=== PATIENT | female | born 1955 | race Caucasian/White ===

== ENCOUNTER 2020-06-07 15:55 | Inpatient (IN) | payer MEDICARE ==
[~2020-06-07] VITALS: Ht 157.5 cm; Wt 74.1 kg
[2020-06-07] MEDS ORDERED: ACET500T68 PO (16:29)
[2020-06-07] MEDS ORDERED: ALBUTEROL SULFATE 2.5 MG/3 ML NEBU. IH PRN (16:30)
[2020-06-07] MEDS ORDERED: ACETAMINOPHEN 500 MG TABLET PO PRN (16:30)
[2020-06-07] MEDS ORDERED: ALBU2.5V8 IH (16:30)
[2020-06-07] MEDS ORDERED: MAG HYDROX/AL HYDROX/SIMETH 30 ML ORAL.SUSP PO PRN (16:30)
[2020-06-07] MEDS ORDERED: TRIAMCINOLONE ACETONIDE 0.1% TOPICAL OINTMENT 15GM TUBE. TP PRN (16:30)
[2020-06-07] MEDS ORDERED: KETOCONAZOLE 2% SHAMPOO 120ML BOTTLE. TP PRN (16:30)
[2020-06-07] MEDS ORDERED: MAGNESIUM HYDROXIDE 2,400 MG/30 ML ORAL.SUSP. PO PRN (16:30)
[2020-06-07] MEDS ORDERED: METHYL SALICYLATE/MENTHOL TOPICAL OINTMENT 57GM TUBE. TP PRN (16:30)
--- NOTE | 2020-06-07 16:46 | NUR ---
Admission Note with Justification for Admission to [facility] Patient admitted to [facility] for protective oversight for emergency stabilization of acute psychiatric crisis. Pt admitted from: [facility] after being at [facility] [place] Mode of arrival: Secure Transport Accompanied By: Secure Transport Precipitating behaviors that initiated intake and admission: paranoia, aud hallucinations, hitting herself in the head, and making statement "I want to end this" Description of failure of out patient attempts at stabilization in previous setting list behavior and medication trials: hospitalization at [facility], med adjustments, psych consult, one on one monitoring Behaviors and assessment findings upon admission: calm and cooperative during admission process Plan: Admit for protective oversight for adjustment and stabilization of medications, behaviors and mood. Intense treatment regimen including groups, medication adjustments, therapy, consistent regimen for ADL's, self care, and sleep hygiene. Daily monitoring by Inpatient staff, Psychiatry, and Medical Physician.
[2020-06-07] MEDS: DICLOFENAC SODIUM 1% TOPICAL GEL 100GM TUBE. TP SCH ×2 (17:00→20:20)
[2020-06-07] MEDS ORDERED: ISOS30TA68 PO (17:07)
[2020-06-07] MEDS ORDERED: ATOR20TA58 PO (17:07)
[2020-06-07] MEDS ORDERED: SENN8.6T11 PO (17:07)
[2020-06-07] MEDS ORDERED: CALC-56 PO (17:07)
[2020-06-07] MEDS ORDERED: PANT40TA6 PO (17:07)
[2020-06-07] MEDS ORDERED: QUET300T5 PO ×2 (17:07)
[2020-06-07] MEDS ORDERED: TRAM50TA PO (17:07)
[2020-06-07] MEDS ORDERED: SALS500T11 PO ×2 (17:07)
[2020-06-07] MEDS ORDERED: FURO20TA3 PO (17:07)
[2020-06-07] MEDS ORDERED: HYDR25TA PO (17:07)
[2020-06-07] MEDS ORDERED: ARIP15TA36 PO (17:07)
[2020-06-07] MEDS ORDERED: OLOD4MIS2 IH (17:07)
[2020-06-07] MEDS ORDERED: DICL100G18 TP (17:07)
[2020-06-07] MEDS ORDERED: ROPI0.25 PO (17:07)
[2020-06-07] MEDS ORDERED: MELA3TAB19 PO (17:07)
[2020-06-07] MEDS ORDERED: TRIA15OI TP (17:07)
[2020-06-07] MEDS ORDERED: CLON0.5T4 PO (17:07)
[2020-06-07] MEDS ORDERED: ASPI-889 PO (17:07)
[2020-06-07] MEDS ORDERED: EMOL85CR TP (17:07)
[2020-06-07] MEDS ORDERED: AMLO-186 PO (17:07)
[2020-06-07] MEDS ORDERED: METO25TA4 PO (17:07)
[2020-06-07] MEDS ORDERED: DOCU-109 PO (17:07)
[2020-06-07] MEDS ORDERED: KETO120S4 TP (17:07)
[2020-06-07] MEDS ORDERED: FLUO40CA9 PO (17:07)
[2020-06-07] MEDS ORDERED: LEVO50TA72 PO (17:07)
[2020-06-07] MEDS ORDERED: LIRA3PEN SQ (17:07)
[2020-06-07] MEDS ORDERED: POTA10TA5 PO (17:07)
[2020-06-07 17:18] VITALS: BP 122/85
[2020-06-07] MEDS ORDERED: VITS A & D/LANOLIN TOPICAL OINTMENT 42GM TUBE. TP PRN (17:45)
--- NOTE | 2020-06-07 18:10 | NUR ---
NSG NOTE; CALM WITH ON ARRIVAL AND WITH ASSESSMENT
--- NOTE | 2020-06-07 18:17 | EKG ---
[address] [address] Test Date: 2020-06-07 Test Time: 16:14:12 Pat Name: MANJINDER OMALLEY Department: Room: [address] [place] [address] Gender: F Restaurant Crew: : [id number] Requested By: FIDEL NICKERSON Order Number: [id number] Reading MD: Measurements Intervals [place] Rate: P: NE: QRS: QRSD: T: QT: QTc: Interpretive Statements
[2020-06-07] MEDS ORDERED: ALBUTEROL SULFATE 8GM INHALER. INH PRN (18:30)
[2020-06-07 18:57] LABS: BACTERIA,URINE 0 /HPF (0-FEW); BILIRUBIN,URINE NEG (NEG); CLARITY,URINE CLEAR; COLOR,URINE COLORLESS; GLUCOSE,URINE NEG (NEG); NITRITE,URINE NEG (NEG); RBC,URINE 0 /HPF (0-2); UROBILINOGEN,URINE 0.2 mg/dL (0.2 mg/dL); WBC,URINE 0 /HPF (0-4)
[2020-06-07 19:22] LABS: BASO # 0.1 x10^3/uL (0.0-0.2); BASO % 1 % (0-3); EOS # 0.2 x10^3/uL (0.0-0.7); EOS % 3 % (0-3); HEMATOCRIT 35.9 % (36.0-47.0); HEMOGLOBIN 11.6 g/dL (12.0-15.5); LYMPH # 1.4 x10^3/uL (1.0-4.8); LYMPH % 14 % (24-48); MEAN CORPUSCULAR HEMOGLOBIN 27 pg (25-35); MEAN CORPUSCULAR HGB CONC 32 g/dL (31-37); MEAN CORPUSCULAR VOLUME 83 fL (79-100); MONO # 0.9 x10^3/uL (0.0-1.1); MONO % 9 % (0-9); NEUT # 7.1 x10^3uL (1.8-7.7); NEUT % 74 % (31-73); PLATELET COUNT 340 x10^3/uL (140-400); RED BLOOD COUNT 4.35 x10^6/uL (3.50-5.40); RED CELL DISTRIBUTION WIDTH 16.5 % (11.5-14.5); WHITE BLOOD COUNT 9.6 x10^3/uL (4.0-11.0)
[2020-06-07 19:31] LABS: ALBUMIN 3.2 g/dL (3.4-5.0); ALBUMIN/GLOBULIN RATIO 0.8 (1.0-1.7); CALCIUM 9.3 mg/dL (8.5-10.1); CREATININE 1.3 mg/dL (0.6-1.0); MAGNESIUM 1.9 mg/dL (1.8-2.4); POTASSIUM 3.9 mmol/L (3.5-5.1); TOTAL BILIRUBIN 0.3 mg/dL (0.2-1.0); TOTAL PROTEIN 7.4 g/dL (6.4-8.2)
[2020-06-07] MEDS: MELATONIN 3 MG TABLET PO SCH (20:18)
[2020-06-07] MEDS: DOCUSATE SODIUM 100 MG CAPSULE PO SCH (20:18)
[2020-06-07] MEDS: SENNOSIDES 8.6 MG TABLET PO SCH (20:18)
[2020-06-07] MEDS: ATORVASTATIN CALCIUM 20 MG TABLET PO SCH (20:18)
[2020-06-07] MEDS: rOPINIRole 0.5 MG TABLET. PO SCH (20:18)
[2020-06-07] MEDS: POTASSIUM CHLORIDE 10 MEQ TABLET.ER. PO SCH (20:18)
[2020-06-07] MEDS: METOPROLOL TART IMMED RELEASE 25 MG TABLET. PO SCH (20:19)
[2020-06-07] MEDS: hydrOXYzine HCL 25 MG TABLET PO SCH (20:19)
[2020-06-07] MEDS: CALCIUM CARB/VIT D3 500/200 TABLET PO SCH (20:19)
[2020-06-07] MEDS: QUEtiapine 100 MG TABLET. PO SCH (20:20)
[2020-06-07] MEDS: MINERAL OIL/PETROLATUM TOPICAL CREAM 113GM JAR. TP SCH (20:20)
[2020-06-07] MEDS: traMADol 50 MG TABLET PO PRN (23:35)
[2020-06-07] MEDS: ACETAMINOPHEN 325 MG TABLET PO PRN (23:35)
--- NOTE | 2020-06-08 00:08 | NUR ---
Pt has been in her room tonight, meds were taken whole without difficulty. She said she is hearing voices telling her she is a bitch and worthless. She also said she sees masked faces outside the window. She said she felt paranoid about her bed and being in the hospital. She finally is settled in bed with cpap on. PRN pain meds given for pain of recent surgical sites Left chest. Incisions are open to air, clean and dry with sutures in place and no sign of infection.
--- NOTE | 2020-06-08 01:16 | NUR ---
Pt is sleeping now.
[2020-06-08] MEDS: LEVOTHYROXINE 50 MCG TABLET PO SCH (05:41)
[2020-06-08] MEDS: SENNOSIDES 8.6 MG TABLET PO SCH ×2 (05:43→14:36)
[2020-06-08 06:24] VITALS: BP 135/70
[2020-06-08] MEDS: CALCIUM CARB/VIT D3 500/200 TABLET PO SCH ×2 (07:33→19:31)
[2020-06-08] MEDS: hydrOXYzine HCL 25 MG TABLET PO SCH ×3 (07:34→19:32)
[2020-06-08] MEDS: DOCUSATE SODIUM 100 MG CAPSULE PO SCH ×2 (07:34→19:32)
[2020-06-08] MEDS: POTASSIUM CHLORIDE 10 MEQ TABLET.ER. PO SCH ×3 (07:34→19:32)
[2020-06-08] MEDS: METOPROLOL TART IMMED RELEASE 25 MG TABLET. PO SCH ×2 (07:35→19:32)
[2020-06-08] MEDS: ISOSORBIDE MONONITRATE ER 30 MG TAB.ER.24H PO SCH (07:37)
[2020-06-08] MEDS: QUEtiapine 100 MG TABLET. PO SCH ×2 (07:37→19:33)
[2020-06-08] MEDS: ARIPiprazole 15 MG TABLET PO SCH (07:37)
[2020-06-08] MEDS: FLUoxetine HCL 20 MG CAPSULE PO SCH (07:37)
[2020-06-08] MEDS: LIRAGLUTIDE 1.8 MG SQ SCH (07:38)
[2020-06-08] MEDS: PANTOPRAZOLE 40 MG TABLET. PO SCH (07:38)
[2020-06-08] MEDS: ASPIRIN ENTERIC COATED 81 MG TABLET.DR. PO SCH (07:38)
[2020-06-08] MEDS: NON FORMULARY ITEM (Olodaterol HCl (Striverdi Respimat) 4 GM) IH SCH (07:38)
[2020-06-08] MEDS: amLODIPine BESYLATE 5 MG TABLET PO SCH (07:38)
[2020-06-08] MEDS: DICLOFENAC SODIUM 1% TOPICAL GEL 100GM TUBE. TP SCH ×4 (07:40→19:39)
[2020-06-08] MEDS: MINERAL OIL/PETROLATUM TOPICAL CREAM 113GM JAR. TP SCH ×2 (07:41→19:39)
--- NOTE | 2020-06-08 09:42 | NUR ---
NSG NOTE; RELIGIOSITY PT IN HALLWAY TALKING TO HERSELF AND ASKING TO TALK TO GOD. WHEN I ENGAGED HER IN CONVERSATION IN HER ROOM, SHE WAS MORE WORRIED ABOUT HER CAT AND MISSING AN APPT WITH HER [facility]. PER HER REQUEST, I LEFT A MESSAGE WITH NELIA SWEENEY AT THE [facility], EXT [id number], TO LET HER KNOW THE PT IS HERE.
--- NOTE | 2020-06-08 10:17 | NUR ---
NSG NOTE; CAT IN BOARDING: PT'S CAT, TIMI, IS BEING BOARDED AT [facility], , AND HAS RESERVATIONS UNTIL June. IF PT STAYS LONGER AT [facility], THEY NEED TO BE CALLED TO EXTEND THEIR SERVICE.
[2020-06-08] MEDS: SALSALATE 500 MG PO SCH ×2 (10:46→19:36)
--- NOTE | 2020-06-08 14:15 | NUR ---
ACTIVITY THERAPY ASSESSMENT completed based on notes, observation and interview. Pt was sitting in her wheelchair and the day room. Pt was compliant and wiling to answer questions. When asked what she likes to pt said "treasure every minute." Pt said that she likes the terminator movie as she began to quote the movie. Pt said that she also likes all kinds of music. Pt was having hallucinations throughout assessment and she said they were calling her mean names. Pt reports she is not and has no children. Pt said that if she had children "it would come out with ten heads." AT asked pt about her hallucinations and she started to become over stimulated. There were some topics pt did not want to talk about. Pt became frustrated with her hallucinations and the conversations around her. Pt reported that she had part of her lung taken out. Pt is oriented to placement prior to admission, year, date and location. AT asked pt if she reported any stress at this time and she said "I think my head is going to explode." Pt spoke about her cat, Flurafaely, and said that someone is taking care of him. Pt said that she would like to make a phone call to have a friend check on her apartment. Pt was distracted throughout assessment but pleasant and redirectable. Initial goal aimed to increase stress management and relaxation skills. Pt will participate in at least three individual or group Activity Therapy sessions per week. Addendum: 06/14/20 at 1108 by CHIARA LUGO ACT Goal repeated 06/14
[2020-06-08] MEDS: FUROSEMIDE 20 MG TABLET PO SCH (14:36)
[2020-06-08 15:46] VITALS: BP 115/68
--- NOTE | 2020-06-08 16:26 | NUR ---
NSG NOTE; PT'S APARTMENT COMPLEX PHONE NUMBER: MANAGERS BIANCA OR FARAZ RODRIGUEZ APTS: [phone]
--- NOTE | 2020-06-08 16:28 | NUR ---
NSG NOTE; [place] PSYCH INSTRUCTIONAL COACH: NELIA HORN RN IS THE PT'S PSYCH INSTRUCTIONAL COACH AT THE [facility] IN [place]. [phone] EXT [id number] OR CELL [phone]
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
[2020-06-08 19:19] LABS: THYROID STIM HORMONE (TSH) 2.087 uIU/mL (0.358-3.740)
[2020-06-08] MEDS: traMADol 50 MG TABLET PO PRN (19:27)
[2020-06-08] MEDS: MELATONIN 3 MG TABLET PO SCH (19:32)
[2020-06-08] MEDS: ATORVASTATIN CALCIUM 20 MG TABLET PO SCH (19:33)
[2020-06-08] MEDS: rOPINIRole 0.5 MG TABLET. PO SCH (19:33)
[2020-06-08 22:07] LABS: THYROXINE 3.7 ug/dL (4.5-12.0)
[2020-06-09 00:07] LABS: HEMOGLOBIN A1C 5.5 % (4.8-5.6)
--- NOTE | 2020-06-09 03:04 | NUR ---
Pt was mainly in her room tonight and has been paranoid and having delusions. She said the music tablet was controlling her brain. When she hears talking on the unit she thinks people are talking about her. She took meds whole without difficulty was cooperative with HS care and has been sleeping well and is using her using her CPAP.
[2020-06-09] MEDS: LEVOTHYROXINE 50 MCG TABLET PO SCH (05:25)
[2020-06-09] MEDS: SENNOSIDES 8.6 MG TABLET PO SCH ×2 (05:25→16:50)
[2020-06-09 06:13] VITALS: BP 116/71
[2020-06-09] MEDS: ACETAMINOPHEN 325 MG TABLET PO PRN (06:32)
--- NOTE | 2020-06-09 06:39 | NUR ---
Pt temp 99 this and reports some non productive cough. IS provided and pt familiar with use, increased fluid intake explained and pt verbalized understanding. pt is recent post op for lobectomy, operative site without s/s of infection. PRN Tylenol given for incision soreness.
[2020-06-09] MEDS: NON FORMULARY ITEM (Olodaterol HCl (Striverdi Respimat) 4 GM) IH SCH (08:00)
[2020-06-09] MEDS: LIRAGLUTIDE 1.8 MG SQ SCH (08:00)
[2020-06-09] MEDS: FLUoxetine HCL 20 MG CAPSULE PO SCH (08:14)
[2020-06-09] MEDS: amLODIPine BESYLATE 5 MG TABLET PO SCH (08:15)
[2020-06-09] MEDS: ISOSORBIDE MONONITRATE ER 30 MG TAB.ER.24H PO SCH (08:15)
[2020-06-09] MEDS: DOCUSATE SODIUM 100 MG CAPSULE PO SCH ×2 (08:15→20:19)
[2020-06-09] MEDS: PANTOPRAZOLE 40 MG TABLET. PO SCH (08:15)
[2020-06-09] MEDS: ARIPiprazole 15 MG TABLET PO SCH (08:16)
[2020-06-09] MEDS: CALCIUM CARB/VIT D3 500/200 TABLET PO SCH ×2 (08:16→20:19)
[2020-06-09] MEDS: QUEtiapine 100 MG TABLET. PO SCH ×2 (08:16→20:18)
[2020-06-09] MEDS: hydrOXYzine HCL 25 MG TABLET PO SCH ×3 (08:16→20:19)
[2020-06-09] MEDS: POTASSIUM CHLORIDE 10 MEQ TABLET.ER. PO SCH ×3 (08:16→20:20)
[2020-06-09] MEDS: SALSALATE 500 MG PO SCH ×2 (08:17→20:23)
[2020-06-09] MEDS: ASPIRIN ENTERIC COATED 81 MG TABLET.DR. PO SCH (08:17)
[2020-06-09] MEDS: METOPROLOL TART IMMED RELEASE 25 MG TABLET. PO SCH ×2 (08:17→20:21)
[2020-06-09] MEDS: DICLOFENAC SODIUM 1% TOPICAL GEL 100GM TUBE. TP SCH ×4 (08:19→20:22)
[2020-06-09] MEDS: MINERAL OIL/PETROLATUM TOPICAL CREAM 113GM JAR. TP SCH ×2 (08:19→20:23)
--- NOTE | 2020-06-09 09:48 | NUR ---
Patient is calm and using her I.S. Patient calmly took her medication. Patient has no further needs at this time.
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
[2020-06-09 16:46] VITALS: BP 108/60
[2020-06-09] MEDS: FUROSEMIDE 20 MG TABLET PO SCH (16:50)
[2020-06-09] MEDS: traMADol 50 MG TABLET PO PRN (16:52)
[2020-06-09] MEDS: MELATONIN 3 MG TABLET PO SCH (20:18)
[2020-06-09] MEDS: ATORVASTATIN CALCIUM 20 MG TABLET PO SCH (20:19)
[2020-06-09] MEDS: rOPINIRole 0.5 MG TABLET. PO SCH (20:20)
[2020-06-09] MEDS: clonazePAM 0.5 MG TABLET PO PRN (21:27)
--- NOTE | 2020-06-09 23:41 | NUR ---
Pt located in her room this evening. Pt compliant with whole medications; however becomes very short and irritable with assessment questions. When asked if pt is having hallucinations, pt stated "If I don't talk about them, they go away." Later in the evening, pt up at the nurses station window seen hitting her head repeatedly with her fist. Pt anxious and stated that she is hearing voices. Pt stated "you don't want to know what they say about you." PRN Klonopin administered at that time.
--- NOTE | 2020-06-09 23:54 | PN ---
DATE: 06/09/2020 SUBJECTIVE: The patient was seen today, met with the staff, chart reviewed. Staff reports that she is still hallucinating, paranoid, religiously preoccupied, but overall cooperative. The patient also states "I am delusional." The patient is having difficulty starting out the reality ____ delusions and hallucinations. OBSERVATION: VITAL SIGNS: Temperature 99.7, blood pressure 116/71, pulse 73, respirations 16, O2 sat 95%. GENERAL: Slept about 6 hours last night. The patient's appetite is fair. LABORATORY DATA: The patient's lab reviewed. Hemoglobin 11.6. The patient's TSH was 2.087 and thyroxine that is T4 3.7, total T3 was 55. The patient's creatinine level was 1.3, glucose 145. MEDICATIONS: The patient's current medications include Abilify 15 mg daily, Seroquel 300 mg daily and 600 mg at night, melatonin 3 mg at night and Klonopin 0.5 mg b.i.d. p.r.n. The patient is not having any side effects. ASSESSMENT: Schizoaffective disorder, depressed and also psychotic symptoms. PLAN: To continue with the current treatment. LENGTH OF STAY: 7-10 days. FIDEL NICKERSON MD DR: MIKY/radha JOB#: [id number] / [id number]
[2020-06-10] MEDS: LEVOTHYROXINE 50 MCG TABLET PO SCH (05:36)
[2020-06-10 06:04] VITALS: BP 114/67
[2020-06-10] MEDS: NON FORMULARY ITEM (Olodaterol HCl (Striverdi Respimat) 4 GM) IH SCH (07:15)
[2020-06-10] MEDS: LIRAGLUTIDE 1.8 MG SQ SCH (07:22)
[2020-06-10] MEDS: hydrOXYzine HCL 25 MG TABLET PO SCH ×3 (07:59→19:58)
[2020-06-10] MEDS: ASPIRIN ENTERIC COATED 81 MG TABLET.DR. PO SCH (07:59)
[2020-06-10] MEDS: SENNOSIDES 8.6 MG TABLET PO SCH ×2 (07:59→19:58)
[2020-06-10] MEDS: SALSALATE 500 MG PO SCH ×2 (07:59→20:17)
[2020-06-10] MEDS: POTASSIUM CHLORIDE 10 MEQ TABLET.ER. PO SCH ×3 (08:00→19:59)
[2020-06-10] MEDS: DOCUSATE SODIUM 100 MG CAPSULE PO SCH ×2 (08:00→19:59)
[2020-06-10] MEDS: CALCIUM CARB/VIT D3 500/200 TABLET PO SCH ×2 (08:00→19:58)
[2020-06-10] MEDS: METOPROLOL TART IMMED RELEASE 25 MG TABLET. PO SCH ×2 (08:00→19:59)
[2020-06-10] MEDS: QUEtiapine 100 MG TABLET. PO SCH ×2 (08:00→20:00)
[2020-06-10] MEDS: PANTOPRAZOLE 40 MG TABLET. PO SCH (08:01)
[2020-06-10] MEDS: ARIPiprazole 15 MG TABLET PO SCH (08:01)
[2020-06-10] MEDS: ISOSORBIDE MONONITRATE ER 30 MG TAB.ER.24H PO SCH (08:01)
[2020-06-10] MEDS: FLUoxetine HCL 20 MG CAPSULE PO SCH (08:01)
[2020-06-10] MEDS: amLODIPine BESYLATE 5 MG TABLET PO SCH (08:01)
[2020-06-10] MEDS: DICLOFENAC SODIUM 1% TOPICAL GEL 100GM TUBE. TP SCH ×4 (08:02→20:10)
[2020-06-10] MEDS: MINERAL OIL/PETROLATUM TOPICAL CREAM 113GM JAR. TP SCH ×2 (08:02→20:11)
--- NOTE | 2020-06-10 09:04 | NUR ---
Patient looking forward to calling family. patient tearful this morning but compliant with medication and assessment. patient misses her parents.
[2020-06-10] MEDS: clonazePAM 0.5 MG TABLET PO PRN (10:48)
[2020-06-10 16:21] VITALS: BP 123/70
[2020-06-10] MEDS: FUROSEMIDE 20 MG TABLET PO SCH (17:14)
[2020-06-10] MEDS: rOPINIRole 0.5 MG TABLET. PO SCH (19:57)
[2020-06-10] MEDS: ATORVASTATIN CALCIUM 20 MG TABLET PO SCH (19:58)
[2020-06-10] MEDS: MELATONIN 3 MG TABLET PO SCH (20:00)
--- NOTE | 2020-06-10 22:00 | PN ---
DATE: 06/10/2020 SUBJECTIVE: The patient was seen today, met with the staff, chart reviewed, and covering for Dr. Escalante. Staff reports the patient is still hallucinating, paranoid, not happy with herself. The patient also appears to be depressed. OBSERVATION: VITAL SIGNS: Temperature 97.2, blood pressure 114/67, pulse 64, respirations 14, O2 sat 94%. GENERAL: Slept only about 2-1/2 hours last night. The patient's appetite is decreased. MEDICATIONS: The patient's current medications include Abilify 15 mg daily, amlodipine 5 mg daily, Seroquel 300 mg daily, Prozac 80 mg daily, Seroquel 600 mg at night, melatonin 3 mg at night. She is also on Protonix, levothyroxine, ropinirole, metoprolol, Lipitor, and tramadol. The patient is not having any side effects. LABORATORY DATA: The patient's lab reviewed. ASSESSMENT: Schizoaffective disorder, depressed and psychotic symptoms. PLAN: To continue with treatment. LENGTH OF STAY: 7-10 days. FIDEL NICKERSON MD DR: MIKY/radha JOB#: [id number] / [id number]
--- NOTE | 2020-06-10 22:32 | CONS ---
DATE OF CONSULTATION: 06/10/2020 ATTENDING PHYSICIAN: Leah Allen MD HISTORY OF PRESENT ILLNESS: We are asked to see the patient for medical consultation. The patient is a 64-year-old female, sent here for direct admit from [facility]. She has longstanding medical issues with underlying schizoaffective disorder and major depression. She is a smoker. She also recently had a surgical procedure. Evidently, it was a thoracoscopy of the left lung with eventual partial lobectomy and again details are sketchy. This was done 9 days ago. There is still a thoracoscopy scar with sutures. We are in the process of calling her surgeon, Dr. Mclean, to ascertain what the pathology report was, whether it was benign or malignant and how long that the sutures need to stay in before they can be removed. In the meantime, she is medically stable. She is alert. She denied any chest pain, shortness of breath, palpitation, fevers or chills. CURRENT MEDICATIONS: Lists include the following: She is on Tylenol, aluminum hydroxide, albuterol, amlodipine, Abilify, aspirin, Lipitor, calcium, Klonopin, Voltaren, Colace, Prozac, Lasix, Atarax, Imdur, ketaconazole, Synthroid, magnesium hydroxide, melatonin, metoprolol, Protonix, potassium, Seroquel, Requip, salsalate, senna, tramadol, triamcinolone, vitamin A. ALLERGIES: SHE HAS ALLERGIES TO CHLORPROMAZINE, DIPHENHYDRAMINE, LISINOPRIL AND ZOCOR. EXACT REACTIONS UNCLEAR. SOCIAL HISTORY: She is a smoker. No alcohol use. FAMILY HISTORY: Noncontributory. REVIEW OF SYSTEMS: Significant for the recent left thoracoscopy, she is unclear as to what the diagnosis is. We are in the process of trying to find out the pathology report. No COVID exposure. She is still a smoker. All other systems reviewed and turned to be negative. PHYSICAL EXAMINATION: GENERAL: When I saw her, this is a pleasant, middle-aged female. INITIAL VITAL SIGNS: Showed a blood pressure 114/67, pulse 64 and regular, temperature 97.2 degrees Fahrenheit. Room air saturation 94% on room air. HEENT: Head is without trauma. Pupils are reactive. Sclerae nonicteric. Oropharynx is clear. NECK: Supple, no bruits. LUNGS: Otherwise clear. CARDIOVASCULAR: Showed regular heart tones. No gallops. ABDOMEN: Soft, obese, protuberant. I looked at her thorax, there is a curvilinear small thoracoscopy scar. The skin is clean. There is no inflammation. EXTREMITIES: Showed trace edema. NEUROLOGIC: Focally intact. Speech is fluent. She had no focal deficits. SKIN: Warm and dry. PERTINENT LABORATORY STUDIES: Hemoglobin 11.6 g/dL with white count of 9600. Admission electrolytes within normal range. Creatinine is 1.3 mg/dL, nonfasting blood sugar 145. Iron level is 46. Transaminases are normal. Cholesterol is 172. Thyroid function studies were normal. Serology negative for treponema pallidum. ASSESSMENT: 1. This 64-year-old female has underlying schizoaffective disorder. She is here for further evaluation and treatment of her underlying condition. 2. Chronic obstructive pulmonary disease. 3. Recent thoracoscopy with resection, partial lobectomy of the left lung. The pathology is pending. She still has sutures in from the procedure. 4. Essential hypertension. 5. Hypothyroidism, on replacement. RECOMMENDATIONS: 1. The patient is stable from medical standpoint. Meds were reviewed and should be continued. 2. I have asked the nursing staff to call [facility] and the offices of Dr. Mclean, a thoracic surgeon who performed the procedure. We are in the process of trying to track down the pathology reports to report to the patient as well as instructions as when to remove the sutures. Thank you again for asking me to see this patient for medical consultation. We should gladly follow along during her inpatient care. NELLY BRADFORD MD DR: MALISSA/radha JOB#: [id number] / [id number]
--- NOTE | 2020-06-11 03:04 | NUR ---
Pt has been in her room tonight. Meds were taken whole. She has poor eye contact and was not as interactive with nurse tonight. Since going to bed she has been sleeping well.
[2020-06-11] MEDS: LEVOTHYROXINE 50 MCG TABLET PO SCH (05:38)
[2020-06-11] MEDS: traMADol 50 MG TABLET PO PRN (05:39)
--- NOTE | 2020-06-11 05:39 | NUR ---
PRN Tramadol given for L chest incisional pain.
[2020-06-11 06:14] VITALS: BP 132/87
[2020-06-11] MEDS: ARIPiprazole 15 MG TABLET PO SCH (07:33)
[2020-06-11] MEDS: QUEtiapine 100 MG TABLET. PO SCH ×2 (07:33→20:23)
[2020-06-11] MEDS: FLUoxetine HCL 20 MG CAPSULE PO SCH (07:33)
[2020-06-11] MEDS: PANTOPRAZOLE 40 MG TABLET. PO SCH (07:34)
[2020-06-11] MEDS: hydrOXYzine HCL 25 MG TABLET PO SCH ×3 (07:34→20:25)
[2020-06-11] MEDS: amLODIPine BESYLATE 5 MG TABLET PO SCH (07:34)
[2020-06-11] MEDS: ISOSORBIDE MONONITRATE ER 30 MG TAB.ER.24H PO SCH (07:34)
[2020-06-11] MEDS: POTASSIUM CHLORIDE 10 MEQ TABLET.ER. PO SCH ×3 (07:34→20:22)
[2020-06-11] MEDS: SENNOSIDES 8.6 MG TABLET PO SCH ×2 (07:34→20:24)
[2020-06-11] MEDS: CALCIUM CARB/VIT D3 500/200 TABLET PO SCH ×2 (07:34→20:23)
[2020-06-11] MEDS: METOPROLOL TART IMMED RELEASE 25 MG TABLET. PO SCH ×2 (07:35→20:24)
[2020-06-11] MEDS: DOCUSATE SODIUM 100 MG CAPSULE PO SCH ×2 (07:35→20:24)
[2020-06-11] MEDS: LIRAGLUTIDE 1.8 MG SQ SCH (07:36)
[2020-06-11] MEDS: NON FORMULARY ITEM (Olodaterol HCl (Striverdi Respimat) 4 GM) IH SCH (07:36)
[2020-06-11] MEDS: ASPIRIN ENTERIC COATED 81 MG TABLET.DR. PO SCH (07:36)
[2020-06-11] MEDS: SALSALATE 500 MG PO SCH ×2 (07:39→20:23)
[2020-06-11] MEDS: MINERAL OIL/PETROLATUM TOPICAL CREAM 113GM JAR. TP SCH ×2 (07:39→20:27)
[2020-06-11] MEDS: DICLOFENAC SODIUM 1% TOPICAL GEL 100GM TUBE. TP SCH ×4 (07:39→20:26)
[2020-06-11] MEDS ORDERED: POLYETHYLENE GLYCOL 3350 17 GM PACKET. PO PRN (11:00)
[2020-06-11] MEDS: FUROSEMIDE 20 MG TABLET PO SCH (14:03)
--- NOTE | 2020-06-11 14:46 | NUR ---
NSG NOTE; PATHOLOGY REPORT OF LUNG MASS PT HAD GAURI LOBECTOMY ON 05/31/20. 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
[2020-06-11 15:42] VITALS: BP 168/89
--- NOTE | 2020-06-11 15:51 | NUR ---
PAULINE NOTE; SUTCHES REMOVED DR MCALLISTER'S OFFICE CALLED AND ORDERS RECEIVED FROM JENNY NAILS TO REMOVE TO STITCHES STILL IN PLACE ON ONE TROCAR PUNCTURE SITE ON HER LEFT FLANK. SUT Addendum: 06/11/20 at 1556 by ERIC REYNOLDS RN SUTURES REMOVED WITHOUT DIFFICULTY. REDNESS NOTED AT SITE. WOUND CARE HERE TO ASSESS AND DRESS SITE
--- NOTE | 2020-06-11 16:12 | NUR ---
NSG NOTE; DOWN ON HERSELF MANJINDER CONTINUES TO BE DOWN ON HERSELF, SAYING SHE WANTS TO WEAR A MASK TO HIDE HER UGLY FACE. SHE ALSO CALLS HERSELF A CRAZY OLD LADY AND MAKES COMMENTS ABOUT HOW NO ONE WANTS TO BE AROUND HER. SHE DID SPEND A LOT OF TIME IN THE DAYROOM TODAY PARTICIPATING IN ACTIVITIES AND HAS BEEN CALM AND COMPLIANT.
--- NOTE | 2020-06-11 16:15 | NUR ---
Wound Care Wound Type/Assessment: patient seen per wound care consult. see wound assessment. SHANTA Harmon with patient and had just removed the suture to the left flank area, some redness noted, the area was cleaned, measured and redressed with a silver contact layer with a foam dressing. patient has IAD to the bilateral buttocks that appears to be healing, a very small open area to the right buttock, this area was cleaned, measured, pictured and redressed with Calazime cream. patient has some redness under the pannus, recommendations of nystatin powder. Treatment Recommendations/Plan: Recommendations to bilateral buttocks, cleanse the area and then apply A & D ointment or Calazime cream, as needed. Recommendations for the left flank wound, cleanse the area then apply a silver contact layer with a foam dressing, change every 3 days. Recommendations to the redness under the pannus, cleanse the area and apply nystatin powder. Discharge Recommendations for dressings: Notified SHANTA Harmon about the POC and wound care will continue to f/u.
[2020-06-11] MEDS: rOPINIRole 0.5 MG TABLET. PO SCH (20:17)
[2020-06-11] MEDS: MELATONIN 3 MG TABLET PO SCH (20:23)
[2020-06-11] MEDS: ATORVASTATIN CALCIUM 20 MG TABLET PO SCH (20:24)
--- NOTE | 2020-06-11 20:46 | PN ---
DATE: 06/11/2020 SUBJECTIVE: The patient was seen today, met with the staff, chart reviewed, and covering for Dr. Escalante. Staff reports continued to have paranoid thinking and also having auditory hallucinations. The patient continues to be depressed. OBSERVATION: VITAL SIGNS: Temperature 98.2, blood pressure 132/87, pulse 60, respirations 16, O2 sat 96%. GENERAL: Slept about 5 hours last night. The patient's appetite is fair. MEDICATIONS: The patient is currently on Abilify 15 mg daily, amlodipine 5 mg daily, Seroquel 300 mg daily, Prozac 80 mg daily, Seroquel 600 mg at night, melatonin 3 mg at night. She is also on Protonix, levothyroxine, ropinirole, metoprolol, Lipitor, and tramadol. The patient is not having any side effects from medications. LABORATORY DATA: The patient's lab reviewed. ASSESSMENT: Schizoaffective disorder, depressed, with psychotic symptoms. PLAN: To continue with the treatment. LENGTH OF STAY: 7-10 days. FIDEL NICKERSON MD DR: MIKY/radha JOB#: [id number] / [id number]
--- NOTE | 2020-06-12 01:10 | NUR ---
Last evening pt was in the hallway and said she is hallucinating a lot. She said the people in the "fishbowl", indicating the nurses station, all hate her. Then she said God hates her and is going to kill her. Then said when we ask her about her hallucinations it makes them get worse. She took her meds whole without issue and went to bed and has been sleeping.
[2020-06-12] MEDS: LEVOTHYROXINE 50 MCG TABLET PO SCH (02:43)
[2020-06-12] MEDS: ACETAMINOPHEN 325 MG TABLET PO PRN (02:43)
[2020-06-12] MEDS: clonazePAM 0.5 MG TABLET PO PRN ×2 (02:56→13:18)
--- NOTE | 2020-06-12 03:00 | NUR ---
PRN tylenol and clonazepam given. Pt reports pain of surgical site and said her mind is racing.
[2020-06-12 06:05] VITALS: BP 107/78
[2020-06-12] MEDS: NON FORMULARY ITEM (Olodaterol HCl (Striverdi Respimat) 4 GM) IH SCH (08:00)
[2020-06-12] MEDS: LIRAGLUTIDE 1.8 MG SQ SCH (08:00)
[2020-06-12] MEDS: ISOSORBIDE MONONITRATE ER 30 MG TAB.ER.24H PO SCH (08:00)
[2020-06-12] MEDS: CALCIUM CARB/VIT D3 500/200 TABLET PO SCH ×2 (08:22→19:45)
[2020-06-12] MEDS: SALSALATE 500 MG PO SCH ×2 (08:22→20:08)
[2020-06-12] MEDS: amLODIPine BESYLATE 5 MG TABLET PO SCH (08:22)
[2020-06-12] MEDS: ASPIRIN ENTERIC COATED 81 MG TABLET.DR. PO SCH (08:23)
[2020-06-12] MEDS: POTASSIUM CHLORIDE 10 MEQ TABLET.ER. PO SCH ×3 (08:23→19:45)
[2020-06-12] MEDS: hydrOXYzine HCL 25 MG TABLET PO SCH ×3 (08:23→19:46)
[2020-06-12] MEDS: ARIPiprazole 15 MG TABLET PO SCH (08:23)
[2020-06-12] MEDS: DOCUSATE SODIUM 100 MG CAPSULE PO SCH ×2 (08:24→19:46)
[2020-06-12] MEDS: SENNOSIDES 8.6 MG TABLET PO SCH ×2 (08:24→19:46)
[2020-06-12] MEDS: QUEtiapine 100 MG TABLET. PO SCH ×2 (08:24→19:46)
[2020-06-12] MEDS: FLUoxetine HCL 20 MG CAPSULE PO SCH (08:24)
[2020-06-12] MEDS: PANTOPRAZOLE 40 MG TABLET. PO SCH (08:24)
[2020-06-12] MEDS: METOPROLOL TART IMMED RELEASE 25 MG TABLET. PO SCH ×2 (09:00→19:47)
[2020-06-12] MEDS: DICLOFENAC SODIUM 1% TOPICAL GEL 100GM TUBE. TP SCH ×4 (09:00→20:09)
[2020-06-12] MEDS: MINERAL OIL/PETROLATUM TOPICAL CREAM 113GM JAR. TP SCH ×2 (09:00→20:11)
[2020-06-12] MEDS: FUROSEMIDE 20 MG TABLET PO SCH (13:18)
--- NOTE | 2020-06-12 13:32 | NUR ---
PATIENT LOCATED IN A HALLWAY THIS AM UPON ASSESSMENT, COMPLIANT WITH MEDICATIONS, SLIGHTLY IRRITABLE WITH ASSESSMENT, STATED SHE HEARS VOICES, ALSO SHE C/O TINNITUS , STATED THAT RINGING IN HER EARS GETTING TO LOUD AND DRIVES HER CRAZY. PATIENT TALKED TO GLADYS WOMACK LATER AND C/O SEEING THE MED ON FRONT OF HER EXPOSED HIMSELF NAKED BUT WAS NOT SURE IF THAT WAS REAL. PATIENT BECAME ANXIOUS AND DISORGANIZED THIS AFTERNOON, CLONAZEPAM PRN GIVEN TO DECREASE ANXIETY.
--- NOTE | 2020-06-12 14:53 | NUR ---
CONSULT FOR DR. ESPOSITO HAS BEEN PAGED.
--- NOTE | 2020-06-12 15:15 | NUR ---
AT walked past pt room and heard a noise. AT turned around to look into pt's room. Pt had broken pieces of her CPAP machine. Pt started to curse and say "what do you care, it's not yours it's mine." AT tried to redirect pt at this point and tell her that we would fix the CPAP machine. Nurse came in at this time. Pt began making SI statements such as "I'm already " "tell me how I should do it" she began to talk about going outside and jumping or using a ladder. AT and Nurse were trying to redirect at this point but she continued to make SI statements. Nurse requested pt to move to the day room where she could be closely monitored.
[2020-06-12 15:57] VITALS: BP 129/78
--- NOTE | 2020-06-12 17:32 | NUR ---
Nursing note: Pt was in her room when AT caught my attention and I went into pt's room to assist. Pt was holding parts of her CPAP machine stating "I'm only hurting myself, what does it matter to you?" Pt was visibly upset and having a difficult time with her feelings, believing that staff does not care about her. Redirection was attempted multiple times, but pt proceeded to talk about dying and killing herself asking "How should I do it? Jump through the window and break it? Go outside and use that ladder?" Attempts at redirection were continued and it was suggested to pt that she go outside on the patio to get some fresh air while she could also be more closely monitored by staff. Primary nurse notified of interaction.
[2020-06-12] MEDS: rOPINIRole 0.5 MG TABLET. PO SCH (19:46)
[2020-06-12] MEDS: ATORVASTATIN CALCIUM 20 MG TABLET PO SCH (19:46)
[2020-06-12] MEDS: MELATONIN 3 MG TABLET PO SCH (19:46)
--- NOTE | 2020-06-12 21:47 | NUR ---
Nursing Note Pt pleasant and cooperative, states that dayshift will not speak to her and she feels like she has been alienated here. She denies SI, states she said things she didn't mean and that she wanted them to talk to her. We talked about starting fresh, with a new shift, about letting go, and not holding grudges. She felt validated and ready for HS.
[2020-06-12] MEDS: traMADol 50 MG TABLET PO PRN (22:39)
[2020-06-13] MEDS: ACETAMINOPHEN 325 MG TABLET PO PRN ×2 (04:20→22:29)
--- NOTE | 2020-06-13 04:22 | NUR ---
PRN tylenol given per patient request for pain in her left side.
[2020-06-13] MEDS: LEVOTHYROXINE 50 MCG TABLET PO SCH (05:20)
[2020-06-13 06:01] VITALS: BP 165/76
[2020-06-13] MEDS: traMADol 50 MG TABLET PO PRN (06:30)
[2020-06-13] MEDS: ASPIRIN ENTERIC COATED 81 MG TABLET.DR. PO SCH (07:58)
[2020-06-13] MEDS: FLUoxetine HCL 20 MG CAPSULE PO SCH (07:58)
[2020-06-13] MEDS: amLODIPine BESYLATE 5 MG TABLET PO SCH (07:59)
[2020-06-13] MEDS: ISOSORBIDE MONONITRATE ER 30 MG TAB.ER.24H PO SCH (07:59)
[2020-06-13] MEDS: DOCUSATE SODIUM 100 MG CAPSULE PO SCH ×2 (07:59→20:32)
[2020-06-13] MEDS: POTASSIUM CHLORIDE 10 MEQ TABLET.ER. PO SCH ×3 (08:00→20:32)
[2020-06-13] MEDS: PANTOPRAZOLE 40 MG TABLET. PO SCH (08:00)
[2020-06-13] MEDS: SENNOSIDES 8.6 MG TABLET PO SCH ×2 (08:00→20:32)
[2020-06-13] MEDS: ARIPiprazole 15 MG TABLET PO SCH (08:00)
[2020-06-13] MEDS: QUEtiapine 100 MG TABLET. PO SCH ×2 (08:00→20:33)
[2020-06-13] MEDS: NON FORMULARY ITEM (Olodaterol HCl (Striverdi Respimat) 4 GM) IH SCH (08:00)
[2020-06-13] MEDS: METOPROLOL TART IMMED RELEASE 25 MG TABLET. PO SCH ×2 (08:00→20:33)
[2020-06-13] MEDS: LIRAGLUTIDE 1.8 MG SQ SCH (08:00)
[2020-06-13] MEDS: CALCIUM CARB/VIT D3 500/200 TABLET PO SCH ×2 (08:01→20:24)
[2020-06-13] MEDS: hydrOXYzine HCL 25 MG TABLET PO SCH ×3 (08:01→20:33)
--- NOTE | 2020-06-13 08:03 | RAD ---
PA and lateral chest. HISTORY: Short of air, wheezes, crackles PA and lateral views were taken of the chest. There are hazy infiltrates in the right upper lobe and right lower lobe. There is a possible left pleural effusion. There is focal consolidation or atelecta sis in the left lung base. Heart is within normal limits in size. There is no prior study for compari son. Right lung infiltrates could be related to atypical or Covid-19 pneumonia. A more typical pneumo isatu is possible in the left. CT could be of benefit. IMPRESSION: 1. Hazy right lung infiltrates. 2. Probable left pleural effusion. 3. Atelectasis or consolidative infiltrate right lung base. Electronically signed by: Dale Del Rosario MD (06/13/2020 8:01 AM) [id number]
[2020-06-13] MEDS: MINERAL OIL/PETROLATUM TOPICAL CREAM 113GM JAR. TP SCH ×2 (08:17→20:51)
[2020-06-13] MEDS: DICLOFENAC SODIUM 1% TOPICAL GEL 100GM TUBE. TP SCH ×4 (08:17→20:34)
[2020-06-13] MEDS: SALSALATE 500 MG PO SCH ×2 (08:17→20:24)
--- NOTE | 2020-06-13 09:00 | PN ---
DATE: 06/12/2020 SUBJECTIVE: Staff reports social withdrawal, depressed mood, continues to have auditory hallucinations and also complaining of loud noises in her left ear. The patient continues to have chronic pain. OBSERVATION: VITAL SIGNS: Temperature 97.9, blood pressure 107/77, pulse 56, respirations 20, O2 sat 94%. Slept about 6 hours last night. The patient's appetite poor. CURRENT MEDICATIONS: The patient's current medications include Abilify 15 mg daily, Seroquel ____ mg at night, Prozac 80 mg daily and Seroquel ____ mg at night, melatonin 3 mg at night. She is also on Protonix, levothyroxine, ropinirole, metoprolol, Lipitor, and tramadol. LABORATORY DATA: The patient's lab reviewed. ASSESSMENT: Schizoaffective disorder, depressed with psychotic features. PLAN: To continue with the treatment. LENGTH OF STAY: 7 days. FIDEL NICKERSON MD DR: MIKY/radha JOB#: [id number] / [id number]
--- NOTE | 2020-06-13 13:24 | NUR ---
NURSING NOTE PT WAS IN WC THIS AM IN DINING ROOM UPON ASSESSMENT AND MEDICATION ADMINISTRATION. PT IS A&O AND DENIES PHYSICAL PAIN BUT STATES SHE HAS EMOTIONAL PAIN. PT STATES SHE HEARS VOICES THAT SAY "WHO DO YOU THINK YOU ARE", "YOUR A PIECE OF SHIT". PT DENIES SI. PT WAS TEARFUL IN DAY ROOM THIS AFTERNOON WORRIED ABOUT HER MOTHER ND STATES HER MOTHER WAS MEAN TO HER AND TREATED HER BADLY. SHANTA VASQUEZ.
--- NOTE | 2020-06-13 13:55 | NUR ---
JOSE LUIS met with pt to make a phone call with her [place] case manager specialist, America Ramosnoemí. Pt upon arrival was mumbling and having conversation with herself. On the phone with America, pt informed all parties that she is having a really hard time. She's in her head, hearing demeaning voices. "when the music plays, it's not too bad but there's just so much and how do I make it stop. When is this going to stop". Pt then ran her hands through her fingers and lightly tapped her forehead. Pt asked America to call a couple people and make sure someone is checking her mail. Pt then reports that she does not remember anything about going into surgery. She knows that she had the surgery based off the scar on her chest and she remembers an apple pie being delivered to her room. Pt then told America that she thinks that while she was at [facility], she sold her car. "One of the staff there helped me do it on the phone. At least, I think I sold my car. Did he take advantage of me? Isn't that illegal". America explained to pt that her car is at her home and reminded pt that America drove her to her procedure. Pt states that she understood and then repeated 3x "Okay America Perez, thank you and bye America Perez". Pt was repetitive in speech and made random word associations into sentence; for example, pt looked at SW name jena and stated "[place], [facility], [employer] in the House", "House is where I want to be". Pt talked about her cat and wanted to remind SW that she needs to call the vet to increase the days she boards her cat. Pt informed SW that she had a nightmare and became very tearful stating she had a dream that she was in [place] and there was a woman who had been drinking and pt became irritated with her. She was trying to help her and in the process "killed her" by poisoning her last drink. Pt began bawling and said "that didn't happen did it. I didn't kill anyone". SW assured pt that she has not killed anyone since being here and pt understood. Pt reports breaking her CPAP machine that night (which SW will have to confirm). Pt continued to make weird word associations and thanked JOSE LUIS for helping her make the call to her [facility] case manager specialist. JOSE LUIS will plan to follow up with pt family after treatment team tomorrow.
[2020-06-13 16:09] VITALS: BP 153/65
[2020-06-13] MEDS: FUROSEMIDE 20 MG TABLET PO SCH (16:48)
[2020-06-13] MEDS: MELATONIN 3 MG TABLET PO SCH (20:32)
[2020-06-13] MEDS: ATORVASTATIN CALCIUM 20 MG TABLET PO SCH (20:33)
[2020-06-13] MEDS: rOPINIRole 0.5 MG TABLET. PO SCH (20:33)
[2020-06-13] MEDS: clonazePAM 0.5 MG TABLET PO PRN (22:28)
--- NOTE | 2020-06-13 22:42 | PN ---
DATE: 06/13/2020 SUBJECTIVE: Staff reports some behavior problems, continue to hear voices, which are derogatory in nature. The patient also complains of annoying sounds in her left ear and she was diagnosed with tinnitus and she is having the problems since 1976 after she had an ear infection. The patient is not complaining about pain today. OBJECTIVE: VITAL SIGNS: Temperature 97.9, blood pressure 165/76, pulse 60, respirations 20, O2 sat 96%. GENERAL: Slept about 6 hours last night. The patient's appetite is fair. The patient is still irritable and traylor at times. MEDICATIONS: The patient's current medications include Abilify 15 mg daily, Seroquel 300 mg daily, Prozac 80 mg daily, Seroquel 600 mg at night, melatonin 3 mg at night. The patient is also on Klonopin 0.5 mg b.i.d. p.r.n. The patient is not having any side effects. LABORATORY DATA: The patient's lab reviewed. ASSESSMENT: Schizoaffective disorder, depressed with psychotic features. PLAN: To continue with the treatment. LENGTH OF STAY: 7 days. FIDEL NICKERSON MD DR: MIKY/radha JOB#: [id number] / [id number]
--- NOTE | 2020-06-14 03:07 | NUR ---
Last evening pt was in the hallway talking to herself. She seemed suspicious of staff and said she didn't need or want any help. At one time she said " my brother wont even talk to me" when asked when that occurred she said she heard him on the phone faustino. There have radha no phone calls regarding Solange harmon. When going to bed she seemed to be getting more anxious PRN clonazepam and tylenol was given. Shortly after PRN were give she went to bed and has been sleeping.
[2020-06-14] MEDS: LEVOTHYROXINE 50 MCG TABLET PO SCH (04:33)
[2020-06-14 05:46] VITALS: BP 138/84
[2020-06-14] MEDS: SALSALATE 500 MG PO SCH ×2 (07:39→20:31)
[2020-06-14] MEDS: ASPIRIN ENTERIC COATED 81 MG TABLET.DR. PO SCH (07:39)
[2020-06-14] MEDS: QUEtiapine 100 MG TABLET. PO SCH ×2 (07:39→20:29)
[2020-06-14] MEDS: ARIPiprazole 15 MG TABLET PO SCH (07:39)
[2020-06-14] MEDS: CALCIUM CARB/VIT D3 500/200 TABLET PO SCH ×2 (07:40→20:29)
[2020-06-14] MEDS: hydrOXYzine HCL 25 MG TABLET PO SCH ×3 (07:40→20:30)
[2020-06-14] MEDS: DOCUSATE SODIUM 100 MG CAPSULE PO SCH ×2 (07:40→20:30)
[2020-06-14] MEDS: FLUoxetine HCL 20 MG CAPSULE PO SCH (07:40)
[2020-06-14] MEDS: SENNOSIDES 8.6 MG TABLET PO SCH ×2 (07:41→20:30)
[2020-06-14] MEDS: ISOSORBIDE MONONITRATE ER 30 MG TAB.ER.24H PO SCH (07:41)
[2020-06-14] MEDS: amLODIPine BESYLATE 5 MG TABLET PO SCH (07:41)
[2020-06-14] MEDS: POTASSIUM CHLORIDE 10 MEQ TABLET.ER. PO SCH ×3 (07:42→20:29)
[2020-06-14] MEDS: PANTOPRAZOLE 40 MG TABLET. PO SCH (07:42)
[2020-06-14] MEDS: METOPROLOL TART IMMED RELEASE 25 MG TABLET. PO SCH ×2 (07:43→20:30)
[2020-06-14] MEDS: NON FORMULARY ITEM (Olodaterol HCl (Striverdi Respimat) 4 GM) IH SCH (08:00)
[2020-06-14] MEDS: LIRAGLUTIDE 1.8 MG SQ SCH (08:00)
[2020-06-14] MEDS: MINERAL OIL/PETROLATUM TOPICAL CREAM 113GM JAR. TP SCH ×2 (09:00→21:00)
[2020-06-14] MEDS: DICLOFENAC SODIUM 1% TOPICAL GEL 100GM TUBE. TP SCH ×4 (09:00→22:11)
--- NOTE | 2020-06-14 10:56 | NUR ---
WEEKLY ACTIVITY THERAPY NOTE Date of Admission: 06/07/20 Date of AT Assessment: 06/08 Precipitating behaviors that initiated intake and admission: paranoia, aud hallucinations, hitting herself in the head, and making statement "I want to end this" Goal aimed: increase stress management and relaxation skills Initial Goal:Pt will participate in at least three individual or group Activity Therapy sessions per week. Weekly progress towards goal: exceeded, 08/09 Group participation level: 3 min, 1 mod, 2 full Weekly highlights: Easter baskets Thursday, Name 5 Thursday, egg toss Thursday Behaviors observed: 1:1: SI statements Thursday-not redirectable, belitting self during groups on multiple occasions Plan: repeat goal Beneficial adaptations:
--- NOTE | 2020-06-14 11:30 | NUR ---
Treatment team note: Pt is eating roughly 75-100% of meals. Pt has been noted to be somewhat attention seeking and makes a lot of low self-esteem statements such as being an "educated idiot" or "worthless". It appears that pt loves music and is noted to be continuously talking whether someone is next to her or not. Pt does attend most groups with moderate to full participation. At this moment pt placement is unknown; although pt would prefer to discharge back home if possible.
--- NOTE | 2020-06-14 13:01 | NUR ---
PATIENT LOCATED IN A HALLWAY UP IN A W/C UPON ASSESSMENT. CALM AT FIST AND COOPERATIVE, COMPLIANT WITH MEDS, BECAME MORE ANXIOUS LATER AFTER BREAKFAST, STATED " I AM INVISIBLE TO OTHERS" ASKING ABOUT OTHER PEOPLE PRESENT IN A DAY ROOM IF THEY ARE REAL, TALKING TO HERSELF, IRRITABLE WHEN APPROACHED TO ASSIST, AFTER APOLOGIZING FOR BEING RUDE.
[2020-06-14] MEDS: FUROSEMIDE 20 MG TABLET PO SCH (15:27)
--- NOTE | 2020-06-14 15:57 | TX PLAN ---
Interdisciplinary Tx Plan Admission Information Jun 07, 2020 at 15:55 Legal Status (on Admission): Voluntary DPOA/Guardian Name: Felix Moscoso Contact Other Contact Name: Emigdio Cantrell Other Contact Verified Code Status: Full Code Allergies: Coded Allergies: chlorpromazine (Verified Allergy, Unknown, 06/07/20) diphenhydramine (Verified Allergy, Unknown, 06/07/20) lisinopril (Verified Allergy, Unknown, 06/07/20) simvastatin (Verified Allergy, Unknown, 06/07/20) Diagnoses Primary Diagnosis: Schizoaffective D/O, Reasons for Admission: Anxiety/Panic, Hallucinations, Suicidal ideation Problem in Patient's Words: Did someone tell her about her cancer? She doesn't really know much about her cancer. It's her fear and we haven't told her much. Additional Admission Comments: According to the intake, pt was hitting herself in the head with her cane, paranoid, auditory hallucinations, anxious, made statements "i want to end this" Problems Active Problems: Auditory hallucinations anxious SI statement hyperverbal Inactive Problems: medication management Pt Strengths/Limitations Ability for [place]: Poor Cognitive Functioning/Ability: Fair Communication Skills/Ability: Fair Financial Resources: Fair Insight/Judgement: Poor Intellectual Ability: Fair Physical Health: Poor Social Skills: Fair Stability in Family: Fair Stability in School/Work: Poor Verbal Skills: Fair Discharge Criteria Discharge Criteria: Able meet basic life need, No need for close observ., Adequate arrangements @DC, Verbal commit aftercare, Adequate self-care, Improved behavior, Improved mood/thought Preliminary Discharge Plan Preliminary DC Plan: Other Special Precautions Fall Risk: Moderate Initial D/C Plan Unknown at this time Identified Discharge Needs: May need SNF at discharge or [facility] with rehab potential Currently Utilized Resources Currently Utilized Resources/P: [facility] services (PCP, Psychiatrist, Counselor, Welding Process Specialist) Identified Problems/Hx/Goals Objectives/Short-Term Goals Short Term Goals: Dec. Anxiety/Panic, Dec. Hallucination/Delus, Dec. Symp. Depression, Medication Stabilization, Promote Coping Skill Short Term Goals in Patient's: NA Interventions/Frequency Staff Interventions/Frequency&: Psychiatrist to assess pt at least 3x per week for medication management. Social Work to assess pt at least 2x per week to identify barriers to care and discharge planning goals. Nursing to asess medication effects, behavior modification and completion of 15 minute checks daily. Encourage participation in group activities (if applicable) or 1:1 engagement based off activity dept goals. History Vocational History: Pt has not been able to fully work due to her psychiatric hx and having "breakdowns". 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 Community Follow-up Con't [facility] services. Treatment Plan Explained Patient/Room Inspector had this treatment plan explained to him/her as indicated by the signature below and has been given the opportunity to ask questions and make suggestions: Date: Patient/Room Inspector Signature: Patient/Room Inspector Decline: No (Pt family somewhat involved; lives in [place]) FROY [facility] Jun 14, 2020 15:57
--- NOTE | 2020-06-14 16:01 | TX PLAN ---
Interdisciplinary Tx Plan Admission Information Jun 07, 2020 at 15:55 Legal Status (on Admission): Voluntary DPOA/Guardian Name: Felix Moscoso Contact Other Contact Name: Emigdio Cantrell Other Contact Verified Code Status: Full Code Allergies: Coded Allergies: chlorpromazine (Verified Allergy, Unknown, 06/07/20) diphenhydramine (Verified Allergy, Unknown, 06/07/20) lisinopril (Verified Allergy, Unknown, 06/07/20) simvastatin (Verified Allergy, Unknown, 06/07/20) Diagnoses Primary Diagnosis: Schizoaffective D/O, Reasons for Admission: Anxiety/Panic, Hallucinations, Suicidal ideation Problem in Patient's Words: Did someone tell her about her cancer? She doesn't really know much about her cancer. It's her fear and we haven't told her much. Additional Admission Comments: According to the intake, pt was hitting herself in the head with her cane, paranoid, auditory hallucinations, anxious, made statements "i want to end this" Problems Active Problems: Auditory hallucinations anxious SI statement hyperverbal Inactive Problems: medication management Pt Strengths/Limitations Ability for [place]: Poor Cognitive Functioning/Ability: Fair Communication Skills/Ability: Fair Financial Resources: Fair Insight/Judgement: Poor Intellectual Ability: Fair Physical Health: Poor Social Skills: Fair Stability in Family: Fair Stability in School/Work: Poor Verbal Skills: Fair Discharge Criteria Discharge Criteria: Able meet basic life need, No need for close observ., Adequate arrangements @DC, Verbal commit aftercare, Adequate self-care, Improved behavior, Improved mood/thought Preliminary Discharge Plan Preliminary DC Plan: Other Special Precautions Fall Risk: Moderate Initial D/C Plan Unknown at this time Identified Discharge Needs: May need SNF at discharge or [facility] with rehab potential Currently Utilized Resources Currently Utilized Resources/P: [facility] services (PCP, Psychiatrist, Counselor, [employer] Terminal Gauger) Identified Problems/Hx/Goals Objectives/Short-Term Goals Short Term Goals: Dec. Anxiety/Panic, Dec. Hallucination/Delus, Dec. Symp. Depression, Medication Stabilization, Promote Coping Skill Short Term Goals in Patient's: NA Interventions/Frequency Staff Interventions/Frequency&: Psychiatrist to assess pt at least 3x per week for medication management. Social Work to assess pt at least 2x per week to identify barriers to care and discharge planning goals. Nursing to asess medication effects, behavior modification and completion of 15 minute checks daily. Encourage participation in group activities (if applicable) or 1:1 engagement based off activity dept goals. History Vocational History: Pt has not been able to fully work due to her psychiatric hx and having "breakdowns". 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 Community Follow-up Con't [facility] services. 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 It appears that pt loves music and is noted to be continuously talking whether someone is next to her or not. At this moment pt placement is unknown; although pt would prefer to discharge back home if possible. FROY KAISER Jun 14, 2020 16:00
[2020-06-14 16:31] VITALS: BP 164/82
[2020-06-14] MEDS: MELATONIN 3 MG TABLET PO SCH (20:29)
[2020-06-14] MEDS: ATORVASTATIN CALCIUM 20 MG TABLET PO SCH (20:29)
[2020-06-14] MEDS: rOPINIRole 0.5 MG TABLET. PO SCH (20:29)
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
[2020-06-14] MEDS: clonazePAM 0.5 MG TABLET PO PRN (22:40)
--- NOTE | 2020-06-15 04:09 | NUR ---
Nursing Note The patient was anxious, restless and compliant this shift. The patient was very anxious about being a patient here at this facility. the patient made multiple statements stating that she is a burden to staff and other patients. The patient was compliant with her medications and took them whole. The patient requested PRN Klonopin for anxiety and was given PRN Klonopin per PRN order @. the patient was able to calm down and eventually was able to sleep after taking PRN medication. While awake the patient made numerous statements about thoughts to hit her head with her hands or against the windows "to get back at the aides." the patient did not act on these statements. Once the patients C-pap machine was set up she was able to sleep for the remainder of the shift.
[2020-06-15] MEDS: LEVOTHYROXINE 50 MCG TABLET PO SCH (06:01)
[2020-06-15 06:20] VITALS: BP 133/73
[2020-06-15] MEDS: FLUoxetine HCL 20 MG CAPSULE PO SCH (07:49)
[2020-06-15] MEDS: QUEtiapine 100 MG TABLET. PO SCH ×2 (07:50→20:34)
[2020-06-15] MEDS: DOCUSATE SODIUM 100 MG CAPSULE PO SCH ×2 (07:50→20:34)
[2020-06-15] MEDS: SALSALATE 500 MG PO SCH ×2 (07:50→21:00)
[2020-06-15] MEDS: hydrOXYzine HCL 25 MG TABLET PO SCH ×3 (07:51→20:34)
[2020-06-15] MEDS: ASPIRIN ENTERIC COATED 81 MG TABLET.DR. PO SCH (07:51)
[2020-06-15] MEDS: ISOSORBIDE MONONITRATE ER 30 MG TAB.ER.24H PO SCH (07:51)
[2020-06-15] MEDS: SENNOSIDES 8.6 MG TABLET PO SCH ×2 (07:51→20:35)
[2020-06-15] MEDS: POTASSIUM CHLORIDE 10 MEQ TABLET.ER. PO SCH ×3 (07:52→20:33)
[2020-06-15] MEDS: amLODIPine BESYLATE 5 MG TABLET PO SCH (07:52)
[2020-06-15] MEDS: CALCIUM CARB/VIT D3 500/200 TABLET PO SCH ×2 (07:52→20:34)
[2020-06-15] MEDS: ARIPiprazole 15 MG TABLET PO SCH (07:53)
[2020-06-15] MEDS: METOPROLOL TART IMMED RELEASE 25 MG TABLET. PO SCH ×2 (07:53→20:33)
[2020-06-15] MEDS: NON FORMULARY ITEM (Olodaterol HCl (Striverdi Respimat) 4 GM) IH SCH (08:00)
[2020-06-15] MEDS: LIRAGLUTIDE 1.8 MG SQ SCH (08:00)
[2020-06-15] MEDS: PANTOPRAZOLE 40 MG TABLET. PO SCH (08:00)
[2020-06-15] MEDS: MINERAL OIL/PETROLATUM TOPICAL CREAM 113GM JAR. TP SCH ×2 (09:00→21:00)
[2020-06-15] MEDS: DICLOFENAC SODIUM 1% TOPICAL GEL 100GM TUBE. TP SCH (09:00)
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
[2020-06-15] MEDS ORDERED: DICLOFENAC SODIUM 1% TOPICAL GEL 100GM TUBE. TP PRN (12:00)
[2020-06-15] MEDS: FUROSEMIDE 20 MG TABLET PO SCH (13:28)
[2020-06-15] MEDS: clonazePAM 0.5 MG TABLET PO PRN (13:28)
--- NOTE | 2020-06-15 14:53 | NUR ---
PATIENT LOCATED IN A DAY ROOM UP IN A W/C UPON ASSESSMENT, COMPLIANT WITH MEDICATIONS, INTERACTIVE. PATIENT WAS ENCOURAGED TO USE A WALKER BY PT. PATIENT AMBULATED HERSELF WITH A WALKER BEFORE LUNCH , BECAME SOA, THIS RN ALLOWED PATIENT TO USE A W/C TO PROPEL HERSELF TO THE DINING ROOM. PATIENT CURRENTLY LOCATED IN A DAY ROOM LISTENING TO THE MUSIC AND SINGING.
[2020-06-15 16:12] VITALS: BP 160/76
[2020-06-15] MEDS: ATORVASTATIN CALCIUM 20 MG TABLET PO SCH (20:33)
[2020-06-15] MEDS: rOPINIRole 0.5 MG TABLET. PO SCH (20:33)
[2020-06-15] MEDS: ACETAMINOPHEN 325 MG TABLET PO PRN (20:34)
[2020-06-15] MEDS: MELATONIN 3 MG TABLET PO SCH (20:34)
--- NOTE | 2020-06-15 22:29 | PN ---
DATE: 06/15/2020 SUBJECTIVE: The patient was seen today, met with the staff, chart reviewed. Staff reports some improvement, still labile, rude and irritable. The patient still has periods of depression. OBSERVATION: VITAL SIGNS: Temperature 98.6, blood pressure 133/73, pulse 63, respirations 18, O2 sat 94%. GENERAL: Slept about 4 hours last night. CURRENT MEDICATIONS: The patient's current medications include Abilify 15 mg daily, Seroquel 300 mg daily, Prozac 80 mg daily, Seroquel 600 mg at night and melatonin 3 mg at night. She is also on Klonopin 0.5 mg twice a day p.r.n. for anxiety and agitation. The patient denies of any side effects. LABORATORY DATA: Reviewed. ASSESSMENT: Schizoaffective disorder, depressed with psychotic features. PLAN: To continue with the treatment. LENGTH OF STAY: 5-7 days. FIDEL NICKERSON MD DR: MIKY/radha JOB#: [id number] / [id number]
[2020-06-16] MEDS: LEVOTHYROXINE 50 MCG TABLET PO SCH (05:17)
--- NOTE | 2020-06-16 05:18 | NUR ---
Pt preoccupied with calling family most of the evening; though no one answered her calls. Later the daughter called back, but the pt was asleep. Pt slept soundly for about three hours, then wandered around the floor, in her room and in the halls. Will continue to monitor.
[2020-06-16 06:38] VITALS: BP 116/74
[2020-06-16] MEDS: NON FORMULARY ITEM (Olodaterol HCl (Striverdi Respimat) 4 GM) IH SCH (08:00)
[2020-06-16] MEDS: LIRAGLUTIDE 1.8 MG SQ SCH (08:00)
[2020-06-16] MEDS: hydrOXYzine HCL 25 MG TABLET PO SCH ×3 (08:22→20:55)
[2020-06-16] MEDS: SENNOSIDES 8.6 MG TABLET PO SCH ×2 (08:22→20:55)
[2020-06-16] MEDS: ARIPiprazole 15 MG TABLET PO SCH (08:23)
[2020-06-16] MEDS: amLODIPine BESYLATE 5 MG TABLET PO SCH (08:23)
[2020-06-16] MEDS: METOPROLOL TART IMMED RELEASE 25 MG TABLET. PO SCH ×2 (08:24→20:55)
[2020-06-16] MEDS: QUEtiapine 100 MG TABLET. PO SCH ×2 (08:24→20:55)
[2020-06-16] MEDS: POTASSIUM CHLORIDE 10 MEQ TABLET.ER. PO SCH ×3 (08:24→20:55)
[2020-06-16] MEDS: CALCIUM CARB/VIT D3 500/200 TABLET PO SCH ×2 (08:25→20:55)
[2020-06-16] MEDS: FLUoxetine HCL 20 MG CAPSULE PO SCH (08:25)
[2020-06-16] MEDS: PANTOPRAZOLE 40 MG TABLET. PO SCH (08:25)
[2020-06-16] MEDS: ASPIRIN ENTERIC COATED 81 MG TABLET.DR. PO SCH (08:25)
[2020-06-16] MEDS: ISOSORBIDE MONONITRATE ER 30 MG TAB.ER.24H PO SCH (08:25)
[2020-06-16] MEDS: SALSALATE 500 MG PO SCH ×2 (08:26→20:57)
[2020-06-16] MEDS: MINERAL OIL/PETROLATUM TOPICAL CREAM 113GM JAR. TP SCH ×2 (08:27→21:00)
[2020-06-16] MEDS: DOCUSATE SODIUM 100 MG CAPSULE PO SCH ×2 (08:27→20:56)
[2020-06-16 11:16] LABS: BASO % 1 % (0-3); EOS # 0.3 x10^3/uL (0.0-0.7); EOS % 4 % (0-3); HEMATOCRIT 34.4 % (36.0-47.0); HEMOGLOBIN 11.2 g/dL (12.0-15.5); LYMPH # 0.9 x10^3/uL (1.0-4.8); LYMPH % 11 % (24-48); MEAN CORPUSCULAR HEMOGLOBIN 27 pg (25-35); MEAN CORPUSCULAR HGB CONC 33 g/dL (31-37); MEAN CORPUSCULAR VOLUME 83 fL (79-100); MONO # 0.5 x10^3/uL (0.0-1.1); MONO % 7 % (0-9); NEUT # 6.1 x10^3uL (1.8-7.7); NEUT % 78 % (31-73); PLATELET COUNT 345 x10^3/uL (140-400); RED BLOOD COUNT 4.14 x10^6/uL (3.50-5.40); RED CELL DISTRIBUTION WIDTH 16.3 % (11.5-14.5); WHITE BLOOD COUNT 7.9 x10^3/uL (4.0-11.0)
[2020-06-16 11:28] LABS: ALBUMIN 3.1 g/dL (3.4-5.0); ALBUMIN/GLOBULIN RATIO 0.8 (1.0-1.7); CALCIUM 9.6 mg/dL (8.5-10.1); CREATININE 0.8 mg/dL (0.6-1.0); GFR 71.8; POTASSIUM 4.5 mmol/L (3.5-5.1); TOTAL BILIRUBIN 0.3 mg/dL (0.2-1.0)
[2020-06-16] MEDS: clonazePAM 0.5 MG TABLET PO PRN ×2 (12:24→17:50)
[2020-06-16 15:37] VITALS: BP 149/73
--- NOTE | 2020-06-16 16:37 | NUR ---
Shift Summary Patient was medication compliant today. Pt was anxious/upset majority of day due to not being able to go home, and unable to recall all medications she was taking.
[2020-06-16] MEDS: FUROSEMIDE 20 MG TABLET PO SCH (16:56)
[2020-06-16] MEDS: rOPINIRole 0.5 MG TABLET. PO SCH (20:54)
[2020-06-16] MEDS: ATORVASTATIN CALCIUM 20 MG TABLET PO SCH (20:55)
[2020-06-16] MEDS: MELATONIN 3 MG TABLET PO SCH (20:55)
--- NOTE | 2020-06-16 23:42 | NUR ---
Nursing Note The patient was labile at times but was generally pleasant although disorganized in thoughts. The patient was heard cursing at this nurse while she was sitting outside of the nurses station. When questioned about this the patient apologized and stated that it was due to day shift staff not listening to her "they just tell me to deal with it and then they just ignore me." Once this nurse had allowed the patient time to discuss her concerns the patient was pleasant and cooperative. The patient took her medication whole. The patient was alert to self, date and location.
[2020-06-17] MEDS: LEVOTHYROXINE 50 MCG TABLET PO SCH (05:25)
[2020-06-17 06:32] VITALS: BP 138/74
[2020-06-17] MEDS: NON FORMULARY ITEM (Olodaterol HCl (Striverdi Respimat) 4 GM) IH SCH (07:30)
[2020-06-17] MEDS: LIRAGLUTIDE 1.8 MG SQ SCH (07:32)
[2020-06-17] MEDS: MINERAL OIL/PETROLATUM TOPICAL CREAM 113GM JAR. TP SCH ×2 (07:33→19:49)
[2020-06-17] MEDS: DOCUSATE SODIUM 100 MG CAPSULE PO SCH ×2 (08:13→19:25)
[2020-06-17] MEDS: FLUoxetine HCL 20 MG CAPSULE PO SCH (08:13)
[2020-06-17] MEDS: SENNOSIDES 8.6 MG TABLET PO SCH ×2 (08:14→19:26)
[2020-06-17] MEDS: POTASSIUM CHLORIDE 10 MEQ TABLET.ER. PO SCH ×3 (08:14→19:24)
[2020-06-17] MEDS: SALSALATE 500 MG PO SCH ×2 (08:15→19:49)
[2020-06-17] MEDS: CALCIUM CARB/VIT D3 500/200 TABLET PO SCH ×2 (08:15→19:24)
[2020-06-17] MEDS: METOPROLOL TART IMMED RELEASE 25 MG TABLET. PO SCH ×2 (08:15→19:24)
[2020-06-17] MEDS: ARIPiprazole 15 MG TABLET PO SCH (08:15)
[2020-06-17] MEDS: QUEtiapine 100 MG TABLET. PO SCH ×2 (08:15→19:23)
[2020-06-17] MEDS: PANTOPRAZOLE 40 MG TABLET. PO SCH (08:16)
[2020-06-17] MEDS: amLODIPine BESYLATE 5 MG TABLET PO SCH (08:16)
[2020-06-17] MEDS: ISOSORBIDE MONONITRATE ER 30 MG TAB.ER.24H PO SCH (08:16)
[2020-06-17] MEDS: ASPIRIN ENTERIC COATED 81 MG TABLET.DR. PO SCH (08:16)
[2020-06-17] MEDS: hydrOXYzine HCL 25 MG TABLET PO SCH ×3 (08:16→19:25)
--- NOTE | 2020-06-17 09:21 | NUR ---
Patient appears calmer and less anxious today. Patient is compliant with medication and assessment.
[2020-06-17 15:49] VITALS: BP 117/62
[2020-06-17] MEDS: FUROSEMIDE 20 MG TABLET PO SCH (17:20)
[2020-06-17] MEDS: ATORVASTATIN CALCIUM 20 MG TABLET PO SCH (19:23)
[2020-06-17] MEDS: rOPINIRole 0.5 MG TABLET. PO SCH (19:23)
[2020-06-17] MEDS: MELATONIN 3 MG TABLET PO SCH (19:26)
[2020-06-17] MEDS: DIVALPROEX ER 500 MG TAB.ER.24H PO SCH (19:48)
--- NOTE | 2020-06-17 22:11 | PDOC ---
Exam Note: [place] Note: Late entry for 06/16/2020. Please also refer to the separate dictated note~for this date of service dictated separately.~Patient seen individually. Discussed the patient with Nursing staff reviewed the chart.~Reviewed interim history and current functioning. Reviewed vital signs,~Labs/ Radiology~and current medic ations noted below. Continue current treatment with the changes noted in the dictated addendum note Assessment: Vital Signs/I&O: Vital Signs Date Time Temp Pulse Resp B/P (MAP) Pulse Ox O2 Delivery O2 Flow Rate FiO2 06/17/20 19:24 78 117/62 06/17/20 15:49 98.0 17 94 06/17/20 06:32 Room Air I & O 06/16/20 06/16/20 06/17/20 15:00 23:00 07:00 Intake Total 720 ml 480 ml Balance 720 ml 480 ml Current Medications: Meds: Current Medications Medications (Trade) Dose Ordered Sig/Indra Route PRN Reason Start Time Stop Time Status Last Admin Dose Admin Acetaminophen (Tylenol) 650 mg PRN Q6HRS PRN PO MILD PAIN / TEMP > 100.3'F 06/07/20 16:30 06/15/20 20:34 Multi-Ingredient Ointment (Analgesic [place]) 1 joesph PRN QID PRN TP MUSCLE PAIN 06/07/20 16:30 Al Hydroxide/Mg Hydroxide (Mylanta Plus Xs) 15 ml PRN AFTMEALHC PRN PO DYSPEPSIA 06/07/20 16:30 Magnesium Hydroxide (Milk Of Magnesia) 2,400 mg PRN QHS PRN PO CONSTIPATION 2nd choice 06/07/20 16:30 Acetaminophen (Tylenol) 500 mg PRN Q6HRS PRN PO pain or fever 06/07/20 16:30 06/07/20 17:22 DC Albuterol Sulfate (Ventolin) 205 mg PRN Q4HRS PRN IH FOR ASTHMA 06/07/20 16:30 06/07/20 18:21 DC Amlodipine Besylate (Norvasc) 5 mg DAILY PO 06/08/20 09:00 06/17/20 08:16 Aripiprazole (Abilify) 15 mg DAILY PO 06/08/20 09:00 06/17/20 08:15 Aspirin (Aspirin Enteric Coated) 81 mg DAILY PO 06/08/20 09:00 06/17/20 08:16 Atorvastatin Calcium (Lipitor) 20 mg QHS PO 06/07/20 21:00 06/17/20 19:23 Calcium/Vitamin D (Oscal D 500mg/ 200uts) 1 tab BID PO 06/07/20 21:00 06/17/20 19:24 Clonazepam (KlonoPIN) 0.5 mg PRN BID PRN PO ANXIETY / AGITATION 06/07/20 16:30 06/16/20 17:50 Diclofenac Sodium (Voltaren) 2 joesph QID TP 06/07/20 17:00 06/15/20 11:53 DC 06/14/20 22:11 Docusate Sodium (Colace) 100 mg BID PO 06/07/20 21:00 06/17/20 19:25 Furosemide (Lasix) 20 mg DAILY16 PO 06/08/20 16:00 06/17/20 17:20 Hydroxyzine HCl (Atarax) 25 mg TID PO 06/07/20 21:00 06/17/20 19:25 Isosorbide Mononitrate (Imdur) 30 mg DAILY08 PO 06/08/20 08:00 06/17/20 08:16 Ketoconazole (Nizoral 2% Shampoo) 1 joesph PRN DAILY PRN TP itching on scalp 06/07/20 16:30 Levothyroxine Sodium (Synthroid) 50 mcg DAILY06 PO 06/08/20 06:00 06/17/20 05:25 Metoprolol Tartrate (Lopressor) 12.5 mg BID PO 06/07/20 21:00 06/17/20 19:24 Pantoprazole Sodium (Protonix) 40 mg DAILY08 PO 06/08/20 08:00 06/17/20 08:16 Ropinirole HCl (Requip) 0.5 mg QHS PO 06/07/20 21:00 06/17/20 19:23 Salsalate (Salsalate) 1,500 mg 0800 PO 06/08/20 08:00 06/17/20 08:15 Salsalate (Salsalate) 1,000 mg 2100 PO 06/08/20 21:00 06/17/20 19:49 Sennosides (Senna) 8.6 mg BID76 PO 06/07/20 18:00 06/10/20 05:35 DC 06/09/20 16:50 Tramadol HCl (Ultram) 50 mg PRN Q6HRS PRN PO mod-sev pain 06/07/20 16:30 06/13/20 06:30 Triamcinolone Acetonide (Kenalog) 1 joesph PRN Q12HR PRN TP itching 06/07/20 16:30 Multi-Ingred Cream/Lotion/Oil/ Oint (Hydrocerin) 1 joesph BID TP 06/07/20 21:00 06/17/20 07:33 Fluoxetine HCl (PROzac) 80 mg DAILY08 PO 06/08/20 08:00 06/17/20 08:13 Non-Formulary Medication (Liraglutide (Saxenda)) 1.8 mg 0800 SQ 06/08/20 08:00 UNV Melatonin (Melatonin) 3 mg QHS PO 06/07/20 21:00 06/17/20 19:26 Non-Formulary Medication (Olodaterol HCl (Striverdi Respimat)) 4 gm DAILY08 IH 06/08/20 08:00 UNV Potassium Chloride (Klor-Con) 10 meq TID PO 06/07/20 21:00 06/17/20 19:24 Quetiapine Fumarate (SEROquel) 300 mg DAILY08 PO 06/08/20 08:00 06/17/20 08:15 Quetiapine Fumarate (SEROquel) 600 mg QHS PO 06/07/20 21:00 06/17/20 19:23 Vitamin A/Vitamin D (Vitamin A & D Ointment) 1 joesph PRN Q1HR PRN TP SKIN PROTECTION 06/07/20 17:45 Albuterol Sulfate (Ventolin Hfa Inhaler) 1 puff PRN Q4HRS PRN INH SHORTNESS OF BREATH 06/07/20 18:30 Sennosides (Senna) 8.6 mg BID PO 06/10/20 09:00 06/17/20 19:26 Polyethylene Glycol (miraLAX) 17 gm PRN DAILY PRN PO CONSTIPATION 1st choice 06/11/20 11:00 Diclofenac Sodium (Voltaren) 2 joesph PRN QID PRN TP PAIN 06/15/20 12:00 Divalproex Sodium (Depakote Er) 500 mg QHS PO 06/17/20 21:00 4/11/21 19:48 Current Medications Medications (Trade) Dose Ordered Sig/Indra Route PRN Reason Start Time Stop Time Status Last Admin Dose Admin Divalproex Sodium (Depakote Er) 500 mg QHS PO 06/17/20 21:00 06/17/20 19:48 I have reviewed the current psychotropics carefully including drug interactions. Risk benefit ratio favors no change other than as noted in my dictated progress note. Diagnosis: Problems: (1) Schizoaffective disorder (2) Depression MICHAEL CLARK MD Jun 17, 2020 22:11
--- NOTE | 2020-06-17 23:18 | NUR ---
Nursing Note Pt seems to have racing thoughts, is hyperverbal, anxious states she hears constant ringing in her ears and it is loud and will not stop. Pt med compliant. Right lung base has crackles, wheezes scattered throughout, chest xray called to Dr. Lowe he will assess her tomorrow. VSS sats ok, labs WNL but pt recently had partial lobectomy prior to admit. Pt states she is cancer free now and it is not in her brain per the MRI at the other hospital. Resting now seems to be comfortable.
[2020-06-18] MEDS: clonazePAM 0.5 MG TABLET PO PRN ×2 (00:12→14:29)
[2020-06-18] MEDS: traMADol 50 MG TABLET PO PRN ×3 (00:12→23:54)
--- NOTE | 2020-06-18 00:15 | NUR ---
Nursing Note Pt awakens short of breath and anxious, ultram and clonazepam given PRN. Pt states she is hallucinating seeing flashing lights outside her window but then states its probably her mind mixing things up.
[2020-06-18] MEDS: LEVOTHYROXINE 50 MCG TABLET PO SCH (04:19)
[2020-06-18 06:14] VITALS: BP 124/69
--- NOTE | 2020-06-18 07:22 | PDOC ---
Exam Note: [place] Note: This note is a late entry for 06/16/2020 covers elements not covered in my initial note. Subjective: Dr. Cox had covered for me from 02 June till June, and I assumed care of the patients from 16 June. I have reviewed information and interim progress notes at some length with Dr. Cox. The patient was seen individually in the evening of 06/16/2020 with Juan WOMACK, discussed and reviewed the chart. The patient just slept 4-1/4 hours previous night. Overall the patient has had a good day. At time she refuses some of her psychotropics. I reviewed history with her at length. She stated she lives in an apartment. She has no children. She is a non-smoker. No alcohol history. She used to be a past smoker and stopped in 2018. She does have a history of lung cancer. Review of Systems: Ambulation impaired in wheelchair. No CV, , pulmonary, eye system symptoms on review. Mental Status Exam: The patient is oriented to herself and situation. Speech coherent. Abstraction fair. Computation impaired. Language function intact. Attention span short. Mood and affect remains anxious, labile. Laboratory Data: Reviewed. Impression: Schizoaffective disorder, bipolar type, depressed with psychotic features. Anxiety disorder unspecified. Impulse control disorder unspecified. Plan: I have carefully reviewed the current psychotropics and drug interactions. Continue Abilify 15 mg a day, Klonopin p.r.n., Prozac 40 mg a day, Seroquel 300 mg a.m., 600 mg h.s., ReQuip 0.5 mg h.s. We will make further adjustments as clinically indicated and will consider adding Depakote as a mood stabilizer depending on her progress. Assessment: Vital Signs/I&O: Vital Signs Date Time Temp Pulse Resp B/P (MAP) Pulse Ox O2 Delivery O2 Flow Rate FiO2 06/18/20 06:14 97.8 62 20 124/69 (87) 94 06/17/20 06:32 Room Air I & O 06/17/20 06/17/20 06/18/20 15:00 23:00 07:00 Intake Total 540 ml 480 ml Balance 540 ml 480 ml Current Medications: Meds: Current Medications Medications (Trade) Dose Ordered Sig/Indra Route PRN Reason Start Time Stop Time Status Last Admin Dose Admin Acetaminophen (Tylenol) 650 mg PRN Q6HRS PRN PO MILD PAIN / TEMP > 100.3'F 06/07/20 16:30 06/15/20 20:34 Multi-Ingredient Ointment (Analgesic [place]) 1 joesph PRN QID PRN TP MUSCLE PAIN 06/07/20 16:30 Al Hydroxide/Mg Hydroxide (Mylanta Plus Xs) 15 ml PRN AFTMEALHC PRN PO DYSPEPSIA 06/07/20 16:30 Magnesium Hydroxide (Milk Of Magnesia) 2,400 mg PRN QHS PRN PO CONSTIPATION 2nd choice 06/07/20 16:30 Acetaminophen (Tylenol) 500 mg PRN Q6HRS PRN PO pain or fever 06/07/20 16:30 06/07/20 17:22 DC Albuterol Sulfate (Ventolin) 205 mg PRN Q4HRS PRN IH FOR ASTHMA 06/07/20 16:30 06/07/20 18:21 DC Amlodipine Besylate (Norvasc) 5 mg DAILY PO 06/08/20 09:00 06/17/20 08:16 Aripiprazole (Abilify) 15 mg DAILY PO 06/08/20 09:00 06/17/20 08:15 Aspirin (Aspirin Enteric Coated) 81 mg DAILY PO 06/08/20 09:00 06/17/20 08:16 Atorvastatin Calcium (Lipitor) 20 mg QHS PO 06/07/20 21:00 06/17/20 19:23 Calcium/Vitamin D (Oscal D 500mg/ 200uts) 1 tab BID PO 06/07/20 21:00 06/17/20 19:24 Clonazepam (KlonoPIN) 0.5 mg PRN BID PRN PO ANXIETY / AGITATION 06/07/20 16:30 06/18/20 00:12 Diclofenac Sodium (Voltaren) 2 joesph QID TP 06/07/20 17:00 06/15/20 11:53 DC 06/14/20 22:11 Docusate Sodium (Colace) 100 mg BID PO 06/07/20 21:00 06/17/20 19:25 Furosemide (Lasix) 20 mg DAILY16 PO 06/08/20 16:00 06/17/20 17:20 Hydroxyzine HCl (Atarax) 25 mg TID PO 06/07/20 21:00 06/17/20 19:25 Isosorbide Mononitrate (Imdur) 30 mg DAILY08 PO 06/08/20 08:00 06/17/20 08:16 Ketoconazole (Nizoral 2% Shampoo) 1 joesph PRN DAILY PRN TP itching on scalp 06/07/20 16:30 Levothyroxine Sodium (Synthroid) 50 mcg DAILY06 PO 06/08/20 06:00 06/18/20 04:19 Metoprolol Tartrate (Lopressor) 12.5 mg BID PO 06/07/20 21:00 06/17/20 19:24 Pantoprazole Sodium (Protonix) 40 mg DAILY08 PO 06/08/20 08:00 06/17/20 08:16 Ropinirole HCl (Requip) 0.5 mg QHS PO 06/07/20 21:00 06/17/20 19:23 Salsalate (Salsalate) 1,500 mg 0800 PO 06/08/20 08:00 06/17/20 08:15 Salsalate (Salsalate) 1,000 mg 2100 PO 06/08/20 21:00 06/17/20 19:49 Sennosides (Senna) 8.6 mg BID76 PO 06/07/20 18:00 06/10/20 05:35 DC 06/09/20 16:50 Tramadol HCl (Ultram) 50 mg PRN Q6HRS PRN PO mod-sev pain 06/07/20 16:30 06/18/20 00:12 Triamcinolone Acetonide (Kenalog) 1 joesph PRN Q12HR PRN TP itching 06/07/20 16:30 Multi-Ingred Cream/Lotion/Oil/ Oint (Hydrocerin) 1 joesph BID TP 06/07/20 21:00 06/17/20 07:33 Fluoxetine HCl (PROzac) 80 mg DAILY08 PO 06/08/20 08:00 06/17/20 08:13 Non-Formulary Medication (Liraglutide (Saxenda)) 1.8 mg 0800 SQ 06/08/20 08:00 UNV Melatonin (Melatonin) 3 mg QHS PO 06/07/20 21:00 06/17/20 19:26 Non-Formulary Medication (Olodaterol HCl (Striverdi Respimat)) 4 gm DAILY08 IH 06/08/20 08:00 UNV Potassium Chloride (Klor-Con) 10 meq TID PO 06/07/20 21:00 06/17/20 19:24 Quetiapine Fumarate (SEROquel) 300 mg DAILY08 PO 06/08/20 08:00 06/17/20 08:15 Quetiapine Fumarate (SEROquel) 600 mg QHS PO 06/07/20 21:00 06/17/20 19:23 Vitamin A/Vitamin D (Vitamin A & D Ointment) 1 joesph PRN Q1HR PRN TP SKIN PROTECTION 06/07/20 17:45 Albuterol Sulfate (Ventolin Hfa Inhaler) 1 puff PRN Q4HRS PRN INH SHORTNESS OF BREATH 06/07/20 18:30 Sennosides (Senna) 8.6 mg BID PO 06/10/20 09:00 06/17/20 19:26 Polyethylene Glycol (miraLAX) 17 gm PRN DAILY PRN PO CONSTIPATION 1st choice 06/11/20 11:00 Diclofenac Sodium (Voltaren) 2 joesph PRN QID PRN TP PAIN 06/15/20 12:00 Divalproex Sodium (Depakote Er) 500 mg QHS PO 06/17/20 21:00 06/17/20 19:48 Current Medications Medications (Trade) Dose Ordered Sig/Indra Route PRN Reason Start Time Stop Time Status Last Admin Dose Admin Divalproex Sodium (Depakote Er) 500 mg QHS PO 06/17/20 21:00 06/17/20 19:48 I have reviewed the current psychotropics carefully including drug interactions. Risk benefit ratio favors no change other than as noted in my dictated progress note. Diagnosis: Problems: (1) Schizoaffective disorder, bipolar type (2) Bipolar disorder, current episode depressed, severe, with psychotic features (3) Anxiety disorder, unspecified (4) Impulse control disorder, unspecified MICHAEL CLARK MD Jun 18, 2020 07:22
[2020-06-18] MEDS: LIRAGLUTIDE 1.8 MG SQ SCH (08:00)
[2020-06-18] MEDS: NON FORMULARY ITEM (Olodaterol HCl (Striverdi Respimat) 4 GM) IH SCH (08:00)
--- NOTE | 2020-06-18 08:04 | PDOC ---
Exam Note: [place] Note: This note is a late entry for 06/17/2020 covers elements not covered in my initial note. Subjective: The patient was seen individually in the evening of 06/17/2020 with Chacorta WOMACK, discussed and reviewed the chart. The patient just slept 7-1/4 hours previous night. She had a good day. She has a telephone conversation with her family and rambling in her speech, difficult to understand, talking to herself, at times psychotic. She has a bruise on the right knee. She has a history of hitting herself and bruising herself, part of which prompted this admission. We will monitor this closely. Review of Systems: Ambulation impaired in wheelchair. No CV, , pulmonary, eye system symptoms on review. Mental Status Exam: The patient is oriented to herself and situation. She remains psychotic, distractible. Speech coherent. Abstraction fair. Computation impaired. Language function intact. Attention span short. Mood and affect remains anxious, labile. No suicidal or homicidal ideation. Laboratory Data: Reviewed. Impression: Schizoaffective disorder, bipolar type, depressed with psychotic features. Anxiety disorder unspecified. Impulse control disorder unspecified. Plan: Start Depakote ER 500 mg p.o. h.s. Check CBC, CMP, valproic acid level in 3 days. Continue rest of the psychotropics including Seroquel, Abilify, Prozac and Klonopin as p.r.n. Assessment: Vital Signs/I&O: Vital Signs Date Time Temp Pulse Resp B/P (MAP) Pulse Ox O2 Delivery O2 Flow Rate FiO2 06/18/20 06:14 97.8 62 20 124/69 (87) 94 06/17/20 06:32 Room Air I & O 06/17/20 06/17/20 06/18/20 15:00 23:00 07:00 Intake Total 540 ml 480 ml Balance 540 ml 480 ml Current Medications: Meds: Current Medications Medications (Trade) Dose Ordered Sig/Indra Route PRN Reason Start Time Stop Time Status Last Admin Dose Admin Acetaminophen (Tylenol) 650 mg PRN Q6HRS PRN PO MILD PAIN / TEMP > 100.3'F 06/07/20 16:30 06/15/20 20:34 Multi-Ingredient Ointment (Analgesic [place]) 1 joesph PRN QID PRN TP MUSCLE PAIN 4/1/21 16:30 Al Hydroxide/Mg Hydroxide (Mylanta Plus Xs) 15 ml PRN AFTMEALHC PRN PO DYSPEPSIA 06/07/20 16:30 Magnesium Hydroxide (Milk Of Magnesia) 2,400 mg PRN QHS PRN PO CONSTIPATION 2nd choice 06/07/20 16:30 Acetaminophen (Tylenol) 500 mg PRN Q6HRS PRN PO pain or fever 06/07/20 16:30 06/07/20 17:22 DC Albuterol Sulfate (Ventolin) 205 mg PRN Q4HRS PRN IH FOR ASTHMA 06/07/20 16:30 06/07/20 18:21 DC Amlodipine Besylate (Norvasc) 5 mg DAILY PO 06/08/20 09:00 06/17/20 08:16 Aripiprazole (Abilify) 15 mg DAILY PO 06/08/20 09:00 06/17/20 08:15 Aspirin (Aspirin Enteric Coated) 81 mg DAILY PO 06/08/20 09:00 06/17/20 08:16 Atorvastatin Calcium (Lipitor) 20 mg QHS PO 06/07/20 21:00 06/17/20 19:23 Calcium/Vitamin D (Oscal D 500mg/ 200uts) 1 tab BID PO 06/07/20 21:00 06/17/20 19:24 Clonazepam (KlonoPIN) 0.5 mg PRN BID PRN PO ANXIETY / AGITATION 06/07/20 16:30 06/18/20 00:12 Diclofenac Sodium (Voltaren) 2 joesph QID TP 06/07/20 17:00 06/15/20 11:53 DC 06/14/20 22:11 Docusate Sodium (Colace) 100 mg BID PO 06/07/20 21:00 06/17/20 19:25 Furosemide (Lasix) 20 mg DAILY16 PO 06/08/20 16:00 06/17/20 17:20 Hydroxyzine HCl (Atarax) 25 mg TID PO 06/07/20 21:00 06/17/20 19:25 Isosorbide Mononitrate (Imdur) 30 mg DAILY08 PO 06/08/20 08:00 06/17/20 08:16 Ketoconazole (Nizoral 2% Shampoo) 1 joesph PRN DAILY PRN TP itching on scalp 06/07/20 16:30 Levothyroxine Sodium (Synthroid) 50 mcg DAILY06 PO 06/08/20 06:00 06/18/20 04:19 Metoprolol Tartrate (Lopressor) 12.5 mg BID PO 06/07/20 21:00 06/17/20 19:24 Pantoprazole Sodium (Protonix) 40 mg DAILY08 PO 06/08/20 08:00 06/17/20 08:16 Ropinirole HCl (Requip) 0.5 mg QHS PO 06/07/20 21:00 06/17/20 19:23 Salsalate (Salsalate) 1,500 mg 0800 PO 06/08/20 08:00 06/17/20 08:15 Salsalate (Salsalate) 1,000 mg 2100 PO 06/08/20 21:00 06/17/20 19:49 Sennosides (Senna) 8.6 mg BID76 PO 06/07/20 18:00 06/10/20 05:35 DC 06/09/20 16:50 Tramadol HCl (Ultram) 50 mg PRN Q6HRS PRN PO mod-sev pain 06/07/20 16:30 06/18/20 00:12 Triamcinolone Acetonide (Kenalog) 1 joesph PRN Q12HR PRN TP itching 06/07/20 16:30 Multi-Ingred Cream/Lotion/Oil/ Oint (Hydrocerin) 1 joesph BID TP 06/07/20 21:00 06/17/20 07:33 Fluoxetine HCl (PROzac) 80 mg DAILY08 PO 06/08/20 08:00 06/17/20 08:13 Non-Formulary Medication (Liraglutide (Saxenda)) 1.8 mg 0800 SQ 06/08/20 08:00 UNV Melatonin (Melatonin) 3 mg QHS PO 06/07/20 21:00 06/17/20 19:26 Non-Formulary Medication (Olodaterol HCl (Striverdi Respimat)) 4 gm DAILY08 IH 06/08/20 08:00 UNV Potassium Chloride (Klor-Con) 10 meq TID PO 06/07/20 21:00 06/17/20 19:24 Quetiapine Fumarate (SEROquel) 300 mg DAILY08 PO 06/08/20 08:00 06/17/20 08:15 Quetiapine Fumarate (SEROquel) 600 mg QHS PO 06/07/20 21:00 06/17/20 19:23 Vitamin A/Vitamin D (Vitamin A & D Ointment) 1 joesph PRN Q1HR PRN TP SKIN PROTECTION 06/07/20 17:45 Albuterol Sulfate (Ventolin Hfa Inhaler) 1 puff PRN Q4HRS PRN INH SHORTNESS OF BREATH 06/07/20 18:30 Sennosides (Senna) 8.6 mg BID PO 06/10/20 09:00 06/17/20 19:26 Polyethylene Glycol (miraLAX) 17 gm PRN DAILY PRN PO CONSTIPATION 1st choice 06/11/20 11:00 Diclofenac Sodium (Voltaren) 2 joesph PRN QID PRN TP PAIN 06/15/20 12:00 Divalproex Sodium (Depakote Er) 500 mg QHS PO 06/17/20 21:00 06/17/20 19:48 Current Medications Medications (Trade) Dose Ordered Sig/Indra Route PRN Reason Start Time Stop Time Status Last Admin Dose Admin Divalproex Sodium (Depakote Er) 500 mg QHS PO 06/17/20 21:00 06/17/20 19:48 I have reviewed the current psychotropics carefully including drug interactions. Risk benefit ratio favors no change other than as noted in my dictated progress note. Diagnosis: Problems: (1) Schizoaffective disorder, bipolar type (2) Anxiety disorder, unspecified (3) Bipolar disorder, current episode depressed, severe, with psychotic features (4) Impulse control disorder, unspecified MICHAEL CLARK MD Jun 18, 2020 08:04
[2020-06-18] MEDS: MINERAL OIL/PETROLATUM TOPICAL CREAM 113GM JAR. TP SCH ×2 (09:00→19:43)
[2020-06-18] MEDS: ASPIRIN ENTERIC COATED 81 MG TABLET.DR. PO SCH (09:06)
[2020-06-18] MEDS: ARIPiprazole 15 MG TABLET PO SCH (09:06)
[2020-06-18] MEDS: ISOSORBIDE MONONITRATE ER 30 MG TAB.ER.24H PO SCH (09:06)
[2020-06-18] MEDS: hydrOXYzine HCL 25 MG TABLET PO SCH ×3 (09:06→19:42)
[2020-06-18] MEDS: FLUoxetine HCL 20 MG CAPSULE PO SCH (09:06)
[2020-06-18] MEDS: PANTOPRAZOLE 40 MG TABLET. PO SCH (09:07)
[2020-06-18] MEDS: METOPROLOL TART IMMED RELEASE 25 MG TABLET. PO SCH ×2 (09:07→19:42)
[2020-06-18] MEDS: CALCIUM CARB/VIT D3 500/200 TABLET PO SCH ×2 (09:07→19:41)
[2020-06-18] MEDS: DOCUSATE SODIUM 100 MG CAPSULE PO SCH ×2 (09:08→19:42)
[2020-06-18] MEDS: amLODIPine BESYLATE 5 MG TABLET PO SCH (09:08)
[2020-06-18] MEDS: QUEtiapine 100 MG TABLET. PO SCH ×2 (09:08→19:41)
[2020-06-18] MEDS: SENNOSIDES 8.6 MG TABLET PO SCH ×2 (09:08→19:41)
[2020-06-18] MEDS: POTASSIUM CHLORIDE 10 MEQ TABLET.ER. PO SCH ×3 (09:09→19:42)
[2020-06-18] MEDS: SALSALATE 500 MG PO SCH ×2 (09:13→19:40)
--- NOTE | 2020-06-18 11:41 | RAD ---
XR KNEE 3 VIEWS History: Reason: severe pain in both knee / Spl. Instructions: Technique: 3 views bilateral knees. Comparison: None. Findings: Right knee: Postoperative changes right medial hemiarthroplasty. Advanced lateral patellofemoral comp artment DJD. Normal limit. No fracture. No significant knee joint effusion. Left knee: Postoperative changes medial hemiarthroplasty. Lucency adjacent to the tibial component wi th tibial plateau depression. Heterotopic ossification adjacent to the medial tibia. Advanced lateral and patellofemoral compartment DJD. Moderate knee joint effusion. Impression: 1. Left medial compartment hemiarthroplasty with lucency adjacent to the tibial component and tibial plateau depression, age indeterminant. CT or MRI can further evaluate as clinically warranted. 2. Moderate left knee joint effusion. 3. Advanced bilateral knee DJD. 4. Prior right medial compartment hemiarthroplasty. Electronically signed by: Frank Jackson DO (06/18/2020 11:38 AM) [id number]
[2020-06-18 16:07] VITALS: BP 128/71
[2020-06-18] MEDS ORDERED: IOHEXOL 350 MG/ML 100 ML VIAL. IV ONE (16:15)
[2020-06-18] MEDS ORDERED: CHOLECALCIFEROL (VITAMIN D3) 50,000 UNIT CAPSULE PO SCH (16:30)
--- NOTE | 2020-06-18 16:57 | RAD ---
Exam: CT of chest with contrast INDICATION: Worsening short of air TECHNIQUE: Sequential axial images through the chest obtained following the administration of 100 mL of Omni 350 IV contrast. Sagittal and coronal reformatted images were reconstructed from the axial da ta and reviewed. 3-D reformatted images were reconstructed from the axial data and reviewed. Comparisons: None FINDINGS: Visualized portions of the thyroid are unremarkable. No enlarged mediastinal lymph nodes are identifi ed. Heart size is normal. No pericardial effusion. Mild coronary artery calcium lesions. Thoracic aorta h as a normal course and caliber. Pulmonary artery is not enlarged. Airways are patent. No consolidation or pneumothorax. No suspicious lung nodules are identified. Ther e is interstitial opacities at the right lung base likely representing scarring. There is a moderate-sized left pleural effusion with adjacent atelectasis. Visualized upper abdomen is unremarkable. No suspicious osseous lesions or acute fractures. IMPRESSION: 1. Moderate-sized left pleural effusion with adjacent atelectasis. 2. No pulmonary embolus identified within the main, lobar or segmental pulmonary arteries. Exposure: One or more of the following in the visualized dose reduction techniques were utilized for this examination: 1. Automated exposure control 2. Adjustment of the MA and/or KV according to patient size 3. Use of iterative of reconstructive technique Electronically signed by: Kwasi Gross MD (06/18/2020 4:54 PM) [facility]
[2020-06-18] MEDS: FUROSEMIDE 20 MG TABLET PO SCH (16:58)
[2020-06-18] MEDS: MELATONIN 3 MG TABLET PO SCH (19:41)
[2020-06-18] MEDS: rOPINIRole 0.5 MG TABLET. PO SCH (19:41)
[2020-06-18] MEDS: DIVALPROEX ER 500 MG TAB.ER.24H PO SCH (19:42)
[2020-06-18] MEDS: ATORVASTATIN CALCIUM 20 MG TABLET PO SCH (19:42)
--- NOTE | 2020-06-18 22:14 | PDOC ---
Exam Note: [place] Note: Please also refer to the separate dictated note~for this date of service dictated separately.~Patient seen individually. Discussed the patient with Nursing staff reviewed the chart.~Reviewed interim history and current functioning. Reviewed vital signs,~Labs/ Radiology~and current medications noted below. Continue current treatment with the changes noted in the dictated addendum note Assessment: Vital Signs/I&O: Vital Signs Date Time Temp Pulse Resp B/P (MAP) Pulse Ox O2 Delivery O2 Flow Rate FiO2 06/18/20 19:42 75 128/71 06/18/20 16:07 97.9 18 95 06/18/20 15:30 Room Air I & O 06/17/20 06/17/20 06/18/20 15:00 23:00 07:00 Intake Total 540 ml 480 ml Balance 540 ml 480 ml Current Medications: Meds: Current Medications Medications (Trade) Dose Ordered Sig/Indra Route PRN Reason Start Time Stop Time Status Last Admin Dose Admin Acetaminophen (Tylenol) 650 mg PRN Q6HRS PRN PO MILD PAIN / TEMP > 100.3'F 06/07/20 16:30 06/15/20 20:34 Multi-Ingredient Ointment (Analgesic [place]) 1 joesph PRN QID PRN TP MUSCLE PAIN 06/07/20 16:30 Al Hydroxide/Mg Hydroxide (Mylanta Plus Xs) 15 ml PRN AFTMEALHC PRN PO DYSPEPSIA 06/07/20 16:30 Magnesium Hydroxide (Milk Of Magnesia) 2,400 mg PRN QHS PRN PO CONSTIPATION 2nd choice 06/07/20 16:30 Acetaminophen (Tylenol) 500 mg PRN Q6HRS PRN PO pain or fever 06/07/20 16:30 06/07/20 17:22 DC Albuterol Sulfate (Ventolin) 205 mg PRN Q4HRS PRN IH FOR ASTHMA 06/07/20 16:30 06/07/20 18:21 DC Amlodipine Besylate (Norvasc) 5 mg DAILY PO 06/08/20 09:00 06/18/20 09:08 Aripiprazole (Abilify) 15 mg DAILY PO 06/08/20 09:00 06/18/20 09:06 Aspirin (Aspirin Enteric Coated) 81 mg DAILY PO 06/08/20 09:00 06/18/20 09:06 Atorvastatin Calcium (Lipitor) 20 mg QHS PO 06/07/20 21:00 06/18/20 19:42 Calcium/Vitamin D (Oscal D 500mg/ 200uts) 1 tab BID PO 06/07/20 21:00 06/18/20 19:41 Clonazepam (KlonoPIN) 0.5 mg PRN BID PRN PO ANXIETY / AGITATION 06/07/20 16:30 06/18/20 14:29 Diclofenac Sodium (Voltaren) 2 joesph QID TP 06/07/20 17:00 06/15/20 11:53 DC 06/14/20 22:11 Docusate Sodium (Colace) 100 mg BID PO 06/07/20 21:00 06/18/20 19:42 Furosemide (Lasix) 20 mg DAILY16 PO 06/08/20 16:00 06/18/20 16:58 Hydroxyzine HCl (Atarax) 25 mg TID PO 06/07/20 21:00 06/18/20 19:42 Isosorbide Mononitrate (Imdur) 30 mg DAILY08 PO 06/08/20 08:00 06/18/20 09:06 Ketoconazole (Nizoral 2% Shampoo) 1 joesph PRN DAILY PRN TP itching on scalp 06/07/20 16:30 Levothyroxine Sodium (Synthroid) 50 mcg DAILY06 PO 06/08/20 06:00 06/18/20 15:58 DC 06/18/20 04:19 Metoprolol Tartrate (Lopressor) 12.5 mg BID PO 06/07/20 21:00 06/18/20 19:42 Pantoprazole Sodium (Protonix) 40 mg DAILY08 PO 06/08/20 08:00 06/18/20 09:07 Ropinirole HCl (Requip) 0.5 mg QHS PO 06/07/20 21:00 06/18/20 19:41 Salsalate (Salsalate) 1,500 mg 0800 PO 06/08/20 08:00 06/18/20 09:13 Salsalate (Salsalate) 1,000 mg 2100 PO 06/08/20 21:00 06/18/20 19:40 Sennosides (Senna) 8.6 mg BID76 PO 06/07/20 18:00 06/10/20 05:35 DC 06/09/20 16:50 Tramadol HCl (Ultram) 50 mg PRN Q6HRS PRN PO mod-sev pain 06/07/20 16:30 06/18/20 14:30 Triamcinolone Acetonide (Kenalog) 1 joesph PRN Q12HR PRN TP itching 06/07/20 16:30 Multi-Ingred Cream/Lotion/Oil/ Oint (Hydrocerin) 1 joesph BID TP 06/07/20 21:00 06/18/20 09:00 Fluoxetine HCl (PROzac) 80 mg DAILY08 PO 06/08/20 08:00 06/18/20 09:06 Non-Formulary Medication (Liraglutide (Saxenda)) 1.8 mg 0800 SQ 06/08/20 08:00 UNV Melatonin (Melatonin) 3 mg QHS PO 06/07/20 21:00 06/18/20 19:41 Non-Formulary Medication (Olodaterol HCl (Striverdi Respimat)) 4 gm DAILY08 IH 06/08/20 08:00 UNV Potassium Chloride (Klor-Con) 10 meq TID PO 06/07/20 21:00 06/18/20 19:42 Quetiapine Fumarate (SEROquel) 300 mg DAILY08 PO 06/08/20 08:00 06/18/20 09:08 Quetiapine Fumarate (SEROquel) 600 mg QHS PO 06/07/20 21:00 06/18/20 19:41 Vitamin A/Vitamin D (Vitamin A & D Ointment) 1 joesph PRN Q1HR PRN TP SKIN PROTECTION 06/07/20 17:45 Albuterol Sulfate (Ventolin Hfa Inhaler) 1 puff PRN Q4HRS PRN INH SHORTNESS OF BREATH 06/07/20 18:30 Sennosides (Senna) 8.6 mg BID PO 06/10/20 09:00 06/18/20 19:41 Polyethylene Glycol (miraLAX) 17 gm PRN DAILY PRN PO CONSTIPATION 1st choice 06/11/20 11:00 Diclofenac Sodium (Voltaren) 2 joesph PRN QID PRN TP PAIN 06/15/20 12:00 Divalproex Sodium (Depakote Er) 500 mg QHS PO 06/17/20 21:00 06/18/20 19:42 Levothyroxine Sodium (Synthroid) 75 mcg DAILY06 PO 06/19/20 06:00 Vitamin D (Vitamin D3) 50,000 unit WEEKLY PO 06/18/20 16:30 06/18/20 16:58 Cyanocobalamin (Vitamin B-12) 1,000 mcg Q4WK IM 06/19/20 09:00 Iohexol (Omnipaque 350 Mg/ml) 100 ml 1X ONCE IV 06/18/20 16:15 06/18/20 16:21 DC 06/18/20 16:29 Current Medications Medications (Trade) Dose Ordered Sig/Indra Route PRN Reason Start Time Stop Time Status Last Admin Dose Admin Vitamin D (Vitamin D3) 50,000 unit WEEKLY PO 06/18/20 16:30 06/18/20 16:58 Iohexol (Omnipaque 350 Mg/ml) 100 ml 1X ONCE IV 06/18/20 16:15 06/18/20 16:21 DC 06/18/20 16:29 I have reviewed the current psychotropics carefully including drug interactions. Risk benefit ratio favors no change other than as noted in my dictated progress note. Diagnosis: Problems: (1) Schizoaffective disorder, bipolar type (2) Anxiety disorder, unspecified (3) Bipolar disorder, current episode depressed, severe, with psychotic features (4) Impulse control disorder, unspecified MICHAEL CLARK MD Jun 18, 2020 22:14
--- NOTE | 2020-06-18 22:22 | NUR ---
Nursing Note Pt is upset this pm about being here, her lungs and mood are the topics of conversation. She is worried about never going home, is hyperverbal, I reassured her that her vitals are stable, labs are ok, that she needs to work on her mental health and decreasing her anxiety level. Pt took some deep breaths and was able to focus and rationally talk to me. Records requested from [facility] pathology department and given to Dr. Lowe verbally, he will review them tomorrow and correlate clinical findings. Discussed pt at length with her sister inlaw this PM, she had concerns that the pt had been really bad sounding over the phone yesterday and today, with rambling speech, mixing up details from her life and being manic in general. Pt is quite labile will cry at the end of sentences and is perseverating on her medical issues. I spent lots of time educating and discussing her medical and psych concerns. Pt has her CPAP on now and is resting.
--- NOTE | 2020-06-18 22:54 | PN ---
DATE: SUBJECTIVE: The patient is a 64-year-old female patient whom I have asked today to see us. She is complaining of shortness of breath, particularly on exertion and the nursing staff stated that she was wheezy this morning and we did actually chest x-ray, complain of pain in her knee joints and apparently, she has had bilateral knee hemiarthroplasty with lucency adjacent to the tibial component, the tibial plateau depression. Her chest x-ray showed that the patient has hazy right lung infiltrate, probable left pleural effusion and atelectasis or consolidative infiltrate at the right lung base. PHYSICAL EXAMINATION: GENERAL: When I examined her this afternoon, she looked well and was clearly in no apparent distress. She was pale, but no jaundice or cyanosis. No lymphadenopathy, no thyromegaly. No jugular venous distention or limb edema. VITAL SIGNS: Her heart rate was 62, blood pressure was 124/69, temperature was 97.8, respiratory rate was 17 and oxygen saturation was 94%. HEENT: Showed normocephalic, atraumatic. NECK: Supple. HEART: Showed normal first and second heart sounds. No gallop, rub or murmur. CHEST: Shows central trachea, equal bilateral chest expansion, air entry with crepitation mostly on the right side posteriorly. I could not really appreciate any rhonchi; however, she has breathing treatment earlier on. ABDOMEN: Markedly distended, soft, nontender. No guarding or rigidity. No organomegaly. All hernial orifices intact. Bowel sounds normal. NEUROLOGIC: She is awake, alert, and responding appropriately. All her cranial nerves intact. She is able to wheel herself around. LABORATORY DATA: She has had lab work done showed a white cell count 7900, hemoglobin 11, hematocrit 34, MCV 83, and platelet count of 345,000. Her chemistry showed a serum sodium 138, potassium 4.5, chloride 102, bicarbonate 26, anion gap of 10, BUN 25, creatinine 0.8, estimated GFR was 72 mL per minute. Her glucose was 21, calcium was 9.6. Total bilirubin, AST, ALT, alkaline phosphatase were normal. Total protein 7, albumin was 3.1. Her vitamin B12, 25-hydroxy vitamin D, total T4 and total T3 are all low. Apparently, the patient's oxygen saturation is normal at rest, but she desaturated on exertion according to nursing staff. Her x-ray of her knee joints showed that the patient has left medial compartment hemiarthroplasty and with lucency adjacent to the tibial component and tibial plateau, depression, age indeterminate. CT or MRI can further evaluate as clinically indicated as she has moderate left knee joint effusion and advanced bilateral knee degenerative joint disease. She has prior right medial compartment hemiarthroplasty. PLAN: My plan is to continue with all her current medication for the time being. I will arrange for her to have a CT angio of the chest and decide on further treatment accordingly. I will replenish her vitamin D and B12 and her T3, T4, total T4 and total T3 are low and I would probably increase her levothyroxine to probably 75 mcg for now. NICK ANDERSEN MD DR: VIK/radha JOB#: [id number] / [id number]
[2020-06-19] MEDS: ACETAMINOPHEN 325 MG TABLET PO PRN (05:00)
[2020-06-19] MEDS: LEVOTHYROXINE 75 MCG TABLET PO SCH (05:16)
[2020-06-19 06:15] VITALS: BP 129/72
[2020-06-19] MEDS: NON FORMULARY ITEM (Olodaterol HCl (Striverdi Respimat) 4 GM) IH SCH (07:43)
[2020-06-19] MEDS: ASPIRIN ENTERIC COATED 81 MG TABLET.DR. PO SCH (07:44)
[2020-06-19] MEDS: ISOSORBIDE MONONITRATE ER 30 MG TAB.ER.24H PO SCH (07:44)
[2020-06-19] MEDS: PANTOPRAZOLE 40 MG TABLET. PO SCH (07:45)
[2020-06-19] MEDS: SENNOSIDES 8.6 MG TABLET PO SCH ×2 (07:45→19:50)
[2020-06-19] MEDS: QUEtiapine 100 MG TABLET. PO SCH ×2 (07:45→19:50)
[2020-06-19] MEDS: METOPROLOL TART IMMED RELEASE 25 MG TABLET. PO SCH ×2 (07:45→19:52)
[2020-06-19] MEDS: CALCIUM CARB/VIT D3 500/200 TABLET PO SCH ×2 (07:45→19:51)
[2020-06-19] MEDS: ARIPiprazole 15 MG TABLET PO SCH (07:45)
[2020-06-19] MEDS: amLODIPine BESYLATE 5 MG TABLET PO SCH (07:47)
[2020-06-19] MEDS: DOCUSATE SODIUM 100 MG CAPSULE PO SCH ×2 (07:47→19:50)
[2020-06-19] MEDS: POTASSIUM CHLORIDE 10 MEQ TABLET.ER. PO SCH ×3 (07:47→19:51)
[2020-06-19] MEDS: hydrOXYzine HCL 25 MG TABLET PO SCH ×3 (07:47→19:52)
[2020-06-19] MEDS: FLUoxetine HCL 20 MG CAPSULE PO SCH (07:47)
[2020-06-19] MEDS: SALSALATE 500 MG PO SCH ×2 (07:48→20:12)
[2020-06-19] MEDS: LIRAGLUTIDE 1.8 MG SQ SCH (08:00)
--- NOTE | 2020-06-19 08:31 | PDOC ---
Exam Note: [place] Note: This note is a late entry for 06/18/2020 covers elements not covered in my initial note. Subjective: The patient was seen individually in the evening of 06/18/2020 with Jennifer WOMACK, discussed and reviewed the chart. The patient just slept 5-1/2 hours previous night. Overall the patient remains anxious, labile, paranoid at times. She has had some breathing difficulty. Dr. Lowe is following this. She has had CT chest due to crackles in the chest. Mood is somewhat depressed, anxious, and labile. Review of Systems: Ambulation impaired in wheelchair. Some difficulty with anxiety and breathing. No CV, , eye system symptoms on review. She is wanting a private room to reduce noise stimulation and I made nursing staff aware of this. Mental Status Exam: The patient is oriented to herself and situation. She con tinues to have mood lability, anxiety, distractibility. Speech coherent. Abstraction fair. Computation impaired. Language function intact. Attention span short. Mood and affect remains anxious, labile. No suicidal or homicidal ideation. Laboratory Data: Reviewed. Impression: Schizoaffective disorder, bipolar type, depressed with psychotic features. Anxiety disorder unspecified. Impulse control disorder unspecified. Plan: No change from initial note. We have initiated Depakote. We will follow labs level. Adjust further as clinically indicated. Assessment: Vital Signs/I&O: Vital Signs Date Time Temp Pulse Resp B/P (MAP) Pulse Ox O2 Delivery O2 Flow Rate FiO2 06/19/20 07:47 61 129/72 06/19/20 06:15 97.4 20 95 06/18/20 15:30 Room Air I & O 06/18/20 06/18/20 06/19/20 15:00 23:00 07:00 Intake Total 720 ml 600 ml Balance 720 ml 600 ml Current Medications: Meds: Current Medications Medications (Trade) Dose Ordered Sig/Indra Route PRN Reason Start Time Stop Time Status Last Admin Dose Admin Acetaminophen (Tylenol) 650 mg PRN Q6HRS PRN PO MILD PAIN / TEMP > 100.3'F 06/07/20 16:30 06/19/20 05:00 Multi-Ingredient Ointment (Analgesic [place]) 1 joesph PRN QID PRN TP MUSCLE PAIN 06/07/20 16:30 Al Hydroxide/Mg Hydroxide (Mylanta Plus Xs) 15 ml PRN AFTMEALHC PRN PO DYSPEPSIA 06/07/20 16:30 Magnesium Hydroxide (Milk Of Magnesia) 2,400 mg PRN QHS PRN PO CONSTIPATION 2nd choice 06/07/20 16:30 Acetaminophen (Tylenol) 500 mg PRN Q6HRS PRN PO pain or fever 06/07/20 16:30 06/07/20 17:22 DC Albuterol Sulfate (Ventolin) 205 mg PRN Q4HRS PRN IH FOR ASTHMA 06/07/20 16:30 06/07/20 18:21 DC Amlodipine Besylate (Norvasc) 5 mg DAILY PO 06/08/20 09:00 06/19/20 07:47 Aripiprazole (Abilify) 15 mg DAILY PO 06/08/20 09:00 06/19/20 07:45 Aspirin (Aspirin Enteric Coated) 81 mg DAILY PO 06/08/20 09:00 06/19/20 07:44 Atorvastatin Calcium (Lipitor) 20 mg QHS PO 06/07/20 21:00 06/18/20 19:42 Calcium/Vitamin D (Oscal D 500mg/ 200uts) 1 tab BID PO 06/07/20 21:00 06/19/20 07:45 Clonazepam (KlonoPIN) 0.5 mg PRN BID PRN PO ANXIETY / AGITATION 06/07/20 16:30 06/18/20 14:29 Diclofenac Sodium (Voltaren) 2 joesph QID TP 06/07/20 17:00 06/15/20 11:53 DC 06/14/20 22:11 Docusate Sodium (Colace) 100 mg BID PO 06/07/20 21:00 06/19/20 07:47 Furosemide (Lasix) 20 mg DAILY16 PO 06/08/20 16:00 06/18/20 16:58 Hydroxyzine HCl (Atarax) 25 mg TID PO 06/07/20 21:00 06/19/20 07:47 Isosorbide Mononitrate (Imdur) 30 mg DAILY08 PO 06/08/20 08:00 06/19/20 07:44 Ketoconazole (Nizoral 2% Shampoo) 1 joesph PRN DAILY PRN TP itching on scalp 06/07/20 16:30 Levothyroxine Sodium (Synthroid) 50 mcg DAILY06 PO 06/08/20 06:00 06/18/20 15:58 DC 06/18/20 04:19 Metoprolol Tartrate (Lopressor) 12.5 mg BID PO 06/07/20 21:00 06/19/20 07:45 Pantoprazole Sodium (Protonix) 40 mg DAILY08 PO 06/08/20 08:00 06/19/20 07:45 Ropinirole HCl (Requip) 0.5 mg QHS PO 06/07/20 21:00 06/18/20 19:41 Salsalate (Salsalate) 1,500 mg 0800 PO 06/08/20 08:00 06/19/20 07:48 Salsalate (Salsalate) 1,000 mg 2100 PO 06/08/20 21:00 06/18/20 19:40 Sennosides (Senna) 8.6 mg BID76 PO 06/07/20 18:00 06/10/20 05:35 DC 06/09/20 16:50 Tramadol HCl (Ultram) 50 mg PRN Q6HRS PRN PO mod-sev pain 06/07/20 16:30 06/18/20 23:54 Triamcinolone Acetonide (Kenalog) 1 joesph PRN Q12HR PRN TP itching 06/07/20 16:30 Multi-Ingred Cream/Lotion/Oil/ Oint (Hydrocerin) 1 joesph BID TP 06/07/20 21:00 06/18/20 09:00 Fluoxetine HCl (PROzac) 80 mg DAILY08 PO 06/08/20 08:00 06/19/20 07:47 Non-Formulary Medication (Liraglutide (Saxenda)) 1.8 mg 0800 SQ 06/08/20 08:00 UNV Melatonin (Melatonin) 3 mg QHS PO 06/07/20 21:00 06/18/20 19:41 Non-Formulary Medication (Olodaterol HCl (Striverdi Respimat)) 4 gm DAILY08 IH 06/08/20 08:00 UNV Potassium Chloride (Klor-Con) 10 meq TID PO 06/07/20 21:00 06/19/20 07:47 Quetiapine Fumarate (SEROquel) 300 mg DAILY08 PO 06/08/20 08:00 06/19/20 07:45 Quetiapine Fumarate (SEROquel) 600 mg QHS PO 06/07/20 21:00 06/18/20 19:41 Vitamin A/Vitamin D (Vitamin A & D Ointment) 1 joesph PRN Q1HR PRN TP SKIN PROTECTION 06/07/20 17:45 Albuterol Sulfate (Ventolin Hfa Inhaler) 1 puff PRN Q4HRS PRN INH SHORTNESS OF BREATH 06/07/20 18:30 Sennosides (Senna) 8.6 mg BID PO 06/10/20 09:00 06/19/20 07:45 Polyethylene Glycol (miraLAX) 17 gm PRN DAILY PRN PO CONSTIPATION 1st choice 06/11/20 11:00 Diclofenac Sodium (Voltaren) 2 joesph PRN QID PRN TP PAIN 06/15/20 12:00 Divalproex Sodium (Depakote Er) 500 mg QHS PO 06/17/20 21:00 06/18/20 19:42 Levothyroxine Sodium (Synthroid) 75 mcg DAILY06 PO 06/19/20 06:00 06/19/20 05:16 Vitamin D (Vitamin D3) 50,000 unit WEEKLY PO 06/18/20 16:30 06/18/20 16:58 Cyanocobalamin (Vitamin B-12) 1,000 mcg Q4WK IM 06/19/20 09:00 Iohexol (Omnipaque 350 Mg/ml) 100 ml 1X ONCE IV 06/18/20 16:15 06/18/20 16:21 DC 06/18/20 16:29 Current Medications Medications (Trade) Dose Ordered Sig/Indra Route PRN Reason Start Time Stop Time Status Last Admin Dose Admin Levothyroxine Sodium (Synthroid) 75 mcg DAILY06 PO 06/19/20 06:00 06/19/20 05:16 Vitamin D (Vitamin D3) 50,000 unit WEEKLY PO 06/18/20 16:30 06/18/20 16:58 Iohexol (Omnipaque 350 Mg/ml) 100 ml 1X ONCE IV 06/18/20 16:15 06/18/20 16:21 DC 06/18/20 16:29 I have reviewed the current psychotropics carefully including drug interactions. Risk benefit ratio favors no change other than as noted in my dictated progress note. Diagnosis: Problems: (1) Schizoaffective disorder, bipolar type (2) Anxiety disorder, unspecified (3) Bipolar disorder, current episode depressed, severe, with psychotic features (4) Impulse control disorder, unspecified MICHAEL CLARK MD Jun 19, 2020 08:31
[2020-06-19] MEDS ORDERED: CYANOCOBALAMIN (VITAMIN B-12) 1,000 MCG/ML VIAL. IM SCH (09:00)
[2020-06-19] MEDS: MINERAL OIL/PETROLATUM TOPICAL CREAM 113GM JAR. TP SCH ×2 (09:00→21:00)
--- NOTE | 2020-06-19 12:12 | NUR ---
The patient phone received a direct call from Emerald Lopez pt's outpatient counselor in [place]. She gave the passcode and requested to speak with pt. Pt was currently in a PT session and the request could not be accommodated. Emerald said she would try again later. This nurse found it peculiar that an outpatient counselor was calling directly to the patient phone (and had the passcode) and remembered that earlier in the CNAs remarking that pt was on the patient phone for a very long time. This nurse contacted Brother/DPOA to inquire if he gave the passcode to Emerald, to which he said "No. But Solange (pt) knows the passcode." There is a very strong/high possibility that pt has been using the phone to contact at least one individual and provided them with the passcode for future contact. JOSE LUIS and pt's assigned nurse notified immediately.
--- NOTE | 2020-06-19 13:10 | NUR ---
JOSE LUIS returned call to America at the ID, who reported that pt called her completely unsupervised. He reminded pt that she was only supposed to call with SW present but stated "I don't remember her saying that". It appears that pt called America and her [facility] counselor, Emerald Harvey, who ended up giving a passcode, which is unknown how she got the passcode. JOSE LUIS and America discussed the fact that pt is going downstairs tomorrow for a Thoracentesis and would be in ICU for 24 hours. JOSE LUIS and America also discussed finding placement for pt as it is not safe to be at home. America is the only person that pt allows to come in her apartment and pt needs more care and supports than she will allow. JOSE LUIS discussed calling pt brother to discuss this as pt continues to be hallucinating, labile moods and not in the best position cognitively to make this decision. Both parties agree that if pt brother does not agree to placement, SW will plan to call a safety hotline in to aid in either placement or guardianship. America reports every morning when they hold meetings guardianship is discussed, but "it takes an act of God to get the [facility] to do anything nowadays" JOSE LUIS will continue to keep America updated on pt progress and placement options.
--- NOTE | 2020-06-19 14:03 | NUR ---
JOSE LUIS returned call to pt brother, Felix, who wanted an update on pt care. Felix is questioning how pt was able to obtain her passcode and is debating changing it. JOSE LUIS encouraged a change in passcode as she has called multiple other people; in which SW will plan to only allow her to have phone calls with SW present. JOSE LUIS informed pt brother that pt would be having a procedure tomorrow to get the fluid off her lungs; however, was not able to inform him what time tomorrow that is happening. JOSE LUIS will plan to have someone call pt brother to let him know how the procedure goes. JOSE LUIS also mentioned to pt brother placement. Pt is not safe to go home at this time and does not feel it would be an appropriate decision. Pt continues to be hallucinating, is labile in nature and with her significant physical decline being observed by staff in a 24/7 setting would be most appropriate. Pt brother agrees and would like assistance in finding placement as he lives in [place] and is not near to do anything at the moment. JOSE LUIS encouraged pt brother to come up and see pt, as it appears that she has declined since his last visit prior to [facility]. JOSE LUIS will continue to keep pt brother updated on pt progress.
[2020-06-19] MEDS: clonazePAM 0.5 MG TABLET PO PRN (15:33)
[2020-06-19] MEDS: FUROSEMIDE 20 MG TABLET PO SCH (15:34)
--- NOTE | 2020-06-19 15:53 | NUR ---
NURSING NOTE PT WAS IN HER ROOM THIS AM UPON ASSESSMENT AND MEDICATION ADMINISTRATION. PT A&O. PT DENIES SI. PT STATES SHE IS ANXIOUS AND AFRAID. PT STATES "I FEEL LIKE I HAVE TO SAY ITS ALL GOOD IN THE NEIGHBOR [place]ER[place] TO GET OUT OF HERE". PT C/O LEFT FLANK PAIN AND LEFT KNEE PAIN. PT GETS WINDED WHEN SPEAKING WITH THIS NURSE TODAY. PT HAS CRACKLES IN RLL. PT C/O ACID REFLUX WELL. PLAN IS TO DC TOMORROW MORNING TO ICU TO GET THORACENTESIS PROCEDURE AND EVALUATION MONITORING POST PROCEDURE. PT HAS BEEN CALLING OTHER PEOPLE ON THE PATIENT PHONE AND GIVING OUT HER PASSCODE. PT REFERRED TO [employer] ATTENDANT FOR EDUCATION ON RULES OF TELEPHONE PRIVLIDGE. PRN GIOVANI GIVEN FOR ANXIOUSNESS. SHANTA VAQSUEZ.
[2020-06-19 16:20] VITALS: BP 173/79
[2020-06-19] MEDS: DIVALPROEX ER 500 MG TAB.ER.24H PO SCH (19:51)
[2020-06-19] MEDS: MELATONIN 3 MG TABLET PO SCH (19:51)
[2020-06-19] MEDS: rOPINIRole 0.5 MG TABLET. PO SCH (19:51)
[2020-06-19] MEDS: ATORVASTATIN CALCIUM 20 MG TABLET PO SCH (19:53)
--- NOTE | 2020-06-19 21:55 | PDOC ---
Exam Note: [place] Note: Please also refer to the separate dictated note~for this date of service dictated separately.~Patient seen individually. Discussed the patient with Nursing staff reviewed the chart.~Reviewed interim history and current functioning. Reviewed vital signs,~Labs/ Radiology~and current medications noted below. Continue current treatment with the changes noted in the dictated addendum note Assessment: Vital Signs/I&O: Vital Signs Date Time Temp Pulse Resp B/P (MAP) Pulse Ox O2 Delivery O2 Flow Rate FiO2 06/19/20 19:52 88 173/79 06/19/20 16:20 98.0 22 93 06/18/20 15:30 Room Air I & O 06/18/20 06/18/20 06/19/20 15:00 23:00 07:00 Intake Total 720 ml 600 ml Balance 720 ml 600 ml Labs: Laboratory Tests Test 06/19/20 13:50 Prothrombin Time 9.7 SEC (9.4-11.4) Prothrombin Time INR 0.9 (0.9-1.1) Activated Partial Thromboplast Time 26 SEC (23-33) Current Medications: Meds: Laboratory Tests Test 06/19/20 13:50 Prothrombin Time 9.7 SEC Prothromb Time International Ratio 0.9 Activated Partial Thromboplast Time 26 SEC Current Medications Medications (Trade) Dose Ordered Sig/Indra Route PRN Reason Start Time Stop Time Status Last Admin Dose Admin Acetaminophen (Tylenol) 650 mg PRN Q6HRS PRN PO MILD PAIN / TEMP > 100.3'F 06/07/20 16:30 06/19/20 05:00 Multi-Ingredient Ointment (Analgesic [place]) 1 joesph PRN QID PRN TP MUSCLE PAIN 06/07/20 16:30 Al Hydroxide/Mg Hydroxide (Mylanta Plus Xs) 15 ml PRN AFTMEALHC PRN PO DYSPEPSIA 06/07/20 16:30 Magnesium Hydroxide (Milk Of Magnesia) 2,400 mg PRN QHS PRN PO CONSTIPATION 2nd choice 06/07/20 16:30 Acetaminophen (Tylenol) 500 mg PRN Q6HRS PRN PO pain or fever 06/07/20 16:30 06/07/20 17:22 DC Albuterol Sulfate (Ventolin) 205 mg PRN Q4HRS PRN IH FOR ASTHMA 06/07/20 16:30 06/07/20 18:21 DC Amlodipine Besylate (Norvasc) 5 mg DAILY PO 06/08/20 09:00 06/19/20 07:47 Aripiprazole (Abilify) 15 mg DAILY PO 06/08/20 09:00 06/19/20 07:45 Aspirin (Aspirin Enteric Coated) 81 mg DAILY PO 06/08/20 09:00 06/19/20 07:44 Atorvastatin Calcium (Lipitor) 20 mg QHS PO 06/07/20 21:00 06/19/20 19:53 Calcium/Vitamin D (Oscal D 500mg/ 200uts) 1 tab BID PO 06/07/20 21:00 06/19/20 19:51 Clonazepam (KlonoPIN) 0.5 mg PRN BID PRN PO ANXIETY / AGITATION 06/07/20 16:30 06/19/20 15:33 Diclofenac Sodium (Voltaren) 2 joesph QID TP 06/07/20 17:00 06/15/20 11:53 DC 06/14/20 22:11 Docusate Sodium (Colace) 100 mg BID PO 06/07/20 21:00 06/19/20 19:50 Furosemide (Lasix) 20 mg DAILY16 PO 06/08/20 16:00 06/19/20 15:34 Hydroxyzine HCl (Atarax) 25 mg TID PO 06/07/20 21:00 06/19/20 19:52 Isosorbide Mononitrate (Imdur) 30 mg DAILY08 PO 06/08/20 08:00 06/19/20 07:44 Ketoconazole (Nizoral 2% Shampoo) 1 joesph PRN DAILY PRN TP itching on scalp 06/07/20 16:30 Levothyroxine Sodium (Synthroid) 50 mcg DAILY06 PO 06/08/20 06:00 06/18/20 15:58 DC 06/18/20 04:19 Metoprolol Tartrate (Lopressor) 12.5 mg BID PO 06/07/20 21:00 06/19/20 19:52 Pantoprazole Sodium (Protonix) 40 mg DAILY08 PO 06/08/20 08:00 06/19/20 07:45 Ropinirole HCl (Requip) 0.5 mg QHS PO 06/07/20 21:00 06/19/20 19:51 Salsalate (Salsalate) 1,500 mg 0800 PO 06/08/20 08:00 06/19/20 07:48 Salsalate (Salsalate) 1,000 mg 2100 PO 06/08/20 21:00 06/19/20 20:12 Sennosides (Senna) 8.6 mg BID76 PO 06/07/20 18:00 06/10/20 05:35 DC 06/09/20 16:50 Tramadol HCl (Ultram) 50 mg PRN Q6HRS PRN PO mod-sev pain 06/07/20 16:30 06/18/20 23:54 Triamcinolone Acetonide (Kenalog) 1 joesph PRN Q12HR PRN TP itching 06/07/20 16:30 Multi-Ingred Cream/Lotion/Oil/ Oint (Hydrocerin) 1 joesph BID TP 06/07/20 21:00 06/19/20 09:00 Fluoxetine HCl (PROzac) 80 mg DAILY08 PO 06/08/20 08:00 06/19/20 07:47 Non-Formulary Medication (Liraglutide (Saxenda)) 1.8 mg 0800 SQ 06/08/20 08:00 UNV Melatonin (Melatonin) 3 mg QHS PO 06/07/20 21:00 06/19/20 19:51 Non-Formulary Medication (Olodaterol HCl (Striverdi Respimat)) 4 gm DAILY08 IH 06/08/20 08:00 UNV Potassium Chloride (Klor-Con) 10 meq TID PO 06/07/20 21:00 06/19/20 19:51 Quetiapine Fumarate (SEROquel) 300 mg DAILY08 PO 06/08/20 08:00 06/19/20 07:45 Quetiapine Fumarate (SEROquel) 600 mg QHS PO 06/07/20 21:00 06/19/20 19:50 Vitamin A/Vitamin D (Vitamin A & D Ointment) 1 joesph PRN Q1HR PRN TP SKIN PROTECTION 06/07/20 17:45 Albuterol Sulfate (Ventolin Hfa Inhaler) 1 puff PRN Q4HRS PRN INH SHORTNESS OF BREATH 06/07/20 18:30 Sennosides (Senna) 8.6 mg BID PO 06/10/20 09:00 06/19/20 19:50 Polyethylene Glycol (miraLAX) 17 gm PRN DAILY PRN PO CONSTIPATION 1st choice 06/11/20 11:00 Diclofenac Sodium (Voltaren) 2 joesph PRN QID PRN TP PAIN 06/15/20 12:00 Divalproex Sodium (Depakote Er) 500 mg QHS PO 06/17/20 21:00 06/19/20 19:51 Levothyroxine Sodium (Synthroid) 75 mcg DAILY06 PO 06/19/20 06:00 06/19/20 05:16 Vitamin D (Vitamin D3) 50,000 unit WEEKLY PO 06/18/20 16:30 06/18/20 16:58 Cyanocobalamin (Vitamin B-12) 1,000 mcg Q4WK IM 06/19/20 09:00 06/19/20 09:17 Iohexol (Omnipaque 350 Mg/ml) 100 ml 1X ONCE IV 06/18/20 16:15 06/18/20 16:21 DC 06/18/20 16:29 Current Medications Medications (Trade) Dose Ordered Sig/Indra Route PRN Reason Start Time Stop Time Status Last Admin Dose Admin Levothyroxine Sodium (Synthroid) 75 mcg DAILY06 PO 06/19/20 06:00 06/19/20 05:16 Cyanocobalamin (Vitamin B-12) 1,000 mcg Q4WK IM 06/19/20 09:00 06/19/20 09:17 I have reviewed the current psychotropics carefully including drug interactions. Risk benefit ratio favors no change other than as noted in my dictated progress note. Diagnosis: Problems: (1) Schizoaffective disorder, bipolar type (2) Anxiety disorder, unspecified (3) Bipolar disorder, current episode depressed, severe, with psychotic features (4) Impulse control disorder, unspecified MICHAEL CLARK MD Jun 19, 2020 21:55
--- NOTE | 2020-06-19 23:30 | NUR ---
Nursing Note Pt is less paranoid and anxious this pm. Pt confided in me that she had spoken to her sister wanda in such away to elicit a response to meet her needs, that she wanted to get a rise out of her to see if she really even cared about her. We talked about attention seeking behavior vs validation and holding others hostage. She admitted that she shouldn't have been so dramatic and was remorseful about that. She knows about her going to the medical floor in the am for her procedure. Pt pleasant and med compliant will be NPO after midnight.
[2020-06-20] MEDS ORDERED: CHOL500021 PO (00:27)
[2020-06-20] MEDS ORDERED: VITS42.55 TP (00:28)
[2020-06-20] MEDS ORDERED: CYAN10002 IM (00:41)
[2020-06-20] MEDS: LEVOTHYROXINE 75 MCG TABLET PO SCH (01:58)
--- NOTE | 2020-06-20 04:32 | PN ---
DATE: 06/19/2020 SUBJECTIVE: The patient was seen today as she has been complaining of shortness of breath and we did chest x-ray, which showed that she has left sided pleural effusion; however, she continued to complain of shortness of breath and we did a CT scan of the chest with CT angio of the chest, which basically showed that the patient has moderate-sized left sided pleural effusion with adjacent atelectasis. There is no pulmonary embolus identified within the main lobar or segmental pulmonary arteries given that she has worsening shortness of breath, a decision was made to arrange for thoracentesis under ultrasound guidance. I have spoken with the x-ray department and we will arrange for her to have her PT/INR and aPTT done today and she will be transferred to [address] [place] [address] tomorrow for the procedure to be done and to be monitored after that for at least 24 hours to make sure she does not have developed post-procedure pneumothorax. OBJECTIVE: GENERAL: On examining her today, she looked well and was clearly in no apparent respiratory distress. She is pale, no jaundice, cyanosis or thyromegaly. No jugular venous distention. No limb edema. VITAL SIGNS: Her heart rate was 61, blood pressure was 129/72, temperature was 97.4, respiratory rate was 20, and oxygen saturation was 95% on room air. HEAD, EYES, EARS, NOSE AND THROAT: Showed normocephalic, atraumatic. NECK: Supple. HEART: Showed normal first and second heart sounds with no gallop, rub or murmur. CHEST: Shows central trachea, equal bilateral expansion, air entry, vesicular sounds with dull percussion noted and absent breath sounds on the left side posteriorly. ABDOMEN: Distended, soft, nontender. NEUROLOGIC: She is grossly intact; however, she has severe osteoarthritis of both knee joints, status post hemiarthroplasty. She is mostly wheelchair bound. LABORATORY DATA: Her most recent lab work showed a white cell count of 7900, hemoglobin 11, hematocrit 34, MCV 83, and platelet count 345,000. Her chemistry showed a serum sodium 138, potassium 4.5, chloride 102, bicarbonate 26, anion gap of 10, BUN 25, creatinine 0.8, estimated GFR was 72 mL per minute. Her glucose 121, calcium was 9.6. Total bilirubin, AST, ALT, alkaline phosphatase were normal. Total protein 7, albumin 3.1. Her chest x-ray showed the patient has hazy right lung infiltrate, probable left pleural effusion and atelectasis consolidated infiltrate, right lung base and therefore we did order a CT angio of the chest, which basically showed that the heart size is normal, no pericardial effusion, mild coronary artery ____, thoracic aorta has a normal course and caliber. Pulmonary artery is not enlarged. The airways are patent. No consolidation, no pneumothorax, no suspicious lung nodules identified. There are interstitial opacities in the right lung base, likely representing scarring. There is a moderate sized left sided pleural effusion with adjacent atelectasis. Visualized upper abdomen is unremarkable. 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 We ordered stat PT, INR and aPTT and when all stay normal, the radiologist will proceed with the thoracentesis. She will be transferred tomorrow to [address] [place] [address] for post-procedure monitoring. I did put orders for labs, particularly for the pleural fluid to be sent for cytology, cell count and differential. We are also sending it for total protein and albumin, glucose, LDH and pH also of the pleural fluid. NICK ANDERSEN MD DR: VIK/radha JOB#: [id number] / [id number]
[2020-06-20 06:32] VITALS: BP 153/77
[2020-06-20 07:16] LABS: BASO # 0.1 x10^3/uL (0.0-0.2); BASO % 1 % (0-3); EOS # 0.5 x10^3/uL (0.0-0.7); EOS % 7 % (0-3); HEMOGLOBIN 11.4 g/dL (12.0-15.5); LYMPH # 1.1 x10^3/uL (1.0-4.8); LYMPH % 15 % (24-48); MEAN CORPUSCULAR HEMOGLOBIN 27 pg (25-35); MEAN CORPUSCULAR HGB CONC 33 g/dL (31-37); MEAN CORPUSCULAR VOLUME 82 fL (79-100); MONO # 0.5 x10^3/uL (0.0-1.1); MONO % 7 % (0-9); NEUT # 5.1 x10^3uL (1.8-7.7); NEUT % 70 % (31-73); PLATELET COUNT 341 x10^3/uL (140-400); RED BLOOD COUNT 4.26 x10^6/uL (3.50-5.40); RED CELL DISTRIBUTION WIDTH 16.3 % (11.5-14.5); WHITE BLOOD COUNT 7.3 x10^3/uL (4.0-11.0)
[2020-06-20 07:18] VITALS: BP 153/77
[2020-06-20] MEDS: FLUoxetine HCL 20 MG CAPSULE PO SCH (07:18)
[2020-06-20] MEDS: PANTOPRAZOLE 40 MG TABLET. PO SCH (07:18)
[2020-06-20] MEDS: NON FORMULARY ITEM (Olodaterol HCl (Striverdi Respimat) 4 GM) IH SCH (07:18)
[2020-06-20] MEDS: ISOSORBIDE MONONITRATE ER 30 MG TAB.ER.24H PO SCH (07:18)
[2020-06-20] MEDS: QUEtiapine 100 MG TABLET. PO SCH (07:18)
[2020-06-20] MEDS: SALSALATE 500 MG PO SCH (07:18)
[2020-06-20] MEDS: amLODIPine BESYLATE 5 MG TABLET PO SCH (07:19)
[2020-06-20] MEDS: ASPIRIN ENTERIC COATED 81 MG TABLET.DR. PO SCH (07:19)
[2020-06-20] MEDS: ARIPiprazole 15 MG TABLET PO SCH (07:19)
[2020-06-20] MEDS: METOPROLOL TART IMMED RELEASE 25 MG TABLET. PO SCH (07:19)
[2020-06-20] MEDS: hydrOXYzine HCL 25 MG TABLET PO SCH (07:19)
[2020-06-20] MEDS: DOCUSATE SODIUM 100 MG CAPSULE PO SCH (07:19)
[2020-06-20] MEDS: POTASSIUM CHLORIDE 10 MEQ TABLET.ER. PO SCH (07:19)
[2020-06-20] MEDS: LIRAGLUTIDE 1.8 MG SQ SCH (07:19)
[2020-06-20] MEDS: SENNOSIDES 8.6 MG TABLET PO SCH (07:20)
[2020-06-20] MEDS: MINERAL OIL/PETROLATUM TOPICAL CREAM 113GM JAR. TP SCH (07:20)
[2020-06-20] MEDS: CALCIUM CARB/VIT D3 500/200 TABLET PO SCH (07:20)
--- NOTE | 2020-06-20 07:36 | PDOC ---
Exam Note: [place] Note: This note is a late entry for 06/19/2020 covers elements not covered in my initial note. Subjective: The patient was seen individually in the evening of 06/19/2020 with Fatoumata Lee RN, discussed and reviewed the chart. The patient just slept 5- 3/4 hours previous night. Per nursing report Dr[facility] due to her pleural effusion. She remains hyperverbal, somewhat hypomanic, distractible. Review of Systems: Ambulation impaired in walker. Positive for shortness of breath. No CV, , eye system symptoms on review. Mental Status Exam: The patient is oriented to herself and situation. She continues to have rapid speech, somewhat distractible, anxious. Abstraction fair. Computation impaired. Language function intact. Attention span short. Mood and affect remains anxious, labile. No suicidal or homicidal ideation. She remains somewhat paranoid. Laboratory Data: Reviewed. Impression: Schizoaffective disorder, bipolar type, depressed with psychotic features. Anxiety disorder unspecified. Impulse control disorder unspecified. Pleural effusion, defer to Dr. Lowe. Plan: No change from initial note. Once she is medically stable and if manic symptoms persist, we will consider further adjustments in her psychotropics once she returns to us. Assessment: Vital Signs/I&O: Vital Signs Date Time Temp Pulse Resp B/P (MAP) Pulse Ox O2 Delivery O2 Flow Rate FiO2 06/20/20 07:18 60 153/77 06/20/20 06:32 96.9 18 63 06/18/20 15:30 Room Air I & O 06/19/20 06/19/20 06/20/20 15:00 23:00 07:00 Intake Total 480 ml 360 ml Balance 480 ml 360 ml Labs: Laboratory Tests Test 06/19/20 13:50 Prothrombin Time 9.7 SEC (9.4-11.4) Prothrombin Time INR 0.9 (0.9-1.1) Activated Partial Thromboplast Time 26 SEC (23-33) Current Medications: Meds: Laboratory Tests Test 06/19/20 13:50 Prothrombin Time 9.7 SEC Prothromb Time International Ratio 0.9 Activated Partial Thromboplast Time 26 SEC Current Medications Medications (Trade) Dose Ordered Sig/Indra Route PRN Reason Start Time Stop Time Status Last Admin Dose Admin Acetaminophen (Tylenol) 650 mg PRN Q6HRS PRN PO MILD PAIN / TEMP > 100.3'F 06/07/20 16:30 06/19/20 05:00 Multi-Ingredient Ointment (Analgesic [place]) 1 joesph PRN QID PRN TP MUSCLE PAIN 06/07/20 16:30 Al Hydroxide/Mg Hydroxide (Mylanta Plus Xs) 15 ml PRN AFTMEALHC PRN PO DYSPEPSIA 06/07/20 16:30 Magnesium Hydroxide (Milk Of Magnesia) 2,400 mg PRN QHS PRN PO CONSTIPATION 2nd choice 06/07/20 16:30 Acetaminophen (Tylenol) 500 mg PRN Q6HRS PRN PO pain or fever 06/07/20 16:30 06/07/20 17:22 DC Albuterol Sulfate (Ventolin) 205 mg PRN Q4HRS PRN IH FOR ASTHMA 06/07/20 16:30 06/07/20 18:21 DC Amlodipine Besylate (Norvasc) 5 mg DAILY PO 06/08/20 09:00 06/19/20 07:47 Aripiprazole (Abilify) 15 mg DAILY PO 06/08/20 09:00 06/19/20 07:45 Aspirin (Aspirin Enteric Coated) 81 mg DAILY PO 06/08/20 09:00 06/19/20 07:44 Atorvastatin Calcium (Lipitor) 20 mg QHS PO 06/07/20 21:00 06/19/20 19:53 Calcium/Vitamin D (Oscal D 500mg/ 200uts) 1 tab BID PO 06/07/20 21:00 06/19/20 19:51 Clonazepam (KlonoPIN) 0.5 mg PRN BID PRN PO ANXIETY / AGITATION 06/07/20 16:30 06/19/20 15:33 Diclofenac Sodium (Voltaren) 2 joesph QID TP 06/07/20 17:00 06/15/20 11:53 DC 06/14/20 22:11 Docusate Sodium (Colace) 100 mg BID PO 06/07/20 21:00 06/19/20 19:50 Furosemide (Lasix) 20 mg DAILY16 PO 06/08/20 16:00 06/19/20 15:34 Hydroxyzine HCl (Atarax) 25 mg TID PO 06/07/20 21:00 06/19/20 19:52 Isosorbide Mononitrate (Imdur) 30 mg DAILY08 PO 06/08/20 08:00 06/19/20 07:44 Ketoconazole (Nizoral 2% Shampoo) 1 joesph PRN DAILY PRN TP itching on scalp 06/07/20 16:30 Levothyroxine Sodium (Synthroid) 50 mcg DAILY06 PO 06/08/20 06:00 06/18/20 15:58 DC 06/18/20 04:19 Metoprolol Tartrate (Lopressor) 12.5 mg BID PO 06/07/20 21:00 06/19/20 19:52 Pantoprazole Sodium (Protonix) 40 mg DAILY08 PO 06/08/20 08:00 06/19/20 07:45 Ropinirole HCl (Requip) 0.5 mg QHS PO 06/07/20 21:00 06/19/20 19:51 Salsalate (Salsalate) 1,500 mg 0800 PO 06/08/20 08:00 06/19/20 07:48 Salsalate (Salsalate) 1,000 mg 2100 PO 06/08/20 21:00 06/19/20 20:12 Sennosides (Senna) 8.6 mg BID76 PO 06/07/20 18:00 06/10/20 05:35 DC 06/09/20 16:50 Tramadol HCl (Ultram) 50 mg PRN Q6HRS PRN PO mod-sev pain 06/07/20 16:30 06/18/20 23:54 Triamcinolone Acetonide (Kenalog) 1 joesph PRN Q12HR PRN TP itching 06/07/20 16:30 Multi-Ingred Cream/Lotion/Oil/ Oint (Hydrocerin) 1 joesph BID TP 06/07/20 21:00 06/19/20 09:00 Fluoxetine HCl (PROzac) 80 mg DAILY08 PO 06/08/20 08:00 06/19/20 07:47 Non-Formulary Medication (Liraglutide (Saxenda)) 1.8 mg 0800 SQ 06/08/20 08:00 UNV Melatonin (Melatonin) 3 mg QHS PO 06/07/20 21:00 06/19/20 19:51 Non-Formulary Medication (Olodaterol HCl (Striverdi Respimat)) 4 gm DAILY08 IH 06/08/20 08:00 UNV Potassium Chloride (Klor-Con) 10 meq TID PO 06/07/20 21:00 06/19/20 19:51 Quetiapine Fumarate (SEROquel) 300 mg DAILY08 PO 06/08/20 08:00 06/19/20 07:45 Quetiapine Fumarate (SEROquel) 600 mg QHS PO 06/07/20 21:00 06/19/20 19:50 Vitamin A/Vitamin D (Vitamin A & D Ointment) 1 joesph PRN Q1HR PRN TP SKIN PROTECTION 06/07/20 17:45 Albuterol Sulfate (Ventolin Hfa Inhaler) 1 puff PRN Q4HRS PRN INH SHORTNESS OF BREATH 06/07/20 18:30 Sennosides (Senna) 8.6 mg BID PO 06/10/20 09:00 06/19/20 19:50 Polyethylene Glycol (miraLAX) 17 gm PRN DAILY PRN PO CONSTIPATION 1st choice 06/11/20 11:00 Diclofenac Sodium (Voltaren) 2 joesph PRN QID PRN TP PAIN 06/15/20 12:00 Divalproex Sodium (Depakote Er) 500 mg QHS PO 06/17/20 21:00 06/19/20 19:51 Levothyroxine Sodium (Synthroid) 75 mcg DAILY06 PO 06/19/20 06:00 06/19/20 05:16 Vitamin D (Vitamin D3) 50,000 unit WEEKLY PO 06/18/20 16:30 06/18/20 16:58 Cyanocobalamin (Vitamin B-12) 1,000 mcg Q4WK IM 06/19/20 09:00 06/19/20 09:17 Iohexol (Omnipaque 350 Mg/ml) 100 ml 1X ONCE IV 06/18/20 16:15 06/18/20 16:21 DC 06/18/20 16:29 Current Medications Medications (Trade) Dose Ordered Sig/Indra Route PRN Reason Start Time Stop Time Status Last Admin Dose Admin Cyanocobalamin (Vitamin B-12) 1,000 mcg Q4WK IM 06/19/20 09:00 06/19/20 09:17 I have reviewed the current psychotropics carefully including drug interactions. Risk benefit ratio favors no change other than as noted in my dictated progress note. Diagnosis: Problems: (1) Schizoaffective disorder, bipolar type (2) Anxiety disorder, unspecified (3) Bipolar disorder, current episode depressed, severe, with psychotic features (4) Impulse control disorder, unspecified MICHAEL CLARK MD Jun 20, 2020 07:36
[2020-06-20 07:39] LABS: ALBUMIN 3.4 g/dL (3.4-5.0); ALBUMIN/GLOBULIN RATIO 0.9 (1.0-1.7); ALK PHOS 103 U/L (46-116); ALT (SGPT) 25 U/L (14-59); ANION GAP 8 (6-14); AST (SGOT) 21 U/L (15-37); BLOOD UREA NITROGEN 16 mg/dL (7-20); BUN/CREATININE RATIO 18 (6-20); CALCIUM 9.4 mg/dL (8.5-10.1); CARBON DIOXIDE 27 mmol/L (21-32); CHLORIDE 100 mmol/L (98-107); CREATININE 0.9 mg/dL (0.6-1.0); GFR 62.6; GLUCOSE 86 mg/dL (70-99); POTASSIUM 4.3 mmol/L (3.5-5.1); SODIUM 135 mmol/L (136-145); TOTAL BILIRUBIN 0.3 mg/dL (0.2-1.0); TOTAL PROTEIN 7.4 g/dL (6.4-8.2)
[2020-06-20 08:11] LABS: VAL ACID 36 mcg/mL (50-100)
--- NOTE | 2020-06-20 10:04 | NUR ---
Transition Record was faxed to follow-up provider with the following elements: Reason for admission, procedures, tests, principal diagnosis, pending studies, patient instructions, 29/09 contact information for unit, phone number to obtain pending test results, plan for follow-up care, physician follow-up, advanced directive information, and medication list with dose, duration and instructions. This information was included in the following documents: History and physical, lab results, study results, progress notes, social work planning form, DC instruction form, patient visit summary, and medication reconciliation form. Date & time record faxed: 06/20 Record faxed to: 06/20 Record discussed with/ report given to: nolan castro icu
--- NOTE | 2020-06-20 11:26 | NUR ---
Wound Care Wound Type/Assessment: patient seen per wound care follow up. see wound assessment. patient has IAD to the bilateral buttocks that appears to be healing, a very small open area to the right buttock, this area was cleaned, measured, pictured and redressed with Calazime cream. Wound has greatly improved and is almost healed. The area to the left flank is now healed. Treatment Recommendations/Plan: Recommendations to continue with Calazime cream as needed. Patient has a wheelchair cushion. Discharge Recommendations for dressings: Continue current treatment until healed. Patient assisted back to chair and wound care will follow up in one week for reassessment.
--- NOTE | 2020-06-20 22:09 | PDOC ---
Exam Note: [place] Note: Please also refer to the separate dictated note~for this date of service dictated separately.~Patient seen individually. Discussed the patient with Nursing staff reviewed the chart.~Reviewed interim history and current functioning. Reviewed vital signs,~Labs/ Radiology~and current medications noted below. Continue current treatment with the changes noted in the dictated addendum note Assessment: Vital Signs/I&O: Vital Signs Date Time Temp Pulse Resp B/P (MAP) Pulse Ox O2 Delivery O2 Flow Rate FiO2 06/20/20 07:18 60 153/77 06/20/20 06:32 96.9 18 63 06/18/20 15:30 Room Air I & O 06/19/20 06/19/20 06/20/20 15:00 23:00 07:00 Intake Total 480 ml 360 ml Balance 480 ml 360 ml Labs: Laboratory Tests Test 06/20/20 07:00 White Blood Count 7.3 x10^3/uL (4.0-11.0) Red Blood Count 4.26 x10^6/uL (3.50-5.40) Hemoglobin 11.4 g/dL (12.0-15.5) L Hematocrit 35.0 % (36.0-47.0) L Mean Corpuscular Volume 82 fL (79-100) Mean Corpuscular Hemoglobin 27 pg (25-35) Mean Corpuscular Hemoglobin Concent 33 g/dL (31-37) Red Cell Distribution Width 16.3 % (11.5-14.5) H Platelet Count 341 x10^3/uL (140-400) Neutrophils (%) (Auto) 70 % (31-73) Lymphocytes (%) (Auto) 15 % (24-48) L Monocytes (%) (Auto) 7 % (0-9) Eosinophils (%) (Auto) 7 % (0-3) H Basophils (%) (Auto) 1 % (0-3) Neutrophils # (Auto) 5.1 x10^3uL (1.8-7.7) Lymphocytes # (Auto) 1.1 x10^3/uL (1.0-4.8) Monocytes # (Auto) 0.5 x10^3/uL (0.0-1.1) Eosinophils # (Auto) 0.5 x10^3/uL (0.0-0.7) Basophils # (Auto) 0.1 x10^3/uL (0.0-0.2) Prothrombin Time 10.1 SEC (9.4-11.4) Prothrombin Time INR 1.0 (0.9-1.1) Activated Partial Thromboplast Time 26 SEC (23-33) Sodium Level 135 mmol/L (136-145) L Potassium Level 4.3 mmol/L (3.5-5.1) Chloride Level 100 mmol/L (98-107) Carbon Dioxide Level 27 mmol/L (21-32) Anion Gap 8 (6-14) Blood Urea Nitrogen 16 mg/dL (7-20) Creatinine 0.9 mg/dL (0.6-1.0) Estimated GFR (Cockcroft-Gault) 62.6 BUN/Creatinine Ratio 18 (6-20) Glucose Level 86 mg/dL (70-99) Calcium Level 9.4 mg/dL (8.5-10.1) Total Bilirubin 0.3 mg/dL (0.2-1.0) Aspartate Amino Transferase (AST) 21 U/L (15-37) Alanine Aminotransferase (ALT) 25 U/L (14-59) Alkaline Phosphatase 103 U/L (46-116) Total Protein 7.4 g/dL (6.4-8.2) Albumin 3.4 g/dL (3.4-5.0) Albumin/Globulin Ratio 0.9 (1.0-1.7) L Valproic Acid Level 36 mcg/mL (50-100) L Valproic Acid Last Dose Date 06/19/20 Valproic Acid Last Dose Time 2100 Current Medications: Meds: Laboratory Tests Test 06/20/20 07:00 White Blood Count 7.3 x10^3/uL Red Blood Count 4.26 x10^6/uL Hemoglobin 11.4 g/dL Hematocrit 35.0 % Mean Corpuscular Volume 82 fL Mean Corpuscular Hemoglobin 27 pg Mean Corpuscular Hemoglobin Concent 33 g/dL Red Cell Distribution Width 16.3 % Platelet Count 341 x10^3/uL Neutrophils (%) (Auto) 70 % Lymphocytes (%) (Auto) 15 % Monocytes (%) (Auto) 7 % Eosinophils (%) (Auto) 7 % Basophils (%) (Auto) 1 % Neutrophils # (Auto) 5.1 x10^3uL Lymphocytes # (Auto) 1.1 x10^3/uL Monocytes # (Auto) 0.5 x10^3/uL Eosinophils # (Auto) 0.5 x10^3/uL Basophils # (Auto) 0.1 x10^3/uL Prothrombin Time 10.1 SEC Prothromb Time International Ratio 1.0 Activated Partial Thromboplast Time 26 SEC Sodium Level 135 mmol/L Potassium Level 4.3 mmol/L Chloride Level 100 mmol/L Carbon Dioxide Level 27 mmol/L Anion Gap 8 Blood Urea Nitrogen 16 mg/dL Creatinine 0.9 mg/dL Estimated GFR (Cockcroft-Gault) 62.6 BUN/Creatinine Ratio 18 Glucose Level 86 mg/dL Calcium Level 9.4 mg/dL Total Bilirubin 0.3 mg/dL Aspartate Amino Transf (AST/SGOT) 21 U/L Alanine Aminotransferase (ALT/SGPT) 25 U/L Alkaline Phosphatase 103 U/L Total Protein 7.4 g/dL Albumin 3.4 g/dL Albumin/Globulin Ratio 0.9 Valproic Acid (Depakene) Level 36 mcg/mL Valproic Acid Last Dose Date 06/19/20 Valproic Acid Last Dose Time 2100 Current Medications Medications (Trade) Dose Ordered Sig/Indra Route PRN Reason Start Time Stop Time Status Last Admin Dose Admin Acetaminophen (Tylenol) 650 mg PRN Q6HRS PRN PO MILD PAIN / TEMP > 100.3'F 06/07/20 16:30 06/20/20 10:06 DC 06/19/20 05:00 Multi-Ingredient Ointment (Analgesic [place]) 1 joesph PRN QID PRN TP MUSCLE PAIN 06/07/20 16:30 06/20/20 10:06 DC Al Hydroxide/Mg Hydroxide (Mylanta Plus Xs) 15 ml PRN AFTMEALHC PRN PO DYSPEPSIA 06/07/20 16:30 06/20/20 10:06 DC Magnesium Hydroxide (Milk Of Magnesia) 2,400 mg PRN QHS PRN PO CONSTIPATION 2nd choice 06/07/20 16:30 06/20/20 10:06 DC Acetaminophen (Tylenol) 500 mg PRN Q6HRS PRN PO pain or fever 06/07/20 16:30 06/07/20 17:22 DC Albuterol Sulfate (Ventolin) 205 mg PRN Q4HRS PRN IH FOR ASTHMA 06/07/20 16:30 06/07/20 18:21 DC Amlodipine Besylate (Norvasc) 5 mg DAILY PO 06/08/20 09:00 06/20/20 10:06 DC 06/19/20 07:47 Aripiprazole (Abilify) 15 mg DAILY PO 06/08/20 09:00 06/20/20 10:06 DC 06/19/20 07:45 Aspirin (Aspirin Enteric Coated) 81 mg DAILY PO 06/08/20 09:00 06/20/20 10:06 DC 06/19/20 07:44 Atorvastatin Calcium (Lipitor) 20 mg QHS PO 06/07/20 21:00 06/20/20 10:06 DC 06/19/20 19:53 Calcium/Vitamin D (Oscal D 500mg/ 200uts) 1 tab BID PO 06/07/20 21:00 06/20/20 10:06 DC 06/19/20 19:51 Clonazepam (KlonoPIN) 0.5 mg PRN BID PRN PO ANXIETY / AGITATION 06/07/20 16:30 06/20/20 10:06 DC 06/19/20 15:33 Diclofenac Sodium (Voltaren) 2 joesph QID TP 06/07/20 17:00 06/15/20 11:53 DC 06/14/20 22:11 Docusate Sodium (Colace) 100 mg BID PO 06/07/20 21:00 06/20/20 10:06 DC 06/19/20 19:50 Furosemide (Lasix) 20 mg DAILY16 PO 06/08/20 16:00 06/20/20 10:06 DC 06/19/20 15:34 Hydroxyzine HCl (Atarax) 25 mg TID PO 06/07/20 21:00 06/20/20 10:06 DC 06/19/20 19:52 Isosorbide Mononitrate (Imdur) 30 mg DAILY08 PO 06/08/20 08:00 06/20/20 10:06 DC 06/19/20 07:44 Ketoconazole (Nizoral 2% Shampoo) 1 joesph PRN DAILY PRN TP itching on scalp 06/07/20 16:30 06/20/20 10:06 DC Levothyroxine Sodium (Synthroid) 50 mcg DAILY06 PO 06/08/20 06:00 06/18/20 15:58 DC 06/18/20 04:19 Metoprolol Tartrate (Lopressor) 12.5 mg BID PO 06/07/20 21:00 06/20/20 10:06 DC 06/19/20 19:52 Pantoprazole Sodium (Protonix) 40 mg DAILY08 PO 06/08/20 08:00 06/20/20 10:06 DC 06/19/20 07:45 Ropinirole HCl (Requip) 0.5 mg QHS PO 06/07/20 21:00 06/20/20 10:06 DC 06/19/20 19:51 Salsalate (Salsalate) 1,500 mg 0800 PO 06/08/20 08:00 06/20/20 10:06 DC 06/19/20 07:48 Salsalate (Salsalate) 1,000 mg 2100 PO 06/08/20 21:00 06/20/20 10:06 DC 06/19/20 20:12 Sennosides (Senna) 8.6 mg BID76 PO 06/07/20 18:00 06/10/20 05:35 DC 06/09/20 16:50 Tramadol HCl (Ultram) 50 mg PRN Q6HRS PRN PO mod-sev pain 06/07/20 16:30 06/20/20 10:06 DC 06/18/20 23:54 Triamcinolone Acetonide (Kenalog) 1 joesph PRN Q12HR PRN TP itching 06/07/20 16:30 06/20/20 10:06 DC Multi-Ingred Cream/Lotion/Oil/ Oint (Hydrocerin) 1 joesph BID TP 06/07/20 21:00 06/20/20 10:06 DC 06/19/20 09:00 Fluoxetine HCl (PROzac) 80 mg DAILY08 PO 06/08/20 08:00 06/20/20 10:06 DC 06/19/20 07:47 Non-Formulary Medication (Liraglutide (Saxenda)) 1.8 mg 0800 SQ 06/08/20 08:00 06/20/20 10:06 DC Melatonin (Melatonin) 3 mg QHS PO 06/07/20 21:00 06/20/20 10:06 DC 06/19/20 19:51 Non-Formulary Medication (Olodaterol HCl (Striverdi Respimat)) 4 gm DAILY08 IH 06/08/20 08:00 06/20/20 10:06 DC Potassium Chloride (Klor-Con) 10 meq TID PO 06/07/20 21:00 06/20/20 10:06 DC 06/19/20 19:51 Quetiapine Fumarate (SEROquel) 300 mg DAILY08 PO 06/08/20 08:00 06/20/20 10:06 DC 06/19/20 07:45 Quetiapine Fumarate (SEROquel) 600 mg QHS PO 06/07/20 21:00 06/20/20 10:06 DC 06/19/20 19:50 Vitamin A/Vitamin D (Vitamin A & D Ointment) 1 joesph PRN Q1HR PRN TP SKIN PROTECTION 06/07/20 17:45 06/20/20 10:06 DC Albuterol Sulfate (Ventolin Hfa Inhaler) 1 puff PRN Q4HRS PRN INH SHORTNESS OF BREATH 06/07/20 18:30 06/20/20 10:06 DC Sennosides (Senna) 8.6 mg BID PO 06/10/20 09:00 06/20/20 10:06 DC 06/19/20 19:50 Polyethylene Glycol (miraLAX) 17 gm PRN DAILY PRN PO CONSTIPATION 1st choice 06/11/20 11:00 06/20/20 10:06 DC Diclofenac Sodium (Voltaren) 2 joesph PRN QID PRN TP PAIN 06/15/20 12:00 06/20/20 10:06 DC Divalproex Sodium (Depakote Er) 500 mg QHS PO 06/17/20 21:00 06/20/20 10:06 DC 06/19/20 19:51 Levothyroxine Sodium (Synthroid) 75 mcg DAILY06 PO 06/19/20 06:00 06/20/20 10:06 DC 06/19/20 05:16 Vitamin D (Vitamin D3) 50,000 unit WEEKLY PO 06/18/20 16:30 06/20/20 10:06 DC 06/18/20 16:58 Cyanocobalamin (Vitamin B-12) 1,000 mcg Q4WK IM 06/19/20 09:00 06/20/20 10:06 DC 06/19/20 09:17 Iohexol (Omnipaque 350 Mg/ml) 100 ml 1X ONCE IV 06/18/20 16:15 06/18/20 16:21 DC 06/18/20 16:29 I have reviewed the current psychotropics carefully including drug interactions. Risk benefit ratio favors no change other than as noted in my dictated progress note. Diagnosis: Problems: (1) Schizoaffective disorder, bipolar type (2) Anxiety disorder, unspecified (3) Bipolar disorder, current episode depressed, severe, with psychotic features (4) Impulse control disorder, unspecified MICHAEL CLARK MD Jun 20, 2020 22:09
--- NOTE | 2020-06-20 22:54 | DS ---
DATE OF DISCHARGE: 06/20/2020 DISCHARGE SUMMARY/PSYCHIATRIC PROGRESS NOTE This note covers elements not covered in my initial note 06/20/2020. REASON FOR ADMISSION: Please refer to the admission history for details. Briefly, the patient is a 64-year-old female referred to us from [facility] on account of an acute exacerbation of her schizoaffective disorder, bipolar type, depressed. The patient had been hitting herself in the head with her cane, was paranoid, having auditory hallucinations, anxious, made statements "I want to end this." She had failed outpatient psychiatric interventions resulting in this referral. SIGNIFICANT FINDINGS AND CLINICAL COURSE: Following admission, the patient was seen daily individually by myself from a psychiatric standpoint, medical followup with Dr. Lowe/Dr. Ryan. The patient was extremely agitated, paranoid, psychotic, with marked mood lability. Adjustments were made in her psychotropics and she seemed to be responding gradually to Abilify 15 mg a day, Klonopin 0.5 mg b.i.d. p.r.n., Prozac 40 mg a day, Seroquel 300 mg daily, 600 mg at bedtime, Requip was at 0.5 mg at bedtime. Depakote ER initiated 500 mg at bedtime. At this stage, she seemed to have worsening of her pleural effusion within the context of her history of lung cancer, status post lobectomy and she was transferred to [address] [place] [address] Medical/Surgical services for a thoracocentesis. REVIEW OF SYSTEMS: Prior to discharge, complained of impaired ambulation. Some difficulty with breathing. No CV, GI, , eye system symptoms on review. MENTAL STATUS EXAM: Oriented to herself and situation. Speech rapid at times, coherent, abstraction fair, computation impaired, language function intact, quite distractible. No suicidal or homicidal ideation. FINAL DIAGNOSES: Schizoaffective disorder, bipolar type, mixed with psychotic features; anxiety disorder, unspecified; impulse control disorder, unspecified. DISCHARGE MEDICATIONS: Please refer to the MRAD. We will consider readmitting patient on our unit if she still meets criteria once she is medically stabilized post thoracocentesis. Time for discharge day management greater than 30 minutes. MICHAEL CLARK MD DR: DEEPTHI/radha JOB#: [id number] / [id number]
[2020-06-21] MEDS ORDERED: DIVA500T2 PO (17:48)
== END 2020-06-20 10:06 | disposition short-term general hospital (02) | DRG 885 ==
LOC: GEROPSY 15:55
PROVIDERS: ADMIT Psychiatry & Neurology Psychiatry; ATTEND Psychiatry & Neurology Psychiatry
DX: F25.0 Schizoaffective disorder, bipolar type (principal); R45.851 Suicidal ideations; J98.11 Atelectasis; E78.5 Hyperlipidemia, unspecified; E03.9 Hypothyroidism, unspecified; J44.9 Chronic obstructive pulmonary disease, unspecified; I10 Essential (primary) hypertension; G89.29 Other chronic pain; F41.9 Anxiety disorder, unspecified; F63.9 Impulse disorder, unspecified; H66.90 Otitis media, unspecified, unspecified ear; K21.9 Gastro-esophageal reflux disease without esophagitis; M19.90 Unspecified osteoarthritis, unspecified site; R29.6 Repeated falls; S80.01XA Contusion of right knee, initial encounter; F10.20 Alcohol dependence, uncomplicated; F17.200 Nicotine dependence, unspecified, uncomplicated; Z96.659 Presence of unspecified artificial knee joint; Z55.9 Problems related to education and literacy, unspecified; Z59.9 Problem related to housing and economic circumstances, unspecified; Z79.899 Other long term (current) drug therapy; Z85.118 Personal history of other malignant neoplasm of bronchus and lung; Z88.8 Allergy status to other drugs, medicaments and biological substances; Z81.1 Family history of alcohol abuse and dependence; Y93.89 Activity, other specified; Y92.89 Other specified places as the place of occurrence of the external cause; Y99.8 Other external cause status
CPT/HCPCS: 36415; 71046; 71275; 73562; 80053; 80061; 80164; 81001; 82306; 82607; 83036; 83540; 83550; 83735; 84436; 84443; 84480; 85025; 85379; 85610; 85730; 86592; 87077; 87086; 87186; 93005; J3420; Q9967; 97110; 97116; 97530; 97535

== ENCOUNTER 2020-06-20 10:06 | Observation (INO) | payer MEDICARE ==
[~2020-06-20] VITALS: Ht 157.5 cm; Wt 93.4 kg
[2020-06-20] VITALS (8 sets, daily range): BP systolic 105–148; BP diastolic 55–66
[~2020-06-20 10:06] MED LIST: ACET500T68 PO; ALBU2.5V8 IH; AMLO-186 PO; ARIP15TA36 PO; ASPI-889 PO; ATOR20TA58 PO; CALC-56 PO; CHOL500021 PO; CLON0.5T4 PO; CYAN10002 IM; DICL100G18 TP; DOCU-109 PO; EMOL85CR TP; FLUO40CA9 PO; FURO20TA3 PO; HYDR25TA PO; ISOS30TA68 PO; KETO120S4 TP; LEVO50TA72 PO; LIRA3PEN SQ; MELA3TAB30 PO; METO25TA4 PO; OLOD4MIS2 IH; PANT40TA6 PO; POTA10TA5 PO; QUET300T5 PO; ROPI0.25 PO; SALS500T11 PO; SENN8.6T11 PO; TRAM50TA PO; TRIA15OI TP; VITS42.55 TP
[2020-06-20] MEDS ORDERED: HALOPERIDOL LACT 5 MG/ML VIAL. IVP ONE (10:45)
--- NOTE | 2020-06-20 11:00 | NUR ---
Pt admitted from [facility] for scheduled thoracentesis, pt is alert and calm. All belongings received, except for locked valuables and money, brother updated by doctor Connor, condition and reviewed plan of care.
--- NOTE | 2020-06-20 12:35 | RAD ---
US THORACENTESIS LOCAL LEFT History:Reason: left pleural effusion / Spl. Instructions: 500 ml removed, Comparison: None Technique: After discussing the risk and benefits of the procedure, the patient signed a written cons ent form for ultrasound guided thoracentesis of left pleural effusion. Appropriate relevant laborator y findings were reviewed prior to the exam. Initial ultrasound examination of the left hemithorax dem onstrated the presence of a left pleural effusion. External skin site was prepped and draped in the u sual sterile fashion at the planned site of access. ChloraPrep was utilized for cleansing solution. 1 % percent lidocaine was utilized for local anesthesia. Blunt needle set was utilized to access the pl eural effusion. Subsequently fluid was aspirated utilizing vacuum bottles. A total of approximately 5 00 mL of serosanguineous fluid removed. Catheter was removed. There were no immediate complications. Findings: There was 100 mL yellow serous pleural fluid. Impression: 1. Successful ultrasound-guided left thoracentesis without immediate complication. Electronically signed by: Frank Jackson DO (06/20/2020 12:33 PM) [id number]
--- NOTE | 2020-06-20 13:51 | RAD ---
EXAM: XR CHEST 1V 06/20/2020 1:25 PM CLINICAL INDICATION: Post left thoracentesis COMPARISON: Chest radiograph 06/13/[address] chest 06/18/2020 TECHNIQUE: AP upright view the chest FINDINGS: Left pleural effusion has mildly decreased in size. There is no pneumothorax. Bilateral op acities are unchanged. The cardiac silhouette is stable. No acute osseous abnormality. IMPRESSION: Decreased left pleural effusion. No pneumothorax. Electronically signed by: Mariaelena Bruce MD (06/20/2020 1:48 PM) [id number]
[2020-06-20] MEDS ORDERED: KETOCONAZOLE 2% SHAMPOO 120ML BOTTLE. TP PRN (14:15)
[2020-06-20] MEDS ORDERED: traMADol 50 MG TABLET PO PRN (14:15)
[2020-06-20] MEDS ORDERED: ALBUTEROL SULFATE 2.5 MG/3 ML NEBU. IH PRN (14:15)
[2020-06-20] MEDS ORDERED: VITS A & D/LANOLIN TOPICAL OINTMENT 42GM TUBE. TP PRN (14:15)
[2020-06-20] MEDS ORDERED: ACETAMINOPHEN 500 MG TABLET PO PRN (14:15)
[2020-06-20] MEDS ORDERED: TRIAMCINOLONE ACETONIDE 0.1% TOPICAL OINTMENT 15GM TUBE. TP PRN (14:15)
--- NOTE | 2020-06-20 14:45 | HP ---
ADMIT DATE: 06/20/2020 ATTENDING PHYSICIAN: Dr. Bradford. HISTORY OF PRESENT ILLNESS: We are asked to admit this patient from the [facility]. The patient is a 64-year-old female well known to me when I saw her in consultation upstairs in the [facility] unit. She is 64 years old and she has underlying schizoaffective disorder and major depression, necessitating admission there. The medical issue at hand is she had a thoracoscopy done at [facility] in [place] for left upper lobe lesion. We estimated that the procedure was done at the end of May. She was then hospitalized post-procedure 06/07, I saw her in consultation. Since that time, she has gotten progressively short of breath. Dr. Lowe has seen her in consultation in this last week and ordered repeat CT of the chest. There is a moderate size pleural effusion extending mcfp up to left hemithorax. She is scheduled today to have Interventional Radiology do a palliative and diagnostic thoracentesis under ultrasound guidance. Please note that the biopsy report of the thoracoscopy revealed squamous cell carcinoma, poorly differentiated. At that time, the staging was in the process of getting done, 5 separate lymph nodes were sent for pathology. No metastatic disease identified; however, with the anglican of pleural effusion, most likely this is malignant, that changes the staging process. She will have cytology done on today's specimen. PAST MEDICAL HISTORY: Also significant for COPD, heavy smoker along with her psychiatric issues. She also has hyperlipidemia and hypothyroidism, on replacement. CURRENT MEDICATIONS: Include Tylenol, aluminum hydroxide, albuterol, amlodipine, Abilify, aspirin, Lipitor, calcium, Klonopin, Voltaren, Colace, Prozac, Lasix, Atarax, Imdur, ketaconazole, Synthroid, magnesium, melatonin, metoprolol, Protonix, potassium, Seroquel, Requip, salsalate, senna, tramadol, triamcinolone, and vitamin A. ALLERGIES: SHE HAS ALLERGIES TO CHLORPROMAZINE, DIPHENHYDRAMINE, LISINOPRIL AND ZOCOR. Exact reaction is unclear. SOCIAL HISTORY: As noted no alcohol use. Smoker. REVIEW OF SYSTEMS: Significant for the recent left thoracoscopy done 3 weeks ago in [facility]. The pathology report of squamous cell carcinoma, poorly differentiated. No COVID exposure. She is still a smoker. All other systems reviewed, were determined to be negative. PHYSICAL EXAMINATION: GENERAL: When I saw her, this is a pleasant, middle-aged female. INITIAL VITAL SIGNS: Today, showed a blood pressure of 153/77, pulse is 60 and regular. She was afebrile, oxygen saturation adequate on room air. HEENT: Head is without trauma. Pupils are reactive. Sclerae nonicteric. Oropharynx clear. NECK: Supple, no bruits identified. LUNGS: Decreased breath sounds at bases. CARDIOVASCULAR: Showed regular heart tones. No gallops. ABDOMEN: Soft, no organomegaly. Bowel sounds are normoactive. EXTREMITIES: Show no cyanosis or edema. NEUROLOGIC: Focally intact. Affect normal. Speech is fluent. PERTINENT LABORATORY STUDIES: Most recent laboratory studies: Hemoglobin today is 11.4 g/dL, white count 7300. Electrolytes within normal range. Sodium 135, potassium 4.3 mEq, the creatinine is 0.9 mg percent. Transaminases were normal. IMAGING STUDIES: I reviewed the CT of the chest done on 06/18 and again there is moderate size left pleural effusion with adjacent atelectasis. No pulmonary embolus identified. ASSESSMENT: 1. A 64-year-old female with documented biopsy-proven squamous cell carcinoma of the left lung. 2. 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 3. Schizoaffective disorder. 4. Major depression. 5. Hypertension. 6. Hyperlipidemia. PLAN: 1. Admit to the medical floor. 2. Proceed with a diagnostic and palliative thoracentesis. 3. We shall await for cytology. 4. Continue psych meds. 5. Dr. Escalante will hopefully consult and manage her psychiatric meds. 6. I should try to contact her brother and power of employment attorney as to get guidance in terms of what to do next. She has not seen an oncologist for this. NELLY BRADFORD MD DR: MALISSA/radha JOB#: [id number] / [id number] MICHAEL Rivera MD
[2020-06-20 15:35] LABS: BF CLARITY CLOUDY; BF COLOR AMBER; BF RBC COUNT 9189; BF SOURCE THORACENTESIS; BF WBC COUNT 3334
[2020-06-20 15:36] LABS: BF MON % 90 %; BF PMN % 4 %
[2020-06-20 15:38] LABS: BF OTHER % 6 %
[2020-06-20] MEDS ORDERED: FUROSEMIDE 20 MG TABLET PO SCH (16:00)
[2020-06-20] MEDS: clonazePAM 0.5 MG TABLET PO PRN (16:13)
[2020-06-20] MEDS: DICLOFENAC SODIUM 1% TOPICAL GEL 100GM TUBE. TP SCH ×2 (17:00→21:10)
[2020-06-20] MEDS: hydrOXYzine HCL 25 MG TABLET PO SCH ×2 (17:07→21:10)
[2020-06-20] MEDS: QUEtiapine 100 MG TABLET. PO SCH (17:07)
[2020-06-20] MEDS: ARIPiprazole 15 MG TABLET PO SCH (17:08)
[2020-06-20] MEDS: FLUoxetine HCL 20 MG CAPSULE PO SCH (17:08)
[2020-06-20] MEDS ORDERED: QUEtiapine 100 MG TABLET. PO SCH (21:00)
[2020-06-20] MEDS ORDERED: SALSALATE 500 MG PO SCH (21:00)
[2020-06-20] MEDS ORDERED: ATORVASTATIN CALCIUM 20 MG TABLET PO SCH (21:00)
[2020-06-20] MEDS ORDERED: MELATONIN 3 MG TABLET PO SCH (21:00)
[2020-06-20] MEDS ORDERED: rOPINIRole 0.5 MG TABLET. PO SCH (21:00)
[2020-06-20] MEDS: MINERAL OIL/PETROLATUM TOPICAL CREAM 113GM JAR. TP SCH (21:10)
[2020-06-20] MEDS: POTASSIUM CHLORIDE 10 MEQ TABLET.ER. PO SCH (21:10)
[2020-06-20] MEDS: DOCUSATE SODIUM 100 MG CAPSULE PO SCH (21:10)
[2020-06-20] MEDS: CALCIUM CARB/VIT D3 500/200 TABLET PO SCH (21:10)
[2020-06-20] MEDS: SENNOSIDES 8.6 MG TABLET PO SCH (21:10)
[2020-06-20] MEDS: METOPROLOL TART IMMED RELEASE 25 MG TABLET. PO SCH (21:11)
[2020-06-21 02:35] VITALS: BP 128/74
[2020-06-21] MEDS: clonazePAM 0.5 MG TABLET PO PRN ×2 (03:04→12:04)
--- NOTE | 2020-06-21 05:00 | NUR ---
Pt awake in bed watching TV at change of shift. Pt is A&Ox3, occasional forgetfulness noted. Pt had left thoracentesis done earlier today, bandage C/D/I. Pt dose c/o soreness at site. Pt compliant with HS meds and very knowledgeable about her medications. Pt ate HS snack independently. Pt slept off and on during the night, with CPAP on for most of the night. Pt up to BSC with standby assist to void during shift about 4-5 times, did have BM. Pt without behaviors noted this shift, was calm and appropriate with staff. Pt stated that she "likes it down here better, I am not with all the crazy people now."
[2020-06-21 05:17] VITALS: BP 106/61
[2020-06-21] MEDS ORDERED: LEVOTHYROXINE 75 MCG TABLET PO SCH (06:00)
[2020-06-21] MEDS ORDERED: SALSALATE 500 MG PO SCH (08:00)
[2020-06-21] MEDS ORDERED: LIRAGLUTIDE 1.8 MG SQ SCH (08:00)
[2020-06-21] MEDS ORDERED: ISOSORBIDE MONONITRATE ER 30 MG TAB.ER.24H PO SCH (08:00)
[2020-06-21] MEDS ORDERED: NON FORMULARY ITEM (Olodaterol HCl (Striverdi Respimat) 4 GM) IH SCH (08:00)
[2020-06-21] MEDS ORDERED: PANTOPRAZOLE 40 MG TABLET. PO SCH (08:00)
[2020-06-21] MEDS: DOCUSATE SODIUM 100 MG CAPSULE PO SCH (08:52)
[2020-06-21] MEDS: QUEtiapine 100 MG TABLET. PO SCH (08:52)
[2020-06-21] MEDS: POTASSIUM CHLORIDE 10 MEQ TABLET.ER. PO SCH (08:52)
[2020-06-21] MEDS: SENNOSIDES 8.6 MG TABLET PO SCH (08:53)
[2020-06-21] MEDS: hydrOXYzine HCL 25 MG TABLET PO SCH (08:53)
[2020-06-21] MEDS: FLUoxetine HCL 20 MG CAPSULE PO SCH (08:54)
[2020-06-21] MEDS: ARIPiprazole 15 MG TABLET PO SCH (08:54)
[2020-06-21] MEDS: METOPROLOL TART IMMED RELEASE 25 MG TABLET. PO SCH (08:54)
[2020-06-21] MEDS: CALCIUM CARB/VIT D3 500/200 TABLET PO SCH (08:55)
[2020-06-21] MEDS: MINERAL OIL/PETROLATUM TOPICAL CREAM 113GM JAR. TP SCH (08:56)
[2020-06-21 09:00] VITALS: BP 106/61
[2020-06-21] MEDS ORDERED: ASPIRIN ENTERIC COATED 81 MG TABLET.DR. PO SCH (09:00)
[2020-06-21] MEDS: DICLOFENAC SODIUM 1% TOPICAL GEL 100GM TUBE. TP SCH (09:00)
[2020-06-21] MEDS ORDERED: amLODIPine BESYLATE 5 MG TABLET PO SCH (09:00)
--- NOTE | 2020-06-21 11:22 | DS ---
DATE OF DISCHARGE: 06/21/2020 FINAL DISCHARGE DIAGNOSES: 1. A 64-year-old female with biopsy-proven squamous cell carcinoma of the left lung. 2. Pleural effusion, most likely malignant. 3. Schizoaffective disorder. 4. Major depression. 5. Hypertension. 6. Hyperlipidemia. HISTORY AND PHYSICAL: The patient is a 64-year-old female who had been at the [facility] for underlying psychiatric issues. She has behavioral issues related to her depression and schizoaffective disorder. She had a biopsy done of her lung 3 weeks ago in [place]. We did get hold of the pathology report. Unfortunately, it is confirmed the squamous cell cancer of the lung. Lymph nodes which were resected showed no evidence of malignancy, but the recurrent pleural effusion is very suggestive of involvement of the pleura. Cytology has been sent. She was scheduled for palliative and diagnostic thoracentesis on the left with intentions of sending off for cytology to look for malignant cells. PHYSICAL EXAMINATION: Please see my dictated note. PERTINENT LABORATORY AND X-RAY STUDIES: Initial thoracentesis showed some preliminary report suggesting increased white cells and red blood cells. The LDH and protein are sent out and cytology is still pending at this time. Followup chest x-ray showed improvement and decrease in left-sided pleural effusion with reexpansion of the lung. No pneumothorax identified. COURSE IN THE HOSPITAL: The patient was admitted overnight. Diet was advanced. Psych meds and home meds were continued. She did well. By the second hospital day, her vital signs were quite stable. Her oxygen saturations were adequate on room air. Her lungs showed improved breath sounds with diminished breath sounds at bases. I tried to talk with her and she is still having difficulty processing the fact that she has documented lung cancer. I did get a hold of her brother in [place] to update him the results. At this time, she is discharged back up to the [facility]. I have placed a phone call to go to the ID system as for guidance as to what the next step is. The brother is wanting her to see an oncologist. I know there is Dr. Arianna Guadalupe, who is an oncologist at the [facility] in [place]. I am trying to call her personally as to guidance of whether she can see her here or whether she needs to go to [facility]. In any event, she is discharged back to the [facility] in stable condition with no changes on her meds. She will continue her scheduled albuterol, Lipitor dose, Imdur, metoprolol 12.5 mg b.i.d., amlodipine, aspirin 81 mg daily, Voltaren gel as needed, salsalate for pain, tramadol p.r.n., Tylenol p.r.n., clonazepam p.r.n., Prozac 80 mg daily, Abilify, Seroquel, hydroxyzine, Requip, calcium, potassium, Lasix, docusate, senna, Protonix, Saxenda, Synthroid, ketaconazole shampoo, triamcinolone, vitamin A and D, vitamin B, vitamin D3 and melatonin dose is unchanged. She is still a full code. She was discharged then in stable condition back to the [facility] with explicit instructions and followup care. NELLY BRADFORD MD DR: MALISSA/radha JOB#: [id number] / [id number]
--- NOTE | 2020-06-21 13:10 | NUR ---
pt discharged from ICU to [facility], report given to Masha Transferred via wheelchair to [facility]. Pt alert/oriented to time, name and place. Needs multiple reassurance on plan of care including oncology plan. All belongings and paperwork sent to unit.
[2020-06-21] MEDS ORDERED: DIVA500T2 PO (17:48)
[2020-06-25] MEDS ORDERED: CHOLECALCIFEROL (VITAMIN D3) 50,000 UNIT CAPSULE PO SCH (09:00)
--- NOTE | 2020-06-25 13:07 | PATHOLOGY ---
Note [facility] Accession Number: [id number] TESTS RESULT FLAG UNITS REF RANGE LAB Clinician Provided Cytology Information No. of containers..01 Other (Miscellaneous) Source: LEFT PLEURAL FLUID DIAGNOSIS: 02 LEFT PLEURAL FLUID NEGATIVE FOR MALIGNANT CELLS. REACTIVE MESOTHELIAL CELLS, CHRONIC INFLAMMATORY CELLS, AND RED BLOOD CELLS PRESENT. THIS INTERPRETATION INCLUDES EVALUATION OF A CELL BLOCK. Signed out by: 02 King Henry MD, Pathologist NPI- [id number] Performed by: Desirae Rodriguez, Small Engine Specialist ([facility]) Gross description: 01 50ML, RED/ORANGE, 1TP 1CB /LCS 06/22/2020 0538 Local FLAG LEGEND: L-Low Normal,H-High Normal,LL-Alert Low,HH-Alert High <-Panic Low,>-Panic High,A-Abnormal,AA-Critical Abnormal Performed at: 01 [facility] [address] [place] [address] Fer Holguin MD, 02 [facility] [address] [place] [address] King Henry MD, Specimen Comment: A courtesy copy of this report has been sent to [phone], [phone] Specimen Comment: [id number] Specimen Comment: Report sent to / DR ANDERSEN Specimen Comment: A duplicate report has been generated due to demographic updates. Performed at: 01 [facility] [address], [place], [place] [id number] MD Fer Holguin MD Phone: [phone]
[2020-07-19] MEDS ORDERED: CYANOCOBALAMIN (VITAMIN B-12) 1,000 MCG/ML VIAL. IM SCH (09:00)
== END 2020-06-21 13:10 ==
LOC: INTOOBSV 10:06 → ICU 10:06
PROVIDERS: ADMIT Internal Medicine; ATTEND Internal Medicine
DX: C34.92 Malignant neoplasm of unspecified part of left bronchus or lung (principal); I10 Essential (primary) hypertension; J91.0 Malignant pleural effusion; F25.9 Schizoaffective disorder, unspecified; E78.5 Hyperlipidemia, unspecified; F32.9 Major depressive disorder, single episode, unspecified; J44.9 Chronic obstructive pulmonary disease, unspecified; E03.9 Hypothyroidism, unspecified; Z79.899 Other long term (current) drug therapy; Z79.82 Long term (current) use of aspirin
CPT/HCPCS: 32555; 36415; 71045; 82042; 82945; 83615; 84157; 88112; 88305; 89050; G0378; G0379; 76942

== ENCOUNTER 2020-06-21 12:47 | Inpatient (IN) | payer MEDICARE ==
[~2020-06-21] VITALS: Ht 157.5 cm; Wt 90.3 kg
[2020-06-21 16:13] VITALS: BP 136/73
[2020-06-21] MEDS ORDERED: ACETAMINOPHEN 325 MG TABLET PO PRN (16:15)
[2020-06-21] MEDS ORDERED: MAG HYDROX/AL HYDROX/SIMETH 30 ML ORAL.SUSP PO PRN (16:15)
[2020-06-21] MEDS ORDERED: METHYL SALICYLATE/MENTHOL TOPICAL OINTMENT 57GM TUBE. TP PRN (16:15)
[2020-06-21] MEDS ORDERED: MAGNESIUM HYDROXIDE 2,400 MG/30 ML ORAL.SUSP. PO PRN (16:15)
[2020-06-21] MEDS ORDERED: TRIAMCINOLONE ACETONIDE 0.1% TOPICAL OINTMENT 15GM TUBE. TP PRN (16:30)
[2020-06-21] MEDS ORDERED: ALBUTEROL SULFATE 2.5 MG/3 ML NEBU. IH PRN (16:30)
[2020-06-21] MEDS ORDERED: ACETAMINOPHEN 500 MG TABLET PO PRN (16:30)
[2020-06-21] MEDS ORDERED: VITS A & D/LANOLIN TOPICAL OINTMENT 42GM TUBE. TP PRN (16:30)
[2020-06-21] MEDS ORDERED: KETOCONAZOLE 2% SHAMPOO 120ML BOTTLE. TP PRN (16:30)
[2020-06-21] MEDS: DICLOFENAC SODIUM 1% TOPICAL GEL 100GM TUBE. TP SCH ×2 (17:00→20:20)
[2020-06-21] MEDS ORDERED: ALBUTEROL SULFATE 8GM INHALER. INH PRN (17:15)
[2020-06-21] MEDS: SENNOSIDES 8.6 MG TABLET PO SCH (17:19)
[2020-06-21] MEDS ORDERED: DIVA500T2 PO (17:48)
[2020-06-21] MEDS: DIVALPROEX ER 500 MG TAB.ER.24H PO SCH (20:16)
[2020-06-21] MEDS: ATORVASTATIN CALCIUM 20 MG TABLET PO SCH (20:17)
[2020-06-21] MEDS: METOPROLOL TART IMMED RELEASE 25 MG TABLET. PO SCH (20:17)
[2020-06-21] MEDS: hydrOXYzine HCL 25 MG TABLET PO SCH (20:18)
[2020-06-21] MEDS: QUEtiapine 100 MG TABLET. PO SCH (20:18)
[2020-06-21] MEDS: DOCUSATE SODIUM 100 MG CAPSULE PO SCH (20:18)
[2020-06-21] MEDS: rOPINIRole 0.5 MG TABLET. PO SCH (20:19)
[2020-06-21] MEDS: POTASSIUM CHLORIDE 10 MEQ TABLET.ER. PO SCH (20:19)
[2020-06-21] MEDS: CALCIUM CARB/VIT D3 500/200 TABLET PO SCH (20:19)
[2020-06-21] MEDS: MELATONIN 3 MG TABLET PO SCH (20:20)
[2020-06-21] MEDS: MINERAL OIL/PETROLATUM TOPICAL CREAM 113GM JAR. TP SCH (20:20)
[2020-06-21] MEDS: SALSALATE 500 MG PO SCH (21:18)
--- NOTE | 2020-06-21 22:21 | PDOC ---
Exam Note: [place] Note: Please also refer to the separate dictated note~for this date of service dictated separately.~Patient seen individually. Discussed the patient with Nursing staff reviewed the chart.~Reviewed interim history and current functioning. Reviewed vital signs,~Labs/ Radiology~and current medications noted below. Continue current treatment with the changes noted in the dictated addendum note Assessment: Vital Signs/I&O: Vital Signs Date Time Temp Pulse Resp B/P (MAP) Pulse Ox O2 Delivery O2 Flow Rate FiO2 06/21/20 20:17 72 136/73 06/21/20 16:13 98.0 20 92 Current Medications: Meds: Current Medications Medications (Trade) Dose Ordered Sig/Indra Route PRN Reason Start Time Stop Time Status Last Admin Dose Admin Atorvastatin Calcium (Lipitor) 20 mg QHS PO 06/21/20 21:00 06/21/20 20:17 Calcium/Vitamin D (Oscal D 500mg/ 200uts) 1 tab BID PO 06/21/20 21:00 06/21/20 20:19 Docusate Sodium (Colace) 100 mg BID PO 06/21/20 21:00 06/21/20 20:18 Metoprolol Tartrate (Lopressor) 12.5 mg BID PO 06/21/20 21:00 06/21/20 20:17 Ropinirole HCl (Requip) 0.5 mg HS PO 06/21/20 21:00 06/21/20 20:19 Salsalate (Salsalate) 1,000 mg 2100 PO 06/21/20 21:00 06/21/20 21:18 Sennosides (Senna) 8.6 mg BID76 PO 06/21/20 18:00 06/21/20 17:19 Melatonin (Melatonin) 3 mg HS PO 06/21/20 21:00 06/21/20 20:20 Potassium Chloride (Klor-Con) 10 meq TID PO 06/21/20 21:00 06/21/20 20:19 Quetiapine Fumarate (SEROquel) 600 mg HS PO 06/21/20 21:00 06/21/20 20:18 Hydroxyzine HCl (Atarax) 25 mg TID PO 06/21/20 21:00 06/21/20 20:18 Divalproex Sodium (Depakote Er) 500 mg QHS PO 06/21/20 21:00 06/21/20 20:16 I have reviewed the current psychotropics carefully including drug interactions. Risk benefit ratio favors no change other than as noted in my dictated progress note. Diagnosis: Problems: (1) Schizoaffective disorder, bipolar type (2) Anxiety disorder, unspecified (3) Bipolar disorder, current episode depressed, severe, with psychotic features (4) Impulse control disorder, unspecified MICHAEL CLARK MD Jun 21, 2020 22:21
[2020-06-22] MEDS: LEVOTHYROXINE 75 MCG TABLET PO SCH (05:04)
[2020-06-22] MEDS: traMADol 50 MG TABLET PO PRN (05:04)
[2020-06-22] MEDS: clonazePAM 0.5 MG TABLET PO PRN ×2 (05:09→16:04)
[2020-06-22 05:54] VITALS: BP 129/66
[2020-06-22] MEDS: LIRAGLUTIDE 1.8 MG SQ SCH (08:00)
[2020-06-22] MEDS: NON FORMULARY ITEM (Olodaterol HCl (Striverdi Respimat) 4 GM) IH SCH (08:00)
[2020-06-22] MEDS: MINERAL OIL/PETROLATUM TOPICAL CREAM 113GM JAR. TP SCH ×2 (09:00→20:06)
[2020-06-22] MEDS: CALCIUM CARB/VIT D3 500/200 TABLET PO SCH ×2 (09:44→19:59)
[2020-06-22] MEDS: FLUoxetine HCL 20 MG CAPSULE PO SCH (09:44)
[2020-06-22] MEDS: hydrOXYzine HCL 25 MG TABLET PO SCH ×3 (09:44→19:59)
[2020-06-22] MEDS: PANTOPRAZOLE 40 MG TABLET. PO SCH (09:44)
[2020-06-22] MEDS: ISOSORBIDE MONONITRATE ER 30 MG TAB.ER.24H PO SCH (09:44)
[2020-06-22] MEDS: SENNOSIDES 8.6 MG TABLET PO SCH ×2 (09:45→16:04)
[2020-06-22] MEDS: ARIPiprazole 15 MG TABLET PO SCH (09:45)
[2020-06-22] MEDS: amLODIPine BESYLATE 5 MG TABLET PO SCH (09:45)
[2020-06-22] MEDS: POTASSIUM CHLORIDE 10 MEQ TABLET.ER. PO SCH ×3 (09:45→20:00)
[2020-06-22] MEDS: METOPROLOL TART IMMED RELEASE 25 MG TABLET. PO SCH ×2 (09:46→20:00)
[2020-06-22] MEDS: SALSALATE 500 MG PO SCH ×2 (09:48→19:59)
[2020-06-22] MEDS: ASPIRIN ENTERIC COATED 81 MG TABLET.DR. PO SCH (09:49)
[2020-06-22] MEDS: DICLOFENAC SODIUM 1% TOPICAL GEL 100GM TUBE. TP SCH ×4 (09:50→21:00)
[2020-06-22] MEDS: DOCUSATE SODIUM 100 MG CAPSULE PO SCH ×2 (09:50→20:01)
[2020-06-22] MEDS: QUEtiapine 100 MG TABLET. PO SCH ×2 (09:55→19:59)
[2020-06-22] MEDS: FUROSEMIDE 20 MG TABLET PO SCH (16:04)
[2020-06-22 16:20] VITALS: BP 122/72
--- NOTE | 2020-06-22 16:58 | TX PLAN ---
Interdisciplinary Tx Plan Admission Information Jun 21, 2020 at 13:15 Legal Status (on Admission): Voluntary DPOA/Guardian Name: Felix Moscoso Contact Other Contact Name: Emigdio Cantrell Other Contact Verified Code Status: Full Code Allergies: Coded Allergies: chlorpromazine (Verified Allergy, Unknown, 06/07/20) diphenhydramine (Verified Allergy, Unknown, 06/07/20) lisinopril (Verified Allergy, Unknown, 06/07/20) simvastatin (Verified Allergy, Unknown, 06/07/20) Diagnoses Primary Diagnosis: Schizoaffective D/O Reasons for Admission: Delusions, Other Problem in Patient's Words: NA Additional Admission Comments: Pt was re-admitted to [facility] on 06/21 after having a Thoracentesis and 24 hour observation on ICU. Pt is labile and mostly tearful. Previous admission stated pt is paranoid,having multiple times in her head causing an abrasion, anxious and making statements of "I just want to end this" Problems Active Problems: delusional labile mood anxious Inactive Problems: medication management Pt Strengths/Limitations Ability for [place]: Poor Cognitive Functioning/Ability: Fair Communication Skills/Ability: Fair Financial Resources: Fair [place]ight/Judgement: Poor Intellectual Ability: Fair Physical Health: Poor Social Skills: Fair Stability in Family: Fair Stability in School/Work: Poor Verbal Skills: Fair Discharge Criteria Discharge Criteria: No need for close observ., Adequate arrangements @DC, Improved behavior, Improved mood/thought Special Precautions Fall Risk: Moderate Initial D/C Plan Pt will need placement at discharge. Identified Discharge Needs: Referrals for higher level of care Currently Utilized Resources Currently Utilized Resources/P: [facility] services : PCP, Psychiatrist, Counseling, manager strategic Identified Problems/Hx/Goals Objectives/Short-Term Goals Short Term Goals: Dec. Anxiety/Panic, Dec. Hallucination/Delus, Dec. Outbursts, Dec. Symp. Depression, Medication Stabilization, Monitor Med Effects, Promote Coping Skill Short Term Goals in Patient's: I just need to get my Fluffy back Interventions/Frequency Staff Interventions/Frequency&: Psychiatrist to assess pt at least 3x per week for medication mgmt. Social Work to assess pt at least 2x per week to identify barriers to care and final discharge planning. Nursing to assess medication effects, behavior modification and completion of 15 minute checks daily. Encourage participation in group activities (if applicable) or 1:1 engagement based off activity dept goals. History Vocational History: Pt was not able to fully work as her psychiatric troubles prevented her from doing so. 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
[2020-06-22] MEDS: DIVALPROEX ER 500 MG TAB.ER.24H PO SCH (19:57)
[2020-06-22] MEDS: ATORVASTATIN CALCIUM 20 MG TABLET PO SCH (19:59)
[2020-06-22] MEDS: rOPINIRole 0.5 MG TABLET. PO SCH (20:00)
[2020-06-22] MEDS: MELATONIN 3 MG TABLET PO SCH (20:01)
[2020-06-22] MEDS ORDERED: DIVALPROEX ER 500 MG TAB.ER.24H PO SCH (21:00)
--- NOTE | 2020-06-22 21:20 | HP ---
ADMIT DATE: 06/21/2020 ADMISSION HISTORY AND EVALUATION This late entry date of service 06/21/2020 covers elements not covered in my initial note of 06/21/2020. IDENTIFYING DATA: The patient is a 64-year-old female who returns back to us from [facility]. She was transitioned from my Unit due to pleural effusion secondary to her lung cancer. She had a thoracentesis and once she was medically stable she remained psychotic and referred back to us for stabilization of her schizoaffective disorder, mixed type, with psychotic features. CHIEF COMPLAINT: "My mind is still going fast." HISTORY OF PRESENT ILLNESS: The patient has a long history of schizoaffective disorder, bipolar type. She is 100% service connected for this with the [facility]. She was living at home, getting increasingly psychotic, which is what initially prompted the referral. She had hit herself multiple times in the head causing abrasion, was anxious, made statements "I want to end this." On the unit she was being stabilized, Depakote added as a mood stabilizer, antipsychotics were being adjusted and then she developed a pleural effusion as a complication of her lung cancer and was transitioned to the ICU for thoracentesis and returns after that. No current suicidal or homicidal ideation. PAST PSYCHIATRIC HISTORY: As above. MEDICAL HISTORY: Positive for lung cancer, hypertension, hypothyroidism, lung fibrosis, status post left upper lobectomy, COPD, borderline personality disorder. ACCU-CHEKS: None. CODE STATUS: Full code. ALLERGIES: BENADRYL, LISINOPRIL, THORAZINE, ZOCOR. DIET: Regular. Takes medications whole, ambulates in wheelchair, mostly walker, self transfers and toilets. CURRENT PSYCHOTROPICS: Abilify 15 mg a day, Klonopin 0.5 mg b.i.d. p.r.n. anxiety, Prozac 80 mg a day, hydroxyzine 25 mg t.i.d., melatonin 3 mg at bedtime, Seroquel 300 mg daily, 600 mg at bedtime, Requip 0.5 mg at bedtime, Depakote ER 500 mg daily. FAMILY HISTORY: Noncontributory. SOCIAL HISTORY: No alcohol, drug abuse, physical, sexual or elder abuse. She is not known to be a perpetrator. REACTION TO HOSPITALIZATION: The patient accepting of it. ASSETS: Supportive environment with the [facility]. REVIEW OF SYSTEMS: Ambulation impaired, some difficulty with breathing. No CV, , GI, eye system symptoms on review. MENTAL STATUS EXAMINATION: Oriented to herself and situation. Speech rapid, coherent, abstraction fair, computation impaired, language function intact, attention span short. She is quite distractible, anxious, restless, paranoid. LABORATORY DATA: Reviewed. IMPRESSION: Schizoaffective disorder, bipolar type, mixed with psychotic features; anxiety disorder, unspecified; impulse control disorder, unspecified. Rest as above. PLAN: Admit to Geropsychiatry Unit at [facility]. I will see the patient daily individually from a psychiatric standpoint. Medical followup with Dr. Lowe/Dr. Ryan. Continue current psychotropics. Observe baseline, adjust Depakote to reach therapeutic level. May need to increase Abilify. Further followup post-discharge at the [facility]. ESTIMATED LENGTH OF STAY: 7-10 days. DISPOSITION PLANS: Back to a lower level of care. Perhaps nursing facility with outpatient followup at the [facility] both from medical and psychiatric standpoint. MAN Corinne CLARK MD DR: DEEPTHI/radha JOB#: [id number] / [id number]
--- NOTE | 2020-06-22 22:13 | PN ---
DATE: 06/22/2020 This note covers elements not covered in my initial note, 06/22/2020. SUBJECTIVE: The patient was seen on rounds evening of 06/22/2020. She slept 4-1/2 hours previous night. She was staffed at a treatment team meeting with the entire team with SHANTA Harmon and [facility] staff. She has been paranoid, delusional, anxious, restless, but is tolerating the Depakote. I met with her at length in her room. REVIEW OF SYSTEMS: Ambulation impaired, in wheelchair. No CV, , pulmonary, eye system symptoms on review. MENTAL STATUS EXAM: Oriented to herself and situation. Speech coherent, rapid at times. Abstraction fair, computation impaired, language function intact, attention span short. Mood and affect labile. LABORATORY DATA: Reviewed. IMPRESSION: Schizoaffective disorder, bipolar type, mixed with psychotic features. Rest unchanged. PLAN: Continue current psychotropics mentioned in my initial note. Check a valproic acid level, CBC, CMP on the . Adjust Depakote to reach therapeutic level. Continue rest of the psychotropics unchanged. MAN Corinne CLARK MD DR: DEEPTHI/radha JOB#: [id number] / [id number]
--- NOTE | 2020-06-22 22:18 | PDOC ---
Exam Note: [place] Note: Please also refer to the separate dictated note~for this date of service dictated separately.~Patient seen individually. Discussed the patient with Nursing staff reviewed the chart.~Reviewed interim history and current functioning. Reviewed vital signs,~Labs/ Radiology~and current medications noted below. Continue current treatment with the changes noted in the dictated addendum note Assessment: Vital Signs/I&O: Vital Signs Date Time Temp Pulse Resp B/P (MAP) Pulse Ox O2 Delivery O2 Flow Rate FiO2 06/22/20 20:00 74 122/72 06/22/20 16:20 98.0 20 96 Room Air I & O 06/21/20 06/21/20 06/22/20 15:00 23:00 07:00 Intake Total 360 ml Balance 360 ml Current Medications: Meds: Current Medications Medications (Trade) Dose Ordered Sig/Indra Route PRN Reason Start Time Stop Time Status Last Admin Dose Admin Amlodipine Besylate (Norvasc) 5 mg DAILY PO 06/22/20 09:00 06/22/20 09:45 Aripiprazole (Abilify) 15 mg DAILY PO 06/22/20 09:00 06/22/20 09:45 Aspirin (Aspirin Enteric Coated) 81 mg DAILY PO 06/22/20 09:00 06/22/20 09:49 Furosemide (Lasix) 20 mg DAILY16 PO 06/22/20 16:00 06/22/20 16:04 Isosorbide Mononitrate (Imdur) 30 mg DAILY08 PO 06/22/20 08:00 06/22/20 09:44 Levothyroxine Sodium (Synthroid) 75 mcg DAILY06 PO 06/22/20 06:00 06/22/20 05:04 Pantoprazole Sodium (Protonix) 40 mg DAILY08 PO 06/22/20 08:00 06/22/20 09:44 Salsalate (Salsalate) 1,500 mg 0800 PO 06/22/20 08:00 06/22/20 09:48 Fluoxetine HCl (PROzac) 80 mg DAILY08 PO 06/22/20 08:00 06/22/20 09:44 Quetiapine Fumarate (SEROquel) 300 mg DAILY08 PO 06/22/20 08:00 06/22/20 09:55 I have reviewed the current psychotropics carefully including drug interactions. Risk benefit ratio favors no change other than as noted in my dictated progress note. Diagnosis: Problems: (1) Schizoaffective disorder, bipolar type (2) Impulse control disorder, unspecified (3) Anxiety disorder, unspecified (4) Bipolar disorder, current episode depressed, severe, with psychotic features MICHAEL CLARK MD Jun 22, 2020 22:18
[2020-06-23] MEDS: traMADol 50 MG TABLET PO PRN ×2 (01:19→14:50)
[2020-06-23] MEDS: clonazePAM 0.5 MG TABLET PO PRN ×2 (03:02→16:45)
[2020-06-23] MEDS: LEVOTHYROXINE 75 MCG TABLET PO SCH (05:19)
[2020-06-23 06:49] VITALS: BP 148/75
--- NOTE | 2020-06-23 07:41 | PDOC ---
Exam Note: [place] Note: This note is a late entry and addendum for 06/22/2020 covers elements not covered in my initial note. The patient was seen at treatment team meeting morning of 06/22 and seen individually evening of 06/22/20 in her room. At treatment team we had a discussion about the patients diagnoses, factors for readmission and her history and discharge plans. Assessment: Vital Signs/I&O: Vital Signs Date Time Temp Pulse Resp B/P (MAP) Pulse Ox O2 Delivery O2 Flow Rate FiO2 06/23/20 06:49 97.2 54 20 148/75 (99) 92 Room Air I & O 06/22/20 06/22/20 06/23/20 15:00 23:00 07:00 Intake Total 840 ml 360 ml Balance 840 ml 360 ml Current Medications: Meds: Current Medications Medications (Trade) Dose Ordered Sig/Indra Route PRN Reason Start Time Stop Time Status Last Admin Dose Admin Acetaminophen (Tylenol) 650 mg PRN Q6HRS PRN PO MILD PAIN / TEMP > 100.3'F 06/21/20 16:15 Multi-Ingredient Ointment (Analgesic [place]) 1 joesph PRN QID PRN TP MUSCLE PAIN 06/21/20 16:15 Al Hydroxide/Mg Hydroxide (Mylanta Plus Xs) 15 ml PRN AFTMEALHC PRN PO DYSPEPSIA 06/21/20 16:15 Magnesium Hydroxide (Milk Of Magnesia) 2,400 mg PRN QHS PRN PO CONSTIPATION 06/21/20 16:15 Acetaminophen (Tylenol) 500 mg PRN Q6HRS PRN PO pain or fever 06/21/20 16:30 UNV Albuterol Sulfate (Ventolin) 2.5 mg PRN Q4HRS PRN IH FOR ASTHMA 06/21/20 16:30 UNV Amlodipine Besylate (Norvasc) 5 mg DAILY PO 06/22/20 09:00 06/22/20 09:45 Aripiprazole (Abilify) 15 mg DAILY PO 06/22/20 09:00 06/22/20 09:45 Aspirin (Aspirin Enteric Coated) 81 mg DAILY PO 06/22/20 09:00 06/22/20 09:49 Atorvastatin Calcium (Lipitor) 20 mg QHS PO 06/21/20 21:00 06/22/20 19:59 Calcium/Vitamin D (Oscal D 500mg/ 200uts) 1 tab BID PO 06/21/20 21:00 06/22/20 19:59 Vitamin D (Vitamin D3) 50,000 unit WEEKLY PO 06/25/20 09:00 Clonazepam (KlonoPIN) 0.5 mg PRN BID PRN PO ANXIETY / AGITATION 06/21/20 16:30 06/23/20 03:02 Cyanocobalamin (Vitamin B-12) 1,000 mcg QMONTH IM 07/17/20 09:00 Diclofenac Sodium (Voltaren) 2 joesph QID TP 06/21/20 17:00 06/22/20 21:00 Docusate Sodium (Colace) 100 mg BID PO 06/21/20 21:00 06/22/20 20:01 Furosemide (Lasix) 20 mg DAILY16 PO 06/22/20 16:00 06/22/20 16:04 Isosorbide Mononitrate (Imdur) 30 mg DAILY08 PO 06/22/20 08:00 06/22/20 09:44 Ketoconazole (Nizoral 2% Shampoo) 1 joesph PRN DAILY PRN TP DANDRUFF 06/21/20 16:30 Levothyroxine Sodium (Synthroid) 75 mcg DAILY06 PO 06/22/20 06:00 06/23/20 05:19 Metoprolol Tartrate (Lopressor) 12.5 mg BID PO 06/21/20 21:00 06/22/20 20:00 Pantoprazole Sodium (Protonix) 40 mg DAILY08 PO 06/22/20 08:00 06/22/20 09:44 Ropinirole HCl (Requip) 0.5 mg HS PO 06/21/20 21:00 06/22/20 20:00 Salsalate (Salsalate) 1,000 mg 2100 PO 06/21/20 21:00 06/22/20 19:59 Salsalate (Salsalate) 1,500 mg 0800 PO 06/22/20 08:00 06/22/20 09:48 Sennosides (Senna) 8.6 mg BID76 PO 06/21/20 18:00 06/23/20 05:00 DC 06/22/20 16:04 Tramadol HCl (Ultram) 50 mg PRN Q6HRS PRN PO PAIN 06/21/20 16:30 06/23/20 01:19 Triamcinolone Acetonide (Kenalog) 1 joesph PRN Q12HR PRN TP ITCHING 06/21/20 16:30 Vitamin A/Vitamin D (Vitamin A & D Ointment) 1 joesph PRN Q1HR PRN TP DRY SKIN / SCALING 06/21/20 16:30 Multi-Ingred Cream/Lotion/Oil/ Oint (Hydrocerin) 1 joesph BID TP 06/21/20 21:00 06/22/20 09:00 Fluoxetine HCl (PROzac) 80 mg DAILY08 PO 06/22/20 08:00 06/22/20 09:44 Non-Formulary Medication (Liraglutide (Saxenda)) 1.8 mg 0800 SQ 06/22/20 08:00 UNV Melatonin (Melatonin) 3 mg HS PO 06/21/20 21:00 06/22/20 20:01 Non-Formulary Medication (Olodaterol HCl (Striverdi Respimat)) 4 gm DAILY08 IH 06/22/20 08:00 UNV Potassium Chloride (Klor-Con) 10 meq TID PO 06/21/20 21:00 06/22/20 20:00 Quetiapine Fumarate (SEROquel) 300 mg DAILY08 PO 06/22/20 08:00 06/22/20 09:55 Quetiapine Fumarate (SEROquel) 600 mg HS PO 06/21/20 21:00 06/22/20 19:59 Hydroxyzine HCl (Atarax) 25 mg TID PO 06/21/20 21:00 06/22/20 19:59 Albuterol Sulfate (Ventolin Hfa Inhaler) 2 puff PRN Q4HRS PRN INH SHORTNESS OF BREATH 06/21/20 17:15 Divalproex Sodium (Depakote Er) 500 mg QHS PO 06/21/20 21:00 06/22/20 19:57 Divalproex Sodium (Depakote Er) 500 mg QHS PO 06/22/20 21:00 06/22/20 12:14 DC Sennosides (Senna) 8.6 mg BIDACBL PO 06/23/20 07:30 Current Medications Medications (Trade) Dose Ordered Sig/Indra Route PRN Reason Start Time Stop Time Status Last Admin Dose Admin Amlodipine Besylate (Norvasc) 5 mg DAILY PO 06/22/20 09:00 06/22/20 09:45 Aripiprazole (Abilify) 15 mg DAILY PO 06/22/20 09:00 06/22/20 09:45 Aspirin (Aspirin Enteric Coated) 81 mg DAILY PO 06/22/20 09:00 06/22/20 09:49 Furosemide (Lasix) 20 mg DAILY16 PO 06/22/20 16:00 06/22/20 16:04 Isosorbide Mononitrate (Imdur) 30 mg DAILY08 PO 06/22/20 08:00 06/22/20 09:44 Pantoprazole Sodium (Protonix) 40 mg DAILY08 PO 06/22/20 08:00 06/22/20 09:44 Salsalate (Salsalate) 1,500 mg 0800 PO 06/22/20 08:00 06/22/20 09:48 Fluoxetine HCl (PROzac) 80 mg DAILY08 PO 06/22/20 08:00 06/22/20 09:44 Quetiapine Fumarate (SEROquel) 300 mg DAILY08 PO 06/22/20 08:00 06/22/20 09:55 I have reviewed the current psychotropics carefully including drug interactions. Risk benefit ratio favors no change other than as noted in my dictated progress note. Diagnosis: Problems: (1) Schizoaffective disorder, bipolar type (2) Impulse control disorder, unspecified (3) Anxiety disorder, unspecified (4) Bipolar disorder, current episode depressed, severe, with psychotic features MICHAEL CLARK MD Jun 23, 2020 07:41
[2020-06-23] MEDS: NON FORMULARY ITEM (Olodaterol HCl (Striverdi Respimat) 4 GM) IH SCH (07:47)
[2020-06-23] MEDS: LIRAGLUTIDE 1.8 MG SQ SCH (07:48)
[2020-06-23] MEDS: ISOSORBIDE MONONITRATE ER 30 MG TAB.ER.24H PO SCH (08:36)
[2020-06-23] MEDS: ARIPiprazole 15 MG TABLET PO SCH (08:36)
[2020-06-23] MEDS: FLUoxetine HCL 20 MG CAPSULE PO SCH (08:36)
[2020-06-23] MEDS: SENNOSIDES 8.6 MG TABLET PO SCH ×2 (08:36→12:25)
[2020-06-23] MEDS: QUEtiapine 100 MG TABLET. PO SCH ×2 (08:37→19:41)
[2020-06-23] MEDS: SALSALATE 500 MG PO SCH ×2 (08:37→19:40)
[2020-06-23] MEDS: amLODIPine BESYLATE 5 MG TABLET PO SCH (08:37)
[2020-06-23] MEDS: PANTOPRAZOLE 40 MG TABLET. PO SCH (08:37)
[2020-06-23] MEDS: ASPIRIN ENTERIC COATED 81 MG TABLET.DR. PO SCH (08:37)
[2020-06-23] MEDS: DOCUSATE SODIUM 100 MG CAPSULE PO SCH ×2 (08:37→19:42)
[2020-06-23] MEDS: hydrOXYzine HCL 25 MG TABLET PO SCH ×3 (08:37→19:41)
[2020-06-23] MEDS: CALCIUM CARB/VIT D3 500/200 TABLET PO SCH ×2 (08:38→19:41)
[2020-06-23] MEDS: MINERAL OIL/PETROLATUM TOPICAL CREAM 113GM JAR. TP SCH ×2 (08:38→19:43)
[2020-06-23] MEDS: METOPROLOL TART IMMED RELEASE 25 MG TABLET. PO SCH ×2 (08:38→19:42)
[2020-06-23] MEDS: POTASSIUM CHLORIDE 10 MEQ TABLET.ER. PO SCH ×3 (08:39→19:42)
[2020-06-23] MEDS: DICLOFENAC SODIUM 1% TOPICAL GEL 100GM TUBE. TP SCH ×4 (08:39→19:44)
[2020-06-23 16:21] VITALS: BP 140/88
[2020-06-23] MEDS: FUROSEMIDE 20 MG TABLET PO SCH (16:42)
[2020-06-23] MEDS: MELATONIN 3 MG TABLET PO SCH (19:41)
[2020-06-23] MEDS: ATORVASTATIN CALCIUM 20 MG TABLET PO SCH (19:41)
[2020-06-23] MEDS: rOPINIRole 0.5 MG TABLET. PO SCH (19:42)
[2020-06-23] MEDS: DIVALPROEX ER 500 MG TAB.ER.24H PO SCH (19:43)
--- NOTE | 2020-06-23 22:05 | PDOC ---
Exam Note: [place] Note: Please also refer to the separate dictated note~for this date of service dictated separately.~Patient seen individually. Discussed the patient with Nursing staff reviewed the chart.~Reviewed interim history and current functioning. Reviewed vital signs,~Labs/ Radiology~and current medications noted below. Continue current treatment with the changes noted in the dictated addendum note Assessment: Vital Signs/I&O: Vital Signs Date Time Temp Pulse Resp B/P (MAP) Pulse Ox O2 Delivery O2 Flow Rate FiO2 06/23/20 19:42 62 140/88 06/23/20 16:21 97.3 16 95 Room Air I & O 06/22/20 06/22/20 06/23/20 14:59 22:59 06:59 Intake Total 840 ml 360 ml Balance 840 ml 360 ml Current Medications: Meds: Current Medications Medications (Trade) Dose Ordered Sig/Indra Route PRN Reason Start Time Stop Time Status Last Admin Dose Admin Acetaminophen (Tylenol) 650 mg PRN Q6HRS PRN PO MILD PAIN / TEMP > 100.3'F 06/21/20 16:15 Multi-Ingredient Ointment (Analgesic [place]) 1 joesph PRN QID PRN TP MUSCLE PAIN 06/21/20 16:15 Al Hydroxide/Mg Hydroxide (Mylanta Plus Xs) 15 ml PRN AFTMEALHC PRN PO DYSPEPSIA 06/21/20 16:15 Magnesium Hydroxide (Milk Of Magnesia) 2,400 mg PRN QHS PRN PO CONSTIPATION 06/21/20 16:15 Acetaminophen (Tylenol) 500 mg PRN Q6HRS PRN PO pain or fever 06/21/20 16:30 UNV Albuterol Sulfate (Ventolin) 2.5 mg PRN Q4HRS PRN IH FOR ASTHMA 06/21/20 16:30 UNV Amlodipine Besylate (Norvasc) 5 mg DAILY PO 06/22/20 09:00 06/23/20 08:37 Aripiprazole (Abilify) 15 mg DAILY PO 06/22/20 09:00 06/23/20 08:36 Aspirin (Aspirin Enteric Coated) 81 mg DAILY PO 06/22/20 09:00 06/23/20 08:37 Atorvastatin Calcium (Lipitor) 20 mg QHS PO 06/21/20 21:00 06/23/20 19:41 Calcium/Vitamin D (Oscal D 500mg/ 200uts) 1 tab BID PO 06/21/20 21:00 06/23/20 19:41 Vitamin D (Vitamin D3) 50,000 unit WEEKLY PO 06/25/20 09:00 Clonazepam (KlonoPIN) 0.5 mg PRN BID PRN PO ANXIETY / AGITATION 06/21/20 16:30 06/23/20 16:45 Cyanocobalamin (Vitamin B-12) 1,000 mcg QMONTH IM 07/17/20 09:00 Diclofenac Sodium (Voltaren) 2 joesph QID TP 06/21/20 17:00 06/23/20 19:44 Docusate Sodium (Colace) 100 mg BID PO 06/21/20 21:00 06/23/20 19:42 Furosemide (Lasix) 20 mg DAILY16 PO 06/22/20 16:00 06/23/20 16:42 Isosorbide Mononitrate (Imdur) 30 mg DAILY08 PO 06/22/20 08:00 06/23/20 08:36 Ketoconazole (Nizoral 2% Shampoo) 1 joesph PRN DAILY PRN TP DANDRUFF 06/21/20 16:30 Levothyroxine Sodium (Synthroid) 75 mcg DAILY06 PO 06/22/20 06:00 06/23/20 05:19 Metoprolol Tartrate (Lopressor) 12.5 mg BID PO 06/21/20 21:00 06/23/20 19:42 Pantoprazole Sodium (Protonix) 40 mg DAILY08 PO 06/22/20 08:00 06/23/20 08:37 Ropinirole HCl (Requip) 0.5 mg HS PO 06/21/20 21:00 06/23/20 19:42 Salsalate (Salsalate) 1,000 mg 2100 PO 06/21/20 21:00 06/23/20 19:40 Salsalate (Salsalate) 1,500 mg 0800 PO 06/22/20 08:00 06/23/20 08:37 Sennosides (Senna) 8.6 mg BID76 PO 06/21/20 18:00 06/23/20 05:00 DC 06/22/20 16:04 Tramadol HCl (Ultram) 50 mg PRN Q6HRS PRN PO PAIN 06/21/20 16:30 06/23/20 14:50 Triamcinolone Acetonide (Kenalog) 1 joesph PRN Q12HR PRN TP ITCHING 06/21/20 16:30 Vitamin A/Vitamin D (Vitamin A & D Ointment) 1 joesph PRN Q1HR PRN TP DRY SKIN / SCALING 06/21/20 16:30 Multi-Ingred Cream/Lotion/Oil/ Oint (Hydrocerin) 1 joesph BID TP 06/21/20 21:00 06/23/20 08:38 Fluoxetine HCl (PROzac) 80 mg DAILY08 PO 06/22/20 08:00 06/23/20 08:36 Non-Formulary Medication (Liraglutide (Saxenda)) 1.8 mg 0800 SQ 06/22/20 08:00 UNV Melatonin (Melatonin) 3 mg HS PO 06/21/20 21:00 06/23/20 19:41 Non-Formulary Medication (Olodaterol HCl (Striverdi Respimat)) 4 gm DAILY08 IH 06/22/20 08:00 UNV Potassium Chloride (Klor-Con) 10 meq TID PO 06/21/20 21:00 06/23/20 19:42 Quetiapine Fumarate (SEROquel) 300 mg DAILY08 PO 06/22/20 08:00 06/23/20 08:37 Quetiapine Fumarate (SEROquel) 600 mg HS PO 06/21/20 21:00 06/23/20 19:41 Hydroxyzine HCl (Atarax) 25 mg TID PO 06/21/20 21:00 06/23/20 19:41 Albuterol Sulfate (Ventolin Hfa Inhaler) 2 puff PRN Q4HRS PRN INH SHORTNESS OF BREATH 06/21/20 17:15 Divalproex Sodium (Depakote Er) 500 mg QHS PO 06/21/20 21:00 06/23/20 19:43 Divalproex Sodium (Depakote Er) 500 mg QHS PO 06/22/20 21:00 06/22/20 12:14 DC Sennosides (Senna) 8.6 mg BIDACBL PO 06/23/20 07:30 06/23/20 12:25 Current Medications Medications (Trade) Dose Ordered Sig/Indra Route PRN Reason Start Time Stop Time Status Last Admin Dose Admin Sennosides (Senna) 8.6 mg BIDACBL PO 06/23/20 07:30 06/23/20 12:25 I have reviewed the current psychotropics carefully including drug interactions. Risk benefit ratio favors no change other than as noted in my dictated progress note. Diagnosis: Problems: (1) Schizoaffective disorder, bipolar type (2) Impulse control disorder, unspecified (3) Anxiety disorder, unspecified (4) Bipolar disorder, current episode depressed, severe, with psychotic features MICHAEL CLARK MD Jun 23, 2020 22:05
[2020-06-24] MEDS: clonazePAM 0.5 MG TABLET PO PRN (01:30)
[2020-06-24] MEDS: LEVOTHYROXINE 75 MCG TABLET PO SCH (01:31)
[2020-06-24 06:44] LABS: BASO % 1 % (0-3); EOS # 0.4 x10^3/uL (0.0-0.7); EOS % 6 % (0-3); HEMATOCRIT 33.4 % (36.0-47.0); LYMPH # 1.1 x10^3/uL (1.0-4.8); LYMPH % 17 % (24-48); MEAN CORPUSCULAR HEMOGLOBIN 27 pg (25-35); MEAN CORPUSCULAR HGB CONC 33 g/dL (31-37); MEAN CORPUSCULAR VOLUME 83 fL (79-100); MONO # 0.6 x10^3/uL (0.0-1.1); MONO % 9 % (0-9); NEUT # 4.5 x10^3uL (1.8-7.7); NEUT % 67 % (31-73); PLATELET COUNT 299 x10^3/uL (140-400); RED BLOOD COUNT 4.04 x10^6/uL (3.50-5.40); RED CELL DISTRIBUTION WIDTH 16.3 % (11.5-14.5); WHITE BLOOD COUNT 6.7 x10^3/uL (4.0-11.0)
[2020-06-24 06:53] VITALS: BP 130/83
[2020-06-24 06:57] LABS: ALBUMIN 3.1 g/dL (3.4-5.0); ALBUMIN/GLOBULIN RATIO 0.9 (1.0-1.7); ALK PHOS 92 U/L (46-116); ALT (SGPT) 20 U/L (14-59); ANION GAP 6 (6-14); AST (SGOT) 18 U/L (15-37); BLOOD UREA NITROGEN 17 mg/dL (7-20); BUN/CREATININE RATIO 21 (6-20); CALCIUM 9.2 mg/dL (8.5-10.1); CARBON DIOXIDE 29 mmol/L (21-32); CHLORIDE 101 mmol/L (98-107); CREATININE 0.8 mg/dL (0.6-1.0); GFR 71.8; GLUCOSE 92 mg/dL (70-99); POTASSIUM 4.9 mmol/L (3.5-5.1); SODIUM 136 mmol/L (136-145); TOTAL BILIRUBIN 0.2 mg/dL (0.2-1.0); TOTAL PROTEIN 6.7 g/dL (6.4-8.2)
[2020-06-24] MEDS: NON FORMULARY ITEM (Olodaterol HCl (Striverdi Respimat) 4 GM) IH SCH (07:32)
[2020-06-24] MEDS: LIRAGLUTIDE 1.8 MG SQ SCH (07:33)
[2020-06-24 07:38] LABS: VAL ACID 41 mcg/mL (50-100)
--- NOTE | 2020-06-24 07:52 | PDOC ---
Exam Note: [place] Note: This note is a late entry for 06/23/2020 covers elements not covered in my initial note. Subjective: The patient was seen individually in the evening of 06/23/2020 with Chacorta WOMACK, discussed and reviewed the chart. The patient just slept 5-1/2 hours previous night. Overall the patient has done better today. She had a telephone conversation with her family, then was quite a bit after that. She does complain of some back pain. Received Ultram. Review of Systems: Ambulation impaired in wheelchair. No CV, , eye system symptoms on review. Mental Status Exam: The patient is reasonably oriented. Speech is coherent, at times somewhat pressured. Abstraction fair. Computation impaired. Language function intact. Mood and affect remains somewhat hypomanic but improved. No suicidal or homicidal ideation. Laboratory Data: Reviewed. Impression: Schizoaffective disorder, bipolar type, depressed with psychotic features. Anxiety disorder unspecified. Impulse control disorder unspecified. Plan: No change from initial note. She is tolerating Abilify 15 mg, Prozac 80 mg a day. We will check labs level for the Depakote. Adjust as clinically indicated and maintain Seroquel, melatonin and she remains on hydroxyzine 25 mg t.i.d. and ReQuip 0.5 mg h.s. Assessment: Vital Signs/I&O: Vital Signs Date Time Temp Pulse Resp B/P (MAP) Pulse Ox O2 Delivery O2 Flow Rate FiO2 06/24/20 06:53 97.6 56 20 130/83 (99) 94 06/23/20 16:21 Room Air I & O 06/23/20 06/23/20 06/24/20 15:00 23:00 07:00 Intake Total 720 ml 480 ml Balance 720 ml 480 ml Labs: Laboratory Tests Test 06/24/20 06:27 White Blood Count 6.7 x10^3/uL (4.0-11.0) Red Blood Count 4.04 x10^6/uL (3.50-5.40) Hemoglobin 11.0 g/dL (12.0-15.5) L Hematocrit 33.4 % (36.0-47.0) L Mean Corpuscular Volume 83 fL (79-100) Mean Corpuscular Hemoglobin 27 pg (25-35) Mean Corpuscular Hemoglobin Concent 33 g/dL (31-37) Red Cell Distribution Width 16.3 % (11.5-14.5) H Platelet Count 299 x10^3/uL (140-400) Neutrophils (%) (Auto) 67 % (31-73) Lymphocytes (%) (Auto) 17 % (24-48) L Monocytes (%) (Auto) 9 % (0-9) Eosinophils (%) (Auto) 6 % (0-3) H Basophils (%) (Auto) 1 % (0-3) Neutrophils # (Auto) 4.5 x10^3uL (1.8-7.7) Lymphocytes # (Auto) 1.1 x10^3/uL (1.0-4.8) Monocytes # (Auto) 0.6 x10^3/uL (0.0-1.1) Eosinophils # (Auto) 0.4 x10^3/uL (0.0-0.7) Basophils # (Auto) 0.0 x10^3/uL (0.0-0.2) Sodium Level 136 mmol/L (136-145) Potassium Level 4.9 mmol/L (3.5-5.1) Chloride Level 101 mmol/L (98-107) Carbon Dioxide Level 29 mmol/L (21-32) Anion Gap 6 (6-14) Blood Urea Nitrogen 17 mg/dL (7-20) Creatinine 0.8 mg/dL (0.6-1.0) Estimated GFR (Cockcroft-Gault) 71.8 BUN/Creatinine Ratio 21 (6-20) H Glucose Level 92 mg/dL (70-99) Calcium Level 9.2 mg/dL (8.5-10.1) Total Bilirubin 0.2 mg/dL (0.2-1.0) Aspartate Amino Transferase (AST) 18 U/L (15-37) Alanine Aminotransferase (ALT) 20 U/L (14-59) Alkaline Phosphatase 92 U/L (46-116) Total Protein 6.7 g/dL (6.4-8.2) Albumin 3.1 g/dL (3.4-5.0) L Albumin/Globulin Ratio 0.9 (1.0-1.7) L Valproic Acid Level 41 mcg/mL (50-100) L Valproic Acid Last Dose Date 06/23/20 Valproic Acid Last Dose Time 2100 Current Medications: Meds: Laboratory Tests Test 06/24/20 06:27 White Blood Count 6.7 x10^3/uL Red Blood Count 4.04 x10^6/uL Hemoglobin 11.0 g/dL Hematocrit 33.4 % Mean Corpuscular Volume 83 fL Mean Corpuscular Hemoglobin 27 pg Mean Corpuscular Hemoglobin Concent 33 g/dL Red Cell Distribution Width 16.3 % Platelet Count 299 x10^3/uL Neutrophils (%) (Auto) 67 % Lymphocytes (%) (Auto) 17 % Monocytes (%) (Auto) 9 % Eosinophils (%) (Auto) 6 % Basophils (%) (Auto) 1 % Neutrophils # (Auto) 4.5 x10^3uL Lymphocytes # (Auto) 1.1 x10^3/uL Monocytes # (Auto) 0.6 x10^3/uL Eosinophils # (Auto) 0.4 x10^3/uL Basophils # (Auto) 0.0 x10^3/uL Sodium Level 136 mmol/L Potassium Level 4.9 mmol/L Chloride Level 101 mmol/L Carbon Dioxide Level 29 mmol/L Anion Gap 6 Blood Urea Nitrogen 17 mg/dL Creatinine 0.8 mg/dL Estimated GFR (Cockcroft-Gault) 71.8 BUN/Creatinine Ratio 21 Glucose Level 92 mg/dL Calcium Level 9.2 mg/dL Total Bilirubin 0.2 mg/dL Aspartate Amino Transf (AST/SGOT) 18 U/L Alanine Aminotransferase (ALT/SGPT) 20 U/L Alkaline Phosphatase 92 U/L Total Protein 6.7 g/dL Albumin 3.1 g/dL Albumin/Globulin Ratio 0.9 Valproic Acid (Depakene) Level 41 mcg/mL Valproic Acid Last Dose Date 06/23/20 Valproic Acid Last Dose Time 2100 Current Medications Medications (Trade) Dose Ordered Sig/Indra Route PRN Reason Start Time Stop Time Status Last Admin Dose Admin Acetaminophen (Tylenol) 650 mg PRN Q6HRS PRN PO MILD PAIN / TEMP > 100.3'F 06/21/20 16:15 Multi-Ingredient Ointment (Analgesic [place]) 1 joesph PRN QID PRN TP MUSCLE PAIN 06/21/20 16:15 Al Hydroxide/Mg Hydroxide (Mylanta Plus Xs) 15 ml PRN AFTMEALHC PRN PO DYSPEPSIA 06/21/20 16:15 Magnesium Hydroxide (Milk Of Magnesia) 2,400 mg PRN QHS PRN PO CONSTIPATION 06/21/20 16:15 Acetaminophen (Tylenol) 500 mg PRN Q6HRS PRN PO pain or fever 06/21/20 16:30 UNV Albuterol Sulfate (Ventolin) 2.5 mg PRN Q4HRS PRN IH FOR ASTHMA 06/21/20 16:30 UNV Amlodipine Besylate (Norvasc) 5 mg DAILY PO 06/22/20 09:00 06/23/20 08:37 Aripiprazole (Abilify) 15 mg DAILY PO 06/22/20 09:00 06/23/20 08:36 Aspirin (Aspirin Enteric Coated) 81 mg DAILY PO 06/22/20 09:00 06/23/20 08:37 Atorvastatin Calcium (Lipitor) 20 mg QHS PO 06/21/20 21:00 06/23/20 19:41 Calcium/Vitamin D (Oscal D 500mg/ 200uts) 1 tab BID PO 06/21/20 21:00 06/23/20 19:41 Vitamin D (Vitamin D3) 50,000 unit WEEKLY PO 06/25/20 09:00 Clonazepam (KlonoPIN) 0.5 mg PRN BID PRN PO ANXIETY / AGITATION 06/21/20 16:30 06/24/20 01:30 Cyanocobalamin (Vitamin B-12) 1,000 mcg QMONTH IM 07/17/20 09:00 Diclofenac Sodium (Voltaren) 2 joesph QID TP 06/21/20 17:00 06/23/20 19:44 Docusate Sodium (Colace) 100 mg BID PO 06/21/20 21:00 06/23/20 19:42 Furosemide (Lasix) 20 mg DAILY16 PO 06/22/20 16:00 06/23/20 16:42 Isosorbide Mononitrate (Imdur) 30 mg DAILY08 PO 06/22/20 08:00 06/23/20 08:36 Ketoconazole (Nizoral 2% Shampoo) 1 joesph PRN DAILY PRN TP DANDRUFF 06/21/20 16:30 Levothyroxine Sodium (Synthroid) 75 mcg DAILY06 PO 06/22/20 06:00 06/24/20 01:31 Metoprolol Tartrate (Lopressor) 12.5 mg BID PO 06/21/20 21:00 06/23/20 19:42 Pantoprazole Sodium (Protonix) 40 mg DAILY08 PO 06/22/20 08:00 06/23/20 08:37 Ropinirole HCl (Requip) 0.5 mg HS PO 06/21/20 21:00 06/23/20 19:42 Salsalate (Salsalate) 1,000 mg 2100 PO 06/21/20 21:00 06/23/20 19:40 Salsalate (Salsalate) 1,500 mg 0800 PO 06/22/20 08:00 06/23/20 08:37 Sennosides (Senna) 8.6 mg BID76 PO 06/21/20 18:00 06/23/20 05:00 DC 06/22/20 16:04 Tramadol HCl (Ultram) 50 mg PRN Q6HRS PRN PO PAIN 06/21/20 16:30 06/23/20 14:50 Triamcinolone Acetonide (Kenalog) 1 joesph PRN Q12HR PRN TP ITCHING 06/21/20 16:30 Vitamin A/Vitamin D (Vitamin A & D Ointment) 1 joesph PRN Q1HR PRN TP DRY SKIN / SCALING 06/21/20 16:30 Multi-Ingred Cream/Lotion/Oil/ Oint (Hydrocerin) 1 joesph BID TP 06/21/20 21:00 06/23/20 08:38 Fluoxetine HCl (PROzac) 80 mg DAILY08 PO 06/22/20 08:00 06/23/20 08:36 Non-Formulary Medication (Liraglutide (Saxenda)) 1.8 mg 0800 SQ 06/22/20 08:00 UNV Melatonin (Melatonin) 3 mg HS PO 06/21/20 21:00 06/23/20 19:41 Non-Formulary Medication (Olodaterol HCl (Striverdi Respimat)) 4 gm DAILY08 IH 06/22/20 08:00 UNV Potassium Chloride (Klor-Con) 10 meq TID PO 06/21/20 21:00 06/23/20 19:42 Quetiapine Fumarate (SEROquel) 300 mg DAILY08 PO 06/22/20 08:00 06/23/20 08:37 Quetiapine Fumarate (SEROquel) 600 mg HS PO 06/21/20 21:00 06/23/20 19:41 Hydroxyzine HCl (Atarax) 25 mg TID PO 06/21/20 21:00 06/23/20 19:41 Albuterol Sulfate (Ventolin Hfa Inhaler) 2 puff PRN Q4HRS PRN INH SHORTNESS OF BREATH 06/21/20 17:15 Divalproex Sodium (Depakote Er) 500 mg QHS PO 06/21/20 21:00 06/23/20 19:43 Divalproex Sodium (Depakote Er) 500 mg QHS PO 06/22/20 21:00 06/22/20 12:14 DC Sennosides (Senna) 8.6 mg BIDACBL PO 06/23/20 07:30 06/23/20 12:25 I have reviewed the current psychotropics carefully including drug interactions. Risk benefit ratio favors no change other than as noted in my dictated progress note. Diagnosis: Problems: (1) Schizoaffective disorder, bipolar type (2) Impulse control disorder, unspecified (3) Anxiety disorder, unspecified (4) Bipolar disorder, current episode depressed, severe, with psychotic features MICHAEL CLARK MD Jun 24, 2020 07:52
[2020-06-24] MEDS: SALSALATE 500 MG PO SCH ×2 (08:03→21:06)
[2020-06-24] MEDS: METOPROLOL TART IMMED RELEASE 25 MG TABLET. PO SCH ×2 (08:04→21:07)
[2020-06-24] MEDS: CALCIUM CARB/VIT D3 500/200 TABLET PO SCH ×2 (08:04→21:07)
[2020-06-24] MEDS: DOCUSATE SODIUM 100 MG CAPSULE PO SCH ×2 (08:04→21:07)
[2020-06-24] MEDS: hydrOXYzine HCL 25 MG TABLET PO SCH ×3 (08:04→21:05)
[2020-06-24] MEDS: ISOSORBIDE MONONITRATE ER 30 MG TAB.ER.24H PO SCH (08:05)
[2020-06-24] MEDS: amLODIPine BESYLATE 5 MG TABLET PO SCH (08:05)
[2020-06-24] MEDS: QUEtiapine 100 MG TABLET. PO SCH ×2 (08:05→21:06)
[2020-06-24] MEDS: FLUoxetine HCL 20 MG CAPSULE PO SCH (08:05)
[2020-06-24] MEDS: ARIPiprazole 15 MG TABLET PO SCH (08:05)
[2020-06-24] MEDS: POTASSIUM CHLORIDE 10 MEQ TABLET.ER. PO SCH ×3 (08:06→21:07)
[2020-06-24] MEDS: traMADol 50 MG TABLET PO PRN (08:06)
[2020-06-24] MEDS: PANTOPRAZOLE 40 MG TABLET. PO SCH (08:06)
[2020-06-24] MEDS: ASPIRIN ENTERIC COATED 81 MG TABLET.DR. PO SCH (08:06)
[2020-06-24] MEDS: SENNOSIDES 8.6 MG TABLET PO SCH ×2 (08:07→17:08)
[2020-06-24] MEDS: DICLOFENAC SODIUM 1% TOPICAL GEL 100GM TUBE. TP SCH ×4 (08:07→21:09)
[2020-06-24] MEDS: MINERAL OIL/PETROLATUM TOPICAL CREAM 113GM JAR. TP SCH ×2 (08:07→21:00)
[2020-06-24 16:13] VITALS: BP 127/78
[2020-06-24] MEDS: FUROSEMIDE 20 MG TABLET PO SCH (17:08)
[2020-06-24] MEDS ORDERED: DIVALPROEX ER 500 MG TAB.ER.24H PO SCH (21:00)
[2020-06-24] MEDS: ATORVASTATIN CALCIUM 20 MG TABLET PO SCH (21:07)
[2020-06-24] MEDS: MELATONIN 3 MG TABLET PO SCH (21:08)
[2020-06-24] MEDS: rOPINIRole 0.5 MG TABLET. PO SCH (21:08)
--- NOTE | 2020-06-24 22:11 | PDOC ---
Exam Note: [place] Note: Please also refer to the separate dictated note~for this date of service dictated separately.~Patient seen individually. Discussed the patient with Nursing staff reviewed the chart.~Reviewed interim history and current functioning. Reviewed vital signs,~Labs/ Radiology~and current medications noted below. Continue current treatment with the changes noted in the dictated addendum note Assessment: Vital Signs/I&O: Vital Signs Date Time Temp Pulse Resp B/P (MAP) Pulse Ox O2 Delivery O2 Flow Rate FiO2 06/24/20 21:07 63 127/78 06/24/20 16:13 98.4 20 95 06/23/20 16:21 Room Air I & O 06/23/20 06/23/20 06/24/20 15:00 23:00 07:00 Intake Total 720 ml 480 ml Balance 720 ml 480 ml Labs: Laboratory Tests Test 06/24/20 06:27 White Blood Count 6.7 x10^3/uL (4.0-11.0) Red Blood Count 4.04 x10^6/uL (3.50-5.40) Hemoglobin 11.0 g/dL (12.0-15.5) L Hematocrit 33.4 % (36.0-47.0) L Mean Corpuscular Volume 83 fL (79-100) Mean Corpuscular Hemoglobin 27 pg (25-35) Mean Corpuscular Hemoglobin Concent 33 g/dL (31-37) Red Cell Distribution Width 16.3 % (11.5-14.5) H Platelet Count 299 x10^3/uL (140-400) Neutrophils (%) (Auto) 67 % (31-73) Lymphocytes (%) (Auto) 17 % (24-48) L Monocytes (%) (Auto) 9 % (0-9) Eosinophils (%) (Auto) 6 % (0-3) H Basophils (%) (Auto) 1 % (0-3) Neutrophils # (Auto) 4.5 x10^3uL (1.8-7.7) Lymphocytes # (Auto) 1.1 x10^3/uL (1.0-4.8) Monocytes # (Auto) 0.6 x10^3/uL (0.0-1.1) Eosinophils # (Auto) 0.4 x10^3/uL (0.0-0.7) Basophils # (Auto) 0.0 x10^3/uL (0.0-0.2) Sodium Level 136 mmol/L (136-145) Potassium Level 4.9 mmol/L (3.5-5.1) Chloride Level 101 mmol/L (98-107) Carbon Dioxide Level 29 mmol/L (21-32) Anion Gap 6 (6-14) Blood Urea Nitrogen 17 mg/dL (7-20) Creatinine 0.8 mg/dL (0.6-1.0) Estimated GFR (Cockcroft-Gault) 71.8 BUN/Creatinine Ratio 21 (6-20) H Glucose Level 92 mg/dL (70-99) Calcium Level 9.2 mg/dL (8.5-10.1) Total Bilirubin 0.2 mg/dL (0.2-1.0) Aspartate Amino Transferase (AST) 18 U/L (15-37) Alanine Aminotransferase (ALT) 20 U/L (14-59) Alkaline Phosphatase 92 U/L (46-116) Total Protein 6.7 g/dL (6.4-8.2) Albumin 3.1 g/dL (3.4-5.0) L Albumin/Globulin Ratio 0.9 (1.0-1.7) L Valproic Acid Level 41 mcg/mL (50-100) L Valproic Acid Last Dose Date 06/23/20 Valproic Acid Last Dose Time 2100 Current Medications: Meds: Laboratory Tests Test 06/24/20 06:27 White Blood Count 6.7 x10^3/uL Red Blood Count 4.04 x10^6/uL Hemoglobin 11.0 g/dL Hematocrit 33.4 % Mean Corpuscular Volume 83 fL Mean Corpuscular Hemoglobin 27 pg Mean Corpuscular Hemoglobin Concent 33 g/dL Red Cell Distribution Width 16.3 % Platelet Count 299 x10^3/uL Neutrophils (%) (Auto) 67 % Lymphocytes (%) (Auto) 17 % Monocytes (%) (Auto) 9 % Eosinophils (%) (Auto) 6 % Basophils (%) (Auto) 1 % Neutrophils # (Auto) 4.5 x10^3uL Lymphocytes # (Auto) 1.1 x10^3/uL Monocytes # (Auto) 0.6 x10^3/uL Eosinophils # (Auto) 0.4 x10^3/uL Basophils # (Auto) 0.0 x10^3/uL Sodium Level 136 mmol/L Potassium Level 4.9 mmol/L Chloride Level 101 mmol/L Carbon Dioxide Level 29 mmol/L Anion Gap 6 Blood Urea Nitrogen 17 mg/dL Creatinine 0.8 mg/dL Estimated GFR (Cockcroft-Gault) 71.8 BUN/Creatinine Ratio 21 Glucose Level 92 mg/dL Calcium Level 9.2 mg/dL Total Bilirubin 0.2 mg/dL Aspartate Amino Transf (AST/SGOT) 18 U/L Alanine Aminotransferase (ALT/SGPT) 20 U/L Alkaline Phosphatase 92 U/L Total Protein 6.7 g/dL Albumin 3.1 g/dL Albumin/Globulin Ratio 0.9 Valproic Acid (Depakene) Level 41 mcg/mL Valproic Acid Last Dose Date 06/23/20 Valproic Acid Last Dose Time 2100 Current Medications Medications (Trade) Dose Ordered Sig/Indra Route PRN Reason Start Time Stop Time Status Last Admin Dose Admin Acetaminophen (Tylenol) 650 mg PRN Q6HRS PRN PO MILD PAIN / TEMP > 100.3'F 06/21/20 16:15 Multi-Ingredient Ointment (Analgesic [place]) 1 joesph PRN QID PRN TP MUSCLE PAIN 06/21/20 16:15 Al Hydroxide/Mg Hydroxide (Mylanta Plus Xs) 15 ml PRN AFTMEALHC PRN PO DYSPEPSIA 06/21/20 16:15 Magnesium Hydroxide (Milk Of Magnesia) 2,400 mg PRN QHS PRN PO CONSTIPATION 06/21/20 16:15 Acetaminophen (Tylenol) 500 mg PRN Q6HRS PRN PO pain or fever 06/21/20 16:30 UNV Albuterol Sulfate (Ventolin) 2.5 mg PRN Q4HRS PRN IH FOR ASTHMA 06/21/20 16:30 UNV Amlodipine Besylate (Norvasc) 5 mg DAILY PO 06/22/20 09:00 06/24/20 08:05 Aripiprazole (Abilify) 15 mg DAILY PO 06/22/20 09:00 06/24/20 08:05 Aspirin (Aspirin Enteric Coated) 81 mg DAILY PO 06/22/20 09:00 06/24/20 08:06 Atorvastatin Calcium (Lipitor) 20 mg QHS PO 06/21/20 21:00 06/24/20 21:07 Calcium/Vitamin D (Oscal D 500mg/ 200uts) 1 tab BID PO 06/21/20 21:00 06/24/20 21:07 Vitamin D (Vitamin D3) 50,000 unit WEEKLY PO 06/25/20 09:00 Clonazepam (KlonoPIN) 0.5 mg PRN BID PRN PO ANXIETY / AGITATION 06/21/20 16:30 06/24/20 01:30 Cyanocobalamin (Vitamin B-12) 1,000 mcg QMONTH IM 07/17/20 09:00 Diclofenac Sodium (Voltaren) 2 joesph QID TP 06/21/20 17:00 06/24/20 21:09 Docusate Sodium (Colace) 100 mg BID PO 06/21/20 21:00 06/24/20 21:07 Furosemide (Lasix) 20 mg DAILY16 PO 06/22/20 16:00 06/24/20 17:08 Isosorbide Mononitrate (Imdur) 30 mg DAILY08 PO 06/22/20 08:00 06/24/20 08:05 Ketoconazole (Nizoral 2% Shampoo) 1 joesph PRN DAILY PRN TP DANDRUFF 06/21/20 16:30 Levothyroxine Sodium (Synthroid) 75 mcg DAILY06 PO 06/22/20 06:00 06/24/20 01:31 Metoprolol Tartrate (Lopressor) 12.5 mg BID PO 06/21/20 21:00 06/24/20 21:07 Pantoprazole Sodium (Protonix) 40 mg DAILY08 PO 06/22/20 08:00 06/24/20 08:06 Ropinirole HCl (Requip) 0.5 mg HS PO 06/21/20 21:00 06/24/20 21:08 Salsalate (Salsalate) 1,000 mg 2100 PO 06/21/20 21:00 06/24/20 21:06 Salsalate (Salsalate) 1,500 mg 0800 PO 06/22/20 08:00 06/24/20 08:03 Sennosides (Senna) 8.6 mg BID76 PO 06/21/20 18:00 06/23/20 05:00 DC 06/22/20 16:04 Tramadol HCl (Ultram) 50 mg PRN Q6HRS PRN PO PAIN 06/21/20 16:30 06/24/20 08:06 Triamcinolone Acetonide (Kenalog) 1 joesph PRN Q12HR PRN TP ITCHING 06/21/20 16:30 Vitamin A/Vitamin D (Vitamin A & D Ointment) 1 joesph PRN Q1HR PRN TP DRY SKIN / SCALING 06/21/20 16:30 Multi-Ingred Cream/Lotion/Oil/ Oint (Hydrocerin) 1 joesph BID TP 06/21/20 21:00 06/24/20 08:07 Fluoxetine HCl (PROzac) 80 mg DAILY08 PO 06/22/20 08:00 06/24/20 08:05 Non-Formulary Medication (Liraglutide (Saxenda)) 1.8 mg 0800 SQ 06/22/20 08:00 UNV Melatonin (Melatonin) 3 mg HS PO 06/21/20 21:00 06/24/20 21:08 Non-Formulary Medication (Olodaterol HCl (Striverdi Respimat)) 4 gm DAILY08 IH 06/22/20 08:00 UNV Potassium Chloride (Klor-Con) 10 meq TID PO 06/21/20 21:00 06/24/20 21:07 Quetiapine Fumarate (SEROquel) 300 mg DAILY08 PO 06/22/20 08:00 06/24/20 08:05 Quetiapine Fumarate (SEROquel) 600 mg HS PO 06/21/20 21:00 06/24/20 21:06 Hydroxyzine HCl (Atarax) 25 mg TID PO 06/21/20 21:00 06/24/20 21:05 Albuterol Sulfate (Ventolin Hfa Inhaler) 2 puff PRN Q4HRS PRN INH SHORTNESS OF BREATH 06/21/20 17:15 Divalproex Sodium (Depakote Er) 500 mg QHS PO 06/21/20 21:00 06/24/20 17:35 DC 06/23/20 19:43 Divalproex Sodium (Depakote Er) 500 mg QHS PO 06/22/20 21:00 06/22/20 12:14 DC Sennosides (Senna) 8.6 mg BIDACBL PO 06/23/20 07:30 06/24/20 17:08 Divalproex Sodium (Depakote Er) 750 mg QHS PO 06/24/20 21:00 06/24/20 21:05 Current Medications Medications (Trade) Dose Ordered Sig/Indra Route PRN Reason Start Time Stop Time Status Last Admin Dose Admin Divalproex Sodium (Depakote Er) 750 mg QHS PO 06/24/20 21:00 06/24/20 21:05 I have reviewed the current psychotropics carefully including drug interactions. Risk benefit ratio favors no change other than as noted in my dictated progress note. Diagnosis: Problems: (1) Schizoaffective disorder, bipolar type (2) Impulse control disorder, unspecified (3) Anxiety disorder, unspecified (4) Bipolar disorder, current episode depressed, severe, with psychotic features MICHAEL CLARK MD Jun 24, 2020 22:11
[2020-06-25] MEDS: LEVOTHYROXINE 75 MCG TABLET PO SCH (01:41)
[2020-06-25] MEDS: traMADol 50 MG TABLET PO PRN (01:42)
[2020-06-25] MEDS: clonazePAM 0.5 MG TABLET PO PRN ×2 (01:42→16:42)
[2020-06-25 06:41] VITALS: BP 159/84
--- NOTE | 2020-06-25 06:45 | PDOC ---
Exam Note: [place] Note: This note is a late entry for 06/24/2020 covers elements not covered in my initial note. Subjective: The patient was seen individually in the evening of 06/24/2020 with Eden WOMACK, discussed and reviewed the chart. The patient just slept 4 hours previous night. Overall the patient has been tearful today, anxious. Per nursing report somewhat attention seeking. Albumin is low and hemoglobin 11. She has been somewhat delusional at times. Valproic acid level today is 41. Review of Systems: Ambulation impaired in wheelchair. No CV, , pulmonary, eye system symptoms on review. Mental Status Exam: The patient is reasonably oriented. Speech is coherent, has some latency, less pressured. Abstraction fair. Computation impaired. Language function intact. Mood and affect remains somewhat dysphoric, depressed but better than before. Laboratory Data: Reviewed. Impression: Schizoaffective disorder, bipolar type, mixed with psychotic features in partial remission. Anxiety disorder unspecified. Impulse control disorder unspecified. Plan: No change from initial note. Valproic acid level is subtherapeutic at 41 on Depakote ER 500 mg daily. We will increase to 750 mg p.o. h.s. Check CBC, CMP, valproic acid level in 3 days. Continue rest of the psychotropics unchanged. Consider reducing Prozac from 80 mg a day to 60 mg a day as it could be worsening her hypomania. Maintain Abilify, hydroxyzine, Klonopin p.r.n., Seroquel scheduled. She is on two atypical antipsychotics and we will try and simplify this once the valproic acid level is therapeutic. Assessment: Vital Signs/I&O: Vital Signs Date Time Temp Pulse Resp B/P (MAP) Pulse Ox O2 Delivery O2 Flow Rate FiO2 06/25/20 06:41 97.9 57 17 159/84 (109) 94 06/25/20 01:42 Room Air I & O 06/24/20 06/24/20 06/25/20 15:00 23:00 07:00 Intake Total 480 ml 480 ml Balance 480 ml 480 ml Current Medications: Meds: Current Medications Medications (Trade) Dose Ordered Sig/Indra Route PRN Reason Start Time Stop Time Status Last Admin Dose Admin Acetaminophen (Tylenol) 650 mg PRN Q6HRS PRN PO MILD PAIN / TEMP > 100.3'F 06/21/20 16:15 Multi-Ingredient Ointment (Analgesic [place]) 1 joesph PRN QID PRN TP MUSCLE PAIN 06/21/20 16:15 Al Hydroxide/Mg Hydroxide (Mylanta Plus Xs) 15 ml PRN AFTMEALHC PRN PO DYSPEPSIA 06/21/20 16:15 Magnesium Hydroxide (Milk Of Magnesia) 2,400 mg PRN QHS PRN PO CONSTIPATION 06/21/20 16:15 Acetaminophen (Tylenol) 500 mg PRN Q6HRS PRN PO pain or fever 06/21/20 16:30 UNV Albuterol Sulfate (Ventolin) 2.5 mg PRN Q4HRS PRN IH FOR ASTHMA 06/21/20 16:30 UNV Amlodipine Besylate (Norvasc) 5 mg DAILY PO 06/22/20 09:00 06/24/20 08:05 Aripiprazole (Abilify) 15 mg DAILY PO 06/22/20 09:00 06/24/20 08:05 Aspirin (Aspirin Enteric Coated) 81 mg DAILY PO 06/22/20 09:00 06/24/20 08:06 Atorvastatin Calcium (Lipitor) 20 mg QHS PO 06/21/20 21:00 06/24/20 21:07 Calcium/Vitamin D (Oscal D 500mg/ 200uts) 1 tab BID PO 06/21/20 21:00 06/24/20 21:07 Vitamin D (Vitamin D3) 50,000 unit WEEKLY PO 06/25/20 09:00 Clonazepam (KlonoPIN) 0.5 mg PRN BID PRN PO ANXIETY / AGITATION 06/21/20 16:30 06/25/20 01:42 Cyanocobalamin (Vitamin B-12) 1,000 mcg QMONTH IM 07/17/20 09:00 Diclofenac Sodium (Voltaren) 2 joesph QID TP 06/21/20 17:00 06/24/20 21:09 Docusate Sodium (Colace) 100 mg BID PO 06/21/20 21:00 06/24/20 21:07 Furosemide (Lasix) 20 mg DAILY16 PO 06/22/20 16:00 06/24/20 17:08 Isosorbide Mononitrate (Imdur) 30 mg DAILY08 PO 06/22/20 08:00 06/24/20 08:05 Ketoconazole (Nizoral 2% Shampoo) 1 joesph PRN DAILY PRN TP DANDRUFF 06/21/20 16:30 Levothyroxine Sodium (Synthroid) 75 mcg DAILY06 PO 06/22/20 06:00 06/25/20 01:41 Metoprolol Tartrate (Lopressor) 12.5 mg BID PO 06/21/20 21:00 06/24/20 21:07 Pantoprazole Sodium (Protonix) 40 mg DAILY08 PO 06/22/20 08:00 06/24/20 08:06 Ropinirole HCl (Requip) 0.5 mg HS PO 06/21/20 21:00 06/24/20 21:08 Salsalate (Salsalate) 1,000 mg 2100 PO 06/21/20 21:00 06/24/20 21:06 Salsalate (Salsalate) 1,500 mg 0800 PO 06/22/20 08:00 06/24/20 08:03 Sennosides (Senna) 8.6 mg BID76 PO 06/21/20 18:00 06/23/20 05:00 DC 06/22/20 16:04 Tramadol HCl (Ultram) 50 mg PRN Q6HRS PRN PO PAIN 06/21/20 16:30 06/25/20 01:42 Triamcinolone Acetonide (Kenalog) 1 joesph PRN Q12HR PRN TP ITCHING 06/21/20 16:30 Vitamin A/Vitamin D (Vitamin A & D Ointment) 1 joesph PRN Q1HR PRN TP DRY SKIN / SCALING 06/21/20 16:30 Multi-Ingred Cream/Lotion/Oil/ Oint (Hydrocerin) 1 joesph BID TP 06/21/20 21:00 06/24/20 08:07 Fluoxetine HCl (PROzac) 80 mg DAILY08 PO 06/22/20 08:00 06/24/20 08:05 Non-Formulary Medication (Liraglutide (Saxenda)) 1.8 mg 0800 SQ 06/22/20 08:00 UNV Melatonin (Melatonin) 3 mg HS PO 06/21/20 21:00 06/24/20 21:08 Non-Formulary Medication (Olodaterol HCl (Striverdi Respimat)) 4 gm DAILY08 IH 06/22/20 08:00 UNV Potassium Chloride (Klor-Con) 10 meq TID PO 06/21/20 21:00 06/24/20 21:07 Quetiapine Fumarate (SEROquel) 300 mg DAILY08 PO 06/22/20 08:00 06/24/20 08:05 Quetiapine Fumarate (SEROquel) 600 mg HS PO 06/21/20 21:00 06/24/20 21:06 Hydroxyzine HCl (Atarax) 25 mg TID PO 06/21/20 21:00 06/24/20 21:05 Albuterol Sulfate (Ventolin Hfa Inhaler) 2 puff PRN Q4HRS PRN INH SHORTNESS OF BREATH 06/21/20 17:15 Divalproex Sodium (Depakote Er) 500 mg QHS PO 06/21/20 21:00 06/24/20 17:35 DC 06/23/20 19:43 Divalproex Sodium (Depakote Er) 500 mg QHS PO 06/22/20 21:00 06/22/20 12:14 DC Sennosides (Senna) 8.6 mg BIDACBL PO 06/23/20 07:30 06/24/20 17:08 Divalproex Sodium (Depakote Er) 750 mg QHS PO 06/24/20 21:00 06/24/20 21:05 Current Medications Medications (Trade) Dose Ordered Sig/Indra Route PRN Reason Start Time Stop Time Status Last Admin Dose Admin Divalproex Sodium (Depakote Er) 750 mg QHS PO 06/24/20 21:00 06/24/20 21:05 I have reviewed the current psychotropics carefully including drug interactions. Risk benefit ratio favors no change other than as noted in my dictated progress note. Diagnosis: Problems: (1) Schizoaffective disorder, bipolar type (2) Impulse control disorder, unspecified (3) Anxiety disorder, unspecified (4) Bipolar disorder, current episode depressed, severe, with psychotic features MICHAEL CLARK MD Jun 25, 2020 06:45
[2020-06-25] MEDS: NON FORMULARY ITEM (Olodaterol HCl (Striverdi Respimat) 4 GM) IH SCH (07:30)
[2020-06-25] MEDS: LIRAGLUTIDE 1.8 MG SQ SCH (07:31)
[2020-06-25] MEDS: ISOSORBIDE MONONITRATE ER 30 MG TAB.ER.24H PO SCH (07:50)
[2020-06-25] MEDS: SENNOSIDES 8.6 MG TABLET PO SCH ×2 (07:50→16:42)
[2020-06-25] MEDS: PANTOPRAZOLE 40 MG TABLET. PO SCH (07:50)
[2020-06-25] MEDS: DOCUSATE SODIUM 100 MG CAPSULE PO SCH ×2 (07:50→20:07)
[2020-06-25] MEDS: POTASSIUM CHLORIDE 10 MEQ TABLET.ER. PO SCH ×3 (07:51→20:09)
[2020-06-25] MEDS: FLUoxetine HCL 20 MG CAPSULE PO SCH (07:51)
[2020-06-25] MEDS: ARIPiprazole 15 MG TABLET PO SCH (07:52)
[2020-06-25] MEDS: METOPROLOL TART IMMED RELEASE 25 MG TABLET. PO SCH ×2 (07:52→20:10)
[2020-06-25] MEDS: CALCIUM CARB/VIT D3 500/200 TABLET PO SCH ×2 (07:52→20:07)
[2020-06-25] MEDS: hydrOXYzine HCL 25 MG TABLET PO SCH ×3 (07:53→20:08)
[2020-06-25] MEDS: SALSALATE 500 MG PO SCH ×2 (07:53→20:08)
[2020-06-25] MEDS: QUEtiapine 100 MG TABLET. PO SCH ×2 (07:53→20:08)
[2020-06-25] MEDS: MINERAL OIL/PETROLATUM TOPICAL CREAM 113GM JAR. TP SCH ×2 (07:54→21:00)
[2020-06-25] MEDS: DICLOFENAC SODIUM 1% TOPICAL GEL 100GM TUBE. TP SCH ×4 (07:54→21:00)
[2020-06-25] MEDS: amLODIPine BESYLATE 5 MG TABLET PO SCH (07:54)
[2020-06-25] MEDS: ASPIRIN ENTERIC COATED 81 MG TABLET.DR. PO SCH (07:58)
[2020-06-25 15:56] VITALS: BP 159/72
[2020-06-25] MEDS: FUROSEMIDE 20 MG TABLET PO SCH (16:42)
[2020-06-25] MEDS: CHOLECALCIFEROL (VITAMIN D3) 50,000 UNIT CAPSULE PO SCH (16:42)
[2020-06-25] MEDS: MELATONIN 3 MG TABLET PO SCH (20:07)
[2020-06-25] MEDS: rOPINIRole 0.5 MG TABLET. PO SCH (20:08)
[2020-06-25] MEDS: DIVALPROEX ER 500 MG TAB.ER.24H PO SCH (20:09)
[2020-06-25] MEDS: ATORVASTATIN CALCIUM 20 MG TABLET PO SCH (20:09)
[2020-06-25] MEDS: DIVALPROEX ER 250 MG TAB.ER.24H. PO SCH (20:09)
--- NOTE | 2020-06-25 22:09 | PDOC ---
Exam Note: [place] Note: Please also refer to the separate dictated note~for this date of service dictated separately.~Patient seen individually. Discussed the patient with Nursing staff reviewed the chart.~Reviewed interim history and current functioning. Reviewed vital signs,~Labs/ Radiology~and current medications noted below. Continue current treatment with the changes noted in the dictated addendum note Assessment: Vital Signs/I&O: Vital Signs Date Time Temp Pulse Resp B/P (MAP) Pulse Ox O2 Delivery O2 Flow Rate FiO2 06/25/20 20:10 65 159/72 06/25/20 15:56 98.0 19 96 06/25/20 01:42 Room Air I & O 06/24/20 06/24/20 06/25/20 15:00 23:00 07:00 Intake Total 480 ml 480 ml Balance 480 ml 480 ml Current Medications: Meds: Current Medications Medications (Trade) Dose Ordered Sig/Indra Route PRN Reason Start Time Stop Time Status Last Admin Dose Admin Acetaminophen (Tylenol) 650 mg PRN Q6HRS PRN PO MILD PAIN / TEMP > 100.3'F 06/21/20 16:15 Multi-Ingredient Ointment (Analgesic [place]) 1 joesph PRN QID PRN TP MUSCLE PAIN 06/21/20 16:15 Al Hydroxide/Mg Hydroxide (Mylanta Plus Xs) 15 ml PRN AFTMEALHC PRN PO DYSPEPSIA 06/21/20 16:15 Magnesium Hydroxide (Milk Of Magnesia) 2,400 mg PRN QHS PRN PO CONSTIPATION 06/21/20 16:15 Acetaminophen (Tylenol) 500 mg PRN Q6HRS PRN PO pain or fever 06/21/20 16:30 UNV Albuterol Sulfate (Ventolin) 2.5 mg PRN Q4HRS PRN IH FOR ASTHMA 06/21/20 16:30 UNV Amlodipine Besylate (Norvasc) 5 mg DAILY PO 06/22/20 09:00 06/25/20 07:54 Aripiprazole (Abilify) 15 mg DAILY PO 06/22/20 09:00 06/25/20 07:52 Aspirin (Aspirin Enteric Coated) 81 mg DAILY PO 06/22/20 09:00 06/25/20 07:58 Atorvastatin Calcium (Lipitor) 20 mg QHS PO 06/21/20 21:00 06/25/20 20:09 Calcium/Vitamin D (Oscal D 500mg/ 200uts) 1 tab BID PO 06/21/20 21:00 06/25/20 20:07 Vitamin D (Vitamin D3) 50,000 unit WEEKLY PO 06/25/20 09:00 06/25/20 16:42 Clonazepam (KlonoPIN) 0.5 mg PRN BID PRN PO ANXIETY / AGITATION 06/21/20 16:30 06/25/20 16:42 Cyanocobalamin (Vitamin B-12) 1,000 mcg QMONTH IM 07/17/20 09:00 Diclofenac Sodium (Voltaren) 2 joesph QID TP 06/21/20 17:00 06/25/20 07:54 Docusate Sodium (Colace) 100 mg BID PO 06/21/20 21:00 06/25/20 20:07 Furosemide (Lasix) 20 mg DAILY16 PO 06/22/20 16:00 06/25/20 16:42 Isosorbide Mononitrate (Imdur) 30 mg DAILY08 PO 06/22/20 08:00 06/25/20 07:50 Ketoconazole (Nizoral 2% Shampoo) 1 joesph PRN DAILY PRN TP DANDRUFF 06/21/20 16:30 Levothyroxine Sodium (Synthroid) 75 mcg DAILY06 PO 06/22/20 06:00 06/25/20 01:41 Metoprolol Tartrate (Lopressor) 12.5 mg BID PO 06/21/20 21:00 06/25/20 20:10 Pantoprazole Sodium (Protonix) 40 mg DAILY08 PO 06/22/20 08:00 06/25/20 07:50 Ropinirole HCl (Requip) 0.5 mg HS PO 06/21/20 21:00 06/25/20 20:08 Salsalate (Salsalate) 1,000 mg 2100 PO 06/21/20 21:00 06/25/20 20:08 Salsalate (Salsalate) 1,500 mg 0800 PO 06/22/20 08:00 06/25/20 07:53 Sennosides (Senna) 8.6 mg BID76 PO 06/21/20 18:00 06/23/20 05:00 DC 06/22/20 16:04 Tramadol HCl (Ultram) 50 mg PRN Q6HRS PRN PO PAIN 06/21/20 16:30 06/25/20 01:42 Triamcinolone Acetonide (Kenalog) 1 joesph PRN Q12HR PRN TP ITCHING 06/21/20 16:30 Vitamin A/Vitamin D (Vitamin A & D Ointment) 1 joesph PRN Q1HR PRN TP DRY SKIN / SCALING 06/21/20 16:30 Multi-Ingred Cream/Lotion/Oil/ Oint (Hydrocerin) 1 joesph BID TP 06/21/20 21:00 06/25/20 07:54 Fluoxetine HCl (PROzac) 80 mg DAILY08 PO 06/22/20 08:00 06/25/20 07:51 Non-Formulary Medication (Liraglutide (Saxenda)) 1.8 mg 0800 SQ 06/22/20 08:00 UNV Melatonin (Melatonin) 3 mg HS PO 06/21/20 21:00 06/25/20 20:07 Non-Formulary Medication (Olodaterol HCl (Striverdi Respimat)) 4 gm DAILY08 IH 06/22/20 08:00 UNV Potassium Chloride (Klor-Con) 10 meq TID PO 06/21/20 21:00 06/25/20 20:09 Quetiapine Fumarate (SEROquel) 300 mg DAILY08 PO 06/22/20 08:00 06/25/20 07:53 Quetiapine Fumarate (SEROquel) 600 mg HS PO 06/21/20 21:00 06/25/20 20:08 Hydroxyzine HCl (Atarax) 25 mg TID PO 06/21/20 21:00 06/25/20 20:08 Albuterol Sulfate (Ventolin Hfa Inhaler) 2 puff PRN Q4HRS PRN INH SHORTNESS OF BREATH 06/21/20 17:15 Divalproex Sodium (Depakote Er) 500 mg QHS PO 06/21/20 21:00 06/24/20 17:35 DC 06/23/20 19:43 Divalproex Sodium (Depakote Er) 500 mg QHS PO 06/22/20 21:00 06/22/20 12:14 DC Sennosides (Senna) 8.6 mg BIDACBL PO 06/23/20 07:30 06/25/20 16:42 Divalproex Sodium (Depakote Er) 750 mg QHS PO 06/24/20 21:00 06/25/20 19:31 DC 06/24/20 21:05 Divalproex Sodium (Depakote Er) 500 mg QHS PO 06/25/20 21:00 06/25/20 20:09 Divalproex Sodium (Depakote Er) 250 mg QHS PO 06/25/20 21:00 06/25/20 20:09 Current Medications Medications (Trade) Dose Ordered Sig/Indra Route PRN Reason Start Time Stop Time Status Last Admin Dose Admin Vitamin D (Vitamin D3) 50,000 unit WEEKLY PO 06/25/20 09:00 06/25/20 16:42 Divalproex Sodium (Depakote Er) 500 mg QHS PO 06/25/20 21:00 06/25/20 20:09 Divalproex Sodium (Depakote Er) 250 mg QHS PO 06/25/20 21:00 06/25/20 20:09 I have reviewed the current psychotropics carefully including drug interactions. Risk benefit ratio favors no change other than as noted in my dictated progress note. Diagnosis: Problems: (1) Schizoaffective disorder, bipolar type (2) Impulse control disorder, unspecified (3) Anxiety disorder, unspecified (4) Bipolar disorder, current episode depressed, severe, with psychotic features MICHAEL CLARK MD Jun 25, 2020 22:09
[2020-06-26] MEDS: LEVOTHYROXINE 75 MCG TABLET PO SCH (05:53)
[2020-06-26 06:15] VITALS: BP 131/81
--- NOTE | 2020-06-26 07:01 | PDOC ---
Exam Note: [place] Note: This note is a late entry for 06/25/2020 covers elements not covered in my initial note. Subjective: The patient was seen individually in the evening of 06/25/2020 with Eden WOMACK, discussed and reviewed the chart. The patient just slept 2 hours previous night. Yesterday the patient was quite weepy, tearful. Today she is calmer, pleasant. We will repeat valproic acid level on 06/27 since Depakote was increased yesterday. Review of Systems: Ambulation impaired in wheelchair. No CV, , pulmonary, eye system symptoms on review. Mental Status Exam: The patient is reasonably oriented. Speech has some latency, coherent. Abstraction fair. Computation impaired. Language function intact. Mood and affect withdrawn. Laboratory Data: Reviewed. Impression: Schizoaffective disorder, bipolar type, mixed with psychotic features in partial remission. Anxiety disorder unspecified. Impulse control disorder unspecified. Plan: No change from initial note. Assessment: Vital Signs/I&O: Vital Signs Date Time Temp Pulse Resp B/P (MAP) Pulse Ox O2 Delivery O2 Flow Rate FiO2 06/26/20 06:15 97.8 60 16 131/81 (98) 94 Room Air I & O 06/25/20 06/25/20 06/26/20 15:00 23:00 07:00 Intake Total 720 ml 480 ml 120 ml Balance 720 ml 480 ml 120 ml Current Medications: Meds: Current Medications Medications (Trade) Dose Ordered Sig/Indra Route PRN Reason Start Time Stop Time Status Last Admin Dose Admin Acetaminophen (Tylenol) 650 mg PRN Q6HRS PRN PO MILD PAIN / TEMP > 100.3'F 06/21/20 16:15 Multi-Ingredient Ointment (Analgesic [place]) 1 joesph PRN QID PRN TP MUSCLE PAIN 06/21/20 16:15 Al Hydroxide/Mg Hydroxide (Mylanta Plus Xs) 15 ml PRN AFTMEALHC PRN PO DYSPEPSIA 06/21/20 16:15 Magnesium Hydroxide (Milk Of Magnesia) 2,400 mg PRN QHS PRN PO CONSTIPATION 06/21/20 16:15 Acetaminophen (Tylenol) 500 mg PRN Q6HRS PRN PO pain or fever 06/21/20 16:30 UNV Albuterol Sulfate (Ventolin) 2.5 mg PRN Q4HRS PRN IH FOR ASTHMA 06/21/20 16:30 UNV Amlodipine Besylate (Norvasc) 5 mg DAILY PO 06/22/20 09:00 06/25/20 07:54 Aripiprazole (Abilify) 15 mg DAILY PO 06/22/20 09:00 06/25/20 07:52 Aspirin (Aspirin Enteric Coated) 81 mg DAILY PO 06/22/20 09:00 06/25/20 07:58 Atorvastatin Calcium (Lipitor) 20 mg QHS PO 06/21/20 21:00 06/25/20 20:09 Calcium/Vitamin D (Oscal D 500mg/ 200uts) 1 tab BID PO 06/21/20 21:00 06/25/20 20:07 Vitamin D (Vitamin D3) 50,000 unit WEEKLY PO 06/25/20 09:00 06/25/20 16:42 Clonazepam (KlonoPIN) 0.5 mg PRN BID PRN PO ANXIETY / AGITATION 06/21/20 16:30 06/25/20 16:42 Cyanocobalamin (Vitamin B-12) 1,000 mcg QMONTH IM 07/17/20 09:00 Diclofenac Sodium (Voltaren) 2 joesph QID TP 06/21/20 17:00 06/25/20 07:54 Docusate Sodium (Colace) 100 mg BID PO 06/21/20 21:00 06/25/20 20:07 Furosemide (Lasix) 20 mg DAILY16 PO 06/22/20 16:00 06/25/20 16:42 Isosorbide Mononitrate (Imdur) 30 mg DAILY08 PO 06/22/20 08:00 06/25/20 07:50 Ketoconazole (Nizoral 2% Shampoo) 1 joesph PRN DAILY PRN TP DANDRUFF 06/21/20 16:30 Levothyroxine Sodium (Synthroid) 75 mcg DAILY06 PO 06/22/20 06:00 06/26/20 05:53 Metoprolol Tartrate (Lopressor) 12.5 mg BID PO 06/21/20 21:00 06/25/20 20:10 Pantoprazole Sodium (Protonix) 40 mg DAILY08 PO 06/22/20 08:00 06/25/20 07:50 Ropinirole HCl (Requip) 0.5 mg HS PO 06/21/20 21:00 06/25/20 20:08 Salsalate (Salsalate) 1,000 mg 2100 PO 06/21/20 21:00 06/25/20 20:08 Salsalate (Salsalate) 1,500 mg 0800 PO 06/22/20 08:00 06/25/20 07:53 Sennosides (Senna) 8.6 mg BID76 PO 06/21/20 18:00 06/23/20 05:00 DC 06/22/20 16:04 Tramadol HCl (Ultram) 50 mg PRN Q6HRS PRN PO PAIN 06/21/20 16:30 06/25/20 01:42 Triamcinolone Acetonide (Kenalog) 1 joesph PRN Q12HR PRN TP ITCHING 06/21/20 16:30 Vitamin A/Vitamin D (Vitamin A & D Ointment) 1 joesph PRN Q1HR PRN TP DRY SKIN / SCALING 06/21/20 16:30 Multi-Ingred Cream/Lotion/Oil/ Oint (Hydrocerin) 1 joesph BID TP 06/21/20 21:00 06/25/20 07:54 Fluoxetine HCl (PROzac) 80 mg DAILY08 PO 06/22/20 08:00 06/25/20 07:51 Non-Formulary Medication (Liraglutide (Saxenda)) 1.8 mg 0800 SQ 06/22/20 08:00 UNV Melatonin (Melatonin) 3 mg HS PO 06/21/20 21:00 06/25/20 20:07 Non-Formulary Medication (Olodaterol HCl (Striverdi Respimat)) 4 gm DAILY08 IH 06/22/20 08:00 UNV Potassium Chloride (Klor-Con) 10 meq TID PO 06/21/20 21:00 06/25/20 20:09 Quetiapine Fumarate (SEROquel) 300 mg DAILY08 PO 06/22/20 08:00 06/25/20 07:53 Quetiapine Fumarate (SEROquel) 600 mg HS PO 06/21/20 21:00 06/25/20 20:08 Hydroxyzine HCl (Atarax) 25 mg TID PO 06/21/20 21:00 06/25/20 20:08 Albuterol Sulfate (Ventolin Hfa Inhaler) 2 puff PRN Q4HRS PRN INH SHORTNESS OF BREATH 06/21/20 17:15 Divalproex Sodium (Depakote Er) 500 mg QHS PO 06/21/20 21:00 06/24/20 17:35 DC 06/23/20 19:43 Divalproex Sodium (Depakote Er) 500 mg QHS PO 06/22/20 21:00 06/22/20 12:14 DC Sennosides (Senna) 8.6 mg BIDACBL PO 06/23/20 07:30 06/25/20 16:42 Divalproex Sodium (Depakote Er) 750 mg QHS PO 06/24/20 21:00 06/25/20 19:31 DC 06/24/20 21:05 Divalproex Sodium (Depakote Er) 500 mg QHS PO 06/25/20 21:00 06/25/20 20:09 Divalproex Sodium (Depakote Er) 250 mg QHS PO 06/25/20 21:00 06/25/20 20:09 Current Medications Medications (Trade) Dose Ordered Sig/Indra Route PRN Reason Start Time Stop Time Status Last Admin Dose Admin Vitamin D (Vitamin D3) 50,000 unit WEEKLY PO 06/25/20 09:00 06/25/20 16:42 Divalproex Sodium (Depakote Er) 500 mg QHS PO 06/25/20 21:00 06/25/20 20:09 Divalproex Sodium (Depakote Er) 250 mg QHS PO 06/25/20 21:00 06/25/20 20:09 I have reviewed the current psychotropics carefully including drug interactions. Risk benefit ratio favors no change other than as noted in my dictated progress note. Diagnosis: Problems: (1) Schizoaffective disorder, bipolar type (2) Impulse control disorder, unspecified (3) Anxiety disorder, unspecified (4) Bipolar disorder, current episode depressed, severe, with psychotic features MICHAEL CLARK MD Jun 26, 2020 07:01
[2020-06-26] MEDS: LIRAGLUTIDE 1.8 MG SQ SCH (08:00)
[2020-06-26] MEDS: NON FORMULARY ITEM (Olodaterol HCl (Striverdi Respimat) 4 GM) IH SCH (08:00)
[2020-06-26] MEDS: SENNOSIDES 8.6 MG TABLET PO SCH ×2 (08:33→12:48)
[2020-06-26] MEDS: ARIPiprazole 15 MG TABLET PO SCH (08:33)
[2020-06-26] MEDS: PANTOPRAZOLE 40 MG TABLET. PO SCH (08:34)
[2020-06-26] MEDS: DOCUSATE SODIUM 100 MG CAPSULE PO SCH ×2 (08:34→20:26)
[2020-06-26] MEDS: ASPIRIN ENTERIC COATED 81 MG TABLET.DR. PO SCH (08:34)
[2020-06-26] MEDS: QUEtiapine 100 MG TABLET. PO SCH ×2 (08:34→20:28)
[2020-06-26] MEDS: ISOSORBIDE MONONITRATE ER 30 MG TAB.ER.24H PO SCH (08:34)
[2020-06-26] MEDS: POTASSIUM CHLORIDE 10 MEQ TABLET.ER. PO SCH ×3 (08:35→20:26)
[2020-06-26] MEDS: amLODIPine BESYLATE 5 MG TABLET PO SCH (08:35)
[2020-06-26] MEDS: FLUoxetine HCL 20 MG CAPSULE PO SCH (08:36)
[2020-06-26] MEDS: SALSALATE 500 MG PO SCH ×2 (08:36→20:26)
[2020-06-26] MEDS: clonazePAM 0.5 MG TABLET PO PRN ×2 (08:37→15:51)
[2020-06-26] MEDS: METOPROLOL TART IMMED RELEASE 25 MG TABLET. PO SCH ×2 (08:37→20:28)
[2020-06-26] MEDS: hydrOXYzine HCL 25 MG TABLET PO SCH ×3 (08:37→20:27)
[2020-06-26] MEDS: CALCIUM CARB/VIT D3 500/200 TABLET PO SCH ×2 (08:37→20:26)
[2020-06-26] MEDS: DICLOFENAC SODIUM 1% TOPICAL GEL 100GM TUBE. TP SCH ×4 (08:40→20:28)
[2020-06-26] MEDS: MINERAL OIL/PETROLATUM TOPICAL CREAM 113GM JAR. TP SCH ×2 (08:40→20:29)
[2020-06-26] MEDS: FUROSEMIDE 20 MG TABLET PO SCH (15:52)
[2020-06-26 16:16] VITALS: BP 135/57
[2020-06-26] MEDS: MELATONIN 3 MG TABLET PO SCH (20:26)
[2020-06-26] MEDS: ATORVASTATIN CALCIUM 20 MG TABLET PO SCH (20:26)
[2020-06-26] MEDS: rOPINIRole 0.5 MG TABLET. PO SCH (20:27)
[2020-06-26] MEDS: DIVALPROEX ER 250 MG TAB.ER.24H. PO SCH (20:27)
[2020-06-26] MEDS: DIVALPROEX ER 500 MG TAB.ER.24H PO SCH (20:27)
[2020-06-26] MEDS ORDERED: FUROSEMIDE 20 MG TABLET PO ONE (21:15)
--- NOTE | 2020-06-26 22:15 | RAD ---
Exam: Chest one view INDICATION: Short of air TECHNIQUE: Frontal view of the chest Comparisons: 06/20/2020 FINDINGS: The cardiomediastinal silhouette and pulmonary vessels are within normal limits. Hazy opacities lungs bilaterally. Small to moderate-sized left pleural effusion. IMPRESSION: Findings likely related to pulmonary edema with small to moderate left pleural effusion. Superimposed infectious process is difficult to exclude. Electronically signed by: Kwasi Gross MD (06/26/2020 10:12 PM) [facility]
--- NOTE | 2020-06-26 23:17 | PDOC ---
Exam Note: [place] Note: Please also refer to the separate dictated note~for this date of service dictated separately.~Patient seen individually. Discussed the patient with Nursing staff reviewed the chart.~Reviewed interim history and current functioning. Reviewed vital signs,~Labs/ Radiology~and current medications noted below. Continue current treatment with the changes noted in the dictated addendum note Assessment: Vital Signs/I&O: Vital Signs Date Time Temp Pulse Resp B/P (MAP) Pulse Ox O2 Delivery O2 Flow Rate FiO2 06/26/20 20:28 70 135/57 06/26/20 16:16 97.8 16 91 06/26/20 06:15 Room Air I & O 06/25/20 06/25/20 06/26/20 15:00 23:00 07:00 Intake Total 720 ml 480 ml 120 ml Balance 720 ml 480 ml 120 ml Current Medications: Meds: Current Medications Medications (Trade) Dose Ordered Sig/Indra Route PRN Reason Start Time Stop Time Status Last Admin Dose Admin Acetaminophen (Tylenol) 650 mg PRN Q6HRS PRN PO MILD PAIN / TEMP > 100.3'F 06/21/20 16:15 Multi-Ingredient Ointment (Analgesic [place]) 1 joesph PRN QID PRN TP MUSCLE PAIN 06/21/20 16:15 Al Hydroxide/Mg Hydroxide (Mylanta Plus Xs) 15 ml PRN AFTMEALHC PRN PO DYSPEPSIA 06/21/20 16:15 Magnesium Hydroxide (Milk Of Magnesia) 2,400 mg PRN QHS PRN PO CONSTIPATION 06/21/20 16:15 Acetaminophen (Tylenol) 500 mg PRN Q6HRS PRN PO pain or fever 06/21/20 16:30 UNV Albuterol Sulfate (Ventolin) 2.5 mg PRN Q4HRS PRN IH FOR ASTHMA 06/21/20 16:30 UNV Amlodipine Besylate (Norvasc) 5 mg DAILY PO 06/22/20 09:00 06/26/20 08:35 Aripiprazole (Abilify) 15 mg DAILY PO 06/22/20 09:00 06/26/20 08:33 Aspirin (Aspirin Enteric Coated) 81 mg DAILY PO 06/22/20 09:00 06/26/20 08:34 Atorvastatin Calcium (Lipitor) 20 mg QHS PO 06/21/20 21:00 06/26/20 20:26 Calcium/Vitamin D (Oscal D 500mg/ 200uts) 1 tab BID PO 06/21/20 21:00 06/26/20 20:26 Vitamin D (Vitamin D3) 50,000 unit WEEKLY PO 06/25/20 09:00 06/25/20 16:42 Clonazepam (KlonoPIN) 0.5 mg PRN BID PRN PO ANXIETY / AGITATION 06/21/20 16:30 06/26/20 15:51 Cyanocobalamin (Vitamin B-12) 1,000 mcg QMONTH IM 07/17/20 09:00 Diclofenac Sodium (Voltaren) 2 joesph QID TP 06/21/20 17:00 06/26/20 20:28 Docusate Sodium (Colace) 100 mg BID PO 06/21/20 21:00 06/26/20 20:26 Furosemide (Lasix) 20 mg DAILY16 PO 06/22/20 16:00 06/26/20 15:52 Isosorbide Mononitrate (Imdur) 30 mg DAILY08 PO 06/22/20 08:00 06/26/20 08:34 Ketoconazole (Nizoral 2% Shampoo) 1 joesph PRN DAILY PRN TP DANDRUFF 06/21/20 16:30 Levothyroxine Sodium (Synthroid) 75 mcg DAILY06 PO 06/22/20 06:00 06/26/20 05:53 Metoprolol Tartrate (Lopressor) 12.5 mg BID PO 06/21/20 21:00 06/26/20 20:28 Pantoprazole Sodium (Protonix) 40 mg DAILY08 PO 06/22/20 08:00 06/26/20 08:34 Ropinirole HCl (Requip) 0.5 mg HS PO 06/21/20 21:00 06/26/20 20:27 Salsalate (Salsalate) 1,000 mg 2100 PO 06/21/20 21:00 06/26/20 20:26 Salsalate (Salsalate) 1,500 mg 0800 PO 06/22/20 08:00 06/26/20 08:36 Sennosides (Senna) 8.6 mg BID76 PO 06/21/20 18:00 06/23/20 05:00 DC 06/22/20 16:04 Tramadol HCl (Ultram) 50 mg PRN Q6HRS PRN PO PAIN 06/21/20 16:30 06/25/20 01:42 Triamcinolone Acetonide (Kenalog) 1 joesph PRN Q12HR PRN TP ITCHING 06/21/20 16:30 Vitamin A/Vitamin D (Vitamin A & D Ointment) 1 joesph PRN Q1HR PRN TP DRY SKIN / SCALING 06/21/20 16:30 Multi-Ingred Cream/Lotion/Oil/ Oint (Hydrocerin) 1 joesph BID TP 06/21/20 21:00 06/26/20 08:40 Fluoxetine HCl (PROzac) 80 mg DAILY08 PO 06/22/20 08:00 06/26/20 08:36 Non-Formulary Medication (Liraglutide (Saxenda)) 1.8 mg 0800 SQ 06/22/20 08:00 UNV Melatonin (Melatonin) 3 mg HS PO 06/21/20 21:00 06/26/20 20:26 Non-Formulary Medication (Olodaterol HCl (Striverdi Respimat)) 4 gm DAILY08 IH 06/22/20 08:00 UNV Potassium Chloride (Klor-Con) 10 meq TID PO 06/21/20 21:00 06/26/20 20:26 Quetiapine Fumarate (SEROquel) 300 mg DAILY08 PO 06/22/20 08:00 06/26/20 08:34 Quetiapine Fumarate (SEROquel) 600 mg HS PO 06/21/20 21:00 06/26/20 20:28 Hydroxyzine HCl (Atarax) 25 mg TID PO 06/21/20 21:00 06/26/20 20:27 Albuterol Sulfate (Ventolin Hfa Inhaler) 2 puff PRN Q4HRS PRN INH SHORTNESS OF BREATH 06/21/20 17:15 Divalproex Sodium (Depakote Er) 500 mg QHS PO 06/21/20 21:00 06/24/20 17:35 DC 06/23/20 19:43 Divalproex Sodium (Depakote Er) 500 mg QHS PO 06/22/20 21:00 06/22/20 12:14 DC Sennosides (Senna) 8.6 mg BIDACBL PO 06/23/20 07:30 06/26/20 12:48 Divalproex Sodium (Depakote Er) 750 mg QHS PO 06/24/20 21:00 06/25/20 19:31 DC 06/24/20 21:05 Divalproex Sodium (Depakote Er) 500 mg QHS PO 06/25/20 21:00 06/26/20 20:27 Divalproex Sodium (Depakote Er) 250 mg QHS PO 06/25/20 21:00 06/26/20 20:27 Furosemide (Lasix) 60 mg 1X ONCE PO 06/26/20 21:15 06/26/20 22:10 DC I have reviewed the current psychotropics carefully including drug interactions. Risk benefit ratio favors no change other than as noted in my dictated progress note. Diagnosis: Problems: (1) Schizoaffective disorder, bipolar type (2) Impulse control disorder, unspecified (3) Anxiety disorder, unspecified (4) Bipolar disorder, current episode depressed, severe, with psychotic features (5) Schizoaffective disorder MICHAEL CLARK MD Jun 26, 2020 23:17
[2020-06-27] MEDS: LEVOTHYROXINE 75 MCG TABLET PO SCH (05:51)
[2020-06-27 05:54] LABS: BASO % 0 % (0-3); EOS # 0.3 x10^3/uL (0.0-0.7); EOS % 6 % (0-3); HEMOGLOBIN 10.9 g/dL (12.0-15.5); LYMPH # 1.2 x10^3/uL (1.0-4.8); LYMPH % 22 % (24-48); MEAN CORPUSCULAR HEMOGLOBIN 27 pg (25-35); MEAN CORPUSCULAR HGB CONC 33 g/dL (31-37); MEAN CORPUSCULAR VOLUME 83 fL (79-100); MONO # 0.5 x10^3/uL (0.0-1.1); MONO % 10 % (0-9); NEUT # 3.3 x10^3uL (1.8-7.7); NEUT % 61 % (31-73); PLATELET COUNT 268 x10^3/uL (140-400); RED BLOOD COUNT 3.99 x10^6/uL (3.50-5.40); RED CELL DISTRIBUTION WIDTH 16.3 % (11.5-14.5); WHITE BLOOD COUNT 5.3 x10^3/uL (4.0-11.0)
[2020-06-27 06:07] VITALS: BP 135/85
[2020-06-27 06:10] LABS: ALBUMIN 2.9 g/dL (3.4-5.0); ALBUMIN/GLOBULIN RATIO 0.8 (1.0-1.7); ALK PHOS 90 U/L (46-116); ALT (SGPT) 18 U/L (14-59); ANION GAP 7 (6-14); AST (SGOT) 17 U/L (15-37); BLOOD UREA NITROGEN 17 mg/dL (7-20); BUN/CREATININE RATIO 21 (6-20); CALCIUM 9.1 mg/dL (8.5-10.1); CARBON DIOXIDE 29 mmol/L (21-32); CHLORIDE 102 mmol/L (98-107); CREATININE 0.8 mg/dL (0.6-1.0); GFR 71.8; GLUCOSE 93 mg/dL (70-99); POTASSIUM 4.4 mmol/L (3.5-5.1); SODIUM 138 mmol/L (136-145); TOTAL BILIRUBIN 0.2 mg/dL (0.2-1.0); TOTAL PROTEIN 6.5 g/dL (6.4-8.2)
[2020-06-27 06:11] LABS: VAL ACID 52 mcg/mL (50-100)
[2020-06-27] MEDS: NON FORMULARY ITEM (Olodaterol HCl (Striverdi Respimat) 4 GM) IH SCH (08:00)
[2020-06-27] MEDS: LIRAGLUTIDE 1.8 MG SQ SCH (08:00)
[2020-06-27] MEDS: ARIPiprazole 15 MG TABLET PO SCH (08:08)
[2020-06-27] MEDS: POTASSIUM CHLORIDE 10 MEQ TABLET.ER. PO SCH ×2 (08:08→13:12)
[2020-06-27] MEDS: CALCIUM CARB/VIT D3 500/200 TABLET PO SCH ×2 (08:09→21:00)
[2020-06-27] MEDS: ASPIRIN ENTERIC COATED 81 MG TABLET.DR. PO SCH (08:09)
[2020-06-27] MEDS: ISOSORBIDE MONONITRATE ER 30 MG TAB.ER.24H PO SCH (08:09)
[2020-06-27] MEDS: hydrOXYzine HCL 25 MG TABLET PO SCH ×3 (08:09→20:33)
[2020-06-27] MEDS: SENNOSIDES 8.6 MG TABLET PO SCH ×2 (08:10→13:11)
[2020-06-27] MEDS: DOCUSATE SODIUM 100 MG CAPSULE PO SCH ×2 (08:10→20:31)
[2020-06-27] MEDS: PANTOPRAZOLE 40 MG TABLET. PO SCH (08:12)
[2020-06-27] MEDS: METOPROLOL TART IMMED RELEASE 25 MG TABLET. PO SCH ×2 (08:12→20:31)
[2020-06-27] MEDS: QUEtiapine 100 MG TABLET. PO SCH ×2 (08:13→20:32)
[2020-06-27] MEDS: clonazePAM 0.5 MG TABLET PO PRN ×2 (08:14→18:16)
[2020-06-27] MEDS: FLUoxetine HCL 20 MG CAPSULE PO SCH (08:14)
[2020-06-27] MEDS: amLODIPine BESYLATE 5 MG TABLET PO SCH (08:14)
[2020-06-27] MEDS: SALSALATE 500 MG PO SCH ×2 (08:15→20:33)
[2020-06-27] MEDS: DICLOFENAC SODIUM 1% TOPICAL GEL 100GM TUBE. TP SCH ×4 (09:00→20:33)
[2020-06-27] MEDS: MINERAL OIL/PETROLATUM TOPICAL CREAM 113GM JAR. TP SCH ×2 (13:13→20:34)
[2020-06-27 15:46] VITALS: BP 141/65
[2020-06-27] MEDS: FUROSEMIDE 40 MG TABLET PO SCH (17:23)
[2020-06-27] MEDS: ATORVASTATIN CALCIUM 20 MG TABLET PO SCH (20:30)
[2020-06-27] MEDS: DIVALPROEX ER 250 MG TAB.ER.24H. PO SCH (20:31)
[2020-06-27] MEDS: DIVALPROEX ER 500 MG TAB.ER.24H PO SCH (20:31)
[2020-06-27] MEDS: rOPINIRole 0.5 MG TABLET. PO SCH (20:32)
[2020-06-27] MEDS: MELATONIN 3 MG TABLET PO SCH (20:32)
[2020-06-27] MEDS: POTASSIUM CHLORIDE 20 MEQ TABLET.ER. PO SCH (20:33)
--- NOTE | 2020-06-27 22:30 | PDOC ---
Exam Note: [place] Note: Please also refer to the separate dictated note~for this date of service dictated separately.~Patient seen individually. Discussed the patient with Nursing staff reviewed the chart.~Reviewed interim history and current functioning. Reviewed vital signs,~Labs/ Radiology~and current medications noted below. Continue current treatment with the changes noted in the dictated addendum note Assessment: Vital Signs/I&O: Vital Signs Date Time Temp Pulse Resp B/P (MAP) Pulse Ox O2 Delivery O2 Flow Rate FiO2 06/27/20 20:31 66 141/65 06/27/20 15:46 98.1 18 93 06/27/20 06:07 Nasal Cannula 2.0 I & O 0 06/26/20 06/26/20 06/27/20 15:00 23:00 07:00 Intake Total 840 ml 360 ml Balance 840 ml 360 ml Labs: Laboratory Tests Test 06/27/20 05:40 White Blood Count 5.3 x10^3/uL (4.0-11.0) Red Blood Count 3.99 x10^6/uL (3.50-5.40) Hemoglobin 10.9 g/dL (12.0-15.5) L Hematocrit 33.0 % (36.0-47.0) L Mean Corpuscular Volume 83 fL (79-100) Mean Corpuscular Hemoglobin 27 pg (25-35) Mean Corpuscular Hemoglobin Concent 33 g/dL (31-37) Red Cell Distribution Width 16.3 % (11.5-14.5) H Platelet Count 268 x10^3/uL (140-400) Neutrophils (%) (Auto) 61 % (31-73) Lymphocytes (%) (Auto) 22 % (24-48) L Monocytes (%) (Auto) 10 % (0-9) H Eosinophils (%) (Auto) 6 % (0-3) H Basophils (%) (Auto) 0 % (0-3) Neutrophils # (Auto) 3.3 x10^3uL (1.8-7.7) Lymphocytes # (Auto) 1.2 x10^3/uL (1.0-4.8) Monocytes # (Auto) 0.5 x10^3/uL (0.0-1.1) Eosinophils # (Auto) 0.3 x10^3/uL (0.0-0.7) Basophils # (Auto) 0.0 x10^3/uL (0.0-0.2) Sodium Level 138 mmol/L (136-145) Potassium Level 4.4 mmol/L (3.5-5.1) Chloride Level 102 mmol/L (98-107) Carbon Dioxide Level 29 mmol/L (21-32) Anion Gap 7 (6-14) Blood Urea Nitrogen 17 mg/dL (7-20) Creatinine 0.8 mg/dL (0.6-1.0) Estimated GFR (Cockcroft-Gault) 71.8 BUN/Creatinine Ratio 21 (6-20) H Glucose Level 93 mg/dL (70-99) Calcium Level 9.1 mg/dL (8.5-10.1) Total Bilirubin 0.2 mg/dL (0.2-1.0) Aspartate Amino Transferase (AST) 17 U/L (15-37) Alanine Aminotransferase (ALT) 18 U/L (14-59) Alkaline Phosphatase 90 U/L (46-116) Total Protein 6.5 g/dL (6.4-8.2) Albumin 2.9 g/dL (3.4-5.0) L Albumin/Globulin Ratio 0.8 (1.0-1.7) L Valproic Acid Level 52 mcg/mL (50-100) Valproic Acid Last Dose Date 06/26/2020 Valproic Acid Last Dose Time 2100 Current Medications: Meds: Laboratory Tests Test 06/27/20 05:40 White Blood Count 5.3 x10^3/uL Red Blood Count 3.99 x10^6/uL Hemoglobin 10.9 g/dL Hematocrit 33.0 % Mean Corpuscular Volume 83 fL Mean Corpuscular Hemoglobin 27 pg Mean Corpuscular Hemoglobin Concent 33 g/dL Red Cell Distribution Width 16.3 % Platelet Count 268 x10^3/uL Neutrophils (%) (Auto) 61 % Lymphocytes (%) (Auto) 22 % Monocytes (%) (Auto) 10 % Eosinophils (%) (Auto) 6 % Basophils (%) (Auto) 0 % Neutrophils # (Auto) 3.3 x10^3uL Lymphocytes # (Auto) 1.2 x10^3/uL Monocytes # (Auto) 0.5 x10^3/uL Eosinophils # (Auto) 0.3 x10^3/uL Basophils # (Auto) 0.0 x10^3/uL Sodium Level 138 mmol/L Potassium Level 4.4 mmol/L Chloride Level 102 mmol/L Carbon Dioxide Level 29 mmol/L Anion Gap 7 Blood Urea Nitrogen 17 mg/dL Creatinine 0.8 mg/dL Estimated GFR (Cockcroft-Gault) 71.8 BUN/Creatinine Ratio 21 Glucose Level 93 mg/dL Calcium Level 9.1 mg/dL Total Bilirubin 0.2 mg/dL Aspartate Amino Transf (AST/SGOT) 17 U/L Alanine Aminotransferase (ALT/SGPT) 18 U/L Alkaline Phosphatase 90 U/L Total Protein 6.5 g/dL Albumin 2.9 g/dL Albumin/Globulin Ratio 0.8 Valproic Acid (Depakene) Level 52 mcg/mL Valproic Acid Last Dose Date 06/26/2020 Valproic Acid Last Dose Time 2100 Current Medications Medications (Trade) Dose Ordered Sig/Indra Route PRN Reason Start Time Stop Time Status Last Admin Dose Admin Acetaminophen (Tylenol) 650 mg PRN Q6HRS PRN PO MILD PAIN / TEMP > 100.3'F 06/21/20 16:15 Multi-Ingredient Ointment (Analgesic [place]) 1 joesph PRN QID PRN TP MUSCLE PAIN 06/21/20 16:15 Al Hydroxide/Mg Hydroxide (Mylanta Plus Xs) 15 ml PRN AFTMEALHC PRN PO DYSPEPSIA 06/21/20 16:15 Magnesium Hydroxide (Milk Of Magnesia) 2,400 mg PRN QHS PRN PO CONSTIPATION 06/21/20 16:15 Acetaminophen (Tylenol) 500 mg PRN Q6HRS PRN PO pain or fever 06/21/20 16:30 UNV Albuterol Sulfate (Ventolin) 2.5 mg PRN Q4HRS PRN IH FOR ASTHMA 06/21/20 16:30 UNV Amlodipine Besylate (Norvasc) 5 mg DAILY PO 06/22/20 09:00 06/27/20 08:14 Aripiprazole (Abilify) 15 mg DAILY PO 06/22/20 09:00 06/27/20 08:08 Aspirin (Aspirin Enteric Coated) 81 mg DAILY PO 06/22/20 09:00 06/27/20 08:09 Atorvastatin Calcium (Lipitor) 20 mg QHS PO 06/21/20 21:00 06/27/20 20:30 Calcium/Vitamin D (Oscal D 500mg/ 200uts) 1 tab BID PO 06/21/20 21:00 06/27/20 08:09 Vitamin D (Vitamin D3) 50,000 unit WEEKLY PO 06/25/20 09:00 06/25/20 16:42 Clonazepam (KlonoPIN) 0.5 mg PRN BID PRN PO ANXIETY / AGITATION 06/21/20 16:30 06/27/20 18:16 Cyanocobalamin (Vitamin B-12) 1,000 mcg QMONTH IM 07/17/20 09:00 Diclofenac Sodium (Voltaren) 2 joesph QID TP 06/21/20 17:00 06/27/20 20:33 Docusate Sodium (Colace) 100 mg BID PO 06/21/20 21:00 06/27/20 20:31 Furosemide (Lasix) 20 mg DAILY16 PO 06/22/20 16:00 06/27/20 16:15 DC 06/26/20 15:52 Isosorbide Mononitrate (Imdur) 30 mg DAILY08 PO 06/22/20 08:00 06/27/20 08:09 Ketoconazole (Nizoral 2% Shampoo) 1 joesph PRN DAILY PRN TP DANDRUFF 06/21/20 16:30 Levothyroxine Sodium (Synthroid) 75 mcg DAILY06 PO 06/22/20 06:00 06/27/20 05:51 Metoprolol Tartrate (Lopressor) 12.5 mg BID PO 06/21/20 21:00 06/27/20 20:31 Pantoprazole Sodium (Protonix) 40 mg DAILY08 PO 06/22/20 08:00 06/27/20 08:12 Ropinirole HCl (Requip) 0.5 mg HS PO 06/21/20 21:00 06/27/20 20:32 Salsalate (Salsalate) 1,000 mg 2100 PO 06/21/20 21:00 06/27/20 20:33 Salsalate (Salsalate) 1,500 mg 0800 PO 06/22/20 08:00 06/27/20 08:15 Sennosides (Senna) 8.6 mg BID76 PO 06/21/20 18:00 06/23/20 05:00 DC 06/22/20 16:04 Tramadol HCl (Ultram) 50 mg PRN Q6HRS PRN PO PAIN 06/21/20 16:30 06/25/20 01:42 Triamcinolone Acetonide (Kenalog) 1 joesph PRN Q12HR PRN TP ITCHING 06/21/20 16:30 Vitamin A/Vitamin D (Vitamin A & D Ointment) 1 joesph PRN Q1HR PRN TP DRY SKIN / SCALING 06/21/20 16:30 Multi-Ingred Cream/Lotion/Oil/ Oint (Hydrocerin) 1 joesph BID TP 06/21/20 21:00 06/27/20 13:13 Fluoxetine HCl (PROzac) 80 mg DAILY08 PO 06/22/20 08:00 06/27/20 08:14 Non-Formulary Medication (Liraglutide (Saxenda)) 1.8 mg 0800 SQ 06/22/20 08:00 UNV Melatonin (Melatonin) 3 mg HS PO 06/21/20 21:00 06/27/20 20:32 Non-Formulary Medication (Olodaterol HCl (Striverdi Respimat)) 4 gm DAILY08 IH 06/22/20 08:00 UNV Potassium Chloride (Klor-Con) 10 meq TID PO 06/21/20 21:00 06/27/20 16:15 DC 06/27/20 13:12 Quetiapine Fumarate (SEROquel) 300 mg DAILY08 PO 06/22/20 08:00 06/27/20 08:13 Quetiapine Fumarate (SEROquel) 600 mg HS PO 06/21/20 21:00 06/27/20 20:32 Hydroxyzine HCl (Atarax) 25 mg TID PO 06/21/20 21:00 06/27/20 20:33 Albuterol Sulfate (Ventolin Hfa Inhaler) 2 puff PRN Q4HRS PRN INH SHORTNESS OF BREATH 06/21/20 17:15 Divalproex Sodium (Depakote Er) 500 mg QHS PO 06/21/20 21:00 06/24/20 17:35 DC 06/23/20 19:43 Divalproex Sodium (Depakote Er) 500 mg QHS PO 06/22/20 21:00 06/22/20 12:14 DC Sennosides (Senna) 8.6 mg BIDACBL PO 06/23/20 07:30 06/27/20 13:11 Divalproex Sodium (Depakote Er) 750 mg QHS PO 06/24/20 21:00 06/25/20 19:31 DC 06/24/20 21:05 Divalproex Sodium (Depakote Er) 500 mg QHS PO 06/25/20 21:00 06/27/20 20:31 Divalproex Sodium (Depakote Er) 250 mg QHS PO 06/25/20 21:00 06/27/20 20:31 Furosemide (Lasix) 60 mg 1X ONCE PO 06/26/20 21:15 06/26/20 22:10 DC 06/27/20 05:51 Furosemide (Lasix) 40 mg DAILY PO 06/27/20 16:15 06/27/20 17:23 Potassium Chloride (Klor-Con) 20 meq BID PO 06/27/20 21:00 06/27/20 20:33 Current Medications Medications (Trade) Dose Ordered Sig/Indra Route PRN Reason Start Time Stop Time Status Last Admin Dose Admin Furosemide (Lasix) 40 mg DAILY PO 06/27/20 16:15 06/27/20 17:23 Potassium Chloride (Klor-Con) 20 meq BID PO 06/27/20 21:00 06/27/20 20:33 I have reviewed the current psychotropics carefully including drug interactions. Risk benefit ratio favors no change other than as noted in my dictated progress note. Diagnosis: Problems: (1) Schizoaffective disorder, bipolar type (2) Impulse control disorder, unspecified (3) Anxiety disorder, unspecified (4) Bipolar disorder, current episode depressed, severe, with psychotic features MICHAEL CLARK MD Jun 27, 2020 22:30
[2020-06-28] MEDS: ARIPiprazole 15 MG TABLET PO SCH (04:39)
[2020-06-28] MEDS: amLODIPine BESYLATE 5 MG TABLET PO SCH (04:39)
[2020-06-28] MEDS: ISOSORBIDE MONONITRATE ER 30 MG TAB.ER.24H PO SCH (04:39)
[2020-06-28] MEDS: CALCIUM CARB/VIT D3 500/200 TABLET PO SCH ×2 (04:40→21:00)
[2020-06-28] MEDS: FLUoxetine HCL 20 MG CAPSULE PO SCH (04:40)
[2020-06-28] MEDS: DOCUSATE SODIUM 100 MG CAPSULE PO SCH ×2 (04:40→21:55)
[2020-06-28] MEDS: POTASSIUM CHLORIDE 20 MEQ TABLET.ER. PO SCH ×2 (04:40→21:00)
[2020-06-28] MEDS: SENNOSIDES 8.6 MG TABLET PO SCH ×2 (04:41→14:17)
[2020-06-28] MEDS: ASPIRIN ENTERIC COATED 81 MG TABLET.DR. PO SCH (04:41)
[2020-06-28] MEDS: hydrOXYzine HCL 25 MG TABLET PO SCH ×3 (04:41→21:53)
[2020-06-28] MEDS: QUEtiapine 100 MG TABLET. PO SCH ×2 (04:41→21:54)
[2020-06-28] MEDS: FUROSEMIDE 40 MG TABLET PO SCH (04:42)
[2020-06-28] MEDS: METOPROLOL TART IMMED RELEASE 25 MG TABLET. PO SCH ×2 (04:43→21:56)
[2020-06-28] MEDS: LEVOTHYROXINE 75 MCG TABLET PO SCH (04:48)
[2020-06-28] MEDS: PANTOPRAZOLE 40 MG TABLET. PO SCH (04:49)
[2020-06-28] MEDS: SALSALATE 500 MG PO SCH ×2 (04:49→21:57)
[2020-06-28] MEDS: DICLOFENAC SODIUM 1% TOPICAL GEL 100GM TUBE. TP SCH ×4 (04:50→21:00)
[2020-06-28] MEDS: MINERAL OIL/PETROLATUM TOPICAL CREAM 113GM JAR. TP SCH ×2 (05:01→21:00)
[2020-06-28 05:59] VITALS: BP 125/78
[2020-06-28] MEDS: NON FORMULARY ITEM (Olodaterol HCl (Striverdi Respimat) 4 GM) IH SCH (08:00)
[2020-06-28] MEDS: LIRAGLUTIDE 1.8 MG SQ SCH (08:00)
[2020-06-28] MEDS: clonazePAM 0.5 MG TABLET PO PRN (14:17)
[2020-06-28 16:20] VITALS: BP 140/80
--- NOTE | 2020-06-28 17:33 | TX PLAN ---
Interdisciplinary Tx Plan Admission Information Jun 21, 2020 at 13:15 Legal Status (on Admission): Voluntary DPOA/Guardian Name: Felix Moscoso Contact Other Contact Name: Emigdio Cantrell Other Contact Verified Code Status: Full Code Allergies: Coded Allergies: chlorpromazine (Verified Allergy, Unknown, 06/07/20) diphenhydramine (Verified Allergy, Unknown, 06/07/20) lisinopril (Verified Allergy, Unknown, 06/07/20) simvastatin (Verified Allergy, Unknown, 06/07/20) Diagnoses Primary Diagnosis: Schizoaffective D/O Reasons for Admission: Delusions, Other Problem in Patient's Words: NA Additional Admission Comments: Pt was re-admitted to [facility] on 06/21 after having a Thoracentesis and 24 hour observation on ICU. Pt is labile and mostly tearful. Previous admission stated pt is paranoid,having multiple times in her head causing an abrasion, anxious and making statements of "I just want to end this" Problems Active Problems: delusional labile mood anxious Inactive Problems: medication management Pt Strengths/Limitations Ability for [place]: Poor Cognitive Functioning/Ability: Fair Communication Skills/Ability: Fair Financial Resources: Fair Insight/Judgement: Poor Intellectual Ability: Fair Physical Health: Poor Social Skills: Fair Stability in Family: Fair Stability in School/Work: Poor Verbal Skills: Fair Discharge Criteria Discharge Criteria: No need for close observ., Adequate arrangements @DC, Improved behavior, Improved mood/thought Special Precautions Fall Risk: Moderate Initial D/C Plan Pt will need placement at discharge. Identified Discharge Needs: Referrals for higher level of care Currently Utilized Resources Currently Utilized Resources/P: [facility] services : PCP, Psychiatrist, Counseling, dealer account manager Identified Problems/Hx/Goals Objectives/Short-Term Goals Short Term Goals: Dec. Anxiety/Panic, Dec. Hallucination/Delus, Dec. Outbursts, Dec. Symp. Depression, Medication Stabilization, Monitor Med Effects, Promote Coping Skill Short Term Goals in Patient's: I just need to get my Fluffy back Interventions/Frequency Staff Interventions/Frequency&: Psychiatrist to assess pt at least 3x per week for medication mgmt. Social Work to assess pt at least 2x per week to identify barriers to care and final discharge planning. Nursing to assess medication effects, behavior modification and completion of 15 minute checks daily. Encourage participation in group activities (if applicable) or 1:1 engagement based off activity dept goals. History Vocational History: Pt was not able to fully work as her psychiatric troubles prevented her from doing so. 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 Pt is cooperative but does express a lot of negative self-thinking and is paranoid that staff thinks poorly of her. Pt is able to recognize that she has periods of not knowing what is real and that she has inappropriate thoughts at times. Pt is medication compliant and there are concerns that she may be retaining fluid again. JOSE LUIS is working with her [facility] team who is attempting to see if pt can transfer to the [facility] to their psych unit and receive see the Oncologist there about next steps. JOSE LUIS will continue to work wit pt brother and check in with the VA team. FROY KAISER Jun 28, 2020 17:33
[2020-06-28] MEDS: rOPINIRole 0.5 MG TABLET. PO SCH (21:52)
[2020-06-28] MEDS: DIVALPROEX ER 500 MG TAB.ER.24H PO SCH (21:53)
[2020-06-28] MEDS: MELATONIN 3 MG TABLET PO SCH (21:53)
[2020-06-28] MEDS: ATORVASTATIN CALCIUM 20 MG TABLET PO SCH (21:55)
[2020-06-28] MEDS: DIVALPROEX ER 250 MG TAB.ER.24H. PO SCH (21:56)
--- NOTE | 2020-06-28 22:00 | PDOC ---
Exam Note: [place] Note: Please also refer to the separate dictated note~for this date of service dictated separately.~Patient seen individually. Discussed the patient with Nursing staff reviewed the chart.~Reviewed interim history and current functioning. Reviewed vital signs,~Labs/ Radiology~and current medications noted below. Continue current treatment with the changes noted in the dictated addendum note Assessment: Vital Signs/I&O: Vital Signs Date Time Temp Pulse Resp B/P (MAP) Pulse Ox O2 Delivery O2 Flow Rate FiO2 06/28/20 21:56 74 140/80 06/28/20 16:20 97.8 20 94 06/27/20 06:07 Nasal Cannula 2.0 I & O 0 06/27/20 06/27/20 06/28/20 14:59 22:59 06:59 Intake Total 720 ml 480 ml Balance 720 ml 480 ml Current Medications: Meds: Current Medications Medications (Trade) Dose Ordered Sig/Indra Route PRN Reason Start Time Stop Time Status Last Admin Dose Admin Acetaminophen (Tylenol) 650 mg PRN Q6HRS PRN PO MILD PAIN / TEMP > 100.3'F 06/21/20 16:15 Multi-Ingredient Ointment (Analgesic [place]) 1 joesph PRN QID PRN TP MUSCLE PAIN 06/21/20 16:15 Al Hydroxide/Mg Hydroxide (Mylanta Plus Xs) 15 ml PRN AFTMEALHC PRN PO DYSPEPSIA 06/21/20 16:15 Magnesium Hydroxide (Milk Of Magnesia) 2,400 mg PRN QHS PRN PO CONSTIPATION 06/21/20 16:15 Acetaminophen (Tylenol) 500 mg PRN Q6HRS PRN PO pain or fever 06/21/20 16:30 UNV Albuterol Sulfate (Ventolin) 2.5 mg PRN Q4HRS PRN IH FOR ASTHMA 06/21/20 16:30 UNV Amlodipine Besylate (Norvasc) 5 mg DAILY PO 06/22/20 09:00 06/28/20 04:39 Aripiprazole (Abilify) 15 mg DAILY PO 06/22/20 09:00 06/28/20 04:39 Aspirin (Aspirin Enteric Coated) 81 mg DAILY PO 06/22/20 09:00 06/28/20 04:41 Atorvastatin Calcium (Lipitor) 20 mg QHS PO 06/21/20 21:00 06/28/20 21:55 Calcium/Vitamin D (Oscal D 500mg/ 200uts) 1 tab BID PO 06/21/20 21:00 06/28/20 21:00 Vitamin D (Vitamin D3) 50,000 unit WEEKLY PO 06/25/20 09:00 06/25/20 16:42 Clonazepam (KlonoPIN) 0.5 mg PRN BID PRN PO ANXIETY / AGITATION 06/21/20 16:30 06/28/20 14:17 Cyanocobalamin (Vitamin B-12) 1,000 mcg QMONTH IM 07/17/20 09:00 Diclofenac Sodium (Voltaren) 2 joesph QID TP 06/21/20 17:00 06/28/20 21:00 Docusate Sodium (Colace) 100 mg BID PO 06/21/20 21:00 06/28/20 21:55 Furosemide (Lasix) 20 mg DAILY16 PO 06/22/20 16:00 06/27/20 16:15 DC 06/26/20 15:52 Isosorbide Mononitrate (Imdur) 30 mg DAILY08 PO 06/22/20 08:00 06/28/20 04:39 Ketoconazole (Nizoral 2% Shampoo) 1 joesph PRN DAILY PRN TP DANDRUFF 06/21/20 16:30 Levothyroxine Sodium (Synthroid) 75 mcg DAILY06 PO 06/22/20 06:00 06/28/20 04:48 Metoprolol Tartrate (Lopressor) 12.5 mg BID PO 06/21/20 21:00 06/28/20 21:56 Pantoprazole Sodium (Protonix) 40 mg DAILY08 PO 06/22/20 08:00 06/28/20 04:49 Ropinirole HCl (Requip) 0.5 mg HS PO 06/21/20 21:00 06/28/20 21:52 Salsalate (Salsalate) 1,000 mg 2100 PO 06/21/20 21:00 06/28/20 21:57 Salsalate (Salsalate) 1,500 mg 0800 PO 06/22/20 08:00 06/28/20 04:49 Sennosides (Senna) 8.6 mg BID76 PO 06/21/20 18:00 06/23/20 05:00 DC 06/22/20 16:04 Tramadol HCl (Ultram) 50 mg PRN Q6HRS PRN PO PAIN 06/21/20 16:30 06/25/20 01:42 Triamcinolone Acetonide (Kenalog) 1 joesph PRN Q12HR PRN TP ITCHING 06/21/20 16:30 Vitamin A/Vitamin D (Vitamin A & D Ointment) 1 joesph PRN Q1HR PRN TP DRY SKIN / SCALING 06/21/20 16:30 Multi-Ingred Cream/Lotion/Oil/ Oint (Hydrocerin) 1 joesph BID TP 06/21/20 21:00 06/28/20 21:00 Fluoxetine HCl (PROzac) 80 mg DAILY08 PO 06/22/20 08:00 06/28/20 04:40 Non-Formulary Medication (Liraglutide (Saxenda)) 1.8 mg 0800 SQ 06/22/20 08:00 UNV Melatonin (Melatonin) 3 mg HS PO 06/21/20 21:00 06/28/20 21:53 Non-Formulary Medication (Olodaterol HCl (Striverdi Respimat)) 4 gm DAILY08 IH 06/22/20 08:00 UNV Potassium Chloride (Klor-Con) 10 meq TID PO 06/21/20 21:00 06/27/20 16:15 DC 06/27/20 13:12 Quetiapine Fumarate (SEROquel) 300 mg DAILY08 PO 06/22/20 08:00 06/28/20 04:41 Quetiapine Fumarate (SEROquel) 600 mg HS PO 06/21/20 21:00 06/28/20 21:54 Hydroxyzine HCl (Atarax) 25 mg TID PO 06/21/20 21:00 06/28/20 21:53 Albuterol Sulfate (Ventolin Hfa Inhaler) 2 puff PRN Q4HRS PRN INH SHORTNESS OF BREATH 06/21/20 17:15 Divalproex Sodium (Depakote Er) 500 mg QHS PO 06/21/20 21:00 06/24/20 17:35 DC 06/23/20 19:43 Divalproex Sodium (Depakote Er) 500 mg QHS PO 06/22/20 21:00 06/22/20 12:14 DC Sennosides (Senna) 8.6 mg BIDACBL PO 06/23/20 07:30 06/28/20 14:17 Divalproex Sodium (Depakote Er) 750 mg QHS PO 06/24/20 21:00 06/25/20 19:31 DC 06/24/20 21:05 Divalproex Sodium (Depakote Er) 500 mg QHS PO 06/25/20 21:00 06/28/20 21:53 Divalproex Sodium (Depakote Er) 250 mg QHS PO 06/25/20 21:00 06/28/20 21:56 Furosemide (Lasix) 60 mg 1X ONCE PO 06/26/20 21:15 06/26/20 22:10 DC 06/27/20 05:51 Furosemide (Lasix) 40 mg DAILY PO 06/27/20 16:15 06/28/20 04:42 Potassium Chloride (Klor-Con) 20 meq BID PO 06/27/20 21:00 06/28/20 21:00 I have reviewed the current psychotropics carefully including drug interactions. Risk benefit ratio favors no change other than as noted in my dictated progress note. Diagnosis: Problems: (1) Schizoaffective disorder, bipolar type (2) Impulse control disorder, unspecified (3) Anxiety disorder, unspecified (4) Bipolar disorder, current episode depressed, severe, with psychotic features MICHAEL CLARK MD Jun 28, 2020 22:00
[2020-06-29] MEDS: LEVOTHYROXINE 75 MCG TABLET PO SCH (05:29)
[2020-06-29 06:02] VITALS: BP 155/84
--- NOTE | 2020-06-29 07:05 | PDOC ---
Exam Note: [place] Note: This note is a late entry for 06/26/2020 covers elements not covered in my initial note. Subjective: The patient was seen individually in the evening of 06/26/2020 with Jennifer WOMACK, discussed and reviewed the chart. The patient slept 5-1/2 hours previous night. She is less anxious, some paranoia. I met with her in her room at length. She was using CPAP during the day because she felt it helps her nerves. She is again developing some shortness of breath. We will defer to Dr. Lowe/Dr. Ryan. Patient is less anxious but has some paranoia, on Klonopin x2. Review of Systems: Ambulation impaired in wheelchair. No CV, , pulmonary, eye system symptoms on review. Mental Status Exam: The patient is awake, alert and oriented. She removed her CPAP to interact with me, very appropriate, pleasant. She talked [facility]. Speech has some latency, coherent. Abstraction fair. Computation impaired. Language function intact. Mood and affect withdrawn. Laboratory Data: Reviewed. Impression: Schizoaffective disorder, bipolar type, mixed with psychotic features in partial remission. Anxiety disorder unspecified. Impulse control disorder unspecified. Plan: No change from initial note. Assessment: Vital Signs/I&O: Vital Signs Date Time Temp Pulse Resp B/P (MAP) Pulse Ox O2 Delivery O2 Flow Rate FiO2 06/29/20 06:02 97.6 63 20 155/84 (107) 96 06/27/20 06:07 Nasal Cannula 2.0 I & O 06/28/20 06/28/20 06/29/20 15:00 23:00 07:00 Intake Total 600 ml 360 ml Balance 600 ml 360 ml Current Medications: Meds: Current Medications Medications (Trade) Dose Ordered Sig/Indra Route PRN Reason Start Time Stop Time Status Last Admin Dose Admin Acetaminophen (Tylenol) 650 mg PRN Q6HRS PRN PO MILD PAIN / TEMP > 100.3'F 06/21/20 16:15 Multi-Ingredient Ointment (Analgesic [place]) 1 joesph PRN QID PRN TP MUSCLE PAIN 06/21/20 16:15 Al Hydroxide/Mg Hydroxide (Mylanta Plus Xs) 15 ml PRN AFTMEALHC PRN PO DYSPEPSIA 06/21/20 16:15 Magnesium Hydroxide (Milk Of Magnesia) 2,400 mg PRN QHS PRN PO CONSTIPATION 06/21/20 16:15 Acetaminophen (Tylenol) 500 mg PRN Q6HRS PRN PO pain or fever 06/21/20 16:30 UNV Albuterol Sulfate (Ventolin) 2.5 mg PRN Q4HRS PRN IH FOR ASTHMA 06/21/20 16:30 UNV Amlodipine Besylate (Norvasc) 5 mg DAILY PO 06/22/20 09:00 06/28/20 04:39 Aripiprazole (Abilify) 15 mg DAILY PO 06/22/20 09:00 06/28/20 04:39 Aspirin (Aspirin Enteric Coated) 81 mg DAILY PO 06/22/20 09:00 06/28/20 04:41 Atorvastatin Calcium (Lipitor) 20 mg QHS PO 06/21/20 21:00 06/28/20 21:55 Calcium/Vitamin D (Oscal D 500mg/ 200uts) 1 tab BID PO 06/21/20 21:00 06/28/20 21:00 Vitamin D (Vitamin D3) 50,000 unit WEEKLY PO 06/25/20 09:00 06/25/20 16:42 Clonazepam (KlonoPIN) 0.5 mg PRN BID PRN PO ANXIETY / AGITATION 06/21/20 16:30 06/28/20 14:17 Cyanocobalamin (Vitamin B-12) 1,000 mcg QMONTH IM 07/17/20 09:00 Diclofenac Sodium (Voltaren) 2 joesph QID TP 06/21/20 17:00 06/28/20 21:00 Docusate Sodium (Colace) 100 mg BID PO 06/21/20 21:00 06/28/20 21:55 Furosemide (Lasix) 20 mg DAILY16 PO 06/22/20 16:00 06/27/20 16:15 DC 06/26/20 15:52 Isosorbide Mononitrate (Imdur) 30 mg DAILY08 PO 06/22/20 08:00 06/28/20 04:39 Ketoconazole (Nizoral 2% Shampoo) 1 joesph PRN DAILY PRN TP DANDRUFF 06/21/20 16:30 Levothyroxine Sodium (Synthroid) 75 mcg DAILY06 PO 06/22/20 06:00 06/29/20 05:29 Metoprolol Tartrate (Lopressor) 12.5 mg BID PO 06/21/20 21:00 06/28/20 21:56 Pantoprazole Sodium (Protonix) 40 mg DAILY08 PO 06/22/20 08:00 06/28/20 04:49 Ropinirole HCl (Requip) 0.5 mg HS PO 06/21/20 21:00 06/28/20 21:52 Salsalate (Salsalate) 1,000 mg 2100 PO 06/21/20 21:00 06/28/20 21:57 Salsalate (Salsalate) 1,500 mg 0800 PO 06/22/20 08:00 06/28/20 04:49 Sennosides (Senna) 8.6 mg BID76 PO 06/21/20 18:00 06/23/20 05:00 DC 06/22/20 16:04 Tramadol HCl (Ultram) 50 mg PRN Q6HRS PRN PO PAIN 06/21/20 16:30 06/25/20 01:42 Triamcinolone Acetonide (Kenalog) 1 joesph PRN Q12HR PRN TP ITCHING 06/21/20 16:30 Vitamin A/Vitamin D (Vitamin A & D Ointment) 1 joesph PRN Q1HR PRN TP DRY SKIN / SCALING 06/21/20 16:30 Multi-Ingred Cream/Lotion/Oil/ Oint (Hydrocerin) 1 joesph BID TP 06/21/20 21:00 06/28/20 21:00 Fluoxetine HCl (PROzac) 80 mg DAILY08 PO 06/22/20 08:00 06/28/20 04:40 Non-Formulary Medication (Liraglutide (Saxenda)) 1.8 mg 0800 SQ 06/22/20 08:00 UNV Melatonin (Melatonin) 3 mg HS PO 06/21/20 21:00 06/28/20 21:53 Non-Formulary Medication (Olodaterol HCl (Striverdi Respimat)) 4 gm DAILY08 IH 06/22/20 08:00 UNV Potassium Chloride (Klor-Con) 10 meq TID PO 06/21/20 21:00 06/27/20 16:15 DC 06/27/20 13:12 Quetiapine Fumarate (SEROquel) 300 mg DAILY08 PO 06/22/20 08:00 06/28/20 04:41 Quetiapine Fumarate (SEROquel) 600 mg HS PO 06/21/20 21:00 06/28/20 21:54 Hydroxyzine HCl (Atarax) 25 mg TID PO 06/21/20 21:00 06/28/20 21:53 Albuterol Sulfate (Ventolin Hfa Inhaler) 2 puff PRN Q4HRS PRN INH SHORTNESS OF BREATH 06/21/20 17:15 Divalproex Sodium (Depakote Er) 500 mg QHS PO 06/21/20 21:00 06/24/20 17:35 DC 06/23/20 19:43 Divalproex Sodium (Depakote Er) 500 mg QHS PO 06/22/20 21:00 06/22/20 12:14 DC Sennosides (Senna) 8.6 mg BIDACBL PO 06/23/20 07:30 06/28/20 14:17 Divalproex Sodium (Depakote Er) 750 mg QHS PO 06/24/20 21:00 06/25/20 19:31 DC 06/24/20 21:05 Divalproex Sodium (Depakote Er) 500 mg QHS PO 06/25/20 21:00 06/28/20 21:53 Divalproex Sodium (Depakote Er) 250 mg QHS PO 06/25/20 21:00 06/28/20 21:56 Furosemide (Lasix) 60 mg 1X ONCE PO 06/26/20 21:15 06/26/20 22:10 DC 06/27/20 05:51 Furosemide (Lasix) 40 mg DAILY PO 06/27/20 16:15 06/28/20 04:42 Potassium Chloride (Klor-Con) 20 meq BID PO 06/27/20 21:00 06/28/20 21:00 I have reviewed the current psychotropics carefully including drug interactions. Risk benefit ratio favors no change other than as noted in my dictated progress note. Diagnosis: Problems: (1) Schizoaffective disorder, bipolar type (2) Impulse control disorder, unspecified (3) Anxiety disorder, unspecified (4) Bipolar disorder, current episode depressed, severe, with psychotic features (5) Pleural effusion EDUARDO,MAN M MD Jun 29, 2020 07:05
--- NOTE | 2020-06-29 07:26 | PDOC ---
Exam Note: [place] Note: This note is a late entry for 06/27/2020 covers elements not covered in my initial note. Subjective: The patient was seen individually in the evening of 06/27/2020 with Jayy WOMACK, discussed and reviewed the chart. The patient slept 6-1/2 hours previous night. She has been somewhat attention seeking, at times paranoid regarding actions of staff members. She has had some crackles and wheezing in her chest and seems to desat and defer to Dr. Lowe and she remains on oxygen. Valproic acid level is 52 therapeutic. Review of Systems: Shortness of breath. Ambulation impaired in wheelchair. No CV, , eye system symptoms on review. Mental Status Exam: The patient is awake, alert and oriented. She is pleasant, cooperative, verbal. We discussed [facility]. She is wanting to get into treatment for her [facility]. Speech has some latency, coherent. Abstraction fair. Computation impaired. L anguage function intact. Mood and affect withdrawn. Laboratory Data: Reviewed. Impression: Schizoaffective disorder, bipolar type, mixed with psychotic features in partial remission. Anxiety disorder unspecified. Impulse control disorder unspecified. Plan: No change from initial note. Assessment: Vital Signs/I&O: Vital Signs Date Time Temp Pulse Resp B/P (MAP) Pulse Ox O2 Delivery O2 Flow Rate FiO2 06/29/20 06:02 97.6 63 20 155/84 (107) 96 06/27/20 06:07 Nasal Cannula 2.0 I & O 06/28/20 06/28/20 06/29/20 15:00 23:00 07:00 Intake Total 600 ml 360 ml Balance 600 ml 360 ml Current Medications: Meds: Current Medications Medications (Trade) Dose Ordered Sig/Indra Route PRN Reason Start Time Stop Time Status Last Admin Dose Admin Acetaminophen (Tylenol) 650 mg PRN Q6HRS PRN PO MILD PAIN / TEMP > 100.3'F 06/21/20 16:15 Multi-Ingredient Ointment (Analgesic [place]) 1 joesph PRN QID PRN TP MUSCLE PAIN 06/21/20 16:15 Al Hydroxide/Mg Hydroxide (Mylanta Plus Xs) 15 ml PRN AFTMEALHC PRN PO DYSPEPSIA 06/21/20 16:15 Magnesium Hydroxide (Milk Of Magnesia) 2,400 mg PRN QHS PRN PO CONSTIPATION 06/21/20 16:15 Acetaminophen (Tylenol) 500 mg PRN Q6HRS PRN PO pain or fever 06/21/20 16:30 UNV Albuterol Sulfate (Ventolin) 2.5 mg PRN Q4HRS PRN IH FOR ASTHMA 06/21/20 16:30 UNV Amlodipine Besylate (Norvasc) 5 mg DAILY PO 06/22/20 09:00 06/28/20 04:39 Aripiprazole (Abilify) 15 mg DAILY PO 06/22/20 09:00 06/28/20 04:39 Aspirin (Aspirin Enteric Coated) 81 mg DAILY PO 06/22/20 09:00 06/28/20 04:41 Atorvastatin Calcium (Lipitor) 20 mg QHS PO 06/21/20 21:00 06/28/20 21:55 Calcium/Vitamin D (Oscal D 500mg/ 200uts) 1 tab BID PO 06/21/20 21:00 06/28/20 21:00 Vitamin D (Vitamin D3) 50,000 unit WEEKLY PO 06/25/20 09:00 06/25/20 16:42 Clonazepam (KlonoPIN) 0.5 mg PRN BID PRN PO ANXIETY / AGITATION 06/21/20 16:30 06/28/20 14:17 Cyanocobalamin (Vitamin B-12) 1,000 mcg QMONTH IM 07/17/20 09:00 Diclofenac Sodium (Voltaren) 2 joesph QID TP 06/21/20 17:00 06/28/20 21:00 Docusate Sodium (Colace) 100 mg BID PO 06/21/20 21:00 06/28/20 21:55 Furosemide (Lasix) 20 mg DAILY16 PO 06/22/20 16:00 06/27/20 16:15 DC 06/26/20 15:52 Isosorbide Mononitrate (Imdur) 30 mg DAILY08 PO 06/22/20 08:00 06/28/20 04:39 Ketoconazole (Nizoral 2% Shampoo) 1 joesph PRN DAILY PRN TP DANDRUFF 06/21/20 16:30 Levothyroxine Sodium (Synthroid) 75 mcg DAILY06 PO 06/22/20 06:00 06/29/20 05:29 Metoprolol Tartrate (Lopressor) 12.5 mg BID PO 06/21/20 21:00 06/28/20 21:56 Pantoprazole Sodium (Protonix) 40 mg DAILY08 PO 06/22/20 08:00 06/28/20 04:49 Ropinirole HCl (Requip) 0.5 mg HS PO 06/21/20 21:00 06/28/20 21:52 Salsalate (Salsalate) 1,000 mg 2100 PO 06/21/20 21:00 06/28/20 21:57 Salsalate (Salsalate) 1,500 mg 0800 PO 06/22/20 08:00 06/28/20 04:49 Sennosides (Senna) 8.6 mg BID76 PO 06/21/20 18:00 06/23/20 05:00 DC 06/22/20 16:04 Tramadol HCl (Ultram) 50 mg PRN Q6HRS PRN PO PAIN 06/21/20 16:30 06/25/20 01:42 Triamcinolone Acetonide (Kenalog) 1 joesph PRN Q12HR PRN TP ITCHING 06/21/20 16:30 Vitamin A/Vitamin D (Vitamin A & D Ointment) 1 joesph PRN Q1HR PRN TP DRY SKIN / SCALING 06/21/20 16:30 Multi-Ingred Cream/Lotion/Oil/ Oint (Hydrocerin) 1 joesph BID TP 06/21/20 21:00 06/28/20 21:00 Fluoxetine HCl (PROzac) 80 mg DAILY08 PO 06/22/20 08:00 06/28/20 04:40 Non-Formulary Medication (Liraglutide (Saxenda)) 1.8 mg 0800 SQ 06/22/20 08:00 UNV Melatonin (Melatonin) 3 mg HS PO 06/21/20 21:00 06/28/20 21:53 Non-Formulary Medication (Olodaterol HCl (Striverdi Respimat)) 4 gm DAILY08 IH 06/22/20 08:00 UNV Potassium Chloride (Klor-Con) 10 meq TID PO 06/21/20 21:00 06/27/20 16:15 DC 06/27/20 13:12 Quetiapine Fumarate (SEROquel) 300 mg DAILY08 PO 06/22/20 08:00 06/28/20 04:41 Quetiapine Fumarate (SEROquel) 600 mg HS PO 06/21/20 21:00 06/28/20 21:54 Hydroxyzine HCl (Atarax) 25 mg TID PO 06/21/20 21:00 06/28/20 21:53 Albuterol Sulfate (Ventolin Hfa Inhaler) 2 puff PRN Q4HRS PRN INH SHORTNESS OF BREATH 06/21/20 17:15 Divalproex Sodium (Depakote Er) 500 mg QHS PO 06/21/20 21:00 06/24/20 17:35 DC 06/23/20 19:43 Divalproex Sodium (Depakote Er) 500 mg QHS PO 06/22/20 21:00 06/22/20 12:14 DC Sennosides (Senna) 8.6 mg BIDACBL PO 06/23/20 07:30 06/28/20 14:17 Divalproex Sodium (Depakote Er) 750 mg QHS PO 06/24/20 21:00 06/25/20 19:31 DC 06/24/20 21:05 Divalproex Sodium (Depakote Er) 500 mg QHS PO 06/25/20 21:00 06/28/20 21:53 Divalproex Sodium (Depakote Er) 250 mg QHS PO 06/25/20 21:00 06/28/20 21:56 Furosemide (Lasix) 60 mg 1X ONCE PO 06/26/20 21:15 06/26/20 22:10 DC 06/27/20 05:51 Furosemide (Lasix) 40 mg DAILY PO 06/27/20 16:15 06/28/20 04:42 Potassium Chloride (Klor-Con) 20 meq BID PO 06/27/20 21:00 06/28/20 21:00 I have reviewed the current psychotropics carefully including drug interactions. Risk benefit ratio favors no change other than as noted in my dictated progress note. Diagnosis: Problems: (1) Schizoaffective disorder, bipolar type (2) Impulse control disorder, unspecified (3) Anxiety disorder, unspecified (4) Bipolar disorder, current episode depressed, severe, with psychotic features (5) Pleural effusion MICHAEL CLARK MD Jun 29, 2020 07:26
--- NOTE | 2020-06-29 07:45 | PDOC ---
Exam Note: [place] Note: This note is a late entry for 06/28/2020 covers elements not covered in my initial note. Subjective: The patient was reviewed in the morning of 06/28/2020 for a treatment team meeting with Ada Clifford, Barbra Lugo and Amanda (nephrology social worker), Caity, activity therapy and Jayy WOMACK, discussed and reviewed the chart. The patient slept 7-3/4 hours previous night. I met with the patient in her room. She placed the CPAP on herself with oxygen and seemed to feel better with this. I will defer to Dr. Lowe for medical management since there is recurrent pleural effusion and history of lung cancer. Barbra shared how the OR has had conference on her and may transfer her to the [facility] Psychiatry unit for continued psychiatric care and start Oncology consultation and further treatment while she is there. I discussed all this at some length for the patient and she was very appreciative. Review of Systems: Shortness of breath. Ambulation impaired in wheelchair. No CV, , eye system symptoms on review. Mental Status Exam: The patient is awake, alert and oriented. She is verbal, interactive. Speech coherent, smiling at times. Abstraction fair. Computation impaired. Language function intact. Mood and affect withdrawn, less paranoid and psychotic. Laboratory Data: Reviewed. Impression: Schizoaffective disorder, bipolar type, mixed with psychotic features in partial remission. Anxiety disorder unspecified. Impulse control disorder unspecified. Plan: No change from initial note. Assessment: Vital Signs/I&O: Vital Signs Date Time Temp Pulse Resp B/P (MAP) Pulse Ox O2 Delivery O2 Flow Rate FiO2 06/29/20 06:02 97.6 63 20 155/84 (107) 96 06/27/20 06:07 Nasal Cannula 2.0 I & O 06/28/20 06/28/20 06/29/20 15:00 23:00 07:00 Intake Total 600 ml 360 ml Balance 600 ml 360 ml Current Medications: Meds: Current Medications Medications (Trade) Dose Ordered Sig/Indra Route PRN Reason Start Time Stop Time Status Last Admin Dose Admin Acetaminophen (Tylenol) 650 mg PRN Q6HRS PRN PO MILD PAIN / TEMP > 100.3'F 06/21/20 16:15 Multi-Ingredient Ointment (Analgesic [place]) 1 joesph PRN QID PRN TP MUSCLE PAIN 06/21/20 16:15 Al Hydroxide/Mg Hydroxide (Mylanta Plus Xs) 15 ml PRN AFTMEALHC PRN PO DYSPEPSIA 06/21/20 16:15 Magnesium Hydroxide (Milk Of Magnesia) 2,400 mg PRN QHS PRN PO CONSTIPATION 06/21/20 16:15 Acetaminophen (Tylenol) 500 mg PRN Q6HRS PRN PO pain or fever 06/21/20 16:30 UNV Albuterol Sulfate (Ventolin) 2.5 mg PRN Q4HRS PRN IH FOR ASTHMA 06/21/20 16:30 UNV Amlodipine Besylate (Norvasc) 5 mg DAILY PO 06/22/20 09:00 06/28/20 04:39 Aripiprazole (Abilify) 15 mg DAILY PO 06/22/20 09:00 06/28/20 04:39 Aspirin (Aspirin Enteric Coated) 81 mg DAILY PO 06/22/20 09:00 06/28/20 04:41 Atorvastatin Calcium (Lipitor) 20 mg QHS PO 06/21/20 21:00 06/28/20 21:55 Calcium/Vitamin D (Oscal D 500mg/ 200uts) 1 tab BID PO 06/21/20 21:00 06/28/20 21:00 Vitamin D (Vitamin D3) 50,000 unit WEEKLY PO 06/25/20 09:00 06/25/20 16:42 Clonazepam (KlonoPIN) 0.5 mg PRN BID PRN PO ANXIETY / AGITATION 06/21/20 16:30 06/28/20 14:17 Cyanocobalamin (Vitamin B-12) 1,000 mcg QMONTH IM 07/17/20 09:00 Diclofenac Sodium (Voltaren) 2 joesph QID TP 06/21/20 17:00 06/28/20 21:00 Docusate Sodium (Colace) 100 mg BID PO 06/21/20 21:00 06/28/20 21:55 Furosemide (Lasix) 20 mg DAILY16 PO 06/22/20 16:00 06/27/20 16:15 DC 06/26/20 15:52 Isosorbide Mononitrate (Imdur) 30 mg DAILY08 PO 06/22/20 08:00 06/28/20 04:39 Ketoconazole (Nizoral 2% Shampoo) 1 joesph PRN DAILY PRN TP DANDRUFF 06/21/20 16:30 Levothyroxine Sodium (Synthroid) 75 mcg DAILY06 PO 06/22/20 06:00 06/29/20 05:29 Metoprolol Tartrate (Lopressor) 12.5 mg BID PO 06/21/20 21:00 06/28/20 21:56 Pantoprazole Sodium (Protonix) 40 mg DAILY08 PO 06/22/20 08:00 06/28/20 04:49 Ropinirole HCl (Requip) 0.5 mg HS PO 06/21/20 21:00 06/28/20 21:52 Salsalate (Salsalate) 1,000 mg 2100 PO 06/21/20 21:00 06/28/20 21:57 Salsalate (Salsalate) 1,500 mg 0800 PO 06/22/20 08:00 06/28/20 04:49 Sennosides (Senna) 8.6 mg BID76 PO 06/21/20 18:00 06/23/20 05:00 DC 06/22/20 16:04 Tramadol HCl (Ultram) 50 mg PRN Q6HRS PRN PO PAIN 06/21/20 16:30 06/25/20 01:42 Triamcinolone Acetonide (Kenalog) 1 joesph PRN Q12HR PRN TP ITCHING 06/21/20 16:30 Vitamin A/Vitamin D (Vitamin A & D Ointment) 1 joesph PRN Q1HR PRN TP DRY SKIN / SCALING 06/21/20 16:30 Multi-Ingred Cream/Lotion/Oil/ Oint (Hydrocerin) 1 joesph BID TP 06/21/20 21:00 06/28/20 21:00 Fluoxetine HCl (PROzac) 80 mg DAILY08 PO 06/22/20 08:00 06/28/20 04:40 Non-Formulary Medication (Liraglutide (Saxenda)) 1.8 mg 0800 SQ 06/22/20 08:00 UNV Melatonin (Melatonin) 3 mg HS PO 06/21/20 21:00 06/28/20 21:53 Non-Formulary Medication (Olodaterol HCl (Striverdi Respimat)) 4 gm DAILY08 IH 06/22/20 08:00 UNV Potassium Chloride (Klor-Con) 10 meq TID PO 06/21/20 21:00 06/27/20 16:15 DC 06/27/20 13:12 Quetiapine Fumarate (SEROquel) 300 mg DAILY08 PO 06/22/20 08:00 06/28/20 04:41 Quetiapine Fumarate (SEROquel) 600 mg HS PO 06/21/20 21:00 06/28/20 21:54 Hydroxyzine HCl (Atarax) 25 mg TID PO 06/21/20 21:00 06/28/20 21:53 Albuterol Sulfate (Ventolin Hfa Inhaler) 2 puff PRN Q4HRS PRN INH SHORTNESS OF BREATH 06/21/20 17:15 Divalproex Sodium (Depakote Er) 500 mg QHS PO 06/21/20 21:00 06/24/20 17:35 DC 06/23/20 19:43 Divalproex Sodium (Depakote Er) 500 mg QHS PO 06/22/20 21:00 06/22/20 12:14 DC Sennosides (Senna) 8.6 mg BIDACBL PO 06/23/20 07:30 06/28/20 14:17 Divalproex Sodium (Depakote Er) 750 mg QHS PO 06/24/20 21:00 06/25/20 19:31 DC 06/24/20 21:05 Divalproex Sodium (Depakote Er) 500 mg QHS PO 06/25/20 21:00 06/28/20 21:53 Divalproex Sodium (Depakote Er) 250 mg QHS PO 06/25/20 21:00 06/28/20 21:56 Furosemide (Lasix) 60 mg 1X ONCE PO 06/26/20 21:15 06/26/20 22:10 DC 06/27/20 05:51 Furosemide (Lasix) 40 mg DAILY PO 06/27/20 16:15 06/28/20 04:42 Potassium Chloride (Klor-Con) 20 meq BID PO 06/27/20 21:00 06/28/20 21:00 I have reviewed the current psychotropics carefully including drug interactions. Risk benefit ratio favors no change other than as noted in my dictated progress note. Diagnosis: Problems: (1) Schizoaffective disorder, bipolar type (2) Impulse control disorder, unspecified (3) Anxiety disorder, unspecified (4) Bipolar disorder, current episode depressed, severe, with psychotic features (5) Schizoaffective disorder MICHAEL CLARK MD Jun 29, 2020 07:45
[2020-06-29] MEDS: NON FORMULARY ITEM (Olodaterol HCl (Striverdi Respimat) 4 GM) IH SCH (08:00)
[2020-06-29] MEDS: LIRAGLUTIDE 1.8 MG SQ SCH (08:00)
[2020-06-29] MEDS: SENNOSIDES 8.6 MG TABLET PO SCH ×2 (08:51→14:16)
[2020-06-29] MEDS: ASPIRIN ENTERIC COATED 81 MG TABLET.DR. PO SCH (08:51)
[2020-06-29] MEDS: CALCIUM CARB/VIT D3 500/200 TABLET PO SCH ×2 (08:51→20:55)
[2020-06-29] MEDS: ISOSORBIDE MONONITRATE ER 30 MG TAB.ER.24H PO SCH (08:52)
[2020-06-29] MEDS: hydrOXYzine HCL 25 MG TABLET PO SCH ×3 (08:53→20:54)
[2020-06-29] MEDS: QUEtiapine 100 MG TABLET. PO SCH ×2 (08:53→20:53)
[2020-06-29] MEDS: METOPROLOL TART IMMED RELEASE 25 MG TABLET. PO SCH ×2 (08:53→20:56)
[2020-06-29] MEDS: PANTOPRAZOLE 40 MG TABLET. PO SCH (08:53)
[2020-06-29] MEDS: POTASSIUM CHLORIDE 20 MEQ TABLET.ER. PO SCH ×2 (08:53→20:55)
[2020-06-29] MEDS: ARIPiprazole 15 MG TABLET PO SCH (08:53)
[2020-06-29] MEDS: DOCUSATE SODIUM 100 MG CAPSULE PO SCH ×2 (08:53→20:58)
[2020-06-29] MEDS: FUROSEMIDE 40 MG TABLET PO SCH (08:54)
[2020-06-29] MEDS: amLODIPine BESYLATE 5 MG TABLET PO SCH (08:54)
[2020-06-29] MEDS: FLUoxetine HCL 20 MG CAPSULE PO SCH (08:54)
[2020-06-29] MEDS: SALSALATE 500 MG PO SCH ×2 (08:55→20:57)
[2020-06-29] MEDS: DICLOFENAC SODIUM 1% TOPICAL GEL 100GM TUBE. TP SCH ×4 (09:15→20:51)
[2020-06-29] MEDS: MINERAL OIL/PETROLATUM TOPICAL CREAM 113GM JAR. TP SCH ×2 (09:15→20:58)
[2020-06-29 15:35] VITALS: BP 129/79
[2020-06-29] MEDS: clonazePAM 0.5 MG TABLET PO PRN ×2 (16:57→20:57)
[2020-06-29] MEDS: rOPINIRole 0.5 MG TABLET. PO SCH (20:54)
[2020-06-29] MEDS: DIVALPROEX ER 250 MG TAB.ER.24H. PO SCH (20:55)
[2020-06-29] MEDS: ATORVASTATIN CALCIUM 20 MG TABLET PO SCH (20:55)
[2020-06-29] MEDS: DIVALPROEX ER 500 MG TAB.ER.24H PO SCH (20:56)
[2020-06-29] MEDS: MELATONIN 3 MG TABLET PO SCH (20:57)
--- NOTE | 2020-06-29 22:07 | PDOC ---
Exam Note: [place] Note: Please also refer to the separate dictated note~for this date of service dictated separately.~Patient seen individually. Discussed the patient with Nursing staff reviewed the chart.~Reviewed interim history and current functioning. Reviewed vital signs,~Labs/ Radiology~and current medications noted below. Continue current treatment with the changes noted in the dictated addendum note Assessment: Vital Signs/I&O: Vital Signs Date Time Temp Pulse Resp B/P (MAP) Pulse Ox O2 Delivery O2 Flow Rate FiO2 06/29/20 20:56 67 129/79 06/29/20 15:35 97.3 18 93 Room Air 06/27/20 06:07 2.0 I & O 06/28/20 06/28/20 06/29/20 15:00 23:00 07:00 Intake Total 600 ml 360 ml Balance 600 ml 360 ml Current Medications: Meds: Current Medications Medications (Trade) Dose Ordered Sig/Indra Route PRN Reason Start Time Stop Time Status Last Admin Dose Admin Acetaminophen (Tylenol) 650 mg PRN Q6HRS PRN PO MILD PAIN / TEMP > 100.3'F 06/21/20 16:15 Multi-Ingredient Ointment (Analgesic [place]) 1 joesph PRN QID PRN TP MUSCLE PAIN 06/21/20 16:15 Al Hydroxide/Mg Hydroxide (Mylanta Plus Xs) 15 ml PRN AFTMEALHC PRN PO DYSPEPSIA 06/21/20 16:15 Magnesium Hydroxide (Milk Of Magnesia) 2,400 mg PRN QHS PRN PO CONSTIPATION 06/21/20 16:15 Acetaminophen (Tylenol) 500 mg PRN Q6HRS PRN PO pain or fever 06/21/20 16:30 UNV Albuterol Sulfate (Ventolin) 2.5 mg PRN Q4HRS PRN IH FOR ASTHMA 06/21/20 16:30 UNV Amlodipine Besylate (Norvasc) 5 mg DAILY PO 06/22/20 09:00 06/29/20 08:54 Aripiprazole (Abilify) 15 mg DAILY PO 06/22/20 09:00 06/29/20 08:53 Aspirin (Aspirin Enteric Coated) 81 mg DAILY PO 06/22/20 09:00 06/29/20 08:51 Atorvastatin Calcium (Lipitor) 20 mg QHS PO 06/21/20 21:00 06/29/20 20:55 Calcium/Vitamin D (Oscal D 500mg/ 200uts) 1 tab BID PO 06/21/20 21:00 06/29/20 20:55 Vitamin D (Vitamin D3) 50,000 unit WEEKLY PO 06/25/20 09:00 06/25/20 16:42 Clonazepam (KlonoPIN) 0.5 mg PRN BID PRN PO ANXIETY / AGITATION 06/21/20 16:30 06/29/20 20:57 Cyanocobalamin (Vitamin B-12) 1,000 mcg QMONTH IM 07/17/20 09:00 Diclofenac Sodium (Voltaren) 2 joesph QID TP 06/21/20 17:00 06/29/20 20:51 Docusate Sodium (Colace) 100 mg BID PO 06/21/20 21:00 06/29/20 20:58 Furosemide (Lasix) 20 mg DAILY16 PO 06/22/20 16:00 06/27/20 16:15 DC 06/26/20 15:52 Isosorbide Mononitrate (Imdur) 30 mg DAILY08 PO 06/22/20 08:00 06/29/20 08:52 Ketoconazole (Nizoral 2% Shampoo) 1 joesph PRN DAILY PRN TP DANDRUFF 06/21/20 16:30 Levothyroxine Sodium (Synthroid) 75 mcg DAILY06 PO 06/22/20 06:00 06/29/20 05:29 Metoprolol Tartrate (Lopressor) 12.5 mg BID PO 06/21/20 21:00 06/29/20 20:56 Pantoprazole Sodium (Protonix) 40 mg DAILY08 PO 06/22/20 08:00 06/29/20 08:53 Ropinirole HCl (Requip) 0.5 mg HS PO 06/21/20 21:00 06/29/20 20:54 Salsalate (Salsalate) 1,000 mg 2100 PO 06/21/20 21:00 06/29/20 20:57 Salsalate (Salsalate) 1,500 mg 0800 PO 06/22/20 08:00 06/29/20 08:55 Sennosides (Senna) 8.6 mg BID76 PO 06/21/20 18:00 06/23/20 05:00 DC 06/22/20 16:04 Tramadol HCl (Ultram) 50 mg PRN Q6HRS PRN PO PAIN 06/21/20 16:30 06/25/20 01:42 Triamcinolone Acetonide (Kenalog) 1 joesph PRN Q12HR PRN TP ITCHING 06/21/20 16:30 Vitamin A/Vitamin D (Vitamin A & D Ointment) 1 joesph PRN Q1HR PRN TP DRY SKIN / SCALING 06/21/20 16:30 Multi-Ingred Cream/Lotion/Oil/ Oint (Hydrocerin) 1 joesph BID TP 06/21/20 21:00 06/29/20 20:58 Fluoxetine HCl (PROzac) 80 mg DAILY08 PO 06/22/20 08:00 06/29/20 08:54 Non-Formulary Medication (Liraglutide (Saxenda)) 1.8 mg 0800 SQ 06/22/20 08:00 UNV Melatonin (Melatonin) 3 mg HS PO 06/21/20 21:00 06/29/20 20:57 Non-Formulary Medication (Olodaterol HCl (Striverdi Respimat)) 4 gm DAILY08 IH 06/22/20 08:00 UNV Potassium Chloride (Klor-Con) 10 meq TID PO 06/21/20 21:00 06/27/20 16:15 DC 06/27/20 13:12 Quetiapine Fumarate (SEROquel) 300 mg DAILY08 PO 06/22/20 08:00 06/29/20 08:53 Quetiapine Fumarate (SEROquel) 600 mg HS PO 06/21/20 21:00 06/29/20 20:53 Hydroxyzine HCl (Atarax) 25 mg TID PO 06/21/20 21:00 06/29/20 20:54 Albuterol Sulfate (Ventolin Hfa Inhaler) 2 puff PRN Q4HRS PRN INH SHORTNESS OF BREATH 06/21/20 17:15 Divalproex Sodium (Depakote Er) 500 mg QHS PO 06/21/20 21:00 06/24/20 17:35 DC 06/23/20 19:43 Divalproex Sodium (Depakote Er) 500 mg QHS PO 06/22/20 21:00 4/16/21 12:14 DC Sennosides (Senna) 8.6 mg [id number] PO 06/23/20 07:30 06/29/20 14:16 Divalproex Sodium (Depakote Er) 750 mg QHS PO 06/24/20 21:00 06/25/20 19:31 DC 06/24/20 21:05 Divalproex Sodium (Depakote Er) 500 mg QHS PO 06/25/20 21:00 06/29/20 20:56 Divalproex Sodium (Depakote Er) 250 mg QHS PO 06/25/20 21:00 06/29/20 20:55 Furosemide (Lasix) 60 mg 1X ONCE PO 06/26/20 21:15 06/26/20 22:10 DC 06/27/20 05:51 Furosemide (Lasix) 40 mg DAILY PO 06/27/20 16:15 06/29/20 08:54 Potassium Chloride (Klor-Con) 20 meq BID PO 06/27/20 21:00 06/29/20 20:55 I have reviewed the current psychotropics carefully including drug interactions. Risk benefit ratio favors no change other than as noted in my dictated progress note. Diagnosis: Problems: (1) Schizoaffective disorder, bipolar type (2) Impulse control disorder, unspecified (3) Anxiety disorder, unspecified (4) Bipolar disorder, current episode depressed, severe, with psychotic features MICHAEL CLARK MD Jun 29, 2020 22:07
[2020-06-30] MEDS: clonazePAM 0.5 MG TABLET PO PRN ×2 (05:30→17:30)
[2020-06-30] MEDS: LEVOTHYROXINE 75 MCG TABLET PO SCH (05:31)
[2020-06-30 06:43] VITALS: BP 159/76
[2020-06-30] MEDS: NON FORMULARY ITEM (Olodaterol HCl (Striverdi Respimat) 4 GM) IH SCH (08:00)
[2020-06-30] MEDS: LIRAGLUTIDE 1.8 MG SQ SCH (08:00)
[2020-06-30] MEDS: ASPIRIN ENTERIC COATED 81 MG TABLET.DR. PO SCH (08:21)
[2020-06-30] MEDS: SENNOSIDES 8.6 MG TABLET PO SCH ×2 (08:21→11:30)
[2020-06-30] MEDS: amLODIPine BESYLATE 5 MG TABLET PO SCH (08:22)
[2020-06-30] MEDS: FUROSEMIDE 40 MG TABLET PO SCH (08:22)
[2020-06-30] MEDS: CALCIUM CARB/VIT D3 500/200 TABLET PO SCH ×2 (08:22→20:22)
[2020-06-30] MEDS: QUEtiapine 100 MG TABLET. PO SCH ×2 (08:22→20:19)
[2020-06-30] MEDS: ARIPiprazole 15 MG TABLET PO SCH (08:23)
[2020-06-30] MEDS: POTASSIUM CHLORIDE 20 MEQ TABLET.ER. PO SCH ×2 (08:23→20:22)
[2020-06-30] MEDS: DOCUSATE SODIUM 100 MG CAPSULE PO SCH ×2 (08:23→20:23)
[2020-06-30] MEDS: hydrOXYzine HCL 25 MG TABLET PO SCH ×3 (08:23→20:19)
[2020-06-30] MEDS: PANTOPRAZOLE 40 MG TABLET. PO SCH (08:23)
[2020-06-30] MEDS: FLUoxetine HCL 20 MG CAPSULE PO SCH (08:23)
[2020-06-30] MEDS: ISOSORBIDE MONONITRATE ER 30 MG TAB.ER.24H PO SCH (08:24)
[2020-06-30] MEDS: METOPROLOL TART IMMED RELEASE 25 MG TABLET. PO SCH ×2 (08:25→20:21)
[2020-06-30] MEDS: SALSALATE 500 MG PO SCH ×2 (08:26→20:24)
[2020-06-30] MEDS: MINERAL OIL/PETROLATUM TOPICAL CREAM 113GM JAR. TP SCH ×2 (08:27→20:26)
[2020-06-30] MEDS: DICLOFENAC SODIUM 1% TOPICAL GEL 100GM TUBE. TP SCH ×4 (08:27→20:26)
[2020-06-30 15:55] VITALS: BP 132/83
[2020-06-30] MEDS: ATORVASTATIN CALCIUM 20 MG TABLET PO SCH (20:22)
[2020-06-30] MEDS: DIVALPROEX ER 250 MG TAB.ER.24H. PO SCH (20:23)
[2020-06-30] MEDS: MELATONIN 3 MG TABLET PO SCH (20:23)
[2020-06-30] MEDS: rOPINIRole 0.5 MG TABLET. PO SCH (20:23)
[2020-06-30] MEDS: DIVALPROEX ER 500 MG TAB.ER.24H PO SCH (20:25)
--- NOTE | 2020-06-30 22:00 | PDOC ---
Exam Note: [place] Note: Please also refer to the separate dictated note~for this date of service dictated separately.~Patient seen individually. Discussed the patient with Nursing staff reviewed the chart.~Reviewed interim history and current functioning. Reviewed vital signs,~Labs/ Radiology~and current medications noted below. Continue current treatment with the changes noted in the dictated addendum note Assessment: Vital Signs/I&O: Vital Signs Date Time Temp Pulse Resp B/P (MAP) Pulse Ox O2 Delivery O2 Flow Rate FiO2 06/30/20 20:21 60 132/83 06/30/20 15:55 97.2 18 94 06/29/20 15:35 Room Air 06/27/20 06:07 2.0 I & O 06/29/20 06/29/20 06/30/20 15:00 23:00 07:00 Intake Total 720 ml 360 ml 120 ml Balance 720 ml 360 ml 120 ml Current Medications: Meds: Current Medications Medications (Trade) Dose Ordered Sig/Indra Route PRN Reason Start Time Stop Time Status Last Admin Dose Admin Acetaminophen (Tylenol) 650 mg PRN Q6HRS PRN PO MILD PAIN / TEMP > 100.3'F 06/21/20 16:15 Multi-Ingredient Ointment (Analgesic [place]) 1 joesph PRN QID PRN TP MUSCLE PAIN 06/21/20 16:15 Al Hydroxide/Mg Hydroxide (Mylanta Plus Xs) 15 ml PRN AFTMEALHC PRN PO DYSPEPSIA 06/21/20 16:15 Magnesium Hydroxide (Milk Of Magnesia) 2,400 mg PRN QHS PRN PO CONSTIPATION 06/21/20 16:15 Acetaminophen (Tylenol) 500 mg PRN Q6HRS PRN PO pain or fever 06/21/20 16:30 UNV Albuterol Sulfate (Ventolin) 2.5 mg PRN Q4HRS PRN IH FOR ASTHMA 06/21/20 16:30 UNV Amlodipine Besylate (Norvasc) 5 mg DAILY PO 06/22/20 09:00 06/30/20 08:22 Aripiprazole (Abilify) 15 mg DAILY PO 06/22/20 09:00 06/30/20 08:23 Aspirin (Aspirin Enteric Coated) 81 mg DAILY PO 06/22/20 09:00 06/30/20 08:21 Atorvastatin Calcium (Lipitor) 20 mg QHS PO 06/21/20 21:00 06/30/20 20:22 Calcium/Vitamin D (Oscal D 500mg/ 200uts) 1 tab BID PO 06/21/20 21:00 06/30/20 20:22 Vitamin D (Vitamin D3) 50,000 unit WEEKLY PO 06/25/20 09:00 06/25/20 16:42 Clonazepam (KlonoPIN) 0.5 mg PRN BID PRN PO ANXIETY / AGITATION 06/21/20 16:30 06/30/20 17:30 Cyanocobalamin (Vitamin B-12) 1,000 mcg QMONTH IM 07/17/20 09:00 Diclofenac Sodium (Voltaren) 2 joesph QID TP 06/21/20 17:00 06/30/20 20:26 Docusate Sodium (Colace) 100 mg BID PO 06/21/20 21:00 06/30/20 20:23 Furosemide (Lasix) 20 mg DAILY16 PO 06/22/20 16:00 06/27/20 16:15 DC 06/26/20 15:52 Isosorbide Mononitrate (Imdur) 30 mg DAILY08 PO 06/22/20 08:00 06/30/20 08:24 Ketoconazole (Nizoral 2% Shampoo) 1 joesph PRN DAILY PRN TP DANDRUFF 06/21/20 16:30 Levothyroxine Sodium (Synthroid) 75 mcg DAILY06 PO 06/22/20 06:00 06/30/20 05:31 Metoprolol Tartrate (Lopressor) 12.5 mg BID PO 06/21/20 21:00 06/30/20 20:21 Pantoprazole Sodium (Protonix) 40 mg DAILY08 PO 06/22/20 08:00 06/30/20 08:23 Ropinirole HCl (Requip) 0.5 mg HS PO 06/21/20 21:00 06/30/20 20:23 Salsalate (Salsalate) 1,000 mg 2100 PO 06/21/20 21:00 06/30/20 20:24 Salsalate (Salsalate) 1,500 mg 0800 PO 06/22/20 08:00 06/30/20 08:26 Sennosides (Senna) 8.6 mg BID76 PO 06/21/20 18:00 06/23/20 05:00 DC 06/22/20 16:04 Tramadol HCl (Ultram) 50 mg PRN Q6HRS PRN PO PAIN 06/21/20 16:30 06/25/20 01:42 Triamcinolone Acetonide (Kenalog) 1 joesph PRN Q12HR PRN TP ITCHING 06/21/20 16:30 Vitamin A/Vitamin D (Vitamin A & D Ointment) 1 joesph PRN Q1HR PRN TP DRY SKIN / SCALING 06/21/20 16:30 Multi-Ingred Cream/Lotion/Oil/ Oint (Hydrocerin) 1 joesph BID TP 06/21/20 21:00 06/30/20 20:26 Fluoxetine HCl (PROzac) 80 mg DAILY08 PO 06/22/20 08:00 06/30/20 08:23 Non-Formulary Medication (Liraglutide (Saxenda)) 1.8 mg 0800 SQ 06/22/20 08:00 UNV Melatonin (Melatonin) 3 mg HS PO 06/21/20 21:00 06/30/20 20:23 Non-Formulary Medication (Olodaterol HCl (Striverdi Respimat)) 4 gm DAILY08 IH 06/22/20 08:00 UNV Potassium Chloride (Klor-Con) 10 meq TID PO 06/21/20 21:00 06/27/20 16:15 DC 06/27/20 13:12 Quetiapine Fumarate (SEROquel) 300 mg DAILY08 PO 06/22/20 08:00 06/30/20 08:22 Quetiapine Fumarate (SEROquel) 600 mg HS PO 06/21/20 21:00 06/30/20 20:19 Hydroxyzine HCl (Atarax) 25 mg TID PO 06/21/20 21:00 06/30/20 20:19 Albuterol Sulfate (Ventolin Hfa Inhaler) 2 puff PRN Q4HRS PRN INH SHORTNESS OF BREATH 06/21/20 17:15 Divalproex Sodium (Depakote Er) 500 mg QHS PO 06/21/20 21:00 06/24/20 17:35 DC 06/23/20 19:43 Divalproex Sodium (Depakote Er) 500 mg QHS PO 06/22/20 21:00 06/22/20 12:14 DC Sennosides (Senna) 8.6 mg BIDACBL PO 06/23/20 07:30 06/30/20 11:30 Divalproex Sodium (Depakote Er) 750 mg QHS PO 06/24/20 21:00 06/25/20 19:31 DC 06/24/20 21:05 Divalproex Sodium (Depakote Er) 500 mg QHS PO 06/25/20 21:00 06/30/20 20:25 Divalproex Sodium (Depakote Er) 250 mg QHS PO 06/25/20 21:00 06/30/20 20:23 Furosemide (Lasix) 60 mg 1X ONCE PO 06/26/20 21:15 06/26/20 22:10 DC 06/27/20 05:51 Furosemide (Lasix) 40 mg DAILY PO 06/27/20 16:15 06/30/20 08:22 Potassium Chloride (Klor-Con) 20 meq BID PO 06/27/20 21:00 06/30/20 20:22 I have reviewed the current psychotropics carefully including drug interactions. Risk benefit ratio favors no change other than as noted in my dictated progress note. Diagnosis: Problems: (1) Schizoaffective disorder, bipolar type (2) Impulse control disorder, unspecified (3) Anxiety disorder, unspecified (4) Bipolar disorder, current episode depressed, severe, with psychotic features MICHAEL CLARK MD Jun 30, 2020 22:00
[2020-07-01] MEDS: LEVOTHYROXINE 75 MCG TABLET PO SCH (05:29)
[2020-07-01] MEDS: clonazePAM 0.5 MG TABLET PO PRN ×2 (05:32→19:58)
[2020-07-01 06:19] VITALS: BP 136/75
[2020-07-01] MEDS: NON FORMULARY ITEM (Olodaterol HCl (Striverdi Respimat) 4 GM) IH SCH (08:00)
[2020-07-01] MEDS: LIRAGLUTIDE 1.8 MG SQ SCH (08:00)
[2020-07-01] MEDS: QUEtiapine 100 MG TABLET. PO SCH ×2 (08:27→19:59)
[2020-07-01] MEDS: hydrOXYzine HCL 25 MG TABLET PO SCH ×3 (08:27→19:56)
[2020-07-01] MEDS: FLUoxetine HCL 20 MG CAPSULE PO SCH (08:27)
[2020-07-01] MEDS: ISOSORBIDE MONONITRATE ER 30 MG TAB.ER.24H PO SCH (08:27)
[2020-07-01] MEDS: ARIPiprazole 15 MG TABLET PO SCH (08:27)
[2020-07-01] MEDS: CALCIUM CARB/VIT D3 500/200 TABLET PO SCH ×2 (08:28→19:59)
[2020-07-01] MEDS: SENNOSIDES 8.6 MG TABLET PO SCH ×2 (08:29→11:30)
[2020-07-01] MEDS: METOPROLOL TART IMMED RELEASE 25 MG TABLET. PO SCH ×2 (08:29→19:55)
[2020-07-01] MEDS: POTASSIUM CHLORIDE 20 MEQ TABLET.ER. PO SCH ×2 (08:29→19:56)
[2020-07-01] MEDS: ASPIRIN ENTERIC COATED 81 MG TABLET.DR. PO SCH (08:29)
[2020-07-01] MEDS: DOCUSATE SODIUM 100 MG CAPSULE PO SCH ×2 (08:29→19:57)
[2020-07-01] MEDS: amLODIPine BESYLATE 5 MG TABLET PO SCH (08:29)
[2020-07-01] MEDS: PANTOPRAZOLE 40 MG TABLET. PO SCH (08:30)
[2020-07-01] MEDS: FUROSEMIDE 40 MG TABLET PO SCH (08:30)
[2020-07-01] MEDS: DICLOFENAC SODIUM 1% TOPICAL GEL 100GM TUBE. TP SCH ×4 (08:31→20:00)
[2020-07-01] MEDS: SALSALATE 500 MG PO SCH ×2 (08:31→19:55)
[2020-07-01] MEDS: MINERAL OIL/PETROLATUM TOPICAL CREAM 113GM JAR. TP SCH ×2 (08:34→20:01)
[2020-07-01 16:03] VITALS: BP 138/68
[2020-07-01] MEDS: DIVALPROEX ER 250 MG TAB.ER.24H. PO SCH (19:57)
[2020-07-01] MEDS: DIVALPROEX ER 500 MG TAB.ER.24H PO SCH (19:57)
[2020-07-01] MEDS: rOPINIRole 0.5 MG TABLET. PO SCH (19:58)
[2020-07-01] MEDS: MELATONIN 3 MG TABLET PO SCH (19:58)
[2020-07-01] MEDS: ATORVASTATIN CALCIUM 20 MG TABLET PO SCH (19:58)
--- NOTE | 2020-07-01 22:10 | PDOC ---
Exam Note: [place] Note: Please also refer to the separate dictated note~for this date of service dictated separately.~Patient seen individually. Discussed the patient with Nursing staff reviewed the chart.~Reviewed interim history and current functioning. Reviewed vital signs,~Labs/ Radiology~and current medications noted below. Continue current treatment with the changes noted in the dictated addendum note Assessment: Vital Signs/I&O: Vital Signs Date Time Temp Pulse Resp B/P (MAP) Pulse Ox O2 Delivery O2 Flow Rate FiO2 07/01/20 19:55 65 138/68 07/01/20 16:03 97.7 16 93 06/29/20 15:35 Room Air 06/27/20 06:07 2.0 I & O 06/30/20 06/30/20 07/01/20 15:00 23:00 07:00 Intake Total 600 ml 480 ml Balance 600 ml 480 ml Current Medications: Meds: Current Medications Medications (Trade) Dose Ordered Sig/Indra Route PRN Reason Start Time Stop Time Status Last Admin Dose Admin Acetaminophen (Tylenol) 650 mg PRN Q6HRS PRN PO MILD PAIN / TEMP > 100.3'F 06/21/20 16:15 Multi-Ingredient Ointment (Analgesic [place]) 1 joesph PRN QID PRN TP MUSCLE PAIN 06/21/20 16:15 Al Hydroxide/Mg Hydroxide (Mylanta Plus Xs) 15 ml PRN AFTMEALHC PRN PO DYSPEPSIA 06/21/20 16:15 Magnesium Hydroxide (Milk Of Magnesia) 2,400 mg PRN QHS PRN PO CONSTIPATION 06/21/20 16:15 Acetaminophen (Tylenol) 500 mg PRN Q6HRS PRN PO pain or fever 06/21/20 16:30 UNV Albuterol Sulfate (Ventolin) 2.5 mg PRN Q4HRS PRN IH FOR ASTHMA 06/21/20 16:30 UNV Amlodipine Besylate (Norvasc) 5 mg DAILY PO 06/22/20 09:00 07/01/20 08:29 Aripiprazole (Abilify) 15 mg DAILY PO 06/22/20 09:00 07/01/20 08:27 Aspirin (Aspirin Enteric Coated) 81 mg DAILY PO 06/22/20 09:00 07/01/20 08:29 Atorvastatin Calcium (Lipitor) 20 mg QHS PO 06/21/20 21:00 07/01/20 19:58 Calcium/Vitamin D (Oscal D 500mg/ 200uts) 1 tab BID PO 06/21/20 21:00 07/01/20 19:59 Vitamin D (Vitamin D3) 50,000 unit WEEKLY PO 06/25/20 09:00 06/25/20 16:42 Clonazepam (KlonoPIN) 0.5 mg PRN BID PRN PO ANXIETY / AGITATION 06/21/20 16:30 07/01/20 19:58 Cyanocobalamin (Vitamin B-12) 1,000 mcg QMONTH IM 07/17/20 09:00 Diclofenac Sodium (Voltaren) 2 joesph QID TP 06/21/20 17:00 07/01/20 20:00 Docusate Sodium (Colace) 100 mg BID PO 06/21/20 21:00 07/01/20 19:57 Furosemide (Lasix) 20 mg DAILY16 PO 06/22/20 16:00 06/27/20 16:15 DC 06/26/20 15:52 Isosorbide Mononitrate (Imdur) 30 mg DAILY08 PO 06/22/20 08:00 07/01/20 08:27 Ketoconazole (Nizoral 2% Shampoo) 1 joesph PRN DAILY PRN TP DANDRUFF 06/21/20 16:30 Levothyroxine Sodium (Synthroid) 75 mcg DAILY06 PO 06/22/20 06:00 07/01/20 05:29 Metoprolol Tartrate (Lopressor) 12.5 mg BID PO 06/21/20 21:00 07/01/20 19:55 Pantoprazole Sodium (Protonix) 40 mg DAILY08 PO 06/22/20 08:00 07/01/20 08:30 Ropinirole HCl (Requip) 0.5 mg HS PO 06/21/20 21:00 07/01/20 19:58 Salsalate (Salsalate) 1,000 mg 2100 PO 06/21/20 21:00 07/01/20 19:55 Salsalate (Salsalate) 1,500 mg 0800 PO 06/22/20 08:00 07/01/20 08:31 Sennosides (Senna) 8.6 mg BID76 PO 06/21/20 18:00 06/23/20 05:00 DC 06/22/20 16:04 Tramadol HCl (Ultram) 50 mg PRN Q6HRS PRN PO PAIN 06/21/20 16:30 06/25/20 01:42 Triamcinolone Acetonide (Kenalog) 1 joesph PRN Q12HR PRN TP ITCHING 06/21/20 16:30 Vitamin A/Vitamin D (Vitamin A & D Ointment) 1 joesph PRN Q1HR PRN TP DRY SKIN / SCALING 06/21/20 16:30 Multi-Ingred Cream/Lotion/Oil/ Oint (Hydrocerin) 1 joesph BID TP 06/21/20 21:00 07/01/20 20:01 Fluoxetine HCl (PROzac) 80 mg DAILY08 PO 06/22/20 08:00 07/01/20 08:27 Non-Formulary Medication (Liraglutide (Saxenda)) 1.8 mg 0800 SQ 06/22/20 08:00 UNV Melatonin (Melatonin) 3 mg HS PO 06/21/20 21:00 07/01/20 19:58 Non-Formulary Medication (Olodaterol HCl (Striverdi Respimat)) 4 gm DAILY08 IH 06/22/20 08:00 UNV Potassium Chloride (Klor-Con) 10 meq TID PO 06/21/20 21:00 06/27/20 16:15 DC 06/27/20 13:12 Quetiapine Fumarate (SEROquel) 300 mg DAILY08 PO 06/22/20 08:00 07/01/20 08:27 Quetiapine Fumarate (SEROquel) 600 mg HS PO 06/21/20 21:00 07/01/20 19:59 Hydroxyzine HCl (Atarax) 25 mg TID PO 06/21/20 21:00 07/01/20 19:56 Albuterol Sulfate (Ventolin Hfa Inhaler) 2 puff PRN Q4HRS PRN INH SHORTNESS OF BREATH 06/21/20 17:15 Divalproex Sodium (Depakote Er) 500 mg QHS PO 06/21/20 21:00 06/24/20 17:35 DC 06/23/20 19:43 Divalproex Sodium (Depakote Er) 500 mg QHS PO 06/22/20 21:00 06/22/20 12:14 DC Sennosides (Senna) 8.6 mg BIDACBL PO 06/23/20 07:30 07/01/20 11:30 Divalproex Sodium (Depakote Er) 750 mg QHS PO 06/24/20 21:00 06/25/20 19:31 DC 06/24/20 21:05 Divalproex Sodium (Depakote Er) 500 mg QHS PO 06/25/20 21:00 07/01/20 19:57 Divalproex Sodium (Depakote Er) 250 mg QHS PO 06/25/20 21:00 07/01/20 19:57 Furosemide (Lasix) 60 mg 1X ONCE PO 06/26/20 21:15 06/26/20 22:10 DC 06/27/20 05:51 Furosemide (Lasix) 40 mg DAILY PO 06/27/20 16:15 07/01/20 08:30 Potassium Chloride (Klor-Con) 20 meq BID PO 06/27/20 21:00 07/01/20 19:56 I have reviewed the current psychotropics carefully including drug interactions. Risk benefit ratio favors no change other than as noted in my dictated progress note. Diagnosis: Problems: (1) Schizoaffective disorder, bipolar type (2) Impulse control disorder, unspecified (3) Anxiety disorder, unspecified (4) Bipolar disorder, current episode depressed, severe, with psychotic features MICHAEL CLARK MD Jul 01, 2020 22:10
[2020-07-02] MEDS: LEVOTHYROXINE 75 MCG TABLET PO SCH (05:59)
[2020-07-02] MEDS: clonazePAM 0.5 MG TABLET PO PRN (06:01)
[2020-07-02 06:37] VITALS: BP 144/59
--- NOTE | 2020-07-02 06:44 | PDOC ---
Exam Note: [place] Note: This note is a late entry for 06/29/2020 covers elements not covered in my initial note. Subjective: The patient was seen individually in the evening of 06/29/2020 with Jayy WOMACK, discussed and reviewed the chart. The patient slept 5-3/4 hours previous night. Overall the patient is doing better, less anxious, restless, less hyperverbal and less manic, improved mood lability. Review of Systems: Ambulation impaired in wheelchair. No CV, , eye system symptoms on review. Mental Status Exam: The patient is awake, alert and oriented. Speech coherent. Abstraction fair. Computation impaired. Language function intact. Mood and affect improved, less manic. Laboratory Data: Reviewed. Impression: Schizoaffective disorder, bipolar type, mixed with psychotic features in partial remission. Anxiety disorder unspecified. Impulse control disorder unspecified. Plan: No change from initial note. Assessment: Vital Signs/I&O: Vital Signs Date Time Temp Pulse Resp B/P (MAP) Pulse Ox O2 Delivery O2 Flow Rate FiO2 07/02/20 06:37 97.1 64 16 144/59 (87) 91 06/29/20 15:35 Room Air 06/27/20 06:07 2.0 I & O 07/01/20 07/01/20 07/02/20 15:00 23:00 07:00 Intake Total 720 ml 480 ml 120 ml Balance 720 ml 480 ml 120 ml Current Medications: Meds: Current Medications Medications (Trade) Dose Ordered Sig/Indra Route PRN Reason Start Time Stop Time Status Last Admin Dose Admin Acetaminophen (Tylenol) 650 mg PRN Q6HRS PRN PO MILD PAIN / TEMP > 100.3'F 06/21/20 16:15 Multi-Ingredient Ointment (Analgesic [place]) 1 joesph PRN QID PRN TP MUSCLE PAIN 06/21/20 16:15 Al Hydroxide/Mg Hydroxide (Mylanta Plus Xs) 15 ml PRN AFTMEALHC PRN PO DYSPEPSIA 06/21/20 16:15 Magnesium Hydroxide (Milk Of Magnesia) 2,400 mg PRN QHS PRN PO CONSTIPATION 06/21/20 16:15 Acetaminophen (Tylenol) 500 mg PRN Q6HRS PRN PO pain or fever 06/21/20 16:30 UNV Albuterol Sulfate (Ventolin) 2.5 mg PRN Q4HRS PRN IH FOR ASTHMA 06/21/20 16:30 UNV Amlodipine Besylate (Norvasc) 5 mg DAILY PO 06/22/20 09:00 07/01/20 08:29 Aripiprazole (Abilify) 15 mg DAILY PO 06/22/20 09:00 07/01/20 08:27 Aspirin (Aspirin Enteric Coated) 81 mg DAILY PO 06/22/20 09:00 07/01/20 08:29 Atorvastatin Calcium (Lipitor) 20 mg QHS PO 06/21/20 21:00 07/01/20 19:58 Calcium/Vitamin D (Oscal D 500mg/ 200uts) 1 tab BID PO 06/21/20 21:00 07/01/20 19:59 Vitamin D (Vitamin D3) 50,000 unit WEEKLY PO 06/25/20 09:00 06/25/20 16:42 Clonazepam (KlonoPIN) 0.5 mg PRN BID PRN PO ANXIETY / AGITATION 06/21/20 16:30 07/02/20 06:01 Cyanocobalamin (Vitamin B-12) 1,000 mcg QMONTH IM 07/17/20 09:00 Diclofenac Sodium (Voltaren) 2 joesph QID TP 06/21/20 17:00 07/01/20 20:00 Docusate Sodium (Colace) 100 mg BID PO 06/21/20 21:00 07/01/20 19:57 Furosemide (Lasix) 20 mg DAILY16 PO 06/22/20 16:00 06/27/20 16:15 DC 06/26/20 15:52 Isosorbide Mononitrate (Imdur) 30 mg DAILY08 PO 06/22/20 08:00 07/01/20 08:27 Ketoconazole (Nizoral 2% Shampoo) 1 joesph PRN DAILY PRN TP DANDRUFF 06/21/20 16:30 Levothyroxine Sodium (Synthroid) 75 mcg DAILY06 PO 06/22/20 06:00 07/02/20 05:59 Metoprolol Tartrate (Lopressor) 12.5 mg BID PO 06/21/20 21:00 07/01/20 19:55 Pantoprazole Sodium (Protonix) 40 mg DAILY08 PO 06/22/20 08:00 07/01/20 08:30 Ropinirole HCl (Requip) 0.5 mg HS PO 06/21/20 21:00 07/01/20 19:58 Salsalate (Salsalate) 1,000 mg 2100 PO 06/21/20 21:00 07/01/20 19:55 Salsalate (Salsalate) 1,500 mg 0800 PO 06/22/20 08:00 07/01/20 08:31 Sennosides (Senna) 8.6 mg BID76 PO 06/21/20 18:00 06/23/20 05:00 DC 06/22/20 16:04 Tramadol HCl (Ultram) 50 mg PRN Q6HRS PRN PO PAIN 06/21/20 16:30 06/25/20 01:42 Triamcinolone Acetonide (Kenalog) 1 joesph PRN Q12HR PRN TP ITCHING 06/21/20 16:30 Vitamin A/Vitamin D (Vitamin A & D Ointment) 1 joesph PRN Q1HR PRN TP DRY SKIN / SCALING 06/21/20 16:30 Multi-Ingred Cream/Lotion/Oil/ Oint (Hydrocerin) 1 joesph BID TP 06/21/20 21:00 07/01/20 20:01 Fluoxetine HCl (PROzac) 80 mg DAILY08 PO 06/22/20 08:00 07/01/20 08:27 Non-Formulary Medication (Liraglutide (Saxenda)) 1.8 mg 0800 SQ 06/22/20 08:00 UNV Melatonin (Melatonin) 3 mg HS PO 06/21/20 21:00 07/01/20 19:58 Non-Formulary Medication (Olodaterol HCl (Striverdi Respimat)) 4 gm DAILY08 IH 06/22/20 08:00 UNV Potassium Chloride (Klor-Con) 10 meq TID PO 06/21/20 21:00 06/27/20 16:15 DC 06/27/20 13:12 Quetiapine Fumarate (SEROquel) 300 mg DAILY08 PO 06/22/20 08:00 07/01/20 08:27 Quetiapine Fumarate (SEROquel) 600 mg HS PO 06/21/20 21:00 07/01/20 19:59 Hydroxyzine HCl (Atarax) 25 mg TID PO 06/21/20 21:00 07/01/20 19:56 Albuterol Sulfate (Ventolin Hfa Inhaler) 2 puff PRN Q4HRS PRN INH SHORTNESS OF BREATH 06/21/20 17:15 Divalproex Sodium (Depakote Er) 500 mg QHS PO 06/21/20 21:00 06/24/20 17:35 DC 06/23/20 19:43 Divalproex Sodium (Depakote Er) 500 mg QHS PO 06/22/20 21:00 06/22/20 12:14 DC Sennosides (Senna) 8.6 mg BIDACBL PO 06/23/20 07:30 07/01/20 11:30 Divalproex Sodium (Depakote Er) 750 mg QHS PO 06/24/20 21:00 06/25/20 19:31 DC 06/24/20 21:05 Divalproex Sodium (Depakote Er) 500 mg QHS PO 06/25/20 21:00 07/01/20 19:57 Divalproex Sodium (Depakote Er) 250 mg QHS PO 06/25/20 21:00 07/01/20 19:57 Furosemide (Lasix) 60 mg 1X ONCE PO 06/26/20 21:15 06/26/20 22:10 DC 06/27/20 05:51 Furosemide (Lasix) 40 mg DAILY PO 06/27/20 16:15 07/01/20 08:30 Potassium Chloride (Klor-Con) 20 meq BID PO 06/27/20 21:00 07/01/20 19:56 I have reviewed the current psychotropics carefully including drug interactions. Risk benefit ratio favors no change other than as noted in my dictated progress note. Diagnosis: Problems: (1) Schizoaffective disorder, bipolar type (2) Impulse control disorder, unspecified (3) Anxiety disorder, unspecified (4) Bipolar disorder, current episode depressed, severe, with psychotic features MICHAEL CLARK MD Jul 02, 2020 06:44
--- NOTE | 2020-07-02 07:33 | PDOC ---
Exam Note: [place] Note: This note is a late entry for 06/30/2020 covers elements not covered in my initial note. Subjective: The patient was seen individually in the evening of 06/30/2020 with Emerald WOMACK, discussed and reviewed the chart. The patient slept 4-3/4 hours previous night. She has been pleasant. She had a telephone call to family and then was tearful. She is more anxious in the evening. She received Klonopin with supper and did better after that. Review of Systems: Ambulation impaired in wheelchair. No CV, , eye system symptoms on review. Mental Status Exam: The patient is oriented to herself. I met with her in her room. She is less anxious, restless. Speech coherent. Abstraction fair. Computation impaired. Language function intact. Mood and affect withdrawn. Laboratory Data: Reviewed. Impression: Schizoaffective disorder, bipolar type, mixed with psychotic features in partial remission. Anxiety disorder unspecified. Impulse control disorder unspecified. Plan: We discussed discharge plans to [facility] next week where she will also get her Oncology follow-up ad she was very pleased with this. She was appreciative of the care. Rest unchanged from initial note. Assessment: Vital Signs/I&O: Vital Signs Date Time Temp Pulse Resp B/P (MAP) Pulse Ox O2 Delivery O2 Flow Rate FiO2 07/02/20 06:37 97.1 64 16 144/59 (87) 91 06/29/20 15:35 Room Air 06/27/20 06:07 2.0 I & O 07/01/20 07/01/20 07/02/20 15:00 23:00 07:00 Intake Total 720 ml 480 ml 120 ml Balance 720 ml 480 ml 120 ml Current Medications: Meds: Current Medications Medications (Trade) Dose Ordered Sig/Indra Route PRN Reason Start Time Stop Time Status Last Admin Dose Admin Acetaminophen (Tylenol) 650 mg PRN Q6HRS PRN PO MILD PAIN / TEMP > 100.3'F 06/21/20 16:15 Multi-Ingredient Ointment (Analgesic [place]) 1 joesph PRN QID PRN TP MUSCLE PAIN 06/21/20 16:15 Al Hydroxide/Mg Hydroxide (Mylanta Plus Xs) 15 ml PRN AFTMEALHC PRN PO DYSPEPSIA 06/21/20 16:15 Magnesium Hydroxide (Milk Of Magnesia) 2,400 mg PRN QHS PRN PO CONSTIPATION 06/21/20 16:15 Acetaminophen (Tylenol) 500 mg PRN Q6HRS PRN PO pain or fever 06/21/20 16:30 UNV Albuterol Sulfate (Ventolin) 2.5 mg PRN Q4HRS PRN IH FOR ASTHMA 06/21/20 16:30 UNV Amlodipine Besylate (Norvasc) 5 mg DAILY PO 06/22/20 09:00 07/01/20 08:29 Aripiprazole (Abilify) 15 mg DAILY PO 06/22/20 09:00 07/01/20 08:27 Aspirin (Aspirin Enteric Coated) 81 mg DAILY PO 06/22/20 09:00 07/01/20 08:29 Atorvastatin Calcium (Lipitor) 20 mg QHS PO 06/21/20 21:00 07/01/20 19:58 Calcium/Vitamin D (Oscal D 500mg/ 200uts) 1 tab BID PO 06/21/20 21:00 07/01/20 19:59 Vitamin D (Vitamin D3) 50,000 unit WEEKLY PO 06/25/20 09:00 06/25/20 16:42 Clonazepam (KlonoPIN) 0.5 mg PRN BID PRN PO ANXIETY / AGITATION 06/21/20 16:30 07/02/20 06:01 Cyanocobalamin (Vitamin B-12) 1,000 mcg QMONTH IM 07/17/20 09:00 Diclofenac Sodium (Voltaren) 2 joesph QID TP 06/21/20 17:00 07/01/20 20:00 Docusate Sodium (Colace) 100 mg BID PO 06/21/20 21:00 07/01/20 19:57 Furosemide (Lasix) 20 mg DAILY16 PO 06/22/20 16:00 06/27/20 16:15 DC 06/26/20 15:52 Isosorbide Mononitrate (Imdur) 30 mg DAILY08 PO 06/22/20 08:00 07/01/20 08:27 Ketoconazole (Nizoral 2% Shampoo) 1 joesph PRN DAILY PRN TP DANDRUFF 06/21/20 16:30 Levothyroxine Sodium (Synthroid) 75 mcg DAILY06 PO 06/22/20 06:00 07/02/20 05:59 Metoprolol Tartrate (Lopressor) 12.5 mg BID PO 06/21/20 21:00 07/01/20 19:55 Pantoprazole Sodium (Protonix) 40 mg DAILY08 PO 06/22/20 08:00 07/01/20 08:30 Ropinirole HCl (Requip) 0.5 mg HS PO 06/21/20 21:00 07/01/20 19:58 Salsalate (Salsalate) 1,000 mg 2100 PO 06/21/20 21:00 07/01/20 19:55 Salsalate (Salsalate) 1,500 mg 0800 PO 06/22/20 08:00 07/01/20 08:31 Sennosides (Senna) 8.6 mg BID76 PO 06/21/20 18:00 06/23/20 05:00 DC 06/22/20 16:04 Tramadol HCl (Ultram) 50 mg PRN Q6HRS PRN PO PAIN 06/21/20 16:30 06/25/20 01:42 Triamcinolone Acetonide (Kenalog) 1 joesph PRN Q12HR PRN TP ITCHING 06/21/20 16:30 Vitamin A/Vitamin D (Vitamin A & D Ointment) 1 joesph PRN Q1HR PRN TP DRY SKIN / SCALING 06/21/20 16:30 Multi-Ingred Cream/Lotion/Oil/ Oint (Hydrocerin) 1 joesph BID TP 06/21/20 21:00 07/01/20 20:01 Fluoxetine HCl (PROzac) 80 mg DAILY08 PO 06/22/20 08:00 07/01/20 08:27 Non-Formulary Medication (Liraglutide (Saxenda)) 1.8 mg 0800 SQ 06/22/20 08:00 UNV Melatonin (Melatonin) 3 mg HS PO 06/21/20 21:00 07/01/20 19:58 Non-Formulary Medication (Olodaterol HCl (Striverdi Respimat)) 4 gm DAILY08 IH 06/22/20 08:00 UNV Potassium Chloride (Klor-Con) 10 meq TID PO 06/21/20 21:00 06/27/20 16:15 DC 06/27/20 13:12 Quetiapine Fumarate (SEROquel) 300 mg DAILY08 PO 06/22/20 08:00 07/01/20 08:27 Quetiapine Fumarate (SEROquel) 600 mg HS PO 06/21/20 21:00 07/01/20 19:59 Hydroxyzine HCl (Atarax) 25 mg TID PO 06/21/20 21:00 07/01/20 19:56 Albuterol Sulfate (Ventolin Hfa Inhaler) 2 puff PRN Q4HRS PRN INH SHORTNESS OF BREATH 06/21/20 17:15 Divalproex Sodium (Depakote Er) 500 mg QHS PO 06/21/20 21:00 06/24/20 17:35 DC 06/23/20 19:43 Divalproex Sodium (Depakote Er) 500 mg QHS PO 06/22/20 21:00 06/22/20 12:14 DC Sennosides (Senna) 8.6 mg BIDACBL PO 06/23/20 07:30 07/01/20 11:30 Divalproex Sodium (Depakote Er) 750 mg QHS PO 06/24/20 21:00 06/25/20 19:31 DC 06/24/20 21:05 Divalproex Sodium (Depakote Er) 500 mg QHS PO 06/25/20 21:00 07/01/20 19:57 Divalproex Sodium (Depakote Er) 250 mg QHS PO 06/25/20 21:00 07/01/20 19:57 Furosemide (Lasix) 60 mg 1X ONCE PO 06/26/20 21:15 06/26/20 22:10 DC 06/27/20 05:51 Furosemide (Lasix) 40 mg DAILY PO 06/27/20 16:15 07/01/20 08:30 Potassium Chloride (Klor-Con) 20 meq BID PO 06/27/20 21:00 07/01/20 19:56 I have reviewed the current psychotropics carefully including drug interactions. Risk benefit ratio favors no change other than as noted in my dictated progress note. Diagnosis: Problems: (1) Schizoaffective disorder, bipolar type (2) Impulse control disorder, unspecified (3) Anxiety disorder, unspecified (4) Bipolar disorder, current episode depressed, severe, with psychotic features MICHAEL CLARK MD Jul 02, 2020 07:33
[2020-07-02] MEDS: NON FORMULARY ITEM (Olodaterol HCl (Striverdi Respimat) 4 GM) IH SCH (08:00)
[2020-07-02] MEDS: LIRAGLUTIDE 1.8 MG SQ SCH (08:00)
--- NOTE | 2020-07-02 08:14 | PDOC ---
Exam Note: [place] Note: This note is a late entry for 07/01/2020 covers elements not covered in my initial note. Subjective: The patient was seen individually in the evening of 07/01/2020 with Emerald WOMACK, discussed and reviewed the chart. The patient slept 4-1/4 hours previous night. She did well in the morning, less tearful but this evening she is extremely anxious, apprehensive, tearful, crying as I met with her. She was seated in a wheelchair stated some of the other demented patients push her wheelchair and she resents this. She is wanting to be discharged to [facility] for further medical management as well. Review of Systems: Ambulation impaired in wheelchair. No CV, , eye system symptoms on review. Mental Status Exam: The patient is oriented to herself. She is anxious, restless. Speech coherent. Abstraction fair. Computation impaired. Language function intact. Mood and affect withdrawn. Laboratory Data: Reviewed. Impression: Schizoaffective disorder, bipolar type, mixed with psychotic features in partial remission. Anxiety disorder unspecified. Impulse control disorder unspecified. Plan: As mentioned above. Assessment: Vital Signs/I&O: Vital Signs Date Time Temp Pulse Resp B/P (MAP) Pulse Ox O2 Delivery O2 Flow Rate FiO2 07/02/20 06:37 97.1 64 16 144/59 (87) 91 06/29/20 15:35 Room Air 06/27/20 06:07 2.0 I & O 07/01/20 07/01/20 07/02/20 15:00 23:00 07:00 Intake Total 720 ml 480 ml 120 ml Balance 720 ml 480 ml 120 ml Current Medications: Meds: Current Medications Medications (Trade) Dose Ordered Sig/Indra Route PRN Reason Start Time Stop Time Status Last Admin Dose Admin Acetaminophen (Tylenol) 650 mg PRN Q6HRS PRN PO MILD PAIN / TEMP > 100.3'F 06/21/20 16:15 Multi-Ingredient Ointment (Analgesic [place]) 1 joesph PRN QID PRN TP MUSCLE PAIN 06/21/20 16:15 Al Hydroxide/Mg Hydroxide (Mylanta Plus Xs) 15 ml PRN AFTMEALHC PRN PO DYSPEPSIA 06/21/20 16:15 Magnesium Hydroxide (Milk Of Magnesia) 2,400 mg PRN QHS PRN PO CONSTIPATION 06/21/20 16:15 Acetaminophen (Tylenol) 500 mg PRN Q6HRS PRN PO pain or fever 06/21/20 16:30 UNV Albuterol Sulfate (Ventolin) 2.5 mg PRN Q4HRS PRN IH FOR ASTHMA 06/21/20 16:30 UNV Amlodipine Besylate (Norvasc) 5 mg DAILY PO 06/22/20 09:00 07/01/20 08:29 Aripiprazole (Abilify) 15 mg DAILY PO 06/22/20 09:00 07/01/20 08:27 Aspirin (Aspirin Enteric Coated) 81 mg DAILY PO 06/22/20 09:00 07/01/20 08:29 Atorvastatin Calcium (Lipitor) 20 mg QHS PO 06/21/20 21:00 07/01/20 19:58 Calcium/Vitamin D (Oscal D 500mg/ 200uts) 1 tab BID PO 06/21/20 21:00 07/01/20 19:59 Vitamin D (Vitamin D3) 50,000 unit WEEKLY PO 06/25/20 09:00 06/25/20 16:42 Clonazepam (KlonoPIN) 0.5 mg PRN BID PRN PO ANXIETY / AGITATION 06/21/20 16:30 07/02/20 06:01 Cyanocobalamin (Vitamin B-12) 1,000 mcg QMONTH IM 07/17/20 09:00 Diclofenac Sodium (Voltaren) 2 joesph QID TP 06/21/20 17:00 07/01/20 20:00 Docusate Sodium (Colace) 100 mg BID PO 06/21/20 21:00 07/01/20 19:57 Furosemide (Lasix) 20 mg DAILY16 PO 06/22/20 16:00 06/27/20 16:15 DC 06/26/20 15:52 Isosorbide Mononitrate (Imdur) 30 mg DAILY08 PO 06/22/20 08:00 07/01/20 08:27 Ketoconazole (Nizoral 2% Shampoo) 1 joesph PRN DAILY PRN TP DANDRUFF 06/21/20 16:30 Levothyroxine Sodium (Synthroid) 75 mcg DAILY06 PO 06/22/20 06:00 07/02/20 05:59 Metoprolol Tartrate (Lopressor) 12.5 mg BID PO 06/21/20 21:00 07/01/20 19:55 Pantoprazole Sodium (Protonix) 40 mg DAILY08 PO 06/22/20 08:00 07/01/20 08:30 Ropinirole HCl (Requip) 0.5 mg HS PO 06/21/20 21:00 07/01/20 19:58 Salsalate (Salsalate) 1,000 mg 2100 PO 06/21/20 21:00 07/01/20 19:55 Salsalate (Salsalate) 1,500 mg 0800 PO 06/22/20 08:00 07/01/20 08:31 Sennosides (Senna) 8.6 mg BID76 PO 06/21/20 18:00 06/23/20 05:00 DC 06/22/20 16:04 Tramadol HCl (Ultram) 50 mg PRN Q6HRS PRN PO PAIN 06/21/20 16:30 06/25/20 01:42 Triamcinolone Acetonide (Kenalog) 1 joesph PRN Q12HR PRN TP ITCHING 06/21/20 16:30 Vitamin A/Vitamin D (Vitamin A & D Ointment) 1 joesph PRN Q1HR PRN TP DRY SKIN / SCALING 06/21/20 16:30 Multi-Ingred Cream/Lotion/Oil/ Oint (Hydrocerin) 1 joesph BID TP 06/21/20 21:00 07/01/20 20:01 Fluoxetine HCl (PROzac) 80 mg DAILY08 PO 06/22/20 08:00 07/01/20 08:27 Non-Formulary Medication (Liraglutide (Saxenda)) 1.8 mg 0800 SQ 06/22/20 08:00 UNV Melatonin (Melatonin) 3 mg HS PO 06/21/20 21:00 07/01/20 19:58 Non-Formulary Medication (Olodaterol HCl (Striverdi Respimat)) 4 gm DAILY08 IH 06/22/20 08:00 UNV Potassium Chloride (Klor-Con) 10 meq TID PO 06/21/20 21:00 06/27/20 16:15 DC 06/27/20 13:12 Quetiapine Fumarate (SEROquel) 300 mg DAILY08 PO 06/22/20 08:00 07/01/20 08:27 Quetiapine Fumarate (SEROquel) 600 mg HS PO 06/21/20 21:00 07/01/20 19:59 Hydroxyzine HCl (Atarax) 25 mg TID PO 06/21/20 21:00 07/01/20 19:56 Albuterol Sulfate (Ventolin Hfa Inhaler) 2 puff PRN Q4HRS PRN INH SHORTNESS OF BREATH 06/21/20 17:15 Divalproex Sodium (Depakote Er) 500 mg QHS PO 06/21/20 21:00 06/24/20 17:35 DC 06/23/20 19:43 Divalproex Sodium (Depakote Er) 500 mg QHS PO 06/22/20 21:00 06/22/20 12:14 DC Sennosides (Senna) 8.6 mg BIDACBL PO 06/23/20 07:30 07/01/20 11:30 Divalproex Sodium (Depakote Er) 750 mg QHS PO 06/24/20 21:00 06/25/20 19:31 DC 06/24/20 21:05 Divalproex Sodium (Depakote Er) 500 mg QHS PO 06/25/20 21:00 07/01/20 19:57 Divalproex Sodium (Depakote Er) 250 mg QHS PO 06/25/20 21:00 07/01/20 19:57 Furosemide (Lasix) 60 mg 1X ONCE PO 06/26/20 21:15 06/26/20 22:10 DC 06/27/20 05:51 Furosemide (Lasix) 40 mg DAILY PO 06/27/20 16:15 07/01/20 08:30 Potassium Chloride (Klor-Con) 20 meq BID PO 06/27/20 21:00 07/01/20 19:56 I have reviewed the current psychotropics carefully including drug interactions. Risk benefit ratio favors no change other than as noted in my dictated progress note. Diagnosis: Problems: (1) Schizoaffective disorder, bipolar type (2) Impulse control disorder, unspecified (3) Anxiety disorder, unspecified (4) Bipolar disorder, current episode depressed, severe, with psychotic features MCIHAEL CLARK MD Jul 02, 2020 08:14
[2020-07-02] MEDS: SENNOSIDES 8.6 MG TABLET PO SCH ×2 (10:00→13:32)
[2020-07-02] MEDS: SALSALATE 500 MG PO SCH ×2 (10:00→20:52)
[2020-07-02] MEDS: FLUoxetine HCL 20 MG CAPSULE PO SCH (10:01)
[2020-07-02] MEDS: PANTOPRAZOLE 40 MG TABLET. PO SCH (10:01)
[2020-07-02] MEDS: ISOSORBIDE MONONITRATE ER 30 MG TAB.ER.24H PO SCH (10:01)
[2020-07-02] MEDS: QUEtiapine 100 MG TABLET. PO SCH ×2 (10:01→20:52)
[2020-07-02] MEDS: hydrOXYzine HCL 25 MG TABLET PO SCH ×3 (10:02→20:53)
[2020-07-02] MEDS: METOPROLOL TART IMMED RELEASE 25 MG TABLET. PO SCH ×2 (10:02→20:54)
[2020-07-02] MEDS: DOCUSATE SODIUM 100 MG CAPSULE PO SCH ×2 (10:02→20:54)
[2020-07-02] MEDS: CALCIUM CARB/VIT D3 500/200 TABLET PO SCH ×2 (10:02→20:54)
[2020-07-02] MEDS: POTASSIUM CHLORIDE 20 MEQ TABLET.ER. PO SCH ×2 (10:03→20:54)
[2020-07-02] MEDS: FUROSEMIDE 40 MG TABLET PO SCH (10:03)
[2020-07-02] MEDS: ASPIRIN ENTERIC COATED 81 MG TABLET.DR. PO SCH (10:03)
[2020-07-02] MEDS: ARIPiprazole 15 MG TABLET PO SCH (10:03)
[2020-07-02] MEDS: amLODIPine BESYLATE 5 MG TABLET PO SCH (10:03)
[2020-07-02] MEDS: DICLOFENAC SODIUM 1% TOPICAL GEL 100GM TUBE. TP SCH ×4 (10:04→20:55)
[2020-07-02] MEDS: MINERAL OIL/PETROLATUM TOPICAL CREAM 113GM JAR. TP SCH ×2 (10:04→21:00)
[2020-07-02 15:52] VITALS: BP 155/76
[2020-07-02] MEDS: CHOLECALCIFEROL (VITAMIN D3) 50,000 UNIT CAPSULE PO SCH (17:30)
[2020-07-02] MEDS: MELATONIN 3 MG TABLET PO SCH (20:51)
[2020-07-02] MEDS: DIVALPROEX ER 250 MG TAB.ER.24H. PO SCH (20:52)
[2020-07-02] MEDS: DIVALPROEX ER 500 MG TAB.ER.24H PO SCH (20:53)
[2020-07-02] MEDS: rOPINIRole 0.5 MG TABLET. PO SCH (20:54)
[2020-07-02] MEDS: ATORVASTATIN CALCIUM 20 MG TABLET PO SCH (20:54)
--- NOTE | 2020-07-02 22:00 | PDOC ---
Exam Note: [place] Note: Please also refer to the separate dictated note~for this date of service dictated separately.~Patient seen individually. Discussed the patient with Nursing staff reviewed the chart.~Reviewed interim history and current functioning. Reviewed vital signs,~Labs/ Radiology~and current medications noted below. Continue current treatment with the changes noted in the dictated addendum note Assessment: Vital Signs/I&O: Vital Signs Date Time Temp Pulse Resp B/P (MAP) Pulse Ox O2 Delivery O2 Flow Rate FiO2 07/02/20 20:54 66 155/76 07/02/20 15:52 97.7 16 92 Room Air 06/27/20 06:07 2.0 I & O 07/01/20 07/01/20 07/02/20 15:00 23:00 07:00 Intake Total 720 ml 480 ml 120 ml Balance 720 ml 480 ml 120 ml Current Medications: Meds: Current Medications Medications (Trade) Dose Ordered Sig/Indra Route PRN Reason Start Time Stop Time Status Last Admin Dose Admin Acetaminophen (Tylenol) 650 mg PRN Q6HRS PRN PO MILD PAIN / TEMP > 100.3'F 06/21/20 16:15 Multi-Ingredient Ointment (Analgesic [place]) 1 joesph PRN QID PRN TP MUSCLE PAIN 06/21/20 16:15 Al Hydroxide/Mg Hydroxide (Mylanta Plus Xs) 15 ml PRN AFTMEALHC PRN PO DYSPEPSIA 06/21/20 16:15 Magnesium Hydroxide (Milk Of Magnesia) 2,400 mg PRN QHS PRN PO CONSTIPATION 06/21/20 16:15 Acetaminophen (Tylenol) 500 mg PRN Q6HRS PRN PO pain or fever 06/21/20 16:30 UNV Albuterol Sulfate (Ventolin) 2.5 mg PRN Q4HRS PRN IH FOR ASTHMA 06/21/20 16:30 UNV Amlodipine Besylate (Norvasc) 5 mg DAILY PO 06/22/20 09:00 07/02/20 10:03 Aripiprazole (Abilify) 15 mg DAILY PO 06/22/20 09:00 07/02/20 10:03 Aspirin (Aspirin Enteric Coated) 81 mg DAILY PO 06/22/20 09:00 07/02/20 10:03 Atorvastatin Calcium (Lipitor) 20 mg QHS PO 06/21/20 21:00 07/02/20 20:54 Calcium/Vitamin D (Oscal D 500mg/ 200uts) 1 tab BID PO 06/21/20 21:00 07/02/20 20:54 Vitamin D (Vitamin D3) 50,000 unit WEEKLY PO 06/25/20 09:00 07/02/20 17:30 Clonazepam (KlonoPIN) 0.5 mg PRN BID PRN PO ANXIETY / AGITATION 06/21/20 16:30 07/02/20 06:01 Cyanocobalamin (Vitamin B-12) 1,000 mcg QMONTH IM 07/17/20 09:00 Diclofenac Sodium (Voltaren) 2 joesph QID TP 06/21/20 17:00 07/02/20 20:55 Docusate Sodium (Colace) 100 mg BID PO 06/21/20 21:00 07/02/20 20:54 Furosemide (Lasix) 20 mg DAILY16 PO 06/22/20 16:00 06/27/20 16:15 DC 06/26/20 15:52 Isosorbide Mononitrate (Imdur) 30 mg DAILY08 PO 06/22/20 08:00 07/02/20 10:01 Ketoconazole (Nizoral 2% Shampoo) 1 joesph PRN DAILY PRN TP DANDRUFF 06/21/20 16:30 Levothyroxine Sodium (Synthroid) 75 mcg DAILY06 PO 06/22/20 06:00 07/02/20 05:59 Metoprolol Tartrate (Lopressor) 12.5 mg BID PO 06/21/20 21:00 07/02/20 20:54 Pantoprazole Sodium (Protonix) 40 mg DAILY08 PO 06/22/20 08:00 07/02/20 10:01 Ropinirole HCl (Requip) 0.5 mg HS PO 06/21/20 21:00 07/02/20 20:54 Salsalate (Salsalate) 1,000 mg 2100 PO 06/21/20 21:00 07/02/20 20:52 Salsalate (Salsalate) 1,500 mg 0800 PO 06/22/20 08:00 07/02/20 10:00 Sennosides (Senna) 8.6 mg BID76 PO 06/21/20 18:00 06/23/20 05:00 DC 06/22/20 16:04 Tramadol HCl (Ultram) 50 mg PRN Q6HRS PRN PO PAIN 06/21/20 16:30 06/25/20 01:42 Triamcinolone Acetonide (Kenalog) 1 joesph PRN Q12HR PRN TP ITCHING 06/21/20 16:30 Vitamin A/Vitamin D (Vitamin A & D Ointment) 1 joesph PRN Q1HR PRN TP DRY SKIN / SCALING 06/21/20 16:30 Multi-Ingred Cream/Lotion/Oil/ Oint (Hydrocerin) 1 joesph BID TP 06/21/20 21:00 07/02/20 10:04 Fluoxetine HCl (PROzac) 80 mg DAILY08 PO 06/22/20 08:00 07/02/20 10:01 Non-Formulary Medication (Liraglutide (Saxenda)) 1.8 mg 0800 SQ 06/22/20 08:00 UNV Melatonin (Melatonin) 3 mg HS PO 06/21/20 21:00 07/02/20 20:51 Non-Formulary Medication (Olodaterol HCl (Striverdi Respimat)) 4 gm DAILY08 IH 06/22/20 08:00 UNV Potassium Chloride (Klor-Con) 10 meq TID PO 06/21/20 21:00 06/27/20 16:15 DC 06/27/20 13:12 Quetiapine Fumarate (SEROquel) 300 mg DAILY08 PO 06/22/20 08:00 07/02/20 10:01 Quetiapine Fumarate (SEROquel) 600 mg HS PO 06/21/20 21:00 07/02/20 20:52 Hydroxyzine HCl (Atarax) 25 mg TID PO 06/21/20 21:00 07/02/20 20:53 Albuterol Sulfate (Ventolin Hfa Inhaler) 2 puff PRN Q4HRS PRN INH SHORTNESS OF BREATH 06/21/20 17:15 Divalproex Sodium (Depakote Er) 500 mg QHS PO 06/21/20 21:00 06/24/20 17:35 DC 06/23/20 19:43 Divalproex Sodium (Depakote Er) 500 mg QHS PO 06/22/20 21:00 06/22/20 12:14 DC Sennosides (Senna) 8.6 mg BIDACBL PO 06/23/20 07:30 07/02/20 13:32 Divalproex Sodium (Depakote Er) 750 mg QHS PO 06/24/20 21:00 06/25/20 19:31 DC 06/24/20 21:05 Divalproex Sodium (Depakote Er) 500 mg QHS PO 06/25/20 21:00 07/02/20 20:53 Divalproex Sodium (Depakote Er) 250 mg QHS PO 06/25/20 21:00 07/02/20 20:52 Furosemide (Lasix) 60 mg 1X ONCE PO 06/26/20 21:15 06/26/20 22:10 DC 06/27/20 05:51 Furosemide (Lasix) 40 mg DAILY PO 06/27/20 16:15 07/02/20 10:03 Potassium Chloride (Klor-Con) 20 meq BID PO 06/27/20 21:00 07/02/20 20:54 I have reviewed the current psychotropics carefully including drug interactions. Risk benefit ratio favors no change other than as noted in my dictated progress note. Diagnosis: Problems: (1) Schizoaffective disorder, bipolar type (2) Impulse control disorder, unspecified (3) Anxiety disorder, unspecified (4) Bipolar disorder, current episode depressed, severe, with psychotic features MICHAEL CLARK MD Jul 02, 2020 22:00
[2020-07-03] MEDS: clonazePAM 0.5 MG TABLET PO PRN ×2 (05:17→17:48)
[2020-07-03] MEDS: LEVOTHYROXINE 75 MCG TABLET PO SCH (05:17)
[2020-07-03 06:33] VITALS: BP 139/63
[2020-07-03] MEDS: NON FORMULARY ITEM (Olodaterol HCl (Striverdi Respimat) 4 GM) IH SCH (08:00)
[2020-07-03] MEDS: LIRAGLUTIDE 1.8 MG SQ SCH (08:00)
[2020-07-03] MEDS: ARIPiprazole 15 MG TABLET PO SCH (08:05)
[2020-07-03] MEDS: QUEtiapine 100 MG TABLET. PO SCH ×2 (08:05→19:52)
[2020-07-03] MEDS: CALCIUM CARB/VIT D3 500/200 TABLET PO SCH ×2 (08:06→19:56)
[2020-07-03] MEDS: ISOSORBIDE MONONITRATE ER 30 MG TAB.ER.24H PO SCH (08:06)
[2020-07-03] MEDS: PANTOPRAZOLE 40 MG TABLET. PO SCH (08:06)
[2020-07-03] MEDS: FLUoxetine HCL 20 MG CAPSULE PO SCH (08:06)
[2020-07-03] MEDS: POTASSIUM CHLORIDE 20 MEQ TABLET.ER. PO SCH ×2 (08:06→19:55)
[2020-07-03] MEDS: hydrOXYzine HCL 25 MG TABLET PO SCH ×3 (08:06→19:52)
[2020-07-03] MEDS: ASPIRIN ENTERIC COATED 81 MG TABLET.DR. PO SCH (08:07)
[2020-07-03] MEDS: amLODIPine BESYLATE 5 MG TABLET PO SCH (08:07)
[2020-07-03] MEDS: SENNOSIDES 8.6 MG TABLET PO SCH ×2 (08:07→13:30)
[2020-07-03] MEDS: METOPROLOL TART IMMED RELEASE 25 MG TABLET. PO SCH ×2 (08:08→19:54)
[2020-07-03] MEDS: FUROSEMIDE 40 MG TABLET PO SCH (08:08)
[2020-07-03] MEDS: SALSALATE 500 MG PO SCH ×2 (08:09→19:53)
[2020-07-03] MEDS: DOCUSATE SODIUM 100 MG CAPSULE PO SCH ×2 (09:07→19:52)
[2020-07-03] MEDS: MINERAL OIL/PETROLATUM TOPICAL CREAM 113GM JAR. TP SCH ×2 (09:08→20:59)
[2020-07-03] MEDS: DICLOFENAC SODIUM 1% TOPICAL GEL 100GM TUBE. TP SCH ×4 (09:08→19:56)
[2020-07-03 15:21] VITALS: BP 170/71
[2020-07-03] MEDS: MELATONIN 3 MG TABLET PO SCH (19:52)
[2020-07-03] MEDS: DIVALPROEX ER 500 MG TAB.ER.24H PO SCH (19:55)
[2020-07-03] MEDS: DIVALPROEX ER 250 MG TAB.ER.24H. PO SCH (19:55)
[2020-07-03] MEDS: rOPINIRole 0.5 MG TABLET. PO SCH (19:55)
[2020-07-03] MEDS: ATORVASTATIN CALCIUM 20 MG TABLET PO SCH (19:55)
--- NOTE | 2020-07-03 21:56 | PDOC ---
Exam Note: [place] Note: Please also refer to the separate dictated note~for this date of service dictated separately.~Patient seen individually. Discussed the patient with Nursing staff reviewed the chart.~Reviewed interim history and current functioning. Reviewed vital signs,~Labs/ Radiology~and current medications noted below. Continue current treatment with the changes noted in the dictated addendum note Assessment: Vital Signs/I&O: Vital Signs Date Time Temp Pulse Resp B/P (MAP) Pulse Ox O2 Delivery O2 Flow Rate FiO2 07/03/20 19:54 64 170/71 07/03/20 15:21 98.6 20 91 07/03/20 06:33 Room Air I & O 07/02/20 07/02/20 07/03/20 15:00 23:00 07:00 Intake Total 680 ml 320 ml Balance 680 ml 320 ml Current Medications: Meds: Current Medications Medications (Trade) Dose Ordered Sig/Indra Route PRN Reason Start Time Stop Time Status Last Admin Dose Admin Acetaminophen (Tylenol) 650 mg PRN Q6HRS PRN PO MILD PAIN / TEMP > 100.3'F 06/21/20 16:15 Multi-Ingredient Ointment (Analgesic [place]) 1 joesph PRN QID PRN TP MUSCLE PAIN 06/21/20 16:15 Al Hydroxide/Mg Hydroxide (Mylanta Plus Xs) 15 ml PRN AFTMEALHC PRN PO DYSPEPSIA 06/21/20 16:15 Magnesium Hydroxide (Milk Of Magnesia) 2,400 mg PRN QHS PRN PO CONSTIPATION 06/21/20 16:15 Acetaminophen (Tylenol) 500 mg PRN Q6HRS PRN PO pain or fever 06/21/20 16:30 UNV Albuterol Sulfate (Ventolin) 2.5 mg PRN Q4HRS PRN IH FOR ASTHMA 06/21/20 16:30 UNV Amlodipine Besylate (Norvasc) 5 mg DAILY PO 06/22/20 09:00 07/03/20 08:07 Aripiprazole (Abilify) 15 mg DAILY PO 06/22/20 09:00 07/03/20 08:05 Aspirin (Aspirin Enteric Coated) 81 mg DAILY PO 06/22/20 09:00 07/03/20 08:07 Atorvastatin Calcium (Lipitor) 20 mg QHS PO 06/21/20 21:00 07/03/20 19:55 Calcium/Vitamin D (Oscal D 500mg/ 200uts) 1 tab BID PO 06/21/20 21:00 07/03/20 19:56 Vitamin D (Vitamin D3) 50,000 unit WEEKLY PO 06/25/20 09:00 07/02/20 17:30 Clonazepam (KlonoPIN) 0.5 mg PRN BID PRN PO ANXIETY / AGITATION 06/21/20 16:30 07/03/20 17:48 Cyanocobalamin (Vitamin B-12) 1,000 mcg QMONTH IM 07/17/20 09:00 Diclofenac Sodium (Voltaren) 2 joesph QID TP 06/21/20 17:00 07/03/20 19:56 Docusate Sodium (Colace) 100 mg BID PO 06/21/20 21:00 07/03/20 19:52 Furosemide (Lasix) 20 mg DAILY16 PO 06/22/20 16:00 06/27/20 16:15 DC 06/26/20 15:52 Isosorbide Mononitrate (Imdur) 30 mg DAILY08 PO 06/22/20 08:00 07/03/20 08:06 Ketoconazole (Nizoral 2% Shampoo) 1 joesph PRN DAILY PRN TP DANDRUFF 06/21/20 16:30 Levothyroxine Sodium (Synthroid) 75 mcg DAILY06 PO 06/22/20 06:00 07/03/20 05:17 Metoprolol Tartrate (Lopressor) 12.5 mg BID PO 06/21/20 21:00 07/03/20 19:54 Pantoprazole Sodium (Protonix) 40 mg DAILY08 PO 06/22/20 08:00 07/03/20 08:06 Ropinirole HCl (Requip) 0.5 mg HS PO 06/21/20 21:00 07/03/20 19:55 Salsalate (Salsalate) 1,000 mg 2100 PO 06/21/20 21:00 07/03/20 19:53 Salsalate (Salsalate) 1,500 mg 0800 PO 06/22/20 08:00 07/03/20 08:09 Sennosides (Senna) 8.6 mg BID76 PO 06/21/20 18:00 06/23/20 05:00 DC 06/22/20 16:04 Tramadol HCl (Ultram) 50 mg PRN Q6HRS PRN PO MOD-SEV PAIN 06/21/20 16:30 06/25/20 01:42 Triamcinolone Acetonide (Kenalog) 1 joesph PRN Q12HR PRN TP ITCHING 06/21/20 16:30 Vitamin A/Vitamin D (Vitamin A & D Ointment) 1 joesph PRN Q1HR PRN TP DRY SKIN / SCALING 06/21/20 16:30 Multi-Ingred Cream/Lotion/Oil/ Oint (Hydrocerin) 1 joesph BID TP 06/21/20 21:00 07/03/20 09:08 Fluoxetine HCl (PROzac) 80 mg DAILY08 PO 06/22/20 08:00 07/03/20 08:06 Non-Formulary Medication (Liraglutide (Saxenda)) 1.8 mg 0800 SQ 06/22/20 08:00 UNV Melatonin (Melatonin) 3 mg HS PO 06/21/20 21:00 07/03/20 19:52 Non-Formulary Medication (Olodaterol HCl (Striverdi Respimat)) 4 gm DAILY08 IH 06/22/20 08:00 UNV Potassium Chloride (Klor-Con) 10 meq TID PO 06/21/20 21:00 06/27/20 16:15 DC 06/27/20 13:12 Quetiapine Fumarate (SEROquel) 300 mg DAILY08 PO 06/22/20 08:00 07/03/20 08:05 Quetiapine Fumarate (SEROquel) 600 mg HS PO 06/21/20 21:00 07/03/20 19:52 Hydroxyzine HCl (Atarax) 25 mg TID PO 06/21/20 21:00 07/03/20 19:52 Albuterol Sulfate (Ventolin Hfa Inhaler) 2 puff PRN Q4HRS PRN INH SHORTNESS OF BREATH 06/21/20 17:15 Divalproex Sodium (Depakote Er) 500 mg QHS PO 06/21/20 21:00 06/24/20 17:35 DC 06/23/20 19:43 Divalproex Sodium (Depakote Er) 500 mg QHS PO 06/22/20 21:00 06/22/20 12:14 DC Sennosides (Senna) 8.6 mg BIDACBL PO 06/23/20 07:30 07/03/20 13:30 Divalproex Sodium (Depakote Er) 750 mg QHS PO 06/24/20 21:00 06/25/20 19:31 DC 06/24/20 21:05 Divalproex Sodium (Depakote Er) 500 mg QHS PO 06/25/20 21:00 07/03/20 19:55 Divalproex Sodium (Depakote Er) 250 mg QHS PO 06/25/20 21:00 07/03/20 19:55 Furosemide (Lasix) 60 mg 1X ONCE PO 06/26/20 21:15 06/26/20 22:10 DC 06/27/20 05:51 Furosemide (Lasix) 40 mg DAILY PO 06/27/20 16:15 07/03/20 08:08 Potassium Chloride (Klor-Con) 20 meq BID PO 06/27/20 21:00 07/03/20 19:55 I have reviewed the current psychotropics carefully including drug interactions. Risk benefit ratio favors no change other than as noted in my dictated progress note. Diagnosis: Problems: (1) Schizoaffective disorder, bipolar type (2) Impulse control disorder, unspecified (3) Anxiety disorder, unspecified (4) Bipolar disorder, current episode depressed, severe, with psychotic features MICHAEL CLARK MD Jul 03, 2020 21:56
[2020-07-04] MEDS: LEVOTHYROXINE 75 MCG TABLET PO SCH (05:21)
[2020-07-04] MEDS: clonazePAM 0.5 MG TABLET PO PRN ×2 (05:22→18:36)
[2020-07-04 05:55] VITALS: BP 150/80
--- NOTE | 2020-07-04 06:46 | PDOC ---
Exam Note: [place] Note: This note is a late entry for 07/02/2020 covers elements not covered in my initial note. Subjective: The patient was seen individually in the evening of 07/02/2020 with Freya WOMACK, discussed and reviewed the chart. The patient slept 7 hours previous night. I met with her at length in her room. Review of Systems: Ambulation impaired in wheelchair. No CV, , eye system symptoms on review. Mental Status Exam: The patient is oriented to herself. [facility] We will defer to social service staff. Speech coherent. Abstraction fair. Computation impaired. Language function intact. Mood and affect anxious. She obsesses about it and some of this is understandable. Laboratory Data: Reviewed. Impression: Schizoaffective disorder, bipolar type, mixed with psychotic feat ures in partial remission. Anxiety disorder unspecified. Impulse control disorder unspecified. Plan: As mentioned above. Assessment: Vital Signs/I&O: Vital Signs Date Time Temp Pulse Resp B/P (MAP) Pulse Ox O2 Delivery O2 Flow Rate FiO2 07/04/20 05:55 97.8 64 20 150/80 (103) 93 Room Air I & O 07/03/20 07/03/20 07/04/20 15:00 23:00 07:00 Intake Total 720 ml 120 ml Balance 720 ml 120 ml Current Medications: Meds: Current Medications Medications (Trade) Dose Ordered Sig/Indra Route PRN Reason Start Time Stop Time Status Last Admin Dose Admin Acetaminophen (Tylenol) 650 mg PRN Q6HRS PRN PO MILD PAIN / TEMP > 100.3'F 06/21/20 16:15 Multi-Ingredient Ointment (Analgesic [place]) 1 joesph PRN QID PRN TP MUSCLE PAIN 06/21/20 16:15 Al Hydroxide/Mg Hydroxide (Mylanta Plus Xs) 15 ml PRN AFTMEALHC PRN PO DYSPEPSIA 06/21/20 16:15 Magnesium Hydroxide (Milk Of Magnesia) 2,400 mg PRN QHS PRN PO CONSTIPATION 06/21/20 16:15 Acetaminophen (Tylenol) 500 mg PRN Q6HRS PRN PO pain or fever 06/21/20 16:30 UNV Albuterol Sulfate (Ventolin) 2.5 mg PRN Q4HRS PRN IH FOR ASTHMA 06/21/20 16:30 UNV Amlodipine Besylate (Norvasc) 5 mg DAILY PO 06/22/20 09:00 07/03/20 08:07 Aripiprazole (Abilify) 15 mg DAILY PO 06/22/20 09:00 07/03/20 08:05 Aspirin (Aspirin Enteric Coated) 81 mg DAILY PO 06/22/20 09:00 07/03/20 08:07 Atorvastatin Calcium (Lipitor) 20 mg QHS PO 06/21/20 21:00 07/03/20 19:55 Calcium/Vitamin D (Oscal D 500mg/ 200uts) 1 tab BID PO 06/21/20 21:00 07/03/20 19:56 Vitamin D (Vitamin D3) 50,000 unit WEEKLY PO 06/25/20 09:00 07/02/20 17:30 Clonazepam (KlonoPIN) 0.5 mg PRN BID PRN PO ANXIETY / AGITATION 06/21/20 16:30 07/04/20 05:22 Cyanocobalamin (Vitamin B-12) 1,000 mcg QMONTH IM 07/17/20 09:00 Diclofenac Sodium (Voltaren) 2 joesph QID TP 06/21/20 17:00 07/03/20 19:56 Docusate Sodium (Colace) 100 mg BID PO 06/21/20 21:00 07/03/20 19:52 Furosemide (Lasix) 20 mg DAILY16 PO 06/22/20 16:00 06/27/20 16:15 DC 06/26/20 15:52 Isosorbide Mononitrate (Imdur) 30 mg DAILY08 PO 06/22/20 08:00 07/03/20 08:06 Ketoconazole (Nizoral 2% Shampoo) 1 joesph PRN DAILY PRN TP DANDRUFF 06/21/20 16:30 Levothyroxine Sodium (Synthroid) 75 mcg DAILY06 PO 06/22/20 06:00 07/04/20 05:21 Metoprolol Tartrate (Lopressor) 12.5 mg BID PO 06/21/20 21:00 07/03/20 19:54 Pantoprazole Sodium (Protonix) 40 mg DAILY08 PO 06/22/20 08:00 07/03/20 08:06 Ropinirole HCl (Requip) 0.5 mg HS PO 06/21/20 21:00 07/03/20 19:55 Salsalate (Salsalate) 1,000 mg 2100 PO 06/21/20 21:00 07/03/20 19:53 Salsalate (Salsalate) 1,500 mg 0800 PO 06/22/20 08:00 07/03/20 08:09 Sennosides (Senna) 8.6 mg BID76 PO 06/21/20 18:00 06/23/20 05:00 DC 06/22/20 16:04 Tramadol HCl (Ultram) 50 mg PRN Q6HRS PRN PO MOD-SEV PAIN 06/21/20 16:30 06/25/20 01:42 Triamcinolone Acetonide (Kenalog) 1 joesph PRN Q12HR PRN TP ITCHING 06/21/20 16:30 Vitamin A/Vitamin D (Vitamin A & D Ointment) 1 joesph PRN Q1HR PRN TP DRY SKIN / SCALING 06/21/20 16:30 Multi-Ingred Cream/Lotion/Oil/ Oint (Hydrocerin) 1 joesph BID TP 06/21/20 21:00 07/03/20 09:08 Fluoxetine HCl (PROzac) 80 mg DAILY08 PO 06/22/20 08:00 07/03/20 08:06 Non-Formulary Medication (Liraglutide (Saxenda)) 1.8 mg 0800 SQ 06/22/20 08:00 UNV Melatonin (Melatonin) 3 mg HS PO 06/21/20 21:00 07/03/20 19:52 Non-Formulary Medication (Olodaterol HCl (Striverdi Respimat)) 4 gm DAILY08 IH 06/22/20 08:00 UNV Potassium Chloride (Klor-Con) 10 meq TID PO 06/21/20 21:00 06/27/20 16:15 DC 06/27/20 13:12 Quetiapine Fumarate (SEROquel) 300 mg DAILY08 PO 06/22/20 08:00 07/03/20 08:05 Quetiapine Fumarate (SEROquel) 600 mg HS PO 06/21/20 21:00 07/03/20 19:52 Hydroxyzine HCl (Atarax) 25 mg TID PO 06/21/20 21:00 07/03/20 19:52 Albuterol Sulfate (Ventolin Hfa Inhaler) 2 puff PRN Q4HRS PRN INH SHORTNESS OF BREATH 06/21/20 17:15 Divalproex Sodium (Depakote Er) 500 mg QHS PO 06/21/20 21:00 06/24/20 17:35 DC 06/23/20 19:43 Divalproex Sodium (Depakote Er) 500 mg QHS PO 06/22/20 21:00 06/22/20 12:14 DC Sennosides (Senna) 8.6 mg BIDACBL PO 06/23/20 07:30 07/03/20 13:30 Divalproex Sodium (Depakote Er) 750 mg QHS PO 06/24/20 21:00 06/25/20 19:31 DC 06/24/20 21:05 Divalproex Sodium (Depakote Er) 500 mg QHS PO 06/25/20 21:00 07/03/20 19:55 Divalproex Sodium (Depakote Er) 250 mg QHS PO 06/25/20 21:00 07/03/20 19:55 Furosemide (Lasix) 60 mg 1X ONCE PO 06/26/20 21:15 06/26/20 22:10 DC 06/27/20 05:51 Furosemide (Lasix) 40 mg DAILY PO 06/27/20 16:15 07/03/20 08:08 Potassium Chloride (Klor-Con) 20 meq BID PO 06/27/20 21:00 07/03/20 19:55 I have reviewed the current psychotropics carefully including drug interactions. Risk benefit ratio favors no change other than as noted in my dictated progress note. Diagnosis: Problems: (1) Schizoaffective disorder, bipolar type (2) Impulse control disorder, unspecified (3) Anxiety disorder, unspecified (4) Bipolar disorder, current episode depressed, severe, with psychotic features MICHAEL CLARK MD Jul 04, 2020 06:46
--- NOTE | 2020-07-04 07:28 | PDOC ---
Exam Note: [place] Note: This note is a late entry for 07/03/2020 covers elements not covered in my initial note. Subjective: The patient was seen individually in the evening of 07/03/2020 with Freya WOMACK, discussed and reviewed the chart. The patient slept 4-3/4 hours previous night. I met with her in her room. She is anxious, restless, tearful, [facility] and she will check with her social service staff in the morning. Review of Systems: Ambulation impaired in wheelchair. No CV, , eye system symptoms on review. Mental Status Exam: The patient is oriented to herself. Speech coherent. Abstraction fair. Computation impaired. Language function intact. Mood and affect anxious. Laboratory Data: Reviewed. Impression: Schizoaffective disorder, bipolar type, mixed with psychotic features in partial remission. Anxiety disorder unspecified. Impulse control disorder unspecified. Plan: No change from initial note. Assessment: Vital Signs/I&O: Vital Signs Date Time Temp Pulse Resp B/P (MAP) Pulse Ox O2 Delivery O2 Flow Rate FiO2 07/04/20 05:55 97.8 64 20 150/80 (103) 93 Room Air I & O 07/03/20 07/03/20 07/04/20 15:00 23:00 07:00 Intake Total 720 ml 120 ml Balance 720 ml 120 ml Current Medications: Meds: Current Medications Medications (Trade) Dose Ordered Sig/Indra Route PRN Reason Start Time Stop Time Status Last Admin Dose Admin Acetaminophen (Tylenol) 650 mg PRN Q6HRS PRN PO MILD PAIN / TEMP > 100.3'F 06/21/20 16:15 Multi-Ingredient Ointment (Analgesic [place]) 1 joesph PRN QID PRN TP MUSCLE PAIN 06/21/20 16:15 Al Hydroxide/Mg Hydroxide (Mylanta Plus Xs) 15 ml PRN AFTMEALHC PRN PO DYSPEPSIA 06/21/20 16:15 Magnesium Hydroxide (Milk Of Magnesia) 2,400 mg PRN QHS PRN PO CONSTIPATION 06/21/20 16:15 Acetaminophen (Tylenol) 500 mg PRN Q6HRS PRN PO pain or fever 06/21/20 16:30 UNV Albuterol Sulfate (Ventolin) 2.5 mg PRN Q4HRS PRN IH FOR ASTHMA 06/21/20 16:30 UNV Amlodipine Besylate (Norvasc) 5 mg DAILY PO 06/22/20 09:00 07/03/20 08:07 Aripiprazole (Abilify) 15 mg DAILY PO 06/22/20 09:00 07/03/20 08:05 Aspirin (Aspirin Enteric Coated) 81 mg DAILY PO 06/22/20 09:00 07/03/20 08:07 Atorvastatin Calcium (Lipitor) 20 mg QHS PO 06/21/20 21:00 07/03/20 19:55 Calcium/Vitamin D (Oscal D 500mg/ 200uts) 1 tab BID PO 06/21/20 21:00 07/03/20 19:56 Vitamin D (Vitamin D3) 50,000 unit WEEKLY PO 06/25/20 09:00 07/02/20 17:30 Clonazepam (KlonoPIN) 0.5 mg PRN BID PRN PO ANXIETY / AGITATION 06/21/20 16:30 07/04/20 05:22 Cyanocobalamin (Vitamin B-12) 1,000 mcg QMONTH IM 07/17/20 09:00 Diclofenac Sodium (Voltaren) 2 joesph QID TP 06/21/20 17:00 07/03/20 19:56 Docusate Sodium (Colace) 100 mg BID PO 06/21/20 21:00 07/03/20 19:52 Furosemide (Lasix) 20 mg DAILY16 PO 06/22/20 16:00 06/27/20 16:15 DC 06/26/20 15:52 Isosorbide Mononitrate (Imdur) 30 mg DAILY08 PO 06/22/20 08:00 07/03/20 08:06 Ketoconazole (Nizoral 2% Shampoo) 1 joesph PRN DAILY PRN TP DANDRUFF 06/21/20 16:30 Levothyroxine Sodium (Synthroid) 75 mcg DAILY06 PO 06/22/20 06:00 07/04/20 05:21 Metoprolol Tartrate (Lopressor) 12.5 mg BID PO 06/21/20 21:00 07/03/20 19:54 Pantoprazole Sodium (Protonix) 40 mg DAILY08 PO 06/22/20 08:00 07/03/20 08:06 Ropinirole HCl (Requip) 0.5 mg HS PO 06/21/20 21:00 07/03/20 19:55 Salsalate (Salsalate) 1,000 mg 2100 PO 06/21/20 21:00 07/03/20 19:53 Salsalate (Salsalate) 1,500 mg 0800 PO 06/22/20 08:00 07/03/20 08:09 Sennosides (Senna) 8.6 mg BID76 PO 06/21/20 18:00 06/23/20 05:00 DC 06/22/20 16:04 Tramadol HCl (Ultram) 50 mg PRN Q6HRS PRN PO MOD-SEV PAIN 06/21/20 16:30 06/25/20 01:42 Triamcinolone Acetonide (Kenalog) 1 joesph PRN Q12HR PRN TP ITCHING 06/21/20 16:30 Vitamin A/Vitamin D (Vitamin A & D Ointment) 1 joesph PRN Q1HR PRN TP DRY SKIN / SCALING 06/21/20 16:30 Multi-Ingred Cream/Lotion/Oil/ Oint (Hydrocerin) 1 joesph BID TP 06/21/20 21:00 07/03/20 09:08 Fluoxetine HCl (PROzac) 80 mg DAILY08 PO 06/22/20 08:00 07/03/20 08:06 Non-Formulary Medication (Liraglutide (Saxenda)) 1.8 mg 0800 SQ 06/22/20 08:00 UNV Melatonin (Melatonin) 3 mg HS PO 06/21/20 21:00 07/03/20 19:52 Non-Formulary Medication (Olodaterol HCl (Striverdi Respimat)) 4 gm DAILY08 IH 06/22/20 08:00 UNV Potassium Chloride (Klor-Con) 10 meq TID PO 06/21/20 21:00 06/27/20 16:15 DC 06/27/20 13:12 Quetiapine Fumarate (SEROquel) 300 mg DAILY08 PO 06/22/20 08:00 07/03/20 08:05 Quetiapine Fumarate (SEROquel) 600 mg HS PO 06/21/20 21:00 07/03/20 19:52 Hydroxyzine HCl (Atarax) 25 mg TID PO 06/21/20 21:00 07/03/20 19:52 Albuterol Sulfate (Ventolin Hfa Inhaler) 2 puff PRN Q4HRS PRN INH SHORTNESS OF BREATH 06/21/20 17:15 Divalproex Sodium (Depakote Er) 500 mg QHS PO 06/21/20 21:00 06/24/20 17:35 DC 06/23/20 19:43 Divalproex Sodium (Depakote Er) 500 mg QHS PO 06/22/20 21:00 06/22/20 12:14 DC Sennosides (Senna) 8.6 mg BIDACBL PO 06/23/20 07:30 07/03/20 13:30 Divalproex Sodium (Depakote Er) 750 mg QHS PO 06/24/20 21:00 06/25/20 19:31 DC 06/24/20 21:05 Divalproex Sodium (Depakote Er) 500 mg QHS PO 06/25/20 21:00 07/03/20 19:55 Divalproex Sodium (Depakote Er) 250 mg QHS PO 06/25/20 21:00 07/03/20 19:55 Furosemide (Lasix) 60 mg 1X ONCE PO 06/26/20 21:15 06/26/20 22:10 DC 06/27/20 05:51 Furosemide (Lasix) 40 mg DAILY PO 06/27/20 16:15 07/03/20 08:08 Potassium Chloride (Klor-Con) 20 meq BID PO 06/27/20 21:00 07/03/20 19:55 I have reviewed the current psychotropics carefully including drug interactions. Risk benefit ratio favors no change other than as noted in my dictated progress note. Diagnosis: Problems: (1) Schizoaffective disorder, bipolar type (2) Impulse control disorder, unspecified (3) Anxiety disorder, unspecified (4) Bipolar disorder, current episode depressed, severe, with psychotic features MICHAEL CLARK MD Jul 04, 2020 07:28
[2020-07-04] MEDS: NON FORMULARY ITEM (Olodaterol HCl (Striverdi Respimat) 4 GM) IH SCH (08:00)
[2020-07-04] MEDS: LIRAGLUTIDE 1.8 MG SQ SCH (08:00)
[2020-07-04] MEDS: ISOSORBIDE MONONITRATE ER 30 MG TAB.ER.24H PO SCH (08:54)
[2020-07-04] MEDS: PANTOPRAZOLE 40 MG TABLET. PO SCH (08:54)
[2020-07-04] MEDS: SENNOSIDES 8.6 MG TABLET PO SCH ×2 (08:55→13:53)
[2020-07-04] MEDS: SALSALATE 500 MG PO SCH ×2 (08:55→21:42)
[2020-07-04] MEDS: QUEtiapine 100 MG TABLET. PO SCH ×2 (08:56→21:42)
[2020-07-04] MEDS: ARIPiprazole 15 MG TABLET PO SCH (08:56)
[2020-07-04] MEDS: FLUoxetine HCL 20 MG CAPSULE PO SCH (08:56)
[2020-07-04] MEDS: hydrOXYzine HCL 25 MG TABLET PO SCH ×3 (08:57→21:44)
[2020-07-04] MEDS: POTASSIUM CHLORIDE 20 MEQ TABLET.ER. PO SCH ×2 (08:57→21:45)
[2020-07-04] MEDS: FUROSEMIDE 40 MG TABLET PO SCH (08:57)
[2020-07-04] MEDS: ASPIRIN ENTERIC COATED 81 MG TABLET.DR. PO SCH (08:57)
[2020-07-04] MEDS: METOPROLOL TART IMMED RELEASE 25 MG TABLET. PO SCH ×2 (08:57→21:44)
[2020-07-04] MEDS: CALCIUM CARB/VIT D3 500/200 TABLET PO SCH ×2 (08:57→21:43)
[2020-07-04] MEDS: DOCUSATE SODIUM 100 MG CAPSULE PO SCH ×2 (08:57→21:42)
[2020-07-04] MEDS: amLODIPine BESYLATE 5 MG TABLET PO SCH (08:57)
[2020-07-04] MEDS: DICLOFENAC SODIUM 1% TOPICAL GEL 100GM TUBE. TP SCH ×5 (08:58→21:00)
[2020-07-04] MEDS: MINERAL OIL/PETROLATUM TOPICAL CREAM 113GM JAR. TP SCH ×2 (08:58→21:00)
[2020-07-04 16:03] VITALS: BP 130/57
[2020-07-04] MEDS: ATORVASTATIN CALCIUM 20 MG TABLET PO SCH (21:43)
[2020-07-04] MEDS: DIVALPROEX ER 250 MG TAB.ER.24H. PO SCH (21:43)
[2020-07-04] MEDS: DIVALPROEX ER 500 MG TAB.ER.24H PO SCH (21:43)
[2020-07-04] MEDS: rOPINIRole 0.5 MG TABLET. PO SCH (21:43)
[2020-07-04] MEDS: MELATONIN 3 MG TABLET PO SCH (21:43)
--- NOTE | 2020-07-04 22:03 | PDOC ---
Exam Note: [place] Note: Please also refer to the separate dictated note~for this date of service dictated separately.~Patient seen individually. Discussed the patient with Nursing staff reviewed the chart.~Reviewed interim history and current functioning. Reviewed vital signs,~Labs/ Radiology~and current medications noted below. Continue current treatment with the changes noted in the dictated addendum note Assessment: Vital Signs/I&O: Vital Signs Date Time Temp Pulse Resp B/P (MAP) Pulse Ox O2 Delivery O2 Flow Rate FiO2 07/04/20 21:44 71 130/57 07/04/20 16:03 96.6 20 92 07/04/20 05:55 Room Air I & O 07/03/20 07/03/20 07/04/20 15:00 23:00 07:00 Intake Total 720 ml 120 ml Balance 720 ml 120 ml Current Medications: Meds: Current Medications Medications (Trade) Dose Ordered Sig/Indra Route PRN Reason Start Time Stop Time Status Last Admin Dose Admin Acetaminophen (Tylenol) 650 mg PRN Q6HRS PRN PO MILD PAIN / TEMP > 100.3'F 06/21/20 16:15 Multi-Ingredient Ointment (Analgesic [place]) 1 joesph PRN QID PRN TP MUSCLE PAIN 06/21/20 16:15 Al Hydroxide/Mg Hydroxide (Mylanta Plus Xs) 15 ml PRN AFTMEALHC PRN PO DYSPEPSIA 06/21/20 16:15 Magnesium Hydroxide (Milk Of Magnesia) 2,400 mg PRN QHS PRN PO CONSTIPATION 06/21/20 16:15 Acetaminophen (Tylenol) 500 mg PRN Q6HRS PRN PO pain or fever 06/21/20 16:30 UNV Albuterol Sulfate (Ventolin) 2.5 mg PRN Q4HRS PRN IH FOR ASTHMA 06/21/20 16:30 UNV Amlodipine Besylate (Norvasc) 5 mg DAILY PO 06/22/20 09:00 07/04/20 08:57 Aripiprazole (Abilify) 15 mg DAILY PO 06/22/20 09:00 07/04/20 08:56 Aspirin (Aspirin Enteric Coated) 81 mg DAILY PO 06/22/20 09:00 07/04/20 08:57 Atorvastatin Calcium (Lipitor) 20 mg QHS PO 06/21/20 21:00 07/04/20 21:43 Calcium/Vitamin D (Oscal D 500mg/ 200uts) 1 tab BID PO 06/21/20 21:00 07/04/20 21:43 Vitamin D (Vitamin D3) 50,000 unit WEEKLY PO 06/25/20 09:00 07/02/20 17:30 Clonazepam (KlonoPIN) 0.5 mg PRN BID PRN PO ANXIETY / AGITATION 06/21/20 16:30 07/04/20 18:36 Cyanocobalamin (Vitamin B-12) 1,000 mcg QMONTH IM 07/17/20 09:00 Diclofenac Sodium (Voltaren) 2 joesph QID TP 06/21/20 17:00 07/04/20 17:21 Docusate Sodium (Colace) 100 mg BID PO 06/21/20 21:00 07/04/20 21:42 Furosemide (Lasix) 20 mg DAILY16 PO 06/22/20 16:00 06/27/20 16:15 DC 06/26/20 15:52 Isosorbide Mononitrate (Imdur) 30 mg DAILY08 PO 06/22/20 08:00 07/04/20 08:54 Ketoconazole (Nizoral 2% Shampoo) 1 joesph PRN DAILY PRN TP DANDRUFF 06/21/20 16:30 Levothyroxine Sodium (Synthroid) 75 mcg DAILY06 PO 06/22/20 06:00 07/04/20 05:21 Metoprolol Tartrate (Lopressor) 12.5 mg BID PO 06/21/20 21:00 07/04/20 21:44 Pantoprazole Sodium (Protonix) 40 mg DAILY08 PO 06/22/20 08:00 07/04/20 08:54 Ropinirole HCl (Requip) 0.5 mg HS PO 06/21/20 21:00 07/04/20 21:43 Salsalate (Salsalate) 1,000 mg 2100 PO 06/21/20 21:00 07/04/20 21:42 Salsalate (Salsalate) 1,500 mg 0800 PO 06/22/20 08:00 07/04/20 08:55 Sennosides (Senna) 8.6 mg BID76 PO 06/21/20 18:00 06/23/20 05:00 DC 06/22/20 16:04 Tramadol HCl (Ultram) 50 mg PRN Q6HRS PRN PO MOD-SEV PAIN 06/21/20 16:30 06/25/20 01:42 Triamcinolone Acetonide (Kenalog) 1 joesph PRN Q12HR PRN TP ITCHING 06/21/20 16:30 Vitamin A/Vitamin D (Vitamin A & D Ointment) 1 joesph PRN Q1HR PRN TP DRY SKIN / SCALING 06/21/20 16:30 Multi-Ingred Cream/Lotion/Oil/ Oint (Hydrocerin) 1 joesph BID TP 06/21/20 21:00 07/04/20 08:58 Fluoxetine HCl (PROzac) 80 mg DAILY08 PO 06/22/20 08:00 07/04/20 08:56 Non-Formulary Medication (Liraglutide (Saxenda)) 1.8 mg 0800 SQ 06/22/20 08:00 UNV Melatonin (Melatonin) 3 mg HS PO 06/21/20 21:00 07/04/20 21:43 Non-Formulary Medication (Olodaterol HCl (Striverdi Respimat)) 4 gm DAILY08 IH 06/22/20 08:00 UNV Potassium Chloride (Klor-Con) 10 meq TID PO 06/21/20 21:00 06/27/20 16:15 DC 06/27/20 13:12 Quetiapine Fumarate (SEROquel) 300 mg DAILY08 PO 06/22/20 08:00 07/04/20 08:56 Quetiapine Fumarate (SEROquel) 600 mg HS PO 06/21/20 21:00 07/04/20 21:42 Hydroxyzine HCl (Atarax) 25 mg TID PO 06/21/20 21:00 07/04/20 21:44 Albuterol Sulfate (Ventolin Hfa Inhaler) 2 puff PRN Q4HRS PRN INH SHORTNESS OF BREATH 06/21/20 17:15 Divalproex Sodium (Depakote Er) 500 mg QHS PO 06/21/20 21:00 06/24/20 17:35 DC 06/23/20 19:43 Divalproex Sodium (Depakote Er) 500 mg QHS PO 06/22/20 21:00 06/22/20 12:14 DC Sennosides (Senna) 8.6 mg BIDACBL PO 06/23/20 07:30 07/04/20 13:53 Divalproex Sodium (Depakote Er) 750 mg QHS PO 06/24/20 21:00 06/25/20 19:31 DC 06/24/20 21:05 Divalproex Sodium (Depakote Er) 500 mg QHS PO 06/25/20 21:00 07/04/20 21:43 Divalproex Sodium (Depakote Er) 250 mg QHS PO 06/25/20 21:00 07/04/20 21:43 Furosemide (Lasix) 60 mg 1X ONCE PO 06/26/20 21:15 06/26/20 22:10 DC 06/27/20 05:51 Furosemide (Lasix) 40 mg DAILY PO 06/27/20 16:15 07/04/20 08:57 Potassium Chloride (Klor-Con) 20 meq BID PO 06/27/20 21:00 07/04/20 21:45 I have reviewed the current psychotropics carefully including drug interactions. Risk benefit ratio favors no change other than as noted in my dictated progress note. Diagnosis: Problems: (1) Schizoaffective disorder, bipolar type (2) Impulse control disorder, unspecified (3) Anxiety disorder, unspecified (4) Bipolar disorder, current episode depressed, severe, with psychotic features MICHAEL CLARK MD Jul 04, 2020 22:02
[2020-07-05] MEDS ORDERED: ACET325T21 PO (04:53)
[2020-07-05] MEDS ORDERED: MAG-115 PO (04:54)
[2020-07-05] MEDS ORDERED: DIVA250T14 PO (04:54)
[2020-07-05] MEDS ORDERED: FURO40TA4 PO (04:54)
[2020-07-05] MEDS ORDERED: MAGN24003 PO (04:55)
[2020-07-05] MEDS ORDERED: METH57CR17 TP (04:55)
[2020-07-05] MEDS ORDERED: POTA20TA4 PO (04:59)
[2020-07-05] MEDS: LEVOTHYROXINE 75 MCG TABLET PO SCH (05:14)
[2020-07-05] MEDS: clonazePAM 0.5 MG TABLET PO PRN ×2 (05:14→18:00)
--- NOTE | 2020-07-05 05:14 | PN ---
DATE: 07/04/2020 I am seeing this patient for followup regarding her lung cancer diagnosis and recurrent left-sided pleural effusion. SUBJECTIVE: She is comfortable. She denied any dyspnea at rest. She may get a little short winded with exertion. She has been sitting in the wheelchair. She is ambulating without any problems and her room air saturations appears adequate. She is perfusing well. She has a mild nonproductive cough. OBJECTIVE: VITAL SIGNS: Blood pressure this morning is 150/80 mmHg, pulse is 64 and regular, temperature 98.6 degrees Fahrenheit, oxygen saturation 93% on room air. HEENT: Head is without trauma. Pupils are reactive, sclerae are nonicteric. The oropharynx is clear. NECK: Supple. LUNGS: There are diminished breath sounds at both bases, but she is moving air well on the left side. I do not appreciate any rales or rhonchi. HEART: She has distant heart tones. No gallops. ABDOMEN: Soft. EXTREMITIES: Without edema. NEUROLOGIC: Finding focally intact. Speech is fluent. She is calm. I am still trying to track down the cytology of the thoracentesis done about 3 weeks ago. ASSESSMENT: A 64-year-old female with: 1. Schizoaffective disorder. 2. 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 3. Pleural effusion with previous thoracentesis for palliation and diagnostic evaluation. 4. Generalized debilitation. 5. Chronic obstructive pulmonary disease. RECOMMENDATIONS: 1. I am still trying to track down the cytology report. 2. [facility]. She will need placement at this time. 3. Whether or not she will get further treatment or go to hospice depends on what the [facility] system will allow us to do. MALISSA BEAVERS: MALISSA/radha TID: [id number]
--- NOTE | 2020-07-05 05:42 | PN ---
DATE: 07/04/2020 ADDENDUM I did get the report of the cytology from the pleural fluid done by thoracentesis. The cytology was negative for malignant cells. She is doing well at this time and certainly, it could have been a reactive pleural effusion from her thoracoscopy. In any event, we will follow up closely with subsequent x-rays and CT scan. For now, I do not believe the fluid has reaccumulated that much. BOBBY DR: Dana TID: [id number]
[2020-07-05 06:10] VITALS: BP 130/67
[2020-07-05 07:17] LABS: BASO % 1 % (0-3); EOS # 0.3 x10^3/uL (0.0-0.7); EOS % 6 % (0-3); HEMOGLOBIN 11.1 g/dL (12.0-15.5); LYMPH # 0.9 x10^3/uL (1.0-4.8); LYMPH % 19 % (24-48); MEAN CORPUSCULAR HEMOGLOBIN 27 pg (25-35); MEAN CORPUSCULAR HGB CONC 33 g/dL (31-37); MEAN CORPUSCULAR VOLUME 83 fL (79-100); MONO # 0.7 x10^3/uL (0.0-1.1); MONO % 13 % (0-9); NEUT # 3.1 x10^3uL (1.8-7.7); NEUT % 62 % (31-73); PLATELET COUNT 212 x10^3/uL (140-400); RED BLOOD COUNT 4.08 x10^6/uL (3.50-5.40); RED CELL DISTRIBUTION WIDTH 16.2 % (11.5-14.5)
[2020-07-05 07:28] LABS: ALBUMIN/GLOBULIN RATIO 0.9 (1.0-1.7); CALCIUM 9.1 mg/dL (8.5-10.1); CREATININE 0.8 mg/dL (0.6-1.0); GFR 71.8; POTASSIUM 4.4 mmol/L (3.5-5.1); TOTAL BILIRUBIN 0.2 mg/dL (0.2-1.0); TOTAL PROTEIN 6.5 g/dL (6.4-8.2)
[2020-07-05] MEDS: NON FORMULARY ITEM (Olodaterol HCl (Striverdi Respimat) 4 GM) IH SCH (08:00)
[2020-07-05] MEDS: LIRAGLUTIDE 1.8 MG SQ SCH (08:00)
[2020-07-05] MEDS: DOCUSATE SODIUM 100 MG CAPSULE PO SCH ×2 (09:22→20:32)
[2020-07-05] MEDS: PANTOPRAZOLE 40 MG TABLET. PO SCH (09:22)
[2020-07-05] MEDS: ASPIRIN ENTERIC COATED 81 MG TABLET.DR. PO SCH (09:23)
[2020-07-05] MEDS: FUROSEMIDE 40 MG TABLET PO SCH (09:23)
[2020-07-05] MEDS: SALSALATE 500 MG PO SCH ×2 (09:23→20:30)
[2020-07-05] MEDS: ARIPiprazole 15 MG TABLET PO SCH (09:23)
[2020-07-05] MEDS: FLUoxetine HCL 20 MG CAPSULE PO SCH (09:24)
[2020-07-05] MEDS: hydrOXYzine HCL 25 MG TABLET PO SCH ×3 (09:24→20:32)
[2020-07-05] MEDS: amLODIPine BESYLATE 5 MG TABLET PO SCH (09:24)
[2020-07-05] MEDS: QUEtiapine 100 MG TABLET. PO SCH ×2 (09:25→20:32)
[2020-07-05] MEDS: ISOSORBIDE MONONITRATE ER 30 MG TAB.ER.24H PO SCH (09:25)
[2020-07-05] MEDS: SENNOSIDES 8.6 MG TABLET PO SCH ×2 (09:25→13:25)
[2020-07-05] MEDS: CALCIUM CARB/VIT D3 500/200 TABLET PO SCH ×2 (09:25→20:30)
[2020-07-05] MEDS: MINERAL OIL/PETROLATUM TOPICAL CREAM 113GM JAR. TP SCH ×2 (09:26→20:32)
[2020-07-05] MEDS: METOPROLOL TART IMMED RELEASE 25 MG TABLET. PO SCH ×2 (09:26→20:32)
[2020-07-05] MEDS: POTASSIUM CHLORIDE 20 MEQ TABLET.ER. PO SCH ×2 (09:26→20:31)
[2020-07-05] MEDS: DICLOFENAC SODIUM 1% TOPICAL GEL 100GM TUBE. TP SCH ×4 (09:27→20:33)
--- NOTE | 2020-07-05 16:26 | TX PLAN ---
Interdisciplinary Tx Plan Admission Information Jun 21, 2020 at 13:15 Legal Status (on Admission): Voluntary DPOA/Guardian Name: Felix Moscoso Contact Other Contact Name: Emigdio Cantrell Other Contact Verified Code Status: Full Code Allergies: Coded Allergies: chlorpromazine (Verified Allergy, Unknown, 06/07/20) diphenhydramine (Verified Allergy, Unknown, 06/07/20) lisinopril (Verified Allergy, Unknown, 06/07/20) simvastatin (Verified Allergy, Unknown, 06/07/20) Diagnoses Primary Diagnosis: Schizoaffective D/O Reasons for Admission: Delusions, Other Problem in Patient's Words: NA Additional Admission Comments: Pt was re-admitted to [facility] on 06/21 after having a Thoracentesis and 24 hour observation on ICU. Pt is labile and mostly tearful. Previous admission stated pt is paranoid,having multiple times in her head causing an abrasion, anxious and making statements of "I just want to end this" Problems Active Problems: delusional labile mood anxious Inactive Problems: medication management Pt Strengths/Limitations Ability for [place]: Poor Cognitive Functioning/Ability: Fair Communication Skills/Ability: Fair Financial Resources: Fair Insight/Judgement: Poor Intellectual Ability: Fair Physical Health: Poor Social Skills: Fair Stability in Family: Fair Stability in School/Work: Poor Verbal Skills: Fair Discharge Criteria Discharge Criteria: No need for close observ., Adequate arrangements @DC, Improved behavior, Improved mood/thought Special Precautions Fall Risk: Moderate Initial D/C Plan Pt will need placement at discharge. Identified Discharge Needs: Referrals for higher level of care Currently Utilized Resources Currently Utilized Resources/P: [facility] : PCP, Psychiatrist, Counseling, project manager/design manager Identified Problems/Hx/Goals Objectives/Short-Term Goals Short Term Goals: Dec. Anxiety/Panic, Dec. Hallucination/Delus, Dec. Outbursts, Dec. Symp. Depression, Medication Stabilization, Monitor Med Effects, Promote Coping Skill Short Term Goals in Patient's: I just need to get my Fluffy back Interventions/Frequency Staff Interventions/Frequency&: Psychiatrist to assess pt at least 3x per week for medication mgmt. Social Work to assess pt at least 2x per week to identify barriers to care and final discharge planning. Nursing to assess medication effects, behavior modification and completion of 15 minute checks daily. Encourage participation in group activities (if applicable) or 1:1 engagement based off activity dept goals. History Vocational History: Pt was not able to fully work as her psychiatric troubles prevented her from doing so. 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 Pt is paranoid that staff are talking about her, suspicious and tearful. Pt is withdrawn mostly to her room but did attend 5 groups this last week with minimal to moderate participation. Pt is requesting her anxiety medications at 0500 and anxious about leaving. SW has attempted to get pt into the [facility] and was told they did not have any beds. [facility] LUIS would have to call daily to see if they have an opening as one could not be promised. JO[facility] LU[facility] will continue to work on getting pt transferred per her request and the family's request. FROY K[facility]IS[facility] Jul 05, 2020 16:26
[2020-07-05 20:16] VITALS: BP 143/76
[2020-07-05] MEDS: MELATONIN 3 MG TABLET PO SCH (20:31)
[2020-07-05] MEDS: DIVALPROEX ER 250 MG TAB.ER.24H. PO SCH (20:31)
[2020-07-05] MEDS: DIVALPROEX ER 500 MG TAB.ER.24H PO SCH (20:31)
[2020-07-05] MEDS: rOPINIRole 0.5 MG TABLET. PO SCH (20:32)
[2020-07-05] MEDS: ATORVASTATIN CALCIUM 20 MG TABLET PO SCH (20:32)
--- NOTE | 2020-07-05 22:04 | PDOC ---
Exam Note: [place] Note: Please also refer to the separate dictated note~for this date of service dictated separately.~Patient seen individually. Discussed the patient with Nursing staff reviewed the chart.~Reviewed interim history and current functioning. Reviewed vital signs,~Labs/ Radiology~and current medications noted below. Continue current treatment with the changes noted in the dictated addendum note Assessment: Vital Signs/I&O: Vital Signs Date Time Temp Pulse Resp B/P (MAP) Pulse Ox O2 Delivery O2 Flow Rate FiO2 07/05/20 20:32 63 143/76 07/05/20 20:16 97.4 20 95 Room Air I & O 07/04/20 07/04/20 07/05/20 15:00 23:00 07:00 Intake Total 840 ml 220 ml 120 ml Balance 840 ml 220 ml 120 ml Labs: Laboratory Tests Test 07/05/20 07:05 White Blood Count 5.0 x10^3/uL (4.0-11.0) Red Blood Count 4.08 x10^6/uL (3.50-5.40) Hemoglobin 11.1 g/dL (12.0-15.5) L Hematocrit 34.0 % (36.0-47.0) L Mean Corpuscular Volume 83 fL (79-100) Mean Corpuscular Hemoglobin 27 pg (25-35) Mean Corpuscular Hemoglobin Concent 33 g/dL (31-37) Red Cell Distribution Width 16.2 % (11.5-14.5) H Platelet Count 212 x10^3/uL (140-400) Neutrophils (%) (Auto) 62 % (31-73) Lymphocytes (%) (Auto) 19 % (24-48) L Monocytes (%) (Auto) 13 % (0-9) H Eosinophils (%) (Auto) 6 % (0-3) H Basophils (%) (Auto) 1 % (0-3) Neutrophils # (Auto) 3.1 x10^3uL (1.8-7.7) Lymphocytes # (Auto) 0.9 x10^3/uL (1.0-4.8) L Monocytes # (Auto) 0.7 x10^3/uL (0.0-1.1) Eosinophils # (Auto) 0.3 x10^3/uL (0.0-0.7) Basophils # (Auto) 0.0 x10^3/uL (0.0-0.2) Sodium Level 138 mmol/L (136-145) Potassium Level 4.4 mmol/L (3.5-5.1) Chloride Level 102 mmol/L (98-107) Carbon Dioxide Level 29 mmol/L (21-32) Anion Gap 7 (6-14) Blood Urea Nitrogen 17 mg/dL (7-20) Creatinine 0.8 mg/dL (0.6-1.0) Estimated GFR (Cockcroft-Gault) 71.8 BUN/Creatinine Ratio 21 (6-20) H Glucose Level 89 mg/dL (70-99) Calcium Level 9.1 mg/dL (8.5-10.1) Total Bilirubin 0.2 mg/dL (0.2-1.0) Aspartate Amino Transferase (AST) 18 U/L (15-37) Alanine Aminotransferase (ALT) 17 U/L (14-59) Alkaline Phosphatase 81 U/L (46-116) Total Protein 6.5 g/dL (6.4-8.2) Albumin 3.0 g/dL (3.4-5.0) L Albumin/Globulin Ratio 0.9 (1.0-1.7) L Current Medications: Meds: Laboratory Tests Test 07/05/20 07:05 White Blood Count 5.0 x10^3/uL Red Blood Count 4.08 x10^6/uL Hemoglobin 11.1 g/dL Hematocrit 34.0 % Mean Corpuscular Volume 83 fL Mean Corpuscular Hemoglobin 27 pg Mean Corpuscular Hemoglobin Concent 33 g/dL Red Cell Distribution Width 16.2 % Platelet Count 212 x10^3/uL Neutrophils (%) (Auto) 62 % Lymphocytes (%) (Auto) 19 % Monocytes (%) (Auto) 13 % Eosinophils (%) (Auto) 6 % Basophils (%) (Auto) 1 % Neutrophils # (Auto) 3.1 x10^3uL Lymphocytes # (Auto) 0.9 x10^3/uL Monocytes # (Auto) 0.7 x10^3/uL Eosinophils # (Auto) 0.3 x10^3/uL Basophils # (Auto) 0.0 x10^3/uL Sodium Level 138 mmol/L Potassium Level 4.4 mmol/L Chloride Level 102 mmol/L Carbon Dioxide Level 29 mmol/L Anion Gap 7 Blood Urea Nitrogen 17 mg/dL Creatinine 0.8 mg/dL Estimated GFR (Cockcroft-Gault) 71.8 BUN/Creatinine Ratio 21 Glucose Level 89 mg/dL Calcium Level 9.1 mg/dL Total Bilirubin 0.2 mg/dL Aspartate Amino Transf (AST/SGOT) 18 U/L Alanine Aminotransferase (ALT/SGPT) 17 U/L Alkaline Phosphatase 81 U/L Total Protein 6.5 g/dL Albumin 3.0 g/dL Albumin/Globulin Ratio 0.9 Current Medications Medications (Trade) Dose Ordered Sig/Indra Route PRN Reason Start Time Stop Time Status Last Admin Dose Admin Acetaminophen (Tylenol) 650 mg PRN Q6HRS PRN PO MILD PAIN / TEMP > 100.3'F 06/21/20 16:15 Multi-Ingredient Ointment (Analgesic [place]) 1 joesph PRN QID PRN TP MUSCLE PAIN 06/21/20 16:15 Al Hydroxide/Mg Hydroxide (Mylanta Plus Xs) 15 ml PRN AFTMEALHC PRN PO DYSPEPSIA 06/21/20 16:15 Magnesium Hydroxide (Milk Of Magnesia) 2,400 mg PRN QHS PRN PO CONSTIPATION 06/21/20 16:15 Acetaminophen (Tylenol) 500 mg PRN Q6HRS PRN PO pain or fever 06/21/20 16:30 UNV Albuterol Sulfate (Ventolin) 2.5 mg PRN Q4HRS PRN IH FOR ASTHMA 06/21/20 16:30 UNV Amlodipine Besylate (Norvasc) 5 mg DAILY PO 06/22/20 09:00 07/05/20 09:24 Aripiprazole (Abilify) 15 mg DAILY PO 06/22/20 09:00 07/05/20 09:23 Aspirin (Aspirin Enteric Coated) 81 mg DAILY PO 06/22/20 09:00 07/05/20 09:23 Atorvastatin Calcium (Lipitor) 20 mg QHS PO 06/21/20 21:00 07/05/20 20:32 Calcium/Vitamin D (Oscal D 500mg/ 200uts) 1 tab BID PO 06/21/20 21:00 07/05/20 20:30 Vitamin D (Vitamin D3) 50,000 unit WEEKLY PO 06/25/20 09:00 07/02/20 17:30 Clonazepam (KlonoPIN) 0.5 mg PRN BID PRN PO ANXIETY / AGITATION 06/21/20 16:30 07/05/20 18:00 Cyanocobalamin (Vitamin B-12) 1,000 mcg QMONTH IM 07/17/20 09:00 Diclofenac Sodium (Voltaren) 2 joesph QID TP 06/21/20 17:00 07/05/20 13:27 Docusate Sodium (Colace) 100 mg BID PO 06/21/20 21:00 07/05/20 20:32 Furosemide (Lasix) 20 mg DAILY16 PO 06/22/20 16:00 06/27/20 16:15 DC 06/26/20 15:52 Isosorbide Mononitrate (Imdur) 30 mg DAILY08 PO 06/22/20 08:00 07/05/20 09:25 Ketoconazole (Nizoral 2% Shampoo) 1 joesph PRN DAILY PRN TP DANDRUFF 06/21/20 16:30 Levothyroxine Sodium (Synthroid) 75 mcg DAILY06 PO 06/22/20 06:00 07/05/20 05:14 Metoprolol Tartrate (Lopressor) 12.5 mg BID PO 06/21/20 21:00 07/05/20 20:32 Pantoprazole Sodium (Protonix) 40 mg DAILY08 PO 06/22/20 08:00 07/05/20 09:22 Ropinirole HCl (Requip) 0.5 mg HS PO 06/21/20 21:00 07/05/20 20:32 Salsalate (Salsalate) 1,000 mg 2100 PO 06/21/20 21:00 07/05/20 20:30 Salsalate (Salsalate) 1,500 mg 0800 PO 06/22/20 08:00 07/05/20 09:23 Sennosides (Senna) 8.6 mg BID76 PO 06/21/20 18:00 06/23/20 05:00 DC 06/22/20 16:04 Tramadol HCl (Ultram) 50 mg PRN Q6HRS PRN PO MOD-SEV PAIN 06/21/20 16:30 06/25/20 01:42 Triamcinolone Acetonide (Kenalog) 1 joesph PRN Q12HR PRN TP ITCHING 06/21/20 16:30 Vitamin A/Vitamin D (Vitamin A & D Ointment) 1 joesph PRN Q1HR PRN TP DRY SKIN / SCALING 06/21/20 16:30 Multi-Ingred Cream/Lotion/Oil/ Oint (Hydrocerin) 1 joesph BID TP 06/21/20 21:00 07/05/20 09:26 Fluoxetine HCl (PROzac) 80 mg DAILY08 PO 06/22/20 08:00 07/05/20 09:24 Non-Formulary Medication (Liraglutide (Saxenda)) 1.8 mg 0800 SQ 06/22/20 08:00 UNV Melatonin (Melatonin) 3 mg HS PO 06/21/20 21:00 07/05/20 20:31 Non-Formulary Medication (Olodaterol HCl (Striverdi Respimat)) 4 gm DAILY08 IH 06/22/20 08:00 UNV Potassium Chloride (Klor-Con) 10 meq TID PO 06/21/20 21:00 06/27/20 16:15 DC 06/27/20 13:12 Quetiapine Fumarate (SEROquel) 300 mg DAILY08 PO 06/22/20 08:00 07/05/20 09:25 Quetiapine Fumarate (SEROquel) 600 mg HS PO 06/21/20 21:00 07/05/20 20:32 Hydroxyzine HCl (Atarax) 25 mg TID PO 06/21/20 21:00 07/05/20 20:32 Albuterol Sulfate (Ventolin Hfa Inhaler) 2 puff PRN Q4HRS PRN INH SHORTNESS OF BREATH 06/21/20 17:15 Divalproex Sodium (Depakote Er) 500 mg QHS PO 06/21/20 21:00 06/24/20 17:35 DC 06/23/20 19:43 Divalproex Sodium (Depakote Er) 500 mg QHS PO 06/22/20 21:00 06/22/20 12:14 DC Sennosides (Senna) 8.6 mg BIDACBL PO 06/23/20 07:30 07/05/20 13:25 Divalproex Sodium (Depakote Er) 750 mg QHS PO 06/24/20 21:00 06/25/20 19:31 DC 06/24/20 21:05 Divalproex Sodium (Depakote Er) 500 mg QHS PO 06/25/20 21:00 07/05/20 20:31 Divalproex Sodium (Depakote Er) 250 mg QHS PO 06/25/20 21:00 07/05/20 20:31 Furosemide (Lasix) 60 mg 1X ONCE PO 06/26/20 21:15 06/26/20 22:10 DC 06/27/20 05:51 Furosemide (Lasix) 40 mg DAILY PO 06/27/20 16:15 07/05/20 09:23 Potassium Chloride (Klor-Con) 20 meq BID PO 06/27/20 21:00 07/05/20 20:31 I have reviewed the current psychotropics carefully including drug interactions. Risk benefit ratio favors no change other than as noted in my dictated progress note. Diagnosis: Problems: (1) Schizoaffective disorder, bipolar type (2) Impulse control disorder, unspecified (3) Anxiety disorder, unspecified (4) Bipolar disorder, current episode depressed, severe, with psychotic features MICHAEL CLARK MD Jul 05, 2020 22:04
[2020-07-06] MEDS: LEVOTHYROXINE 75 MCG TABLET PO SCH (03:50)
[2020-07-06] MEDS: clonazePAM 0.5 MG TABLET PO PRN ×2 (03:50→16:15)
[2020-07-06 06:01] VITALS: BP 127/77
[2020-07-06] MEDS: LIRAGLUTIDE 1.8 MG SQ SCH (08:00)
[2020-07-06] MEDS: NON FORMULARY ITEM (Olodaterol HCl (Striverdi Respimat) 4 GM) IH SCH (08:00)
[2020-07-06] MEDS: FLUoxetine HCL 20 MG CAPSULE PO SCH (08:59)
[2020-07-06] MEDS: SENNOSIDES 8.6 MG TABLET PO SCH ×2 (08:59→13:32)
[2020-07-06] MEDS: QUEtiapine 100 MG TABLET. PO SCH ×2 (08:59→20:14)
[2020-07-06] MEDS: CALCIUM CARB/VIT D3 500/200 TABLET PO SCH ×2 (08:59→20:15)
[2020-07-06] MEDS: ASPIRIN ENTERIC COATED 81 MG TABLET.DR. PO SCH (08:59)
[2020-07-06] MEDS: SALSALATE 500 MG PO SCH ×2 (08:59→20:13)
[2020-07-06] MEDS: DOCUSATE SODIUM 100 MG CAPSULE PO SCH ×2 (08:59→20:12)
[2020-07-06] MEDS: DICLOFENAC SODIUM 1% TOPICAL GEL 100GM TUBE. TP SCH ×4 (09:00→20:17)
[2020-07-06] MEDS: amLODIPine BESYLATE 5 MG TABLET PO SCH (09:00)
[2020-07-06] MEDS: ARIPiprazole 15 MG TABLET PO SCH (09:00)
[2020-07-06] MEDS: PANTOPRAZOLE 40 MG TABLET. PO SCH (09:00)
[2020-07-06] MEDS: ISOSORBIDE MONONITRATE ER 30 MG TAB.ER.24H PO SCH (09:00)
[2020-07-06] MEDS: FUROSEMIDE 40 MG TABLET PO SCH (09:00)
[2020-07-06] MEDS: hydrOXYzine HCL 25 MG TABLET PO SCH ×3 (09:01→20:17)
[2020-07-06] MEDS: POTASSIUM CHLORIDE 20 MEQ TABLET.ER. PO SCH ×2 (09:02→20:16)
[2020-07-06] MEDS: METOPROLOL TART IMMED RELEASE 25 MG TABLET. PO SCH ×2 (09:03→20:15)
[2020-07-06] MEDS: MINERAL OIL/PETROLATUM TOPICAL CREAM 113GM JAR. TP SCH ×2 (09:04→20:17)
[2020-07-06 15:59] VITALS: BP 152/74
[2020-07-06] MEDS: MELATONIN 3 MG TABLET PO SCH (20:15)
[2020-07-06] MEDS: rOPINIRole 0.5 MG TABLET. PO SCH (20:16)
[2020-07-06] MEDS: DIVALPROEX ER 500 MG TAB.ER.24H PO SCH (20:16)
[2020-07-06] MEDS: DIVALPROEX ER 250 MG TAB.ER.24H. PO SCH (20:17)
[2020-07-06] MEDS: ATORVASTATIN CALCIUM 20 MG TABLET PO SCH (20:17)
--- NOTE | 2020-07-06 22:20 | PDOC ---
Exam Note: [place] Note: Please also refer to the separate dictated note~for this date of service dictated separately.~Patient seen individually. Discussed the patient with Nursing staff reviewed the chart.~Reviewed interim history and current functioning. Reviewed vital signs,~Labs/ Radiology~and current medications noted below. Continue current treatment with the changes noted in the dictated addendum note Assessment: Vital Signs/I&O: Vital Signs Date Time Temp Pulse Resp B/P (MAP) Pulse Ox O2 Delivery O2 Flow Rate FiO2 07/06/20 20:15 71 152/74 07/06/20 15:59 98.2 16 93 Room Air I & O 07/05/20 07/05/20 07/06/20 15:00 23:00 07:00 Intake Total 360 ml 480 ml Balance 360 ml 480 ml Current Medications: Meds: Current Medications Medications (Trade) Dose Ordered Sig/Indra Route PRN Reason Start Time Stop Time Status Last Admin Dose Admin Acetaminophen (Tylenol) 650 mg PRN Q6HRS PRN PO MILD PAIN / TEMP > 100.3'F 06/21/20 16:15 Multi-Ingredient Ointment (Analgesic [place]) 1 joesph PRN QID PRN TP MUSCLE PAIN 06/21/20 16:15 Al Hydroxide/Mg Hydroxide (Mylanta Plus Xs) 15 ml PRN AFTMEALHC PRN PO DYSPEPSIA 06/21/20 16:15 Magnesium Hydroxide (Milk Of Magnesia) 2,400 mg PRN QHS PRN PO CONSTIPATION 06/21/20 16:15 Acetaminophen (Tylenol) 500 mg PRN Q6HRS PRN PO pain or fever 06/21/20 16:30 UNV Albuterol Sulfate (Ventolin) 2.5 mg PRN Q4HRS PRN IH FOR ASTHMA 06/21/20 16:30 UNV Amlodipine Besylate (Norvasc) 5 mg DAILY PO 06/22/20 09:00 07/06/20 09:00 Aripiprazole (Abilify) 15 mg DAILY PO 06/22/20 09:00 07/06/20 09:00 Aspirin (Aspirin Enteric Coated) 81 mg DAILY PO 06/22/20 09:00 07/06/20 08:59 Atorvastatin Calcium (Lipitor) 20 mg QHS PO 06/21/20 21:00 07/06/20 20:17 Calcium/Vitamin D (Oscal D 500mg/ 200uts) 1 tab BID PO 06/21/20 21:00 07/06/20 20:15 Vitamin D (Vitamin D3) 50,000 unit WEEKLY PO 06/25/20 09:00 07/02/20 17:30 Clonazepam (KlonoPIN) 0.5 mg PRN BID PRN PO ANXIETY / AGITATION 06/21/20 16:30 07/06/20 16:15 Cyanocobalamin (Vitamin B-12) 1,000 mcg QMONTH IM 07/17/20 09:00 Diclofenac Sodium (Voltaren) 2 joesph QID TP 06/21/20 17:00 07/06/20 20:17 Docusate Sodium (Colace) 100 mg BID PO 06/21/20 21:00 07/06/20 20:12 Furosemide (Lasix) 20 mg DAILY16 PO 06/22/20 16:00 06/27/20 16:15 DC 06/26/20 15:52 Isosorbide Mononitrate (Imdur) 30 mg DAILY08 PO 06/22/20 08:00 07/06/20 09:00 Ketoconazole (Nizoral 2% Shampoo) 1 joesph PRN DAILY PRN TP DANDRUFF 06/21/20 16:30 Levothyroxine Sodium (Synthroid) 75 mcg DAILY06 PO 06/22/20 06:00 07/06/20 03:50 Metoprolol Tartrate (Lopressor) 12.5 mg BID PO 06/21/20 21:00 07/06/20 20:15 Pantoprazole Sodium (Protonix) 40 mg DAILY08 PO 06/22/20 08:00 07/06/20 09:00 Ropinirole HCl (Requip) 0.5 mg HS PO 06/21/20 21:00 07/06/20 20:16 Salsalate (Salsalate) 1,000 mg 2100 PO 06/21/20 21:00 07/06/20 20:13 Salsalate (Salsalate) 1,500 mg 0800 PO 06/22/20 08:00 07/06/20 08:59 Sennosides (Senna) 8.6 mg BID76 PO 06/21/20 18:00 06/23/20 05:00 DC 06/22/20 16:04 Tramadol HCl (Ultram) 50 mg PRN Q6HRS PRN PO MOD-SEV PAIN 06/21/20 16:30 06/25/20 01:42 Triamcinolone Acetonide (Kenalog) 1 joesph PRN Q12HR PRN TP ITCHING 06/21/20 16:30 Vitamin A/Vitamin D (Vitamin A & D Ointment) 1 joesph PRN Q1HR PRN TP DRY SKIN / SCALING 06/21/20 16:30 Multi-Ingred Cream/Lotion/Oil/ Oint (Hydrocerin) 1 joesph BID TP 06/21/20 21:00 07/06/20 20:17 Fluoxetine HCl (PROzac) 80 mg DAILY08 PO 06/22/20 08:00 07/06/20 08:59 Non-Formulary Medication (Liraglutide (Saxenda)) 1.8 mg 0800 SQ 06/22/20 08:00 UNV Melatonin (Melatonin) 3 mg HS PO 06/21/20 21:00 07/06/20 20:15 Non-Formulary Medication (Olodaterol HCl (Striverdi Respimat)) 4 gm DAILY08 IH 06/22/20 08:00 UNV Potassium Chloride (Klor-Con) 10 meq TID PO 06/21/20 21:00 06/27/20 16:15 DC 06/27/20 13:12 Quetiapine Fumarate (SEROquel) 300 mg DAILY08 PO 06/22/20 08:00 07/06/20 08:59 Quetiapine Fumarate (SEROquel) 600 mg HS PO 06/21/20 21:00 07/06/20 20:14 Hydroxyzine HCl (Atarax) 25 mg TID PO 06/21/20 21:00 07/06/20 20:17 Albuterol Sulfate (Ventolin Hfa Inhaler) 2 puff PRN Q4HRS PRN INH SHORTNESS OF BREATH 06/21/20 17:15 Divalproex Sodium (Depakote Er) 500 mg QHS PO 06/21/20 21:00 06/24/20 17:35 DC 06/23/20 19:43 Divalproex Sodium (Depakote Er) 500 mg QHS PO 06/22/20 21:00 06/22/20 12:14 DC Sennosides (Senna) 8.6 mg BIDACBL PO 06/23/20 07:30 07/06/20 13:32 Divalproex Sodium (Depakote Er) 750 mg QHS PO 06/24/20 21:00 06/25/20 19:31 DC 06/24/20 21:05 Divalproex Sodium (Depakote Er) 500 mg QHS PO 06/25/20 21:00 07/06/20 20:16 Divalproex Sodium (Depakote Er) 250 mg QHS PO 06/25/20 21:00 07/06/20 20:17 Furosemide (Lasix) 60 mg 1X ONCE PO 06/26/20 21:15 06/26/20 22:10 DC 06/27/20 05:51 Furosemide (Lasix) 40 mg DAILY PO 06/27/20 16:15 07/06/20 09:00 Potassium Chloride (Klor-Con) 20 meq BID PO 06/27/20 21:00 07/06/20 20:16 I have reviewed the current psychotropics carefully including drug interactions. Risk benefit ratio favors no change other than as noted in my dictated progress note. Diagnosis: Problems: (1) Schizoaffective disorder, bipolar type (2) Impulse control disorder, unspecified (3) Anxiety disorder, unspecified (4) Bipolar disorder, current episode depressed, severe, with psychotic features MICHAEL CLARK MD Jul 06, 2020 22:20
[2020-07-07] MEDS: clonazePAM 0.5 MG TABLET PO PRN ×2 (04:02→18:12)
[2020-07-07] MEDS: LEVOTHYROXINE 75 MCG TABLET PO SCH (05:35)
[2020-07-07 06:39] VITALS: BP 105/67
--- NOTE | 2020-07-07 07:44 | PDOC ---
Exam Note: [place] Note: This note is a late entry for 07/04/2020 covers elements not covered in my initial note. Subjective: The patient was seen individually in the evening of 07/04/2020 with Jayy WOMACK, discussed and reviewed the chart. The patient slept 5 hours previous night. She has been somewhat paranoid and suspicious, tearful at times. We are still awaiting transfer to [facility]. I had a lengthy discussion with her in her room about this and that she is frustrated that it has taken so long. Reportedly social service staff is contacting [facility] daily but they have no beds and alternate placements will be sought for the patient both for her psychiatric and Oncology follow up. Review of Systems: Ambulation impaired in wheelchair. She has difficulty with breathing at times. No CV, , eye, ENT system symptoms on review. Mental Status Exam: The patient is oriented to herself. Speech coherent. Abstraction fair. Computation impaired. Language function intact. Mood and affect paranoid. Laboratory Data: Reviewed. Impression: Schizoaffective disorder, bipolar type, mixed with psychotic features in partial remission. Anxiety disorder unspecified. Impulse control disorder unspecified. Plan: No change from initial note. Assessment: Vital Signs/I&O: Vital Signs Date Time Temp Pulse Resp B/P (MAP) Pulse Ox O2 Delivery O2 Flow Rate FiO2 07/07/20 06:39 97.1 54 16 105/67 (80) 91 07/06/20 15:59 Room Air I & O 07/06/20 07/06/20 07/07/20 14:59 22:59 06:59 Intake Total 480 ml 480 ml Balance 480 ml 480 ml Current Medications: Meds: Current Medications Medications (Trade) Dose Ordered Sig/Indra Route PRN Reason Start Time Stop Time Status Last Admin Dose Admin Acetaminophen (Tylenol) 650 mg PRN Q6HRS PRN PO MILD PAIN / TEMP > 100.3'F 06/21/20 16:15 Multi-Ingredient Ointment (Analgesic [place]) 1 joesph PRN QID PRN TP MUSCLE PAIN 06/21/20 16:15 Al Hydroxide/Mg Hydroxide (Mylanta Plus Xs) 15 ml PRN AFTMEALHC PRN PO DYSPEPSIA 06/21/20 16:15 Magnesium Hydroxide (Milk Of Magnesia) 2,400 mg PRN QHS PRN PO CONSTIPATION 06/21/20 16:15 Acetaminophen (Tylenol) 500 mg PRN Q6HRS PRN PO pain or fever 06/21/20 16:30 UNV Albuterol Sulfate (Ventolin) 2.5 mg PRN Q4HRS PRN IH FOR ASTHMA 06/21/20 16:30 UNV Amlodipine Besylate (Norvasc) 5 mg DAILY PO 06/22/20 09:00 07/06/20 09:00 Aripiprazole (Abilify) 15 mg DAILY PO 06/22/20 09:00 07/06/20 09:00 Aspirin (Aspirin Enteric Coated) 81 mg DAILY PO 06/22/20 09:00 07/06/20 08:59 Atorvastatin Calcium (Lipitor) 20 mg QHS PO 06/21/20 21:00 07/06/20 20:17 Calcium/Vitamin D (Oscal D 500mg/ 200uts) 1 tab BID PO 06/21/20 21:00 07/06/20 20:15 Vitamin D (Vitamin D3) 50,000 unit WEEKLY PO 06/25/20 09:00 07/02/20 17:30 Clonazepam (KlonoPIN) 0.5 mg PRN BID PRN PO ANXIETY / AGITATION 06/21/20 16:30 07/07/20 04:02 Cyanocobalamin (Vitamin B-12) 1,000 mcg QMONTH IM 07/17/20 09:00 Diclofenac Sodium (Voltaren) 2 joesph QID TP 06/21/20 17:00 07/06/20 20:17 Docusate Sodium (Colace) 100 mg BID PO 06/21/20 21:00 07/06/20 20:12 Furosemide (Lasix) 20 mg DAILY16 PO 06/22/20 16:00 06/27/20 16:15 DC 06/26/20 15:52 Isosorbide Mononitrate (Imdur) 30 mg DAILY08 PO 06/22/20 08:00 07/06/20 09:00 Ketoconazole (Nizoral 2% Shampoo) 1 joesph PRN DAILY PRN TP DANDRUFF 06/21/20 16:30 Levothyroxine Sodium (Synthroid) 75 mcg DAILY06 PO 06/22/20 06:00 07/07/20 05:35 Metoprolol Tartrate (Lopressor) 12.5 mg BID PO 06/21/20 21:00 07/06/20 20:15 Pantoprazole Sodium (Protonix) 40 mg DAILY08 PO 06/22/20 08:00 07/06/20 09:00 Ropinirole HCl (Requip) 0.5 mg HS PO 06/21/20 21:00 07/06/20 20:16 Salsalate (Salsalate) 1,000 mg 2100 PO 06/21/20 21:00 07/06/20 20:13 Salsalate (Salsalate) 1,500 mg 0800 PO 06/22/20 08:00 07/06/20 08:59 Sennosides (Senna) 8.6 mg BID76 PO 06/21/20 18:00 06/23/20 05:00 DC 06/22/20 16:04 Tramadol HCl (Ultram) 50 mg PRN Q6HRS PRN PO MOD-SEV PAIN 06/21/20 16:30 06/25/20 01:42 Triamcinolone Acetonide (Kenalog) 1 joesph PRN Q12HR PRN TP ITCHING 06/21/20 16:30 Vitamin A/Vitamin D (Vitamin A & D Ointment) 1 joesph PRN Q1HR PRN TP DRY SKIN / SCALING 06/21/20 16:30 Multi-Ingred Cream/Lotion/Oil/ Oint (Hydrocerin) 1 joesph BID TP 06/21/20 21:00 07/06/20 20:17 Fluoxetine HCl (PROzac) 80 mg DAILY08 PO 06/22/20 08:00 07/06/20 08:59 Non-Formulary Medication (Liraglutide (Saxenda)) 1.8 mg 0800 SQ 06/22/20 08:00 UNV Melatonin (Melatonin) 3 mg HS PO 06/21/20 21:00 07/06/20 20:15 Non-Formulary Medication (Olodaterol HCl (Striverdi Respimat)) 4 gm DAILY08 IH 06/22/20 08:00 UNV Potassium Chloride (Klor-Con) 10 meq TID PO 06/21/20 21:00 06/27/20 16:15 DC 06/27/20 13:12 Quetiapine Fumarate (SEROquel) 300 mg DAILY08 PO 06/22/20 08:00 07/06/20 08:59 Quetiapine Fumarate (SEROquel) 600 mg HS PO 06/21/20 21:00 07/06/20 20:14 Hydroxyzine HCl (Atarax) 25 mg TID PO 06/21/20 21:00 07/06/20 20:17 Albuterol Sulfate (Ventolin Hfa Inhaler) 2 puff PRN Q4HRS PRN INH SHORTNESS OF BREATH 06/21/20 17:15 Divalproex Sodium (Depakote Er) 500 mg QHS PO 06/21/20 21:00 06/24/20 17:35 DC 06/23/20 19:43 Divalproex Sodium (Depakote Er) 500 mg QHS PO 06/22/20 21:00 06/22/20 12:14 DC Sennosides (Senna) 8.6 mg BIDACBL PO 06/23/20 07:30 07/06/20 13:32 Divalproex Sodium (Depakote Er) 750 mg QHS PO 06/24/20 21:00 06/25/20 19:31 DC 06/24/20 21:05 Divalproex Sodium (Depakote Er) 500 mg QHS PO 06/25/20 21:00 07/06/20 20:16 Divalproex Sodium (Depakote Er) 250 mg QHS PO 06/25/20 21:00 07/06/20 20:17 Furosemide (Lasix) 60 mg 1X ONCE PO 06/26/20 21:15 06/26/20 22:10 DC 06/27/20 05:51 Furosemide (Lasix) 40 mg DAILY PO 06/27/20 16:15 07/06/20 09:00 Potassium Chloride (Klor-Con) 20 meq BID PO 06/27/20 21:00 07/06/20 20:16 I have reviewed the current psychotropics carefully including drug interactions. Risk benefit ratio favors no change other than as noted in my dictated progress note. Diagnosis: Problems: (1) Schizoaffective disorder, bipolar type (2) Impulse control disorder, unspecified (3) Anxiety disorder, unspecified (4) Bipolar disorder, current episode depressed, severe, with psychotic features MICHAEL CLARK MD July 07, 2020 07:44
[2020-07-07] MEDS: LIRAGLUTIDE 1.8 MG SQ SCH (08:00)
[2020-07-07] MEDS: NON FORMULARY ITEM (Olodaterol HCl (Striverdi Respimat) 4 GM) IH SCH (08:00)
--- NOTE | 2020-07-07 08:25 | PDOC ---
Exam Note: [place] Note: This note is a late entry for 07/05/2020 covers elements not covered in my initial note. Subjective: The patient was reviewed in the morning of 07/05/2020 for a treatment team meeting with Ada Clifford, Barbra Lugo and Amanda (medical social worker), Caity, activity therapy and Jayy WOMACK, discussed and reviewed the chart. The patient slept 2-1/2 hours previous night. Average 5 hours. Her appetite remains fair. I met with her at length in her room. She slept poorly last night and was up at 5 a.m. She received Klonopin at 5 p.m. for her anxiety and mood lability. At times she is paranoid, suspicious previous night, withdrawn, attended 5 groups. She remains quite obsessive about discharge to [facility], some of this is totally understandable and I addressed with her in her room. Discussed with Wendy WOMACK in the evening. She has been tearful at times, depressed with passive suicidal ideation, paranoid. Review of Systems: Ambulation impaired in wheelchair. She has difficulty with breathing at times. No CV, , eye, ENT system symptoms on review. Mental Status Exam: The patient is oriented to herself. Speech coherent. Abstraction fair. Computation impaired. Language function intact. Mood and affect paranoid. Laboratory Data: Reviewed. Impression: Schizoaffective disorder, bipolar type, mixed with psychotic features in partial remission. Anxiety disorder unspecified. Impulse control disorder unspecified. Plan: No change from initial note. Assessment: Vital Signs/I&O: Vital Signs Date Time Temp Pulse Resp B/P (MAP) Pulse Ox O2 Delivery O2 Flow Rate FiO2 07/07/20 06:39 97.1 54 16 105/67 (80) 91 07/06/20 15:59 Room Air I & O 07/06/20 07/06/20 07/07/20 15:00 23:00 07:00 Intake Total 480 ml 480 ml Balance 480 ml 480 ml Current Medications: Meds: Current Medications Medications (Trade) Dose Ordered Sig/Indra Route PRN Reason Start Time Stop Time Status Last Admin Dose Admin Acetaminophen (Tylenol) 650 mg PRN Q6HRS PRN PO MILD PAIN / TEMP > 100.3'F 06/21/20 16:15 Multi-Ingredient Ointment (Analgesic [place]) 1 joesph PRN QID PRN TP MUSCLE PAIN 06/21/20 16:15 Al Hydroxide/Mg Hydroxide (Mylanta Plus Xs) 15 ml PRN AFTMEALHC PRN PO DYSPEPSIA 06/21/20 16:15 Magnesium Hydroxide (Milk Of Magnesia) 2,400 mg PRN QHS PRN PO CONSTIPATION 06/21/20 16:15 Acetaminophen (Tylenol) 500 mg PRN Q6HRS PRN PO pain or fever 06/21/20 16:30 UNV Albuterol Sulfate (Ventolin) 2.5 mg PRN Q4HRS PRN IH FOR ASTHMA 06/21/20 16:30 UNV Amlodipine Besylate (Norvasc) 5 mg DAILY PO 06/22/20 09:00 07/06/20 09:00 Aripiprazole (Abilify) 15 mg DAILY PO 06/22/20 09:00 07/06/20 09:00 Aspirin (Aspirin Enteric Coated) 81 mg DAILY PO 06/22/20 09:00 07/06/20 08:59 Atorvastatin Calcium (Lipitor) 20 mg QHS PO 06/21/20 21:00 07/06/20 20:17 Calcium/Vitamin D (Oscal D 500mg/ 200uts) 1 tab BID PO 06/21/20 21:00 07/06/20 20:15 Vitamin D (Vitamin D3) 50,000 unit WEEKLY PO 06/25/20 09:00 07/02/20 17:30 Clonazepam (KlonoPIN) 0.5 mg PRN BID PRN PO ANXIETY / AGITATION 06/21/20 16:30 07/07/20 04:02 Cyanocobalamin (Vitamin B-12) 1,000 mcg QMONTH IM 07/17/20 09:00 Diclofenac Sodium (Voltaren) 2 joesph QID TP 06/21/20 17:00 07/06/20 20:17 Docusate Sodium (Colace) 100 mg BID PO 06/21/20 21:00 07/06/20 20:12 Furosemide (Lasix) 20 mg DAILY16 PO 06/22/20 16:00 06/27/20 16:15 DC 06/26/20 15:52 Isosorbide Mononitrate (Imdur) 30 mg DAILY08 PO 06/22/20 08:00 07/06/20 09:00 Ketoconazole (Nizoral 2% Shampoo) 1 joesph PRN DAILY PRN TP DANDRUFF 06/21/20 16:30 Levothyroxine Sodium (Synthroid) 75 mcg DAILY06 PO 06/22/20 06:00 07/07/20 05:35 Metoprolol Tartrate (Lopressor) 12.5 mg BID PO 06/21/20 21:00 07/06/20 20:15 Pantoprazole Sodium (Protonix) 40 mg DAILY08 PO 06/22/20 08:00 07/06/20 09:00 Ropinirole HCl (Requip) 0.5 mg HS PO 06/21/20 21:00 07/06/20 20:16 Salsalate (Salsalate) 1,000 mg 2100 PO 06/21/20 21:00 07/06/20 20:13 Salsalate (Salsalate) 1,500 mg 0800 PO 06/22/20 08:00 07/06/20 08:59 Sennosides (Senna) 8.6 mg BID76 PO 06/21/20 18:00 06/23/20 05:00 DC 06/22/20 16:04 Tramadol HCl (Ultram) 50 mg PRN Q6HRS PRN PO MOD-SEV PAIN 06/21/20 16:30 06/25/20 01:42 Triamcinolone Acetonide (Kenalog) 1 joesph PRN Q12HR PRN TP ITCHING 06/21/20 16:30 Vitamin A/Vitamin D (Vitamin A & D Ointment) 1 joesph PRN Q1HR PRN TP DRY SKIN / SCALING 06/21/20 16:30 Multi-Ingred Cream/Lotion/Oil/ Oint (Hydrocerin) 1 joesph BID TP 06/21/20 21:00 07/06/20 20:17 Fluoxetine HCl (PROzac) 80 mg DAILY08 PO 06/22/20 08:00 07/06/20 08:59 Non-Formulary Medication (Liraglutide (Saxenda)) 1.8 mg 0800 SQ 06/22/20 08:00 UNV Melatonin (Melatonin) 3 mg HS PO 06/21/20 21:00 07/06/20 20:15 Non-Formulary Medication (Olodaterol HCl (Striverdi Respimat)) 4 gm DAILY08 IH 06/22/20 08:00 UNV Potassium Chloride (Klor-Con) 10 meq TID PO 06/21/20 21:00 06/27/20 16:15 DC 06/27/20 13:12 Quetiapine Fumarate (SEROquel) 300 mg DAILY08 PO 06/22/20 08:00 07/06/20 08:59 Quetiapine Fumarate (SEROquel) 600 mg HS PO 06/21/20 21:00 07/06/20 20:14 Hydroxyzine HCl (Atarax) 25 mg TID PO 06/21/20 21:00 07/06/20 20:17 Albuterol Sulfate (Ventolin Hfa Inhaler) 2 puff PRN Q4HRS PRN INH SHORTNESS OF BREATH 06/21/20 17:15 Divalproex Sodium (Depakote Er) 500 mg QHS PO 06/21/20 21:00 06/24/20 17:35 DC 06/23/20 19:43 Divalproex Sodium (Depakote Er) 500 mg QHS PO 06/22/20 21:00 06/22/20 12:14 DC Sennosides (Senna) 8.6 mg BIDACBL PO 06/23/20 07:30 07/06/20 13:32 Divalproex Sodium (Depakote Er) 750 mg QHS PO 06/24/20 21:00 06/25/20 19:31 DC 06/24/20 21:05 Divalproex Sodium (Depakote Er) 500 mg QHS PO 06/25/20 21:00 07/06/20 20:16 Divalproex Sodium (Depakote Er) 250 mg QHS PO 06/25/20 21:00 07/06/20 20:17 Furosemide (Lasix) 60 mg 1X ONCE PO 06/26/20 21:15 06/26/20 22:10 DC 06/27/20 05:51 Furosemide (Lasix) 40 mg DAILY PO 06/27/20 16:15 07/06/20 09:00 Potassium Chloride (Klor-Con) 20 meq BID PO 06/27/20 21:00 07/06/20 20:16 I have reviewed the current psychotropics carefully including drug interactions. Risk benefit ratio favors no change other than as noted in my dictated progress note. Diagnosis: Problems: (1) Schizoaffective disorder, bipolar type (2) Impulse control disorder, unspecified (3) Anxiety disorder, unspecified (4) Bipolar disorder, current episode depressed, severe, with psychotic features MICHAEL CLARK MD July 07, 2020 08:25
[2020-07-07] MEDS: PANTOPRAZOLE 40 MG TABLET. PO SCH (08:42)
[2020-07-07] MEDS: SENNOSIDES 8.6 MG TABLET PO SCH ×2 (08:42→12:52)
[2020-07-07] MEDS: DOCUSATE SODIUM 100 MG CAPSULE PO SCH ×2 (08:42→21:06)
[2020-07-07] MEDS: QUEtiapine 100 MG TABLET. PO SCH ×2 (08:43→21:07)
[2020-07-07] MEDS: ASPIRIN ENTERIC COATED 81 MG TABLET.DR. PO SCH (08:43)
[2020-07-07] MEDS: ARIPiprazole 15 MG TABLET PO SCH (08:43)
[2020-07-07] MEDS: CALCIUM CARB/VIT D3 500/200 TABLET PO SCH ×2 (08:43→21:04)
[2020-07-07] MEDS: hydrOXYzine HCL 25 MG TABLET PO SCH ×3 (08:43→21:02)
[2020-07-07] MEDS: FLUoxetine HCL 20 MG CAPSULE PO SCH (08:43)
[2020-07-07] MEDS: SALSALATE 500 MG PO SCH ×2 (08:44→21:03)
[2020-07-07] MEDS: FUROSEMIDE 40 MG TABLET PO SCH (08:44)
[2020-07-07] MEDS: POTASSIUM CHLORIDE 20 MEQ TABLET.ER. PO SCH ×2 (08:44→21:07)
[2020-07-07] MEDS: amLODIPine BESYLATE 5 MG TABLET PO SCH (08:45)
[2020-07-07] MEDS: ISOSORBIDE MONONITRATE ER 30 MG TAB.ER.24H PO SCH (08:45)
[2020-07-07] MEDS: METOPROLOL TART IMMED RELEASE 25 MG TABLET. PO SCH ×2 (08:46→21:06)
[2020-07-07] MEDS: DICLOFENAC SODIUM 1% TOPICAL GEL 100GM TUBE. TP SCH ×4 (09:00→21:08)
[2020-07-07] MEDS: MINERAL OIL/PETROLATUM TOPICAL CREAM 113GM JAR. TP SCH ×2 (09:00→21:00)
[2020-07-07 15:52] VITALS: BP 118/73
[2020-07-07] MEDS: ATORVASTATIN CALCIUM 20 MG TABLET PO SCH (21:03)
[2020-07-07] MEDS: DIVALPROEX ER 250 MG TAB.ER.24H. PO SCH (21:04)
[2020-07-07] MEDS: MELATONIN 3 MG TABLET PO SCH (21:05)
[2020-07-07] MEDS: DIVALPROEX ER 500 MG TAB.ER.24H PO SCH (21:05)
[2020-07-07] MEDS: rOPINIRole 0.5 MG TABLET. PO SCH (21:07)
--- NOTE | 2020-07-07 21:57 | PDOC ---
Exam Note: [place] Note: Please also refer to the separate dictated note~for this date of service dictated separately.~Patient seen individually. Discussed the patient with Nursing staff reviewed the chart.~Reviewed interim history and current functioning. Reviewed vital signs,~Labs/ Radiology~and current medications noted below. Continue current treatment with the changes noted in the dictated addendum note Assessment: Vital Signs/I&O: Vital Signs Date Time Temp Pulse Resp B/P (MAP) Pulse Ox O2 Delivery O2 Flow Rate FiO2 07/07/20 21:06 61 118/73 07/07/20 15:52 96.8 16 93 Room Air I & O 07/06/20 07/06/20 07/07/20 15:00 23:00 07:00 Intake Total 480 ml 480 ml Balance 480 ml 480 ml Current Medications: Meds: Current Medications Medications (Trade) Dose Ordered Sig/Indra Route PRN Reason Start Time Stop Time Status Last Admin Dose Admin Acetaminophen (Tylenol) 650 mg PRN Q6HRS PRN PO MILD PAIN / TEMP > 100.3'F 06/21/20 16:15 Multi-Ingredient Ointment (Analgesic [place]) 1 joesph PRN QID PRN TP MUSCLE PAIN 06/21/20 16:15 Al Hydroxide/Mg Hydroxide (Mylanta Plus Xs) 15 ml PRN AFTMEALHC PRN PO DYSPEPSIA 06/21/20 16:15 Magnesium Hydroxide (Milk Of Magnesia) 2,400 mg PRN QHS PRN PO CONSTIPATION 06/21/20 16:15 Acetaminophen (Tylenol) 500 mg PRN Q6HRS PRN PO pain or fever 06/21/20 16:30 UNV Albuterol Sulfate (Ventolin) 2.5 mg PRN Q4HRS PRN IH FOR ASTHMA 06/21/20 16:30 UNV Amlodipine Besylate (Norvasc) 5 mg DAILY PO 06/22/20 09:00 07/07/20 08:45 Aripiprazole (Abilify) 15 mg DAILY PO 06/22/20 09:00 07/07/20 08:43 Aspirin (Aspirin Enteric Coated) 81 mg DAILY PO 06/22/20 09:00 07/07/20 08:43 Atorvastatin Calcium (Lipitor) 20 mg QHS PO 06/21/20 21:00 07/07/20 21:03 Calcium/Vitamin D (Oscal D 500mg/ 200uts) 1 tab BID PO 06/21/20 21:00 07/07/20 21:04 Vitamin D (Vitamin D3) 50,000 unit WEEKLY PO 06/25/20 09:00 07/02/20 17:30 Clonazepam (KlonoPIN) 0.5 mg PRN BID PRN PO ANXIETY / AGITATION 06/21/20 16:30 07/07/20 18:12 Cyanocobalamin (Vitamin B-12) 1,000 mcg QMONTH IM 07/17/20 09:00 Diclofenac Sodium (Voltaren) 2 joesph QID TP 06/21/20 17:00 07/07/20 21:08 Docusate Sodium (Colace) 100 mg BID PO 06/21/20 21:00 07/07/20 21:06 Furosemide (Lasix) 20 mg DAILY16 PO 06/22/20 16:00 06/27/20 16:15 DC 06/26/20 15:52 Isosorbide Mononitrate (Imdur) 30 mg DAILY08 PO 06/22/20 08:00 07/07/20 08:45 Ketoconazole (Nizoral 2% Shampoo) 1 joesph PRN DAILY PRN TP DANDRUFF 06/21/20 16:30 Levothyroxine Sodium (Synthroid) 75 mcg DAILY06 PO 06/22/20 06:00 07/07/20 05:35 Metoprolol Tartrate (Lopressor) 12.5 mg BID PO 06/21/20 21:00 07/07/20 21:06 Pantoprazole Sodium (Protonix) 40 mg DAILY08 PO 06/22/20 08:00 07/07/20 08:42 Ropinirole HCl (Requip) 0.5 mg HS PO 06/21/20 21:00 07/07/20 21:07 Salsalate (Salsalate) 1,000 mg 2100 PO 06/21/20 21:00 07/07/20 21:03 Salsalate (Salsalate) 1,500 mg 0800 PO 06/22/20 08:00 07/07/20 08:44 Sennosides (Senna) 8.6 mg BID76 PO 06/21/20 18:00 06/23/20 05:00 DC 06/22/20 16:04 Tramadol HCl (Ultram) 50 mg PRN Q6HRS PRN PO MOD-SEV PAIN 06/21/20 16:30 06/25/20 01:42 Triamcinolone Acetonide (Kenalog) 1 joesph PRN Q12HR PRN TP ITCHING 06/21/20 16:30 Vitamin A/Vitamin D (Vitamin A & D Ointment) 1 joesph PRN Q1HR PRN TP DRY SKIN / SCALING 06/21/20 16:30 Multi-Ingred Cream/Lotion/Oil/ Oint (Hydrocerin) 1 joesph BID TP 06/21/20 21:00 07/07/20 21:00 Fluoxetine HCl (PROzac) 80 mg DAILY08 PO 06/22/20 08:00 07/07/20 08:43 Non-Formulary Medication (Liraglutide (Saxenda)) 1.8 mg 0800 SQ 06/22/20 08:00 UNV Melatonin (Melatonin) 3 mg HS PO 06/21/20 21:00 07/07/20 21:05 Non-Formulary Medication (Olodaterol HCl (Striverdi Respimat)) 4 gm DAILY08 IH 06/22/20 08:00 UNV Potassium Chloride (Klor-Con) 10 meq TID PO 06/21/20 21:00 06/27/20 16:15 DC 06/27/20 13:12 Quetiapine Fumarate (SEROquel) 300 mg DAILY08 PO 06/22/20 08:00 07/07/20 08:43 Quetiapine Fumarate (SEROquel) 600 mg HS PO 06/21/20 21:00 07/07/20 21:07 Hydroxyzine HCl (Atarax) 25 mg TID PO 06/21/20 21:00 07/07/20 21:02 Albuterol Sulfate (Ventolin Hfa Inhaler) 2 puff PRN Q4HRS PRN INH SHORTNESS OF BREATH 06/21/20 17:15 Divalproex Sodium (Depakote Er) 500 mg QHS PO 06/21/20 21:00 06/24/20 17:35 DC 06/23/20 19:43 Divalproex Sodium (Depakote Er) 500 mg QHS PO 06/22/20 21:00 06/22/20 12:14 DC Sennosides (Senna) 8.6 mg BIDACBL PO 06/23/20 07:30 07/07/20 12:52 Divalproex Sodium (Depakote Er) 750 mg QHS PO 06/24/20 21:00 06/25/20 19:31 DC 06/24/20 21:05 Divalproex Sodium (Depakote Er) 500 mg QHS PO 06/25/20 21:00 07/07/20 21:05 Divalproex Sodium (Depakote Er) 250 mg QHS PO 06/25/20 21:00 07/07/20 21:04 Furosemide (Lasix) 60 mg 1X ONCE PO 06/26/20 21:15 06/26/20 22:10 DC 06/27/20 05:51 Furosemide (Lasix) 40 mg DAILY PO 06/27/20 16:15 07/07/20 08:44 Potassium Chloride (Klor-Con) 20 meq BID PO 06/27/20 21:00 07/07/20 21:07 I have reviewed the current psychotropics carefully including drug interactions. Risk benefit ratio favors no change other than as noted in my dictated progress note. Diagnosis: Problems: (1) Schizoaffective disorder, bipolar type (2) Impulse control disorder, unspecified (3) Anxiety disorder, unspecified (4) Bipolar disorder, current episode depressed, severe, with psychotic features MICHAEL CLARK MD July 07, 2020 21:57
[2020-07-08] MEDS: ASPIRIN ENTERIC COATED 81 MG TABLET.DR. PO SCH (04:23)
[2020-07-08] MEDS: POTASSIUM CHLORIDE 20 MEQ TABLET.ER. PO SCH ×2 (04:23→20:47)
[2020-07-08] MEDS: PANTOPRAZOLE 40 MG TABLET. PO SCH (04:24)
[2020-07-08] MEDS: ARIPiprazole 15 MG TABLET PO SCH (04:24)
[2020-07-08] MEDS: hydrOXYzine HCL 25 MG TABLET PO SCH ×3 (04:24→20:46)
[2020-07-08] MEDS: SENNOSIDES 8.6 MG TABLET PO SCH ×2 (04:24→12:20)
[2020-07-08] MEDS: DOCUSATE SODIUM 100 MG CAPSULE PO SCH ×2 (04:25→20:46)
[2020-07-08] MEDS: LEVOTHYROXINE 75 MCG TABLET PO SCH (04:25)
[2020-07-08] MEDS: clonazePAM 0.5 MG TABLET PO PRN ×2 (04:25→16:24)
[2020-07-08] MEDS: FLUoxetine HCL 20 MG CAPSULE PO SCH (04:26)
[2020-07-08] MEDS: QUEtiapine 100 MG TABLET. PO SCH ×2 (04:27→20:45)
[2020-07-08 06:27] VITALS: BP 101/63
[2020-07-08] MEDS: LIRAGLUTIDE 1.8 MG SQ SCH (08:00)
[2020-07-08] MEDS: NON FORMULARY ITEM (Olodaterol HCl (Striverdi Respimat) 4 GM) IH SCH (08:00)
[2020-07-08] MEDS: FUROSEMIDE 40 MG TABLET PO SCH (08:29)
[2020-07-08] MEDS: ISOSORBIDE MONONITRATE ER 30 MG TAB.ER.24H PO SCH (08:30)
[2020-07-08] MEDS: amLODIPine BESYLATE 5 MG TABLET PO SCH (08:31)
[2020-07-08] MEDS: CALCIUM CARB/VIT D3 500/200 TABLET PO SCH ×2 (08:31→20:45)
[2020-07-08] MEDS: traMADol 50 MG TABLET PO PRN (08:31)
[2020-07-08] MEDS: METOPROLOL TART IMMED RELEASE 25 MG TABLET. PO SCH ×2 (08:31→20:46)
[2020-07-08] MEDS: DICLOFENAC SODIUM 1% TOPICAL GEL 100GM TUBE. TP SCH ×4 (08:32→20:48)
[2020-07-08] MEDS: SALSALATE 500 MG PO SCH ×2 (08:32→20:47)
[2020-07-08] MEDS: MINERAL OIL/PETROLATUM TOPICAL CREAM 113GM JAR. TP SCH ×2 (08:32→20:47)
[2020-07-08 16:19] VITALS: BP 132/73
[2020-07-08] MEDS: DIVALPROEX ER 250 MG TAB.ER.24H. PO SCH (20:46)
[2020-07-08] MEDS: MELATONIN 3 MG TABLET PO SCH (20:46)
[2020-07-08] MEDS: rOPINIRole 0.5 MG TABLET. PO SCH (20:46)
[2020-07-08] MEDS: DIVALPROEX ER 500 MG TAB.ER.24H PO SCH (20:46)
[2020-07-08] MEDS: ATORVASTATIN CALCIUM 20 MG TABLET PO SCH (20:46)
--- NOTE | 2020-07-08 22:04 | PDOC ---
Exam Note: [place] Note: Please also refer to the separate dictated note~for this date of service dictated separately.~Patient seen individually. Discussed the patient with Nursing staff reviewed the chart.~Reviewed interim history and current functioning. Reviewed vital signs,~Labs/ Radiology~and current medications noted below. Continue current treatment with the changes noted in the dictated addendum note Assessment: Vital Signs/I&O: Vital Signs Date Time Temp Pulse Resp B/P (MAP) Pulse Ox O2 Delivery O2 Flow Rate FiO2 07/08/20 20:46 61 132/73 07/08/20 16:19 98.7 20 96 07/08/20 06:27 Room Air I & O 07/07/20 07/07/20 07/08/20 15:00 23:00 07:00 Intake Total 720 ml 600 ml Balance 720 ml 600 ml Current Medications: Meds: Current Medications Medications (Trade) Dose Ordered Sig/Indra Route PRN Reason Start Time Stop Time Status Last Admin Dose Admin Acetaminophen (Tylenol) 650 mg PRN Q6HRS PRN PO MILD PAIN / TEMP > 100.3'F 06/21/20 16:15 Multi-Ingredient Ointment (Analgesic [place]) 1 joesph PRN QID PRN TP MUSCLE PAIN 06/21/20 16:15 Al Hydroxide/Mg Hydroxide (Mylanta Plus Xs) 15 ml PRN AFTMEALHC PRN PO DYSPEPSIA 06/21/20 16:15 Magnesium Hydroxide (Milk Of Magnesia) 2,400 mg PRN QHS PRN PO CONSTIPATION 06/21/20 16:15 Acetaminophen (Tylenol) 500 mg PRN Q6HRS PRN PO pain or fever 06/21/20 16:30 UNV Albuterol Sulfate (Ventolin) 2.5 mg PRN Q4HRS PRN IH FOR ASTHMA 06/21/20 16:30 UNV Amlodipine Besylate (Norvasc) 5 mg DAILY PO 06/22/20 09:00 07/08/20 08:31 Aripiprazole (Abilify) 15 mg DAILY PO 06/22/20 09:00 07/08/20 04:24 Aspirin (Aspirin Enteric Coated) 81 mg DAILY PO 06/22/20 09:00 07/08/20 04:23 Atorvastatin Calcium (Lipitor) 20 mg QHS PO 06/21/20 21:00 07/08/20 20:46 Calcium/Vitamin D (Oscal D 500mg/ 200uts) 1 tab BID PO 06/21/20 21:00 07/08/20 20:45 Vitamin D (Vitamin D3) 50,000 unit WEEKLY PO 06/25/20 09:00 07/02/20 17:30 Clonazepam (KlonoPIN) 0.5 mg PRN BID PRN PO ANXIETY / AGITATION 06/21/20 16:30 07/08/20 16:24 Cyanocobalamin (Vitamin B-12) 1,000 mcg QMONTH IM 07/17/20 09:00 Diclofenac Sodium (Voltaren) 2 joesph QID TP 06/21/20 17:00 07/08/20 08:32 Docusate Sodium (Colace) 100 mg BID PO 06/21/20 21:00 07/08/20 20:46 Furosemide (Lasix) 20 mg DAILY16 PO 06/22/20 16:00 06/27/20 16:15 DC 06/26/20 15:52 Isosorbide Mononitrate (Imdur) 30 mg DAILY08 PO 06/22/20 08:00 07/08/20 08:30 Ketoconazole (Nizoral 2% Shampoo) 1 joesph PRN DAILY PRN TP DANDRUFF 06/21/20 16:30 Levothyroxine Sodium (Synthroid) 75 mcg DAILY06 PO 06/22/20 06:00 07/08/20 04:25 Metoprolol Tartrate (Lopressor) 12.5 mg BID PO 06/21/20 21:00 07/08/20 20:46 Pantoprazole Sodium (Protonix) 40 mg DAILY08 PO 06/22/20 08:00 07/08/20 04:24 Ropinirole HCl (Requip) 0.5 mg HS PO 06/21/20 21:00 07/08/20 20:46 Salsalate (Salsalate) 1,000 mg 2100 PO 06/21/20 21:00 07/08/20 20:47 Salsalate (Salsalate) 1,500 mg 0800 PO 06/22/20 08:00 07/08/20 08:32 Sennosides (Senna) 8.6 mg BID76 PO 06/21/20 18:00 06/23/20 05:00 DC 06/22/20 16:04 Tramadol HCl (Ultram) 50 mg PRN Q6HRS PRN PO MOD-SEV PAIN 06/21/20 16:30 07/08/20 08:31 Triamcinolone Acetonide (Kenalog) 1 joesph PRN Q12HR PRN TP ITCHING 06/21/20 16:30 Vitamin A/Vitamin D (Vitamin A & D Ointment) 1 joesph PRN Q1HR PRN TP DRY SKIN / SCALING 06/21/20 16:30 Multi-Ingred Cream/Lotion/Oil/ Oint (Hydrocerin) 1 joesph BID TP 06/21/20 21:00 07/08/20 20:47 Fluoxetine HCl (PROzac) 80 mg DAILY08 PO 06/22/20 08:00 07/08/20 18:05 DC 07/08/20 04:26 Non-Formulary Medication (Liraglutide (Saxenda)) 1.8 mg 0800 SQ 06/22/20 08:00 UNV Melatonin (Melatonin) 3 mg HS PO 06/21/20 21:00 07/08/20 20:46 Non-Formulary Medication (Olodaterol HCl (Striverdi Respimat)) 4 gm DAILY08 IH 06/22/20 08:00 UNV Potassium Chloride (Klor-Con) 10 meq TID PO 06/21/20 21:00 06/27/20 16:15 DC 06/27/20 13:12 Quetiapine Fumarate (SEROquel) 300 mg DAILY08 PO 06/22/20 08:00 07/08/20 04:27 Quetiapine Fumarate (SEROquel) 600 mg HS PO 06/21/20 21:00 07/08/20 20:45 Hydroxyzine HCl (Atarax) 25 mg TID PO 06/21/20 21:00 07/08/20 20:46 Albuterol Sulfate (Ventolin Hfa Inhaler) 2 puff PRN Q4HRS PRN INH SHORTNESS OF BREATH 06/21/20 17:15 Divalproex Sodium (Depakote Er) 500 mg QHS PO 06/21/20 21:00 06/24/20 17:35 DC 06/23/20 19:43 Divalproex Sodium (Depakote Er) 500 mg QHS PO 06/22/20 21:00 06/22/20 12:14 DC Sennosides (Senna) 8.6 mg BIDACBL PO 06/23/20 07:30 07/08/20 12:20 Divalproex Sodium (Depakote Er) 750 mg QHS PO 06/24/20 21:00 06/25/20 19:31 DC 06/24/20 21:05 Divalproex Sodium (Depakote Er) 500 mg QHS PO 06/25/20 21:00 07/08/20 20:46 Divalproex Sodium (Depakote Er) 250 mg QHS PO 06/25/20 21:00 07/08/20 20:46 Furosemide (Lasix) 60 mg 1X ONCE PO 06/26/20 21:15 06/26/20 22:10 DC 06/27/20 05:51 Furosemide (Lasix) 40 mg DAILY PO 06/27/20 16:15 07/08/20 08:29 Potassium Chloride (Klor-Con) 20 meq BID PO 06/27/20 21:00 07/08/20 20:47 Fluoxetine HCl (PROzac) 60 mg DAILY08 PO 07/09/20 08:00 Bupropion HCl (Wellbutrin Xl) 150 mg DAILY PO 07/09/20 09:00 I have reviewed the current psychotropics carefully including drug interactions. Risk benefit ratio favors no change other than as noted in my dictated progress note. Diagnosis: Problems: (1) Schizoaffective disorder, bipolar type (2) Impulse control disorder, unspecified (3) Anxiety disorder, unspecified (4) Bipolar disorder, current episode depressed, severe, with psychotic features MICHAEL CLARK MD July 08, 2020 22:04
[2020-07-09] MEDS: clonazePAM 0.5 MG TABLET PO PRN ×2 (03:23→19:44)
[2020-07-09] MEDS: LEVOTHYROXINE 75 MCG TABLET PO SCH (03:24)
[2020-07-09 06:10] VITALS: BP 141/84
--- NOTE | 2020-07-09 07:02 | PDOC ---
Exam Note: [place] Note: This note is a late entry for 07/06/2020 covers elements not covered in my initial note. Subjective: The patient was seen individually in the evening of 07/06/2020 with Eden WOMACK, discussed and reviewed the chart. The patient slept 8-1/2 hours previous night. She has been anxious, restless, frequently tearful, unsure if she would be going to get her [place] lung treatment at the [facility]. She is paranoid, talking about being here. Review of Systems: Ambulation impaired in wheelchair. No CV, , eye, ENT system symptoms on review. Mental Status Exam: The patient is oriented to herself. She has been paranoid, suspicious, tearful, labile as I met with her. Speech coherent. Abstraction fair. Computation impaired. Language function intact. Mood and affect paranoid. Laboratory Data: Reviewed. Impression: Schizoaffective disorder, bipolar type, mixed with psychotic features in partial remission. Anxiety disorder unspecified. Impulse control disorder unspecified. Plan: Continue psychotropics from initial note. We processed discharge plans a t length. Assessment: Vital Signs/I&O: Vital Signs Date Time Temp Pulse Resp B/P (MAP) Pulse Ox O2 Delivery O2 Flow Rate FiO2 07/09/20 06:10 97.2 55 17 141/84 (103) 91 07/08/20 06:27 Room Air I & O 07/08/20 07/08/20 07/09/20 15:00 23:00 07:00 Intake Total 360 ml 360 ml Balance 360 ml 360 ml Current Medications: Meds: Current Medications Medications (Trade) Dose Ordered Sig/Indra Route PRN Reason Start Time Stop Time Status Last Admin Dose Admin Acetaminophen (Tylenol) 650 mg PRN Q6HRS PRN PO MILD PAIN / TEMP > 100.3'F 06/21/20 16:15 Multi-Ingredient Ointment (Analgesic [place]) 1 joesph PRN QID PRN TP MUSCLE PAIN 06/21/20 16:15 Al Hydroxide/Mg Hydroxide (Mylanta Plus Xs) 15 ml PRN AFTMEALHC PRN PO DYSPEPSIA 06/21/20 16:15 Magnesium Hydroxide (Milk Of Magnesia) 2,400 mg PRN QHS PRN PO CONSTIPATION 06/21/20 16:15 Acetaminophen (Tylenol) 500 mg PRN Q6HRS PRN PO pain or fever 06/21/20 16:30 UNV Albuterol Sulfate (Ventolin) 2.5 mg PRN Q4HRS PRN IH FOR ASTHMA 06/21/20 16:30 UNV Amlodipine Besylate (Norvasc) 5 mg DAILY PO 06/22/20 09:00 07/08/20 08:31 Aripiprazole (Abilify) 15 mg DAILY PO 06/22/20 09:00 07/08/20 04:24 Aspirin (Aspirin Enteric Coated) 81 mg DAILY PO 06/22/20 09:00 07/08/20 04:23 Atorvastatin Calcium (Lipitor) 20 mg QHS PO 06/21/20 21:00 07/08/20 20:46 Calcium/Vitamin D (Oscal D 500mg/ 200uts) 1 tab BID PO 06/21/20 21:00 07/08/20 20:45 Vitamin D (Vitamin D3) 50,000 unit WEEKLY PO 06/25/20 09:00 07/02/20 17:30 Clonazepam (KlonoPIN) 0.5 mg PRN BID PRN PO ANXIETY / AGITATION 06/21/20 16:30 07/09/20 03:23 Cyanocobalamin (Vitamin B-12) 1,000 mcg QMONTH IM 07/17/20 09:00 Diclofenac Sodium (Voltaren) 2 joesph QID TP 06/21/20 17:00 07/08/20 08:32 Docusate Sodium (Colace) 100 mg BID PO 06/21/20 21:00 07/08/20 20:46 Furosemide (Lasix) 20 mg DAILY16 PO 06/22/20 16:00 06/27/20 16:15 DC 06/26/20 15:52 Isosorbide Mononitrate (Imdur) 30 mg DAILY08 PO 06/22/20 08:00 07/08/20 08:30 Ketoconazole (Nizoral 2% Shampoo) 1 joesph PRN DAILY PRN TP DANDRUFF 06/21/20 16:30 Levothyroxine Sodium (Synthroid) 75 mcg DAILY06 PO 06/22/20 06:00 07/09/20 03:24 Metoprolol Tartrate (Lopressor) 12.5 mg BID PO 06/21/20 21:00 07/08/20 20:46 Pantoprazole Sodium (Protonix) 40 mg DAILY08 PO 06/22/20 08:00 07/08/20 04:24 Ropinirole HCl (Requip) 0.5 mg HS PO 06/21/20 21:00 07/08/20 20:46 Salsalate (Salsalate) 1,000 mg 2100 PO 06/21/20 21:00 07/08/20 20:47 Salsalate (Salsalate) 1,500 mg 0800 PO 06/22/20 08:00 07/08/20 08:32 Sennosides (Senna) 8.6 mg BID76 PO 06/21/20 18:00 06/23/20 05:00 DC 06/22/20 16:04 Tramadol HCl (Ultram) 50 mg PRN Q6HRS PRN PO MOD-SEV PAIN 06/21/20 16:30 07/08/20 08:31 Triamcinolone Acetonide (Kenalog) 1 joesph PRN Q12HR PRN TP ITCHING 06/21/20 16:30 Vitamin A/Vitamin D (Vitamin A & D Ointment) 1 joesph PRN Q1HR PRN TP DRY SKIN / SCALING 06/21/20 16:30 Multi-Ingred Cream/Lotion/Oil/ Oint (Hydrocerin) 1 joesph BID TP 06/21/20 21:00 07/08/20 20:47 Fluoxetine HCl (PROzac) 80 mg DAILY08 PO 06/22/20 08:00 07/08/20 18:05 DC 07/08/20 04:26 Non-Formulary Medication (Liraglutide (Saxenda)) 1.8 mg 0800 SQ 06/22/20 08:00 UNV Melatonin (Melatonin) 3 mg HS PO 06/21/20 21:00 07/08/20 20:46 Non-Formulary Medication (Olodaterol HCl (Striverdi Respimat)) 4 gm DAILY08 IH 06/22/20 08:00 UNV Potassium Chloride (Klor-Con) 10 meq TID PO 06/21/20 21:00 06/27/20 16:15 DC 06/27/20 13:12 Quetiapine Fumarate (SEROquel) 300 mg DAILY08 PO 06/22/20 08:00 07/08/20 04:27 Quetiapine Fumarate (SEROquel) 600 mg HS PO 06/21/20 21:00 07/08/20 20:45 Hydroxyzine HCl (Atarax) 25 mg TID PO 06/21/20 21:00 07/08/20 20:46 Albuterol Sulfate (Ventolin Hfa Inhaler) 2 puff PRN Q4HRS PRN INH SHORTNESS OF BREATH 06/21/20 17:15 Divalproex Sodium (Depakote Er) 500 mg QHS PO 06/21/20 21:00 06/24/20 17:35 DC 06/23/20 19:43 Divalproex Sodium (Depakote Er) 500 mg QHS PO 06/22/20 21:00 06/22/20 12:14 DC Sennosides (Senna) 8.6 mg BIDACBL PO 06/23/20 07:30 07/08/20 12:20 Divalproex Sodium (Depakote Er) 750 mg QHS PO 06/24/20 21:00 06/25/20 19:31 DC 06/24/20 21:05 Divalproex Sodium (Depakote Er) 500 mg QHS PO 06/25/20 21:00 07/08/20 20:46 Divalproex Sodium (Depakote Er) 250 mg QHS PO 06/25/20 21:00 07/08/20 20:46 Furosemide (Lasix) 60 mg 1X ONCE PO 06/26/20 21:15 06/26/20 22:10 DC 06/27/20 05:51 Furosemide (Lasix) 40 mg DAILY PO 06/27/20 16:15 07/08/20 08:29 Potassium Chloride (Klor-Con) 20 meq BID PO 06/27/20 21:00 07/08/20 20:47 Fluoxetine HCl (PROzac) 60 mg DAILY08 PO 07/09/20 08:00 Bupropion HCl (Wellbutrin Xl) 150 mg DAILY PO 07/09/20 09:00 I have reviewed the current psychotropics carefully including drug interactions. Risk benefit ratio favors no change other than as noted in my dictated progress note. Diagnosis: Problems: (1) Schizoaffective disorder, bipolar type (2) Impulse control disorder, unspecified (3) Anxiety disorder, unspecified (4) Bipolar disorder, current episode depressed, severe, with psychotic features MICHAEL CLARK MD July 09, 2020 07:02
--- NOTE | 2020-07-09 07:32 | PDOC ---
Exam Note: [place] Note: This note is a late entry for 07/07/2020 covers elements not covered in my initial note. Subjective: The patient was seen individually in the evening of 07/07/2020 with Manny WOMACK, discussed and reviewed the chart. The patient slept 5 hours previous night. She has been isolative, gets a little anxious, tearful about discharge plans which we addressed. Review of Systems: Ambulation impaired in wheelchair. She has difficulty with breathing at times. No CV, , eye, ENT system symptoms on review. Mental Status Exam: The patient is oriented to herself. Speech coherent. Abstraction fair. Computation impaired. Language function intact. Mood and affect paranoid, anxious. Laboratory Data: Reviewed. Impression: Schizoaffective disorder, bipolar type, mixed with psychotic features in partial remission. Anxiety disorder unspecified. Impulse control disorder unspecified. Plan: No change from initial note. Assessment: Vital Signs/I&O: Vital Signs Date Time Temp Pulse Resp B/P (MAP) Pulse Ox O2 Delivery O2 Flow Rate FiO2 07/09/20 06:10 97.2 55 17 141/84 (103) 91 07/08/20 06:27 Room Air I & O0 07/08/20 07/08/20 07/09/20 15:00 23:00 07:00 Intake Total 360 ml 360 ml Balance 360 ml 360 ml Current Medications: Meds: Current Medications Medications (Trade) Dose Ordered Sig/Indra Route PRN Reason Start Time Stop Time Status Last Admin Dose Admin Acetaminophen (Tylenol) 650 mg PRN Q6HRS PRN PO MILD PAIN / TEMP > 100.3'F 06/21/20 16:15 Multi-Ingredient Ointment (Analgesic [place]) 1 joesph PRN QID PRN TP MUSCLE PAIN 06/21/20 16:15 Al Hydroxide/Mg Hydroxide (Mylanta Plus Xs) 15 ml PRN AFTMEALHC PRN PO DYSPEPSIA 06/21/20 16:15 Magnesium Hydroxide (Milk Of Magnesia) 2,400 mg PRN QHS PRN PO CONSTIPATION 06/21/20 16:15 Acetaminophen (Tylenol) 500 mg PRN Q6HRS PRN PO pain or fever 06/21/20 16:30 UNV Albuterol Sulfate (Ventolin) 2.5 mg PRN Q4HRS PRN IH FOR ASTHMA 06/21/20 16:30 UNV Amlodipine Besylate (Norvasc) 5 mg DAILY PO 06/22/20 09:00 07/08/20 08:31 Aripiprazole (Abilify) 15 mg DAILY PO 06/22/20 09:00 07/08/20 04:24 Aspirin (Aspirin Enteric Coated) 81 mg DAILY PO 06/22/20 09:00 07/08/20 04:23 Atorvastatin Calcium (Lipitor) 20 mg QHS PO 06/21/20 21:00 07/08/20 20:46 Calcium/Vitamin D (Oscal D 500mg/ 200uts) 1 tab BID PO 06/21/20 21:00 07/08/20 20:45 Vitamin D (Vitamin D3) 50,000 unit WEEKLY PO 06/25/20 09:00 07/02/20 17:30 Clonazepam (KlonoPIN) 0.5 mg PRN BID PRN PO ANXIETY / AGITATION 06/21/20 16:30 07/09/20 03:23 Cyanocobalamin (Vitamin B-12) 1,000 mcg QMONTH IM 07/17/20 09:00 Diclofenac Sodium (Voltaren) 2 joesph QID TP 06/21/20 17:00 07/08/20 08:32 Docusate Sodium (Colace) 100 mg BID PO 06/21/20 21:00 07/08/20 20:46 Furosemide (Lasix) 20 mg DAILY16 PO 06/22/20 16:00 06/27/20 16:15 DC 06/26/20 15:52 Isosorbide Mononitrate (Imdur) 30 mg DAILY08 PO 06/22/20 08:00 07/08/20 08:30 Ketoconazole (Nizoral 2% Shampoo) 1 joesph PRN DAILY PRN TP DANDRUFF 06/21/20 16:30 Levothyroxine Sodium (Synthroid) 75 mcg DAILY06 PO 06/22/20 06:00 07/09/20 03:24 Metoprolol Tartrate (Lopressor) 12.5 mg BID PO 06/21/20 21:00 07/08/20 20:46 Pantoprazole Sodium (Protonix) 40 mg DAILY08 PO 06/22/20 08:00 07/08/20 04:24 Ropinirole HCl (Requip) 0.5 mg HS PO 06/21/20 21:00 07/08/20 20:46 Salsalate (Salsalate) 1,000 mg 2100 PO 06/21/20 21:00 07/08/20 20:47 Salsalate (Salsalate) 1,500 mg 0800 PO 06/22/20 08:00 07/08/20 08:32 Sennosides (Senna) 8.6 mg BID76 PO 06/21/20 18:00 06/23/20 05:00 DC 06/22/20 16:04 Tramadol HCl (Ultram) 50 mg PRN Q6HRS PRN PO MOD-SEV PAIN 06/21/20 16:30 07/08/20 08:31 Triamcinolone Acetonide (Kenalog) 1 joesph PRN Q12HR PRN TP ITCHING 06/21/20 16:30 Vitamin A/Vitamin D (Vitamin A & D Ointment) 1 joesph PRN Q1HR PRN TP DRY SKIN / SCALING 06/21/20 16:30 Multi-Ingred Cream/Lotion/Oil/ Oint (Hydrocerin) 1 joesph BID TP 06/21/20 21:00 07/08/20 20:47 Fluoxetine HCl (PROzac) 80 mg DAILY08 PO 06/22/20 08:00 07/08/20 18:05 DC 07/08/20 04:26 Non-Formulary Medication (Liraglutide (Saxenda)) 1.8 mg 0800 SQ 06/22/20 08:00 UNV Melatonin (Melatonin) 3 mg HS PO 06/21/20 21:00 07/08/20 20:46 Non-Formulary Medication (Olodaterol HCl (Striverdi Respimat)) 4 gm DAILY08 IH 06/22/20 08:00 UNV Potassium Chloride (Klor-Con) 10 meq TID PO 06/21/20 21:00 06/27/20 16:15 DC 06/27/20 13:12 Quetiapine Fumarate (SEROquel) 300 mg DAILY08 PO 06/22/20 08:00 07/08/20 04:27 Quetiapine Fumarate (SEROquel) 600 mg HS PO 06/21/20 21:00 07/08/20 20:45 Hydroxyzine HCl (Atarax) 25 mg TID PO 06/21/20 21:00 07/08/20 20:46 Albuterol Sulfate (Ventolin Hfa Inhaler) 2 puff PRN Q4HRS PRN INH SHORTNESS OF BREATH 06/21/20 17:15 Divalproex Sodium (Depakote Er) 500 mg QHS PO 06/21/20 21:00 06/24/20 17:35 DC 06/23/20 19:43 Divalproex Sodium (Depakote Er) 500 mg QHS PO 06/22/20 21:00 06/22/20 12:14 DC Sennosides (Senna) 8.6 mg BIDACBL PO 06/23/20 07:30 07/08/20 12:20 Divalproex Sodium (Depakote Er) 750 mg QHS PO 06/24/20 21:00 06/25/20 19:31 DC 06/24/20 21:05 Divalproex Sodium (Depakote Er) 500 mg QHS PO 06/25/20 21:00 07/08/20 20:46 Divalproex Sodium (Depakote Er) 250 mg QHS PO 06/25/20 21:00 07/08/20 20:46 Furosemide (Lasix) 60 mg 1X ONCE PO 06/26/20 21:15 06/26/20 22:10 DC 06/27/20 05:51 Furosemide (Lasix) 40 mg DAILY PO 06/27/20 16:15 07/08/20 08:29 Potassium Chloride (Klor-Con) 20 meq BID PO 06/27/20 21:00 07/08/20 20:47 Fluoxetine HCl (PROzac) 60 mg DAILY08 PO 07/09/20 08:00 Bupropion HCl (Wellbutrin Xl) 150 mg DAILY PO 07/09/20 09:00 I have reviewed the current psychotropics carefully including drug interactions. Risk benefit ratio favors no change other than as noted in my dictated progress note. Diagnosis: Problems: (1) Schizoaffective disorder, bipolar type (2) Impulse control disorder, unspecified (3) Anxiety disorder, unspecified (4) Bipolar disorder, current episode depressed, severe, with psychotic features MICHAEL CLARK MD July 09, 2020 07:32
--- NOTE | 2020-07-09 07:56 | PDOC ---
Exam Note: [place] Note: This note is a late entry for 07/08/2020 covers elements not covered in my initial note. Subjective: The patient was seen individually in the evening of 07/08/2020 with Niesha WOMACK, discussed and reviewed the chart. The patient slept 6-3/4 hours previous night. She has been somewhat depressed. She made statements to nursing staff that it is not worthwhile that she goes to the [facility] for Psychiatry and Oncology treatment. She rather leave here and go back to her facility. Review of Systems: Ambulation impaired in wheelchair. No CV, , eye, ENT system symptoms on review. Mental Status Exam: The patient is reasonably oriented. Speech coherent. Abstraction fair. Computation impaired. Language function intact. Mood and affect somewhat withdrawn. Laboratory Data: Reviewed. Impression: Schizoaffective disorder, bipolar type, mixed with psychotic features in partial remission. Anxiety disorder unspecified. Impulse control disorder unspecified. Plan: No change from initial note. Reduce Prozac from 80 mg a day to 60 mg a day. Start Wellbutrin XL 150 mg in the morning to augment the Prozac. Maintain Abilify, Seroquel, Klonopin, hydroxyzine, melatonin, and Depakote ER. Valproic acid level is therapeutic at 52. Assessment: Vital Signs/I&O: Vital Signs Date Time Temp Pulse Resp B/P (MAP) Pulse Ox O2 Delivery O2 Flow Rate FiO2 07/09/20 06:10 97.2 55 17 141/84 (103) 91 07/08/20 06:27 Room Air I & O 07/08/20 07/08/20 07/09/20 15:00 23:00 07:00 Intake Total 360 ml 360 ml Balance 360 ml 360 ml Current Medications: Meds: Current Medications Medications (Trade) Dose Ordered Sig/Indra Route PRN Reason Start Time Stop Time Status Last Admin Dose Admin Acetaminophen (Tylenol) 650 mg PRN Q6HRS PRN PO MILD PAIN / TEMP > 100.3'F 06/21/20 16:15 Multi-Ingredient Ointment (Analgesic [place]) 1 joesph PRN QID PRN TP MUSCLE PAIN 06/21/20 16:15 Al Hydroxide/Mg Hydroxide (Mylanta Plus Xs) 15 ml PRN AFTMEALHC PRN PO DYSPEPSIA 06/21/20 16:15 Magnesium Hydroxide (Milk Of Magnesia) 2,400 mg PRN QHS PRN PO CONSTIPATION 06/21/20 16:15 Acetaminophen (Tylenol) 500 mg PRN Q6HRS PRN PO pain or fever 06/21/20 16:30 UNV Albuterol Sulfate (Ventolin) 2.5 mg PRN Q4HRS PRN IH FOR ASTHMA 06/21/20 16:30 UNV Amlodipine Besylate (Norvasc) 5 mg DAILY PO 06/22/20 09:00 07/08/20 08:31 Aripiprazole (Abilify) 15 mg DAILY PO 06/22/20 09:00 07/08/20 04:24 Aspirin (Aspirin Enteric Coated) 81 mg DAILY PO 06/22/20 09:00 07/08/20 04:23 Atorvastatin Calcium (Lipitor) 20 mg QHS PO 06/21/20 21:00 07/08/20 20:46 Calcium/Vitamin D (Oscal D 500mg/ 200uts) 1 tab BID PO 06/21/20 21:00 07/08/20 20:45 Vitamin D (Vitamin D3) 50,000 unit WEEKLY PO 06/25/20 09:00 07/02/20 17:30 Clonazepam (KlonoPIN) 0.5 mg PRN BID PRN PO ANXIETY / AGITATION 06/21/20 16:30 07/09/20 03:23 Cyanocobalamin (Vitamin B-12) 1,000 mcg QMONTH IM 07/17/20 09:00 Diclofenac Sodium (Voltaren) 2 joesph QID TP 06/21/20 17:00 07/08/20 08:32 Docusate Sodium (Colace) 100 mg BID PO 06/21/20 21:00 07/08/20 20:46 Furosemide (Lasix) 20 mg DAILY16 PO 06/22/20 16:00 06/27/20 16:15 DC 06/26/20 15:52 Isosorbide Mononitrate (Imdur) 30 mg DAILY08 PO 06/22/20 08:00 07/08/20 08:30 Ketoconazole (Nizoral 2% Shampoo) 1 joesph PRN DAILY PRN TP DANDRUFF 06/21/20 16:30 Levothyroxine Sodium (Synthroid) 75 mcg DAILY06 PO 06/22/20 06:00 07/09/20 03:24 Metoprolol Tartrate (Lopressor) 12.5 mg BID PO 06/21/20 21:00 07/08/20 20:46 Pantoprazole Sodium (Protonix) 40 mg DAILY08 PO 06/22/20 08:00 07/08/20 04:24 Ropinirole HCl (Requip) 0.5 mg HS PO 06/21/20 21:00 07/08/20 20:46 Salsalate (Salsalate) 1,000 mg 2100 PO 06/21/20 21:00 07/08/20 20:47 Salsalate (Salsalate) 1,500 mg 0800 PO 06/22/20 08:00 07/08/20 08:32 Sennosides (Senna) 8.6 mg BID76 PO 06/21/20 18:00 06/23/20 05:00 DC 06/22/20 16:04 Tramadol HCl (Ultram) 50 mg PRN Q6HRS PRN PO MOD-SEV PAIN 06/21/20 16:30 07/08/20 08:31 Triamcinolone Acetonide (Kenalog) 1 joesph PRN Q12HR PRN TP ITCHING 06/21/20 16:30 Vitamin A/Vitamin D (Vitamin A & D Ointment) 1 joesph PRN Q1HR PRN TP DRY SKIN / SCALING 06/21/20 16:30 Multi-Ingred Cream/Lotion/Oil/ Oint (Hydrocerin) 1 joesph BID TP 06/21/20 21:00 07/08/20 20:47 Fluoxetine HCl (PROzac) 80 mg DAILY08 PO 06/22/20 08:00 07/08/20 18:05 DC 07/08/20 04:26 Non-Formulary Medication (Liraglutide (Saxenda)) 1.8 mg 0800 SQ 06/22/20 08:00 UNV Melatonin (Melatonin) 3 mg HS PO 06/21/20 21:00 07/08/20 20:46 Non-Formulary Medication (Olodaterol HCl (Striverdi Respimat)) 4 gm DAILY08 IH 06/22/20 08:00 UNV Potassium Chloride (Klor-Con) 10 meq TID PO 06/21/20 21:00 06/27/20 16:15 DC 06/27/20 13:12 Quetiapine Fumarate (SEROquel) 300 mg DAILY08 PO 06/22/20 08:00 07/08/20 04:27 Quetiapine Fumarate (SEROquel) 600 mg HS PO 06/21/20 21:00 07/08/20 20:45 Hydroxyzine HCl (Atarax) 25 mg TID PO 06/21/20 21:00 07/08/20 20:46 Albuterol Sulfate (Ventolin Hfa Inhaler) 2 puff PRN Q4HRS PRN INH SHORTNESS OF BREATH 06/21/20 17:15 Divalproex Sodium (Depakote Er) 500 mg QHS PO 06/21/20 21:00 06/24/20 17:35 DC 06/23/20 19:43 Divalproex Sodium (Depakote Er) 500 mg QHS PO 06/22/20 21:00 06/22/20 12:14 DC Sennosides (Senna) 8.6 mg BIDACBL PO 06/23/20 07:30 07/08/20 12:20 Divalproex Sodium (Depakote Er) 750 mg QHS PO 06/24/20 21:00 06/25/20 19:31 DC 06/24/20 21:05 Divalproex Sodium (Depakote Er) 500 mg QHS PO 06/25/20 21:00 07/08/20 20:46 Divalproex Sodium (Depakote Er) 250 mg QHS PO 06/25/20 21:00 07/08/20 20:46 Furosemide (Lasix) 60 mg 1X ONCE PO 06/26/20 21:15 06/26/20 22:10 DC 06/27/20 05:51 Furosemide (Lasix) 40 mg DAILY PO 06/27/20 16:15 07/08/20 08:29 Potassium Chloride (Klor-Con) 20 meq BID PO 06/27/20 21:00 07/08/20 20:47 Fluoxetine HCl (PROzac) 60 mg DAILY08 PO 07/09/20 08:00 Bupropion HCl (Wellbutrin Xl) 150 mg DAILY PO 07/09/20 09:00 I have reviewed the current psychotropics carefully including drug interactions. Risk benefit ratio favors no change other than as noted in my dictated progress note. Diagnosis: Problems: (1) Schizoaffective disorder, bipolar type (2) Impulse control disorder, unspecified (3) Anxiety disorder, unspecified (4) Bipolar disorder, current episode depressed, severe, with psychotic features MICHAEL CLARK MD July 09, 2020 07:56
[2020-07-09] MEDS: LIRAGLUTIDE 1.8 MG SQ SCH (08:00)
[2020-07-09] MEDS: NON FORMULARY ITEM (Olodaterol HCl (Striverdi Respimat) 4 GM) IH SCH (08:00)
[2020-07-09] MEDS: DICLOFENAC SODIUM 1% TOPICAL GEL 100GM TUBE. TP SCH ×4 (09:00→19:46)
[2020-07-09] MEDS: MINERAL OIL/PETROLATUM TOPICAL CREAM 113GM JAR. TP SCH ×2 (09:00→19:45)
[2020-07-09] MEDS: FUROSEMIDE 40 MG TABLET PO SCH (09:45)
[2020-07-09] MEDS: CALCIUM CARB/VIT D3 500/200 TABLET PO SCH ×2 (09:45→19:43)
[2020-07-09] MEDS: CHOLECALCIFEROL (VITAMIN D3) 50,000 UNIT CAPSULE PO SCH (09:45)
[2020-07-09] MEDS: METOPROLOL TART IMMED RELEASE 25 MG TABLET. PO SCH ×2 (09:45→19:45)
[2020-07-09] MEDS: amLODIPine BESYLATE 5 MG TABLET PO SCH (09:45)
[2020-07-09] MEDS: DOCUSATE SODIUM 100 MG CAPSULE PO SCH ×2 (09:46→19:45)
[2020-07-09] MEDS: POTASSIUM CHLORIDE 20 MEQ TABLET.ER. PO SCH ×2 (09:46→19:45)
[2020-07-09] MEDS: SALSALATE 500 MG PO SCH ×2 (09:46→19:44)
[2020-07-09] MEDS: ARIPiprazole 15 MG TABLET PO SCH (09:47)
[2020-07-09] MEDS: ASPIRIN ENTERIC COATED 81 MG TABLET.DR. PO SCH (09:47)
[2020-07-09] MEDS: SENNOSIDES 8.6 MG TABLET PO SCH ×2 (09:47→12:28)
[2020-07-09] MEDS: QUEtiapine 100 MG TABLET. PO SCH ×2 (09:47→19:44)
[2020-07-09] MEDS: hydrOXYzine HCL 25 MG TABLET PO SCH ×3 (09:47→19:44)
[2020-07-09] MEDS: FLUoxetine HCL 20 MG CAPSULE PO SCH (09:47)
[2020-07-09] MEDS: buPROPion XL 150 MG TAB.ER.24H PO SCH (09:47)
[2020-07-09] MEDS: PANTOPRAZOLE 40 MG TABLET. PO SCH (09:48)
[2020-07-09] MEDS: ISOSORBIDE MONONITRATE ER 30 MG TAB.ER.24H PO SCH (09:48)
[2020-07-09] MEDS: traMADol 50 MG TABLET PO PRN (10:00)
[2020-07-09 15:50] VITALS: BP 118/73
[2020-07-09] MEDS: DIVALPROEX ER 250 MG TAB.ER.24H. PO SCH (19:44)
[2020-07-09] MEDS: DIVALPROEX ER 500 MG TAB.ER.24H PO SCH (19:44)
[2020-07-09] MEDS: rOPINIRole 0.5 MG TABLET. PO SCH (19:44)
[2020-07-09] MEDS: ATORVASTATIN CALCIUM 20 MG TABLET PO SCH (19:45)
[2020-07-09] MEDS: MELATONIN 3 MG TABLET PO SCH (19:45)
--- NOTE | 2020-07-09 21:59 | PDOC ---
Exam Note: [place] Note: Please also refer to the separate dictated note~for this date of service dictated separately.~Patient seen individually. Discussed the patient with Nursing staff reviewed the chart.~Reviewed interim history and current functioning. Reviewed vital signs,~Labs/ Radiology~and current medications noted below. Continue current treatment with the changes noted in the dictated addendum note Assessment: Vital Signs/I&O: Vital Signs Date Time Temp Pulse Resp B/P (MAP) Pulse Ox O2 Delivery O2 Flow Rate FiO2 07/09/20 19:45 57 118/73 07/09/20 15:50 97.9 19 94 07/08/20 06:27 Room Air I & O 07/08/20 07/08/20 07/09/20 15:00 23:00 07:00 Intake Total 360 ml 360 ml Balance 360 ml 360 ml Current Medications: Meds: Current Medications Medications (Trade) Dose Ordered Sig/Indra Route PRN Reason Start Time Stop Time Status Last Admin Dose Admin Acetaminophen (Tylenol) 650 mg PRN Q6HRS PRN PO MILD PAIN / TEMP > 100.3'F 06/21/20 16:15 Multi-Ingredient Ointment (Analgesic [place]) 1 joesph PRN QID PRN TP MUSCLE PAIN 06/21/20 16:15 Al Hydroxide/Mg Hydroxide (Mylanta Plus Xs) 15 ml PRN AFTMEALHC PRN PO DYSPEPSIA 06/21/20 16:15 Magnesium Hydroxide (Milk Of Magnesia) 2,400 mg PRN QHS PRN PO CONSTIPATION 06/21/20 16:15 Acetaminophen (Tylenol) 500 mg PRN Q6HRS PRN PO pain or fever 06/21/20 16:30 UNV Albuterol Sulfate (Ventolin) 2.5 mg PRN Q4HRS PRN IH FOR ASTHMA 06/21/20 16:30 UNV Amlodipine Besylate (Norvasc) 5 mg DAILY PO 06/22/20 09:00 07/09/20 09:45 Aripiprazole (Abilify) 15 mg DAILY PO 06/22/20 09:00 07/09/20 09:47 Aspirin (Aspirin Enteric Coated) 81 mg DAILY PO 06/22/20 09:00 07/09/20 09:47 Atorvastatin Calcium (Lipitor) 20 mg QHS PO 06/21/20 21:00 07/09/20 19:45 Calcium/Vitamin D (Oscal D 500mg/ 200uts) 1 tab BID PO 06/21/20 21:00 07/09/20 19:43 Vitamin D (Vitamin D3) 50,000 unit WEEKLY PO 06/25/20 09:00 07/09/20 09:45 Clonazepam (KlonoPIN) 0.5 mg PRN BID PRN PO ANXIETY / AGITATION 06/21/20 16:30 07/09/20 19:44 Cyanocobalamin (Vitamin B-12) 1,000 mcg QMONTH IM 07/17/20 09:00 Diclofenac Sodium (Voltaren) 2 joesph QID TP 06/21/20 17:00 07/09/20 12:28 Docusate Sodium (Colace) 100 mg BID PO 06/21/20 21:00 07/09/20 19:45 Furosemide (Lasix) 20 mg DAILY16 PO 06/22/20 16:00 06/27/20 16:15 DC 06/26/20 15:52 Isosorbide Mononitrate (Imdur) 30 mg DAILY08 PO 06/22/20 08:00 07/09/20 09:48 Ketoconazole (Nizoral 2% Shampoo) 1 joesph PRN DAILY PRN TP DANDRUFF 06/21/20 16:30 Levothyroxine Sodium (Synthroid) 75 mcg DAILY06 PO 06/22/20 06:00 07/09/20 03:24 Metoprolol Tartrate (Lopressor) 12.5 mg BID PO 06/21/20 21:00 07/09/20 19:45 Pantoprazole Sodium (Protonix) 40 mg DAILY08 PO 06/22/20 08:00 07/09/20 09:48 Ropinirole HCl (Requip) 0.5 mg HS PO 06/21/20 21:00 07/09/20 19:44 Salsalate (Salsalate) 1,000 mg 2100 PO 06/21/20 21:00 07/09/20 19:44 Salsalate (Salsalate) 1,500 mg 0800 PO 06/22/20 08:00 07/09/20 09:46 Sennosides (Senna) 8.6 mg BID76 PO 06/21/20 18:00 06/23/20 05:00 DC 06/22/20 16:04 Tramadol HCl (Ultram) 50 mg PRN Q6HRS PRN PO MOD-SEV PAIN 06/21/20 16:30 07/09/20 10:00 Triamcinolone Acetonide (Kenalog) 1 joesph PRN Q12HR PRN TP ITCHING 06/21/20 16:30 Vitamin A/Vitamin D (Vitamin A & D Ointment) 1 joesph PRN Q1HR PRN TP DRY SKIN / SCALING 06/21/20 16:30 Multi-Ingred Cream/Lotion/Oil/ Oint (Hydrocerin) 1 joesph BID TP 06/21/20 21:00 07/08/20 20:47 Fluoxetine HCl (PROzac) 80 mg DAILY08 PO 06/22/20 08:00 07/08/20 18:05 DC 07/08/20 04:26 Non-Formulary Medication (Liraglutide (Saxenda)) 1.8 mg 0800 SQ 06/22/20 08:00 UNV Melatonin (Melatonin) 3 mg HS PO 06/21/20 21:00 07/09/20 19:45 Non-Formulary Medication (Olodaterol HCl (Striverdi Respimat)) 4 gm DAILY08 IH 06/22/20 08:00 UNV Potassium Chloride (Klor-Con) 10 meq TID PO 06/21/20 21:00 06/27/20 16:15 DC 06/27/20 13:12 Quetiapine Fumarate (SEROquel) 300 mg DAILY08 PO 06/22/20 08:00 07/09/20 09:47 Quetiapine Fumarate (SEROquel) 600 mg HS PO 06/21/20 21:00 07/09/20 19:44 Hydroxyzine HCl (Atarax) 25 mg TID PO 06/21/20 21:00 07/09/20 19:44 Albuterol Sulfate (Ventolin Hfa Inhaler) 2 puff PRN Q4HRS PRN INH SHORTNESS OF BREATH 06/21/20 17:15 Divalproex Sodium (Depakote Er) 500 mg QHS PO 06/21/20 21:00 06/24/20 17:35 DC 06/23/20 19:43 Divalproex Sodium (Depakote Er) 500 mg QHS PO 06/22/20 21:00 06/22/20 12:14 DC Sennosides (Senna) 8.6 mg BIDACBL PO 06/23/20 07:30 07/09/20 12:28 Divalproex Sodium (Depakote Er) 750 mg QHS PO 06/24/20 21:00 06/25/20 19:31 DC 06/24/20 21:05 Divalproex Sodium (Depakote Er) 500 mg QHS PO 06/25/20 21:00 07/09/20 19:44 Divalproex Sodium (Depakote Er) 250 mg QHS PO 06/25/20 21:00 07/09/20 19:44 Furosemide (Lasix) 60 mg 1X ONCE PO 06/26/20 21:15 06/26/20 22:10 DC 06/27/20 05:51 Furosemide (Lasix) 40 mg DAILY PO 06/27/20 16:15 07/09/20 09:45 Potassium Chloride (Klor-Con) 20 meq BID PO 06/27/20 21:00 07/09/20 19:45 Fluoxetine HCl (PROzac) 60 mg DAILY08 PO 07/09/20 08:00 07/09/20 09:47 Bupropion HCl (Wellbutrin Xl) 150 mg DAILY PO 07/09/20 09:00 07/09/20 09:47 Current Medications Medications (Trade) Dose Ordered Sig/Indra Route PRN Reason Start Time Stop Time Status Last Admin Dose Admin Fluoxetine HCl (PROzac) 60 mg DAILY08 PO 07/09/20 08:00 07/09/20 09:47 Bupropion HCl (Wellbutrin Xl) 150 mg DAILY PO 07/09/20 09:00 07/09/20 09:47 I have reviewed the current psychotropics carefully including drug interactions. Risk benefit ratio favors no change other than as noted in my dictated progress note. Diagnosis: Problems: (1) Schizoaffective disorder, bipolar type (2) Impulse control disorder, unspecified (3) Anxiety disorder, unspecified (4) Bipolar disorder, current episode depressed, severe, with psychotic features MICHAEL CLARK MD July 09, 2020 21:59
[2020-07-10] MEDS: clonazePAM 0.5 MG TABLET PO PRN ×2 (03:57→17:37)
[2020-07-10] MEDS: LEVOTHYROXINE 75 MCG TABLET PO SCH (04:01)
[2020-07-10 04:06] VITALS: BP 118/57
[2020-07-10] MEDS: traMADol 50 MG TABLET PO PRN ×2 (05:32→19:52)
[2020-07-10] MEDS: NON FORMULARY ITEM (Olodaterol HCl (Striverdi Respimat) 4 GM) IH SCH (08:00)
[2020-07-10] MEDS: LIRAGLUTIDE 1.8 MG SQ SCH (08:00)
[2020-07-10] MEDS: DICLOFENAC SODIUM 1% TOPICAL GEL 100GM TUBE. TP SCH ×4 (09:00→19:54)
[2020-07-10] MEDS: MINERAL OIL/PETROLATUM TOPICAL CREAM 113GM JAR. TP SCH ×2 (09:00→19:54)
[2020-07-10] MEDS: ARIPiprazole 15 MG TABLET PO SCH (09:09)
[2020-07-10] MEDS: FLUoxetine HCL 20 MG CAPSULE PO SCH (09:09)
[2020-07-10] MEDS: CALCIUM CARB/VIT D3 500/200 TABLET PO SCH ×2 (09:09→19:50)
[2020-07-10] MEDS: DOCUSATE SODIUM 100 MG CAPSULE PO SCH ×2 (09:10→19:51)
[2020-07-10] MEDS: buPROPion XL 150 MG TAB.ER.24H PO SCH (09:10)
[2020-07-10] MEDS: QUEtiapine 100 MG TABLET. PO SCH ×2 (09:10→19:50)
[2020-07-10] MEDS: ASPIRIN ENTERIC COATED 81 MG TABLET.DR. PO SCH (09:10)
[2020-07-10] MEDS: FUROSEMIDE 40 MG TABLET PO SCH (09:11)
[2020-07-10] MEDS: PANTOPRAZOLE 40 MG TABLET. PO SCH (09:11)
[2020-07-10] MEDS: POTASSIUM CHLORIDE 20 MEQ TABLET.ER. PO SCH ×2 (09:11→19:51)
[2020-07-10] MEDS: hydrOXYzine HCL 25 MG TABLET PO SCH ×3 (09:11→19:51)
[2020-07-10] MEDS: SENNOSIDES 8.6 MG TABLET PO SCH ×2 (09:11→12:24)
[2020-07-10] MEDS: SALSALATE 500 MG PO SCH ×2 (09:12→19:51)
[2020-07-10] MEDS: ISOSORBIDE MONONITRATE ER 30 MG TAB.ER.24H PO SCH (09:48)
[2020-07-10] MEDS: amLODIPine BESYLATE 5 MG TABLET PO SCH (09:49)
[2020-07-10] MEDS: METOPROLOL TART IMMED RELEASE 25 MG TABLET. PO SCH ×2 (09:49→19:52)
[2020-07-10 15:31] VITALS: BP 124/77
[2020-07-10] MEDS: DIVALPROEX ER 250 MG TAB.ER.24H. PO SCH (19:50)
[2020-07-10] MEDS: MELATONIN 3 MG TABLET PO SCH (19:50)
[2020-07-10] MEDS: DIVALPROEX ER 500 MG TAB.ER.24H PO SCH (19:51)
[2020-07-10] MEDS: ATORVASTATIN CALCIUM 20 MG TABLET PO SCH (19:51)
[2020-07-10] MEDS: rOPINIRole 0.5 MG TABLET. PO SCH (19:51)
--- NOTE | 2020-07-10 22:48 | PDOC ---
Exam Note: [place] Note: Please also refer to the separate dictated note~for this date of service dictated separately.~Patient seen individually. Discussed the patient with Nursing staff reviewed the chart.~Reviewed interim history and current functioning. Reviewed vital signs,~Labs/ Radiology~and current medications noted below. Continue current treatment with the changes noted in the dictated addendum note Assessment: Vital Signs/I&O: Vital Signs Date Time Temp Pulse Resp B/P (MAP) Pulse Ox O2 Delivery O2 Flow Rate FiO2 07/10/20 20:22 92 07/10/20 19:52 63 124/77 07/10/20 15:31 97.6 18 07/08/20 06:27 Room Air I & O 07/09/20 07/09/20 07/10/20 15:00 23:00 07:00 Intake Total 240 ml 120 ml Balance 240 ml 120 ml Current Medications: Meds: Current Medications Medications (Trade) Dose Ordered Sig/Indra Route PRN Reason Start Time Stop Time Status Last Admin Dose Admin Acetaminophen (Tylenol) 650 mg PRN Q6HRS PRN PO MILD PAIN / TEMP > 100.3'F 06/21/20 16:15 Multi-Ingredient Ointment (Analgesic [place]) 1 joesph PRN QID PRN TP MUSCLE PAIN 06/21/20 16:15 Al Hydroxide/Mg Hydroxide (Mylanta Plus Xs) 15 ml PRN AFTMEALHC PRN PO DYSPEPSIA 06/21/20 16:15 Magnesium Hydroxide (Milk Of Magnesia) 2,400 mg PRN QHS PRN PO CONSTIPATION 06/21/20 16:15 Acetaminophen (Tylenol) 500 mg PRN Q6HRS PRN PO pain or fever 06/21/20 16:30 UNV Albuterol Sulfate (Ventolin) 2.5 mg PRN Q4HRS PRN IH FOR ASTHMA 06/21/20 16:30 UNV Amlodipine Besylate (Norvasc) 5 mg DAILY PO 06/22/20 09:00 07/10/20 09:49 Aripiprazole (Abilify) 15 mg DAILY PO 06/22/20 09:00 07/10/20 09:09 Aspirin (Aspirin Enteric Coated) 81 mg DAILY PO 06/22/20 09:00 07/10/20 09:10 Atorvastatin Calcium (Lipitor) 20 mg QHS PO 06/21/20 21:00 07/10/20 19:51 Calcium/Vitamin D (Oscal D 500mg/ 200uts) 1 tab BID PO 06/21/20 21:00 07/10/20 19:50 Vitamin D (Vitamin D3) 50,000 unit WEEKLY PO 06/25/20 09:00 07/09/20 09:45 Clonazepam (KlonoPIN) 0.5 mg PRN BID PRN PO ANXIETY / AGITATION 06/21/20 16:30 07/10/20 17:37 Cyanocobalamin (Vitamin B-12) 1,000 mcg QMONTH IM 07/17/20 09:00 Diclofenac Sodium (Voltaren) 2 joesph QID TP 06/21/20 17:00 07/10/20 17:00 Docusate Sodium (Colace) 100 mg BID PO 06/21/20 21:00 07/10/20 19:51 Furosemide (Lasix) 20 mg DAILY16 PO 06/22/20 16:00 06/27/20 16:15 DC 06/26/20 15:52 Isosorbide Mononitrate (Imdur) 30 mg DAILY08 PO 06/22/20 08:00 07/10/20 09:48 Ketoconazole (Nizoral 2% Shampoo) 1 joesph PRN DAILY PRN TP DANDRUFF 06/21/20 16:30 Levothyroxine Sodium (Synthroid) 75 mcg DAILY06 PO 06/22/20 06:00 07/10/20 04:01 Metoprolol Tartrate (Lopressor) 12.5 mg BID PO 06/21/20 21:00 07/10/20 19:52 Pantoprazole Sodium (Protonix) 40 mg DAILY08 PO 06/22/20 08:00 07/10/20 09:11 Ropinirole HCl (Requip) 0.5 mg HS PO 06/21/20 21:00 07/10/20 19:51 Salsalate (Salsalate) 1,000 mg 2100 PO 06/21/20 21:00 07/10/20 19:51 Salsalate (Salsalate) 1,500 mg 0800 PO 06/22/20 08:00 07/10/20 09:12 Sennosides (Senna) 8.6 mg BID76 PO 06/21/20 18:00 06/23/20 05:00 DC 06/22/20 16:04 Tramadol HCl (Ultram) 50 mg PRN Q6HRS PRN PO MOD-SEV PAIN 06/21/20 16:30 07/10/20 19:52 Triamcinolone Acetonide (Kenalog) 1 joesph PRN Q12HR PRN TP ITCHING 06/21/20 16:30 Vitamin A/Vitamin D (Vitamin A & D Ointment) 1 joesph PRN Q1HR PRN TP DRY SKIN / SCALING 06/21/20 16:30 Multi-Ingred Cream/Lotion/Oil/ Oint (Hydrocerin) 1 joesph BID TP 06/21/20 21:00 07/10/20 09:00 Fluoxetine HCl (PROzac) 80 mg DAILY08 PO 06/22/20 08:00 07/08/20 18:05 DC 07/08/20 04:26 Non-Formulary Medication (Liraglutide (Saxenda)) 1.8 mg 0800 SQ 06/22/20 08:00 UNV Melatonin (Melatonin) 3 mg HS PO 06/21/20 21:00 07/10/20 19:50 Non-Formulary Medication (Olodaterol HCl (Striverdi Respimat)) 4 gm DAILY08 IH 06/22/20 08:00 UNV Potassium Chloride (Klor-Con) 10 meq TID PO 06/21/20 21:00 06/27/20 16:15 DC 06/27/20 13:12 Quetiapine Fumarate (SEROquel) 300 mg DAILY08 PO 06/22/20 08:00 07/10/20 09:10 Quetiapine Fumarate (SEROquel) 600 mg HS PO 06/21/20 21:00 07/10/20 19:50 Hydroxyzine HCl (Atarax) 25 mg TID PO 06/21/20 21:00 07/10/20 19:51 Albuterol Sulfate (Ventolin Hfa Inhaler) 2 puff PRN Q4HRS PRN INH SHORTNESS OF BREATH 06/21/20 17:15 Divalproex Sodium (Depakote Er) 500 mg QHS PO 06/21/20 21:00 06/24/20 17:35 DC 06/23/20 19:43 Divalproex Sodium (Depakote Er) 500 mg QHS PO 06/22/20 21:00 06/22/20 12:14 DC Sennosides (Senna) 8.6 mg [id number] PO 06/23/20 07:30 07/10/20 12:24 Divalproex Sodium (Depakote Er) 750 mg QHS PO 06/24/20 21:00 06/25/20 19:31 DC 06/24/20 21:05 Divalproex Sodium (Depakote Er) 500 mg QHS PO 06/25/20 21:00 07/10/20 19:51 Divalproex Sodium (Depakote Er) 250 mg QHS PO 06/25/20 21:00 07/10/20 19:50 Furosemide (Lasix) 60 mg 1X ONCE PO 06/26/20 21:15 06/26/20 22:10 DC 06/27/20 05:51 Furosemide (Lasix) 40 mg DAILY PO 06/27/20 16:15 07/10/20 09:11 Potassium Chloride (Klor-Con) 20 meq BID PO 06/27/20 21:00 07/10/20 19:51 Fluoxetine HCl (PROzac) 60 mg DAILY08 PO 07/09/20 08:00 07/10/20 20:09 DC 07/10/20 09:09 Bupropion HCl (Wellbutrin Xl) 150 mg DAILY PO 07/09/20 09:00 07/10/20 20:09 DC 07/10/20 09:10 Olanzapine (ZyPREXA ZYDIS) 2.5 mg PRN Q2HR PRN PO PSYCHOSIS 07/10/20 20:00 07/10/20 20:05 Fluoxetine HCl (PROzac) 80 mg DAILY PO 07/11/20 08:00 Current Medications Medications (Trade) Dose Ordered Sig/Indra Route PRN Reason Start Time Stop Time Status Last Admin Dose Admin Olanzapine (ZyPREXA ZYDIS) 2.5 mg PRN Q2HR PRN PO PSYCHOSIS 07/10/20 20:00 07/10/20 20:05 I have reviewed the current psychotropics carefully including drug interactions. Risk benefit ratio favors no change other than as noted in my dictated progress note. Diagnosis: Problems: (1) Schizoaffective disorder, bipolar type (2) Impulse control disorder, unspecified (3) Anxiety disorder, unspecified (4) Bipolar disorder, current episode depressed, severe, with psychotic features MICHAEL CLARK MD July 10, 2020 22:48
[2020-07-11] MEDS: LEVOTHYROXINE 75 MCG TABLET PO SCH (05:21)
[2020-07-11] MEDS: clonazePAM 0.5 MG TABLET PO PRN (05:21)
[2020-07-11 06:27] VITALS: BP 112/55
--- NOTE | 2020-07-11 07:58 | PDOC ---
Exam Note: [place] Note: This note is a late entry for 07/09/2020 covers elements not covered in my initial note. Subjective: The patient was seen individually in the evening of 07/09/2020 with Niesha WOMACK, discussed and reviewed the chart. The patient slept 3-1/4 hours previous night. She had a very difficult morning. She was banging on the glass, screams at the nursing counter, angry at power of garnishment specialist for not having her in a placement. She was hitting herself on the face, extremely agitated, talking about sticking her head in fire. She received Klonopin at 3.30 a.m., and tramadol with a.m. medications. We have reduced the Prozac and added Wellbutrin and we will monitor to make sure this is not worsening her agitation. Review of Systems: Ambulation impaired in wheelchair. No CV, , eye, ENT system symptoms on review. Mental Status Exam: The patient is oriented to herself and situation. Speech coherent, has some latency. Abstraction fair. Computation impaired. Language function intact. Mood and affect depressed, labile. Laboratory Data: Reviewed. Impression: Schizoaffective disorder, bipolar type, mixed with psychotic features in partial remission. Anxiety disorder unspecified. Impulse control disorder unspecified. Plan: No change from initial note. Valproic acid level is therapeutic. Assessment: Vital Signs/I&O: Vital Signs Date Time Temp Pulse Resp B/P (MAP) Pulse Ox O2 Delivery O2 Flow Rate FiO2 07/11/20 06:27 97.2 67 16 112/55 (74) 91 07/08/20 06:27 Room Air I & O 07/10/20 07/10/20 07/11/20 15:00 23:00 07:00 Intake Total 720 ml 360 ml 120 ml Balance 720 ml 360 ml 120 ml Current Medications: Meds: Current Medications Medications (Trade) Dose Ordered Sig/Indra Route PRN Reason Start Time Stop Time Status Last Admin Dose Admin Acetaminophen (Tylenol) 650 mg PRN Q6HRS PRN PO MILD PAIN / TEMP > 100.3'F 06/21/20 16:15 Multi-Ingredient Ointment (Analgesic [place]) 1 joesph PRN QID PRN TP MUSCLE PAIN 06/21/20 16:15 Al Hydroxide/Mg Hydroxide (Mylanta Plus Xs) 15 ml PRN AFTMEALHC PRN PO DYSPEPSIA 06/21/20 16:15 Magnesium Hydroxide (Milk Of Magnesia) 2,400 mg PRN QHS PRN PO CONSTIPATION 06/21/20 16:15 Acetaminophen (Tylenol) 500 mg PRN Q6HRS PRN PO pain or fever 06/21/20 16:30 UNV Albuterol Sulfate (Ventolin) 2.5 mg PRN Q4HRS PRN IH FOR ASTHMA 06/21/20 16:30 UNV Amlodipine Besylate (Norvasc) 5 mg DAILY PO 06/22/20 09:00 07/10/20 09:49 Aripiprazole (Abilify) 15 mg DAILY PO 06/22/20 09:00 07/10/20 09:09 Aspirin (Aspirin Enteric Coated) 81 mg DAILY PO 06/22/20 09:00 07/10/20 09:10 Atorvastatin Calcium (Lipitor) 20 mg QHS PO 06/21/20 21:00 07/10/20 19:51 Calcium/Vitamin D (Oscal D 500mg/ 200uts) 1 tab BID PO 06/21/20 21:00 07/10/20 19:50 Vitamin D (Vitamin D3) 50,000 unit WEEKLY PO 06/25/20 09:00 07/09/20 09:45 Clonazepam (KlonoPIN) 0.5 mg PRN BID PRN PO ANXIETY / AGITATION 06/21/20 16:30 07/11/20 05:21 Cyanocobalamin (Vitamin B-12) 1,000 mcg QMONTH IM 07/17/20 09:00 Diclofenac Sodium (Voltaren) 2 joesph QID TP 06/21/20 17:00 07/10/20 17:00 Docusate Sodium (Colace) 100 mg BID PO 06/21/20 21:00 07/10/20 19:51 Furosemide (Lasix) 20 mg DAILY16 PO 06/22/20 16:00 06/27/20 16:15 DC 06/26/20 15:52 Isosorbide Mononitrate (Imdur) 30 mg DAILY08 PO 06/22/20 08:00 07/10/20 09:48 Ketoconazole (Nizoral 2% Shampoo) 1 joesph PRN DAILY PRN TP DANDRUFF 06/21/20 16:30 Levothyroxine Sodium (Synthroid) 75 mcg DAILY06 PO 06/22/20 06:00 07/11/20 05:21 Metoprolol Tartrate (Lopressor) 12.5 mg BID PO 06/21/20 21:00 07/10/20 19:52 Pantoprazole Sodium (Protonix) 40 mg DAILY08 PO 06/22/20 08:00 07/10/20 09:11 Ropinirole HCl (Requip) 0.5 mg HS PO 06/21/20 21:00 07/10/20 19:51 Salsalate (Salsalate) 1,000 mg 2100 PO 06/21/20 21:00 07/10/20 19:51 Salsalate (Salsalate) 1,500 mg 0800 PO 06/22/20 08:00 07/10/20 09:12 Sennosides (Senna) 8.6 mg BID76 PO 06/21/20 18:00 06/23/20 05:00 DC 06/22/20 16:04 Tramadol HCl (Ultram) 50 mg PRN Q6HRS PRN PO MOD-SEV PAIN 06/21/20 16:30 07/10/20 19:52 Triamcinolone Acetonide (Kenalog) 1 joesph PRN Q12HR PRN TP ITCHING 06/21/20 16:30 Vitamin A/Vitamin D (Vitamin A & D Ointment) 1 joesph PRN Q1HR PRN TP DRY SKIN / SCALING 06/21/20 16:30 Multi-Ingred Cream/Lotion/Oil/ Oint (Hydrocerin) 1 joesph BID TP 06/21/20 21:00 07/10/20 09:00 Fluoxetine HCl (PROzac) 80 mg DAILY08 PO 06/22/20 08:00 07/08/20 18:05 DC 07/08/20 04:26 Non-Formulary Medication (Liraglutide (Saxenda)) 1.8 mg 0800 SQ 06/22/20 08:00 UNV Melatonin (Melatonin) 3 mg HS PO 06/21/20 21:00 07/10/20 19:50 Non-Formulary Medication (Olodaterol HCl (Striverdi Respimat)) 4 gm DAILY08 IH 06/22/20 08:00 UNV Potassium Chloride (Klor-Con) 10 meq TID PO 06/21/20 21:00 06/27/20 16:15 DC 06/27/20 13:12 Quetiapine Fumarate (SEROquel) 300 mg DAILY08 PO 06/22/20 08:00 07/10/20 09:10 Quetiapine Fumarate (SEROquel) 600 mg HS PO 06/21/20 21:00 07/10/20 19:50 Hydroxyzine HCl (Atarax) 25 mg TID PO 06/21/20 21:00 07/10/20 19:51 Albuterol Sulfate (Ventolin Hfa Inhaler) 2 puff PRN Q4HRS PRN INH SHORTNESS OF BREATH 06/21/20 17:15 Divalproex Sodium (Depakote Er) 500 mg QHS PO 06/21/20 21:00 06/24/20 17:35 DC 06/23/20 19:43 Divalproex Sodium (Depakote Er) 500 mg QHS PO 06/22/20 21:00 06/22/20 12:14 DC Sennosides (Senna) 8.6 mg BIDACBL PO 06/23/20 07:30 07/10/20 12:24 Divalproex Sodium (Depakote Er) 750 mg QHS PO 06/24/20 21:00 06/25/20 19:31 DC 06/24/20 21:05 Divalproex Sodium (Depakote Er) 500 mg QHS PO 06/25/20 21:00 07/10/20 19:51 Divalproex Sodium (Depakote Er) 250 mg QHS PO 06/25/20 21:00 07/10/20 19:50 Furosemide (Lasix) 60 mg 1X ONCE PO 06/26/20 21:15 06/26/20 22:10 DC 06/27/20 05:51 Furosemide (Lasix) 40 mg DAILY PO 06/27/20 16:15 07/10/20 09:11 Potassium Chloride (Klor-Con) 20 meq BID PO 06/27/20 21:00 07/10/20 19:51 Fluoxetine HCl (PROzac) 60 mg DAILY08 PO 07/09/20 08:00 07/10/20 20:09 DC 07/10/20 09:09 Bupropion HCl (Wellbutrin Xl) 150 mg DAILY PO 07/09/20 09:00 07/10/20 20:09 DC 07/10/20 09:10 Olanzapine (ZyPREXA ZYDIS) 2.5 mg PRN Q2HR PRN PO PSYCHOSIS 07/10/20 20:00 07/10/20 20:05 Fluoxetine HCl (PROzac) 80 mg DAILY PO 07/11/20 08:00 Current Medications Medications (Trade) Dose Ordered Sig/Indra Route PRN Reason Start Time Stop Time Status Last Admin Dose Admin Olanzapine (ZyPREXA ZYDIS) 2.5 mg PRN Q2HR PRN PO PSYCHOSIS 07/10/20 20:00 07/10/20 20:05 I have reviewed the current psychotropics carefully including drug interactions. Risk benefit ratio favors no change other than as noted in my dictated progress note. Diagnosis: Problems: (1) Schizoaffective disorder, bipolar type (2) Impulse control disorder, unspecified (3) Anxiety disorder, unspecified (4) Bipolar disorder, current episode depressed, severe, with psychotic features MICHAEL CLARK MD July 11, 2020 07:58
[2020-07-11] MEDS: LIRAGLUTIDE 1.8 MG SQ SCH (08:00)
[2020-07-11] MEDS: NON FORMULARY ITEM (Olodaterol HCl (Striverdi Respimat) 4 GM) IH SCH (08:00)
[2020-07-11] MEDS: hydrOXYzine HCL 25 MG TABLET PO SCH ×3 (08:47→21:09)
[2020-07-11] MEDS: SENNOSIDES 8.6 MG TABLET PO SCH ×2 (08:47→13:18)
[2020-07-11] MEDS: FUROSEMIDE 40 MG TABLET PO SCH (08:47)
[2020-07-11] MEDS: ISOSORBIDE MONONITRATE ER 30 MG TAB.ER.24H PO SCH (08:47)
[2020-07-11] MEDS: PANTOPRAZOLE 40 MG TABLET. PO SCH (08:48)
[2020-07-11] MEDS: POTASSIUM CHLORIDE 20 MEQ TABLET.ER. PO SCH ×2 (08:48→21:08)
[2020-07-11] MEDS: ARIPiprazole 15 MG TABLET PO SCH (08:48)
[2020-07-11] MEDS: amLODIPine BESYLATE 5 MG TABLET PO SCH (08:48)
[2020-07-11] MEDS: ASPIRIN ENTERIC COATED 81 MG TABLET.DR. PO SCH (08:48)
[2020-07-11] MEDS: DOCUSATE SODIUM 100 MG CAPSULE PO SCH ×2 (08:48→21:08)
[2020-07-11] MEDS: CALCIUM CARB/VIT D3 500/200 TABLET PO SCH ×2 (08:48→21:07)
[2020-07-11] MEDS: SALSALATE 500 MG PO SCH ×2 (08:49→21:07)
[2020-07-11] MEDS: FLUoxetine HCL 20 MG CAPSULE PO SCH ×2 (08:49→09:00)
[2020-07-11] MEDS: QUEtiapine 100 MG TABLET. PO SCH ×2 (08:49→21:06)
[2020-07-11] MEDS: METOPROLOL TART IMMED RELEASE 25 MG TABLET. PO SCH ×2 (08:50→21:07)
[2020-07-11] MEDS: DICLOFENAC SODIUM 1% TOPICAL GEL 100GM TUBE. TP SCH ×4 (09:00→21:00)
[2020-07-11] MEDS: MINERAL OIL/PETROLATUM TOPICAL CREAM 113GM JAR. TP SCH ×2 (09:00→21:00)
[2020-07-11 16:14] VITALS: BP 121/80
[2020-07-11] MEDS: MELATONIN 3 MG TABLET PO SCH (21:06)
[2020-07-11] MEDS: rOPINIRole 0.5 MG TABLET. PO SCH (21:06)
[2020-07-11] MEDS: DIVALPROEX ER 500 MG TAB.ER.24H PO SCH (21:07)
[2020-07-11] MEDS: DIVALPROEX ER 250 MG TAB.ER.24H. PO SCH (21:07)
[2020-07-11] MEDS: ATORVASTATIN CALCIUM 20 MG TABLET PO SCH (21:10)
--- NOTE | 2020-07-11 22:00 | PDOC ---
Exam Note: [place] Note: Please also refer to the separate dictated note~for this date of service dictated separately.~Patient seen individually. Discussed the patient with Nursing staff reviewed the chart.~Reviewed interim history and current functioning. Reviewed vital signs,~Labs/ Radiology~and current medications noted below. Continue current treatment with the changes noted in the dictated addendum note Assessment: Vital Signs/I&O: Vital Signs Date Time Temp Pulse Resp B/P (MAP) Pulse Ox O2 Delivery O2 Flow Rate FiO2 07/11/20 21:07 72 121/80 07/11/20 16:14 98.2 19 95 Room Air I & O 07/10/20 07/10/20 07/11/20 15:00 23:00 07:00 Intake Total 720 ml 360 ml 120 ml Balance 720 ml 360 ml 120 ml Current Medications: Meds: Current Medications Medications (Trade) Dose Ordered Sig/Indra Route PRN Reason Start Time Stop Time Status Last Admin Dose Admin Acetaminophen (Tylenol) 650 mg PRN Q6HRS PRN PO MILD PAIN / TEMP > 100.3'F 06/21/20 16:15 Multi-Ingredient Ointment (Analgesic [place]) 1 joesph PRN QID PRN TP MUSCLE PAIN 06/21/20 16:15 Al Hydroxide/Mg Hydroxide (Mylanta Plus Xs) 15 ml PRN AFTMEALHC PRN PO DYSPEPSIA 06/21/20 16:15 Magnesium Hydroxide (Milk Of Magnesia) 2,400 mg PRN QHS PRN PO CONSTIPATION 06/21/20 16:15 Acetaminophen (Tylenol) 500 mg PRN Q6HRS PRN PO pain or fever 06/21/20 16:30 UNV Albuterol Sulfate (Ventolin) 2.5 mg PRN Q4HRS PRN IH FOR ASTHMA 06/21/20 16:30 UNV Amlodipine Besylate (Norvasc) 5 mg DAILY PO 06/22/20 09:00 07/11/20 08:48 Aripiprazole (Abilify) 15 mg DAILY PO 06/22/20 09:00 07/11/20 08:48 Aspirin (Aspirin Enteric Coated) 81 mg DAILY PO 06/22/20 09:00 07/11/20 08:48 Atorvastatin Calcium (Lipitor) 20 mg QHS PO 06/21/20 21:00 07/11/20 21:10 Calcium/Vitamin D (Oscal D 500mg/ 200uts) 1 tab BID PO 06/21/20 21:00 07/11/20 21:07 Vitamin D (Vitamin D3) 50,000 unit WEEKLY PO 06/25/20 09:00 07/09/20 09:45 Clonazepam (KlonoPIN) 0.5 mg PRN BID PRN PO ANXIETY / AGITATION 06/21/20 16:30 07/11/20 05:21 Cyanocobalamin (Vitamin B-12) 1,000 mcg QMONTH IM 07/17/20 09:00 Diclofenac Sodium (Voltaren) 2 joesph QID TP 06/21/20 17:00 07/11/20 21:00 Docusate Sodium (Colace) 100 mg BID PO 06/21/20 21:00 07/11/20 21:08 Furosemide (Lasix) 20 mg DAILY16 PO 06/22/20 16:00 06/27/20 16:15 DC 06/26/20 15:52 Isosorbide Mononitrate (Imdur) 30 mg DAILY08 PO 06/22/20 08:00 07/11/20 08:47 Ketoconazole (Nizoral 2% Shampoo) 1 joesph PRN DAILY PRN TP DANDRUFF 06/21/20 16:30 Levothyroxine Sodium (Synthroid) 75 mcg DAILY06 PO 06/22/20 06:00 07/11/20 05:21 Metoprolol Tartrate (Lopressor) 12.5 mg BID PO 06/21/20 21:00 07/11/20 21:07 Pantoprazole Sodium (Protonix) 40 mg DAILY08 PO 06/22/20 08:00 07/11/20 08:48 Ropinirole HCl (Requip) 0.5 mg HS PO 06/21/20 21:00 07/11/20 21:06 Salsalate (Salsalate) 1,000 mg 2100 PO 06/21/20 21:00 07/11/20 21:07 Salsalate (Salsalate) 1,500 mg 0800 PO 06/22/20 08:00 07/11/20 08:49 Sennosides (Senna) 8.6 mg BID76 PO 06/21/20 18:00 06/23/20 05:00 DC 06/22/20 16:04 Tramadol HCl (Ultram) 50 mg PRN Q6HRS PRN PO MOD-SEV PAIN 06/21/20 16:30 07/10/20 19:52 Triamcinolone Acetonide (Kenalog) 1 joesph PRN Q12HR PRN TP ITCHING 06/21/20 16:30 Vitamin A/Vitamin D (Vitamin A & D Ointment) 1 joesph PRN Q1HR PRN TP DRY SKIN / SCALING 06/21/20 16:30 Multi-Ingred Cream/Lotion/Oil/ Oint (Hydrocerin) 1 joesph BID TP 06/21/20 21:00 07/11/20 21:00 Fluoxetine HCl (PROzac) 80 mg DAILY08 PO 06/22/20 08:00 07/08/20 18:05 DC 07/08/20 04:26 Non-Formulary Medication (Liraglutide (Saxenda)) 1.8 mg 0800 SQ 06/22/20 08:00 UNV Melatonin (Melatonin) 3 mg HS PO 06/21/20 21:00 07/11/20 21:06 Non-Formulary Medication (Olodaterol HCl (Striverdi Respimat)) 4 gm DAILY08 IH 06/22/20 08:00 UNV Potassium Chloride (Klor-Con) 10 meq TID PO 06/21/20 21:00 06/27/20 16:15 DC 06/27/20 13:12 Quetiapine Fumarate (SEROquel) 300 mg DAILY08 PO 06/22/20 08:00 07/11/20 08:49 Quetiapine Fumarate (SEROquel) 600 mg HS PO 06/21/20 21:00 07/11/20 21:06 Hydroxyzine HCl (Atarax) 25 mg TID PO 06/21/20 21:00 07/11/20 21:09 Albuterol Sulfate (Ventolin Hfa Inhaler) 2 puff PRN Q4HRS PRN INH SHORTNESS OF BREATH 06/21/20 17:15 Divalproex Sodium (Depakote Er) 500 mg QHS PO 06/21/20 21:00 06/24/20 17:35 DC 06/23/20 19:43 Divalproex Sodium (Depakote Er) 500 mg QHS PO 06/22/20 21:00 06/22/20 12:14 DC Sennosides (Senna) 8.6 mg BIDACBL PO 06/23/20 07:30 07/11/20 13:18 Divalproex Sodium (Depakote Er) 750 mg QHS PO 06/24/20 21:00 06/25/20 19:31 DC 06/24/20 21:05 Divalproex Sodium (Depakote Er) 500 mg QHS PO 06/25/20 21:00 07/11/20 21:07 Divalproex Sodium (Depakote Er) 250 mg QHS PO 06/25/20 21:00 07/11/20 21:07 Furosemide (Lasix) 60 mg 1X ONCE PO 06/26/20 21:15 06/26/20 22:10 DC 06/27/20 05:51 Furosemide (Lasix) 40 mg DAILY PO 06/27/20 16:15 07/11/20 08:47 Potassium Chloride (Klor-Con) 20 meq BID PO 06/27/20 21:00 07/11/20 21:08 Fluoxetine HCl (PROzac) 60 mg DAILY08 PO 07/09/20 08:00 07/10/20 20:09 DC 07/10/20 09:09 Bupropion HCl (Wellbutrin Xl) 150 mg DAILY PO 07/09/20 09:00 07/10/20 20:09 DC 07/10/20 09:10 Olanzapine (ZyPREXA ZYDIS) 2.5 mg PRN Q2HR PRN PO PSYCHOSIS 07/10/20 20:00 07/10/20 20:05 Fluoxetine HCl (PROzac) 80 mg DAILY PO 07/11/20 08:00 07/11/20 08:49 Current Medications Medications (Trade) Dose Ordered Sig/Indra Route PRN Reason Start Time Stop Time Status Last Admin Dose Admin Fluoxetine HCl (PROzac) 80 mg DAILY PO 07/11/20 08:00 07/11/20 08:49 I have reviewed the current psychotropics carefully including drug interactions. Risk benefit ratio favors no change other than as noted in my dictated progress note. Diagnosis: Problems: (1) Schizoaffective disorder, bipolar type (2) Impulse control disorder, unspecified (3) Anxiety disorder, unspecified (4) Bipolar disorder, current episode depressed, severe, with psychotic features MICHAEL CLARK MD July 11, 2020 22:00
[2020-07-12] MEDS: clonazePAM 0.5 MG TABLET PO PRN (02:55)
[2020-07-12] MEDS: LEVOTHYROXINE 75 MCG TABLET PO SCH (02:55)
[2020-07-12 06:50] VITALS: BP 105/53
--- NOTE | 2020-07-12 07:18 | PDOC ---
Exam Note: [place] Note: This note is a late entry for 07/10/2020 covers elements not covered in my initial note. Subjective: The patient was seen individually in the evening of 07/10/2020 with Manny WOMACK, discussed and reviewed the chart. The patient slept 6 hours previous night. She remains anxious, restless, spends much time in her room. She is wanting to be discharged and she is addressing this with social service staff. She received p.r.n. Klonopin x1 for this. Review of Systems: Ambulation impaired in wheelchair. No CV, , eye, ENT system symptoms on review. Mental Status Exam: The patient is oriented to herself and situation. Speech coherent, has some latency. Abstraction fair. Computation impaired. Language function intact. Mood and affect depressed, labile. Laboratory Data: Reviewed. Impression: Schizoaffective disorder, bipolar type, mixed with psychotic features in partial remission. Anxiety disorder unspecified. Impulse control disorder unspecified. Plan: No change from initial note. After I had completed my rounds, Wendy WOMACK discussed the patient with me. The patient had some increased irritability since we reduced the Prozac from 80 mg a day to 60 mg a day and added Wellbutrin XL 150 mg a day. We have given it about 48 hours with this combination hoping the antidepressant effect would help her irritability. Nevertheless her irritability is worse with worsening mood lability and we will go ahead and reverse the changes. Stop the Wellbutrin. Increase the Prozac back to 80 mg a day. Continue rest unchanged. Assessment: Vital Signs/I&O: Vital Signs Date Time Temp Pulse Resp B/P (MAP) Pulse Ox O2 Delivery O2 Flow Rate FiO2 07/12/20 06:50 97.9 70 19 105/53 (70) 93 Room Air I & O 07/11/20 07/11/20 07/12/20 15:00 23:00 07:00 Intake Total 200 ml 200 ml Balance 200 ml 200 ml Current Medications: Meds: Current Medications Medications (Trade) Dose Ordered Sig/Indra Route PRN Reason Start Time Stop Time Status Last Admin Dose Admin Acetaminophen (Tylenol) 650 mg PRN Q6HRS PRN PO MILD PAIN / TEMP > 100.3'F 06/21/20 16:15 Multi-Ingredient Ointment (Analgesic [place]) 1 joesph PRN QID PRN TP MUSCLE PAIN 4/15/21 16:15 Al Hydroxide/Mg Hydroxide (Mylanta Plus Xs) 15 ml PRN AFTMEALHC PRN PO DYSPEPSIA 06/21/20 16:15 Magnesium Hydroxide (Milk Of Magnesia) 2,400 mg PRN QHS PRN PO CONSTIPATION 06/21/20 16:15 Acetaminophen (Tylenol) 500 mg PRN Q6HRS PRN PO pain or fever 06/21/20 16:30 UNV Albuterol Sulfate (Ventolin) 2.5 mg PRN Q4HRS PRN IH FOR ASTHMA 06/21/20 16:30 UNV Amlodipine Besylate (Norvasc) 5 mg DAILY PO 06/22/20 09:00 07/11/20 08:48 Aripiprazole (Abilify) 15 mg DAILY PO 06/22/20 09:00 07/11/20 08:48 Aspirin (Aspirin Enteric Coated) 81 mg DAILY PO 06/22/20 09:00 07/11/20 08:48 Atorvastatin Calcium (Lipitor) 20 mg QHS PO 06/21/20 21:00 07/11/20 21:10 Calcium/Vitamin D (Oscal D 500mg/ 200uts) 1 tab BID PO 06/21/20 21:00 07/11/20 21:07 Vitamin D (Vitamin D3) 50,000 unit WEEKLY PO 06/25/20 09:00 07/09/20 09:45 Clonazepam (KlonoPIN) 0.5 mg PRN BID PRN PO ANXIETY / AGITATION 06/21/20 16:30 07/12/20 02:55 Cyanocobalamin (Vitamin B-12) 1,000 mcg QMONTH IM 07/17/20 09:00 Diclofenac Sodium (Voltaren) 2 joesph QID TP 06/21/20 17:00 07/11/20 21:00 Docusate Sodium (Colace) 100 mg BID PO 06/21/20 21:00 07/11/20 21:08 Furosemide (Lasix) 20 mg DAILY16 PO 06/22/20 16:00 06/27/20 16:15 DC 06/26/20 15:52 Isosorbide Mononitrate (Imdur) 30 mg DAILY08 PO 06/22/20 08:00 07/11/20 08:47 Ketoconazole (Nizoral 2% Shampoo) 1 joesph PRN DAILY PRN TP DANDRUFF 06/21/20 16:30 Levothyroxine Sodium (Synthroid) 75 mcg DAILY06 PO 06/22/20 06:00 07/12/20 02:55 Metoprolol Tartrate (Lopressor) 12.5 mg BID PO 06/21/20 21:00 07/11/20 21:07 Pantoprazole Sodium (Protonix) 40 mg DAILY08 PO 06/22/20 08:00 07/11/20 08:48 Ropinirole HCl (Requip) 0.5 mg HS PO 06/21/20 21:00 07/11/20 21:06 Salsalate (Salsalate) 1,000 mg 2100 PO 06/21/20 21:00 07/11/20 21:07 Salsalate (Salsalate) 1,500 mg 0800 PO 06/22/20 08:00 07/11/20 08:49 Sennosides (Senna) 8.6 mg BID76 PO 06/21/20 18:00 06/23/20 05:00 DC 06/22/20 16:04 Tramadol HCl (Ultram) 50 mg PRN Q6HRS PRN PO MOD-SEV PAIN 06/21/20 16:30 07/10/20 19:52 Triamcinolone Acetonide (Kenalog) 1 joesph PRN Q12HR PRN TP ITCHING 06/21/20 16:30 Vitamin A/Vitamin D (Vitamin A & D Ointment) 1 joesph PRN Q1HR PRN TP DRY SKIN / SCALING 06/21/20 16:30 Multi-Ingred Cream/Lotion/Oil/ Oint (Hydrocerin) 1 joesph BID TP 06/21/20 21:00 07/11/20 21:00 Fluoxetine HCl (PROzac) 80 mg DAILY08 PO 06/22/20 08:00 07/08/20 18:05 DC 07/08/20 04:26 Non-Formulary Medication (Liraglutide (Saxenda)) 1.8 mg 0800 SQ 06/22/20 08:00 UNV Melatonin (Melatonin) 3 mg HS PO 06/21/20 21:00 07/11/20 21:06 Non-Formulary Medication (Olodaterol HCl (Striverdi Respimat)) 4 gm DAILY08 IH 06/22/20 08:00 UNV Potassium Chloride (Klor-Con) 10 meq TID PO 06/21/20 21:00 06/27/20 16:15 DC 06/27/20 13:12 Quetiapine Fumarate (SEROquel) 300 mg DAILY08 PO 06/22/20 08:00 07/11/20 08:49 Quetiapine Fumarate (SEROquel) 600 mg HS PO 06/21/20 21:00 07/11/20 21:06 Hydroxyzine HCl (Atarax) 25 mg TID PO 06/21/20 21:00 07/11/20 21:09 Albuterol Sulfate (Ventolin Hfa Inhaler) 2 puff PRN Q4HRS PRN INH SHORTNESS OF BREATH 06/21/20 17:15 Divalproex Sodium (Depakote Er) 500 mg QHS PO 06/21/20 21:00 06/24/20 17:35 DC 06/23/20 19:43 Divalproex Sodium (Depakote Er) 500 mg QHS PO 06/22/20 21:00 06/22/20 12:14 DC Sennosides (Senna) 8.6 mg BIDACBL PO 06/23/20 07:30 07/11/20 13:18 Divalproex Sodium (Depakote Er) 750 mg QHS PO 06/24/20 21:00 06/25/20 19:31 DC 06/24/20 21:05 Divalproex Sodium (Depakote Er) 500 mg QHS PO 06/25/20 21:00 07/11/20 21:07 Divalproex Sodium (Depakote Er) 250 mg QHS PO 06/25/20 21:00 07/11/20 21:07 Furosemide (Lasix) 60 mg 1X ONCE PO 06/26/20 21:15 06/26/20 22:10 DC 06/27/20 05:51 Furosemide (Lasix) 40 mg DAILY PO 06/27/20 16:15 07/11/20 08:47 Potassium Chloride (Klor-Con) 20 meq BID PO 06/27/20 21:00 07/11/20 21:08 Fluoxetine HCl (PROzac) 60 mg DAILY08 PO 07/09/20 08:00 07/10/20 20:09 DC 07/10/20 09:09 Bupropion HCl (Wellbutrin Xl) 150 mg DAILY PO 07/09/20 09:00 07/10/20 20:09 DC 07/10/20 09:10 Olanzapine (ZyPREXA ZYDIS) 2.5 mg PRN Q2HR PRN PO PSYCHOSIS 07/10/20 20:00 07/10/20 20:05 Fluoxetine HCl (PROzac) 80 mg DAILY PO 07/11/20 08:00 07/11/20 08:49 Current Medications Medications (Trade) Dose Ordered Sig/Indra Route PRN Reason Start Time Stop Time Status Last Admin Dose Admin Fluoxetine HCl (PROzac) 80 mg DAILY PO 07/11/20 08:00 07/11/20 08:49 I have reviewed the current psychotropics carefully including drug interactions. Risk benefit ratio favors no change other than as noted in my dictated progress note. Diagnosis: Problems: (1) Schizoaffective disorder, bipolar type (2) Impulse control disorder, unspecified (3) Anxiety disorder, unspecified (4) Bipolar disorder, current episode depressed, severe, with psychotic features MICHAEL CLARK MD July 12, 2020 07:18
[2020-07-12 07:32] LABS: ALBUMIN/GLOBULIN RATIO 0.8 (1.0-1.7); CREATININE 0.9 mg/dL (0.6-1.0); GFR 62.5; POTASSIUM 4.6 mmol/L (3.5-5.1); TOTAL BILIRUBIN 0.2 mg/dL (0.2-1.0); TOTAL PROTEIN 6.7 g/dL (6.4-8.2)
[2020-07-12 07:45] LABS: BASO % 1 % (0-3); EOS # 0.3 x10^3/uL (0.0-0.7); EOS % 5 % (0-3); HEMATOCRIT 33.4 % (36.0-47.0); LYMPH # 1.1 x10^3/uL (1.0-4.8); LYMPH % 19 % (24-48); MEAN CORPUSCULAR HEMOGLOBIN 27 pg (25-35); MEAN CORPUSCULAR HGB CONC 33 g/dL (31-37); MEAN CORPUSCULAR VOLUME 83 fL (79-100); MONO # 0.9 x10^3/uL (0.0-1.1); MONO % 14 % (0-9); NEUT # 3.7 x10^3uL (1.8-7.7); NEUT % 62 % (31-73); PLATELET COUNT 228 x10^3/uL (140-400); RED BLOOD COUNT 4.03 x10^6/uL (3.50-5.40); RED CELL DISTRIBUTION WIDTH 16.5 % (11.5-14.5); WHITE BLOOD COUNT 5.9 x10^3/uL (4.0-11.0)
[2020-07-12] MEDS: PANTOPRAZOLE 40 MG TABLET. PO SCH (08:00)
[2020-07-12] MEDS: LIRAGLUTIDE 1.8 MG SQ SCH (08:00)
[2020-07-12] MEDS: NON FORMULARY ITEM (Olodaterol HCl (Striverdi Respimat) 4 GM) IH SCH (08:00)
--- NOTE | 2020-07-12 08:04 | PDOC ---
Exam Note: [place] Note: This note is a late entry for 07/11/2020 covers elements not covered in my initial note. Subjective: The patient was seen individually in the evening of 07/11/2020 with Manny WOMACK, discussed and reviewed the chart. The patient slept 5-1/2 hours previous night. She has been somewhat tearful at times. I met with her in her room. She is fixated on discharge plans but less obsessive today. Review of Systems: Ambulation impaired in wheelchair. No CV, , eye, ENT system symptoms on review. Mental Status Exam: The patient is oriented to herself and situation. Speech coherent, has some latency. Abstraction fair. Computation impaired. Language function intact. Mood and affect depressed, labile. Laboratory Data: Reviewed. Impression: Schizoaffective disorder, bipolar type, mixed with psychotic features in partial remission. Anxiety disorder unspecified. Impulse control disorder unspecified. Plan: No change from initial note. Assessment: Vital Signs/I&O: Vital Signs Date Time Temp Pulse Resp B/P (MAP) Pulse Ox O2 Delivery O2 Flow Rate FiO2 07/12/20 06:50 97.9 70 19 105/53 (70) 93 Room Air I & O0 07/11/20 07/11/20 07/12/20 15:00 23:00 07:00 Intake Total 200 ml 200 ml Balance 200 ml 200 ml Labs: Laboratory Tests Test 07/12/20 06:55 Sodium Level 140 mmol/L (136-145) Potassium Level 4.6 mmol/L (3.5-5.1) Chloride Level 101 mmol/L (98-107) Carbon Dioxide Level 31 mmol/L (21-32) Anion Gap 8 (6-14) Blood Urea Nitrogen 20 mg/dL (7-20) Creatinine 0.9 mg/dL (0.6-1.0) Estimated GFR (Cockcroft-Gault) 62.5 BUN/Creatinine Ratio 22 (6-20) H Glucose Level 87 mg/dL (70-99) Calcium Level 9.0 mg/dL (8.5-10.1) Total Bilirubin 0.2 mg/dL (0.2-1.0) Aspartate Amino Transferase (AST) 18 U/L (15-37) Alanine Aminotransferase (ALT) 17 U/L (14-59) Alkaline Phosphatase 81 U/L (46-116) Total Protein 6.7 g/dL (6.4-8.2) Albumin 3.0 g/dL (3.4-5.0) L Albumin/Globulin Ratio 0.8 (1.0-1.7) L Current Medications: Meds: Laboratory Tests Test 07/12/20 06:55 Sodium Level 140 mmol/L Potassium Level 4.6 mmol/L Chloride Level 101 mmol/L Carbon Dioxide Level 31 mmol/L Anion Gap 8 Blood Urea Nitrogen 20 mg/dL Creatinine 0.9 mg/dL Estimated GFR (Cockcroft-Gault) 62.5 BUN/Creatinine Ratio 22 Glucose Level 87 mg/dL Calcium Level 9.0 mg/dL Total Bilirubin 0.2 mg/dL Aspartate Amino Transf (AST/SGOT) 18 U/L Alanine Aminotransferase (ALT/SGPT) 17 U/L Alkaline Phosphatase 81 U/L Total Protein 6.7 g/dL Albumin 3.0 g/dL Albumin/Globulin Ratio 0.8 Current Medications Medications (Trade) Dose Ordered Sig/Indra Route PRN Reason Start Time Stop Time Status Last Admin Dose Admin Acetaminophen (Tylenol) 650 mg PRN Q6HRS PRN PO MILD PAIN / TEMP > 100.3'F 06/21/20 16:15 Multi-Ingredient Ointment (Analgesic [place]) 1 joesph PRN QID PRN TP MUSCLE PAIN 06/21/20 16:15 Al Hydroxide/Mg Hydroxide (Mylanta Plus Xs) 15 ml PRN AFTMEALHC PRN PO DYSPEPSIA 06/21/20 16:15 Magnesium Hydroxide (Milk Of Magnesia) 2,400 mg PRN QHS PRN PO CONSTIPATION 06/21/20 16:15 Acetaminophen (Tylenol) 500 mg PRN Q6HRS PRN PO pain or fever 06/21/20 16:30 UNV Albuterol Sulfate (Ventolin) 2.5 mg PRN Q4HRS PRN IH FOR ASTHMA 06/21/20 16:30 UNV Amlodipine Besylate (Norvasc) 5 mg DAILY PO 06/22/20 09:00 07/11/20 08:48 Aripiprazole (Abilify) 15 mg DAILY PO 06/22/20 09:00 07/11/20 08:48 Aspirin (Aspirin Enteric Coated) 81 mg DAILY PO 06/22/20 09:00 07/11/20 08:48 Atorvastatin Calcium (Lipitor) 20 mg QHS PO 06/21/20 21:00 07/11/20 21:10 Calcium/Vitamin D (Oscal D 500mg/ 200uts) 1 tab BID PO 06/21/20 21:00 07/11/20 21:07 Vitamin D (Vitamin D3) 50,000 unit WEEKLY PO 06/25/20 09:00 07/09/20 09:45 Clonazepam (KlonoPIN) 0.5 mg PRN BID PRN PO ANXIETY / AGITATION 06/21/20 16:30 07/12/20 02:55 Cyanocobalamin (Vitamin B-12) 1,000 mcg QMONTH IM 07/17/20 09:00 Diclofenac Sodium (Voltaren) 2 joesph QID TP 06/21/20 17:00 07/11/20 21:00 Docusate Sodium (Colace) 100 mg BID PO 06/21/20 21:00 07/11/20 21:08 Furosemide (Lasix) 20 mg DAILY16 PO 06/22/20 16:00 06/27/20 16:15 DC 06/26/20 15:52 Isosorbide Mononitrate (Imdur) 30 mg DAILY08 PO 06/22/20 08:00 07/11/20 08:47 Ketoconazole (Nizoral 2% Shampoo) 1 joesph PRN DAILY PRN TP DANDRUFF 06/21/20 16:30 Levothyroxine Sodium (Synthroid) 75 mcg DAILY06 PO 06/22/20 06:00 07/12/20 02:55 Metoprolol Tartrate (Lopressor) 12.5 mg BID PO 06/21/20 21:00 07/11/20 21:07 Pantoprazole Sodium (Protonix) 40 mg DAILY08 PO 06/22/20 08:00 07/11/20 08:48 Ropinirole HCl (Requip) 0.5 mg HS PO 06/21/20 21:00 07/11/20 21:06 Salsalate (Salsalate) 1,000 mg 2100 PO 06/21/20 21:00 07/11/20 21:07 Salsalate (Salsalate) 1,500 mg 0800 PO 06/22/20 08:00 07/11/20 08:49 Sennosides (Senna) 8.6 mg BID76 PO 06/21/20 18:00 06/23/20 05:00 DC 06/22/20 16:04 Tramadol HCl (Ultram) 50 mg PRN Q6HRS PRN PO MOD-SEV PAIN 06/21/20 16:30 07/10/20 19:52 Triamcinolone Acetonide (Kenalog) 1 joesph PRN Q12HR PRN TP ITCHING 06/21/20 16:30 Vitamin A/Vitamin D (Vitamin A & D Ointment) 1 joesph PRN Q1HR PRN TP DRY SKIN / SCALING 06/21/20 16:30 Multi-Ingred Cream/Lotion/Oil/ Oint (Hydrocerin) 1 joesph BID TP 06/21/20 21:00 07/11/20 21:00 Fluoxetine HCl (PROzac) 80 mg DAILY08 PO 06/22/20 08:00 07/08/20 18:05 DC 07/08/20 04:26 Non-Formulary Medication (Liraglutide (Saxenda)) 1.8 mg 0800 SQ 06/22/20 08:00 UNV Melatonin (Melatonin) 3 mg HS PO 06/21/20 21:00 07/11/20 21:06 Non-Formulary Medication (Olodaterol HCl (Striverdi Respimat)) 4 gm DAILY08 IH 06/22/20 08:00 UNV Potassium Chloride (Klor-Con) 10 meq TID PO 06/21/20 21:00 06/27/20 16:15 DC 06/27/20 13:12 Quetiapine Fumarate (SEROquel) 300 mg DAILY08 PO 06/22/20 08:00 07/11/20 08:49 Quetiapine Fumarate (SEROquel) 600 mg HS PO 06/21/20 21:00 07/11/20 21:06 Hydroxyzine HCl (Atarax) 25 mg TID PO 06/21/20 21:00 07/11/20 21:09 Albuterol Sulfate (Ventolin Hfa Inhaler) 2 puff PRN Q4HRS PRN INH SHORTNESS OF BREATH 06/21/20 17:15 Divalproex Sodium (Depakote Er) 500 mg QHS PO 06/21/20 21:00 06/24/20 17:35 DC 06/23/20 19:43 Divalproex Sodium (Depakote Er) 500 mg QHS PO 06/22/20 21:00 06/22/20 12:14 DC Sennosides (Senna) 8.6 mg BIDACBL PO 06/23/20 07:30 07/11/20 13:18 Divalproex Sodium (Depakote Er) 750 mg QHS PO 06/24/20 21:00 06/25/20 19:31 DC 06/24/20 21:05 Divalproex Sodium (Depakote Er) 500 mg QHS PO 06/25/20 21:00 07/11/20 21:07 Divalproex Sodium (Depakote Er) 250 mg QHS PO 06/25/20 21:00 07/11/20 21:07 Furosemide (Lasix) 60 mg 1X ONCE PO 06/26/20 21:15 06/26/20 22:10 DC 06/27/20 05:51 Furosemide (Lasix) 40 mg DAILY PO 06/27/20 16:15 07/11/20 08:47 Potassium Chloride (Klor-Con) 20 meq BID PO 06/27/20 21:00 07/11/20 21:08 Fluoxetine HCl (PROzac) 60 mg DAILY08 PO 07/09/20 08:00 07/10/20 20:09 DC 07/10/20 09:09 Bupropion HCl (Wellbutrin Xl) 150 mg DAILY PO 07/09/20 09:00 07/10/20 20:09 DC 07/10/20 09:10 Olanzapine (ZyPREXA ZYDIS) 2.5 mg PRN Q2HR PRN PO PSYCHOSIS 07/10/20 20:00 07/10/20 20:05 Fluoxetine HCl (PROzac) 80 mg DAILY PO 07/11/20 08:00 07/11/20 08:49 I have reviewed the current psychotropics carefully including drug interactions. Risk benefit ratio favors no change other than as noted in my dictated progress note. Diagnosis: Problems: (1) Schizoaffective disorder, bipolar type (2) Impulse control disorder, unspecified (3) Anxiety disorder, unspecified (4) Bipolar disorder, current episode depressed, severe, with psychotic features MICHAEL CLARK MD July 12, 2020 08:04
[2020-07-12] MEDS: ASPIRIN ENTERIC COATED 81 MG TABLET.DR. PO SCH (08:21)
[2020-07-12] MEDS: hydrOXYzine HCL 25 MG TABLET PO SCH ×3 (08:22→20:44)
[2020-07-12] MEDS: FLUoxetine HCL 20 MG CAPSULE PO SCH (08:22)
[2020-07-12] MEDS: DOCUSATE SODIUM 100 MG CAPSULE PO SCH ×2 (08:22→20:44)
[2020-07-12] MEDS: ARIPiprazole 15 MG TABLET PO SCH (08:22)
[2020-07-12] MEDS: POTASSIUM CHLORIDE 20 MEQ TABLET.ER. PO SCH ×2 (08:22→20:43)
[2020-07-12] MEDS: QUEtiapine 100 MG TABLET. PO SCH ×2 (08:22→20:46)
[2020-07-12] MEDS: SALSALATE 500 MG PO SCH ×2 (08:23→20:45)
[2020-07-12] MEDS: SENNOSIDES 8.6 MG TABLET PO SCH ×2 (08:23→12:48)
[2020-07-12] MEDS: CALCIUM CARB/VIT D3 500/200 TABLET PO SCH ×2 (08:23→20:44)
[2020-07-12] MEDS: FUROSEMIDE 40 MG TABLET PO SCH (08:23)
[2020-07-12] MEDS: amLODIPine BESYLATE 5 MG TABLET PO SCH (08:24)
[2020-07-12] MEDS: ISOSORBIDE MONONITRATE ER 30 MG TAB.ER.24H PO SCH (08:24)
[2020-07-12] MEDS: METOPROLOL TART IMMED RELEASE 25 MG TABLET. PO SCH ×2 (08:25→20:44)
[2020-07-12] MEDS: DICLOFENAC SODIUM 1% TOPICAL GEL 100GM TUBE. TP SCH ×4 (08:29→20:46)
[2020-07-12] MEDS: MINERAL OIL/PETROLATUM TOPICAL CREAM 113GM JAR. TP SCH ×2 (08:29→20:46)
[2020-07-12 15:56] VITALS: BP 122/76
--- NOTE | 2020-07-12 18:19 | TX PLAN ---
Interdisciplinary Tx Plan Admission Information Jun 21, 2020 at 13:15 Legal Status (on Admission): Voluntary DPOA/Guardian Name: Felix Moscoso Contact Other Contact Name: Emigdio Cantrell Other Contact Verified Code Status: Full Code Allergies: Coded Allergies: chlorpromazine (Verified Allergy, Unknown, 06/07/20) diphenhydramine (Verified Allergy, Unknown, 06/07/20) lisinopril (Verified Allergy, Unknown, 06/07/20) simvastatin (Verified Allergy, Unknown, 06/07/20) Diagnoses Primary Diagnosis: Schizoaffective D/O Reasons for Admission: Delusions, Other Problem in Patient's Words: NA Additional Admission Comments: Pt was re-admitted to [facility] on 06/21 after having a Thoracentesis and 24 hour observation on ICU. Pt is labile and mostly tearful. Previous admission stated pt is paranoid,having multiple times in her head causing an abrasion, anxious and making statements of "I just want to end this" Problems Active Problems: delusional labile mood anxious Inactive Problems: medication management Pt Strengths/Limitations Ability for [place]: Poor Cognitive Functioning/Ability: Fair Communication Skills/Ability: Fair Financial Resources: Fair Insight/Judgement: Poor Intellectual Ability: Fair Physical Health: Poor Social Skills: Fair Stability in Family: Fair Stability in School/Work: Poor Verbal Skills: Fair Discharge Criteria Discharge Criteria: No need for close observ., Adequate arrangements @DC, Improved behavior, Improved mood/thought Special Precautions Fall Risk: Moderate Initial D/C Plan Pt will need placement at discharge. Identified Discharge Needs: Referrals for higher level of care Currently Utilized Resources Currently Utilized Resources/P: [facility] : [facility]CP, Psychiatrist, Counseling, associate store manager Identified Problems/Hx/Goals Objectives/Short-Term Goals Short Term Goals: Dec. Anxiety/Panic, Dec. Hallucination/Delus, Dec. Outbursts, Dec. Symp. Depression, Medication Stabilization, Monitor Med Effects, Promote Coping Skill Short Term Goals in Patient's: I just need to get my Fluffy back Interventions/Frequency Staff Interventions/Frequency&: Psychiatrist to assess pt at least 3x per week for medication mgmt. Social Work to assess pt at least 2x per week to identify barriers to care and final discharge planning. Nursing to assess medication effects, behavior modification and completion of 15 minute checks daily. Encourage participation in group activities (if applicable) or 1:1 engagement based off activity dept goals. History Vocational History: Pt was not able to fully work as her psychiatric troubles prevented her from doing so. 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 [facility] Treatment Plan Explained Patient/Spanish Speaking Nanny had this treatment plan explained to him/her as indicated by the signature below and has been given the opportunity to ask questions and make suggestions: Date: Patient/Spanish Speaking Nanny Signature: Status Update Update Pt is eating roughly 75-100% of meals and sleeping on average 5.5 hours per n ight. Pt continues to be labile (e.g., crying, angry) and manipulating staff surrounding her phone calls. Pt continues to call other people and must not be allowed to use the phone without supervision. Pt has further discussed her emotions and concerns in group activities/therapy; furthermore, it appears that pt does want to seek options for treatment and knows that the [facility] has the [facility] for her to do so. Pt will need an oncology consult and JOSE LUIS will work on making this appt for pt. Pt Prozac was attempted to be discontinued and started on Wellbutrin; however, pt appeared more anxious about this change and wanted to remain on the Prozac. [facility] LU[facility] will continue to follow up with the [facility] and also send referrals on pt to facilities in the event the [facility] continues to not be able to take her. FROY KAISER July 12, 2020 18:19
[2020-07-12] MEDS: DIVALPROEX ER 500 MG TAB.ER.24H PO SCH (20:43)
[2020-07-12] MEDS: DIVALPROEX ER 250 MG TAB.ER.24H. PO SCH (20:44)
[2020-07-12] MEDS: ATORVASTATIN CALCIUM 20 MG TABLET PO SCH (20:44)
[2020-07-12] MEDS: rOPINIRole 0.5 MG TABLET. PO SCH (20:44)
[2020-07-12] MEDS: MELATONIN 3 MG TABLET PO SCH (20:44)
[2020-07-13] MEDS: clonazePAM 0.5 MG TABLET PO PRN ×2 (04:30→14:29)
[2020-07-13 06:07] VITALS: BP 128/77
[2020-07-13] MEDS: LEVOTHYROXINE 75 MCG TABLET PO SCH (06:10)
[2020-07-13] MEDS: NON FORMULARY ITEM (Olodaterol HCl (Striverdi Respimat) 4 GM) IH SCH (08:00)
[2020-07-13] MEDS: LIRAGLUTIDE 1.8 MG SQ SCH (08:00)
--- NOTE | 2020-07-13 08:10 | PDOC ---
Exam Note: [place] Note: This note is a late entry for 07/12/2020 covers elements not covered in my initial note. Subjective: The patient was reviewed in the morning of 07/12/2020 for a treatment team meeting with Ada Clifford, Barbra Lugo and Amanda (social work associate), Caity, activity therapy and Manny WOMACK, discussed and reviewed the chart. The patient slept 7-1/4 hours previous night. Discussed the patients history, diagnoses, discharge plans at length including possibility of getting to the [facility]. If this is not possible, social work associate will arrange an outpatient Oncology follow up at the [facility]. She is compliant with medications, less labile, tearful today, trying to make multiple telephone calls. Also discussed with Vernon WOMACK in the evening. She has had some mood lability but less yelling. Suppository enforcement seems to have helped her good behaviors. Review of Systems: Ambulation impaired in wheelchair. No CV, , eye, ENT system symptoms on review. Mental Status Exam: The patient is oriented to herself and situation. Speech coherent, has some latency. Abstraction fair. Computation impaired. Language function intact. Mood and affect depressed, labile. Laboratory Data: Reviewed. Impression: Schizoaffective disorder, bipolar type, mixed with psychotic features in partial remission. Anxiety disorder unspecified. Impulse control disorder unspecified. Plan: No change from initial note. Assessment: Vital Signs/I&O: Vital Signs Date Time Temp Pulse Resp B/P (MAP) Pulse Ox O2 Delivery O2 Flow Rate FiO2 07/13/20 06:07 97.6 94 20 128/77 (94) 93 07/12/20 15:56 Room Air I & O 07/12/20 07/12/20 07/13/20 15:00 23:00 07:00 Intake Total 560 ml 480 ml Balance 560 ml 480 ml Current Medications: Meds: Current Medications Medications (Trade) Dose Ordered Sig/Indra Route PRN Reason Start Time Stop Time Status Last Admin Dose Admin Acetaminophen (Tylenol) 650 mg PRN Q6HRS PRN PO MILD PAIN / TEMP > 100.3'F 06/21/20 16:15 Multi-Ingredient Ointment (Analgesic [place]) 1 joesph PRN QID PRN TP MUSCLE PAIN 06/21/20 16:15 Al Hydroxide/Mg Hydroxide (Mylanta Plus Xs) 15 ml PRN AFTMEALHC PRN PO DYSPEPSIA 06/21/20 16:15 Magnesium Hydroxide (Milk Of Magnesia) 2,400 mg PRN QHS PRN PO CONSTIPATION 06/21/20 16:15 Acetaminophen (Tylenol) 500 mg PRN Q6HRS PRN PO pain or fever 06/21/20 16:30 UNV Albuterol Sulfate (Ventolin) 2.5 mg PRN Q4HRS PRN IH FOR ASTHMA 06/21/20 16:30 UNV Amlodipine Besylate (Norvasc) 5 mg DAILY PO 06/22/20 09:00 07/12/20 08:24 Aripiprazole (Abilify) 15 mg DAILY PO 06/22/20 09:00 07/12/20 08:22 Aspirin (Aspirin Enteric Coated) 81 mg DAILY PO 06/22/20 09:00 07/12/20 08:21 Atorvastatin Calcium (Lipitor) 20 mg QHS PO 06/21/20 21:00 07/12/20 20:44 Calcium/Vitamin D (Oscal D 500mg/ 200uts) 1 tab BID PO 06/21/20 21:00 07/12/20 20:44 Vitamin D (Vitamin D3) 50,000 unit WEEKLY PO 06/25/20 09:00 07/09/20 09:45 Clonazepam (KlonoPIN) 0.5 mg PRN BID PRN PO ANXIETY / AGITATION 06/21/20 16:30 07/13/20 04:30 Cyanocobalamin (Vitamin B-12) 1,000 mcg QMONTH IM 07/17/20 09:00 Diclofenac Sodium (Voltaren) 2 joesph QID TP 06/21/20 17:00 07/12/20 20:46 Docusate Sodium (Colace) 100 mg BID PO 06/21/20 21:00 07/12/20 20:44 Furosemide (Lasix) 20 mg DAILY16 PO 06/22/20 16:00 06/27/20 16:15 DC 06/26/20 15:52 Isosorbide Mononitrate (Imdur) 30 mg DAILY08 PO 06/22/20 08:00 07/12/20 08:24 Ketoconazole (Nizoral 2% Shampoo) 1 joesph PRN DAILY PRN TP DANDRUFF 06/21/20 16:30 Levothyroxine Sodium (Synthroid) 75 mcg DAILY06 PO 06/22/20 06:00 07/13/20 06:10 Metoprolol Tartrate (Lopressor) 12.5 mg BID PO 06/21/20 21:00 07/12/20 20:44 Pantoprazole Sodium (Protonix) 40 mg DAILY08 PO 06/22/20 08:00 07/12/20 08:00 Ropinirole HCl (Requip) 0.5 mg HS PO 06/21/20 21:00 07/12/20 20:44 Salsalate (Salsalate) 1,000 mg 2100 PO 06/21/20 21:00 07/12/20 20:45 Salsalate (Salsalate) 1,500 mg 0800 PO 06/22/20 08:00 07/12/20 08:23 Sennosides (Senna) 8.6 mg BID76 PO 06/21/20 18:00 06/23/20 05:00 DC 06/22/20 16:04 Tramadol HCl (Ultram) 50 mg PRN Q6HRS PRN PO MOD-SEV PAIN 06/21/20 16:30 07/10/20 19:52 Triamcinolone Acetonide (Kenalog) 1 joesph PRN Q12HR PRN TP ITCHING 06/21/20 16:30 Vitamin A/Vitamin D (Vitamin A & D Ointment) 1 joesph PRN Q1HR PRN TP DRY SKIN / SCALING 06/21/20 16:30 Multi-Ingred Cream/Lotion/Oil/ Oint (Hydrocerin) 1 joesph BID TP 06/21/20 21:00 07/12/20 20:46 Fluoxetine HCl (PROzac) 80 mg DAILY08 PO 06/22/20 08:00 07/08/20 18:05 DC 07/08/20 04:26 Non-Formulary Medication (Liraglutide (Saxenda)) 1.8 mg 0800 SQ 06/22/20 08:00 UNV Melatonin (Melatonin) 3 mg HS PO 06/21/20 21:00 07/12/20 20:44 Non-Formulary Medication (Olodaterol HCl (Striverdi Respimat)) 4 gm DAILY08 IH 06/22/20 08:00 UNV Potassium Chloride (Klor-Con) 10 meq TID PO 06/21/20 21:00 06/27/20 16:15 DC 06/27/20 13:12 Quetiapine Fumarate (SEROquel) 300 mg DAILY08 PO 06/22/20 08:00 07/12/20 08:22 Quetiapine Fumarate (SEROquel) 600 mg HS PO 06/21/20 21:00 07/12/20 20:46 Hydroxyzine HCl (Atarax) 25 mg TID PO 06/21/20 21:00 07/12/20 20:44 Albuterol Sulfate (Ventolin Hfa Inhaler) 2 puff PRN Q4HRS PRN INH SHORTNESS OF BREATH 06/21/20 17:15 Divalproex Sodium (Depakote Er) 500 mg QHS PO 06/21/20 21:00 06/24/20 17:35 DC 06/23/20 19:43 Divalproex Sodium (Depakote Er) 500 mg QHS PO 06/22/20 21:00 06/22/20 12:14 DC Sennosides (Senna) 8.6 mg BIDACBL PO 06/23/20 07:30 07/12/20 12:48 Divalproex Sodium (Depakote Er) 750 mg QHS PO 06/24/20 21:00 06/25/20 19:31 DC 06/24/20 21:05 Divalproex Sodium (Depakote Er) 500 mg QHS PO 06/25/20 21:00 07/12/20 20:43 Divalproex Sodium (Depakote Er) 250 mg QHS PO 06/25/20 21:00 07/12/20 20:44 Furosemide (Lasix) 60 mg 1X ONCE PO 06/26/20 21:15 06/26/20 22:10 DC 06/27/20 05:51 Furosemide (Lasix) 40 mg DAILY PO 06/27/20 16:15 07/12/20 08:23 Potassium Chloride (Klor-Con) 20 meq BID PO 06/27/20 21:00 07/12/20 20:43 Fluoxetine HCl (PROzac) 60 mg DAILY08 PO 07/09/20 08:00 07/10/20 20:09 DC 07/10/20 09:09 Bupropion HCl (Wellbutrin Xl) 150 mg DAILY PO 07/09/20 09:00 07/10/20 20:09 DC 07/10/20 09:10 Olanzapine (ZyPREXA ZYDIS) 2.5 mg PRN Q2HR PRN PO PSYCHOSIS 07/10/20 20:00 07/10/20 20:05 Fluoxetine HCl (PROzac) 80 mg DAILY PO 07/11/20 08:00 07/12/20 08:22 I have reviewed the current psychotropics carefully including drug interactions. Risk benefit ratio favors no change other than as noted in my dictated progress note. Diagnosis: Problems: (1) Schizoaffective disorder, bipolar type (2) Impulse control disorder, unspecified (3) Anxiety disorder, unspecified (4) Bipolar disorder, current episode depressed, severe, with psychotic features MICHAEL CLARK MD July 13, 2020 08:10
[2020-07-13] MEDS: MINERAL OIL/PETROLATUM TOPICAL CREAM 113GM JAR. TP SCH ×2 (09:00→21:00)
[2020-07-13] MEDS: DICLOFENAC SODIUM 1% TOPICAL GEL 100GM TUBE. TP SCH ×4 (09:00→22:11)
[2020-07-13] MEDS: DOCUSATE SODIUM 100 MG CAPSULE PO SCH ×2 (09:08→22:08)
[2020-07-13] MEDS: SENNOSIDES 8.6 MG TABLET PO SCH ×2 (09:09→14:07)
[2020-07-13] MEDS: ARIPiprazole 15 MG TABLET PO SCH (09:09)
[2020-07-13] MEDS: hydrOXYzine HCL 25 MG TABLET PO SCH ×3 (09:09→22:08)
[2020-07-13] MEDS: ASPIRIN ENTERIC COATED 81 MG TABLET.DR. PO SCH (09:09)
[2020-07-13] MEDS: CALCIUM CARB/VIT D3 500/200 TABLET PO SCH ×2 (09:09→22:10)
[2020-07-13] MEDS: QUEtiapine 100 MG TABLET. PO SCH ×2 (09:09→22:10)
[2020-07-13] MEDS: PANTOPRAZOLE 40 MG TABLET. PO SCH (09:10)
[2020-07-13] MEDS: ISOSORBIDE MONONITRATE ER 30 MG TAB.ER.24H PO SCH (09:10)
[2020-07-13] MEDS: FUROSEMIDE 40 MG TABLET PO SCH (09:10)
[2020-07-13] MEDS: FLUoxetine HCL 20 MG CAPSULE PO SCH (09:10)
[2020-07-13] MEDS: SALSALATE 500 MG PO SCH ×2 (09:11→22:09)
[2020-07-13] MEDS: METOPROLOL TART IMMED RELEASE 25 MG TABLET. PO SCH ×2 (09:11→22:08)
[2020-07-13] MEDS: POTASSIUM CHLORIDE 20 MEQ TABLET.ER. PO SCH ×2 (09:11→22:09)
[2020-07-13] MEDS: amLODIPine BESYLATE 5 MG TABLET PO SCH (09:12)
[2020-07-13] MEDS: traMADol 50 MG TABLET PO PRN (09:44)
[2020-07-13 16:00] VITALS: BP 113/56
--- NOTE | 2020-07-13 21:58 | PDOC ---
Exam Note: [place] Note: Please also refer to the separate dictated note~for this date of service dictated separately.~Patient seen individually. Discussed the patient with Nursing staff reviewed the chart.~Reviewed interim history and current functioning. Reviewed vital signs,~Labs/ Radiology~and current medications noted below. Continue current treatment with the changes noted in the dictated addendum note Assessment: Vital Signs/I&O: Vital Signs Date Time Temp Pulse Resp B/P (MAP) Pulse Ox O2 Delivery O2 Flow Rate FiO2 07/13/20 16:00 97.8 67 16 113/56 (75) 94 07/12/20 15:56 Room Air I & O 07/12/20 07/12/20 07/13/20 15:00 23:00 07:00 Intake Total 560 ml 480 ml Balance 560 ml 480 ml Current Medications: Meds: Current Medications Medications (Trade) Dose Ordered Sig/Indra Route PRN Reason Start Time Stop Time Status Last Admin Dose Admin Acetaminophen (Tylenol) 650 mg PRN Q6HRS PRN PO MILD PAIN / TEMP > 100.3'F 06/21/20 16:15 Multi-Ingredient Ointment (Analgesic [place]) 1 joesph PRN QID PRN TP MUSCLE PAIN 06/21/20 16:15 Al Hydroxide/Mg Hydroxide (Mylanta Plus Xs) 15 ml PRN AFTMEALHC PRN PO DYSPEPSIA 06/21/20 16:15 Magnesium Hydroxide (Milk Of Magnesia) 2,400 mg PRN QHS PRN PO CONSTIPATION 06/21/20 16:15 Acetaminophen (Tylenol) 500 mg PRN Q6HRS PRN PO pain or fever 06/21/20 16:30 UNV Albuterol Sulfate (Ventolin) 2.5 mg PRN Q4HRS PRN IH FOR ASTHMA 06/21/20 16:30 UNV Amlodipine Besylate (Norvasc) 5 mg DAILY PO 06/22/20 09:00 07/13/20 09:12 Aripiprazole (Abilify) 15 mg DAILY PO 06/22/20 09:00 07/13/20 09:09 Aspirin (Aspirin Enteric Coated) 81 mg DAILY PO 06/22/20 09:00 07/13/20 09:09 Atorvastatin Calcium (Lipitor) 20 mg QHS PO 06/21/20 21:00 07/12/20 20:44 Calcium/Vitamin D (Oscal D 500mg/ 200uts) 1 tab BID PO 06/21/20 21:00 07/13/20 09:09 Vitamin D (Vitamin D3) 50,000 unit WEEKLY PO 06/25/20 09:00 07/09/20 09:45 Clonazepam (KlonoPIN) 0.5 mg PRN BID PRN PO ANXIETY / AGITATION 06/21/20 16:30 07/13/20 14:29 Cyanocobalamin (Vitamin B-12) 1,000 mcg QMONTH IM 07/17/20 09:00 Diclofenac Sodium (Voltaren) 2 joesph QID TP 06/21/20 17:00 07/13/20 17:00 Docusate Sodium (Colace) 100 mg BID PO 06/21/20 21:00 07/13/20 09:08 Furosemide (Lasix) 20 mg DAILY16 PO 06/22/20 16:00 06/27/20 16:15 DC 06/26/20 15:52 Isosorbide Mononitrate (Imdur) 30 mg DAILY08 PO 06/22/20 08:00 07/13/20 09:10 Ketoconazole (Nizoral 2% Shampoo) 1 joesph PRN DAILY PRN TP DANDRUFF 06/21/20 16:30 Levothyroxine Sodium (Synthroid) 75 mcg DAILY06 PO 06/22/20 06:00 07/13/20 06:10 Metoprolol Tartrate (Lopressor) 12.5 mg BID PO 06/21/20 21:00 07/13/20 09:11 Pantoprazole Sodium (Protonix) 40 mg DAILY08 PO 06/22/20 08:00 07/13/20 09:10 Ropinirole HCl (Requip) 0.5 mg HS PO 06/21/20 21:00 07/12/20 20:44 Salsalate (Salsalate) 1,000 mg 2100 PO 06/21/20 21:00 07/12/20 20:45 Salsalate (Salsalate) 1,500 mg 0800 PO 06/22/20 08:00 07/13/20 09:11 Sennosides (Senna) 8.6 mg BID76 PO 06/21/20 18:00 06/23/20 05:00 DC 06/22/20 16:04 Tramadol HCl (Ultram) 50 mg PRN Q6HRS PRN PO MOD-SEV PAIN 06/21/20 16:30 07/13/20 09:44 Triamcinolone Acetonide (Kenalog) 1 joesph PRN Q12HR PRN TP ITCHING 06/21/20 16:30 Vitamin A/Vitamin D (Vitamin A & D Ointment) 1 joesph PRN Q1HR PRN TP DRY SKIN / SCALING 06/21/20 16:30 Multi-Ingred Cream/Lotion/Oil/ Oint (Hydrocerin) 1 joesph BID TP 06/21/20 21:00 07/13/20 09:00 Fluoxetine HCl (PROzac) 80 mg DAILY08 PO 06/22/20 08:00 07/08/20 18:05 DC 07/08/20 04:26 Non-Formulary Medication (Liraglutide (Saxenda)) 1.8 mg 0800 SQ 06/22/20 08:00 UNV Melatonin (Melatonin) 3 mg HS PO 06/21/20 21:00 07/12/20 20:44 Non-Formulary Medication (Olodaterol HCl (Striverdi Respimat)) 4 gm DAILY08 IH 06/22/20 08:00 UNV Potassium Chloride (Klor-Con) 10 meq TID PO 06/21/20 21:00 06/27/20 16:15 DC 06/27/20 13:12 Quetiapine Fumarate (SEROquel) 300 mg DAILY08 PO 06/22/20 08:00 07/13/20 09:09 Quetiapine Fumarate (SEROquel) 600 mg HS PO 06/21/20 21:00 07/12/20 20:46 Hydroxyzine HCl (Atarax) 25 mg TID PO 06/21/20 21:00 07/13/20 14:07 Albuterol Sulfate (Ventolin Hfa Inhaler) 2 puff PRN Q4HRS PRN INH SHORTNESS OF BREATH 06/21/20 17:15 Divalproex Sodium (Depakote Er) 500 mg QHS PO 06/21/20 21:00 06/24/20 17:35 DC 06/23/20 19:43 Divalproex Sodium (Depakote Er) 500 mg QHS PO 06/22/20 21:00 06/22/20 12:14 DC Sennosides (Senna) 8.6 mg BIDACBL PO 06/23/20 07:30 07/13/20 14:07 Divalproex Sodium (Depakote Er) 750 mg QHS PO 06/24/20 21:00 06/25/20 19:31 DC 06/24/20 21:05 Divalproex Sodium (Depakote Er) 500 mg QHS PO 06/25/20 21:00 07/12/20 20:43 Divalproex Sodium (Depakote Er) 250 mg QHS PO 06/25/20 21:00 07/12/20 20:44 Furosemide (Lasix) 60 mg 1X ONCE PO 06/26/20 21:15 06/26/20 22:10 DC 06/27/20 05:51 Furosemide (Lasix) 40 mg DAILY PO 06/27/20 16:15 07/13/20 09:10 Potassium Chloride (Klor-Con) 20 meq BID PO 06/27/20 21:00 07/13/20 09:11 Fluoxetine HCl (PROzac) 60 mg DAILY08 PO 07/09/20 08:00 07/10/20 20:09 DC 07/10/20 09:09 Bupropion HCl (Wellbutrin Xl) 150 mg DAILY PO 07/09/20 09:00 07/10/20 20:09 DC 07/10/20 09:10 Olanzapine (ZyPREXA ZYDIS) 2.5 mg PRN Q2HR PRN PO PSYCHOSIS 07/10/20 20:00 07/10/20 20:05 Fluoxetine HCl (PROzac) 80 mg DAILY PO 07/11/20 08:00 07/13/20 09:10 I have reviewed the current psychotropics carefully including drug interactions. Risk benefit ratio favors no change other than as noted in my dictated progress note. Diagnosis: Problems: (1) Impulse control disorder, unspecified (2) Anxiety disorder, unspecified (3) Bipolar disorder, current episode depressed, severe, with psychotic features MICHAEL CLARK MD July 13, 2020 21:58
[2020-07-13] MEDS: rOPINIRole 0.5 MG TABLET. PO SCH (22:08)
[2020-07-13] MEDS: ATORVASTATIN CALCIUM 20 MG TABLET PO SCH (22:09)
[2020-07-13] MEDS: DIVALPROEX ER 500 MG TAB.ER.24H PO SCH (22:10)
[2020-07-13] MEDS: DIVALPROEX ER 250 MG TAB.ER.24H. PO SCH (22:10)
[2020-07-13] MEDS: MELATONIN 3 MG TABLET PO SCH (22:11)
[2020-07-14] MEDS: clonazePAM 0.5 MG TABLET PO PRN ×2 (03:51→14:36)
[2020-07-14] MEDS: LEVOTHYROXINE 75 MCG TABLET PO SCH ×2 (03:51→08:43)
[2020-07-14 06:10] VITALS: BP 113/70
[2020-07-14] MEDS: LIRAGLUTIDE 1.8 MG SQ SCH (08:00)
[2020-07-14] MEDS: NON FORMULARY ITEM (Olodaterol HCl (Striverdi Respimat) 4 GM) IH SCH (08:00)
[2020-07-14] MEDS: FUROSEMIDE 40 MG TABLET PO SCH (08:42)
[2020-07-14] MEDS: ARIPiprazole 15 MG TABLET PO SCH (08:42)
[2020-07-14] MEDS: DOCUSATE SODIUM 100 MG CAPSULE PO SCH ×2 (08:42→21:31)
[2020-07-14] MEDS: CALCIUM CARB/VIT D3 500/200 TABLET PO SCH ×2 (08:43→21:30)
[2020-07-14] MEDS: hydrOXYzine HCL 25 MG TABLET PO SCH ×3 (08:43→21:31)
[2020-07-14] MEDS: ASPIRIN ENTERIC COATED 81 MG TABLET.DR. PO SCH (08:43)
[2020-07-14] MEDS: amLODIPine BESYLATE 5 MG TABLET PO SCH (08:43)
[2020-07-14] MEDS: ISOSORBIDE MONONITRATE ER 30 MG TAB.ER.24H PO SCH (08:44)
[2020-07-14] MEDS: METOPROLOL TART IMMED RELEASE 25 MG TABLET. PO SCH ×2 (08:44→21:31)
[2020-07-14] MEDS: SENNOSIDES 8.6 MG TABLET PO SCH ×2 (08:45→11:30)
[2020-07-14] MEDS: POTASSIUM CHLORIDE 20 MEQ TABLET.ER. PO SCH ×2 (08:45→21:30)
[2020-07-14] MEDS: FLUoxetine HCL 20 MG CAPSULE PO SCH (08:45)
[2020-07-14] MEDS: QUEtiapine 100 MG TABLET. PO SCH ×2 (08:45→21:30)
[2020-07-14] MEDS: PANTOPRAZOLE 40 MG TABLET. PO SCH (08:45)
[2020-07-14] MEDS: SALSALATE 500 MG PO SCH ×2 (08:54→21:29)
[2020-07-14] MEDS: DICLOFENAC SODIUM 1% TOPICAL GEL 100GM TUBE. TP SCH ×4 (09:00→21:32)
[2020-07-14] MEDS: MINERAL OIL/PETROLATUM TOPICAL CREAM 113GM JAR. TP SCH ×2 (09:00→21:00)
[2020-07-14 16:09] VITALS: BP 117/67
[2020-07-14] MEDS: rOPINIRole 0.5 MG TABLET. PO SCH (21:29)
[2020-07-14] MEDS: MELATONIN 3 MG TABLET PO SCH (21:30)
[2020-07-14] MEDS: ATORVASTATIN CALCIUM 20 MG TABLET PO SCH (21:31)
[2020-07-14] MEDS: DIVALPROEX ER 500 MG TAB.ER.24H PO SCH (21:31)
[2020-07-14] MEDS: DIVALPROEX ER 250 MG TAB.ER.24H. PO SCH (21:31)
--- NOTE | 2020-07-15 00:49 | PN ---
DATE: 07/14/2020 SUBJECTIVE: The patient was seen today, met with the staff and chart reviewed. She continues to be on wheelchair. The patient wants to walk with a walker. Apparently, she did that when she was at home. The patient still with posttraumatic issues from the past and also going through a major surgery including having a partial pneumonectomy secondary to lung cancer. The patient apparently has done well since admission. OBSERVATION: VITAL SIGNS: Temperature 96.5, blood pressure 113/70, pulse 62, respirations 16, O2 sat 92%. Slept about 5 hours last night. The patient's appetite improved. CURRENT MEDICATIONS: Include Prozac 80 mg daily, Depakote 250 mg daily plus 500 mg at night, Abilify 15 mg daily, Seroquel 300 mg at night, also Seroquel 600 mg daily, melatonin 3 mg at night. LABORATORY DATA: The patient's lab reviewed. The patient's Depakote level was 52. ASSESSMENT: 1. Schizoaffective disorder, bipolar type, mixed with psychotic features. 2. Anxiety disorder. PLAN: Continue with the current treatment plan. LENGTH OF STAY: 7 days. Awaiting for placement. TANK DR: MIKY/radha TID: [id number] [facility]
[2020-07-15] MEDS: clonazePAM 0.5 MG TABLET PO PRN ×2 (01:12→13:26)
[2020-07-15 06:20] VITALS: BP 137/76
[2020-07-15] MEDS: LIRAGLUTIDE 1.8 MG SQ SCH (08:00)
[2020-07-15] MEDS: NON FORMULARY ITEM (Olodaterol HCl (Striverdi Respimat) 4 GM) IH SCH (08:00)
[2020-07-15] MEDS: FUROSEMIDE 40 MG TABLET PO SCH (08:31)
[2020-07-15] MEDS: PANTOPRAZOLE 40 MG TABLET. PO SCH (08:31)
[2020-07-15] MEDS: hydrOXYzine HCL 25 MG TABLET PO SCH ×3 (08:31→20:57)
[2020-07-15] MEDS: DOCUSATE SODIUM 100 MG CAPSULE PO SCH ×2 (08:31→20:59)
[2020-07-15] MEDS: POTASSIUM CHLORIDE 20 MEQ TABLET.ER. PO SCH ×2 (08:31→20:58)
[2020-07-15] MEDS: QUEtiapine 100 MG TABLET. PO SCH ×2 (08:32→20:59)
[2020-07-15] MEDS: FLUoxetine HCL 20 MG CAPSULE PO SCH (08:32)
[2020-07-15] MEDS: SALSALATE 500 MG PO SCH ×2 (08:32→20:59)
[2020-07-15] MEDS: ARIPiprazole 15 MG TABLET PO SCH (08:33)
[2020-07-15] MEDS: ISOSORBIDE MONONITRATE ER 30 MG TAB.ER.24H PO SCH (08:33)
[2020-07-15] MEDS: SENNOSIDES 8.6 MG TABLET PO SCH ×2 (08:33→13:25)
[2020-07-15] MEDS: CALCIUM CARB/VIT D3 500/200 TABLET PO SCH ×2 (08:33→20:57)
[2020-07-15] MEDS: ASPIRIN ENTERIC COATED 81 MG TABLET.DR. PO SCH (08:33)
[2020-07-15] MEDS: amLODIPine BESYLATE 5 MG TABLET PO SCH (08:34)
[2020-07-15] MEDS: METOPROLOL TART IMMED RELEASE 25 MG TABLET. PO SCH ×2 (08:34→20:58)
[2020-07-15] MEDS: MINERAL OIL/PETROLATUM TOPICAL CREAM 113GM JAR. TP SCH ×2 (09:00→20:59)
[2020-07-15] MEDS: DICLOFENAC SODIUM 1% TOPICAL GEL 100GM TUBE. TP SCH ×4 (09:00→20:56)
[2020-07-15 16:20] VITALS: BP 139/76
[2020-07-15] MEDS: DIVALPROEX ER 250 MG TAB.ER.24H. PO SCH (20:57)
[2020-07-15] MEDS: DIVALPROEX ER 500 MG TAB.ER.24H PO SCH (20:57)
[2020-07-15] MEDS: rOPINIRole 0.5 MG TABLET. PO SCH (20:57)
[2020-07-15] MEDS: ATORVASTATIN CALCIUM 20 MG TABLET PO SCH (20:57)
[2020-07-15] MEDS: MELATONIN 3 MG TABLET PO SCH (20:59)
[2020-07-16] MEDS: clonazePAM 0.5 MG TABLET PO PRN ×2 (02:58→14:39)
[2020-07-16] MEDS: LEVOTHYROXINE 75 MCG TABLET PO SCH (02:58)
--- NOTE | 2020-07-16 03:00 | PN ---
DATE: 07/15/2020 SUBJECTIVE: The patient was seen today, met with the staff, chart reviewed. The patient's behavior has improved slightly, but she tends to isolate herself most of the time. She is less depressed, interacting with the staff. Currently, not exhibiting any psychotic symptoms. OBSERVATION: VITAL SIGNS: Temperature 97.5, blood pressure 137/76, pulse 58, respirations 16, O2 sat 87%. GENERAL: Slept about 4 hours last night. The patient continues to have problems with breathing at times. The patient is still having difficulty going through the surgery. Apparently, she had partial lobectomy for lung cancer. CURRENT MEDICATIONS: Include Prozac 80 mg daily, Depakote 250 mg daily and 500 mg at night, Abilify 15 mg daily, Seroquel 300 mg at night and Seroquel 600 mg daily. She is also on melatonin 3 mg at night. ASSESSMENT: 1. Schizoaffective disorder, bipolar type, mixed with psychotic features. 2. Anxiety disorder, unspecified. PLAN: Continue with the current treatment plan. LENGTH OF STAY: Seven days. She is awaiting for placement. BRENDON DR: Azul TID: [id number] [facility]
[2020-07-16 06:38] VITALS: BP 122/75
[2020-07-16] MEDS: LIRAGLUTIDE 1.8 MG SQ SCH (07:32)
[2020-07-16] MEDS: NON FORMULARY ITEM (Olodaterol HCl (Striverdi Respimat) 4 GM) IH SCH (07:32)
[2020-07-16] MEDS: DICLOFENAC SODIUM 1% TOPICAL GEL 100GM TUBE. TP SCH ×4 (09:00→20:59)
[2020-07-16] MEDS: MINERAL OIL/PETROLATUM TOPICAL CREAM 113GM JAR. TP SCH ×2 (09:00→20:59)
[2020-07-16] MEDS: hydrOXYzine HCL 25 MG TABLET PO SCH ×3 (09:06→21:02)
[2020-07-16] MEDS: DOCUSATE SODIUM 100 MG CAPSULE PO SCH ×2 (09:06→21:00)
[2020-07-16] MEDS: ARIPiprazole 15 MG TABLET PO SCH (09:06)
[2020-07-16] MEDS: QUEtiapine 100 MG TABLET. PO SCH ×2 (09:07→21:01)
[2020-07-16] MEDS: FLUoxetine HCL 20 MG CAPSULE PO SCH (09:07)
[2020-07-16] MEDS: ASPIRIN ENTERIC COATED 81 MG TABLET.DR. PO SCH (09:07)
[2020-07-16] MEDS: METOPROLOL TART IMMED RELEASE 25 MG TABLET. PO SCH ×2 (09:07→21:00)
[2020-07-16] MEDS: PANTOPRAZOLE 40 MG TABLET. PO SCH (09:07)
[2020-07-16] MEDS: SALSALATE 500 MG PO SCH ×2 (09:08→20:59)
[2020-07-16] MEDS: POTASSIUM CHLORIDE 20 MEQ TABLET.ER. PO SCH ×2 (09:08→21:01)
[2020-07-16] MEDS: FUROSEMIDE 40 MG TABLET PO SCH (09:08)
[2020-07-16] MEDS: CALCIUM CARB/VIT D3 500/200 TABLET PO SCH ×2 (09:08→20:59)
[2020-07-16] MEDS: SENNOSIDES 8.6 MG TABLET PO SCH ×2 (09:08→12:02)
[2020-07-16] MEDS: ISOSORBIDE MONONITRATE ER 30 MG TAB.ER.24H PO SCH (09:08)
[2020-07-16] MEDS: amLODIPine BESYLATE 5 MG TABLET PO SCH (09:09)
[2020-07-16] MEDS: CHOLECALCIFEROL (VITAMIN D3) 50,000 UNIT CAPSULE PO SCH (09:10)
[2020-07-16 16:14] VITALS: BP 145/74
[2020-07-16] MEDS: ATORVASTATIN CALCIUM 20 MG TABLET PO SCH (21:00)
[2020-07-16] MEDS: DIVALPROEX ER 500 MG TAB.ER.24H PO SCH (21:01)
[2020-07-16] MEDS: DIVALPROEX ER 250 MG TAB.ER.24H. PO SCH (21:01)
[2020-07-16] MEDS: rOPINIRole 0.5 MG TABLET. PO SCH (21:02)
[2020-07-16] MEDS: MELATONIN 3 MG TABLET PO SCH (21:02)
[2020-07-17] MEDS: LEVOTHYROXINE 75 MCG TABLET PO SCH (03:42)
[2020-07-17] MEDS: clonazePAM 0.5 MG TABLET PO PRN ×2 (03:42→15:43)
[2020-07-17 06:18] VITALS: BP 133/68
[2020-07-17] MEDS: NON FORMULARY ITEM (Olodaterol HCl (Striverdi Respimat) 4 GM) IH SCH (08:00)
[2020-07-17] MEDS: LIRAGLUTIDE 1.8 MG SQ SCH (08:00)
[2020-07-17] MEDS: ASPIRIN ENTERIC COATED 81 MG TABLET.DR. PO SCH (08:33)
[2020-07-17] MEDS: FLUoxetine HCL 20 MG CAPSULE PO SCH (08:33)
[2020-07-17] MEDS: ARIPiprazole 15 MG TABLET PO SCH (08:34)
[2020-07-17] MEDS: CALCIUM CARB/VIT D3 500/200 TABLET PO SCH ×2 (08:34→20:33)
[2020-07-17] MEDS: SALSALATE 500 MG PO SCH ×2 (08:34→20:36)
[2020-07-17] MEDS: DOCUSATE SODIUM 100 MG CAPSULE PO SCH ×2 (08:34→20:34)
[2020-07-17] MEDS: SENNOSIDES 8.6 MG TABLET PO SCH ×2 (08:35→13:28)
[2020-07-17] MEDS: ISOSORBIDE MONONITRATE ER 30 MG TAB.ER.24H PO SCH (08:35)
[2020-07-17] MEDS: QUEtiapine 100 MG TABLET. PO SCH ×2 (08:35→20:36)
[2020-07-17] MEDS: PANTOPRAZOLE 40 MG TABLET. PO SCH (08:35)
[2020-07-17] MEDS: hydrOXYzine HCL 25 MG TABLET PO SCH ×3 (08:36→20:34)
[2020-07-17] MEDS: POTASSIUM CHLORIDE 20 MEQ TABLET.ER. PO SCH ×2 (08:36→20:33)
[2020-07-17] MEDS: amLODIPine BESYLATE 5 MG TABLET PO SCH (08:36)
[2020-07-17] MEDS: FUROSEMIDE 40 MG TABLET PO SCH (08:38)
[2020-07-17] MEDS: DICLOFENAC SODIUM 1% TOPICAL GEL 100GM TUBE. TP SCH ×4 (08:38→20:37)
[2020-07-17] MEDS: MINERAL OIL/PETROLATUM TOPICAL CREAM 113GM JAR. TP SCH ×2 (08:38→20:37)
[2020-07-17] MEDS: METOPROLOL TART IMMED RELEASE 25 MG TABLET. PO SCH ×2 (08:39→20:35)
[2020-07-17] MEDS ORDERED: CYANOCOBALAMIN (VITAMIN B-12) 1,000 MCG/ML VIAL. IM SCH (09:00)
--- NOTE | 2020-07-17 09:47 | PN ---
DATE: 07/16/2020 SUBJECTIVE: The patient was seen today, met with the staff. Chart reviewed and also covering for Dr. Escalante. The patient continues to be withdrawn and isolates herself. Still depressed. Focused on all negatives. The patient is still having difficulty accepting her surgery for her lung cancer. PHYSICAL EXAMINATION: VITAL SIGNS: Temperature 97.6, blood pressure 122/75, pulse 57, respirations 18, O2 sat 97%. GENERAL: The patient's appetite improved. ASSESSMENT: 1. Schizoaffective disorder, bipolar type, mixed with psychotic features. 2. Anxiety disorder, unspecified. PLAN: To continue with the treatment. LENGTH OF STAY: Seven days, awaiting for placement. HIEU/YESSICA DR: Azul TID: [id number] MTDLianne
[2020-07-17 16:29] VITALS: BP 112/69
[2020-07-17] MEDS: DIVALPROEX ER 250 MG TAB.ER.24H. PO SCH (20:33)
[2020-07-17] MEDS: DIVALPROEX ER 500 MG TAB.ER.24H PO SCH (20:34)
[2020-07-17] MEDS: MELATONIN 3 MG TABLET PO SCH (20:34)
[2020-07-17] MEDS: rOPINIRole 0.5 MG TABLET. PO SCH (20:34)
[2020-07-17] MEDS: ATORVASTATIN CALCIUM 20 MG TABLET PO SCH (20:34)
--- NOTE | 2020-07-18 03:58 | PN ---
DATE: 07/17/2020 SUBJECTIVE: The patient was seen today, met with the staff. Chart was reviewed and also covering for Dr. Escalante. The patient's behavior has improved. Still withdrawn, isolative, tends to be irritable, negative thinking and also admits to problems with impulse control and low frustration tolerance. OBSERVATION: VITAL SIGNS: Temperature 98.0, blood pressure 112/69, pulse 62, respirations 18, O2 sat 98%. GENERAL: The patient is sleeping fair. Her appetite improved. MEDICATIONS: The patient's current medications include Prozac 80 mg daily, Depakote 250 mg plus 500 mg at night, Abilify 15 mg daily, Seroquel 300 mg daily. She is also on olanzapine 2.5 mg every 2 hours p.r.n. The patient is not having any side effects to medications. ASSESSMENT: 1. Schizoaffective disorder, bipolar type, mixed with psychotic features. 2. Anxiety disorder, unspecified. PLAN: To continue with the treatment. Length of stay is 7 days. The patient is awaiting for placement. Her preference is going to the [facility]. RACHAEL/AYANNA DR: Azul TID: [id number]
[2020-07-18 06:07] VITALS: BP 153/82
[2020-07-18] MEDS: LEVOTHYROXINE 75 MCG TABLET PO SCH (06:19)
[2020-07-18] MEDS: LIRAGLUTIDE 1.8 MG SQ SCH (08:00)
[2020-07-18] MEDS: NON FORMULARY ITEM (Olodaterol HCl (Striverdi Respimat) 4 GM) IH SCH (08:00)
[2020-07-18] MEDS: MINERAL OIL/PETROLATUM TOPICAL CREAM 113GM JAR. TP SCH ×2 (09:00→21:00)
[2020-07-18] MEDS: DICLOFENAC SODIUM 1% TOPICAL GEL 100GM TUBE. TP SCH ×4 (09:00→21:19)
[2020-07-18] MEDS: traMADol 50 MG TABLET PO PRN (09:21)
[2020-07-18] MEDS: FLUoxetine HCL 20 MG CAPSULE PO SCH (09:23)
[2020-07-18] MEDS: SENNOSIDES 8.6 MG TABLET PO SCH ×2 (09:23→12:20)
[2020-07-18] MEDS: QUEtiapine 100 MG TABLET. PO SCH ×2 (09:24→21:20)
[2020-07-18] MEDS: PANTOPRAZOLE 40 MG TABLET. PO SCH (09:24)
[2020-07-18] MEDS: amLODIPine BESYLATE 5 MG TABLET PO SCH (09:24)
[2020-07-18] MEDS: ISOSORBIDE MONONITRATE ER 30 MG TAB.ER.24H PO SCH (09:24)
[2020-07-18] MEDS: DOCUSATE SODIUM 100 MG CAPSULE PO SCH ×2 (09:25→21:21)
[2020-07-18] MEDS: CALCIUM CARB/VIT D3 500/200 TABLET PO SCH ×2 (09:25→21:21)
[2020-07-18] MEDS: POTASSIUM CHLORIDE 20 MEQ TABLET.ER. PO SCH ×2 (09:25→21:21)
[2020-07-18] MEDS: FUROSEMIDE 40 MG TABLET PO SCH (09:25)
[2020-07-18] MEDS: hydrOXYzine HCL 25 MG TABLET PO SCH ×3 (09:25→21:21)
[2020-07-18] MEDS: METOPROLOL TART IMMED RELEASE 25 MG TABLET. PO SCH ×2 (09:26→21:21)
[2020-07-18] MEDS: SALSALATE 500 MG PO SCH ×2 (09:26→21:19)
[2020-07-18] MEDS: ARIPiprazole 15 MG TABLET PO SCH (09:26)
[2020-07-18] MEDS: ASPIRIN ENTERIC COATED 81 MG TABLET.DR. PO SCH (09:26)
[2020-07-18] MEDS: clonazePAM 0.5 MG TABLET PO PRN ×2 (09:37→18:35)
[2020-07-18 16:32] VITALS: BP 132/77
[2020-07-18] MEDS: rOPINIRole 0.5 MG TABLET. PO SCH (21:20)
[2020-07-18] MEDS: MELATONIN 3 MG TABLET PO SCH (21:20)
[2020-07-18] MEDS: DIVALPROEX ER 250 MG TAB.ER.24H. PO SCH (21:21)
[2020-07-18] MEDS: ATORVASTATIN CALCIUM 20 MG TABLET PO SCH (21:21)
[2020-07-18] MEDS: DIVALPROEX ER 500 MG TAB.ER.24H PO SCH (21:21)
--- NOTE | 2020-07-19 02:03 | PN ---
DATE: 07/18/2020 SUBJECTIVE: The patient was seen today, met with the staff. Chart was reviewed and also covering for Dr. Escalante. The patient's behavior has improved, still withdrawn, isolative, tends to be irritable, negative thinking. Staff reports increased agitation. The patient prefers to be by herself, does not like being around people because of the noise and being sensitive to noise. The patient has not expressed any negative thoughts. No mention of any thoughts of suicide. OBSERVATION: VITAL SIGNS: Temperature 97.6, blood pressure 153/82, pulse 60, respirations 18, O2 sat 93%. GENERAL: Slept about 6 hours last night. The patient's appetite is fair. MEDICATIONS: The patient's current medications include Prozac 80 mg daily, Depakote 250 mg at night and 500 mg at night, Abilify 15 mg daily, and Seroquel 300 mg at night. The patient is also on olanzapine 2.5 mg q.2 hours p.r.n. for agitation and psychosis. The patient is not having any side effects to medications. ASSESSMENT: 1. Schizoaffective disorder, bipolar type, mixed with psychotic features. 2. Anxiety disorder, unspecified. PLAN: To continue with treatment. LENGTH OF STAY: Seven days. CARLOS DR: Azul TID: [id number]
[2020-07-19 05:34] VITALS: BP 121/69
[2020-07-19] MEDS: LEVOTHYROXINE 75 MCG TABLET PO SCH (06:18)
[2020-07-19] MEDS: NON FORMULARY ITEM (Olodaterol HCl (Striverdi Respimat) 4 GM) IH SCH (08:00)
[2020-07-19] MEDS: LIRAGLUTIDE 1.8 MG SQ SCH (08:00)
[2020-07-19] MEDS: ARIPiprazole 15 MG TABLET PO SCH (08:58)
[2020-07-19] MEDS: hydrOXYzine HCL 25 MG TABLET PO SCH ×3 (08:59→21:27)
[2020-07-19] MEDS: SALSALATE 500 MG PO SCH ×2 (08:59→21:27)
[2020-07-19] MEDS: PANTOPRAZOLE 40 MG TABLET. PO SCH (08:59)
[2020-07-19] MEDS: FLUoxetine HCL 20 MG CAPSULE PO SCH (08:59)
[2020-07-19] MEDS: SENNOSIDES 8.6 MG TABLET PO SCH ×2 (09:00→11:30)
[2020-07-19] MEDS: FUROSEMIDE 40 MG TABLET PO SCH (09:00)
[2020-07-19] MEDS: MINERAL OIL/PETROLATUM TOPICAL CREAM 113GM JAR. TP SCH ×2 (09:00→21:00)
[2020-07-19] MEDS: ASPIRIN ENTERIC COATED 81 MG TABLET.DR. PO SCH (09:00)
[2020-07-19] MEDS: amLODIPine BESYLATE 5 MG TABLET PO SCH (09:00)
[2020-07-19] MEDS: DICLOFENAC SODIUM 1% TOPICAL GEL 100GM TUBE. TP SCH ×4 (09:00→21:28)
[2020-07-19] MEDS: POTASSIUM CHLORIDE 20 MEQ TABLET.ER. PO SCH ×2 (09:00→21:26)
[2020-07-19] MEDS: METOPROLOL TART IMMED RELEASE 25 MG TABLET. PO SCH ×2 (09:01→21:26)
[2020-07-19] MEDS: QUEtiapine 100 MG TABLET. PO SCH ×2 (09:01→21:28)
[2020-07-19] MEDS: DOCUSATE SODIUM 100 MG CAPSULE PO SCH ×2 (09:02→21:27)
[2020-07-19] MEDS: CALCIUM CARB/VIT D3 500/200 TABLET PO SCH ×2 (09:02→21:27)
[2020-07-19] MEDS: ISOSORBIDE MONONITRATE ER 30 MG TAB.ER.24H PO SCH (09:02)
[2020-07-19 16:22] VITALS: BP 123/61
--- NOTE | 2020-07-19 17:48 | TX PLAN ---
Interdisciplinary Tx Plan Admission Information Jun 21, 2020 at 13:15 Legal Status (on Admission): Voluntary DPOA/Guardian Name: Felix Moscoso Contact Other Contact Name: Emigdio Cantrell Other Contact Verified Code Status: Full Code Allergies: Coded Allergies: chlorpromazine (Verified Allergy, Unknown, 06/07/20) diphenhydramine (Verified Allergy, Unknown, 06/07/20) lisinopril (Verified Allergy, Unknown, 06/07/20) simvastatin (Verified Allergy, Unknown, 06/07/20) Diagnoses Primary Diagnosis: Schizoaffective D/O Reasons for Admission: Delusions, Other Problem in Patient's Words: NA Additional Admission Comments: Pt was re-admitted to [facility] on 06/21 after having a Thoracentesis and 24 hour observation on ICU. Pt is labile and mostly tearful. Previous admission stated pt is paranoid,having multiple times in her head causing an abrasion, anxious and making statements of "I just want to end this" Problems Active Problems: delusional labile mood anxious Inactive Problems: medication management Pt Strengths/Limitations Ability for [place]: Poor Cognitive Functioning/Ability: Fair Communication Skills/Ability: Fair Financial Resources: Fair Insight/Judgement: Poor Intellectual Ability: Fair Physical Health: Poor Social Skills: Fair Stability in Family: Fair Stability in School/Work: Poor Verbal Skills: Fair Discharge Criteria Discharge Criteria: No need for close observ., Adequate arrangements @DC, Improved behavior, Improved mood/thought Special Precautions Fall Risk: Moderate Initial D/C Plan Pt will need placement at discharge. Identified Discharge Needs: Referrals for higher level of care Currently Utilized Resources Currently Utilized Resources/P: [facility] services : PCP, Psychiatrist, Counseling, supply chain project manager Identified Problems/Hx/Goals Objectives/Short-Term Goals Short Term Goals: Dec. Anxiety/Panic, Dec. Hallucination/Delus, Dec. Outbursts, Dec. Symp. Depression, Medication Stabilization, Monitor Med Effects, Promote Coping Skill Short Term Goals in Patient's: I just need to get my Fluffy back Interventions/Frequency Staff Interventions/Frequency&: Psychiatrist to assess pt at least 3x per week for medication mgmt. Social Work to assess pt at least 2x per week to identify barriers to care and final discharge planning. Nursing to assess medication effects, behavior modification and completion of 15 minute checks daily. Encourage participation in group activities (if applicable) or 1:1 engagement based off activity dept goals. History Vocational History: Pt was not able to fully work as her psychiatric troubles prevented her from doing so. 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 Community Follow-up Services at the [facility] Treatment Plan Explained Patient/Tank Bottom Assembler had this treatment plan explained to him/her as indicated by the signature below and has been given the opportunity to ask questions and make suggestions: Date: Patient/Tank Bottom Assembler Signature: Status Update Update Pt is eating 75-100% of meals and sleeping on average 5.5 hours. Pt is somewhat labile in that her behaviors fluctuate from calm, compliant and cooperative to angry, crying and delusional. Pt was noted to be SI this morning and stated that she can use the oxygen to blow herself up and the nurse. Pt was delusional during that time and also "I can see right through you and you're fake. You and staff want me to ". Pt at this time will be in the day room to be monitored and not left in her room. Pt does have oxygen tubing in her room due to her need for intermittent oxygen while working with physical therapy due to desating in the 80's with physical exertion. Since the [facility] has not been able to get pt in to their services, SW will work towards finding placement at a [facility] service connected facility. SW to keep pt and pt family updated on outcomes for placement. FROY KAISER July 19, 2020 17:48
[2020-07-19] MEDS: MELATONIN 3 MG TABLET PO SCH (21:26)
[2020-07-19] MEDS: ATORVASTATIN CALCIUM 20 MG TABLET PO SCH (21:26)
[2020-07-19] MEDS: DIVALPROEX ER 500 MG TAB.ER.24H PO SCH (21:26)
[2020-07-19] MEDS: DIVALPROEX ER 250 MG TAB.ER.24H. PO SCH (21:26)
[2020-07-19] MEDS: rOPINIRole 0.5 MG TABLET. PO SCH (21:27)
[2020-07-20] MEDS: clonazePAM 0.5 MG TABLET PO PRN ×2 (03:02→15:34)
[2020-07-20 05:46] VITALS: BP 133/83
[2020-07-20] MEDS: LEVOTHYROXINE 75 MCG TABLET PO SCH (06:19)
[2020-07-20] MEDS: LIRAGLUTIDE 1.8 MG SQ SCH (07:24)
[2020-07-20] MEDS: NON FORMULARY ITEM (Olodaterol HCl (Striverdi Respimat) 4 GM) IH SCH (07:24)
[2020-07-20] MEDS: SALSALATE 500 MG PO SCH ×2 (08:00→20:51)
[2020-07-20] MEDS: ARIPiprazole 15 MG TABLET PO SCH (08:04)
[2020-07-20] MEDS: CALCIUM CARB/VIT D3 500/200 TABLET PO SCH ×2 (08:05→20:50)
[2020-07-20] MEDS: FUROSEMIDE 40 MG TABLET PO SCH (08:05)
[2020-07-20] MEDS: SENNOSIDES 8.6 MG TABLET PO SCH ×2 (08:05→14:24)
[2020-07-20] MEDS: QUEtiapine 100 MG TABLET. PO SCH ×2 (08:05→20:51)
[2020-07-20] MEDS: FLUoxetine HCL 20 MG CAPSULE PO SCH (08:05)
[2020-07-20] MEDS: POTASSIUM CHLORIDE 20 MEQ TABLET.ER. PO SCH ×2 (08:05→20:50)
[2020-07-20] MEDS: hydrOXYzine HCL 25 MG TABLET PO SCH ×3 (08:05→20:50)
[2020-07-20] MEDS: amLODIPine BESYLATE 5 MG TABLET PO SCH (08:05)
[2020-07-20] MEDS: DOCUSATE SODIUM 100 MG CAPSULE PO SCH ×2 (08:05→20:50)
[2020-07-20] MEDS: PANTOPRAZOLE 40 MG TABLET. PO SCH (08:06)
[2020-07-20] MEDS: METOPROLOL TART IMMED RELEASE 25 MG TABLET. PO SCH ×2 (08:06→20:51)
[2020-07-20] MEDS: ISOSORBIDE MONONITRATE ER 30 MG TAB.ER.24H PO SCH (08:06)
[2020-07-20] MEDS: MINERAL OIL/PETROLATUM TOPICAL CREAM 113GM JAR. TP SCH ×2 (09:00→21:00)
[2020-07-20] MEDS: ASPIRIN ENTERIC COATED 81 MG TABLET.DR. PO SCH (09:00)
[2020-07-20] MEDS: DICLOFENAC SODIUM 1% TOPICAL GEL 100GM TUBE. TP SCH ×4 (09:00→20:52)
--- NOTE | 2020-07-20 15:07 | PN ---
SUBJECTIVE: The patient was seen today, met with the staff, chart reviewed and also participated in the treatment review meeting. Staff reports increased behavior problems, attention seeking, paranoid about the medications, making negative statements, also angry because nobody helping her with the discharge plan. The patient also told the staff she wanted to break the oxygen tank. OBSERVATION: VITAL SIGNS: Temperature 97.4, blood pressure 121/68, pulse 57, respirations 20, O2 sat 91. GENERAL: Slept about hours last night. The patient's appetite is fair. CURRENT MEDICATIONS: The patient's current medications include Prozac 80 mg daily, Depakote 250 mg at night and 500 mg at night, Abilify 15 mg daily, Seroquel 300 mg at night. The patient is also on olanzapine 2.5 mg q. 2 hours p.r.n. for agitation and psychosis. The patient denies of any side effects to medications. ASSESSMENT: 1. Schizoaffective disorder, bipolar type, mixed with psychotic features. 2. Anxiety disorder, unspecified. PLAN: To continue with treatment. LENGTH OF STAY: Seven days. MIKY/KRISTY/PAULINO DR: Azul TID: [id number]
[2020-07-20 15:59] VITALS: BP 153/67
[2020-07-20] MEDS: ATORVASTATIN CALCIUM 20 MG TABLET PO SCH (20:50)
[2020-07-20] MEDS: MELATONIN 3 MG TABLET PO SCH (20:50)
[2020-07-20] MEDS: rOPINIRole 0.5 MG TABLET. PO SCH (20:50)
[2020-07-20] MEDS: DIVALPROEX ER 250 MG TAB.ER.24H. PO SCH (20:51)
[2020-07-20] MEDS: DIVALPROEX ER 500 MG TAB.ER.24H PO SCH (20:51)
--- NOTE | 2020-07-21 01:42 | PN ---
DATE: 07/20/2020 SUBJECTIVE: The patient was seen today, met with the staff. Chart reviewed and also covering for Dr. Escalante. The patient has been medication compliant, mostly appropriate, but still angry, upset, frequent suicidal statements ____ she is not able to get a placement through the [facility]. OBSERVATION: VITAL SIGNS: Temperature 97.8, blood pressure 133/83, pulse 69, respirations 20, O2 sat 96%. Slept about 5 hours last night. The patient's medication remains the same. She is not having any side effects to medications. LABORATORY DATA: The patient's lab reviewed. ASSESSMENT: 1. Schizoaffective disorder, bipolar type, mixed with psychotic features. 2. Anxiety disorder, unspecified. PLAN: To continue with the treatment. LENGTH OF STAY: Seven days. GIORGI DR: Azul TID: [id number]
[2020-07-21] MEDS: LEVOTHYROXINE 75 MCG TABLET PO SCH (04:46)
[2020-07-21] MEDS: clonazePAM 0.5 MG TABLET PO PRN ×2 (04:46→19:44)
[2020-07-21 05:50] VITALS: BP 136/79
[2020-07-21] MEDS: LIRAGLUTIDE 1.8 MG SQ SCH (07:42)
[2020-07-21] MEDS: NON FORMULARY ITEM (Olodaterol HCl (Striverdi Respimat) 4 GM) IH SCH (07:42)
[2020-07-21 07:47] LABS: BASO % 1 % (0-3); EOS # 0.3 x10^3/uL (0.0-0.7); EOS % 5 % (0-3); HEMATOCRIT 35.9 % (36.0-47.0); HEMOGLOBIN 11.6 g/dL (12.0-15.5); LYMPH % 16 % (24-48); MEAN CORPUSCULAR HEMOGLOBIN 27 pg (25-35); MEAN CORPUSCULAR HGB CONC 32 g/dL (31-37); MEAN CORPUSCULAR VOLUME 84 fL (79-100); MONO % 16 % (0-9); NEUT # 3.7 x10^3uL (1.8-7.7); NEUT % 62 % (31-73); PLATELET COUNT 228 x10^3/uL (140-400); RED CELL DISTRIBUTION WIDTH 16.4 % (11.5-14.5)
[2020-07-21 07:55] LABS: ALBUMIN 3.2 g/dL (3.4-5.0); ALBUMIN/GLOBULIN RATIO 0.8 (1.0-1.7); CALCIUM 9.8 mg/dL (8.5-10.1); CREATININE 0.9 mg/dL (0.6-1.0); GFR 62.5; POTASSIUM 4.6 mmol/L (3.5-5.1); TOTAL BILIRUBIN 0.3 mg/dL (0.2-1.0); TOTAL PROTEIN 7.2 g/dL (6.4-8.2)
[2020-07-21] MEDS: ISOSORBIDE MONONITRATE ER 30 MG TAB.ER.24H PO SCH (08:00)
[2020-07-21] MEDS: FLUoxetine HCL 20 MG CAPSULE PO SCH (08:00)
[2020-07-21] MEDS: ASPIRIN ENTERIC COATED 81 MG TABLET.DR. PO SCH (08:00)
[2020-07-21] MEDS: POTASSIUM CHLORIDE 20 MEQ TABLET.ER. PO SCH ×2 (08:00→19:42)
[2020-07-21] MEDS: ARIPiprazole 15 MG TABLET PO SCH (08:00)
[2020-07-21] MEDS: FUROSEMIDE 40 MG TABLET PO SCH (08:00)
[2020-07-21] MEDS: hydrOXYzine HCL 25 MG TABLET PO SCH ×3 (08:01→19:42)
[2020-07-21] MEDS: METOPROLOL TART IMMED RELEASE 25 MG TABLET. PO SCH ×2 (08:01→19:41)
[2020-07-21] MEDS: DOCUSATE SODIUM 100 MG CAPSULE PO SCH ×2 (08:01→19:43)
[2020-07-21] MEDS: PANTOPRAZOLE 40 MG TABLET. PO SCH (08:02)
[2020-07-21] MEDS: SENNOSIDES 8.6 MG TABLET PO SCH ×2 (08:02→12:14)
[2020-07-21] MEDS: CALCIUM CARB/VIT D3 500/200 TABLET PO SCH ×2 (08:02→19:43)
[2020-07-21] MEDS: QUEtiapine 100 MG TABLET. PO SCH ×2 (08:02→19:41)
[2020-07-21] MEDS: amLODIPine BESYLATE 5 MG TABLET PO SCH (08:02)
[2020-07-21] MEDS: SALSALATE 500 MG PO SCH ×2 (08:03→19:42)
[2020-07-21] MEDS: DICLOFENAC SODIUM 1% TOPICAL GEL 100GM TUBE. TP SCH ×4 (09:00→19:43)
[2020-07-21] MEDS: MINERAL OIL/PETROLATUM TOPICAL CREAM 113GM JAR. TP SCH ×2 (09:00→19:43)
[2020-07-21 15:52] VITALS: BP 148/71
[2020-07-21] MEDS: ATORVASTATIN CALCIUM 20 MG TABLET PO SCH (19:42)
[2020-07-21] MEDS: DIVALPROEX ER 250 MG TAB.ER.24H. PO SCH (19:42)
[2020-07-21] MEDS: MELATONIN 3 MG TABLET PO SCH (19:42)
[2020-07-21] MEDS: DIVALPROEX ER 500 MG TAB.ER.24H PO SCH (19:43)
[2020-07-21] MEDS: rOPINIRole 0.5 MG TABLET. PO SCH (19:43)
--- NOTE | 2020-07-22 02:03 | PN ---
DATE: 07/21/2020 SUBJECTIVE: The patient was seen today, met with the staff, chart reviewed. The patient continues to isolate herself in her room. Continues to have the mood swings, irritability. Today, she is much more pleasant. Staff reports that she has been medication compliant and more social ____ engaging with the staff, still depressed and blunting of affect. OBSERVATION: VITAL SIGNS: Temperature 97.8, blood pressure 136/79, pulse 63, respirations 18, O2 sat 94%. Slept about 6 hours last night. The patient's appetite is fair. MEDICATIONS: Reviewed. LABORATORY DATA: Reviewed. ASSESSMENT: 1. Schizoaffective disorder, bipolar type, mixed with psychotic features. 2. Anxiety disorder, unspecified. PLAN: To continue with the treatment. LENGTH OF STAY: 7 days. MIKY/MALATHI/JB DR: Azul TID: [id number]
[2020-07-22] MEDS: LEVOTHYROXINE 75 MCG TABLET PO SCH (05:56)
[2020-07-22 06:08] VITALS: BP 143/72
[2020-07-22] MEDS: LIRAGLUTIDE 1.8 MG SQ SCH (08:00)
[2020-07-22] MEDS: NON FORMULARY ITEM (Olodaterol HCl (Striverdi Respimat) 4 GM) IH SCH (08:00)
[2020-07-22] MEDS: DICLOFENAC SODIUM 1% TOPICAL GEL 100GM TUBE. TP SCH ×4 (09:00→21:07)
[2020-07-22] MEDS: MINERAL OIL/PETROLATUM TOPICAL CREAM 113GM JAR. TP SCH ×2 (09:00→21:07)
[2020-07-22] MEDS: clonazePAM 0.5 MG TABLET PO PRN ×2 (09:02→21:05)
[2020-07-22] MEDS: FLUoxetine HCL 20 MG CAPSULE PO SCH (09:02)
[2020-07-22] MEDS: CALCIUM CARB/VIT D3 500/200 TABLET PO SCH ×2 (09:02→21:05)
[2020-07-22] MEDS: PANTOPRAZOLE 40 MG TABLET. PO SCH (09:02)
[2020-07-22] MEDS: ISOSORBIDE MONONITRATE ER 30 MG TAB.ER.24H PO SCH (09:02)
[2020-07-22] MEDS: ARIPiprazole 15 MG TABLET PO SCH (09:03)
[2020-07-22] MEDS: ASPIRIN ENTERIC COATED 81 MG TABLET.DR. PO SCH (09:03)
[2020-07-22] MEDS: POTASSIUM CHLORIDE 20 MEQ TABLET.ER. PO SCH ×2 (09:03→21:05)
[2020-07-22] MEDS: hydrOXYzine HCL 25 MG TABLET PO SCH ×3 (09:03→21:05)
[2020-07-22] MEDS: DOCUSATE SODIUM 100 MG CAPSULE PO SCH ×2 (09:03→21:05)
[2020-07-22] MEDS: QUEtiapine 100 MG TABLET. PO SCH ×2 (09:03→21:06)
[2020-07-22] MEDS: traMADol 50 MG TABLET PO PRN (09:03)
[2020-07-22] MEDS: SENNOSIDES 8.6 MG TABLET PO SCH ×2 (09:03→12:10)
[2020-07-22] MEDS: METOPROLOL TART IMMED RELEASE 25 MG TABLET. PO SCH ×2 (09:04→21:07)
[2020-07-22] MEDS: amLODIPine BESYLATE 5 MG TABLET PO SCH (09:04)
[2020-07-22] MEDS: FUROSEMIDE 40 MG TABLET PO SCH (09:04)
[2020-07-22] MEDS: SALSALATE 500 MG PO SCH ×2 (09:05→21:05)
[2020-07-22 16:03] VITALS: BP 135/76
[2020-07-22] MEDS: rOPINIRole 0.5 MG TABLET. PO SCH (21:05)
[2020-07-22] MEDS: ATORVASTATIN CALCIUM 20 MG TABLET PO SCH (21:05)
[2020-07-22] MEDS: MELATONIN 3 MG TABLET PO SCH (21:06)
[2020-07-22] MEDS: DIVALPROEX ER 250 MG TAB.ER.24H. PO SCH (21:06)
[2020-07-22] MEDS: DIVALPROEX ER 500 MG TAB.ER.24H PO SCH (21:06)
--- NOTE | 2020-07-22 23:22 | PN ---
DATE: 07/22/2020 SUBJECTIVE: The patient was seen today, met with the staff, chart reviewed, and also covering for Dr. Escalante. The patient's behavior has improved, pleasant today. Able to hold a conversation. She is still upset with the delay in discharge. She knows that she is on the [facility]. Staff reports she is med compliant, also depressed with blunting of affect. The patient's medications and lab reviewed, not having any side effects. ASSESSMENT: 1. Schizoaffective disorder, bipolar type, mixed with psychotic features. 2. Anxiety disorder, unspecified. PLAN: To continue with the treatment. LENGTH OF STAY: Seven days. MARLENY DR: Azul TID: [id number]
[2020-07-23 06:01] VITALS: BP 123/60
[2020-07-23] MEDS: LEVOTHYROXINE 75 MCG TABLET PO SCH (06:11)
[2020-07-23] MEDS: NON FORMULARY ITEM (Olodaterol HCl (Striverdi Respimat) 4 GM) IH SCH (08:00)
[2020-07-23] MEDS: LIRAGLUTIDE 1.8 MG SQ SCH (08:00)
[2020-07-23] MEDS: SENNOSIDES 8.6 MG TABLET PO SCH ×2 (08:18→12:19)
[2020-07-23] MEDS: amLODIPine BESYLATE 5 MG TABLET PO SCH (08:18)
[2020-07-23] MEDS: ISOSORBIDE MONONITRATE ER 30 MG TAB.ER.24H PO SCH (08:19)
[2020-07-23] MEDS: DOCUSATE SODIUM 100 MG CAPSULE PO SCH ×2 (08:19→20:48)
[2020-07-23] MEDS: POTASSIUM CHLORIDE 20 MEQ TABLET.ER. PO SCH ×2 (08:19→20:48)
[2020-07-23] MEDS: PANTOPRAZOLE 40 MG TABLET. PO SCH (08:19)
[2020-07-23] MEDS: QUEtiapine 100 MG TABLET. PO SCH ×2 (08:19→20:50)
[2020-07-23] MEDS: CALCIUM CARB/VIT D3 500/200 TABLET PO SCH ×2 (08:19→20:48)
[2020-07-23] MEDS: ASPIRIN ENTERIC COATED 81 MG TABLET.DR. PO SCH (08:20)
[2020-07-23] MEDS: ARIPiprazole 15 MG TABLET PO SCH (08:20)
[2020-07-23] MEDS: hydrOXYzine HCL 25 MG TABLET PO SCH ×3 (08:20→20:48)
[2020-07-23] MEDS: METOPROLOL TART IMMED RELEASE 25 MG TABLET. PO SCH ×2 (08:20→20:49)
[2020-07-23] MEDS: FUROSEMIDE 40 MG TABLET PO SCH (08:20)
[2020-07-23] MEDS: FLUoxetine HCL 20 MG CAPSULE PO SCH (08:20)
[2020-07-23] MEDS: SALSALATE 500 MG PO SCH ×2 (08:21→20:49)
[2020-07-23] MEDS: CHOLECALCIFEROL (VITAMIN D3) 50,000 UNIT CAPSULE PO SCH (08:22)
[2020-07-23] MEDS: MINERAL OIL/PETROLATUM TOPICAL CREAM 113GM JAR. TP SCH ×2 (08:26→20:52)
[2020-07-23] MEDS: DICLOFENAC SODIUM 1% TOPICAL GEL 100GM TUBE. TP SCH ×4 (08:27→20:52)
[2020-07-23] MEDS: clonazePAM 0.5 MG TABLET PO PRN (12:53)
[2020-07-23 15:56] VITALS: BP 109/65
[2020-07-23] MEDS: ATORVASTATIN CALCIUM 20 MG TABLET PO SCH (20:48)
[2020-07-23] MEDS: MELATONIN 3 MG TABLET PO SCH (20:48)
[2020-07-23] MEDS: rOPINIRole 0.5 MG TABLET. PO SCH (20:48)
[2020-07-23] MEDS: DIVALPROEX ER 250 MG TAB.ER.24H. PO SCH (20:49)
[2020-07-23] MEDS: DIVALPROEX ER 500 MG TAB.ER.24H PO SCH (20:49)
--- NOTE | 2020-07-24 03:17 | PN ---
DATE: 07/23/2020 SUBJECTIVE: The patient was seen today met with the staff, chart reviewed and also covering for Dr. Escalante. Staff reports that her behavior has improved. She is less irritable and angry. Able to interact with the staff. Still has some depression, but no suicidal thoughts. OBSERVATION: Vital Signs: Temperature 96.0, blood pressure 123/60, pulse 88, respirations 20, O2 sat 95%. Slept about 5 hours last night. The patient's appetite improved. The patient's medications reviewed and she is not having any side effects. LABORATORY DATA: The patient's lab reviewed. ASSESSMENT: 1. Schizoaffective disorder, bipolar type, mixed with psychotic features. 2. Anxiety disorder, unspecified. PLAN: To continue with the treatment. LENGTH OF STAY: [address]: Azul TID: [id number]
[2020-07-24] MEDS: LEVOTHYROXINE 75 MCG TABLET PO SCH (05:48)
[2020-07-24 06:11] VITALS: BP 146/79
[2020-07-24] MEDS: LIRAGLUTIDE 1.8 MG SQ SCH (08:00)
[2020-07-24] MEDS: NON FORMULARY ITEM (Olodaterol HCl (Striverdi Respimat) 4 GM) IH SCH (08:00)
[2020-07-24] MEDS: QUEtiapine 100 MG TABLET. PO SCH ×2 (08:33→21:14)
[2020-07-24] MEDS: DOCUSATE SODIUM 100 MG CAPSULE PO SCH ×2 (08:33→21:16)
[2020-07-24] MEDS: SENNOSIDES 8.6 MG TABLET PO SCH ×2 (08:34→12:24)
[2020-07-24] MEDS: POTASSIUM CHLORIDE 20 MEQ TABLET.ER. PO SCH ×2 (08:34→21:16)
[2020-07-24] MEDS: CALCIUM CARB/VIT D3 500/200 TABLET PO SCH ×2 (08:34→21:15)
[2020-07-24] MEDS: SALSALATE 500 MG PO SCH ×3 (08:34→22:51)
[2020-07-24] MEDS: ISOSORBIDE MONONITRATE ER 30 MG TAB.ER.24H PO SCH (08:34)
[2020-07-24] MEDS: METOPROLOL TART IMMED RELEASE 25 MG TABLET. PO SCH ×2 (08:35→21:16)
[2020-07-24] MEDS: FUROSEMIDE 40 MG TABLET PO SCH (08:35)
[2020-07-24] MEDS: ARIPiprazole 15 MG TABLET PO SCH (08:35)
[2020-07-24] MEDS: amLODIPine BESYLATE 5 MG TABLET PO SCH (08:35)
[2020-07-24] MEDS: FLUoxetine HCL 20 MG CAPSULE PO SCH (08:35)
[2020-07-24] MEDS: hydrOXYzine HCL 25 MG TABLET PO SCH ×3 (08:35→21:15)
[2020-07-24] MEDS: ASPIRIN ENTERIC COATED 81 MG TABLET.DR. PO SCH (08:36)
[2020-07-24] MEDS: PANTOPRAZOLE 40 MG TABLET. PO SCH (08:36)
[2020-07-24] MEDS: DICLOFENAC SODIUM 1% TOPICAL GEL 100GM TUBE. TP SCH ×4 (08:39→21:17)
[2020-07-24] MEDS: MINERAL OIL/PETROLATUM TOPICAL CREAM 113GM JAR. TP SCH ×2 (08:39→20:17)
[2020-07-24] MEDS: clonazePAM 0.5 MG TABLET PO PRN (09:37)
[2020-07-24] MEDS: MELATONIN 3 MG TABLET PO SCH (21:15)
[2020-07-24] MEDS: DIVALPROEX ER 250 MG TAB.ER.24H. PO SCH (21:16)
[2020-07-24] MEDS: ATORVASTATIN CALCIUM 20 MG TABLET PO SCH (21:16)
[2020-07-24] MEDS: rOPINIRole 0.5 MG TABLET. PO SCH (21:16)
[2020-07-24] MEDS: DIVALPROEX ER 500 MG TAB.ER.24H PO SCH (21:16)
[2020-07-24 22:58] VITALS: BP 112/70
[2020-07-25] MEDS: LEVOTHYROXINE 75 MCG TABLET PO SCH (05:52)
[2020-07-25 05:57] VITALS: BP 117/77
[2020-07-25] MEDS: NON FORMULARY ITEM (Olodaterol HCl (Striverdi Respimat) 4 GM) IH SCH (08:00)
[2020-07-25] MEDS: LIRAGLUTIDE 1.8 MG SQ SCH (08:00)
[2020-07-25] MEDS: ASPIRIN ENTERIC COATED 81 MG TABLET.DR. PO SCH (08:09)
[2020-07-25] MEDS: DOCUSATE SODIUM 100 MG CAPSULE PO SCH ×2 (08:09→21:12)
[2020-07-25] MEDS: SALSALATE 500 MG PO SCH (08:10)
[2020-07-25] MEDS: FLUoxetine HCL 20 MG CAPSULE PO SCH (08:10)
[2020-07-25] MEDS: PANTOPRAZOLE 40 MG TABLET. PO SCH (08:10)
[2020-07-25] MEDS: SENNOSIDES 8.6 MG TABLET PO SCH ×2 (08:10→11:41)
[2020-07-25] MEDS: amLODIPine BESYLATE 5 MG TABLET PO SCH (08:10)
[2020-07-25] MEDS: METOPROLOL TART IMMED RELEASE 25 MG TABLET. PO SCH ×2 (08:11→21:12)
[2020-07-25] MEDS: POTASSIUM CHLORIDE 20 MEQ TABLET.ER. PO SCH ×2 (08:11→21:12)
[2020-07-25] MEDS: CALCIUM CARB/VIT D3 500/200 TABLET PO SCH ×2 (08:11→21:11)
[2020-07-25] MEDS: ISOSORBIDE MONONITRATE ER 30 MG TAB.ER.24H PO SCH (08:11)
[2020-07-25] MEDS: hydrOXYzine HCL 25 MG TABLET PO SCH ×3 (08:11→21:13)
[2020-07-25] MEDS: FUROSEMIDE 40 MG TABLET PO SCH (08:12)
[2020-07-25] MEDS: ARIPiprazole 15 MG TABLET PO SCH (08:12)
[2020-07-25] MEDS: QUEtiapine 100 MG TABLET. PO SCH ×2 (08:12→21:13)
[2020-07-25] MEDS: DICLOFENAC SODIUM 1% TOPICAL GEL 100GM TUBE. TP SCH ×4 (08:13→21:14)
[2020-07-25] MEDS: MINERAL OIL/PETROLATUM TOPICAL CREAM 113GM JAR. TP SCH ×2 (08:13→21:00)
[2020-07-25] MEDS: clonazePAM 0.5 MG TABLET PO PRN (11:41)
[2020-07-25 16:16] VITALS: BP 154/85
[2020-07-25] MEDS: MELATONIN 3 MG TABLET PO SCH (21:11)
[2020-07-25] MEDS: ATORVASTATIN CALCIUM 20 MG TABLET PO SCH (21:12)
[2020-07-25] MEDS: DIVALPROEX ER 500 MG TAB.ER.24H PO SCH (21:12)
[2020-07-25] MEDS: DIVALPROEX ER 250 MG TAB.ER.24H. PO SCH (21:12)
[2020-07-25] MEDS: rOPINIRole 0.5 MG TABLET. PO SCH (21:13)
--- NOTE | 2020-07-26 00:35 | PN ---
DATE: 07/25/2020 SUBJECTIVE: The patient was seen today, met with the staff, chart reviewed. The patient met with the social media marketing analyst and she is working towards discharge and also concerns about her aftercare treatment for lung cancer, which was surgically removed. The patient at times feeling helpless and hopeless and periods for depression, but not having any suicidal thoughts or plans. OBSERVATION: VITAL SIGNS: Temperature 98.1, blood pressure 117/77, pulse 56, respirations 16, O2 sat 97%. Slept about 7 hours last night. MEDICATIONS: The patient's medications reviewed and she is not having any side effects. LABORATORY DATA: The patient's lab reviewed. ASSESSMENT: 1. Schizoaffective disorder, bipolar type, mixed with psychotic features. 2. Anxiety disorder, unspecified. PLAN: To continue with the treatment. LENGTH OF STAY: Seven days. CAITLIN DR: Azul TID: [id number]
--- NOTE | 2020-07-26 00:39 | PN ---
DATE: 07/24/2020 This is the late entry for the service date 07/24/2020 SUBJECTIVE: The patient was seen today, met Telehealth, discussed with the staff and chart reviewed. The patient continues to show improvement. The patient has not presented with any major behavior problems. The patient is still having difficulty with breathing, shortness of breath. The patient apparently was using inhalers at home. He would like to have something to help with the breathing. The patient's medications reviewed, not having any side effects. LABORATORY DATA: The patient's lab reviewed. ASSESSMENT: 1. Schizoaffective disorder, bipolar type, mixed with psychotic features. 2. Anxiety disorder, unspecified. PLAN: To continue with the treatment. LENGTH OF STAY: Five to seven days. JONATHON DR: Azul TID: [id number]
--- NOTE | 2020-07-26 00:49 | PN ---
DATE: 07/25/2020 SUBJECTIVE: The patient was seen today at the request of the nursing staff as they stated that she has been complaining of shortness of breath and has some crackles and wheezes, more on the right lung. She is known to have lung cancer and has had left side pleural effusion for which she underwent thoracentesis more than a month ago. At one point in time, there was a plan for her to be seen at the [facility] to continue the chemotherapy for somehow that arrangement has not happened. When I am questioning her today, she did complain of shortness of breath, but denied any orthopnea or paroxysmal nocturnal dyspnea. She does have cough that seems to be with no chest pain. OBJECTIVE: GENERAL: When I examined her, she was somewhat pale. No jaundice or cyanosis, no lymphadenopathy, no thyromegaly, no jugular venous distention, no limb edema. VITAL SIGNS: Heart rate was 67, blood pressure was 154/85, temperature was 97.3, respiratory rate was 18 and oxygen saturation was 94%. HEAD, EYES, EARS, NOSE AND THROAT: Normocephalic, atraumatic. NECK: Supple. HEART: Normal first and second heart sounds. No gallop, rub or murmur. CHEST: Central trachea, equal bilateral chest expansion, air entry, vesicular breath sounds. No crepitation or rhonchi anteriorly. She has dull percussion noted and absent breath sounds posteriorly on the left side. She does have few crackles on the right side posteriorly. I could not appreciate any rhonchi. ABDOMEN: Distended, soft, nontender. NEUROLOGIC: She is awake, alert, responding appropriately. All cranial nerves intact. She moves extremities without difficulty, although she is mostly wheelchair bound. ASSESSMENT: Worsening shortness of breath and probably increase in size and the left side pleural effusion in a patient with underlying lung cancer. PLAN: My plan is to repeat her chest x-ray arranged for her to have a PA and lateral view. We will repeat all her lab work including a CBC, a CMP and BMP and I will evaluate her again tomorrow. NIMA BEAVERS: Lore TID: [id number]
[2020-07-26 05:46] VITALS: BP 161/67
[2020-07-26] MEDS: LEVOTHYROXINE 75 MCG TABLET PO SCH (05:59)
[2020-07-26] MEDS: LIRAGLUTIDE 1.8 MG SQ SCH (08:00)
[2020-07-26] MEDS: NON FORMULARY ITEM (Olodaterol HCl (Striverdi Respimat) 4 GM) IH SCH (08:00)
--- NOTE | 2020-07-26 08:10 | RAD ---
EXAM: Chest, 2 views. HISTORY: Worsening shortness of breath. COMPARISON: 06/26/2020 FINDINGS: 2 views of the chest are obtained. There is stable right upper lobe predominant increased i nterstitial opacity. There is a stable small to moderate left pleural effusion and elevation of the l eft hemidiaphragm. There is a stable prominent cardiac silhouette. There is stable right hemithorax v olume loss with rightward shift of the trachea. IMPRESSION: 1. Stable suspected interstitial infiltrate with suspected superimposed right upper lobe fibrosis. 2. Stable small to moderate left pleural effusion and elevation of the left hemidiaphragm. Electronically signed by: Kourtney Osman MD (07/26/2020 8:07 AM) [id number]
[2020-07-26] MEDS: SALSALATE 500 MG PO SCH ×2 (08:27→21:00)
[2020-07-26] MEDS: ASPIRIN ENTERIC COATED 81 MG TABLET.DR. PO SCH (08:27)
[2020-07-26] MEDS: ARIPiprazole 15 MG TABLET PO SCH (08:28)
[2020-07-26] MEDS: PANTOPRAZOLE 40 MG TABLET. PO SCH (08:28)
[2020-07-26] MEDS: DOCUSATE SODIUM 100 MG CAPSULE PO SCH ×2 (08:28→20:58)
[2020-07-26] MEDS: FUROSEMIDE 40 MG TABLET PO SCH (08:28)
[2020-07-26] MEDS: hydrOXYzine HCL 25 MG TABLET PO SCH ×3 (08:28→21:01)
[2020-07-26] MEDS: POTASSIUM CHLORIDE 20 MEQ TABLET.ER. PO SCH ×2 (08:29→20:59)
[2020-07-26] MEDS: CALCIUM CARB/VIT D3 500/200 TABLET PO SCH ×2 (08:29→20:59)
[2020-07-26] MEDS: ISOSORBIDE MONONITRATE ER 30 MG TAB.ER.24H PO SCH (08:29)
[2020-07-26] MEDS: SENNOSIDES 8.6 MG TABLET PO SCH ×2 (08:29→13:27)
[2020-07-26] MEDS: QUEtiapine 100 MG TABLET. PO SCH ×2 (08:29→21:01)
[2020-07-26] MEDS: amLODIPine BESYLATE 5 MG TABLET PO SCH (08:30)
[2020-07-26] MEDS: METOPROLOL TART IMMED RELEASE 25 MG TABLET. PO SCH ×2 (08:30→21:00)
[2020-07-26] MEDS: FLUoxetine HCL 20 MG CAPSULE PO SCH (08:30)
[2020-07-26] MEDS: MINERAL OIL/PETROLATUM TOPICAL CREAM 113GM JAR. TP SCH ×2 (08:48→21:00)
[2020-07-26] MEDS: DICLOFENAC SODIUM 1% TOPICAL GEL 100GM TUBE. TP SCH ×4 (08:48→21:06)
[2020-07-26 09:52] LABS: HEMATOCRIT 34.5 % (36.0-47.0); HEMOGLOBIN 11.2 g/dL (12.0-15.5); RED BLOOD COUNT 4.14 x10^6/uL (3.50-5.40); RED CELL DISTRIBUTION WIDTH 16.5 % (11.5-14.5); WHITE BLOOD COUNT 6.4 x10^3/uL (4.0-11.0)
[2020-07-26 10:10] LABS: ALBUMIN 3.1 g/dL (3.4-5.0); ALBUMIN/GLOBULIN RATIO 0.8 (1.0-1.7); CALCIUM 9.1 mg/dL (8.5-10.1); CREATININE 0.8 mg/dL (0.6-1.0); GFR 71.5; POTASSIUM 4.6 mmol/L (3.5-5.1); TOTAL BILIRUBIN 0.3 mg/dL (0.2-1.0); TOTAL PROTEIN 6.9 g/dL (6.4-8.2)
--- NOTE | 2020-07-26 15:01 | TX PLAN ---
Interdisciplinary Tx Plan Admission Information Jun 21, 2020 at 13:15 Legal Status (on Admission): Voluntary DPOA/Guardian Name: Felix Moscoso Contact Other Contact Name: Emigdio Cantrell Other Contact Verified Code Status: Full Code Allergies: Coded Allergies: chlorpromazine (Verified Allergy, Unknown, 06/07/20) diphenhydramine (Verified Allergy, Unknown, 06/07/20) lisinopril (Verified Allergy, Unknown, 06/07/20) simvastatin (Verified Allergy, Unknown, 06/07/20) Diagnoses Primary Diagnosis: Schizoaffective D/O Reasons for Admission: Delusions, Other Problem in Patient's Words: NA Additional Admission Comments: Pt was re-admitted to [facility] on 06/21 after having a Thoracentesis and 24 hour observation on ICU. Pt is labile and mostly tearful. Previous admission stated pt is paranoid,having multiple times in her head causing an abrasion, anxious and making statements of "I just want to end this" Problems Active Problems: delusional labile mood anxious Inactive Problems: medication management Pt Strengths/Limitations Ability for [place]: Poor Cognitive Functioning/Ability: Fair Communication Skills/Ability: Fair Financial Resources: Fair Insight/Judgement: Poor Intellectual Ability: Fair Physical Health: Poor Social Skills: Fair Stability in Family: Fair Stability in School/Work: Poor Verbal Skills: Fair Discharge Criteria Discharge Criteria: No need for close observ., Adequate arrangements @DC, Improved behavior, Improved mood/thought Special Precautions Fall Risk: Moderate Initial D/C Plan Pt will need placement at discharge. Identified Discharge Needs: Referrals for higher level of care Currently Utilized Resources Currently Utilized Resources/P: [facility] services : PCP, Psychiatrist, Counseling, land surveying manager Identified Problems/Hx/Goals Objectives/Short-Term Goals Short Term Goals: Dec. Anxiety/Panic, Dec. Hallucination/Delus, Dec. Outbursts, Dec. Symp. Depression, Medication Stabilization, Monitor Med Effects, Promote Coping Skill Short Term Goals in Patient's: I just need to get my Fluffy back Interventions/Frequency Staff Interventions/Frequency&: Psychiatrist to assess pt at least 3x per week for medication mgmt. Social Work to assess pt at least 2x per week to identify barriers to care and final discharge planning. Nursing to assess medication effects, behavior modification and completion of 15 minute checks daily. Encourage participation in group activities (if applicable) or 1:1 engagement based off activity dept goals. History Vocational History: Pt was not able to fully work as her psychiatric troubles prevented her from doing so. 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 Community Follow-up Services at the [facility] Treatment Plan Explained Patient/Shop Service Technician had this treatment plan explained to him/her as indicated by the signature below and has been given the opportunity to ask questions and make suggestions: Date: Patient/Shop Service Technician Signature: Status Update Update Pt is eating between 75-100% of meals and sleeping on average 5.5 hours per n ight. Pt is medication compliant but flat affect. Pt is very paranoid and suspicious stating "just watch what happens". Pt was evaluated yesterday for PASSR screening for placement. will send out referrals for placement near the [facility] that is 100% [place] service connected. FROY KAISER July 26, 2020 15:01
[2020-07-26 16:13] VITALS: BP 115/76
[2020-07-26] MEDS: MELATONIN 3 MG TABLET PO SCH (20:58)
[2020-07-26] MEDS: DIVALPROEX ER 250 MG TAB.ER.24H. PO SCH (20:59)
[2020-07-26] MEDS: DIVALPROEX ER 500 MG TAB.ER.24H PO SCH (20:59)
[2020-07-26] MEDS: ATORVASTATIN CALCIUM 20 MG TABLET PO SCH (21:00)
[2020-07-26] MEDS: rOPINIRole 0.5 MG TABLET. PO SCH (21:00)
--- NOTE | 2020-07-26 22:23 | PN ---
DATE: 07/26/2020 SUBJECTIVE: The patient was seen today, met with the staff, chart reviewed, and also participated in the treatment review meeting. The patient apparently has shown some improvement, still having mood swings and withdrawn, still has periods of depression. Apparently, the [facility] is refusing to take her for residential care and perinatal social worker is exploring other options. OBSERVATION: VITAL SIGNS: Temperature 97.1, blood pressure 115/76, pulse 63, respirations 18, O2 sat 96%. GENERAL: The patient is still having problems with her sleep, but the appetite has improved. MEDICATIONS: Reviewed and she is not having any side effects. LABORATORY DATA: The patient's lab reviewed. ASSESSMENT: 1. Schizoaffective disorder, bipolar type, mixed with psychotic features. 2. Anxiety disorder, unspecified. PLAN: Continue with the treatment. LENGTH OF STAY: Five to seven days. END DR: Azul TID: [id number]
[2020-07-27] MEDS: LEVOTHYROXINE 75 MCG TABLET PO SCH (06:00)
[2020-07-27 06:14] VITALS: BP 119/71
[2020-07-27] MEDS: LIRAGLUTIDE 1.8 MG SQ SCH (08:00)
[2020-07-27] MEDS: NON FORMULARY ITEM (Olodaterol HCl (Striverdi Respimat) 4 GM) IH SCH (08:00)
[2020-07-27] MEDS ORDERED: IOHEXOL 350 MG/ML 100 ML VIAL. IV ONE (08:30)
[2020-07-27] MEDS: SENNOSIDES 8.6 MG TABLET PO SCH ×2 (08:54→12:15)
[2020-07-27] MEDS: hydrOXYzine HCL 25 MG TABLET PO SCH ×3 (08:54→20:42)
[2020-07-27] MEDS: DOCUSATE SODIUM 100 MG CAPSULE PO SCH ×2 (08:54→20:41)
[2020-07-27] MEDS: CALCIUM CARB/VIT D3 500/200 TABLET PO SCH ×2 (08:54→20:41)
[2020-07-27] MEDS: QUEtiapine 100 MG TABLET. PO SCH ×2 (08:54→20:42)
[2020-07-27] MEDS: PANTOPRAZOLE 40 MG TABLET. PO SCH (08:54)
[2020-07-27] MEDS: FLUoxetine HCL 20 MG CAPSULE PO SCH (08:55)
[2020-07-27] MEDS: METOPROLOL TART IMMED RELEASE 25 MG TABLET. PO SCH ×2 (08:55→20:41)
[2020-07-27] MEDS: ARIPiprazole 15 MG TABLET PO SCH (08:55)
[2020-07-27] MEDS: ASPIRIN ENTERIC COATED 81 MG TABLET.DR. PO SCH (08:56)
[2020-07-27] MEDS: ISOSORBIDE MONONITRATE ER 30 MG TAB.ER.24H PO SCH (08:56)
[2020-07-27] MEDS: amLODIPine BESYLATE 5 MG TABLET PO SCH (08:56)
[2020-07-27] MEDS: FUROSEMIDE 40 MG TABLET PO SCH (08:57)
[2020-07-27] MEDS: SALSALATE 500 MG PO SCH ×2 (08:57→20:42)
[2020-07-27] MEDS: POTASSIUM CHLORIDE 20 MEQ TABLET.ER. PO SCH ×2 (08:57→20:42)
[2020-07-27] MEDS: DICLOFENAC SODIUM 1% TOPICAL GEL 100GM TUBE. TP SCH ×4 (09:00→20:43)
[2020-07-27] MEDS: MINERAL OIL/PETROLATUM TOPICAL CREAM 113GM JAR. TP SCH ×2 (09:00→20:43)
--- NOTE | 2020-07-27 11:43 | RAD ---
EXAM: CT angiography of the chest with intravenous contrast. HISTORY: Shortness of breath. TECHNIQUE: Computed tomographic images of the chest were obtained following the administration of int ravenous contrast according to angiography protocol. Multiplanar reformatting was performed and three dimensional maximum intensity projection images were obtained. *One or more of the following individualized dose reduction techniques were utilized for this examina tion: 1. Automated exposure control. 2. Adjustment of the mA and/or kV according to patient size. 3. Use of iterative reconstruction technique. COMPARISON: None. FINDINGS: There is no evidence of pulmonary embolism. Evaluation of the distal pulmonary arteries is limited due to slight respiratory motion. There is a moderate partially loculated left pleural effusi on. There is right upper and lower lobe interstitial infiltrate likely superimposed on chronic inters titial lung disease. There is mild emphysema. There is bilateral posterior dependent atelectasis. The re is severe right glenohumeral osteoarthritis and a right shoulder joint effusion, partially include d on the [id number]. The heart is upper normal in size. There is calcified atherosclerotic plaque involving the arch great vessels and coronary arteries. There are several a prominent central pulmonary arteries suggesting a component of pulmonary artery hypertension. There are prominent mediastinal and right hilar lymph no obinna. These may be reactive in etiology. There is a 1.7 cm cyst within the upper pole of the right kid erlinda. Follow-up is not routinely performed for simple cysts. There is a 7 mm ill-defined hypodense les ion within the left hepatic lobe, too small to characterize. There is no acute finding involving the upper abdomen. There is no acute osseous finding. IMPRESSION: 1. No convincing pulmonary embolism. 2. No significant change in a moderate partially loculated left pleural effusion and suspected right upper lower lobe infiltrate superimposed on chronic interstitial lung disease. 3. Stable enlarged mediastinal and right hilar lymph nodes. These may be reactive or neoplastic in et iology. 4. Stable small ill-defined hypodense lesion within the left hepatic lobe. This is too small to abhinav cterize. This may be visible sonographically. 5. Incidental right glenohumeral osteoarthritis with shoulder joint effusion. Electronically signed by: Kourtney Osman MD (07/27/2020 11:41 AM) [id number]
[2020-07-27 15:45] VITALS: BP 111/72
[2020-07-27] MEDS: DIVALPROEX ER 250 MG TAB.ER.24H. PO SCH (20:40)
[2020-07-27] MEDS: DIVALPROEX ER 500 MG TAB.ER.24H PO SCH (20:40)
[2020-07-27] MEDS: MELATONIN 3 MG TABLET PO SCH (20:40)
[2020-07-27] MEDS: ATORVASTATIN CALCIUM 20 MG TABLET PO SCH (20:40)
[2020-07-27] MEDS: LACTOBACILLUS RHAMNOSUS GG 1 CAPSULE. PO SCH (20:41)
[2020-07-27] MEDS: rOPINIRole 0.5 MG TABLET. PO SCH (20:42)
[2020-07-27] MEDS: AMOXICILLIN/K CLAV 875/125MG TABLET. PO SCH (20:42)
--- NOTE | 2020-07-27 23:28 | PN ---
DATE: 07/27/2020 SUBJECTIVE: The patient was evaluated for shortness of breath and according to nursing staff, she has had crackles and wheezing, mostly on the right side. The patient is known to have lung cancer and has had left-sided pleural effusion, for which she underwent thoracentesis more than a month ago. We did order lab work including a CBC and a comprehensive metabolic profile. Her white cell count continued to be normal at 6400. Her chemistry was mostly unremarkable. We did actually a chest x-ray which showed the patient has stable suspected interstitial infiltrate with suspected superimposed right upper lobe fibrosis. She has stable small to moderate left-sided pleural effusion and elevation of the left hemidiaphragm. I did order x-rays, CT angio of the chest, which showed that the patient has no convincing pulmonary embolism. No significant change in moderate partially loculated left pleural effusion and suspected right upper lobe infiltrate superimposed on chronic interstitial lung disease. Does have stable enlarged mediastinal and right hilar lymph node. This may be reactive and neoplastic in etiology. She has also stable small ill-defined hypodense lesion within the left hepatic lobe. This is too small to characterize. She had incidental finding of a right glenohumeral osteoarthritis, which showed joint effusion. The patient is already on Lasix 40 mg once a day. OBJECTIVE: GENERAL: On examining her, she looked well and was clearly in no apparent respiratory distress. No pallor, jaundice, cyanosis, or thyromegaly. No jugular venous distention, no lower limb edema. VITAL SIGNS: Her heart rate was 57, blood pressure is 119/71, temperature 97.9, respiratory rate was 18 and oxygen saturation was 98% on 2 liters of oxygen. HEAD, EYES, EARS, NOSE AND THROAT: Normocephalic, atraumatic. NECK: Supple. HEART: Normal first and second heart sounds. No gallop or murmur. CHEST: Clear to auscultation. No crepitation or rhonchi. ABDOMEN: Distended, soft. NEUROLOGIC: She is grossly intact, although she is mostly wheelchair bound. LABORATORY DATA: As of yesterday showed a serum sodium of 140, potassium 4.6, chloride 102, bicarbonate 28, anion gap of 10, BUN 19, creatinine 0.8. Estimated GFR was 71 mL per minute. Her glucose 106, calcium 9.1, total bilirubin, AST, ALT, alkaline phosphatase were normal. Total protein 6.9, albumin 3.1. Her white cell count was 6400, hemoglobin 11, hematocrit 34, MCV 84, platelet count 200,000. ASSESSMENT: Right upper lobe pneumonia with superimposed on the right upper lobe fibrosis, aspiration pneumonia is also a possibility. PLAN: My plan is to start her on Augmentin 875 mg twice a day for 10 days with food. Continue with all other medication. We will monitor her closely and see how she responds to treatment. MILLY DR: Lore TID: [id number]
--- NOTE | 2020-07-27 23:56 | PN ---
DATE: 07/27/2020 SUBJECTIVE: The patient was seen today, met with the staff, chart reviewed. The patient's behavior remains the same. Some improvement . Still depression and also feeling helpless and also angry at times as she is awaiting for placement. OBSERVATION: VITAL SIGNS: Temperature 97.9, blood pressure 119/71, pulse 57, respirations 18, O2 sat 98%. GENERAL: Slept about 6 hours last night. The patient's appetite is fair. CURRENT MEDICATIONS: The patient's medications reviewed, not having any side effects. ASSESSMENT: 1. Schizoaffective disorder, bipolar type, mixed with psychotic features. 2. Anxiety disorder, unspecified. PLAN: To continue with treatment. LENGTH OF STAY: 4 days. The patient is planned for discharge on 08/01/2020. CARMEN DR: Azul TID: [id number]
[2020-07-28] MEDS: LEVOTHYROXINE 75 MCG TABLET PO SCH (05:54)
[2020-07-28] MEDS: clonazePAM 0.5 MG TABLET PO PRN (05:54)
[2020-07-28 06:19] VITALS: BP 113/62
[2020-07-28] MEDS: NON FORMULARY ITEM (Olodaterol HCl (Striverdi Respimat) 4 GM) IH SCH (08:00)
[2020-07-28] MEDS: LIRAGLUTIDE 1.8 MG SQ SCH (08:00)
[2020-07-28] MEDS: MINERAL OIL/PETROLATUM TOPICAL CREAM 113GM JAR. TP SCH ×2 (08:10→20:57)
[2020-07-28] MEDS: DOCUSATE SODIUM 100 MG CAPSULE PO SCH ×2 (09:24→20:55)
[2020-07-28] MEDS: ARIPiprazole 15 MG TABLET PO SCH (09:24)
[2020-07-28] MEDS: SENNOSIDES 8.6 MG TABLET PO SCH ×2 (09:24→12:59)
[2020-07-28] MEDS: amLODIPine BESYLATE 5 MG TABLET PO SCH (09:24)
[2020-07-28] MEDS: ISOSORBIDE MONONITRATE ER 30 MG TAB.ER.24H PO SCH (09:24)
[2020-07-28] MEDS: QUEtiapine 100 MG TABLET. PO SCH ×2 (09:24→20:57)
[2020-07-28] MEDS: AMOXICILLIN/K CLAV 875/125MG TABLET. PO SCH ×2 (09:25→20:56)
[2020-07-28] MEDS: PANTOPRAZOLE 40 MG TABLET. PO SCH (09:25)
[2020-07-28] MEDS: LACTOBACILLUS RHAMNOSUS GG 1 CAPSULE. PO SCH ×2 (09:25→20:56)
[2020-07-28] MEDS: SALSALATE 500 MG PO SCH ×2 (09:25→20:55)
[2020-07-28] MEDS: POTASSIUM CHLORIDE 20 MEQ TABLET.ER. PO SCH ×2 (09:25→20:56)
[2020-07-28] MEDS: CALCIUM CARB/VIT D3 500/200 TABLET PO SCH ×2 (09:26→20:56)
[2020-07-28] MEDS: FLUoxetine HCL 20 MG CAPSULE PO SCH (09:26)
[2020-07-28] MEDS: FUROSEMIDE 40 MG TABLET PO SCH (09:26)
[2020-07-28] MEDS: ASPIRIN ENTERIC COATED 81 MG TABLET.DR. PO SCH (09:26)
[2020-07-28] MEDS: hydrOXYzine HCL 25 MG TABLET PO SCH ×3 (09:26→20:56)
[2020-07-28] MEDS: DICLOFENAC SODIUM 1% TOPICAL GEL 100GM TUBE. TP SCH ×4 (09:26→20:57)
[2020-07-28] MEDS: METOPROLOL TART IMMED RELEASE 25 MG TABLET. PO SCH ×2 (09:26→20:57)
[2020-07-28 16:22] VITALS: BP 143/74
[2020-07-28] MEDS: DIVALPROEX ER 500 MG TAB.ER.24H PO SCH (20:55)
[2020-07-28] MEDS: DIVALPROEX ER 250 MG TAB.ER.24H. PO SCH (20:55)
[2020-07-28] MEDS: ATORVASTATIN CALCIUM 20 MG TABLET PO SCH (20:56)
[2020-07-28] MEDS: rOPINIRole 0.5 MG TABLET. PO SCH (20:56)
[2020-07-28] MEDS: MELATONIN 3 MG TABLET PO SCH (20:56)
--- NOTE | 2020-07-29 02:15 | PN ---
DATE: 07/28/2020 SUBJECTIVE: The patient was seen today, met with the staff, chart reviewed, and also covering for Dr. Escalante. Staff reports no behavior problems. She tends to isolate herself in her room most of the time. Still has periods of depression. She is medication compliant. Sometimes, she becomes very tearful and also increased anxiety. OBSERVATION: VITAL SIGNS: Temperature 98.0, blood pressure 113/62, pulse 60, respirations 18, and O2 sat 98%. Slept about 7 hours last night. The patient's appetite improved. CURRENT MEDICATIONS: The patient's medications reviewed, not having any side effects. LABORATORY DATA: The patient's lab reviewed. ASSESSMENT: 1. Schizoaffective disorder, bipolar type, mixed with psychotic features. 2. Anxiety disorder, unspecified. PLAN: To continue with treatment. LENGTH OF STAY: Three to four days. MIKY/CHEPE/ISHAN DR: Azul TID: [id number]
[2020-07-29] MEDS: LEVOTHYROXINE 75 MCG TABLET PO SCH (05:37)
[2020-07-29 06:02] VITALS: BP 111/73
[2020-07-29] MEDS: NON FORMULARY ITEM (Olodaterol HCl (Striverdi Respimat) 4 GM) IH SCH (07:51)
[2020-07-29] MEDS: LIRAGLUTIDE 1.8 MG SQ SCH (07:52)
[2020-07-29] MEDS: ISOSORBIDE MONONITRATE ER 30 MG TAB.ER.24H PO SCH (08:00)
[2020-07-29] MEDS: ASPIRIN ENTERIC COATED 81 MG TABLET.DR. PO SCH (08:30)
[2020-07-29] MEDS: ARIPiprazole 15 MG TABLET PO SCH (08:30)
[2020-07-29] MEDS: QUEtiapine 100 MG TABLET. PO SCH ×2 (08:30→21:00)
[2020-07-29] MEDS: SALSALATE 500 MG PO SCH ×2 (08:30→21:00)
[2020-07-29] MEDS: hydrOXYzine HCL 25 MG TABLET PO SCH ×3 (08:30→20:58)
[2020-07-29] MEDS: CALCIUM CARB/VIT D3 500/200 TABLET PO SCH ×2 (08:30→20:59)
[2020-07-29] MEDS: METOPROLOL TART IMMED RELEASE 25 MG TABLET. PO SCH ×2 (08:31→21:00)
[2020-07-29] MEDS: SENNOSIDES 8.6 MG TABLET PO SCH ×2 (08:31→12:18)
[2020-07-29] MEDS: FLUoxetine HCL 20 MG CAPSULE PO SCH (08:32)
[2020-07-29] MEDS: LACTOBACILLUS RHAMNOSUS GG 1 CAPSULE. PO SCH ×2 (08:32→20:59)
[2020-07-29] MEDS: DOCUSATE SODIUM 100 MG CAPSULE PO SCH ×2 (08:32→20:58)
[2020-07-29] MEDS: FUROSEMIDE 40 MG TABLET PO SCH (08:32)
[2020-07-29] MEDS: AMOXICILLIN/K CLAV 875/125MG TABLET. PO SCH ×2 (08:32→20:58)
[2020-07-29] MEDS: POTASSIUM CHLORIDE 20 MEQ TABLET.ER. PO SCH ×2 (08:32→20:58)
[2020-07-29] MEDS: amLODIPine BESYLATE 5 MG TABLET PO SCH (08:32)
[2020-07-29] MEDS: DICLOFENAC SODIUM 1% TOPICAL GEL 100GM TUBE. TP SCH ×4 (08:33→21:02)
[2020-07-29] MEDS: PANTOPRAZOLE 40 MG TABLET. PO SCH (08:33)
[2020-07-29] MEDS: MINERAL OIL/PETROLATUM TOPICAL CREAM 113GM JAR. TP SCH ×2 (08:33→21:00)
[2020-07-29 15:29] VITALS: BP 112/57
[2020-07-29] MEDS: rOPINIRole 0.5 MG TABLET. PO SCH (20:58)
[2020-07-29] MEDS: DIVALPROEX ER 500 MG TAB.ER.24H PO SCH (20:58)
[2020-07-29] MEDS: DIVALPROEX ER 250 MG TAB.ER.24H. PO SCH (20:58)
[2020-07-29] MEDS: MELATONIN 3 MG TABLET PO SCH (20:59)
[2020-07-29] MEDS: ATORVASTATIN CALCIUM 20 MG TABLET PO SCH (20:59)
[2020-07-29] MEDS: clonazePAM 0.5 MG TABLET PO PRN (23:45)
--- NOTE | 2020-07-30 01:09 | PN ---
DATE: 07/29/2020 SUBJECTIVE: The patient was seen today, met with the staff, chart reviewed. Staff reports she has been cooperative, med compliant, tends to be anxious, and has periods of depression. OBSERVATION: VITAL SIGNS: Temperature 97.6, blood pressure 111/73, pulse 57, respirations 22, O2 sat 94%. GENERAL: Slept about 6 hours last night. The patient's appetite improved. MEDICATIONS: Reviewed, not having any side effects. LABORATORY DATA: The patient's lab reviewed. ASSESSMENT: 1. Schizoaffective disorder, bipolar type, mixed with psychotic features. 2. Anxiety disorder, unspecified. PLAN: To continue with treatment. LENGTH OF STAY: Three to four days. MARLENY DR: Azul TID: [id number]
[2020-07-30 05:40] VITALS: BP 121/70
[2020-07-30] MEDS: LEVOTHYROXINE 75 MCG TABLET PO SCH (05:52)
[2020-07-30] MEDS: NON FORMULARY ITEM (Olodaterol HCl (Striverdi Respimat) 4 GM) IH SCH (08:00)
[2020-07-30] MEDS: LIRAGLUTIDE 1.8 MG SQ SCH (08:00)
[2020-07-30] MEDS: CHOLECALCIFEROL (VITAMIN D3) 50,000 UNIT CAPSULE PO SCH (08:23)
[2020-07-30] MEDS: DOCUSATE SODIUM 100 MG CAPSULE PO SCH ×2 (08:23→20:43)
[2020-07-30] MEDS: SENNOSIDES 8.6 MG TABLET PO SCH ×2 (08:23→13:20)
[2020-07-30] MEDS: hydrOXYzine HCL 25 MG TABLET PO SCH ×3 (08:24→20:43)
[2020-07-30] MEDS: ARIPiprazole 15 MG TABLET PO SCH (08:24)
[2020-07-30] MEDS: SALSALATE 500 MG PO SCH ×2 (08:24→20:43)
[2020-07-30] MEDS: ISOSORBIDE MONONITRATE ER 30 MG TAB.ER.24H PO SCH (08:24)
[2020-07-30] MEDS: PANTOPRAZOLE 40 MG TABLET. PO SCH (08:24)
[2020-07-30] MEDS: FLUoxetine HCL 20 MG CAPSULE PO SCH (08:24)
[2020-07-30] MEDS: ASPIRIN ENTERIC COATED 81 MG TABLET.DR. PO SCH (08:24)
[2020-07-30] MEDS: CALCIUM CARB/VIT D3 500/200 TABLET PO SCH ×2 (08:25→20:42)
[2020-07-30] MEDS: POTASSIUM CHLORIDE 20 MEQ TABLET.ER. PO SCH ×2 (08:25→20:42)
[2020-07-30] MEDS: METOPROLOL TART IMMED RELEASE 25 MG TABLET. PO SCH ×2 (08:25→20:43)
[2020-07-30] MEDS: amLODIPine BESYLATE 5 MG TABLET PO SCH (08:26)
[2020-07-30] MEDS: QUEtiapine 100 MG TABLET. PO SCH ×2 (08:26→20:41)
[2020-07-30] MEDS: AMOXICILLIN/K CLAV 875/125MG TABLET. PO SCH ×2 (08:26→20:42)
[2020-07-30] MEDS: LACTOBACILLUS RHAMNOSUS GG 1 CAPSULE. PO SCH ×2 (08:26→20:42)
[2020-07-30] MEDS: FUROSEMIDE 40 MG TABLET PO SCH (08:27)
[2020-07-30] MEDS: DICLOFENAC SODIUM 1% TOPICAL GEL 100GM TUBE. TP SCH ×4 (08:33→20:43)
[2020-07-30] MEDS: MINERAL OIL/PETROLATUM TOPICAL CREAM 113GM JAR. TP SCH ×2 (09:00→20:43)
[2020-07-30 15:44] VITALS: BP 107/69
[2020-07-30] MEDS: MELATONIN 3 MG TABLET PO SCH (20:41)
[2020-07-30] MEDS: DIVALPROEX ER 250 MG TAB.ER.24H. PO SCH (20:42)
[2020-07-30] MEDS: ATORVASTATIN CALCIUM 20 MG TABLET PO SCH (20:42)
[2020-07-30] MEDS: DIVALPROEX ER 500 MG TAB.ER.24H PO SCH (20:42)
[2020-07-30] MEDS: rOPINIRole 0.5 MG TABLET. PO SCH (20:42)
--- NOTE | 2020-07-30 22:02 | PDOC ---
Exam Note: [place] Note: Please also refer to the separate dictated note~for this date of service dictated separately.~Patient seen individually. Discussed the patient with Nursing staff reviewed the chart.~Reviewed interim history and current functioning. Reviewed vital signs,~Labs/ Radiology~and current medications noted below. Continue current treatment with the changes noted in the dictated addendum note Assessment: Vital Signs/I&O: Vital Signs Date Time Temp Pulse Resp B/P (MAP) Pulse Ox O2 Delivery O2 Flow Rate FiO2 07/30/20 20:43 79 107/69 07/30/20 15:44 98.2 18 92 07/29/20 06:02 Nasal Cannula 2.0 I & O 0 07/29/20 07/29/20 07/30/20 15:00 23:00 07:00 Intake Total 740 ml 120 ml Balance 740 ml 120 ml Current Medications: Meds: Current Medications Medications (Trade) Dose Ordered Sig/Indra Route PRN Reason Start Time Stop Time Status Last Admin Dose Admin Acetaminophen (Tylenol) 650 mg PRN Q6HRS PRN PO MILD PAIN / TEMP > 100.3'F 06/21/20 16:15 Multi-Ingredient Ointment (Analgesic [place]) 1 joesph PRN QID PRN TP MUSCLE PAIN 06/21/20 16:15 Al Hydroxide/Mg Hydroxide (Mylanta Plus Xs) 15 ml PRN AFTMEALHC PRN PO DYSPEPSIA 06/21/20 16:15 Magnesium Hydroxide (Milk Of Magnesia) 2,400 mg PRN QHS PRN PO CONSTIPATION 06/21/20 16:15 Acetaminophen (Tylenol) 500 mg PRN Q6HRS PRN PO pain or fever 06/21/20 16:30 UNV Albuterol Sulfate (Ventolin) 2.5 mg PRN Q4HRS PRN IH FOR ASTHMA 06/21/20 16:30 UNV Amlodipine Besylate (Norvasc) 5 mg DAILY PO 06/22/20 09:00 07/30/20 08:26 Aripiprazole (Abilify) 15 mg DAILY PO 06/22/20 09:00 07/30/20 08:24 Aspirin (Aspirin Enteric Coated) 81 mg DAILY PO 06/22/20 09:00 07/30/20 08:24 Atorvastatin Calcium (Lipitor) 20 mg QHS PO 06/21/20 21:00 07/30/20 20:42 Calcium/Vitamin D (Oscal D 500mg/ 200uts) 1 tab BID PO 06/21/20 21:00 07/30/20 20:42 Vitamin D (Vitamin D3) 50,000 unit WEEKLY PO 06/25/20 09:00 07/30/20 08:23 Clonazepam (KlonoPIN) 0.5 mg PRN BID PRN PO ANXIETY / AGITATION 06/21/20 16:30 07/29/20 23:45 Cyanocobalamin (Vitamin B-12) 1,000 mcg QMONTH IM 07/17/20 09:00 07/17/20 08:38 Diclofenac Sodium (Voltaren) 2 joesph QID TP 06/21/20 17:00 07/30/20 20:43 Docusate Sodium (Colace) 100 mg BID PO 06/21/20 21:00 07/30/20 20:43 Furosemide (Lasix) 20 mg DAILY16 PO 06/22/20 16:00 06/27/20 16:15 DC 06/26/20 15:52 Isosorbide Mononitrate (Imdur) 30 mg DAILY08 PO 06/22/20 08:00 07/30/20 08:24 Ketoconazole (Nizoral 2% Shampoo) 1 joesph PRN DAILY PRN TP DANDRUFF 06/21/20 16:30 Levothyroxine Sodium (Synthroid) 75 mcg DAILY06 PO 06/22/20 06:00 07/30/20 05:52 Metoprolol Tartrate (Lopressor) 12.5 mg BID PO 06/21/20 21:00 07/30/20 20:43 Pantoprazole Sodium (Protonix) 40 mg DAILY08 PO 06/22/20 08:00 07/30/20 08:24 Ropinirole HCl (Requip) 0.5 mg HS PO 06/21/20 21:00 07/30/20 20:42 Salsalate (Salsalate) 1,000 mg 2100 PO 06/21/20 21:00 07/30/20 20:43 Salsalate (Salsalate) 1,500 mg 0800 PO 06/22/20 08:00 07/30/20 08:24 Sennosides (Senna) 8.6 mg BID76 PO 06/21/20 18:00 06/23/20 05:00 DC 06/22/20 16:04 Tramadol HCl (Ultram) 50 mg PRN Q6HRS PRN PO MOD-SEV PAIN 06/21/20 16:30 07/22/20 09:03 Triamcinolone Acetonide (Kenalog) 1 joesph PRN Q12HR PRN TP ITCHING 06/21/20 16:30 Vitamin A/Vitamin D (Vitamin A & D Ointment) 1 joesph PRN Q1HR PRN TP DRY SKIN / SCALING 06/21/20 16:30 Multi-Ingred Cream/Lotion/Oil/ Oint (Hydrocerin) 1 joesph BID TP 06/21/20 21:00 07/30/20 20:43 Fluoxetine HCl (PROzac) 80 mg DAILY08 PO 06/22/20 08:00 07/08/20 18:05 DC 07/08/20 04:26 Non-Formulary Medication (Liraglutide (Saxenda)) 1.8 mg 0800 SQ 06/22/20 08:00 UNV Melatonin (Melatonin) 3 mg HS PO 06/21/20 21:00 07/30/20 20:41 Non-Formulary Medication (Olodaterol HCl (Striverdi Respimat)) 4 gm DAILY08 IH 06/22/20 08:00 UNV Potassium Chloride (Klor-Con) 10 meq TID PO 06/21/20 21:00 06/27/20 16:15 DC 06/27/20 13:12 Quetiapine Fumarate (SEROquel) 300 mg DAILY08 PO 06/22/20 08:00 07/30/20 08:26 Quetiapine Fumarate (SEROquel) 600 mg HS PO 06/21/20 21:00 07/30/20 20:41 Hydroxyzine HCl (Atarax) 25 mg TID PO 06/21/20 21:00 07/30/20 20:43 Albuterol Sulfate (Ventolin Hfa Inhaler) 2 puff PRN Q4HRS PRN INH SHORTNESS OF BREATH 06/21/20 17:15 Divalproex Sodium (Depakote Er) 500 mg QHS PO 06/21/20 21:00 06/24/20 17:35 DC 06/23/20 19:43 Divalproex Sodium (Depakote Er) 500 mg QHS PO 06/22/20 21:00 06/22/20 12:14 DC Sennosides (Senna) 8.6 mg BIDACBL PO 06/23/20 07:30 07/30/20 13:20 Divalproex Sodium (Depakote Er) 750 mg QHS PO 06/24/20 21:00 06/25/20 19:31 DC 06/24/20 21:05 Divalproex Sodium (Depakote Er) 500 mg QHS PO 06/25/20 21:00 07/30/20 20:42 Divalproex Sodium (Depakote Er) 250 mg QHS PO 06/25/20 21:00 07/30/20 20:42 Furosemide (Lasix) 60 mg 1X ONCE PO 06/26/20 21:15 06/26/20 22:10 DC 06/27/20 05:51 Furosemide (Lasix) 40 mg DAILY PO 06/27/20 16:15 07/30/20 08:27 Potassium Chloride (Klor-Con) 20 meq BID PO 06/27/20 21:00 07/30/20 20:42 Fluoxetine HCl (PROzac) 60 mg DAILY08 PO 07/09/20 08:00 07/10/20 20:09 DC 07/10/20 09:09 Bupropion HCl (Wellbutrin Xl) 150 mg DAILY PO 07/09/20 09:00 07/10/20 20:09 DC 07/10/20 09:10 Olanzapine (ZyPREXA ZYDIS) 2.5 mg PRN Q2HR PRN PO PSYCHOSIS 07/10/20 20:00 07/14/20 22:10 Fluoxetine HCl (PROzac) 80 mg DAILY PO 07/11/20 08:00 07/30/20 08:24 Iohexol (Omnipaque 350 Mg/ml) 100 ml 1X ONCE IV 07/27/20 08:30 07/27/20 08:31 DC 07/27/20 08:43 Amoxicillin/ Clavulanate Potassium (Augmentin 875/ 125mg) 1 tab BID PO 07/27/20 21:00 08/05/20 22:00 07/30/20 20:42 Lactobacillus Rhamnosus (Culturelle) 1 cap BID PO 07/27/20 21:00 07/30/20 20:42 I have reviewed the current psychotropics carefully including drug interactions. Risk benefit ratio favors no change other than as noted in my dictated progress note. Diagnosis: Problems: (1) Schizoaffective disorder, bipolar type (2) Impulse control disorder, unspecified (3) Anxiety disorder, unspecified (4) Bipolar disorder, current episode depressed, severe, with psychotic features MICHAEL CLARK MD July 30, 2020 22:02
[2020-07-31] MEDS: clonazePAM 0.5 MG TABLET PO PRN ×2 (05:25→20:45)
[2020-07-31] MEDS: LEVOTHYROXINE 75 MCG TABLET PO SCH (05:25)
[2020-07-31 05:45] VITALS: BP 105/74
[2020-07-31] MEDS: NON FORMULARY ITEM (Olodaterol HCl (Striverdi Respimat) 4 GM) IH SCH (08:00)
[2020-07-31] MEDS: ISOSORBIDE MONONITRATE ER 30 MG TAB.ER.24H PO SCH (08:00)
[2020-07-31] MEDS: LIRAGLUTIDE 1.8 MG SQ SCH (08:00)
[2020-07-31] MEDS: FUROSEMIDE 40 MG TABLET PO SCH (08:41)
[2020-07-31] MEDS: SALSALATE 500 MG PO SCH ×2 (08:42→20:38)
[2020-07-31] MEDS: FLUoxetine HCL 20 MG CAPSULE PO SCH (08:43)
[2020-07-31] MEDS: DOCUSATE SODIUM 100 MG CAPSULE PO SCH ×2 (08:43→20:36)
[2020-07-31] MEDS: ASPIRIN ENTERIC COATED 81 MG TABLET.DR. PO SCH (08:43)
[2020-07-31] MEDS: AMOXICILLIN/K CLAV 875/125MG TABLET. PO SCH ×2 (08:43→20:36)
[2020-07-31] MEDS: POTASSIUM CHLORIDE 20 MEQ TABLET.ER. PO SCH ×2 (08:43→20:37)
[2020-07-31] MEDS: QUEtiapine 100 MG TABLET. PO SCH ×2 (08:43→20:38)
[2020-07-31] MEDS: hydrOXYzine HCL 25 MG TABLET PO SCH ×3 (08:44→20:37)
[2020-07-31] MEDS: LACTOBACILLUS RHAMNOSUS GG 1 CAPSULE. PO SCH ×2 (08:44→20:36)
[2020-07-31] MEDS: CALCIUM CARB/VIT D3 500/200 TABLET PO SCH ×2 (08:44→20:37)
[2020-07-31] MEDS: SENNOSIDES 8.6 MG TABLET PO SCH ×2 (08:44→12:17)
[2020-07-31] MEDS: ARIPiprazole 15 MG TABLET PO SCH (08:44)
[2020-07-31] MEDS: PANTOPRAZOLE 40 MG TABLET. PO SCH (08:44)
[2020-07-31] MEDS: METOPROLOL TART IMMED RELEASE 25 MG TABLET. PO SCH ×2 (08:56→20:38)
[2020-07-31] MEDS: amLODIPine BESYLATE 5 MG TABLET PO SCH (08:56)
[2020-07-31] MEDS: MINERAL OIL/PETROLATUM TOPICAL CREAM 113GM JAR. TP SCH ×2 (08:57→20:39)
[2020-07-31] MEDS: DICLOFENAC SODIUM 1% TOPICAL GEL 100GM TUBE. TP SCH ×4 (08:57→20:39)
[2020-07-31 15:44] VITALS: BP 127/75
[2020-07-31] MEDS: rOPINIRole 0.5 MG TABLET. PO SCH (20:36)
[2020-07-31] MEDS: DIVALPROEX ER 250 MG TAB.ER.24H. PO SCH (20:37)
[2020-07-31] MEDS: MELATONIN 3 MG TABLET PO SCH (20:37)
[2020-07-31] MEDS: DIVALPROEX ER 500 MG TAB.ER.24H PO SCH (20:37)
[2020-07-31] MEDS: ATORVASTATIN CALCIUM 20 MG TABLET PO SCH (20:38)
--- NOTE | 2020-07-31 21:46 | PDOC ---
Exam Note: [place] Note: Please also refer to the separate dictated note~for this date of service dictated separately.~Patient seen individually. Discussed the patient with Nursing staff reviewed the chart.~Reviewed interim history and current functioning. Reviewed vital signs,~Labs/ Radiology~and current medications noted below. Continue current treatment with the changes noted in the dictated addendum note Assessment: Vital Signs/I&O: Vital Signs Date Time Temp Pulse Resp B/P (MAP) Pulse Ox O2 Delivery O2 Flow Rate FiO2 07/31/20 20:38 60 127/75 07/31/20 15:44 97.5 18 94 07/31/20 05:45 2.0 07/29/20 06:02 Nasal Cannula I & O 07/30/20 07/30/20 07/31/20 15:00 23:00 07:00 Intake Total 600 ml 360 ml Balance 600 ml 360 ml Current Medications: Meds: Current Medications Medications (Trade) Dose Ordered Sig/Indra Route PRN Reason Start Time Stop Time Status Last Admin Dose Admin Acetaminophen (Tylenol) 650 mg PRN Q6HRS PRN PO MILD PAIN / TEMP > 100.3'F 06/21/20 16:15 Multi-Ingredient Ointment (Analgesic [place]) 1 joesph PRN QID PRN TP MUSCLE PAIN 06/21/20 16:15 Al Hydroxide/Mg Hydroxide (Mylanta Plus Xs) 15 ml PRN AFTMEALHC PRN PO DYSPEPSIA 06/21/20 16:15 Magnesium Hydroxide (Milk Of Magnesia) 2,400 mg PRN QHS PRN PO CONSTIPATION 06/21/20 16:15 Acetaminophen (Tylenol) 500 mg PRN Q6HRS PRN PO pain or fever 06/21/20 16:30 UNV Albuterol Sulfate (Ventolin) 2.5 mg PRN Q4HRS PRN IH FOR ASTHMA 06/21/20 16:30 UNV Amlodipine Besylate (Norvasc) 5 mg DAILY PO 06/22/20 09:00 07/30/20 08:26 Aripiprazole (Abilify) 15 mg DAILY PO 06/22/20 09:00 07/31/20 08:44 Aspirin (Aspirin Enteric Coated) 81 mg DAILY PO 06/22/20 09:00 07/31/20 08:43 Atorvastatin Calcium (Lipitor) 20 mg QHS PO 06/21/20 21:00 07/31/20 20:38 Calcium/Vitamin D (Oscal D 500mg/ 200uts) 1 tab BID PO 06/21/20 21:00 07/31/20 20:37 Vitamin D (Vitamin D3) 50,000 unit WEEKLY PO 06/25/20 09:00 07/30/20 08:23 Clonazepam (KlonoPIN) 0.5 mg PRN BID PRN PO ANXIETY / AGITATION 06/21/20 16:30 07/31/20 20:45 Cyanocobalamin (Vitamin B-12) 1,000 mcg QMONTH IM 07/17/20 09:00 07/17/20 08:38 Diclofenac Sodium (Voltaren) 2 joesph QID TP 06/21/20 17:00 07/31/20 20:39 Docusate Sodium (Colace) 100 mg BID PO 06/21/20 21:00 07/31/20 20:36 Furosemide (Lasix) 20 mg DAILY16 PO 06/22/20 16:00 06/27/20 16:15 DC 06/26/20 15:52 Isosorbide Mononitrate (Imdur) 30 mg DAILY08 PO 06/22/20 08:00 07/30/20 08:24 Ketoconazole (Nizoral 2% Shampoo) 1 joesph PRN DAILY PRN TP DANDRUFF 06/21/20 16:30 Levothyroxine Sodium (Synthroid) 75 mcg DAILY06 PO 06/22/20 06:00 07/31/20 05:25 Metoprolol Tartrate (Lopressor) 12.5 mg BID PO 06/21/20 21:00 07/31/20 20:38 Pantoprazole Sodium (Protonix) 40 mg DAILY08 PO 06/22/20 08:00 07/31/20 08:44 Ropinirole HCl (Requip) 0.5 mg HS PO 06/21/20 21:00 07/31/20 20:36 Salsalate (Salsalate) 1,000 mg 2100 PO 06/21/20 21:00 07/31/20 20:38 Salsalate (Salsalate) 1,500 mg 0800 PO 06/22/20 08:00 07/31/20 08:42 Sennosides (Senna) 8.6 mg BID76 PO 06/21/20 18:00 06/23/20 05:00 DC 06/22/20 16:04 Tramadol HCl (Ultram) 50 mg PRN Q6HRS PRN PO MOD-SEV PAIN 06/21/20 16:30 07/22/20 09:03 Triamcinolone Acetonide (Kenalog) 1 joesph PRN Q12HR PRN TP ITCHING 06/21/20 16:30 Vitamin A/Vitamin D (Vitamin A & D Ointment) 1 joesph PRN Q1HR PRN TP DRY SKIN / SCALING 06/21/20 16:30 Multi-Ingred Cream/Lotion/Oil/ Oint (Hydrocerin) 1 joesph BID TP 06/21/20 21:00 07/30/20 20:43 Fluoxetine HCl (PROzac) 80 mg DAILY08 PO 06/22/20 08:00 07/08/20 18:05 DC 07/08/20 04:26 Non-Formulary Medication (Liraglutide (Saxenda)) 1.8 mg 0800 SQ 06/22/20 08:00 UNV Melatonin (Melatonin) 3 mg HS PO 06/21/20 21:00 07/31/20 20:37 Non-Formulary Medication (Olodaterol HCl (Striverdi Respimat)) 4 gm DAILY08 IH 06/22/20 08:00 UNV Potassium Chloride (Klor-Con) 10 meq TID PO 06/21/20 21:00 06/27/20 16:15 DC 06/27/20 13:12 Quetiapine Fumarate (SEROquel) 300 mg DAILY08 PO 06/22/20 08:00 07/31/20 08:43 Quetiapine Fumarate (SEROquel) 600 mg HS PO 06/21/20 21:00 07/31/20 20:38 Hydroxyzine HCl (Atarax) 25 mg TID PO 06/21/20 21:00 07/31/20 20:37 Albuterol Sulfate (Ventolin Hfa Inhaler) 2 puff PRN Q4HRS PRN INH SHORTNESS OF BREATH 06/21/20 17:15 Divalproex Sodium (Depakote Er) 500 mg QHS PO 06/21/20 21:00 06/24/20 17:35 DC 06/23/20 19:43 Divalproex Sodium (Depakote Er) 500 mg QHS PO 06/22/20 21:00 06/22/20 12:14 DC Sennosides (Senna) 8.6 mg BIDACBL PO 06/23/20 07:30 07/31/20 12:17 Divalproex Sodium (Depakote Er) 750 mg QHS PO 06/24/20 21:00 06/25/20 19:31 DC 06/24/20 21:05 Divalproex Sodium (Depakote Er) 500 mg QHS PO 06/25/20 21:00 07/31/20 20:37 Divalproex Sodium (Depakote Er) 250 mg QHS PO 06/25/20 21:00 07/31/20 20:37 Furosemide (Lasix) 60 mg 1X ONCE PO 06/26/20 21:15 06/26/20 22:10 DC 06/27/20 05:51 Furosemide (Lasix) 40 mg DAILY PO 06/27/20 16:15 07/31/20 08:41 Potassium Chloride (Klor-Con) 20 meq BID PO 06/27/20 21:00 07/31/20 20:37 Fluoxetine HCl (PROzac) 60 mg DAILY08 PO 07/09/20 08:00 07/10/20 20:09 DC 07/10/20 09:09 Bupropion HCl (Wellbutrin Xl) 150 mg DAILY PO 07/09/20 09:00 07/10/20 20:09 DC 07/10/20 09:10 Olanzapine (ZyPREXA ZYDIS) 2.5 mg PRN Q2HR PRN PO PSYCHOSIS 07/10/20 20:00 07/14/20 22:10 Fluoxetine HCl (PROzac) 80 mg DAILY PO 07/11/20 08:00 07/31/20 08:43 Iohexol (Omnipaque 350 Mg/ml) 100 ml 1X ONCE IV 07/27/20 08:30 07/27/20 08:31 DC 07/27/20 08:43 Amoxicillin/ Clavulanate Potassium (Augmentin 875/ 125mg) 1 tab BID PO 07/27/20 21:00 08/05/20 22:00 07/31/20 20:36 Lactobacillus Rhamnosus (Culturelle) 1 cap BID PO 07/27/20 21:00 07/31/20 20:36 I have reviewed the current psychotropics carefully including drug interactions. Risk benefit ratio favors no change other than as noted in my dictated progress note. Diagnosis: Problems: (1) Schizoaffective disorder, bipolar type (2) Impulse control disorder, unspecified (3) Anxiety disorder, unspecified (4) Bipolar disorder, current episode depressed, severe, with psychotic features MICHAEL CLARK MD July 31, 2020 21:46
[2020-08-01 05:32] VITALS: BP 107/74
[2020-08-01] MEDS: LEVOTHYROXINE 75 MCG TABLET PO SCH (05:38)
[2020-08-01 06:59] LABS: BASO % 1 % (0-3); EOS # 0.3 x10^3/uL (0.0-0.7); EOS % 6 % (0-3); HEMATOCRIT 33.2 % (36.0-47.0); HEMOGLOBIN 10.7 g/dL (12.0-15.5); LYMPH # 0.8 x10^3/uL (1.0-4.8); LYMPH % 18 % (24-48); MEAN CORPUSCULAR HEMOGLOBIN 27 pg (25-35); MEAN CORPUSCULAR HGB CONC 32 g/dL (31-37); MEAN CORPUSCULAR VOLUME 83 fL (79-100); MONO # 0.8 x10^3/uL (0.0-1.1); MONO % 18 % (0-9); NEUT # 2.7 x10^3uL (1.8-7.7); NEUT % 58 % (31-73); PLATELET COUNT 178 x10^3/uL (140-400); RED CELL DISTRIBUTION WIDTH 17.1 % (11.5-14.5); WHITE BLOOD COUNT 4.7 x10^3/uL (4.0-11.0)
[2020-08-01 07:26] LABS: ALBUMIN 2.8 g/dL (3.4-5.0); ALBUMIN/GLOBULIN RATIO 0.7 (1.0-1.7); CALCIUM 8.7 mg/dL (8.5-10.1); GFR 55.3; POTASSIUM 4.8 mmol/L (3.5-5.1); TOTAL BILIRUBIN 0.2 mg/dL (0.2-1.0); TOTAL PROTEIN 6.6 g/dL (6.4-8.2)
--- NOTE | 2020-08-01 07:48 | PDOC ---
Exam Note: [place] Note: This note is a late entry for 07/13/2020 covers elements not covered in my initial note. Subjective: This note was initially completed on 07/13/2020 but cannot be retrieved in the electronic medical system and is being re-dictated today 07/31/2020. The patient was seen individually in the evening of 07/13/2020 with Vernon WOMACK, discussed and reviewed the chart. The patient has been tearful, anxious but more redirectable. She is more willing to discuss placement options. Review of Systems: Ambulation impaired in wheelchair. No CV, , eye, ENT system symptoms on review. Mental Status Exam: The patient is oriented to herself and situation. Speech coherent, has some latency. Abstraction fair. Computation impaired. Language function intact. Mood and affect depressed, labile. Laboratory Data: Reviewed. Impression: Schizoaffective disorder, bipolar type, mixed with psychotic features in partial remission. Anxiety disorder unspecified. Impulse control disorder unspecified. Plan: No change from initial note. Dr. Cox will cover for me starting from 07/14/2020 at 8 a.m. till 07/29/2020 at 8 p.m. Assessment: Vital Signs/I&O: Vital Signs Date Time Temp Pulse Resp B/P (MAP) Pulse Ox O2 Delivery O2 Flow Rate FiO2 08/01/20 05:32 97.7 85 20 107/74 (85) 91 Room Air 07/31/20 05:45 2.0 I & O 07/31/20 07/31/20 08/01/20 15:00 23:00 07:00 Intake Total 660 ml 480 ml Balance 660 ml 480 ml Labs: Laboratory Tests Test 08/01/20 06:44 White Blood Count 4.7 x10^3/uL (4.0-11.0) Red Blood Count 4.00 x10^6/uL (3.50-5.40) Hemoglobin 10.7 g/dL (12.0-15.5) L Hematocrit 33.2 % (36.0-47.0) L Mean Corpuscular Volume 83 fL (79-100) Mean Corpuscular Hemoglobin 27 pg (25-35) Mean Corpuscular Hemoglobin Concent 32 g/dL (31-37) Red Cell Distribution Width 17.1 % (11.5-14.5) H Platelet Count 178 x10^3/uL (140-400) Neutrophils (%) (Auto) 58 % (31-73) Lymphocytes (%) (Auto) 18 % (24-48) L Monocytes (%) (Auto) 18 % (0-9) H Eosinophils (%) (Auto) 6 % (0-3) H Basophils (%) (Auto) 1 % (0-3) Neutrophils # (Auto) 2.7 x10^3uL (1.8-7.7) Lymphocytes # (Auto) 0.8 x10^3/uL (1.0-4.8) L Monocytes # (Auto) 0.8 x10^3/uL (0.0-1.1) Eosinophils # (Auto) 0.3 x10^3/uL (0.0-0.7) Basophils # (Auto) 0.0 x10^3/uL (0.0-0.2) Current Medications: Meds: Laboratory Tests Test 08/01/20 06:44 White Blood Count 4.7 x10^3/uL Red Blood Count 4.00 x10^6/uL Hemoglobin 10.7 g/dL Hematocrit 33.2 % Mean Corpuscular Volume 83 fL Mean Corpuscular Hemoglobin 27 pg Mean Corpuscular Hemoglobin Concent 32 g/dL Red Cell Distribution Width 17.1 % Platelet Count 178 x10^3/uL Neutrophils (%) (Auto) 58 % Lymphocytes (%) (Auto) 18 % Monocytes (%) (Auto) 18 % Eosinophils (%) (Auto) 6 % Basophils (%) (Auto) 1 % Neutrophils # (Auto) 2.7 x10^3uL Lymphocytes # (Auto) 0.8 x10^3/uL Monocytes # (Auto) 0.8 x10^3/uL Eosinophils # (Auto) 0.3 x10^3/uL Basophils # (Auto) 0.0 x10^3/uL Current Medications Medications (Trade) Dose Ordered Sig/Indra Route PRN Reason Start Time Stop Time Status Last Admin Dose Admin Acetaminophen (Tylenol) 650 mg PRN Q6HRS PRN PO MILD PAIN / TEMP > 100.3'F 06/21/20 16:15 Multi-Ingredient Ointment (Analgesic [place]) 1 joesph PRN QID PRN TP MUSCLE PAIN 06/21/20 16:15 Al Hydroxide/Mg Hydroxide (Mylanta Plus Xs) 15 ml PRN AFTMEALHC PRN PO DYSPEPSIA 06/21/20 16:15 Magnesium Hydroxide (Milk Of Magnesia) 2,400 mg PRN QHS PRN PO CONSTIPATION 06/21/20 16:15 Acetaminophen (Tylenol) 500 mg PRN Q6HRS PRN PO pain or fever 06/21/20 16:30 UNV Albuterol Sulfate (Ventolin) 2.5 mg PRN Q4HRS PRN IH FOR ASTHMA 06/21/20 16:30 UNV Amlodipine Besylate (Norvasc) 5 mg DAILY PO 06/22/20 09:00 07/30/20 08:26 Aripiprazole (Abilify) 15 mg DAILY PO 06/22/20 09:00 07/31/20 08:44 Aspirin (Aspirin Enteric Coated) 81 mg DAILY PO 06/22/20 09:00 07/31/20 08:43 Atorvastatin Calcium (Lipitor) 20 mg QHS PO 06/21/20 21:00 07/31/20 20:38 Calcium/Vitamin D (Oscal D 500mg/ 200uts) 1 tab BID PO 06/21/20 21:00 07/31/20 20:37 Vitamin D (Vitamin D3) 50,000 unit WEEKLY PO 06/25/20 09:00 07/30/20 08:23 Clonazepam (KlonoPIN) 0.5 mg PRN BID PRN PO ANXIETY / AGITATION 06/21/20 16:30 07/31/20 20:45 Cyanocobalamin (Vitamin B-12) 1,000 mcg QMONTH IM 07/17/20 09:00 07/17/20 08:38 Diclofenac Sodium (Voltaren) 2 joesph QID TP 06/21/20 17:00 07/31/20 20:39 Docusate Sodium (Colace) 100 mg BID PO 06/21/20 21:00 07/31/20 20:36 Furosemide (Lasix) 20 mg DAILY16 PO 06/22/20 16:00 06/27/20 16:15 DC 06/26/20 15:52 Isosorbide Mononitrate (Imdur) 30 mg DAILY08 PO 06/22/20 08:00 07/30/20 08:24 Ketoconazole (Nizoral 2% Shampoo) 1 joesph PRN DAILY PRN TP DANDRUFF 06/21/20 16:30 Levothyroxine Sodium (Synthroid) 75 mcg DAILY06 PO 06/22/20 06:00 08/01/20 05:38 Metoprolol Tartrate (Lopressor) 12.5 mg BID PO 06/21/20 21:00 07/31/20 20:38 Pantoprazole Sodium (Protonix) 40 mg DAILY08 PO 06/22/20 08:00 07/31/20 08:44 Ropinirole HCl (Requip) 0.5 mg HS PO 06/21/20 21:00 07/31/20 20:36 Salsalate (Salsalate) 1,000 mg 2100 PO 06/21/20 21:00 07/31/20 20:38 Salsalate (Salsalate) 1,500 mg 0800 PO 06/22/20 08:00 07/31/20 08:42 Sennosides (Senna) 8.6 mg BID76 PO 06/21/20 18:00 06/23/20 05:00 DC 06/22/20 16:04 Tramadol HCl (Ultram) 50 mg PRN Q6HRS PRN PO MOD-SEV PAIN 06/21/20 16:30 07/22/20 09:03 Triamcinolone Acetonide (Kenalog) 1 joesph PRN Q12HR PRN TP ITCHING 06/21/20 16:30 Vitamin A/Vitamin D (Vitamin A & D Ointment) 1 joesph PRN Q1HR PRN TP DRY SKIN / SCALING 06/21/20 16:30 Multi-Ingred Cream/Lotion/Oil/ Oint (Hydrocerin) 1 joesph BID TP 06/21/20 21:00 07/30/20 20:43 Fluoxetine HCl (PROzac) 80 mg DAILY08 PO 06/22/20 08:00 07/08/20 18:05 DC 07/08/20 04:26 Non-Formulary Medication (Liraglutide (Saxenda)) 1.8 mg 0800 SQ 06/22/20 08:00 UNV Melatonin (Melatonin) 3 mg HS PO 06/21/20 21:00 07/31/20 20:37 Non-Formulary Medication (Olodaterol HCl (Striverdi Respimat)) 4 gm DAILY08 IH 06/22/20 08:00 UNV Potassium Chloride (Klor-Con) 10 meq TID PO 06/21/20 21:00 06/27/20 16:15 DC 06/27/20 13:12 Quetiapine Fumarate (SEROquel) 300 mg DAILY08 PO 06/22/20 08:00 07/31/20 08:43 Quetiapine Fumarate (SEROquel) 600 mg HS PO 06/21/20 21:00 07/31/20 20:38 Hydroxyzine HCl (Atarax) 25 mg TID PO 06/21/20 21:00 07/31/20 20:37 Albuterol Sulfate (Ventolin Hfa Inhaler) 2 puff PRN Q4HRS PRN INH SHORTNESS OF BREATH 06/21/20 17:15 Divalproex Sodium (Depakote Er) 500 mg QHS PO 06/21/20 21:00 06/24/20 17:35 DC 06/23/20 19:43 Divalproex Sodium (Depakote Er) 500 mg QHS PO 06/22/20 21:00 06/22/20 12:14 DC Sennosides (Senna) 8.6 mg BIDACBL PO 06/23/20 07:30 07/31/20 12:17 Divalproex Sodium (Depakote Er) 750 mg QHS PO 06/24/20 21:00 06/25/20 19:31 DC 06/24/20 21:05 Divalproex Sodium (Depakote Er) 500 mg QHS PO 06/25/20 21:00 07/31/20 20:37 Divalproex Sodium (Depakote Er) 250 mg QHS PO 06/25/20 21:00 07/31/20 20:37 Furosemide (Lasix) 60 mg 1X ONCE PO 06/26/20 21:15 06/26/20 22:10 DC 06/27/20 05:51 Furosemide (Lasix) 40 mg DAILY PO 06/27/20 16:15 07/31/20 08:41 Potassium Chloride (Klor-Con) 20 meq BID PO 06/27/20 21:00 07/31/20 20:37 Fluoxetine HCl (PROzac) 60 mg DAILY08 PO 07/09/20 08:00 07/10/20 20:09 DC 07/10/20 09:09 Bupropion HCl (Wellbutrin Xl) 150 mg DAILY PO 07/09/20 09:00 07/10/20 20:09 DC 07/10/20 09:10 Olanzapine (ZyPREXA ZYDIS) 2.5 mg PRN Q2HR PRN PO PSYCHOSIS 07/10/20 20:00 07/14/20 22:10 Fluoxetine HCl (PROzac) 80 mg DAILY PO 07/11/20 08:00 07/31/20 08:43 Iohexol (Omnipaque 350 Mg/ml) 100 ml 1X ONCE IV 07/27/20 08:30 07/27/20 08:31 DC 07/27/20 08:43 Amoxicillin/ Clavulanate Potassium (Augmentin 875/ 125mg) 1 tab BID PO 07/27/20 21:00 08/05/20 22:00 07/31/20 20:36 Lactobacillus Rhamnosus (Culturelle) 1 cap BID PO 07/27/20 21:00 07/31/20 20:36 I have reviewed the current psychotropics carefully including drug interactions. Risk benefit ratio favors no change other than as noted in my dictated progress note. Diagnosis: Problems: (1) Schizoaffective disorder, bipolar type (2) Impulse control disorder, unspecified (3) Anxiety disorder, unspecified (4) Bipolar disorder, current episode depressed, severe, with psychotic features MICHAEL CLARK MD August 01, 2020 07:48
[2020-08-01] MEDS: LIRAGLUTIDE 1.8 MG SQ SCH (08:00)
[2020-08-01] MEDS: NON FORMULARY ITEM (Olodaterol HCl (Striverdi Respimat) 4 GM) IH SCH (08:00)
[2020-08-01] MEDS: CALCIUM CARB/VIT D3 500/200 TABLET PO SCH ×2 (08:17→20:21)
[2020-08-01] MEDS: SENNOSIDES 8.6 MG TABLET PO SCH ×2 (08:17→12:14)
[2020-08-01] MEDS: POTASSIUM CHLORIDE 20 MEQ TABLET.ER. PO SCH ×2 (08:17→20:21)
[2020-08-01] MEDS: ARIPiprazole 15 MG TABLET PO SCH (08:17)
[2020-08-01] MEDS: DICLOFENAC SODIUM 1% TOPICAL GEL 100GM TUBE. TP SCH ×4 (08:17→20:26)
[2020-08-01] MEDS: ASPIRIN ENTERIC COATED 81 MG TABLET.DR. PO SCH (08:17)
[2020-08-01] MEDS: hydrOXYzine HCL 25 MG TABLET PO SCH ×3 (08:17→20:20)
[2020-08-01] MEDS: QUEtiapine 100 MG TABLET. PO SCH ×2 (08:18→20:20)
[2020-08-01] MEDS: AMOXICILLIN/K CLAV 875/125MG TABLET. PO SCH ×2 (08:18→20:19)
[2020-08-01] MEDS: METOPROLOL TART IMMED RELEASE 25 MG TABLET. PO SCH ×2 (08:18→20:20)
[2020-08-01] MEDS: FLUoxetine HCL 20 MG CAPSULE PO SCH (08:18)
[2020-08-01] MEDS: ISOSORBIDE MONONITRATE ER 30 MG TAB.ER.24H PO SCH (08:19)
[2020-08-01] MEDS: FUROSEMIDE 40 MG TABLET PO SCH (08:19)
[2020-08-01] MEDS: DOCUSATE SODIUM 100 MG CAPSULE PO SCH ×2 (08:19→20:22)
[2020-08-01] MEDS: amLODIPine BESYLATE 5 MG TABLET PO SCH (08:19)
[2020-08-01] MEDS: LACTOBACILLUS RHAMNOSUS GG 1 CAPSULE. PO SCH ×2 (08:19→20:21)
[2020-08-01] MEDS: PANTOPRAZOLE 40 MG TABLET. PO SCH (08:20)
[2020-08-01] MEDS: SALSALATE 500 MG PO SCH ×2 (08:20→20:27)
[2020-08-01] MEDS: MINERAL OIL/PETROLATUM TOPICAL CREAM 113GM JAR. TP SCH ×2 (08:21→20:26)
--- NOTE | 2020-08-01 08:29 | PDOC ---
Exam Note: [place] Note: This note is a late entry for 07/30/2020 covers elements not covered in my initial note. Subjective: The patient was seen individually in the evening of 07/30/2020 with Faiza WOMACK, discussed and reviewed the chart. The patient slept 4-3/4 hours previous night. She is compliant with medications, fairly calm. She gets a little anxious, discussing placement options. Review of Systems: Ambulation impaired in wheelchair. No CV, , pulmonary, eye, ENT system symptoms on review. Mental Status Exam: The patient is oriented to herself and situation. Speech has some latency, coherent. Abstraction fair. Computation impaired. Language function intact. Attention span is short. Mood and affect less labile. Laboratory Data: Reviewed. Impression: Schizoaffective disorder, bipolar type, mixed with psychotic featu res in partial remission. Anxiety disorder unspecified. Impulse control disorder unspecified. Plan: I have carefully reviewed the patients current psychotropics and reviewed information with Dr. Cox who had covered for me for the past 2 weeks. Continue psychotropics from initial note. We will make adjustments further as clinically indicated. Valproic acid level therapeutic at 52 and Depakote unchanged. Assessment: Vital Signs/I&O: Vital Signs Date Time Temp Pulse Resp B/P (MAP) Pulse Ox O2 Delivery O2 Flow Rate FiO2 08/01/20 08:19 85 107/74 08/01/20 05:32 97.7 20 91 Room Air 07/31/20 05:45 2.0 I & O 07/31/20 07/31/20 08/01/20 14:59 22:59 06:59 Intake Total 660 ml 480 ml Balance 660 ml 480 ml Labs: Laboratory Tests Test 08/01/20 06:44 White Blood Count 4.7 x10^3/uL (4.0-11.0) Red Blood Count 4.00 x10^6/uL (3.50-5.40) Hemoglobin 10.7 g/dL (12.0-15.5) L Hematocrit 33.2 % (36.0-47.0) L Mean Corpuscular Volume 83 fL (79-100) Mean Corpuscular Hemoglobin 27 pg (25-35) Mean Corpuscular Hemoglobin Concent 32 g/dL (31-37) Red Cell Distribution Width 17.1 % (11.5-14.5) H Platelet Count 178 x10^3/uL (140-400) Neutrophils (%) (Auto) 58 % (31-73) Lymphocytes (%) (Auto) 18 % (24-48) L Monocytes (%) (Auto) 18 % (0-9) H Eosinophils (%) (Auto) 6 % (0-3) H Basophils (%) (Auto) 1 % (0-3) Neutrophils # (Auto) 2.7 x10^3uL (1.8-7.7) Lymphocytes # (Auto) 0.8 x10^3/uL (1.0-4.8) L Monocytes # (Auto) 0.8 x10^3/uL (0.0-1.1) Eosinophils # (Auto) 0.3 x10^3/uL (0.0-0.7) Basophils # (Auto) 0.0 x10^3/uL (0.0-0.2) Sodium Level 139 mmol/L (136-145) Potassium Level 4.8 mmol/L (3.5-5.1) Chloride Level 102 mmol/L (98-107) Carbon Dioxide Level 29 mmol/L (21-32) Anion Gap 8 (6-14) Blood Urea Nitrogen 16 mg/dL (7-20) Creatinine 1.0 mg/dL (0.6-1.0) Estimated GFR (Cockcroft-Gault) 55.3 BUN/Creatinine Ratio 16 (6-20) Glucose Level 84 mg/dL (70-99) Calcium Level 8.7 mg/dL (8.5-10.1) Total Bilirubin 0.2 mg/dL (0.2-1.0) Aspartate Amino Transferase (AST) 21 U/L (15-37) Alanine Aminotransferase (ALT) 20 U/L (14-59) Alkaline Phosphatase 74 U/L (46-116) Total Protein 6.6 g/dL (6.4-8.2) Albumin 2.8 g/dL (3.4-5.0) L Albumin/Globulin Ratio 0.7 (1.0-1.7) L Current Medications: Meds: Laboratory Tests Test 08/01/20 06:44 White Blood Count 4.7 x10^3/uL Red Blood Count 4.00 x10^6/uL Hemoglobin 10.7 g/dL Hematocrit 33.2 % Mean Corpuscular Volume 83 fL Mean Corpuscular Hemoglobin 27 pg Mean Corpuscular Hemoglobin Concent 32 g/dL Red Cell Distribution Width 17.1 % Platelet Count 178 x10^3/uL Neutrophils (%) (Auto) 58 % Lymphocytes (%) (Auto) 18 % Monocytes (%) (Auto) 18 % Eosinophils (%) (Auto) 6 % Basophils (%) (Auto) 1 % Neutrophils # (Auto) 2.7 x10^3uL Lymphocytes # (Auto) 0.8 x10^3/uL Monocytes # (Auto) 0.8 x10^3/uL Eosinophils # (Auto) 0.3 x10^3/uL Basophils # (Auto) 0.0 x10^3/uL Sodium Level 139 mmol/L Potassium Level 4.8 mmol/L Chloride Level 102 mmol/L Carbon Dioxide Level 29 mmol/L Anion Gap 8 Blood Urea Nitrogen 16 mg/dL Creatinine 1.0 mg/dL Estimated GFR (Cockcroft-Gault) 55.3 BUN/Creatinine Ratio 16 Glucose Level 84 mg/dL Calcium Level 8.7 mg/dL Total Bilirubin 0.2 mg/dL Aspartate Amino Transf (AST/SGOT) 21 U/L Alanine Aminotransferase (ALT/SGPT) 20 U/L Alkaline Phosphatase 74 U/L Total Protein 6.6 g/dL Albumin 2.8 g/dL Albumin/Globulin Ratio 0.7 Current Medications Medications (Trade) Dose Ordered Sig/Indra Route PRN Reason Start Time Stop Time Status Last Admin Dose Admin Acetaminophen (Tylenol) 650 mg PRN Q6HRS PRN PO MILD PAIN / TEMP > 100.3'F 06/21/20 16:15 Multi-Ingredient Ointment (Analgesic [place]) 1 joesph PRN QID PRN TP MUSCLE PAIN 06/21/20 16:15 Al Hydroxide/Mg Hydroxide (Mylanta Plus Xs) 15 ml PRN AFTMEALHC PRN PO DYSPEPSIA 06/21/20 16:15 Magnesium Hydroxide (Milk Of Magnesia) 2,400 mg PRN QHS PRN PO CONSTIPATION 06/21/20 16:15 Acetaminophen (Tylenol) 500 mg PRN Q6HRS PRN PO pain or fever 06/21/20 16:30 UNV Albuterol Sulfate (Ventolin) 2.5 mg PRN Q4HRS PRN IH FOR ASTHMA 06/21/20 16:30 UNV Amlodipine Besylate (Norvasc) 5 mg DAILY PO 06/22/20 09:00 08/01/20 08:19 Aripiprazole (Abilify) 15 mg DAILY PO 06/22/20 09:00 08/01/20 08:17 Aspirin (Aspirin Enteric Coated) 81 mg DAILY PO 06/22/20 09:00 08/01/20 08:17 Atorvastatin Calcium (Lipitor) 20 mg QHS PO 06/21/20 21:00 07/31/20 20:38 Calcium/Vitamin D (Oscal D 500mg/ 200uts) 1 tab BID PO 06/21/20 21:00 08/01/20 08:17 Vitamin D (Vitamin D3) 50,000 unit WEEKLY PO 06/25/20 09:00 07/30/20 08:23 Clonazepam (KlonoPIN) 0.5 mg PRN BID PRN PO ANXIETY / AGITATION 06/21/20 16:30 07/31/20 20:45 Cyanocobalamin (Vitamin B-12) 1,000 mcg QMONTH IM 07/17/20 09:00 07/17/20 08:38 Diclofenac Sodium (Voltaren) 2 joesph QID TP 06/21/20 17:00 08/01/20 08:17 Docusate Sodium (Colace) 100 mg BID PO 06/21/20 21:00 08/01/20 08:19 Furosemide (Lasix) 20 mg DAILY16 PO 06/22/20 16:00 06/27/20 16:15 DC 06/26/20 15:52 Isosorbide Mononitrate (Imdur) 30 mg DAILY08 PO 06/22/20 08:00 08/01/20 08:19 Ketoconazole (Nizoral 2% Shampoo) 1 joesph PRN DAILY PRN TP DANDRUFF 06/21/20 16:30 Levothyroxine Sodium (Synthroid) 75 mcg DAILY06 PO 06/22/20 06:00 08/01/20 05:38 Metoprolol Tartrate (Lopressor) 12.5 mg BID PO 06/21/20 21:00 08/01/20 08:18 Pantoprazole Sodium (Protonix) 40 mg DAILY08 PO 06/22/20 08:00 08/01/20 08:20 Ropinirole HCl (Requip) 0.5 mg HS PO 06/21/20 21:00 07/31/20 20:36 Salsalate (Salsalate) 1,000 mg 2100 PO 06/21/20 21:00 07/31/20 20:38 Salsalate (Salsalate) 1,500 mg 0800 PO 06/22/20 08:00 08/01/20 08:20 Sennosides (Senna) 8.6 mg BID76 PO 06/21/20 18:00 06/23/20 05:00 DC 06/22/20 16:04 Tramadol HCl (Ultram) 50 mg PRN Q6HRS PRN PO MOD-SEV PAIN 06/21/20 16:30 07/22/20 09:03 Triamcinolone Acetonide (Kenalog) 1 joesph PRN Q12HR PRN TP ITCHING 06/21/20 16:30 Vitamin A/Vitamin D (Vitamin A & D Ointment) 1 joesph PRN Q1HR PRN TP DRY SKIN / SCALING 06/21/20 16:30 Multi-Ingred Cream/Lotion/Oil/ Oint (Hydrocerin) 1 joesph BID TP 06/21/20 21:00 07/30/20 20:43 Fluoxetine HCl (PROzac) 80 mg DAILY08 PO 06/22/20 08:00 07/08/20 18:05 DC 07/08/20 04:26 Non-Formulary Medication (Liraglutide (Saxenda)) 1.8 mg 0800 SQ 06/22/20 08:00 UNV Melatonin (Melatonin) 3 mg HS PO 06/21/20 21:00 07/31/20 20:37 Non-Formulary Medication (Olodaterol HCl (Striverdi Respimat)) 4 gm DAILY08 IH 06/22/20 08:00 UNV Potassium Chloride (Klor-Con) 10 meq TID PO 06/21/20 21:00 06/27/20 16:15 DC 06/27/20 13:12 Quetiapine Fumarate (SEROquel) 300 mg DAILY08 PO 06/22/20 08:00 08/01/20 08:18 Quetiapine Fumarate (SEROquel) 600 mg HS PO 06/21/20 21:00 07/31/20 20:38 Hydroxyzine HCl (Atarax) 25 mg TID PO 06/21/20 21:00 08/01/20 08:17 Albuterol Sulfate (Ventolin Hfa Inhaler) 2 puff PRN Q4HRS PRN INH SHORTNESS OF BREATH 06/21/20 17:15 Divalproex Sodium (Depakote Er) 500 mg QHS PO 06/21/20 21:00 06/24/20 17:35 DC 06/23/20 19:43 Divalproex Sodium (Depakote Er) 500 mg QHS PO 06/22/20 21:00 06/22/20 12:14 DC Sennosides (Senna) 8.6 mg BIDACBL PO 06/23/20 07:30 08/01/20 08:17 Divalproex Sodium (Depakote Er) 750 mg QHS PO 06/24/20 21:00 06/25/20 19:31 DC 06/24/20 21:05 Divalproex Sodium (Depakote Er) 500 mg QHS PO 06/25/20 21:00 07/31/20 20:37 Divalproex Sodium (Depakote Er) 250 mg QHS PO 06/25/20 21:00 07/31/20 20:37 Furosemide (Lasix) 60 mg 1X ONCE PO 06/26/20 21:15 06/26/20 22:10 DC 06/27/20 05:51 Furosemide (Lasix) 40 mg DAILY PO 06/27/20 16:15 08/01/20 08:19 Potassium Chloride (Klor-Con) 20 meq BID PO 06/27/20 21:00 08/01/20 08:17 Fluoxetine HCl (PROzac) 60 mg DAILY08 PO 07/09/20 08:00 07/10/20 20:09 DC 07/10/20 09:09 Bupropion HCl (Wellbutrin Xl) 150 mg DAILY PO 07/09/20 09:00 07/10/20 20:09 DC 07/10/20 09:10 Olanzapine (ZyPREXA ZYDIS) 2.5 mg PRN Q2HR PRN PO PSYCHOSIS 07/10/20 20:00 07/14/20 22:10 Fluoxetine HCl (PROzac) 80 mg DAILY PO 07/11/20 08:00 08/01/20 08:18 Iohexol (Omnipaque 350 Mg/ml) 100 ml 1X ONCE IV 07/27/20 08:30 07/27/20 08:31 DC 07/27/20 08:43 Amoxicillin/ Clavulanate Potassium (Augmentin 875/ 125mg) 1 tab BID PO 07/27/20 21:00 08/05/20 22:00 08/01/20 08:18 Lactobacillus Rhamnosus (Culturelle) 1 cap BID PO 07/27/20 21:00 08/01/20 08:19 I have reviewed the current psychotropics carefully including drug interactions. Risk benefit ratio favors no change other than as noted in my dictated progress note. Diagnosis: Problems: (1) Anxiety disorder, unspecified (2) Impulse control disorder, unspecified (3) Bipolar 1 disorder, mixed, partial remission MICHAEL CLARK MD August 01, 2020 08:29
--- NOTE | 2020-08-01 08:54 | PDOC ---
Exam Note: [place] Note: This note is a late entry for 07/31/2020 covers elements not covered in my initial note. Subjective: The patient was seen individually in the evening of 07/31/2020 with Eden WOMACK, discussed and reviewed the chart. The patient slept 6-1/4 hours previous night. She has been irritable at times, anxious, repeatedly picking on her skin. She has taken her medications, at times withdrawn into her room. She refused to attend the holiness service this morning at 11 a.m. Review of Systems: Ambulation impaired in wheelchair. No CV, , eye, ENT system symptoms on review. Mental Status Exam: The patient is oriented to herself and situation. The patient had many questions about discharge plans and I addressed this with her. Speech coherent, has some latency. Abstraction fair. Computation impaired. Language function intact. Mood and affect depressed, labile. Laboratory Data: Reviewed. Impression: Schizoaffective disorder, bipolar type, mixed with psychotic features in partial remission. Anxiety disorder unspecified. Impulse control disorder unspecified. Plan: No change from initial note. Assessment: Vital Signs/I&O: Vital Signs Date Time Temp Pulse Resp B/P (MAP) Pulse Ox O2 Delivery O2 Flow Rate FiO2 08/01/20 08:19 85 107/74 08/01/20 05:32 97.7 20 91 Room Air 07/31/20 05:45 2.0 I & O 07/31/20 07/31/20 08/01/20 15:00 23:00 07:00 Intake Total 660 ml 480 ml Balance 660 ml 480 ml Labs: Laboratory Tests Test 08/01/20 06:44 White Blood Count 4.7 x10^3/uL (4.0-11.0) Red Blood Count 4.00 x10^6/uL (3.50-5.40) Hemoglobin 10.7 g/dL (12.0-15.5) L Hematocrit 33.2 % (36.0-47.0) L Mean Corpuscular Volume 83 fL (79-100) Mean Corpuscular Hemoglobin 27 pg (25-35) Mean Corpuscular Hemoglobin Concent 32 g/dL (31-37) Red Cell Distribution Width 17.1 % (11.5-14.5) H Platelet Count 178 x10^3/uL (140-400) Neutrophils (%) (Auto) 58 % (31-73) Lymphocytes (%) (Auto) 18 % (24-48) L Monocytes (%) (Auto) 18 % (0-9) H Eosinophils (%) (Auto) 6 % (0-3) H Basophils (%) (Auto) 1 % (0-3) Neutrophils # (Auto) 2.7 x10^3uL (1.8-7.7) Lymphocytes # (Auto) 0.8 x10^3/uL (1.0-4.8) L Monocytes # (Auto) 0.8 x10^3/uL (0.0-1.1) Eosinophils # (Auto) 0.3 x10^3/uL (0.0-0.7) Basophils # (Auto) 0.0 x10^3/uL (0.0-0.2) Sodium Level 139 mmol/L (136-145) Potassium Level 4.8 mmol/L (3.5-5.1) Chloride Level 102 mmol/L (98-107) Carbon Dioxide Level 29 mmol/L (21-32) Anion Gap 8 (6-14) Blood Urea Nitrogen 16 mg/dL (7-20) Creatinine 1.0 mg/dL (0.6-1.0) Estimated GFR (Cockcroft-Gault) 55.3 BUN/Creatinine Ratio 16 (6-20) Glucose Level 84 mg/dL (70-99) Calcium Level 8.7 mg/dL (8.5-10.1) Total Bilirubin 0.2 mg/dL (0.2-1.0) Aspartate Amino Transferase (AST) 21 U/L (15-37) Alanine Aminotransferase (ALT) 20 U/L (14-59) Alkaline Phosphatase 74 U/L (46-116) Total Protein 6.6 g/dL (6.4-8.2) Albumin 2.8 g/dL (3.4-5.0) L Albumin/Globulin Ratio 0.7 (1.0-1.7) L Current Medications: Meds: Laboratory Tests Test 08/01/20 06:44 White Blood Count 4.7 x10^3/uL Red Blood Count 4.00 x10^6/uL Hemoglobin 10.7 g/dL Hematocrit 33.2 % Mean Corpuscular Volume 83 fL Mean Corpuscular Hemoglobin 27 pg Mean Corpuscular Hemoglobin Concent 32 g/dL Red Cell Distribution Width 17.1 % Platelet Count 178 x10^3/uL Neutrophils (%) (Auto) 58 % Lymphocytes (%) (Auto) 18 % Monocytes (%) (Auto) 18 % Eosinophils (%) (Auto) 6 % Basophils (%) (Auto) 1 % Neutrophils # (Auto) 2.7 x10^3uL Lymphocytes # (Auto) 0.8 x10^3/uL Monocytes # (Auto) 0.8 x10^3/uL Eosinophils # (Auto) 0.3 x10^3/uL Basophils # (Auto) 0.0 x10^3/uL Sodium Level 139 mmol/L Potassium Level 4.8 mmol/L Chloride Level 102 mmol/L Carbon Dioxide Level 29 mmol/L Anion Gap 8 Blood Urea Nitrogen 16 mg/dL Creatinine 1.0 mg/dL Estimated GFR (Cockcroft-Gault) 55.3 BUN/Creatinine Ratio 16 Glucose Level 84 mg/dL Calcium Level 8.7 mg/dL Total Bilirubin 0.2 mg/dL Aspartate Amino Transf (AST/SGOT) 21 U/L Alanine Aminotransferase (ALT/SGPT) 20 U/L Alkaline Phosphatase 74 U/L Total Protein 6.6 g/dL Albumin 2.8 g/dL Albumin/Globulin Ratio 0.7 Current Medications Medications (Trade) Dose Ordered Sig/Indra Route PRN Reason Start Time Stop Time Status Last Admin Dose Admin Acetaminophen (Tylenol) 650 mg PRN Q6HRS PRN PO MILD PAIN / TEMP > 100.3'F 06/21/20 16:15 Multi-Ingredient Ointment (Analgesic [place]) 1 joesph PRN QID PRN TP MUSCLE PAIN 06/21/20 16:15 Al Hydroxide/Mg Hydroxide (Mylanta Plus Xs) 15 ml PRN AFTMEALHC PRN PO DYSPEPSIA 06/21/20 16:15 Magnesium Hydroxide (Milk Of Magnesia) 2,400 mg PRN QHS PRN PO CONSTIPATION 06/21/20 16:15 Acetaminophen (Tylenol) 500 mg PRN Q6HRS PRN PO pain or fever 06/21/20 16:30 UNV Albuterol Sulfate (Ventolin) 2.5 mg PRN Q4HRS PRN IH FOR ASTHMA 06/21/20 16:30 UNV Amlodipine Besylate (Norvasc) 5 mg DAILY PO 06/22/20 09:00 08/01/20 08:19 Aripiprazole (Abilify) 15 mg DAILY PO 06/22/20 09:00 08/01/20 08:17 Aspirin (Aspirin Enteric Coated) 81 mg DAILY PO 06/22/20 09:00 08/01/20 08:17 Atorvastatin Calcium (Lipitor) 20 mg QHS PO 06/21/20 21:00 07/31/20 20:38 Calcium/Vitamin D (Oscal D 500mg/ 200uts) 1 tab BID PO 06/21/20 21:00 08/01/20 08:17 Vitamin D (Vitamin D3) 50,000 unit WEEKLY PO 06/25/20 09:00 07/30/20 08:23 Clonazepam (KlonoPIN) 0.5 mg PRN BID PRN PO ANXIETY / AGITATION 06/21/20 16:30 07/31/20 20:45 Cyanocobalamin (Vitamin B-12) 1,000 mcg QMONTH IM 07/17/20 09:00 07/17/20 08:38 Diclofenac Sodium (Voltaren) 2 joesph QID TP 06/21/20 17:00 08/01/20 08:17 Docusate Sodium (Colace) 100 mg BID PO 06/21/20 21:00 08/01/20 08:19 Furosemide (Lasix) 20 mg DAILY16 PO 06/22/20 16:00 06/27/20 16:15 DC 06/26/20 15:52 Isosorbide Mononitrate (Imdur) 30 mg DAILY08 PO 06/22/20 08:00 08/01/20 08:19 Ketoconazole (Nizoral 2% Shampoo) 1 joesph PRN DAILY PRN TP DANDRUFF 06/21/20 16:30 Levothyroxine Sodium (Synthroid) 75 mcg DAILY06 PO 06/22/20 06:00 08/01/20 05:38 Metoprolol Tartrate (Lopressor) 12.5 mg BID PO 06/21/20 21:00 08/01/20 08:18 Pantoprazole Sodium (Protonix) 40 mg DAILY08 PO 06/22/20 08:00 08/01/20 08:20 Ropinirole HCl (Requip) 0.5 mg HS PO 06/21/20 21:00 07/31/20 20:36 Salsalate (Salsalate) 1,000 mg 2100 PO 06/21/20 21:00 07/31/20 20:38 Salsalate (Salsalate) 1,500 mg 0800 PO 06/22/20 08:00 08/01/20 08:20 Sennosides (Senna) 8.6 mg BID76 PO 06/21/20 18:00 06/23/20 05:00 DC 06/22/20 16:04 Tramadol HCl (Ultram) 50 mg PRN Q6HRS PRN PO MOD-SEV PAIN 06/21/20 16:30 07/22/20 09:03 Triamcinolone Acetonide (Kenalog) 1 joesph PRN Q12HR PRN TP ITCHING 06/21/20 16:30 Vitamin A/Vitamin D (Vitamin A & D Ointment) 1 joepsh PRN Q1HR PRN TP DRY SKIN / SCALING 06/21/20 16:30 Multi-Ingred Cream/Lotion/Oil/ Oint (Hydrocerin) 1 joesph BID TP 06/21/20 21:00 07/30/20 20:43 Fluoxetine HCl (PROzac) 80 mg DAILY08 PO 06/22/20 08:00 07/08/20 18:05 DC 07/08/20 04:26 Non-Formulary Medication (Liraglutide (Saxenda)) 1.8 mg 0800 SQ 06/22/20 08:00 UNV Melatonin (Melatonin) 3 mg HS PO 06/21/20 21:00 07/31/20 20:37 Non-Formulary Medication (Olodaterol HCl (Striverdi Respimat)) 4 gm DAILY08 IH 06/22/20 08:00 UNV Potassium Chloride (Klor-Con) 10 meq TID PO 06/21/20 21:00 06/27/20 16:15 DC 06/27/20 13:12 Quetiapine Fumarate (SEROquel) 300 mg DAILY08 PO 06/22/20 08:00 08/01/20 08:18 Quetiapine Fumarate (SEROquel) 600 mg HS PO 06/21/20 21:00 07/31/20 20:38 Hydroxyzine HCl (Atarax) 25 mg TID PO 06/21/20 21:00 08/01/20 08:17 Albuterol Sulfate (Ventolin Hfa Inhaler) 2 puff PRN Q4HRS PRN INH SHORTNESS OF BREATH 06/21/20 17:15 Divalproex Sodium (Depakote Er) 500 mg QHS PO 06/21/20 21:00 06/24/20 17:35 DC 06/23/20 19:43 Divalproex Sodium (Depakote Er) 500 mg QHS PO 06/22/20 21:00 06/22/20 12:14 DC Sennosides (Senna) 8.6 mg BIDACBL PO 06/23/20 07:30 08/01/20 08:17 Divalproex Sodium (Depakote Er) 750 mg QHS PO 06/24/20 21:00 06/25/20 19:31 DC 06/24/20 21:05 Divalproex Sodium (Depakote Er) 500 mg QHS PO 06/25/20 21:00 07/31/20 20:37 Divalproex Sodium (Depakote Er) 250 mg QHS PO 06/25/20 21:00 07/31/20 20:37 Furosemide (Lasix) 60 mg 1X ONCE PO 06/26/20 21:15 06/26/20 22:10 DC 06/27/20 05:51 Furosemide (Lasix) 40 mg DAILY PO 06/27/20 16:15 08/01/20 08:19 Potassium Chloride (Klor-Con) 20 meq BID PO 06/27/20 21:00 08/01/20 08:17 Fluoxetine HCl (PROzac) 60 mg DAILY08 PO 07/09/20 08:00 07/10/20 20:09 DC 07/10/20 09:09 Bupropion HCl (Wellbutrin Xl) 150 mg DAILY PO 07/09/20 09:00 07/10/20 20:09 DC 07/10/20 09:10 Olanzapine (ZyPREXA ZYDIS) 2.5 mg PRN Q2HR PRN PO PSYCHOSIS 07/10/20 20:00 07/14/20 22:10 Fluoxetine HCl (PROzac) 80 mg DAILY PO 07/11/20 08:00 08/01/20 08:18 Iohexol (Omnipaque 350 Mg/ml) 100 ml 1X ONCE IV 07/27/20 08:30 07/27/20 08:31 DC 07/27/20 08:43 Amoxicillin/ Clavulanate Potassium (Augmentin 875/ 125mg) 1 tab BID PO 07/27/20 21:00 08/05/20 22:00 08/01/20 08:18 Lactobacillus Rhamnosus (Culturelle) 1 cap BID PO 07/27/20 21:00 08/01/20 08:19 I have reviewed the current psychotropics carefully including drug interactions. Risk benefit ratio favors no change other than as noted in my dictated progress note. Diagnosis: Problems: (1) Bipolar 1 disorder, mixed, partial remission (2) Schizoaffective disorder, bipolar type (3) Impulse control disorder, unspecified (4) Anxiety disorder, unspecified MICHAEL CLARK MD August 01, 2020 08:54
[2020-08-01 16:01] VITALS: BP 101/59
[2020-08-01] MEDS: DIVALPROEX ER 250 MG TAB.ER.24H. PO SCH (20:21)
[2020-08-01] MEDS: rOPINIRole 0.5 MG TABLET. PO SCH (20:21)
[2020-08-01] MEDS: ATORVASTATIN CALCIUM 20 MG TABLET PO SCH (20:22)
[2020-08-01] MEDS: MELATONIN 3 MG TABLET PO SCH (20:22)
[2020-08-01] MEDS: DIVALPROEX ER 500 MG TAB.ER.24H PO SCH (20:22)
[2020-08-01] MEDS: clonazePAM 0.5 MG TABLET PO PRN (20:30)
--- NOTE | 2020-08-01 22:11 | PDOC ---
Exam Note: [place] Note: Please also refer to the separate dictated note~for this date of service dictated separately.~Patient seen individually. Discussed the patient with Nursing staff reviewed the chart.~Reviewed interim history and current functioning. Reviewed vital signs,~Labs/ Radiology~and current medications noted below. Continue current treatment with the changes noted in the dictated addendum note Assessment: Vital Signs/I&O: Vital Signs Date Time Temp Pulse Resp B/P (MAP) Pulse Ox O2 Delivery O2 Flow Rate FiO2 08/01/20 20:20 67 101/59 08/01/20 16:01 98.5 20 94 08/01/20 05:32 Room Air 07/31/20 05:45 2.0 I & O 07/31/20 07/31/20 08/01/20 15:00 23:00 07:00 Intake Total 660 ml 480 ml Balance 660 ml 480 ml Labs: Laboratory Tests Test 08/01/20 06:44 White Blood Count 4.7 x10^3/uL (4.0-11.0) Red Blood Count 4.00 x10^6/uL (3.50-5.40) Hemoglobin 10.7 g/dL (12.0-15.5) L Hematocrit 33.2 % (36.0-47.0) L Mean Corpuscular Volume 83 fL (79-100) Mean Corpuscular Hemoglobin 27 pg (25-35) Mean Corpuscular Hemoglobin Concent 32 g/dL (31-37) Red Cell Distribution Width 17.1 % (11.5-14.5) H Platelet Count 178 x10^3/uL (140-400) Neutrophils (%) (Auto) 58 % (31-73) Lymphocytes (%) (Auto) 18 % (24-48) L Monocytes (%) (Auto) 18 % (0-9) H Eosinophils (%) (Auto) 6 % (0-3) H Basophils (%) (Auto) 1 % (0-3) Neutrophils # (Auto) 2.7 x10^3uL (1.8-7.7) Lymphocytes # (Auto) 0.8 x10^3/uL (1.0-4.8) L Monocytes # (Auto) 0.8 x10^3/uL (0.0-1.1) Eosinophils # (Auto) 0.3 x10^3/uL (0.0-0.7) Basophils # (Auto) 0.0 x10^3/uL (0.0-0.2) Sodium Level 139 mmol/L (136-145) Potassium Level 4.8 mmol/L (3.5-5.1) Chloride Level 102 mmol/L (98-107) Carbon Dioxide Level 29 mmol/L (21-32) Anion Gap 8 (6-14) Blood Urea Nitrogen 16 mg/dL (7-20) Creatinine 1.0 mg/dL (0.6-1.0) Estimated GFR (Cockcroft-Gault) 55.3 BUN/Creatinine Ratio 16 (6-20) Glucose Level 84 mg/dL (70-99) Calcium Level 8.7 mg/dL (8.5-10.1) Total Bilirubin 0.2 mg/dL (0.2-1.0) Aspartate Amino Transferase (AST) 21 U/L (15-37) Alanine Aminotransferase (ALT) 20 U/L (14-59) Alkaline Phosphatase 74 U/L (46-116) Total Protein 6.6 g/dL (6.4-8.2) Albumin 2.8 g/dL (3.4-5.0) L Albumin/Globulin Ratio 0.7 (1.0-1.7) L Current Medications: Meds: Laboratory Tests Test 08/01/20 06:44 White Blood Count 4.7 x10^3/uL Red Blood Count 4.00 x10^6/uL Hemoglobin 10.7 g/dL Hematocrit 33.2 % Mean Corpuscular Volume 83 fL Mean Corpuscular Hemoglobin 27 pg Mean Corpuscular Hemoglobin Concent 32 g/dL Red Cell Distribution Width 17.1 % Platelet Count 178 x10^3/uL Neutrophils (%) (Auto) 58 % Lymphocytes (%) (Auto) 18 % Monocytes (%) (Auto) 18 % Eosinophils (%) (Auto) 6 % Basophils (%) (Auto) 1 % Neutrophils # (Auto) 2.7 x10^3uL Lymphocytes # (Auto) 0.8 x10^3/uL Monocytes # (Auto) 0.8 x10^3/uL Eosinophils # (Auto) 0.3 x10^3/uL Basophils # (Auto) 0.0 x10^3/uL Sodium Level 139 mmol/L Potassium Level 4.8 mmol/L Chloride Level 102 mmol/L Carbon Dioxide Level 29 mmol/L Anion Gap 8 Blood Urea Nitrogen 16 mg/dL Creatinine 1.0 mg/dL Estimated GFR (Cockcroft-Gault) 55.3 BUN/Creatinine Ratio 16 Glucose Level 84 mg/dL Calcium Level 8.7 mg/dL Total Bilirubin 0.2 mg/dL Aspartate Amino Transf (AST/SGOT) 21 U/L Alanine Aminotransferase (ALT/SGPT) 20 U/L Alkaline Phosphatase 74 U/L Total Protein 6.6 g/dL Albumin 2.8 g/dL Albumin/Globulin Ratio 0.7 Current Medications Medications (Trade) Dose Ordered Sig/Indra Route PRN Reason Start Time Stop Time Status Last Admin Dose Admin Acetaminophen (Tylenol) 650 mg PRN Q6HRS PRN PO MILD PAIN / TEMP > 100.3'F 06/21/20 16:15 Multi-Ingredient Ointment (Analgesic [place]) 1 joesph PRN QID PRN TP MUSCLE PAIN 06/21/20 16:15 Al Hydroxide/Mg Hydroxide (Mylanta Plus Xs) 15 ml PRN AFTMEALHC PRN PO DYSPEPSIA 06/21/20 16:15 Magnesium Hydroxide (Milk Of Magnesia) 2,400 mg PRN QHS PRN PO CONSTIPATION 06/21/20 16:15 Acetaminophen (Tylenol) 500 mg PRN Q6HRS PRN PO pain or fever 06/21/20 16:30 UNV Albuterol Sulfate (Ventolin) 2.5 mg PRN Q4HRS PRN IH FOR ASTHMA 06/21/20 16:30 UNV Amlodipine Besylate (Norvasc) 5 mg DAILY PO 06/22/20 09:00 08/01/20 08:19 Aripiprazole (Abilify) 15 mg DAILY PO 06/22/20 09:00 08/01/20 08:17 Aspirin (Aspirin Enteric Coated) 81 mg DAILY PO 06/22/20 09:00 08/01/20 08:17 Atorvastatin Calcium (Lipitor) 20 mg QHS PO 06/21/20 21:00 08/01/20 20:22 Calcium/Vitamin D (Oscal D 500mg/ 200uts) 1 tab BID PO 06/21/20 21:00 08/01/20 20:21 Vitamin D (Vitamin D3) 50,000 unit WEEKLY PO 06/25/20 09:00 07/30/20 08:23 Clonazepam (KlonoPIN) 0.5 mg PRN BID PRN PO ANXIETY / AGITATION 06/21/20 16:30 08/01/20 20:30 Cyanocobalamin (Vitamin B-12) 1,000 mcg QMONTH IM 07/17/20 09:00 07/17/20 08:38 Diclofenac Sodium (Voltaren) 2 joesph QID TP 06/21/20 17:00 08/01/20 20:26 Docusate Sodium (Colace) 100 mg BID PO 06/21/20 21:00 08/01/20 20:22 Furosemide (Lasix) 20 mg DAILY16 PO 06/22/20 16:00 06/27/20 16:15 DC 06/26/20 15:52 Isosorbide Mononitrate (Imdur) 30 mg DAILY08 PO 06/22/20 08:00 08/01/20 08:19 Ketoconazole (Nizoral 2% Shampoo) 1 joesph PRN DAILY PRN TP DANDRUFF 06/21/20 16:30 Levothyroxine Sodium (Synthroid) 75 mcg DAILY06 PO 06/22/20 06:00 08/01/20 05:38 Metoprolol Tartrate (Lopressor) 12.5 mg BID PO 06/21/20 21:00 08/01/20 20:20 Pantoprazole Sodium (Protonix) 40 mg DAILY08 PO 06/22/20 08:00 08/01/20 08:20 Ropinirole HCl (Requip) 0.5 mg HS PO 06/21/20 21:00 08/01/20 20:21 Salsalate (Salsalate) 1,000 mg 2100 PO 06/21/20 21:00 08/01/20 20:27 Salsalate (Salsalate) 1,500 mg 0800 PO 06/22/20 08:00 08/01/20 08:20 Sennosides (Senna) 8.6 mg BID76 PO 06/21/20 18:00 06/23/20 05:00 DC 06/22/20 16:04 Tramadol HCl (Ultram) 50 mg PRN Q6HRS PRN PO MOD-SEV PAIN 06/21/20 16:30 07/22/20 09:03 Triamcinolone Acetonide (Kenalog) 1 joesph PRN Q12HR PRN TP ITCHING 06/21/20 16:30 Vitamin A/Vitamin D (Vitamin A & D Ointment) 1 joesph PRN Q1HR PRN TP DRY SKIN / SCALING 06/21/20 16:30 Multi-Ingred Cream/Lotion/Oil/ Oint (Hydrocerin) 1 joesph BID TP 06/21/20 21:00 08/01/20 20:26 Fluoxetine HCl (PROzac) 80 mg DAILY08 PO 06/22/20 08:00 07/08/20 18:05 DC 07/08/20 04:26 Non-Formulary Medication (Liraglutide (Saxenda)) 1.8 mg 0800 SQ 06/22/20 08:00 UNV Melatonin (Melatonin) 3 mg HS PO 06/21/20 21:00 08/01/20 20:22 Non-Formulary Medication (Olodaterol HCl (Striverdi Respimat)) 4 gm DAILY08 IH 06/22/20 08:00 UNV Potassium Chloride (Klor-Con) 10 meq TID PO 06/21/20 21:00 06/27/20 16:15 DC 06/27/20 13:12 Quetiapine Fumarate (SEROquel) 300 mg DAILY08 PO 06/22/20 08:00 08/01/20 08:18 Quetiapine Fumarate (SEROquel) 600 mg HS PO 06/21/20 21:00 08/01/20 20:20 Hydroxyzine HCl (Atarax) 25 mg TID PO 06/21/20 21:00 08/01/20 20:20 Albuterol Sulfate (Ventolin Hfa Inhaler) 2 puff PRN Q4HRS PRN INH SHORTNESS OF BREATH 06/21/20 17:15 Divalproex Sodium (Depakote Er) 500 mg QHS PO 06/21/20 21:00 06/24/20 17:35 DC 06/23/20 19:43 Divalproex Sodium (Depakote Er) 500 mg QHS PO 06/22/20 21:00 06/22/20 12:14 DC Sennosides (Senna) 8.6 mg BIDACBL PO 06/23/20 07:30 08/01/20 12:14 Divalproex Sodium (Depakote Er) 750 mg QHS PO 06/24/20 21:00 06/25/20 19:31 DC 06/24/20 21:05 Divalproex Sodium (Depakote Er) 500 mg QHS PO 06/25/20 21:00 08/01/20 20:22 Divalproex Sodium (Depakote Er) 250 mg QHS PO 06/25/20 21:00 08/01/20 20:21 Furosemide (Lasix) 60 mg 1X ONCE PO 06/26/20 21:15 06/26/20 22:10 DC 06/27/20 05:51 Furosemide (Lasix) 40 mg DAILY PO 06/27/20 16:15 08/01/20 08:19 Potassium Chloride (Klor-Con) 20 meq BID PO 06/27/20 21:00 08/01/20 20:21 Fluoxetine HCl (PROzac) 60 mg DAILY08 PO 07/09/20 08:00 07/10/20 20:09 DC 07/10/20 09:09 Bupropion HCl (Wellbutrin Xl) 150 mg DAILY PO 07/09/20 09:00 07/10/20 20:09 DC 07/10/20 09:10 Olanzapine (ZyPREXA ZYDIS) 2.5 mg PRN Q2HR PRN PO PSYCHOSIS 07/10/20 20:00 07/14/20 22:10 Fluoxetine HCl (PROzac) 80 mg DAILY PO 07/11/20 08:00 08/01/20 08:18 Iohexol (Omnipaque 350 Mg/ml) 100 ml 1X ONCE IV 07/27/20 08:30 07/27/20 08:31 DC 07/27/20 08:43 Amoxicillin/ Clavulanate Potassium (Augmentin 875/ 125mg) 1 tab BID PO 07/27/20 21:00 08/05/20 22:00 08/01/20 20:19 Lactobacillus Rhamnosus (Culturelle) 1 cap BID PO 07/27/20 21:00 08/01/20 20:21 I have reviewed the current psychotropics carefully including drug interactions. Risk benefit ratio favors no change other than as noted in my dictated progress note. Diagnosis: Problems: (1) Schizoaffective disorder, bipolar type (2) Impulse control disorder, unspecified (3) Anxiety disorder, unspecified (4) Bipolar 1 disorder, mixed, partial remission MICHAEL CLARK MD August 01, 2020 22:11
[2020-08-02] MEDS: LEVOTHYROXINE 75 MCG TABLET PO SCH (05:15)
[2020-08-02 06:22] VITALS: BP 146/90
--- NOTE | 2020-08-02 06:53 | PDOC ---
Exam Note: [place] Note: This note is a late entry for 08/01/2020 covers elements not covered in my initial note. Subjective: The patient was seen individually in the evening of 08/01/2020 with Niesha WOMACK, discussed and reviewed the chart. The patient slept 7 hours previous night. She has been anxious, somewhat depressed. She has been scratching back of her neck previous evening but not today. She remains anxious, wanting to be discharged. I addressed this with her individually. Review of Systems: Ambulation impaired in wheelchair. No CV, , pulmonary, eye system symptoms on review. Mental Status Exam: The patient is oriented to herself and situation. Speech coherent, has some latency. Abstraction fair. Computation impaired. Language function intact. Mood and affect depressed, anxious. Laboratory Data: Reviewed. Impression: Schizoaffective disorder, bipolar type, mixed with psychotic features in partial remission. Anxiety disorder unspecified. Impulse control disorder unspecified. Plan: No change from initial note. Assessment: Vital Signs/I&O: Vital Signs Date Time Temp Pulse Resp B/P (MAP) Pulse Ox O2 Delivery O2 Flow Rate FiO2 08/02/20 06:22 97.6 49 20 146/90 (108) 98 Nasal Cannula 2.0 I & O 08/01/20 08/01/20 08/02/20 15:00 23:00 07:00 Intake Total 480 ml 720 ml 120 ml Balance 480 ml 720 ml 120 ml Current Medications: Meds: Current Medications Medications (Trade) Dose Ordered Sig/Indra Route PRN Reason Start Time Stop Time Status Last Admin Dose Admin Acetaminophen (Tylenol) 650 mg PRN Q6HRS PRN PO MILD PAIN / TEMP > 100.3'F 06/21/20 16:15 Multi-Ingredient Ointment (Analgesic [place]) 1 joesph PRN QID PRN TP MUSCLE PAIN 06/21/20 16:15 Al Hydroxide/Mg Hydroxide (Mylanta Plus Xs) 15 ml PRN AFTMEALHC PRN PO DYSPEPSIA 06/21/20 16:15 Magnesium Hydroxide (Milk Of Magnesia) 2,400 mg PRN QHS PRN PO CONSTIPATION 06/21/20 16:15 Acetaminophen (Tylenol) 500 mg PRN Q6HRS PRN PO pain or fever 06/21/20 16:30 UNV Albuterol Sulfate (Ventolin) 2.5 mg PRN Q4HRS PRN IH FOR ASTHMA 06/21/20 16:30 UNV Amlodipine Besylate (Norvasc) 5 mg DAILY PO 06/22/20 09:00 08/01/20 08:19 Aripiprazole (Abilify) 15 mg DAILY PO 06/22/20 09:00 08/01/20 08:17 Aspirin (Aspirin Enteric Coated) 81 mg DAILY PO 06/22/20 09:00 08/01/20 08:17 Atorvastatin Calcium (Lipitor) 20 mg QHS PO 06/21/20 21:00 08/01/20 20:22 Calcium/Vitamin D (Oscal D 500mg/ 200uts) 1 tab BID PO 06/21/20 21:00 08/01/20 20:21 Vitamin D (Vitamin D3) 50,000 unit WEEKLY PO 06/25/20 09:00 07/30/20 08:23 Clonazepam (KlonoPIN) 0.5 mg PRN BID PRN PO ANXIETY / AGITATION 06/21/20 16:30 08/01/20 20:30 Cyanocobalamin (Vitamin B-12) 1,000 mcg QMONTH IM 07/17/20 09:00 07/17/20 08:38 Diclofenac Sodium (Voltaren) 2 joesph QID TP 06/21/20 17:00 08/01/20 20:26 Docusate Sodium (Colace) 100 mg BID PO 06/21/20 21:00 08/01/20 20:22 Furosemide (Lasix) 20 mg DAILY16 PO 06/22/20 16:00 06/27/20 16:15 DC 06/26/20 15:52 Isosorbide Mononitrate (Imdur) 30 mg DAILY08 PO 06/22/20 08:00 08/01/20 08:19 Ketoconazole (Nizoral 2% Shampoo) 1 joesph PRN DAILY PRN TP DANDRUFF 06/21/20 16:30 Levothyroxine Sodium (Synthroid) 75 mcg DAILY06 PO 06/22/20 06:00 08/02/20 05:15 Metoprolol Tartrate (Lopressor) 12.5 mg BID PO 06/21/20 21:00 08/01/20 20:20 Pantoprazole Sodium (Protonix) 40 mg DAILY08 PO 06/22/20 08:00 08/01/20 08:20 Ropinirole HCl (Requip) 0.5 mg HS PO 06/21/20 21:00 08/01/20 20:21 Salsalate (Salsalate) 1,000 mg 2100 PO 06/21/20 21:00 08/01/20 20:27 Salsalate (Salsalate) 1,500 mg 0800 PO 06/22/20 08:00 08/01/20 08:20 Sennosides (Senna) 8.6 mg BID76 PO 06/21/20 18:00 06/23/20 05:00 DC 06/22/20 16:04 Tramadol HCl (Ultram) 50 mg PRN Q6HRS PRN PO MOD-SEV PAIN 06/21/20 16:30 07/22/20 09:03 Triamcinolone Acetonide (Kenalog) 1 joesph PRN Q12HR PRN TP ITCHING 06/21/20 16:30 Vitamin A/Vitamin D (Vitamin A & D Ointment) 1 joesph PRN Q1HR PRN TP DRY SKIN / SCALING 06/21/20 16:30 Multi-Ingred Cream/Lotion/Oil/ Oint (Hydrocerin) 1 joesph BID TP 06/21/20 21:00 08/01/20 20:26 Fluoxetine HCl (PROzac) 80 mg DAILY08 PO 06/22/20 08:00 07/08/20 18:05 DC 07/08/20 04:26 Non-Formulary Medication (Liraglutide (Saxenda)) 1.8 mg 0800 SQ 06/22/20 08:00 UNV Melatonin (Melatonin) 3 mg HS PO 06/21/20 21:00 08/01/20 20:22 Non-Formulary Medication (Olodaterol HCl (Striverdi Respimat)) 4 gm DAILY08 IH 06/22/20 08:00 UNV Potassium Chloride (Klor-Con) 10 meq TID PO 06/21/20 21:00 06/27/20 16:15 DC 06/27/20 13:12 Quetiapine Fumarate (SEROquel) 300 mg DAILY08 PO 06/22/20 08:00 08/01/20 08:18 Quetiapine Fumarate (SEROquel) 600 mg HS PO 06/21/20 21:00 08/01/20 20:20 Hydroxyzine HCl (Atarax) 25 mg TID PO 06/21/20 21:00 08/01/20 20:20 Albuterol Sulfate (Ventolin Hfa Inhaler) 2 puff PRN Q4HRS PRN INH SHORTNESS OF BREATH 06/21/20 17:15 Divalproex Sodium (Depakote Er) 500 mg QHS PO 06/21/20 21:00 06/24/20 17:35 DC 06/23/20 19:43 Divalproex Sodium (Depakote Er) 500 mg QHS PO 06/22/20 21:00 06/22/20 12:14 DC Sennosides (Senna) 8.6 mg BIDACBL PO 06/23/20 07:30 08/01/20 12:14 Divalproex Sodium (Depakote Er) 750 mg QHS PO 06/24/20 21:00 06/25/20 19:31 DC 06/24/20 21:05 Divalproex Sodium (Depakote Er) 500 mg QHS PO 06/25/20 21:00 08/01/20 20:22 Divalproex Sodium (Depakote Er) 250 mg QHS PO 06/25/20 21:00 08/01/20 20:21 Furosemide (Lasix) 60 mg 1X ONCE PO 06/26/20 21:15 06/26/20 22:10 DC 06/27/20 05:51 Furosemide (Lasix) 40 mg DAILY PO 06/27/20 16:15 08/01/20 08:19 Potassium Chloride (Klor-Con) 20 meq BID PO 06/27/20 21:00 08/01/20 20:21 Fluoxetine HCl (PROzac) 60 mg DAILY08 PO 07/09/20 08:00 07/10/20 20:09 DC 07/10/20 09:09 Bupropion HCl (Wellbutrin Xl) 150 mg DAILY PO 07/09/20 09:00 07/10/20 20:09 DC 07/10/20 09:10 Olanzapine (ZyPREXA ZYDIS) 2.5 mg PRN Q2HR PRN PO PSYCHOSIS 07/10/20 20:00 07/14/20 22:10 Fluoxetine HCl (PROzac) 80 mg DAILY PO 07/11/20 08:00 08/01/20 08:18 Iohexol (Omnipaque 350 Mg/ml) 100 ml 1X ONCE IV 07/27/20 08:30 07/27/20 08:31 DC 07/27/20 08:43 Amoxicillin/ Clavulanate Potassium (Augmentin 875/ 125mg) 1 tab BID PO 07/27/20 21:00 08/05/20 22:00 08/01/20 20:19 Lactobacillus Rhamnosus (Culturelle) 1 cap BID PO 07/27/20 21:00 08/01/20 20:21 I have reviewed the current psychotropics carefully including drug interactions. Risk benefit ratio favors no change other than as noted in my dictated progress note. Diagnosis: Problems: (1) Schizoaffective disorder, bipolar type (2) Impulse control disorder, unspecified (3) Anxiety disorder, unspecified (4) Bipolar 1 disorder, mixed, partial remission MICHAEL CLARK MD August 02, 2020 06:53
[2020-08-02] MEDS: NON FORMULARY ITEM (Olodaterol HCl (Striverdi Respimat) 4 GM) IH SCH (08:00)
[2020-08-02] MEDS: LIRAGLUTIDE 1.8 MG SQ SCH (08:00)
[2020-08-02] MEDS: SALSALATE 500 MG PO SCH ×2 (08:12→21:21)
[2020-08-02] MEDS: LACTOBACILLUS RHAMNOSUS GG 1 CAPSULE. PO SCH ×2 (08:13→21:20)
[2020-08-02] MEDS: SENNOSIDES 8.6 MG TABLET PO SCH ×2 (08:13→11:30)
[2020-08-02] MEDS: DICLOFENAC SODIUM 1% TOPICAL GEL 100GM TUBE. TP SCH ×4 (08:13→21:25)
[2020-08-02] MEDS: ARIPiprazole 15 MG TABLET PO SCH (08:13)
[2020-08-02] MEDS: METOPROLOL TART IMMED RELEASE 25 MG TABLET. PO SCH ×2 (08:15→21:18)
[2020-08-02] MEDS: QUEtiapine 100 MG TABLET. PO SCH ×2 (08:16→21:22)
[2020-08-02] MEDS: ISOSORBIDE MONONITRATE ER 30 MG TAB.ER.24H PO SCH (08:16)
[2020-08-02] MEDS: AMOXICILLIN/K CLAV 875/125MG TABLET. PO SCH ×2 (08:17→21:20)
[2020-08-02] MEDS: FLUoxetine HCL 20 MG CAPSULE PO SCH (08:17)
[2020-08-02] MEDS: DOCUSATE SODIUM 100 MG CAPSULE PO SCH ×2 (08:17→21:20)
[2020-08-02] MEDS: ASPIRIN ENTERIC COATED 81 MG TABLET.DR. PO SCH (08:17)
[2020-08-02] MEDS: CALCIUM CARB/VIT D3 500/200 TABLET PO SCH ×2 (08:17→21:19)
[2020-08-02] MEDS: PANTOPRAZOLE 40 MG TABLET. PO SCH (08:17)
[2020-08-02] MEDS: FUROSEMIDE 40 MG TABLET PO SCH (08:17)
[2020-08-02] MEDS: hydrOXYzine HCL 25 MG TABLET PO SCH ×3 (08:17→21:21)
[2020-08-02] MEDS: amLODIPine BESYLATE 5 MG TABLET PO SCH (08:18)
[2020-08-02] MEDS: POTASSIUM CHLORIDE 20 MEQ TABLET.ER. PO SCH ×2 (08:18→21:20)
[2020-08-02] MEDS: MINERAL OIL/PETROLATUM TOPICAL CREAM 113GM JAR. TP SCH ×2 (08:42→21:22)
[2020-08-02 15:53] VITALS: BP 152/68
--- NOTE | 2020-08-02 16:20 | TX PLAN ---
Interdisciplinary Tx Plan Admission Information Jun 21, 2020 at 13:15 Legal Status (on Admission): Voluntary DPOA/Guardian Name: Felix Moscoso Contact Other Contact Name: Emigdio Cantrell Other Contact Verified Code Status: Full Code Allergies: Coded Allergies: chlorpromazine (Verified Allergy, Unknown, 06/07/20) diphenhydramine (Verified Allergy, Unknown, 06/07/20) lisinopril (Verified Allergy, Unknown, 06/07/20) simvastatin (Verified Allergy, Unknown, 06/07/20) Diagnoses Primary Diagnosis: Schizoaffective D/O Reasons for Admission: Delusions, Other Problem in Patient's Words: NA Additional Admission Comments: Pt was re-admitted to [facility] on 06/21 after having a Thoracentesis and 24 hour observation on ICU. Pt is labile and mostly tearful. Previous admission stated pt is paranoid,having multiple times in her head causing an abrasion, anxious and making statements of "I just want to end this" Problems Active Problems: delusional labile mood anxious Inactive Problems: medication management Pt Strengths/Limitations Ability for [place]: Poor Cognitive Functioning/Ability: Fair Communication Skills/Ability: Fair Financial Resources: Fair Insight/Judgement: Poor Intellectual Ability: Fair Physical Health: Poor Social Skills: Fair Stability in Family: Fair Stability in School/Work: Poor Verbal Skills: Fair Discharge Criteria Discharge Criteria: No need for close observ., Adequate arrangements @DC, Improved behavior, Improved mood/thought Special Precautions Fall Risk: Moderate Initial D/C Plan Pt will need placement at discharge. Identified Discharge Needs: Referrals for higher level of care Currently Utilized Resources Currently Utilized Resources/P: [facility] : PCP, Psychiatrist, Counseling, placement manager Identified Problems/Hx/Goals Objectives/Short-Term Goals Short Term Goals: Dec. Anxiety/Panic, Dec. Hallucination/Delus, Dec. Outbursts, Dec. Symp. Depression, Medication Stabilization, Monitor Med Effects, Promote Coping Skill Short Term Goals in Patient's: I just need to get my Fluffy back Interventions/Frequency Staff Interventions/Frequency&: Psychiatrist to assess pt at least 3x per week for medication mgmt. Social Work to assess pt at least 2x per week to identify barriers to care and final discharge planning. Nursing to assess medication effects, behavior modification and completion of 15 minute checks daily. Encourage participation in group activities (if applicable) or 1:1 engagement based off activity dept goals. History Vocational History: Pt was not able to fully work as her psychiatric troubles prevented her from doing so. 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 [facility] Follow[facility] at the [facility] Treatment Plan Explained Patient/Roving Changer had this treatment plan explained to him/her as indicated by the signature below and has been given the opportunity to ask questions and make suggestions: Date: Patient/Roving Changer Signature: Status Update Update Pt is eating roughly 100% of meals and sleeping on average 5.5 hours per night. Pt reported to nursing last night she had a rough day; however, no reports from day shift were noted that pt had difficulty. Pt is medication compliant and withdrawn at times to her room. Pt has attended a few groups this week, one of them dealt with gardening and pt was very happy to help as she gardens some at home. Pt has been approved to placement at [facility] in [place], [place]; however, [facility] is waiting approval through the [facility] for pt to be transferred. [facility] will be able to follow up with pt appointments through the [facility] will continue to work on this with pt family and the [facility] to finalize discharge plans hopefully within the next week. FROY KAISER August 02, 2020 16:20
[2020-08-02] MEDS: DIVALPROEX ER 500 MG TAB.ER.24H PO SCH (21:19)
[2020-08-02] MEDS: DIVALPROEX ER 250 MG TAB.ER.24H. PO SCH (21:19)
[2020-08-02] MEDS: rOPINIRole 0.5 MG TABLET. PO SCH (21:19)
[2020-08-02] MEDS: MELATONIN 3 MG TABLET PO SCH (21:20)
[2020-08-02] MEDS: ATORVASTATIN CALCIUM 20 MG TABLET PO SCH (21:21)
[2020-08-02] MEDS: clonazePAM 0.5 MG TABLET PO PRN (21:28)
--- NOTE | 2020-08-02 22:05 | PDOC ---
Exam Note: [place] Note: Please also refer to the separate dictated note~for this date of service dictated separately.~Patient seen individually. Discussed the patient with Nursing staff reviewed the chart.~Reviewed interim history and current functioning. Reviewed vital signs,~Labs/ Radiology~and current medications noted below. Continue current treatment with the changes noted in the dictated addendum note Assessment: Vital Signs/I&O: Vital Signs Date Time Temp Pulse Resp B/P (MAP) Pulse Ox O2 Delivery O2 Flow Rate FiO2 08/02/20 21:18 58 152/68 08/02/20 15:53 97.8 22 93 08/02/20 06:22 Nasal Cannula 2.0 I & O 0 08/01/20 08/01/20 08/02/20 15:00 23:00 07:00 Intake Total 480 ml 720 ml 120 ml Balance 480 ml 720 ml 120 ml Current Medications: Meds: Current Medications Medications (Trade) Dose Ordered Sig/Indra Route PRN Reason Start Time Stop Time Status Last Admin Dose Admin Acetaminophen (Tylenol) 650 mg PRN Q6HRS PRN PO MILD PAIN / TEMP > 100.3'F 06/21/20 16:15 Multi-Ingredient Ointment (Analgesic [place]) 1 joesph PRN QID PRN TP MUSCLE PAIN 06/21/20 16:15 Al Hydroxide/Mg Hydroxide (Mylanta Plus Xs) 15 ml PRN AFTMEALHC PRN PO DYSPEPSIA 06/21/20 16:15 Magnesium Hydroxide (Milk Of Magnesia) 2,400 mg PRN QHS PRN PO CONSTIPATION 06/21/20 16:15 Acetaminophen (Tylenol) 500 mg PRN Q6HRS PRN PO pain or fever 06/21/20 16:30 UNV Albuterol Sulfate (Ventolin) 2.5 mg PRN Q4HRS PRN IH FOR ASTHMA 06/21/20 16:30 UNV Amlodipine Besylate (Norvasc) 5 mg DAILY PO 06/22/20 09:00 08/02/20 08:18 Aripiprazole (Abilify) 15 mg DAILY PO 06/22/20 09:00 08/02/20 08:13 Aspirin (Aspirin Enteric Coated) 81 mg DAILY PO 06/22/20 09:00 08/02/20 08:17 Atorvastatin Calcium (Lipitor) 20 mg QHS PO 06/21/20 21:00 08/02/20 21:21 Calcium/Vitamin D (Oscal D 500mg/ 200uts) 1 tab BID PO 06/21/20 21:00 08/02/20 21:19 Vitamin D (Vitamin D3) 50,000 unit WEEKLY PO 06/25/20 09:00 07/30/20 08:23 Clonazepam (KlonoPIN) 0.5 mg PRN BID PRN PO ANXIETY / AGITATION 06/21/20 16:30 08/02/20 21:28 Cyanocobalamin (Vitamin B-12) 1,000 mcg QMONTH IM 07/17/20 09:00 07/17/20 08:38 Diclofenac Sodium (Voltaren) 2 joesph QID TP 06/21/20 17:00 08/02/20 08:13 Docusate Sodium (Colace) 100 mg BID PO 06/21/20 21:00 08/02/20 21:20 Furosemide (Lasix) 20 mg DAILY16 PO 06/22/20 16:00 06/27/20 16:15 DC 06/26/20 15:52 Isosorbide Mononitrate (Imdur) 30 mg DAILY08 PO 06/22/20 08:00 08/02/20 08:16 Ketoconazole (Nizoral 2% Shampoo) 1 joesph PRN DAILY PRN TP DANDRUFF 06/21/20 16:30 Levothyroxine Sodium (Synthroid) 75 mcg DAILY06 PO 06/22/20 06:00 08/02/20 05:15 Metoprolol Tartrate (Lopressor) 12.5 mg BID PO 06/21/20 21:00 08/02/20 21:18 Pantoprazole Sodium (Protonix) 40 mg DAILY08 PO 06/22/20 08:00 08/02/20 08:17 Ropinirole HCl (Requip) 0.5 mg HS PO 06/21/20 21:00 08/02/20 21:19 Salsalate (Salsalate) 1,000 mg 2100 PO 06/21/20 21:00 08/02/20 21:21 Salsalate (Salsalate) 1,500 mg 0800 PO 06/22/20 08:00 08/02/20 08:12 Sennosides (Senna) 8.6 mg BID76 PO 06/21/20 18:00 06/23/20 05:00 DC 06/22/20 16:04 Tramadol HCl (Ultram) 50 mg PRN Q6HRS PRN PO MOD-SEV PAIN 06/21/20 16:30 07/22/20 09:03 Triamcinolone Acetonide (Kenalog) 1 joesph PRN Q12HR PRN TP ITCHING 06/21/20 16:30 Vitamin A/Vitamin D (Vitamin A & D Ointment) 1 joesph PRN Q1HR PRN TP DRY SKIN / SCALING 06/21/20 16:30 Multi-Ingred Cream/Lotion/Oil/ Oint (Hydrocerin) 1 joesph BID TP 06/21/20 21:00 08/02/20 21:22 Fluoxetine HCl (PROzac) 80 mg DAILY08 PO 06/22/20 08:00 07/08/20 18:05 DC 07/08/20 04:26 Non-Formulary Medication (Liraglutide (Saxenda)) 1.8 mg 0800 SQ 06/22/20 08:00 UNV Melatonin (Melatonin) 3 mg HS PO 06/21/20 21:00 08/02/20 21:20 Non-Formulary Medication (Olodaterol HCl (Striverdi Respimat)) 4 gm DAILY08 IH 06/22/20 08:00 UNV Potassium Chloride (Klor-Con) 10 meq TID PO 06/21/20 21:00 06/27/20 16:15 DC 06/27/20 13:12 Quetiapine Fumarate (SEROquel) 300 mg DAILY08 PO 06/22/20 08:00 08/02/20 08:16 Quetiapine Fumarate (SEROquel) 600 mg HS PO 06/21/20 21:00 08/02/20 21:22 Hydroxyzine HCl (Atarax) 25 mg TID PO 06/21/20 21:00 08/02/20 21:21 Albuterol Sulfate (Ventolin Hfa Inhaler) 2 puff PRN Q4HRS PRN INH SHORTNESS OF BREATH 06/21/20 17:15 Divalproex Sodium (Depakote Er) 500 mg QHS PO 06/21/20 21:00 06/24/20 17:35 DC 06/23/20 19:43 Divalproex Sodium (Depakote Er) 500 mg QHS PO 06/22/20 21:00 06/22/20 12:14 DC Sennosides (Senna) 8.6 mg BIDACBL PO 06/23/20 07:30 08/02/20 08:13 Divalproex Sodium (Depakote Er) 750 mg QHS PO 06/24/20 21:00 06/25/20 19:31 DC 06/24/20 21:05 Divalproex Sodium (Depakote Er) 500 mg QHS PO 06/25/20 21:00 08/02/20 21:19 Divalproex Sodium (Depakote Er) 250 mg QHS PO 06/25/20 21:00 08/02/20 21:19 Furosemide (Lasix) 60 mg 1X ONCE PO 06/26/20 21:15 06/26/20 22:10 DC 06/27/20 05:51 Furosemide (Lasix) 40 mg DAILY PO 06/27/20 16:15 08/02/20 08:17 Potassium Chloride (Klor-Con) 20 meq BID PO 06/27/20 21:00 08/02/20 21:20 Fluoxetine HCl (PROzac) 60 mg DAILY08 PO 07/09/20 08:00 07/10/20 20:09 DC 07/10/20 09:09 Bupropion HCl (Wellbutrin Xl) 150 mg DAILY PO 07/09/20 09:00 07/10/20 20:09 DC 07/10/20 09:10 Olanzapine (ZyPREXA ZYDIS) 2.5 mg PRN Q2HR PRN PO PSYCHOSIS 07/10/20 20:00 07/14/20 22:10 Fluoxetine HCl (PROzac) 80 mg DAILY PO 07/11/20 08:00 08/02/20 08:17 Iohexol (Omnipaque 350 Mg/ml) 100 ml 1X ONCE IV 07/27/20 08:30 07/27/20 08:31 DC 07/27/20 08:43 Amoxicillin/ Clavulanate Potassium (Augmentin 875/ 125mg) 1 tab BID PO 07/27/20 21:00 08/05/20 22:00 08/02/20 21:20 Lactobacillus Rhamnosus (Culturelle) 1 cap BID PO 07/27/20 21:00 08/02/20 21:20 I have reviewed the current psychotropics carefully including drug interactions. Risk benefit ratio favors no change other than as noted in my dictated progress note. Diagnosis: Problems: (1) Schizoaffective disorder, bipolar type (2) Impulse control disorder, unspecified (3) Anxiety disorder, unspecified (4) Bipolar 1 disorder, mixed, partial remission MICHAEL CLARK MD August 02, 2020 22:05
[2020-08-03] MEDS: LEVOTHYROXINE 75 MCG TABLET PO SCH (05:54)
[2020-08-03 06:15] VITALS: BP 130/82
[2020-08-03] MEDS: LIRAGLUTIDE 1.8 MG SQ SCH (08:00)
[2020-08-03] MEDS: NON FORMULARY ITEM (Olodaterol HCl (Striverdi Respimat) 4 GM) IH SCH (08:00)
[2020-08-03] MEDS: MINERAL OIL/PETROLATUM TOPICAL CREAM 113GM JAR. TP SCH ×2 (09:00→21:00)
[2020-08-03] MEDS: CALCIUM CARB/VIT D3 500/200 TABLET PO SCH ×2 (09:17→21:34)
[2020-08-03] MEDS: ASPIRIN ENTERIC COATED 81 MG TABLET.DR. PO SCH (09:17)
[2020-08-03] MEDS: FLUoxetine HCL 20 MG CAPSULE PO SCH (09:17)
[2020-08-03] MEDS: SENNOSIDES 8.6 MG TABLET PO SCH ×2 (09:17→12:56)
[2020-08-03] MEDS: ISOSORBIDE MONONITRATE ER 30 MG TAB.ER.24H PO SCH (09:17)
[2020-08-03] MEDS: hydrOXYzine HCL 25 MG TABLET PO SCH ×3 (09:18→21:37)
[2020-08-03] MEDS: PANTOPRAZOLE 40 MG TABLET. PO SCH (09:18)
[2020-08-03] MEDS: LACTOBACILLUS RHAMNOSUS GG 1 CAPSULE. PO SCH ×2 (09:18→21:33)
[2020-08-03] MEDS: POTASSIUM CHLORIDE 20 MEQ TABLET.ER. PO SCH ×2 (09:18→21:36)
[2020-08-03] MEDS: METOPROLOL TART IMMED RELEASE 25 MG TABLET. PO SCH ×2 (09:18→21:00)
[2020-08-03] MEDS: amLODIPine BESYLATE 5 MG TABLET PO SCH (09:19)
[2020-08-03] MEDS: QUEtiapine 100 MG TABLET. PO SCH ×2 (09:19→21:38)
[2020-08-03] MEDS: AMOXICILLIN/K CLAV 875/125MG TABLET. PO SCH ×2 (09:19→21:35)
[2020-08-03] MEDS: DOCUSATE SODIUM 100 MG CAPSULE PO SCH ×2 (09:19→21:35)
[2020-08-03] MEDS: FUROSEMIDE 40 MG TABLET PO SCH (09:19)
[2020-08-03] MEDS: ARIPiprazole 15 MG TABLET PO SCH (09:19)
[2020-08-03] MEDS: SALSALATE 500 MG PO SCH ×2 (09:20→21:00)
[2020-08-03] MEDS: DICLOFENAC SODIUM 1% TOPICAL GEL 100GM TUBE. TP SCH ×4 (09:21→21:00)
--- NOTE | 2020-08-03 10:27 | PDOC ---
Exam Note: [place] Note: This note is a late entry for 08/02/2020 covers elements not covered in my initial note. Subjective: The patient was reviewed in the morning of 08/02/2020 for a treatment team meeting with Ada Clifford, Barbra Lugo and Amanda (criminal justice social worker), Caity, activity therapy and Niehsa WOMACK, discussed and reviewed the chart. The patient slept 7-3/4 hours previous night. Appetite is 100%. Average 5-1/4 hours. Tentative discharge plan is for Thursday. She has been more interactive, cooperative, was gardening yesterday. Review of Systems: Ambulation impaired in wheelchair. No CV, , pulmonary, eye system symptoms on review. Mental Status Exam: The patient is reasonably oriented. Speech coherent has some latency. Abstraction fair. Computation impaired. Language function intact. Mood and affect somewhat withdrawn. Laboratory Data: Reviewed. Impression: Schizoaffective disorder, bipolar type, mixed with psychotic features in partial remission. Anxiety disorder unspecified. Impulse control disorder unspecified. Plan: Continue psychotropics from initial note. Defer placement options to social service staff. Assessment: Vital Signs/I&O: Vital Signs Date Time Temp Pulse Resp B/P (MAP) Pulse Ox O2 Delivery O2 Flow Rate FiO2 08/03/20 09:19 62 130/82 08/03/20 06:15 96.2 24 100 08/02/20 06:22 Nasal Cannula 2.0 I & O 08/02/20 08/02/20 08/03/20 15:00 23:00 07:00 Intake Total 360 ml 240 ml 120 ml Balance 360 ml 240 ml 120 ml Current Medications: Meds: Current Medications Medications (Trade) Dose Ordered Sig/Indra Route PRN Reason Start Time Stop Time Status Last Admin Dose Admin Acetaminophen (Tylenol) 650 mg PRN Q6HRS PRN PO MILD PAIN / TEMP > 100.3'F 06/21/20 16:15 Multi-Ingredient Ointment (Analgesic [place]) 1 joesph PRN QID PRN TP MUSCLE PAIN 06/21/20 16:15 Al Hydroxide/Mg Hydroxide (Mylanta Plus Xs) 15 ml PRN AFTMEALHC PRN PO DYSPEPSIA 06/21/20 16:15 Magnesium Hydroxide (Milk Of Magnesia) 2,400 mg PRN QHS PRN PO CONSTIPATION 06/21/20 16:15 Acetaminophen (Tylenol) 500 mg PRN Q6HRS PRN PO pain or fever 06/21/20 16:30 UNV Albuterol Sulfate (Ventolin) 2.5 mg PRN Q4HRS PRN IH FOR ASTHMA 06/21/20 16:30 UNV Amlodipine Besylate (Norvasc) 5 mg DAILY PO 06/22/20 09:00 08/03/20 09:19 Aripiprazole (Abilify) 15 mg DAILY PO 06/22/20 09:00 08/03/20 09:19 Aspirin (Aspirin Enteric Coated) 81 mg DAILY PO 06/22/20 09:00 08/03/20 09:17 Atorvastatin Calcium (Lipitor) 20 mg QHS PO 06/21/20 21:00 08/02/20 21:21 Calcium/Vitamin D (Oscal D 500mg/ 200uts) 1 tab BID PO 06/21/20 21:00 08/03/20 09:17 Vitamin D (Vitamin D3) 50,000 unit WEEKLY PO 06/25/20 09:00 07/30/20 08:23 Clonazepam (KlonoPIN) 0.5 mg PRN BID PRN PO ANXIETY / AGITATION 06/21/20 16:30 08/02/20 21:28 Cyanocobalamin (Vitamin B-12) 1,000 mcg QMONTH IM 07/17/20 09:00 07/17/20 08:38 Diclofenac Sodium (Voltaren) 2 joesph QID TP 06/21/20 17:00 08/03/20 09:21 Docusate Sodium (Colace) 100 mg BID PO 06/21/20 21:00 08/03/20 09:19 Furosemide (Lasix) 20 mg DAILY16 PO 06/22/20 16:00 06/27/20 16:15 DC 06/26/20 15:52 Isosorbide Mononitrate (Imdur) 30 mg DAILY08 PO 06/22/20 08:00 08/03/20 09:17 Ketoconazole (Nizoral 2% Shampoo) 1 joesph PRN DAILY PRN TP DANDRUFF 06/21/20 16:30 Levothyroxine Sodium (Synthroid) 75 mcg DAILY06 PO 06/22/20 06:00 08/03/20 05:54 Metoprolol Tartrate (Lopressor) 12.5 mg BID PO 06/21/20 21:00 08/03/20 09:18 Pantoprazole Sodium (Protonix) 40 mg DAILY08 PO 06/22/20 08:00 08/03/20 09:18 Ropinirole HCl (Requip) 0.5 mg HS PO 06/21/20 21:00 08/02/20 21:19 Salsalate (Salsalate) 1,000 mg 2100 PO 06/21/20 21:00 08/02/20 21:21 Salsalate (Salsalate) 1,500 mg 0800 PO 06/22/20 08:00 08/03/20 09:20 Sennosides (Senna) 8.6 mg BID76 PO 06/21/20 18:00 06/23/20 05:00 DC 06/22/20 16:04 Tramadol HCl (Ultram) 50 mg PRN Q6HRS PRN PO MOD-SEV PAIN 06/21/20 16:30 07/22/20 09:03 Triamcinolone Acetonide (Kenalog) 1 joesph PRN Q12HR PRN TP ITCHING 06/21/20 16:30 Vitamin A/Vitamin D (Vitamin A & D Ointment) 1 joesph PRN Q1HR PRN TP DRY SKIN / SCALING 06/21/20 16:30 Multi-Ingred Cream/Lotion/Oil/ Oint (Hydrocerin) 1 joesph BID TP 06/21/20 21:00 08/03/20 09:00 Fluoxetine HCl (PROzac) 80 mg DAILY08 PO 06/22/20 08:00 07/08/20 18:05 DC 07/08/20 04:26 Non-Formulary Medication (Liraglutide (Saxenda)) 1.8 mg 0800 SQ 06/22/20 08:00 UNV Melatonin (Melatonin) 3 mg HS PO 06/21/20 21:00 08/02/20 21:20 Non-Formulary Medication (Olodaterol HCl (Striverdi Respimat)) 4 gm DAILY08 IH 06/22/20 08:00 UNV Potassium Chloride (Klor-Con) 10 meq TID PO 06/21/20 21:00 06/27/20 16:15 DC 06/27/20 13:12 Quetiapine Fumarate (SEROquel) 300 mg DAILY08 PO 06/22/20 08:00 08/03/20 09:19 Quetiapine Fumarate (SEROquel) 600 mg HS PO 06/21/20 21:00 08/02/20 21:22 Hydroxyzine HCl (Atarax) 25 mg TID PO 06/21/20 21:00 08/03/20 09:18 Albuterol Sulfate (Ventolin Hfa Inhaler) 2 puff PRN Q4HRS PRN INH SHORTNESS OF BREATH 06/21/20 17:15 Divalproex Sodium (Depakote Er) 500 mg QHS PO 06/21/20 21:00 06/24/20 17:35 DC 06/23/20 19:43 Divalproex Sodium (Depakote Er) 500 mg QHS PO 06/22/20 21:00 06/22/20 12:14 DC Sennosides (Senna) 8.6 mg BIDACBL PO 06/23/20 07:30 08/03/20 09:17 Divalproex Sodium (Depakote Er) 750 mg QHS PO 06/24/20 21:00 06/25/20 19:31 DC 06/24/20 21:05 Divalproex Sodium (Depakote Er) 500 mg QHS PO 06/25/20 21:00 08/02/20 21:19 Divalproex Sodium (Depakote Er) 250 mg QHS PO 06/25/20 21:00 08/02/20 21:19 Furosemide (Lasix) 60 mg 1X ONCE PO 06/26/20 21:15 06/26/20 22:10 DC 06/27/20 05:51 Furosemide (Lasix) 40 mg DAILY PO 06/27/20 16:15 08/03/20 09:19 Potassium Chloride (Klor-Con) 20 meq BID PO 06/27/20 21:00 08/03/20 09:18 Fluoxetine HCl (PROzac) 60 mg DAILY08 PO 07/09/20 08:00 07/10/20 20:09 DC 07/10/20 09:09 Bupropion HCl (Wellbutrin Xl) 150 mg DAILY PO 07/09/20 09:00 07/10/20 20:09 DC 07/10/20 09:10 Olanzapine (ZyPREXA ZYDIS) 2.5 mg PRN Q2HR PRN PO PSYCHOSIS 07/10/20 20:00 07/14/20 22:10 Fluoxetine HCl (PROzac) 80 mg DAILY PO 07/11/20 08:00 08/03/20 09:17 Iohexol (Omnipaque 350 Mg/ml) 100 ml 1X ONCE IV 07/27/20 08:30 07/27/20 08:31 DC 07/27/20 08:43 Amoxicillin/ Clavulanate Potassium (Augmentin 875/ 125mg) 1 tab BID PO 07/27/20 21:00 08/05/20 22:00 08/03/20 09:19 Lactobacillus Rhamnosus (Culturelle) 1 cap BID PO 07/27/20 21:00 08/03/20 09:18 I have reviewed the current psychotropics carefully including drug interactions. Risk benefit ratio favors no change other than as noted in my dictated progress note. Diagnosis: Problems: (1) Schizoaffective disorder, bipolar type (2) Impulse control disorder, unspecified (3) Anxiety disorder, unspecified (4) Bipolar 1 disorder, mixed, partial remission MICHAEL CLARK MD August 03, 2020 10:27
[2020-08-03 13:16] VITALS: BP 132/76
[2020-08-03 16:07] VITALS: BP 105/67
[2020-08-03] MEDS: DIVALPROEX ER 250 MG TAB.ER.24H. PO SCH (21:33)
[2020-08-03] MEDS: ATORVASTATIN CALCIUM 20 MG TABLET PO SCH (21:33)
[2020-08-03] MEDS: rOPINIRole 0.5 MG TABLET. PO SCH (21:34)
[2020-08-03] MEDS: MELATONIN 3 MG TABLET PO SCH (21:35)
[2020-08-03] MEDS: DIVALPROEX ER 500 MG TAB.ER.24H PO SCH (21:35)
[2020-08-03] MEDS: clonazePAM 0.5 MG TABLET PO PRN (21:36)
--- NOTE | 2020-08-03 21:53 | PDOC ---
Exam Note: [place] Note: Please also refer to the separate dictated note~for this date of service dictated separately.~Patient seen individually. Discussed the patient with Nursing staff reviewed the chart.~Reviewed interim history and current functioning. Reviewed vital signs,~Labs/ Radiology~and current medications noted below. Continue current treatment with the changes noted in the dictated addendum note Assessment: Vital Signs/I&O: Vital Signs Date Time Temp Pulse Resp B/P (MAP) Pulse Ox O2 Delivery O2 Flow Rate FiO2 08/03/20 21:00 58 105/67 08/03/20 16:07 98.2 18 92 Room Air 08/03/20 13:16 2.0 I & O 08/02/20 08/02/20 08/03/20 15:00 23:00 07:00 Intake Total 360 ml 240 ml 120 ml Balance 360 ml 240 ml 120 ml Current Medications: Meds: Current Medications Medications (Trade) Dose Ordered Sig/Indra Route PRN Reason Start Time Stop Time Status Last Admin Dose Admin Acetaminophen (Tylenol) 650 mg PRN Q6HRS PRN PO MILD PAIN / TEMP > 100.3'F 06/21/20 16:15 Multi-Ingredient Ointment (Analgesic [place]) 1 joesph PRN QID PRN TP MUSCLE PAIN 06/21/20 16:15 Al Hydroxide/Mg Hydroxide (Mylanta Plus Xs) 15 ml PRN AFTMEALHC PRN PO DYSPEPSIA 06/21/20 16:15 Magnesium Hydroxide (Milk Of Magnesia) 2,400 mg PRN QHS PRN PO CONSTIPATION 06/21/20 16:15 Acetaminophen (Tylenol) 500 mg PRN Q6HRS PRN PO pain or fever 06/21/20 16:30 UNV Albuterol Sulfate (Ventolin) 2.5 mg PRN Q4HRS PRN IH FOR ASTHMA 06/21/20 16:30 UNV Amlodipine Besylate (Norvasc) 5 mg DAILY PO 06/22/20 09:00 08/03/20 09:19 Aripiprazole (Abilify) 15 mg DAILY PO 06/22/20 09:00 08/03/20 09:19 Aspirin (Aspirin Enteric Coated) 81 mg DAILY PO 06/22/20 09:00 08/03/20 09:17 Atorvastatin Calcium (Lipitor) 20 mg QHS PO 06/21/20 21:00 08/03/20 21:33 Calcium/Vitamin D (Oscal D 500mg/ 200uts) 1 tab BID PO 06/21/20 21:00 08/03/20 21:34 Vitamin D (Vitamin D3) 50,000 unit WEEKLY PO 06/25/20 09:00 07/30/20 08:23 Clonazepam (KlonoPIN) 0.5 mg PRN BID PRN PO ANXIETY / AGITATION 06/21/20 16:30 08/03/20 21:36 Cyanocobalamin (Vitamin B-12) 1,000 mcg QMONTH IM 07/17/20 09:00 07/17/20 08:38 Diclofenac Sodium (Voltaren) 2 joesph QID TP 06/21/20 17:00 08/03/20 21:00 Docusate Sodium (Colace) 100 mg BID PO 06/21/20 21:00 08/03/20 21:35 Furosemide (Lasix) 20 mg DAILY16 PO 06/22/20 16:00 06/27/20 16:15 DC 06/26/20 15:52 Isosorbide Mononitrate (Imdur) 30 mg DAILY08 PO 06/22/20 08:00 08/03/20 09:17 Ketoconazole (Nizoral 2% Shampoo) 1 joesph PRN DAILY PRN TP DANDRUFF 06/21/20 16:30 Levothyroxine Sodium (Synthroid) 75 mcg DAILY06 PO 06/22/20 06:00 08/03/20 05:54 Metoprolol Tartrate (Lopressor) 12.5 mg BID PO 06/21/20 21:00 08/03/20 09:18 Pantoprazole Sodium (Protonix) 40 mg DAILY08 PO 06/22/20 08:00 08/03/20 09:18 Ropinirole HCl (Requip) 0.5 mg HS PO 06/21/20 21:00 08/03/20 21:34 Salsalate (Salsalate) 1,000 mg 2100 PO 06/21/20 21:00 08/02/20 21:21 Salsalate (Salsalate) 1,500 mg 0800 PO 06/22/20 08:00 08/03/20 09:20 Sennosides (Senna) 8.6 mg BID76 PO 06/21/20 18:00 06/23/20 05:00 DC 06/22/20 16:04 Tramadol HCl (Ultram) 50 mg PRN Q6HRS PRN PO MOD-SEV PAIN 06/21/20 16:30 07/22/20 09:03 Triamcinolone Acetonide (Kenalog) 1 joesph PRN Q12HR PRN TP ITCHING 06/21/20 16:30 Vitamin A/Vitamin D (Vitamin A & D Ointment) 1 joesph PRN Q1HR PRN TP DRY SKIN / SCALING 06/21/20 16:30 Multi-Ingred Cream/Lotion/Oil/ Oint (Hydrocerin) 1 joesph BID TP 06/21/20 21:00 08/03/20 21:00 Fluoxetine HCl (PROzac) 80 mg DAILY08 PO 06/22/20 08:00 07/08/20 18:05 DC 07/08/20 04:26 Non-Formulary Medication (Liraglutide (Saxenda)) 1.8 mg 0800 SQ 06/22/20 08:00 UNV Melatonin (Melatonin) 3 mg HS PO 06/21/20 21:00 08/03/20 21:35 Non-Formulary Medication (Olodaterol HCl (Striverdi Respimat)) 4 gm DAILY08 IH 06/22/20 08:00 UNV Potassium Chloride (Klor-Con) 10 meq TID PO 06/21/20 21:00 06/27/20 16:15 DC 06/27/20 13:12 Quetiapine Fumarate (SEROquel) 300 mg DAILY08 PO 06/22/20 08:00 08/03/20 09:19 Quetiapine Fumarate (SEROquel) 600 mg HS PO 06/21/20 21:00 08/03/20 21:38 Hydroxyzine HCl (Atarax) 25 mg TID PO 06/21/20 21:00 08/03/20 21:37 Albuterol Sulfate (Ventolin Hfa Inhaler) 2 puff PRN Q4HRS PRN INH SHORTNESS OF BREATH 06/21/20 17:15 Divalproex Sodium (Depakote Er) 500 mg QHS PO 06/21/20 21:00 06/24/20 17:35 DC 06/23/20 19:43 Divalproex Sodium (Depakote Er) 500 mg QHS PO 06/22/20 21:00 06/22/20 12:14 DC Sennosides (Senna) 8.6 mg BIDACBL PO 06/23/20 07:30 08/03/20 12:56 Divalproex Sodium (Depakote Er) 750 mg QHS PO 06/24/20 21:00 06/25/20 19:31 DC 06/24/20 21:05 Divalproex Sodium (Depakote Er) 500 mg QHS PO 06/25/20 21:00 08/03/20 21:35 Divalproex Sodium (Depakote Er) 250 mg QHS PO 06/25/20 21:00 08/03/20 21:33 Furosemide (Lasix) 60 mg 1X ONCE PO 06/26/20 21:15 06/26/20 22:10 DC 06/27/20 05:51 Furosemide (Lasix) 40 mg DAILY PO 06/27/20 16:15 08/03/20 09:19 Potassium Chloride (Klor-Con) 20 meq BID PO 06/27/20 21:00 08/03/20 21:36 Fluoxetine HCl (PROzac) 60 mg DAILY08 PO 07/09/20 08:00 07/10/20 20:09 DC 07/10/20 09:09 Bupropion HCl (Wellbutrin Xl) 150 mg DAILY PO 07/09/20 09:00 07/10/20 20:09 DC 07/10/20 09:10 Olanzapine (ZyPREXA ZYDIS) 2.5 mg PRN Q2HR PRN PO PSYCHOSIS 07/10/20 20:00 07/14/20 22:10 Fluoxetine HCl (PROzac) 80 mg DAILY PO 07/11/20 08:00 08/03/20 09:17 Iohexol (Omnipaque 350 Mg/ml) 100 ml 1X ONCE IV 07/27/20 08:30 07/27/20 08:31 DC 07/27/20 08:43 Amoxicillin/ Clavulanate Potassium (Augmentin 875/ 125mg) 1 tab BID PO 07/27/20 21:00 08/05/20 22:00 08/03/20 21:35 Lactobacillus Rhamnosus (Culturelle) 1 cap BID PO 07/27/20 21:00 08/03/20 21:33 I have reviewed the current psychotropics carefully including drug interactions. Risk benefit ratio favors no change other than as noted in my dictated progress note. Diagnosis: Problems: (1) Schizoaffective disorder, bipolar type (2) Impulse control disorder, unspecified (3) Anxiety disorder, unspecified (4) Bipolar 1 disorder, mixed, partial remission MICHAEL CLARK MD August 03, 2020 21:53
[2020-08-04] MEDS: LEVOTHYROXINE 75 MCG TABLET PO SCH (05:49)
[2020-08-04 06:14] VITALS: BP 119/71
[2020-08-04] MEDS: NON FORMULARY ITEM (Olodaterol HCl (Striverdi Respimat) 4 GM) IH SCH (08:00)
[2020-08-04] MEDS: LIRAGLUTIDE 1.8 MG SQ SCH (08:00)
[2020-08-04] MEDS: SENNOSIDES 8.6 MG TABLET PO SCH ×2 (08:19→13:47)
[2020-08-04] MEDS: CALCIUM CARB/VIT D3 500/200 TABLET PO SCH ×2 (08:20→21:55)
[2020-08-04] MEDS: QUEtiapine 100 MG TABLET. PO SCH ×2 (08:20→21:57)
[2020-08-04] MEDS: SALSALATE 500 MG PO SCH ×2 (08:20→21:55)
[2020-08-04] MEDS: LACTOBACILLUS RHAMNOSUS GG 1 CAPSULE. PO SCH ×2 (08:21→21:56)
[2020-08-04] MEDS: ISOSORBIDE MONONITRATE ER 30 MG TAB.ER.24H PO SCH (08:21)
[2020-08-04] MEDS: FLUoxetine HCL 20 MG CAPSULE PO SCH (08:22)
[2020-08-04] MEDS: PANTOPRAZOLE 40 MG TABLET. PO SCH (08:22)
[2020-08-04] MEDS: ASPIRIN ENTERIC COATED 81 MG TABLET.DR. PO SCH (08:22)
[2020-08-04] MEDS: POTASSIUM CHLORIDE 20 MEQ TABLET.ER. PO SCH ×2 (08:22→21:56)
[2020-08-04] MEDS: DOCUSATE SODIUM 100 MG CAPSULE PO SCH ×2 (08:23→21:55)
[2020-08-04] MEDS: FUROSEMIDE 40 MG TABLET PO SCH (08:23)
[2020-08-04] MEDS: AMOXICILLIN/K CLAV 875/125MG TABLET. PO SCH ×2 (08:23→21:55)
[2020-08-04] MEDS: ARIPiprazole 15 MG TABLET PO SCH (08:23)
[2020-08-04] MEDS: amLODIPine BESYLATE 5 MG TABLET PO SCH (08:23)
[2020-08-04] MEDS: hydrOXYzine HCL 25 MG TABLET PO SCH ×3 (08:24→21:55)
[2020-08-04] MEDS: METOPROLOL TART IMMED RELEASE 25 MG TABLET. PO SCH ×2 (08:25→21:56)
[2020-08-04] MEDS: DICLOFENAC SODIUM 1% TOPICAL GEL 100GM TUBE. TP SCH ×4 (08:32→21:58)
[2020-08-04] MEDS: MINERAL OIL/PETROLATUM TOPICAL CREAM 113GM JAR. TP SCH ×2 (08:33→21:57)
[2020-08-04 15:52] VITALS: BP 135/53
[2020-08-04] MEDS: DIVALPROEX ER 500 MG TAB.ER.24H PO SCH (21:54)
[2020-08-04] MEDS: DIVALPROEX ER 250 MG TAB.ER.24H. PO SCH (21:54)
[2020-08-04] MEDS: ATORVASTATIN CALCIUM 20 MG TABLET PO SCH (21:55)
[2020-08-04] MEDS: MELATONIN 3 MG TABLET PO SCH (21:55)
[2020-08-04] MEDS: rOPINIRole 0.5 MG TABLET. PO SCH (21:56)
--- NOTE | 2020-08-04 22:19 | PDOC ---
Exam Note: [place] Note: Please also refer to the separate dictated note~for this date of service dictated separately.~Patient seen individually. Discussed the patient with Nursing staff reviewed the chart.~Reviewed interim history and current functioning. Reviewed vital signs,~Labs/ Radiology~and current medications noted below. Continue current treatment with the changes noted in the dictated addendum note Assessment: Vital Signs/I&O: Vital Signs Date Time Temp Pulse Resp B/P (MAP) Pulse Ox O2 Delivery O2 Flow Rate FiO2 08/04/20 21:56 57 135/53 08/04/20 15:52 97.7 18 91 08/04/20 06:14 Nasal Cannula 2.0 I & O 0 08/03/20 08/03/20 08/04/20 15:00 23:00 07:00 Intake Total 480 ml 240 ml Balance 480 ml 240 ml Current Medications: Meds: Current Medications Medications (Trade) Dose Ordered Sig/Indra Route PRN Reason Start Time Stop Time Status Last Admin Dose Admin Acetaminophen (Tylenol) 650 mg PRN Q6HRS PRN PO MILD PAIN / TEMP > 100.3'F 06/21/20 16:15 Multi-Ingredient Ointment (Analgesic [place]) 1 joesph PRN QID PRN TP MUSCLE PAIN 06/21/20 16:15 Al Hydroxide/Mg Hydroxide (Mylanta Plus Xs) 15 ml PRN AFTMEALHC PRN PO DYSPEPSIA 06/21/20 16:15 Magnesium Hydroxide (Milk Of Magnesia) 2,400 mg PRN QHS PRN PO CONSTIPATION 06/21/20 16:15 Acetaminophen (Tylenol) 500 mg PRN Q6HRS PRN PO pain or fever 06/21/20 16:30 UNV Albuterol Sulfate (Ventolin) 2.5 mg PRN Q4HRS PRN IH FOR ASTHMA 06/21/20 16:30 UNV Amlodipine Besylate (Norvasc) 5 mg DAILY PO 06/22/20 09:00 08/04/20 08:23 Aripiprazole (Abilify) 15 mg DAILY PO 06/22/20 09:00 08/04/20 08:23 Aspirin (Aspirin Enteric Coated) 81 mg DAILY PO 06/22/20 09:00 08/04/20 08:22 Atorvastatin Calcium (Lipitor) 20 mg QHS PO 06/21/20 21:00 08/04/20 21:55 Calcium/Vitamin D (Oscal D 500mg/ 200uts) 1 tab BID PO 06/21/20 21:00 08/04/20 21:55 Vitamin D (Vitamin D3) 50,000 unit WEEKLY PO 06/25/20 09:00 07/30/20 08:23 Clonazepam (KlonoPIN) 0.5 mg PRN BID PRN PO ANXIETY / AGITATION 06/21/20 16:30 08/03/20 21:36 Cyanocobalamin (Vitamin B-12) 1,000 mcg QMONTH IM 07/17/20 09:00 07/17/20 08:38 Diclofenac Sodium (Voltaren) 2 joesph QID TP 06/21/20 17:00 08/03/20 21:00 Docusate Sodium (Colace) 100 mg BID PO 06/21/20 21:00 08/04/20 21:55 Furosemide (Lasix) 20 mg DAILY16 PO 06/22/20 16:00 06/27/20 16:15 DC 06/26/20 15:52 Isosorbide Mononitrate (Imdur) 30 mg DAILY08 PO 06/22/20 08:00 08/04/20 08:21 Ketoconazole (Nizoral 2% Shampoo) 1 joesph PRN DAILY PRN TP DANDRUFF 06/21/20 16:30 Levothyroxine Sodium (Synthroid) 75 mcg DAILY06 PO 06/22/20 06:00 08/04/20 05:49 Metoprolol Tartrate (Lopressor) 12.5 mg BID PO 06/21/20 21:00 08/04/20 08:25 Pantoprazole Sodium (Protonix) 40 mg DAILY08 PO 06/22/20 08:00 08/04/20 08:22 Ropinirole HCl (Requip) 0.5 mg HS PO 06/21/20 21:00 08/04/20 21:56 Salsalate (Salsalate) 1,000 mg 2100 PO 06/21/20 21:00 08/04/20 21:55 Salsalate (Salsalate) 1,500 mg 0800 PO 06/22/20 08:00 08/04/20 08:20 Sennosides (Senna) 8.6 mg BID76 PO 06/21/20 18:00 06/23/20 05:00 DC 06/22/20 16:04 Tramadol HCl (Ultram) 50 mg PRN Q6HRS PRN PO MOD-SEV PAIN 06/21/20 16:30 07/22/20 09:03 Triamcinolone Acetonide (Kenalog) 1 joesph PRN Q12HR PRN TP ITCHING 06/21/20 16:30 Vitamin A/Vitamin D (Vitamin A & D Ointment) 1 joesph PRN Q1HR PRN TP DRY SKIN / SCALING 06/21/20 16:30 Multi-Ingred Cream/Lotion/Oil/ Oint (Hydrocerin) 1 joesph BID TP 06/21/20 21:00 08/04/20 21:57 Fluoxetine HCl (PROzac) 80 mg DAILY08 PO 06/22/20 08:00 07/08/20 18:05 DC 07/08/20 04:26 Non-Formulary Medication (Liraglutide (Saxenda)) 1.8 mg 0800 SQ 06/22/20 08:00 UNV Melatonin (Melatonin) 3 mg HS PO 06/21/20 21:00 08/04/20 21:55 Non-Formulary Medication (Olodaterol HCl (Striverdi Respimat)) 4 gm DAILY08 IH 06/22/20 08:00 UNV Potassium Chloride (Klor-Con) 10 meq TID PO 06/21/20 21:00 06/27/20 16:15 DC 06/27/20 13:12 Quetiapine Fumarate (SEROquel) 300 mg DAILY08 PO 06/22/20 08:00 08/04/20 08:20 Quetiapine Fumarate (SEROquel) 600 mg HS PO 06/21/20 21:00 08/04/20 21:57 Hydroxyzine HCl (Atarax) 25 mg TID PO 06/21/20 21:00 08/04/20 21:55 Albuterol Sulfate (Ventolin Hfa Inhaler) 2 puff PRN Q4HRS PRN INH SHORTNESS OF BREATH 06/21/20 17:15 Divalproex Sodium (Depakote Er) 500 mg QHS PO 06/21/20 21:00 06/24/20 17:35 DC 06/23/20 19:43 Divalproex Sodium (Depakote Er) 500 mg QHS PO 06/22/20 21:00 06/22/20 12:14 DC Sennosides (Senna) 8.6 mg BIDACBL PO 06/23/20 07:30 08/04/20 13:47 Divalproex Sodium (Depakote Er) 750 mg QHS PO 06/24/20 21:00 06/25/20 19:31 DC 06/24/20 21:05 Divalproex Sodium (Depakote Er) 500 mg QHS PO 06/25/20 21:00 08/04/20 21:54 Divalproex Sodium (Depakote Er) 250 mg QHS PO 06/25/20 21:00 08/04/20 21:54 Furosemide (Lasix) 60 mg 1X ONCE PO 06/26/20 21:15 06/26/20 22:10 DC 06/27/20 05:51 Furosemide (Lasix) 40 mg DAILY PO 06/27/20 16:15 08/04/20 08:23 Potassium Chloride (Klor-Con) 20 meq BID PO 06/27/20 21:00 08/04/20 21:56 Fluoxetine HCl (PROzac) 60 mg DAILY08 PO 07/09/20 08:00 07/10/20 20:09 DC 07/10/20 09:09 Bupropion HCl (Wellbutrin Xl) 150 mg DAILY PO 07/09/20 09:00 07/10/20 20:09 DC 07/10/20 09:10 Olanzapine (ZyPREXA ZYDIS) 2.5 mg PRN Q2HR PRN PO PSYCHOSIS 07/10/20 20:00 07/14/20 22:10 Fluoxetine HCl (PROzac) 80 mg DAILY PO 07/11/20 08:00 08/04/20 08:22 Iohexol (Omnipaque 350 Mg/ml) 100 ml 1X ONCE IV 07/27/20 08:30 07/27/20 08:31 DC 07/27/20 08:43 Amoxicillin/ Clavulanate Potassium (Augmentin 875/ 125mg) 1 tab BID PO 07/27/20 21:00 08/05/20 22:00 08/04/20 21:55 Lactobacillus Rhamnosus (Culturelle) 1 cap BID PO 07/27/20 21:00 08/04/20 21:56 I have reviewed the current psychotropics carefully including drug interactions. Risk benefit ratio favors no change other than as noted in my dictated progress note. Diagnosis: Problems: (1) Schizoaffective disorder, bipolar type (2) Impulse control disorder, unspecified (3) Anxiety disorder, unspecified (4) Bipolar 1 disorder, mixed, partial remission MICHAEL CLARK MD August 04, 2020 22:19
[2020-08-05 05:36] VITALS: BP 108/69
[2020-08-05] MEDS: LEVOTHYROXINE 75 MCG TABLET PO SCH (06:18)
[2020-08-05] MEDS: NON FORMULARY ITEM (Olodaterol HCl (Striverdi Respimat) 4 GM) IH SCH (08:00)
[2020-08-05] MEDS: LIRAGLUTIDE 1.8 MG SQ SCH (08:00)
[2020-08-05] MEDS: DICLOFENAC SODIUM 1% TOPICAL GEL 100GM TUBE. TP SCH ×4 (09:00→21:00)
[2020-08-05] MEDS: MINERAL OIL/PETROLATUM TOPICAL CREAM 113GM JAR. TP SCH ×2 (09:00→21:00)
--- NOTE | 2020-08-05 09:03 | PDOC ---
Exam Note: [place] Note: This note is a late entry for 08/03/2020 covers elements not covered in my initial note. Subjective: The patient was seen individually in the evening of 08/03/2020 with Juan WOMACK, discussed and reviewed the chart. The patient slept 6-1/4 hours previous night. She has been somewhat withdrawn, spends much time in her room, depressed. Reportedly her placement has accepted her and discharge plan in the next couple of days. She did have an unwitnessed fall. No injury noted. Review of Systems: Ambulation impaired in wheelchair. No CV, , pulmonary, eye system symptoms on review. Mental Status Exam: The patient is reasonably oriented. Speech coherent has some latency. Abstraction fair. Computation impaired. Language function intact. Mood and affect somewhat withdrawn. Laboratory Data: Reviewed. Impression: Schizoaffective disorder, bipolar type, mixed with psychotic features in partial remission. Anxiety disorder unspecified. Impulse control disorder unspecified. Plan: Continue psychotropics from initial note. Assessment: Vital Signs/I&O: Vital Signs Date Time Temp Pulse Resp B/P (MAP) Pulse Ox O2 Delivery O2 Flow Rate FiO2 08/05/20 05:36 96.6 80 20 108/69 (82) 93 08/04/20 06:14 Nasal Cannula 2.0 I & O 0 08/04/20 08/04/20 08/05/20 15:00 23:00 07:00 Intake Total 360 ml 600 ml Balance 360 ml 600 ml Current Medications: Meds: Current Medications Medications (Trade) Dose Ordered Sig/Indra Route PRN Reason Start Time Stop Time Status Last Admin Dose Admin Acetaminophen (Tylenol) 650 mg PRN Q6HRS PRN PO MILD PAIN / TEMP > 100.3'F 06/21/20 16:15 Multi-Ingredient Ointment (Analgesic [place]) 1 joesph PRN QID PRN TP MUSCLE PAIN 06/21/20 16:15 Al Hydroxide/Mg Hydroxide (Mylanta Plus Xs) 15 ml PRN AFTMEALHC PRN PO DYSPEPSIA 06/21/20 16:15 Magnesium Hydroxide (Milk Of Magnesia) 2,400 mg PRN QHS PRN PO CONSTIPATION 06/21/20 16:15 Acetaminophen (Tylenol) 500 mg PRN Q6HRS PRN PO pain or fever 06/21/20 16:30 UNV Albuterol Sulfate (Ventolin) 2.5 mg PRN Q4HRS PRN IH FOR ASTHMA 06/21/20 16:30 UNV Amlodipine Besylate (Norvasc) 5 mg DAILY PO 06/22/20 09:00 08/04/20 08:23 Aripiprazole (Abilify) 15 mg DAILY PO 06/22/20 09:00 08/04/20 08:23 Aspirin (Aspirin Enteric Coated) 81 mg DAILY PO 06/22/20 09:00 08/04/20 08:22 Atorvastatin Calcium (Lipitor) 20 mg QHS PO 06/21/20 21:00 08/04/20 21:55 Calcium/Vitamin D (Oscal D 500mg/ 200uts) 1 tab BID PO 06/21/20 21:00 08/04/20 21:55 Vitamin D (Vitamin D3) 50,000 unit WEEKLY PO 06/25/20 09:00 07/30/20 08:23 Clonazepam (KlonoPIN) 0.5 mg PRN BID PRN PO ANXIETY / AGITATION 06/21/20 16:30 08/03/20 21:36 Cyanocobalamin (Vitamin B-12) 1,000 mcg QMONTH IM 07/17/20 09:00 07/17/20 08:38 Diclofenac Sodium (Voltaren) 2 joesph QID TP 06/21/20 17:00 08/03/20 21:00 Docusate Sodium (Colace) 100 mg BID PO 06/21/20 21:00 08/04/20 21:55 Furosemide (Lasix) 20 mg DAILY16 PO 06/22/20 16:00 06/27/20 16:15 DC 06/26/20 15:52 Isosorbide Mononitrate (Imdur) 30 mg DAILY08 PO 06/22/20 08:00 08/04/20 08:21 Ketoconazole (Nizoral 2% Shampoo) 1 joesph PRN DAILY PRN TP DANDRUFF 06/21/20 16:30 Levothyroxine Sodium (Synthroid) 75 mcg DAILY06 PO 06/22/20 06:00 08/05/20 06:18 Metoprolol Tartrate (Lopressor) 12.5 mg BID PO 06/21/20 21:00 08/04/20 08:25 Pantoprazole Sodium (Protonix) 40 mg DAILY08 PO 06/22/20 08:00 08/04/20 08:22 Ropinirole HCl (Requip) 0.5 mg HS PO 06/21/20 21:00 08/04/20 21:56 Salsalate (Salsalate) 1,000 mg 2100 PO 06/21/20 21:00 08/04/20 21:55 Salsalate (Salsalate) 1,500 mg 0800 PO 06/22/20 08:00 08/04/20 08:20 Sennosides (Senna) 8.6 mg BID76 PO 06/21/20 18:00 06/23/20 05:00 DC 06/22/20 16:04 Tramadol HCl (Ultram) 50 mg PRN Q6HRS PRN PO MOD-SEV PAIN 06/21/20 16:30 07/22/20 09:03 Triamcinolone Acetonide (Kenalog) 1 joesph PRN Q12HR PRN TP ITCHING 06/21/20 16:30 Vitamin A/Vitamin D (Vitamin A & D Ointment) 1 joesph PRN Q1HR PRN TP DRY SKIN / SCALING 06/21/20 16:30 Multi-Ingred Cream/Lotion/Oil/ Oint (Hydrocerin) 1 joesph BID TP 06/21/20 21:00 08/04/20 21:57 Fluoxetine HCl (PROzac) 80 mg DAILY08 PO 06/22/20 08:00 07/08/20 18:05 DC 07/08/20 04:26 Non-Formulary Medication (Liraglutide (Saxenda)) 1.8 mg 0800 SQ 06/22/20 08:00 UNV Melatonin (Melatonin) 3 mg HS PO 06/21/20 21:00 08/04/20 21:55 Non-Formulary Medication (Olodaterol HCl (Striverdi Respimat)) 4 gm DAILY08 IH 06/22/20 08:00 UNV Potassium Chloride (Klor-Con) 10 meq TID PO 06/21/20 21:00 06/27/20 16:15 DC 06/27/20 13:12 Quetiapine Fumarate (SEROquel) 300 mg DAILY08 PO 06/22/20 08:00 08/04/20 08:20 Quetiapine Fumarate (SEROquel) 600 mg HS PO 06/21/20 21:00 08/04/20 21:57 Hydroxyzine HCl (Atarax) 25 mg TID PO 06/21/20 21:00 08/04/20 21:55 Albuterol Sulfate (Ventolin Hfa Inhaler) 2 puff PRN Q4HRS PRN INH SHORTNESS OF BREATH 06/21/20 17:15 Divalproex Sodium (Depakote Er) 500 mg QHS PO 06/21/20 21:00 06/24/20 17:35 DC 06/23/20 19:43 Divalproex Sodium (Depakote Er) 500 mg QHS PO 06/22/20 21:00 06/22/20 12:14 DC Sennosides (Senna) 8.6 mg BIDACBL PO 06/23/20 07:30 08/04/20 13:47 Divalproex Sodium (Depakote Er) 750 mg QHS PO 06/24/20 21:00 06/25/20 19:31 DC 06/24/20 21:05 Divalproex Sodium (Depakote Er) 500 mg QHS PO 06/25/20 21:00 08/04/20 21:54 Divalproex Sodium (Depakote Er) 250 mg QHS PO 06/25/20 21:00 08/04/20 21:54 Furosemide (Lasix) 60 mg 1X ONCE PO 06/26/20 21:15 06/26/20 22:10 DC 06/27/20 05:51 Furosemide (Lasix) 40 mg DAILY PO 06/27/20 16:15 08/04/20 08:23 Potassium Chloride (Klor-Con) 20 meq BID PO 06/27/20 21:00 08/04/20 21:56 Fluoxetine HCl (PROzac) 60 mg DAILY08 PO 07/09/20 08:00 07/10/20 20:09 DC 07/10/20 09:09 Bupropion HCl (Wellbutrin Xl) 150 mg DAILY PO 07/09/20 09:00 07/10/20 20:09 DC 07/10/20 09:10 Olanzapine (ZyPREXA ZYDIS) 2.5 mg PRN Q2HR PRN PO PSYCHOSIS 07/10/20 20:00 07/14/20 22:10 Fluoxetine HCl (PROzac) 80 mg DAILY PO 07/11/20 08:00 08/04/20 08:22 Iohexol (Omnipaque 350 Mg/ml) 100 ml 1X ONCE IV 07/27/20 08:30 07/27/20 08:31 DC 07/27/20 08:43 Amoxicillin/ Clavulanate Potassium (Augmentin 875/ 125mg) 1 tab BID PO 07/27/20 21:00 08/05/20 22:00 08/04/20 21:55 Lactobacillus Rhamnosus (Culturelle) 1 cap BID PO 07/27/20 21:00 08/04/20 21:56 I have reviewed the current psychotropics carefully including drug interactions. Risk benefit ratio favors no change other than as noted in my dictated progress note. Diagnosis: Problems: (1) Schizoaffective disorder, bipolar type (2) Impulse control disorder, unspecified (3) Anxiety disorder, unspecified (4) Bipolar 1 disorder, mixed, partial remission MICHAEL CLARK MD August 05, 2020 09:03
[2020-08-05] MEDS: ARIPiprazole 15 MG TABLET PO SCH (09:12)
[2020-08-05] MEDS: FUROSEMIDE 40 MG TABLET PO SCH (09:12)
[2020-08-05] MEDS: DOCUSATE SODIUM 100 MG CAPSULE PO SCH ×2 (09:12→21:09)
[2020-08-05] MEDS: ASPIRIN ENTERIC COATED 81 MG TABLET.DR. PO SCH (09:12)
[2020-08-05] MEDS: QUEtiapine 100 MG TABLET. PO SCH ×2 (09:12→21:05)
[2020-08-05] MEDS: CALCIUM CARB/VIT D3 500/200 TABLET PO SCH ×2 (09:12→21:06)
[2020-08-05] MEDS: ISOSORBIDE MONONITRATE ER 30 MG TAB.ER.24H PO SCH (09:12)
[2020-08-05] MEDS: SALSALATE 500 MG PO SCH ×2 (09:13→21:07)
[2020-08-05] MEDS: SENNOSIDES 8.6 MG TABLET PO SCH ×2 (09:13→12:12)
[2020-08-05] MEDS: PANTOPRAZOLE 40 MG TABLET. PO SCH (09:13)
[2020-08-05] MEDS: AMOXICILLIN/K CLAV 875/125MG TABLET. PO SCH ×2 (09:13→21:08)
[2020-08-05] MEDS: LACTOBACILLUS RHAMNOSUS GG 1 CAPSULE. PO SCH ×2 (09:13→21:06)
[2020-08-05] MEDS: hydrOXYzine HCL 25 MG TABLET PO SCH ×3 (09:13→21:06)
[2020-08-05] MEDS: POTASSIUM CHLORIDE 20 MEQ TABLET.ER. PO SCH ×2 (09:14→21:09)
[2020-08-05] MEDS: amLODIPine BESYLATE 5 MG TABLET PO SCH (09:14)
[2020-08-05] MEDS: METOPROLOL TART IMMED RELEASE 25 MG TABLET. PO SCH ×2 (09:14→21:06)
[2020-08-05] MEDS: FLUoxetine HCL 20 MG CAPSULE PO SCH (09:14)
[2020-08-05] MEDS: clonazePAM 0.5 MG TABLET PO PRN (09:14)
--- NOTE | 2020-08-05 09:27 | PDOC ---
Exam Note: [place] Note: This note is a late entry for 08/04/2020 covers elements not covered in my initial note. Subjective: The patient was seen individually in the evening of 08/04/2020 with Vivian WOMACK, discussed and reviewed the chart. The patient slept 5-1/2 hours previous night. She was somewhat grouchy, irritable last evening, better during the day today. Review of Systems: Ambulation impaired in wheelchair. No CV, , pulmonary, eye system symptoms on review. Mental Status Exam: The patient is reasonably oriented. Speech coherent has some latency. Abstraction fair. Computation impaired. Language function intact. Mood and affect somewhat withdrawn. Laboratory Data: Reviewed. Impression: Schizoaffective disorder, bipolar type, mixed with psychotic features in partial remission. Anxiety disorder unspecified. Impulse control disorder unspecified. Plan: Continue psychotropics from initial note. Assessment: Vital Signs/I&O: Vital Signs Date Time Temp Pulse Resp B/P (MAP) Pulse Ox O2 Delivery O2 Flow Rate FiO2 08/05/20 09:14 80 108/69 08/05/20 05:36 96.6 20 93 08/04/20 06:14 Nasal Cannula 2.0 I & O 08/04/20 08/04/20 08/05/20 15:00 23:00 07:00 Intake Total 360 ml 600 ml Balance 360 ml 600 ml Current Medications: Meds: Current Medications Medications (Trade) Dose Ordered Sig/Indra Route PRN Reason Start Time Stop Time Status Last Admin Dose Admin Acetaminophen (Tylenol) 650 mg PRN Q6HRS PRN PO MILD PAIN / TEMP > 100.3'F 06/21/20 16:15 Multi-Ingredient Ointment (Analgesic [place]) 1 joesph PRN QID PRN TP MUSCLE PAIN 06/21/20 16:15 Al Hydroxide/Mg Hydroxide (Mylanta Plus Xs) 15 ml PRN AFTMEALHC PRN PO DYSPEPSIA 06/21/20 16:15 Magnesium Hydroxide (Milk Of Magnesia) 2,400 mg PRN QHS PRN PO CONSTIPATION 06/21/20 16:15 Acetaminophen (Tylenol) 500 mg PRN Q6HRS PRN PO pain or fever 06/21/20 16:30 UNV Albuterol Sulfate (Ventolin) 2.5 mg PRN Q4HRS PRN IH FOR ASTHMA 06/21/20 16:30 UNV Amlodipine Besylate (Norvasc) 5 mg DAILY PO 06/22/20 09:00 08/05/20 09:14 Aripiprazole (Abilify) 15 mg DAILY PO 06/22/20 09:00 08/05/20 09:12 Aspirin (Aspirin Enteric Coated) 81 mg DAILY PO 06/22/20 09:00 08/05/20 09:12 Atorvastatin Calcium (Lipitor) 20 mg QHS PO 06/21/20 21:00 08/04/20 21:55 Calcium/Vitamin D (Oscal D 500mg/ 200uts) 1 tab BID PO 06/21/20 21:00 08/05/20 09:12 Vitamin D (Vitamin D3) 50,000 unit WEEKLY PO 06/25/20 09:00 07/30/20 08:23 Clonazepam (KlonoPIN) 0.5 mg PRN BID PRN PO ANXIETY / AGITATION 06/21/20 16:30 08/05/20 09:14 Cyanocobalamin (Vitamin B-12) 1,000 mcg QMONTH IM 07/17/20 09:00 07/17/20 08:38 Diclofenac Sodium (Voltaren) 2 joesph QID TP 06/21/20 17:00 08/05/20 09:00 Docusate Sodium (Colace) 100 mg BID PO 06/21/20 21:00 08/05/20 09:12 Furosemide (Lasix) 20 mg DAILY16 PO 06/22/20 16:00 06/27/20 16:15 DC 06/26/20 15:52 Isosorbide Mononitrate (Imdur) 30 mg DAILY08 PO 06/22/20 08:00 08/05/20 09:12 Ketoconazole (Nizoral 2% Shampoo) 1 joesph PRN DAILY PRN TP DANDRUFF 06/21/20 16:30 Levothyroxine Sodium (Synthroid) 75 mcg DAILY06 PO 06/22/20 06:00 08/05/20 06:18 Metoprolol Tartrate (Lopressor) 12.5 mg BID PO 06/21/20 21:00 08/05/20 09:14 Pantoprazole Sodium (Protonix) 40 mg DAILY08 PO 06/22/20 08:00 08/05/20 09:13 Ropinirole HCl (Requip) 0.5 mg HS PO 06/21/20 21:00 08/04/20 21:56 Salsalate (Salsalate) 1,000 mg 2100 PO 06/21/20 21:00 08/04/20 21:55 Salsalate (Salsalate) 1,500 mg 0800 PO 06/22/20 08:00 08/05/20 09:13 Sennosides (Senna) 8.6 mg BID76 PO 06/21/20 18:00 06/23/20 05:00 DC 06/22/20 16:04 Tramadol HCl (Ultram) 50 mg PRN Q6HRS PRN PO MOD-SEV PAIN 06/21/20 16:30 07/22/20 09:03 Triamcinolone Acetonide (Kenalog) 1 joesph PRN Q12HR PRN TP ITCHING 06/21/20 16:30 Vitamin A/Vitamin D (Vitamin A & D Ointment) 1 joesph PRN Q1HR PRN TP DRY SKIN / SCALING 06/21/20 16:30 Multi-Ingred Cream/Lotion/Oil/ Oint (Hydrocerin) 1 joesph BID TP 06/21/20 21:00 08/05/20 09:00 Fluoxetine HCl (PROzac) 80 mg DAILY08 PO 06/22/20 08:00 07/08/20 18:05 DC 07/08/20 04:26 Non-Formulary Medication (Liraglutide (Saxenda)) 1.8 mg 0800 SQ 06/22/20 08:00 UNV Melatonin (Melatonin) 3 mg HS PO 06/21/20 21:00 08/04/20 21:55 Non-Formulary Medication (Olodaterol HCl (Striverdi Respimat)) 4 gm DAILY08 IH 06/22/20 08:00 UNV Potassium Chloride (Klor-Con) 10 meq TID PO 06/21/20 21:00 06/27/20 16:15 DC 06/27/20 13:12 Quetiapine Fumarate (SEROquel) 300 mg DAILY08 PO 06/22/20 08:00 08/05/20 09:12 Quetiapine Fumarate (SEROquel) 600 mg HS PO 06/21/20 21:00 08/04/20 21:57 Hydroxyzine HCl (Atarax) 25 mg TID PO 06/21/20 21:00 08/05/20 09:13 Albuterol Sulfate (Ventolin Hfa Inhaler) 2 puff PRN Q4HRS PRN INH SHORTNESS OF BREATH 06/21/20 17:15 Divalproex Sodium (Depakote Er) 500 mg QHS PO 06/21/20 21:00 06/24/20 17:35 DC 06/23/20 19:43 Divalproex Sodium (Depakote Er) 500 mg QHS PO 06/22/20 21:00 06/22/20 12:14 DC Sennosides (Senna) 8.6 mg BIDACBL PO 06/23/20 07:30 08/05/20 09:13 Divalproex Sodium (Depakote Er) 750 mg QHS PO 06/24/20 21:00 06/25/20 19:31 DC 06/24/20 21:05 Divalproex Sodium (Depakote Er) 500 mg QHS PO 06/25/20 21:00 08/04/20 21:54 Divalproex Sodium (Depakote Er) 250 mg QHS PO 06/25/20 21:00 08/04/20 21:54 Furosemide (Lasix) 60 mg 1X ONCE PO 06/26/20 21:15 06/26/20 22:10 DC 06/27/20 05:51 Furosemide (Lasix) 40 mg DAILY PO 06/27/20 16:15 08/05/20 09:12 Potassium Chloride (Klor-Con) 20 meq BID PO 06/27/20 21:00 08/05/20 09:14 Fluoxetine HCl (PROzac) 60 mg DAILY08 PO 07/09/20 08:00 07/10/20 20:09 DC 07/10/20 09:09 Bupropion HCl (Wellbutrin Xl) 150 mg DAILY PO 07/09/20 09:00 07/10/20 20:09 DC 07/10/20 09:10 Olanzapine (ZyPREXA ZYDIS) 2.5 mg PRN Q2HR PRN PO PSYCHOSIS 07/10/20 20:00 07/14/20 22:10 Fluoxetine HCl (PROzac) 80 mg DAILY PO 07/11/20 08:00 08/05/20 09:14 Iohexol (Omnipaque 350 Mg/ml) 100 ml 1X ONCE IV 07/27/20 08:30 07/27/20 08:31 DC 07/27/20 08:43 Amoxicillin/ Clavulanate Potassium (Augmentin 875/ 125mg) 1 tab BID PO 07/27/20 21:00 08/05/20 22:00 08/05/20 09:13 Lactobacillus Rhamnosus (Culturelle) 1 cap BID PO 07/27/20 21:00 08/05/20 09:13 I have reviewed the current psychotropics carefully including drug interactions. Risk benefit ratio favors no change other than as noted in my dictated progress note. Diagnosis: Problems: (1) Schizoaffective disorder, bipolar type (2) Impulse control disorder, unspecified (3) Anxiety disorder, unspecified (4) Bipolar 1 disorder, mixed, partial remission MICHAEL CLARK MD August 05, 2020 09:27
[2020-08-05 15:45] VITALS: BP 125/76
[2020-08-05] MEDS: MELATONIN 3 MG TABLET PO SCH (21:06)
[2020-08-05] MEDS: rOPINIRole 0.5 MG TABLET. PO SCH (21:06)
[2020-08-05] MEDS: DIVALPROEX ER 250 MG TAB.ER.24H. PO SCH (21:06)
[2020-08-05] MEDS: DIVALPROEX ER 500 MG TAB.ER.24H PO SCH (21:06)
[2020-08-05] MEDS: ATORVASTATIN CALCIUM 20 MG TABLET PO SCH (21:09)
--- NOTE | 2020-08-05 22:16 | PDOC ---
Exam Note: [place] Note: Please also refer to the separate dictated note~for this date of service dictated separately.~Patient seen individually. Discussed the patient with Nursing staff reviewed the chart.~Reviewed interim history and current functioning. Reviewed vital signs,~Labs/ Radiology~and current medications noted below. Continue current treatment with the changes noted in the dictated addendum note Assessment: Vital Signs/I&O: Vital Signs Date Time Temp Pulse Resp B/P (MAP) Pulse Ox O2 Delivery O2 Flow Rate FiO2 08/05/20 21:06 70 125/76 08/05/20 15:45 97.6 18 94 2.0 08/04/20 06:14 Nasal Cannula I & O 0 08/04/20 08/04/20 08/05/20 15:00 23:00 07:00 Intake Total 360 ml 600 ml Balance 360 ml 600 ml Current Medications: Meds: Current Medications Medications (Trade) Dose Ordered Sig/Indra Route PRN Reason Start Time Stop Time Status Last Admin Dose Admin Acetaminophen (Tylenol) 650 mg PRN Q6HRS PRN PO MILD PAIN / TEMP > 100.3'F 06/21/20 16:15 Multi-Ingredient Ointment (Analgesic [place]) 1 joesph PRN QID PRN TP MUSCLE PAIN 06/21/20 16:15 Al Hydroxide/Mg Hydroxide (Mylanta Plus Xs) 15 ml PRN AFTMEALHC PRN PO DYSPEPSIA 06/21/20 16:15 Magnesium Hydroxide (Milk Of Magnesia) 2,400 mg PRN QHS PRN PO CONSTIPATION 06/21/20 16:15 Acetaminophen (Tylenol) 500 mg PRN Q6HRS PRN PO pain or fever 06/21/20 16:30 UNV Albuterol Sulfate (Ventolin) 2.5 mg PRN Q4HRS PRN IH FOR ASTHMA 06/21/20 16:30 UNV Amlodipine Besylate (Norvasc) 5 mg DAILY PO 06/22/20 09:00 08/05/20 09:14 Aripiprazole (Abilify) 15 mg DAILY PO 06/22/20 09:00 08/05/20 09:12 Aspirin (Aspirin Enteric Coated) 81 mg DAILY PO 06/22/20 09:00 08/05/20 09:12 Atorvastatin Calcium (Lipitor) 20 mg QHS PO 06/21/20 21:00 08/05/20 21:09 Calcium/Vitamin D (Oscal D 500mg/ 200uts) 1 tab BID PO 06/21/20 21:00 08/05/20 21:06 Vitamin D (Vitamin D3) 50,000 unit WEEKLY PO 06/25/20 09:00 07/30/20 08:23 Clonazepam (KlonoPIN) 0.5 mg PRN BID PRN PO ANXIETY / AGITATION 06/21/20 16:30 08/05/20 09:14 Cyanocobalamin (Vitamin B-12) 1,000 mcg QMONTH IM 07/17/20 09:00 07/17/20 08:38 Diclofenac Sodium (Voltaren) 2 joesph QID TP 06/21/20 17:00 08/05/20 21:00 Docusate Sodium (Colace) 100 mg BID PO 06/21/20 21:00 08/05/20 21:09 Furosemide (Lasix) 20 mg DAILY16 PO 06/22/20 16:00 06/27/20 16:15 DC 06/26/20 15:52 Isosorbide Mononitrate (Imdur) 30 mg DAILY08 PO 06/22/20 08:00 08/05/20 09:12 Ketoconazole (Nizoral 2% Shampoo) 1 joesph PRN DAILY PRN TP DANDRUFF 06/21/20 16:30 Levothyroxine Sodium (Synthroid) 75 mcg DAILY06 PO 06/22/20 06:00 08/05/20 06:18 Metoprolol Tartrate (Lopressor) 12.5 mg BID PO 06/21/20 21:00 08/05/20 21:06 Pantoprazole Sodium (Protonix) 40 mg DAILY08 PO 06/22/20 08:00 08/05/20 09:13 Ropinirole HCl (Requip) 0.5 mg HS PO 06/21/20 21:00 08/05/20 21:06 Salsalate (Salsalate) 1,000 mg 2100 PO 06/21/20 21:00 08/05/20 21:07 Salsalate (Salsalate) 1,500 mg 0800 PO 06/22/20 08:00 08/05/20 09:13 Sennosides (Senna) 8.6 mg BID76 PO 06/21/20 18:00 06/23/20 05:00 DC 06/22/20 16:04 Tramadol HCl (Ultram) 50 mg PRN Q6HRS PRN PO MOD-SEV PAIN 06/21/20 16:30 07/22/20 09:03 Triamcinolone Acetonide (Kenalog) 1 joesph PRN Q12HR PRN TP ITCHING 06/21/20 16:30 Vitamin A/Vitamin D (Vitamin A & D Ointment) 1 joesph PRN Q1HR PRN TP DRY SKIN / SCALING 06/21/20 16:30 Multi-Ingred Cream/Lotion/Oil/ Oint (Hydrocerin) 1 joesph BID TP 06/21/20 21:00 08/05/20 21:00 Fluoxetine HCl (PROzac) 80 mg DAILY08 PO 06/22/20 08:00 07/08/20 18:05 DC 07/08/20 04:26 Non-Formulary Medication (Liraglutide (Saxenda)) 1.8 mg 0800 SQ 06/22/20 08:00 UNV Melatonin (Melatonin) 3 mg HS PO 06/21/20 21:00 08/05/20 21:06 Non-Formulary Medication (Olodaterol HCl (Striverdi Respimat)) 4 gm DAILY08 IH 06/22/20 08:00 UNV Potassium Chloride (Klor-Con) 10 meq TID PO 06/21/20 21:00 06/27/20 16:15 DC 06/27/20 13:12 Quetiapine Fumarate (SEROquel) 300 mg DAILY08 PO 06/22/20 08:00 08/05/20 09:12 Quetiapine Fumarate (SEROquel) 600 mg HS PO 06/21/20 21:00 08/05/20 21:05 Hydroxyzine HCl (Atarax) 25 mg TID PO 06/21/20 21:00 08/05/20 21:06 Albuterol Sulfate (Ventolin Hfa Inhaler) 2 puff PRN Q4HRS PRN INH SHORTNESS OF BREATH 06/21/20 17:15 Divalproex Sodium (Depakote Er) 500 mg QHS PO 06/21/20 21:00 06/24/20 17:35 DC 06/23/20 19:43 Divalproex Sodium (Depakote Er) 500 mg QHS PO 06/22/20 21:00 06/22/20 12:14 DC Sennosides (Senna) 8.6 mg BIDACBL PO 06/23/20 07:30 08/05/20 12:12 Divalproex Sodium (Depakote Er) 750 mg QHS PO 06/24/20 21:00 06/25/20 19:31 DC 06/24/20 21:05 Divalproex Sodium (Depakote Er) 500 mg QHS PO 06/25/20 21:00 08/05/20 21:06 Divalproex Sodium (Depakote Er) 250 mg QHS PO 06/25/20 21:00 08/05/20 21:06 Furosemide (Lasix) 60 mg 1X ONCE PO 06/26/20 21:15 06/26/20 22:10 DC 06/27/20 05:51 Furosemide (Lasix) 40 mg DAILY PO 06/27/20 16:15 08/05/20 09:12 Potassium Chloride (Klor-Con) 20 meq BID PO 06/27/20 21:00 08/05/20 21:09 Fluoxetine HCl (PROzac) 60 mg DAILY08 PO 07/09/20 08:00 07/10/20 20:09 DC 07/10/20 09:09 Bupropion HCl (Wellbutrin Xl) 150 mg DAILY PO 07/09/20 09:00 07/10/20 20:09 DC 07/10/20 09:10 Olanzapine (ZyPREXA ZYDIS) 2.5 mg PRN Q2HR PRN PO PSYCHOSIS 07/10/20 20:00 07/14/20 22:10 Fluoxetine HCl (PROzac) 80 mg DAILY PO 07/11/20 08:00 08/05/20 09:14 Iohexol (Omnipaque 350 Mg/ml) 100 ml 1X ONCE IV 07/27/20 08:30 07/27/20 08:31 DC 07/27/20 08:43 Amoxicillin/ Clavulanate Potassium (Augmentin 875/ 125mg) 1 tab BID PO 07/27/20 21:00 08/05/20 22:00 DC 08/05/20 21:08 Lactobacillus Rhamnosus (Culturelle) 1 cap BID PO 07/27/20 21:00 08/05/20 21:06 I have reviewed the current psychotropics carefully including drug interactions. Risk benefit ratio favors no change other than as noted in my dictated progress note. Diagnosis: Problems: (1) Schizoaffective disorder, bipolar type (2) Impulse control disorder, unspecified (3) Anxiety disorder, unspecified (4) Bipolar 1 disorder, mixed, partial remission MICHAEL CLARK MD August 05, 2020 22:16
[2020-08-06] MEDS: clonazePAM 0.5 MG TABLET PO PRN (01:44)
[2020-08-06] MEDS ORDERED: OLAN5TAB99 PO (02:02)
[2020-08-06] MEDS: LEVOTHYROXINE 75 MCG TABLET PO SCH (06:00)
[2020-08-06 06:28] VITALS: BP 109/69
--- NOTE | 2020-08-06 07:18 | PDOC ---
Exam Note: [place] Note: This note is a late entry for 08/05/2020 covers elements not covered in my initial note. Subjective: The patient was seen individually in the evening of 08/05/2020 with Manny WOMACK, discussed and reviewed the chart. The patient slept 5-1/4 hours previous night. She has been more stable. She was anxious in the morning. Received Klonopin at 9.30 a.m. Plan is for discharge to half-way tomorrow. I met with her in her room at length. Review of Systems: Ambulation impaired in wheelchair. Some shortness of breath. No CV, , eye system symptoms on review. Mental Status Exam: The patient is reasonably oriented. Speech coherent has some latency. Abstraction fair. Computation impaired. Language function intact. Mood and affect somewhat withdrawn. Laboratory Data: Reviewed. Impression: Schizoaffective disorder, bipolar type, mixed with psychotic features in partial remission. Anxiety disorder unspecified. Impulse control disorder unspecified. Plan: Continue psychotropics from initial note. Assessment: Vital Signs/I&O: Vital Signs Date Time Temp Pulse Resp B/P (MAP) Pulse Ox O2 Delivery O2 Flow Rate FiO2 08/06/20 06:28 97.8 57 22 109/69 (82) 91 08/05/20 15:45 2.0 08/04/20 06:14 Nasal Cannula I & O0 08/05/20 08/05/20 08/06/20 14:59 22:59 06:59 Intake Total 600 ml 480 ml Balance 600 ml 480 ml Current Medications: Meds: Current Medications Medications (Trade) Dose Ordered Sig/Indra Route PRN Reason Start Time Stop Time Status Last Admin Dose Admin Acetaminophen (Tylenol) 650 mg PRN Q6HRS PRN PO MILD PAIN / TEMP > 100.3'F 06/21/20 16:15 Multi-Ingredient Ointment (Analgesic [place]) 1 joesph PRN QID PRN TP MUSCLE PAIN 06/21/20 16:15 Al Hydroxide/Mg Hydroxide (Mylanta Plus Xs) 15 ml PRN AFTMEALHC PRN PO DYSPEPSIA 06/21/20 16:15 Magnesium Hydroxide (Milk Of Magnesia) 2,400 mg PRN QHS PRN PO CONSTIPATION 06/21/20 16:15 Acetaminophen (Tylenol) 500 mg PRN Q6HRS PRN PO pain or fever 06/21/20 16:30 UNV Albuterol Sulfate (Ventolin) 2.5 mg PRN Q4HRS PRN IH FOR ASTHMA 06/21/20 16:30 UNV Amlodipine Besylate (Norvasc) 5 mg DAILY PO 06/22/20 09:00 08/05/20 09:14 Aripiprazole (Abilify) 15 mg DAILY PO 06/22/20 09:00 08/05/20 09:12 Aspirin (Aspirin Enteric Coated) 81 mg DAILY PO 06/22/20 09:00 08/05/20 09:12 Atorvastatin Calcium (Lipitor) 20 mg QHS PO 06/21/20 21:00 08/05/20 21:09 Calcium/Vitamin D (Oscal D 500mg/ 200uts) 1 tab BID PO 06/21/20 21:00 08/05/20 21:06 Vitamin D (Vitamin D3) 50,000 unit WEEKLY PO 06/25/20 09:00 07/30/20 08:23 Clonazepam (KlonoPIN) 0.5 mg PRN BID PRN PO ANXIETY / AGITATION 06/21/20 16:30 08/06/20 01:44 Cyanocobalamin (Vitamin B-12) 1,000 mcg QMONTH IM 07/17/20 09:00 07/17/20 08:38 Diclofenac Sodium (Voltaren) 2 joesph QID TP 06/21/20 17:00 08/05/20 21:00 Docusate Sodium (Colace) 100 mg BID PO 06/21/20 21:00 08/05/20 21:09 Furosemide (Lasix) 20 mg DAILY16 PO 06/22/20 16:00 06/27/20 16:15 DC 06/26/20 15:52 Isosorbide Mononitrate (Imdur) 30 mg DAILY08 PO 06/22/20 08:00 08/05/20 09:12 Ketoconazole (Nizoral 2% Shampoo) 1 joesph PRN DAILY PRN TP DANDRUFF 06/21/20 16:30 Levothyroxine Sodium (Synthroid) 75 mcg DAILY06 PO 06/22/20 06:00 08/06/20 06:00 Metoprolol Tartrate (Lopressor) 12.5 mg BID PO 06/21/20 21:00 08/05/20 21:06 Pantoprazole Sodium (Protonix) 40 mg DAILY08 PO 06/22/20 08:00 08/05/20 09:13 Ropinirole HCl (Requip) 0.5 mg HS PO 06/21/20 21:00 08/05/20 21:06 Salsalate (Salsalate) 1,000 mg 2100 PO 06/21/20 21:00 08/05/20 21:07 Salsalate (Salsalate) 1,500 mg 0800 PO 06/22/20 08:00 08/05/20 09:13 Sennosides (Senna) 8.6 mg BID76 PO 06/21/20 18:00 06/23/20 05:00 DC 06/22/20 16:04 Tramadol HCl (Ultram) 50 mg PRN Q6HRS PRN PO MOD-SEV PAIN 06/21/20 16:30 07/22/20 09:03 Triamcinolone Acetonide (Kenalog) 1 joesph PRN Q12HR PRN TP ITCHING 06/21/20 16:30 Vitamin A/Vitamin D (Vitamin A & D Ointment) 1 joesph PRN Q1HR PRN TP DRY SKIN / SCALING 06/21/20 16:30 Multi-Ingred Cream/Lotion/Oil/ Oint (Hydrocerin) 1 joesph BID TP 06/21/20 21:00 08/05/20 21:00 Fluoxetine HCl (PROzac) 80 mg DAILY08 PO 06/22/20 08:00 07/08/20 18:05 DC 07/08/20 04:26 Non-Formulary Medication (Liraglutide (Saxenda)) 1.8 mg 0800 SQ 06/22/20 08:00 UNV Melatonin (Melatonin) 3 mg HS PO 06/21/20 21:00 08/05/20 21:06 Non-Formulary Medication (Olodaterol HCl (Striverdi Respimat)) 4 gm DAILY08 IH 06/22/20 08:00 UNV Potassium Chloride (Klor-Con) 10 meq TID PO 06/21/20 21:00 06/27/20 16:15 DC 06/27/20 13:12 Quetiapine Fumarate (SEROquel) 300 mg DAILY08 PO 06/22/20 08:00 08/05/20 09:12 Quetiapine Fumarate (SEROquel) 600 mg HS PO 06/21/20 21:00 08/05/20 21:05 Hydroxyzine HCl (Atarax) 25 mg TID PO 06/21/20 21:00 08/05/20 21:06 Albuterol Sulfate (Ventolin Hfa Inhaler) 2 puff PRN Q4HRS PRN INH SHORTNESS OF BREATH 06/21/20 17:15 Divalproex Sodium (Depakote Er) 500 mg QHS PO 06/21/20 21:00 06/24/20 17:35 DC 06/23/20 19:43 Divalproex Sodium (Depakote Er) 500 mg QHS PO 06/22/20 21:00 06/22/20 12:14 DC Sennosides (Senna) 8.6 mg BIDACBL PO 06/23/20 07:30 08/05/20 12:12 Divalproex Sodium (Depakote Er) 750 mg QHS PO 06/24/20 21:00 06/25/20 19:31 DC 06/24/20 21:05 Divalproex Sodium (Depakote Er) 500 mg QHS PO 06/25/20 21:00 08/05/20 21:06 Divalproex Sodium (Depakote Er) 250 mg QHS PO 06/25/20 21:00 08/05/20 21:06 Furosemide (Lasix) 60 mg 1X ONCE PO 06/26/20 21:15 06/26/20 22:10 DC 06/27/20 05:51 Furosemide (Lasix) 40 mg DAILY PO 06/27/20 16:15 08/05/20 09:12 Potassium Chloride (Klor-Con) 20 meq BID PO 06/27/20 21:00 08/05/20 21:09 Fluoxetine HCl (PROzac) 60 mg DAILY08 PO 07/09/20 08:00 07/10/20 20:09 DC 07/10/20 09:09 Bupropion HCl (Wellbutrin Xl) 150 mg DAILY PO 07/09/20 09:00 07/10/20 20:09 DC 07/10/20 09:10 Olanzapine (ZyPREXA ZYDIS) 2.5 mg PRN Q2HR PRN PO PSYCHOSIS 07/10/20 20:00 07/14/20 22:10 Fluoxetine HCl (PROzac) 80 mg DAILY PO 07/11/20 08:00 08/05/20 09:14 Iohexol (Omnipaque 350 Mg/ml) 100 ml 1X ONCE IV 07/27/20 08:30 07/27/20 08:31 DC 07/27/20 08:43 Amoxicillin/ Clavulanate Potassium (Augmentin 875/ 125mg) 1 tab BID PO 07/27/20 21:00 08/05/20 22:00 DC 08/05/20 21:08 Lactobacillus Rhamnosus (Culturelle) 1 cap BID PO 07/27/20 21:00 08/05/20 21:06 I have reviewed the current psychotropics carefully including drug interactions. Risk benefit ratio favors no change other than as noted in my dictated progress note. Diagnosis: Problems: (1) Schizoaffective disorder, bipolar type (2) Impulse control disorder, unspecified (3) Anxiety disorder, unspecified (4) Bipolar 1 disorder, mixed, partial remission MICHAEL CLARK MD August 06, 2020 07:18
[2020-08-06] MEDS: NON FORMULARY ITEM (Olodaterol HCl (Striverdi Respimat) 4 GM) IH SCH (08:00)
[2020-08-06] MEDS: LIRAGLUTIDE 1.8 MG SQ SCH (08:00)
[2020-08-06] MEDS: ISOSORBIDE MONONITRATE ER 30 MG TAB.ER.24H PO SCH (08:22)
[2020-08-06] MEDS: FLUoxetine HCL 20 MG CAPSULE PO SCH (08:22)
[2020-08-06] MEDS: QUEtiapine 100 MG TABLET. PO SCH (08:22)
[2020-08-06] MEDS: ARIPiprazole 15 MG TABLET PO SCH (08:22)
[2020-08-06] MEDS: SENNOSIDES 8.6 MG TABLET PO SCH (08:22)
[2020-08-06] MEDS: SALSALATE 500 MG PO SCH (08:23)
[2020-08-06] MEDS: FUROSEMIDE 40 MG TABLET PO SCH (08:23)
[2020-08-06] MEDS: amLODIPine BESYLATE 5 MG TABLET PO SCH (08:24)
[2020-08-06] MEDS: POTASSIUM CHLORIDE 20 MEQ TABLET.ER. PO SCH (08:24)
[2020-08-06] MEDS: CALCIUM CARB/VIT D3 500/200 TABLET PO SCH (08:24)
[2020-08-06] MEDS: ASPIRIN ENTERIC COATED 81 MG TABLET.DR. PO SCH (08:24)
[2020-08-06 08:25] VITALS: BP 109/69
[2020-08-06] MEDS: DOCUSATE SODIUM 100 MG CAPSULE PO SCH (08:25)
[2020-08-06] MEDS: PANTOPRAZOLE 40 MG TABLET. PO SCH (08:25)
[2020-08-06] MEDS: LACTOBACILLUS RHAMNOSUS GG 1 CAPSULE. PO SCH (08:25)
[2020-08-06] MEDS: METOPROLOL TART IMMED RELEASE 25 MG TABLET. PO SCH (08:25)
[2020-08-06] MEDS: hydrOXYzine HCL 25 MG TABLET PO SCH (08:25)
[2020-08-06] MEDS: DICLOFENAC SODIUM 1% TOPICAL GEL 100GM TUBE. TP SCH (08:27)
[2020-08-06] MEDS: MINERAL OIL/PETROLATUM TOPICAL CREAM 113GM JAR. TP SCH (08:27)
--- NOTE | 2020-08-06 22:22 | PDOC ---
Exam Note: [place] Note: Please also refer to the separate dictated note~for this date of service dictated separately.~Patient seen individually. Discussed the patient with Nursing staff reviewed the chart.~Reviewed interim history and current functioning. Reviewed vital signs,~Labs/ Radiology~and current medications noted below. Continue current treatment with the changes noted in the dictated addendum note Assessment: Vital Signs/I&O: Vital Signs Date Time Temp Pulse Resp B/P (MAP) Pulse Ox O2 Delivery O2 Flow Rate FiO2 08/06/20 08:25 57 109/69 08/06/20 06:28 97.8 22 91 08/05/20 15:45 2.0 08/04/20 06:14 Nasal Cannula I & O 08/05/20 08/05/20 08/06/20 14:59 22:59 06:59 Intake Total 600 ml 480 ml Balance 600 ml 480 ml Current Medications: Meds: Current Medications Medications (Trade) Dose Ordered Sig/Indra Route PRN Reason Start Time Stop Time Status Last Admin Dose Admin Acetaminophen (Tylenol) 650 mg PRN Q6HRS PRN PO MILD PAIN / TEMP > 100.3'F 06/21/20 16:15 08/06/20 10:33 DC Multi-Ingredient Ointment (Analgesic [place]) 1 joesph PRN QID PRN TP MUSCLE PAIN 06/21/20 16:15 08/06/20 10:33 DC Al Hydroxide/Mg Hydroxide (Mylanta Plus Xs) 15 ml PRN AFTMEALHC PRN PO DYSPEPSIA 06/21/20 16:15 08/06/20 10:33 DC Magnesium Hydroxide (Milk Of Magnesia) 2,400 mg PRN QHS PRN PO CONSTIPATION 06/21/20 16:15 08/06/20 10:33 DC Acetaminophen (Tylenol) 500 mg PRN Q6HRS PRN PO pain or fever 06/21/20 16:30 UNV Albuterol Sulfate (Ventolin) 2.5 mg PRN Q4HRS PRN IH FOR ASTHMA 06/21/20 16:30 UNV Amlodipine Besylate (Norvasc) 5 mg DAILY PO 06/22/20 09:00 08/06/20 10:33 DC 08/06/20 08:24 Aripiprazole (Abilify) 15 mg DAILY PO 06/22/20 09:00 08/06/20 10:33 DC 08/06/20 08:22 Aspirin (Aspirin Enteric Coated) 81 mg DAILY PO 06/22/20 09:00 08/06/20 10:33 DC 08/06/20 08:24 Atorvastatin Calcium (Lipitor) 20 mg QHS PO 06/21/20 21:00 08/06/20 10:33 DC 08/05/20 21:09 Calcium/Vitamin D (Oscal D 500mg/ 200uts) 1 tab BID PO 06/21/20 21:00 08/06/20 10:33 DC 08/06/20 08:24 Vitamin D (Vitamin D3) 50,000 unit WEEKLY PO 06/25/20 09:00 08/06/20 10:33 DC 07/30/20 08:23 Clonazepam (KlonoPIN) 0.5 mg PRN BID PRN PO ANXIETY / AGITATION 06/21/20 16:30 08/06/20 10:33 DC 08/06/20 01:44 Cyanocobalamin (Vitamin B-12) 1,000 mcg QMONTH IM 07/17/20 09:00 08/06/20 10:33 DC 07/17/20 08:38 Diclofenac Sodium (Voltaren) 2 joesph QID TP 06/21/20 17:00 08/06/20 10:33 DC 08/05/20 21:00 Docusate Sodium (Colace) 100 mg BID PO 06/21/20 21:00 08/06/20 10:33 DC 08/06/20 08:25 Furosemide (Lasix) 20 mg DAILY16 PO 06/22/20 16:00 06/27/20 16:15 DC 06/26/20 15:52 Isosorbide Mononitrate (Imdur) 30 mg DAILY08 PO 06/22/20 08:00 08/06/20 10:33 DC 08/06/20 08:22 Ketoconazole (Nizoral 2% Shampoo) 1 joesph PRN DAILY PRN TP DANDRUFF 06/21/20 16:30 08/06/20 10:33 DC Levothyroxine Sodium (Synthroid) 75 mcg DAILY06 PO 06/22/20 06:00 08/06/20 10:33 DC 08/06/20 06:00 Metoprolol Tartrate (Lopressor) 12.5 mg BID PO 06/21/20 21:00 08/06/20 10:33 DC 08/06/20 08:25 Pantoprazole Sodium (Protonix) 40 mg DAILY08 PO 06/22/20 08:00 08/06/20 10:33 DC 08/06/20 08:25 Ropinirole HCl (Requip) 0.5 mg HS PO 06/21/20 21:00 08/06/20 10:33 DC 08/05/20 21:06 Salsalate (Salsalate) 1,000 mg 2100 PO 06/21/20 21:00 08/06/20 10:33 DC 08/05/20 21:07 Salsalate (Salsalate) 1,500 mg 0800 PO 06/22/20 08:00 08/06/20 10:33 DC 08/06/20 08:23 Sennosides (Senna) 8.6 mg BID76 PO 06/21/20 18:00 06/23/20 05:00 DC 06/22/20 16:04 Tramadol HCl (Ultram) 50 mg PRN Q6HRS PRN PO MOD-SEV PAIN 06/21/20 16:30 08/06/20 10:33 DC 07/22/20 09:03 Triamcinolone Acetonide (Kenalog) 1 joesph PRN Q12HR PRN TP ITCHING 06/21/20 16:30 08/06/20 10:33 DC Vitamin A/Vitamin D (Vitamin A & D Ointment) 1 joesph PRN Q1HR PRN TP DRY SKIN / SCALING 06/21/20 16:30 08/06/20 10:33 DC Multi-Ingred Cream/Lotion/Oil/ Oint (Hydrocerin) 1 joesph BID TP 06/21/20 21:00 08/06/20 10:33 DC 08/06/20 08:27 Fluoxetine HCl (PROzac) 80 mg DAILY08 PO 06/22/20 08:00 07/08/20 18:05 DC 07/08/20 04:26 Non-Formulary Medication (Liraglutide (Saxenda)) 1.8 mg 0800 SQ 06/22/20 08:00 08/06/20 10:33 DC Melatonin (Melatonin) 3 mg HS PO 06/21/20 21:00 08/06/20 10:33 DC 08/05/20 21:06 Non-Formulary Medication (Olodaterol HCl (Striverdi Respimat)) 4 gm DAILY08 IH 06/22/20 08:00 08/06/20 10:33 DC Potassium Chloride (Klor-Con) 10 meq TID PO 06/21/20 21:00 06/27/20 16:15 DC 06/27/20 13:12 Quetiapine Fumarate (SEROquel) 300 mg DAILY08 PO 06/22/20 08:00 08/06/20 10:33 DC 08/06/20 08:22 Quetiapine Fumarate (SEROquel) 600 mg HS PO 06/21/20 21:00 08/06/20 10:33 DC 08/05/20 21:05 Hydroxyzine HCl (Atarax) 25 mg TID PO 06/21/20 21:00 08/06/20 10:33 DC 08/06/20 08:25 Albuterol Sulfate (Ventolin Hfa Inhaler) 2 puff PRN Q4HRS PRN INH SHORTNESS OF BREATH 06/21/20 17:15 08/06/20 10:33 DC Divalproex Sodium (Depakote Er) 500 mg QHS PO 06/21/20 21:00 06/24/20 17:35 DC 06/23/20 19:43 Divalproex Sodium (Depakote Er) 500 mg QHS PO 06/22/20 21:00 06/22/20 12:14 DC Sennosides (Senna) 8.6 mg BIDACBL PO 06/23/20 07:30 08/06/20 10:33 DC 08/06/20 08:22 Divalproex Sodium (Depakote Er) 750 mg QHS PO 06/24/20 21:00 06/25/20 19:31 DC 06/24/20 21:05 Divalproex Sodium (Depakote Er) 500 mg QHS PO 06/25/20 21:00 08/06/20 10:33 DC 08/05/20 21:06 Divalproex Sodium (Depakote Er) 250 mg QHS PO 06/25/20 21:00 08/06/20 10:33 DC 08/05/20 21:06 Furosemide (Lasix) 60 mg 1X ONCE PO 06/26/20 21:15 06/26/20 22:10 DC 06/27/20 05:51 Furosemide (Lasix) 40 mg DAILY PO 06/27/20 16:15 08/06/20 10:33 DC 08/06/20 08:23 Potassium Chloride (Klor-Con) 20 meq BID PO 06/27/20 21:00 08/06/20 10:33 DC 08/06/20 08:24 Fluoxetine HCl (PROzac) 60 mg DAILY08 PO 07/09/20 08:00 07/10/20 20:09 DC 07/10/20 09:09 Bupropion HCl (Wellbutrin Xl) 150 mg DAILY PO 07/09/20 09:00 07/10/20 20:09 DC 07/10/20 09:10 Olanzapine (ZyPREXA ZYDIS) 2.5 mg PRN Q2HR PRN PO PSYCHOSIS 07/10/20 20:00 08/06/20 10:33 DC 07/14/20 22:10 Fluoxetine HCl (PROzac) 80 mg DAILY PO 07/11/20 08:00 08/06/20 10:33 DC 08/06/20 08:22 Iohexol (Omnipaque 350 Mg/ml) 100 ml 1X ONCE IV 07/27/20 08:30 07/27/20 08:31 DC 07/27/20 08:43 Amoxicillin/ Clavulanate Potassium (Augmentin 875/ 125mg) 1 tab BID PO 07/27/20 21:00 08/05/20 22:00 DC 08/05/20 21:08 Lactobacillus Rhamnosus (Culturelle) 1 cap BID PO 07/27/20 21:00 08/06/20 10:33 DC 08/06/20 08:25 I have reviewed the current psychotropics carefully including drug interactions. Risk benefit ratio favors no change other than as noted in my dictated progress note. Diagnosis: Problems: (1) Schizoaffective disorder, bipolar type (2) Impulse control disorder, unspecified (3) Anxiety disorder, unspecified (4) Bipolar 1 disorder, mixed, partial remission MICHAEL CLARK MD August 06, 2020 22:22
--- NOTE | 2020-08-08 00:45 | DS ---
DATE OF DISCHARGE: 08/06/2020 DISCHARGE SUMMARY/PSYCHIATRIC PROGRESS NOTE This is a late entry, date of service 08/06/2020, covers the elements not covered in my initial note. REASON FOR ADMISSION: Please refer to the admission history for details. Briefly, the patient is a 65-year-old female referred to us from the ICU after she is medically stabilized. The patient presented from home on account of increased paranoia, auditory hallucinations. She was hitting herself multiple times in the head causing abrasion, anxious, made statements, "I want to end this." The patient was initially admitted to us, was being stabilized and had to be medically transferred to the ICU, behaviors persisted thereafter and she returns to us. SIGNIFICANT FINDINGS AND CLINICAL COURSE: Following admission, the patient was seen daily individually by myself from a psychiatric standpoint. Medical followup with Dr. Lowe/Dr. Ryan. The patient continued to be depressed, anxious, labile in her mood, paranoid. Adjustments were made in her psychotropics and she seemed to respond to a combination of Abilify 15 mg a day, Klonopin 0.5 mg b.i.d. p.r.n., Prozac 80 mg a day, hydroxyzine 25 mg t.i.d., melatonin 3 mg at bedtime, Seroquel 300 mg daily, 600 mg at bedtime, Requip 0.5 mg at bedtime, Depakote ER 750 mg daily with a level of therapeutic at 52 and she was on Zyprexa p.r.n. Gradually mood appeared to improve. She was much less labile. No suicidal or homicidal ideation. Pulmonary function appeared better. REVIEW OF SYSTEMS: Ambulation impaired. No CV, , eye, ENT system symptoms on review. MENTAL STATUS EXAMINATION: Reasonably oriented. Speech has some latency, coherent. Abstraction fair, computation impaired. Language function intact. Attention span short. Mood and affect is improved. No suicidal or homicidal ideation at discharge. FINAL DIAGNOSES: Schizoaffective disorder, bipolar type depressed, in partial remission; anxiety disorder, unspecified; impulse control disorder, unspecified. Rest unchanged from admission. DISCHARGE MEDICATIONS: Please refer to the [facility]. DISCHARGE INSTRUCTIONS: Outpatient psychiatric and medical followup at the [facility] and the patient needs followup for her lung cancer at the [facility]. Time for discharge day management greater than 30 minutes. DEEPTHI/NASIMA/SAMIR DR: Cooper TID: [id number]
--- NOTE | 2020-08-10 09:13 | PDOC ---
Exam Note: [place] Note: This is an addendum to the discharge summary on Solange Galaviz. The patient was discharged on two routine antipsychotics, Quetiapine and Aripiprazole. She was not responding adequately either one alone and that is the reason the two were used in combination. Once she has been stable for about 90 days, consid eration may be given to gradually reducing the Abilify by 1 mg every 2 weeks till it is discontinued, so that ultimately she may remain on Seroquel as a single agent. The final decision of this will have to be left to the outpatient treating psychiatrist. Assessment: Vital Signs/I&O: Vital Signs Date Time Temp Pulse Resp B/P (MAP) Pulse Ox O2 Delivery O2 Flow Rate FiO2 08/06/20 08:25 57 109/69 08/06/20 06:28 97.8 22 91 08/05/20 15:45 2.0 Current Medications: Meds: Current Medications Medications (Trade) Dose Ordered Sig/Indra Route PRN Reason Start Time Stop Time Status Last Admin Dose Admin Acetaminophen (Tylenol) 650 mg PRN Q6HRS PRN PO MILD PAIN / TEMP > 100.3'F 06/21/20 16:15 08/06/20 10:33 DC Multi-Ingredient Ointment (Analgesic [place]) 1 joesph PRN QID PRN TP MUSCLE PAIN 06/21/20 16:15 08/06/20 10:33 DC Al Hydroxide/Mg Hydroxide (Mylanta Plus Xs) 15 ml PRN AFTMEALHC PRN PO DYSPEPSIA 06/21/20 16:15 08/06/20 10:33 DC Magnesium Hydroxide (Milk Of Magnesia) 2,400 mg PRN QHS PRN PO CONSTIPATION 06/21/20 16:15 08/06/20 10:33 DC Acetaminophen (Tylenol) 500 mg PRN Q6HRS PRN PO pain or fever 06/21/20 16:30 UNV Albuterol Sulfate (Ventolin) 2.5 mg PRN Q4HRS PRN IH FOR ASTHMA 06/21/20 16:30 UNV Amlodipine Besylate (Norvasc) 5 mg DAILY PO 06/22/20 09:00 08/06/20 10:33 DC 08/06/20 08:24 Aripiprazole (Abilify) 15 mg DAILY PO 06/22/20 09:00 08/06/20 10:33 DC 08/06/20 08:22 Aspirin (Aspirin Enteric Coated) 81 mg DAILY PO 06/22/20 09:00 08/06/20 10:33 DC 08/06/20 08:24 Atorvastatin Calcium (Lipitor) 20 mg QHS PO 06/21/20 21:00 08/06/20 10:33 DC 08/05/20 21:09 Calcium/Vitamin D (Oscal D 500mg/ 200uts) 1 tab BID PO 06/21/20 21:00 08/06/20 10:33 DC 08/06/20 08:24 Vitamin D (Vitamin D3) 50,000 unit WEEKLY PO 06/25/20 09:00 08/06/20 10:33 DC 07/30/20 08:23 Clonazepam (KlonoPIN) 0.5 mg PRN BID PRN PO ANXIETY / AGITATION 06/21/20 16:30 08/06/20 10:33 DC 08/06/20 01:44 Cyanocobalamin (Vitamin B-12) 1,000 mcg QMONTH IM 07/17/20 09:00 08/06/20 10:33 DC 07/17/20 08:38 Diclofenac Sodium (Voltaren) 2 joesph QID TP 06/21/20 17:00 08/06/20 10:33 DC 08/05/20 21:00 Docusate Sodium (Colace) 100 mg BID PO 06/21/20 21:00 08/06/20 10:33 DC 08/06/20 08:25 Furosemide (Lasix) 20 mg DAILY16 PO 06/22/20 16:00 06/27/20 16:15 DC 06/26/20 15:52 Isosorbide Mononitrate (Imdur) 30 mg DAILY08 PO 06/22/20 08:00 08/06/20 10:33 DC 08/06/20 08:22 Ketoconazole (Nizoral 2% Shampoo) 1 joesph PRN DAILY PRN TP DANDRUFF 06/21/20 16:30 08/06/20 10:33 DC Levothyroxine Sodium (Synthroid) 75 mcg DAILY06 PO 06/22/20 06:00 08/06/20 10:33 DC 08/06/20 06:00 Metoprolol Tartrate (Lopressor) 12.5 mg BID PO 06/21/20 21:00 08/06/20 10:33 DC 08/06/20 08:25 Pantoprazole Sodium (Protonix) 40 mg DAILY08 PO 06/22/20 08:00 08/06/20 10:33 DC 08/06/20 08:25 Ropinirole HCl (Requip) 0.5 mg HS PO 06/21/20 21:00 08/06/20 10:33 DC 08/05/20 21:06 Salsalate (Salsalate) 1,000 mg 2100 PO 06/21/20 21:00 08/06/20 10:33 DC 08/05/20 21:07 Salsalate (Salsalate) 1,500 mg 0800 PO 06/22/20 08:00 08/06/20 10:33 DC 08/06/20 08:23 Sennosides (Senna) 8.6 mg BID76 PO 06/21/20 18:00 06/23/20 05:00 DC 06/22/20 16:04 Tramadol HCl (Ultram) 50 mg PRN Q6HRS PRN PO MOD-SEV PAIN 06/21/20 16:30 08/06/20 10:33 DC 07/22/20 09:03 Triamcinolone Acetonide (Kenalog) 1 joesph PRN Q12HR PRN TP ITCHING 06/21/20 16:30 08/06/20 10:33 DC Vitamin A/Vitamin D (Vitamin A & D Ointment) 1 joesph PRN Q1HR PRN TP DRY SKIN / SCALING 06/21/20 16:30 08/06/20 10:33 DC Multi-Ingred Cream/Lotion/Oil/ Oint (Hydrocerin) 1 joesph BID TP 06/21/20 21:00 08/06/20 10:33 DC 08/06/20 08:27 Fluoxetine HCl (PROzac) 80 mg DAILY08 PO 06/22/20 08:00 07/08/20 18:05 DC 07/08/20 04:26 Non-Formulary Medication (Liraglutide (Saxenda)) 1.8 mg 0800 SQ 06/22/20 08:00 08/06/20 10:33 DC Melatonin (Melatonin) 3 mg HS PO 06/21/20 21:00 08/06/20 10:33 DC 5/30/21 21:06 Non-Formulary Medication (Olodaterol HCl (Striverdi Respimat)) 4 gm DAILY08 IH 06/22/20 08:00 08/06/20 10:33 DC Potassium Chloride (Klor-Con) 10 meq TID PO 06/21/20 21:00 06/27/20 16:15 DC 06/27/20 13:12 Quetiapine Fumarate (SEROquel) 300 mg DAILY08 PO 06/22/20 08:00 08/06/20 10:33 DC 08/06/20 08:22 Quetiapine Fumarate (SEROquel) 600 mg HS PO 06/21/20 21:00 08/06/20 10:33 DC 08/05/20 21:05 Hydroxyzine HCl (Atarax) 25 mg TID PO 06/21/20 21:00 08/06/20 10:33 DC 08/06/20 08:25 Albuterol Sulfate (Ventolin Hfa Inhaler) 2 puff PRN Q4HRS PRN INH SHORTNESS OF BREATH 06/21/20 17:15 08/06/20 10:33 DC Divalproex Sodium (Depakote Er) 500 mg QHS PO 06/21/20 21:00 06/24/20 17:35 DC 06/23/20 19:43 Divalproex Sodium (Depakote Er) 500 mg QHS PO 06/22/20 21:00 06/22/20 12:14 DC Sennosides (Senna) 8.6 mg BIDACBL PO 06/23/20 07:30 08/06/20 10:33 DC 08/06/20 08:22 Divalproex Sodium (Depakote Er) 750 mg QHS PO 06/24/20 21:00 06/25/20 19:31 DC 06/24/20 21:05 Divalproex Sodium (Depakote Er) 500 mg QHS PO 06/25/20 21:00 08/06/20 10:33 DC 08/05/20 21:06 Divalproex Sodium (Depakote Er) 250 mg QHS PO 06/25/20 21:00 08/06/20 10:33 DC 08/05/20 21:06 Furosemide (Lasix) 60 mg 1X ONCE PO 06/26/20 21:15 06/26/20 22:10 DC 06/27/20 05:51 Furosemide (Lasix) 40 mg DAILY PO 06/27/20 16:15 08/06/20 10:33 DC 08/06/20 08:23 Potassium Chloride (Klor-Con) 20 meq BID PO 06/27/20 21:00 08/06/20 10:33 DC 08/06/20 08:24 Fluoxetine HCl (PROzac) 60 mg DAILY08 PO 07/09/20 08:00 07/10/20 20:09 DC 07/10/20 09:09 Bupropion HCl (Wellbutrin Xl) 150 mg DAILY PO 07/09/20 09:00 07/10/20 20:09 DC 07/10/20 09:10 Olanzapine (ZyPREXA ZYDIS) 2.5 mg PRN Q2HR PRN PO PSYCHOSIS 07/10/20 20:00 08/06/20 10:33 DC 07/14/20 22:10 Fluoxetine HCl (PROzac) 80 mg DAILY PO 07/11/20 08:00 08/06/20 10:33 DC 08/06/20 08:22 Iohexol (Omnipaque 350 Mg/ml) 100 ml 1X ONCE IV 07/27/20 08:30 07/27/20 08:31 DC 07/27/20 08:43 Amoxicillin/ Clavulanate Potassium (Augmentin 875/ 125mg) 1 tab BID PO 07/27/20 21:00 08/05/20 22:00 DC 08/05/20 21:08 Lactobacillus Rhamnosus (Culturelle) 1 cap BID PO 07/27/20 21:00 08/06/20 10:33 DC 08/06/20 08:25 I have reviewed the current psychotropics carefully including drug interactions. Risk benefit ratio favors no change other than as noted in my dictated progress note. Diagnosis: Problems: (1) Schizoaffective disorder, bipolar type (2) Impulse control disorder, unspecified (3) Anxiety disorder, unspecified (4) Bipolar 1 disorder, mixed, partial remission MICHAEL CLARK MD Aug 10, 2020 09:13
== END 2020-08-06 10:10 | DRG 885 ==
LOC: GEROPSY 13:15
PROVIDERS: ADMIT Psychiatry & Neurology Psychiatry; ATTEND Psychiatry & Neurology Psychiatry
DX: F25.0 Schizoaffective disorder, bipolar type (principal); C34.90 Malignant neoplasm of unspecified part of unspecified bronchus or lung; J90 Pleural effusion, not elsewhere classified; R45.851 Suicidal ideations; F41.9 Anxiety disorder, unspecified; E03.9 Hypothyroidism, unspecified; F03.90 Unspecified dementia, unspecified severity, without behavioral disturbance, psychotic disturbance, mood disturbance, and anxiety; F60.3 Borderline personality disorder; F63.9 Impulse disorder, unspecified; I10 Essential (primary) hypertension; J44.9 Chronic obstructive pulmonary disease, unspecified; J84.10 Pulmonary fibrosis, unspecified; M19.011 Primary osteoarthritis, right shoulder; Z79.899 Other long term (current) drug therapy; Z85.118 Personal history of other malignant neoplasm of bronchus and lung; Z90.2 Acquired absence of lung [part of]
CPT/HCPCS: 36415; 71045; 71046; 71275; 76942; 80053; 80164; 82042; 82945; 83615; 83880; 84157; 85025; 85027; 89050; G0378; J3420; Q9967; 97110; 97116; 97530; 97535

== ENCOUNTER 2021-04-02 09:58 | Inpatient (IN) | payer OTHER ==
[~2021-04-02] VITALS: Ht 157.5 cm; Wt 77.8 kg
[~2021-04-02 09:58] MED LIST changes: +ACET325T21 PO; +DIVA250T14 PO; +DIVA500T2 PO; +FURO40TA4 PO; +MAG-115 PO; +MAGN24003 PO; +METH57CR17 TP; +OLAN5TAB99 PO; +POTA-112 PO; +POTA-121 PO; -POTA10TA5 PO; -TRIA15OI TP; +TRIA15OI32 TP
[2021-04-02] MEDS ORDERED: ENOX40DI SQ (10:32)
[2021-04-02] MEDS ORDERED: POLY17PO52 PO (10:32)
[2021-04-02] MEDS ORDERED: OLOD4MIS2 IH (10:32)
[2021-04-02] MEDS ORDERED: FERR325T14 PO (10:32)
[2021-04-02] MEDS ORDERED: clonazePAM 0.5 MG TABLET PO PRN (12:00)
[2021-04-02] MEDS ORDERED: VITS A & D/LANOLIN TOPICAL OINTMENT 42GM TUBE. TP PRN (12:00)
[2021-04-02] MEDS ORDERED: TRIAMCINOLONE ACETONIDE 0.1% TOPICAL OINTMENT 15GM TUBE. TP PRN (12:00)
[2021-04-02] MEDS ORDERED: ALBUTEROL SULFATE 2.5 MG/3 ML NEBU. IH PRN ×2 (12:00→13:00)
[2021-04-02] MEDS ORDERED: KETOCONAZOLE 2% SHAMPOO 120ML BOTTLE. TP PRN (12:00)
[2021-04-02] MEDS ORDERED: traMADol 50 MG TABLET PO PRN (12:00)
[2021-04-02] MEDS ORDERED: MAGNESIUM HYDROXIDE 2,400 MG/30 ML ORAL.SUSP. PO PRN (12:30)
[2021-04-02] MEDS ORDERED: MAG HYDROX/AL HYDROX/SIMETH 30 ML ORAL.SUSP PO PRN (12:30)
[2021-04-02 12:44] LABS: BASO # 0.1 x10^3/uL (0.0-0.2); BASO % 1 % (0-3); EOS # 0.4 x10^3/uL (0.0-0.7); EOS % 4 % (0-3); HEMOGLOBIN 10.2 g/dL (12.0-15.5); LYMPH # 0.9 x10^3/uL (1.0-4.8); LYMPH % 9 % (24-48); MEAN CORPUSCULAR HEMOGLOBIN 27 pg (25-35); MEAN CORPUSCULAR HGB CONC 32 g/dL (31-37); MEAN CORPUSCULAR VOLUME 86 fL (79-100); MONO # 0.6 x10^3/uL (0.0-1.1); MONO % 6 % (0-9); NEUT % 80 % (31-73); PLATELET COUNT 299 x10^3/uL (140-400); RED BLOOD COUNT 3.73 x10^6/uL (3.50-5.40)
[2021-04-02] MEDS ORDERED: ALBUTEROL SULFATE 8GM INHALER. INH PRN (12:45)
[2021-04-02] MEDS ORDERED: METHYL SALICYLATE/MENTHOL TOPICAL OINTMENT 57GM TUBE. TP PRN (12:45)
[2021-04-02 12:59] VITALS: BP 109/70
[2021-04-02] MEDS ORDERED: IPRATRPIUM/ALBUTEROL 0.5/2.5MG 3 ML NEBU. NEB PRN (13:00)
[2021-04-02] MEDS: DICLOFENAC SODIUM 1% TOPICAL GEL 100GM TUBE. TP SCH ×3 (13:00→20:37)
[2021-04-02] MEDS ORDERED: IPRA3AMP29 NEB (13:01)
[2021-04-02] MEDS ORDERED: UMEC62.5 IH (13:01)
[2021-04-02] MEDS ORDERED: ISOS30TA19 PO (13:01)
[2021-04-02] MEDS ORDERED: ALBU2.5V8 IH (13:01)
[2021-04-02 13:06] LABS: ALBUMIN 3.2 g/dL (3.4-5.0); ALBUMIN/GLOBULIN RATIO 0.9 (1.0-1.7); ALK PHOS 104 U/L (46-116); ALT (SGPT) 18 U/L (14-59); ANION GAP 8 (6-14); AST (SGOT) 21 U/L (15-37); BLOOD UREA NITROGEN 26 mg/dL (7-20); BUN/CREATININE RATIO 29 (6-20); CARBON DIOXIDE 31 mmol/L (21-32); CHLORIDE 98 mmol/L (98-107); CREATININE 0.9 mg/dL (0.6-1.0); GFR 62.5; GLUCOSE 98 mg/dL (70-99); MAGNESIUM 2.6 mg/dL (1.8-2.4); POTASSIUM 4.4 mmol/L (3.5-5.1); SODIUM 137 mmol/L (136-145); TOTAL BILIRUBIN 0.7 mg/dL (0.2-1.0); TOTAL PROTEIN 6.8 g/dL (6.4-8.2)
[2021-04-02 13:10] LABS: VAL ACID < 3 mcg/mL (50-100)
[2021-04-02] MEDS ORDERED: HYDR25TA PO (14:03)
[2021-04-02] MEDS ORDERED: hydrOXYzine HCL 25 MG TABLET PO PRN (14:15)
[2021-04-02] MEDS: FUROSEMIDE 80 MG TABLET PO SCH (16:00)
[2021-04-02] MEDS: IPRATROPIUM/ALBUTEROL 20/100mcg/INH INHALER. INH SCH ×2 (16:00→20:37)
[2021-04-02 16:12] LABS: BACTERIA,URINE MANY /HPF (0-FEW); CLARITY,URINE CLOUDY; COLOR,URINE YELLOW; GLUCOSE,URINE NEG (NEG); NITRITE,URINE POS (NEG); SQUAMOUS EPITHELIAL CELL,UR FEW /LPF; UROBILINOGEN,URINE 0.2 mg/dL (0.2 mg/dL); WBC,URINE >40 /HPF (0-4)
[2021-04-02 16:13] LABS: HYALINE CASTS, URINE OCC /HPF
[2021-04-02 17:28] VITALS: BP 104/69
[2021-04-02] MEDS: METOPROLOL TART IMMED RELEASE 25 MG TABLET. PO SCH (20:37)
[2021-04-02] MEDS: ATORVASTATIN CALCIUM 20 MG TABLET PO SCH (20:37)
[2021-04-02] MEDS: rOPINIRole 0.5 MG TABLET. PO SCH (20:37)
[2021-04-02] MEDS: QUEtiapine 100 MG TABLET. PO SCH (20:38)
[2021-04-02] MEDS: POTASSIUM CHLORIDE 20 MEQ TABLET.ER. PO SCH (20:38)
[2021-04-02] MEDS ORDERED: QUETIAPINE FUMARATE 600 MG PO SCH (21:00)
[2021-04-02] MEDS ORDERED: ENOXAPARIN 40 MG/0.4 ML SYRINGE. SQ SCH (21:00)
[2021-04-02] MEDS ORDERED: DIVALPROEX ER 250 MG TAB.ER.24H. PO SCH (21:00)
[2021-04-02] MEDS ORDERED: DOCUSATE SODIUM 100 MG CAPSULE PO SCH (21:00)
[2021-04-02] MEDS ORDERED: CALCIUM CARB/VIT D3 500/200 TABLET PO SCH (21:00)
[2021-04-03 01:23] LABS: HEMOGLOBIN A1C 5.4 % (4.8-5.6)
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
[2021-04-03] MEDS: LEVOTHYROXINE 75 MCG TABLET PO SCH (05:47)
[2021-04-03 06:10] VITALS: BP 120/78
[2021-04-03] MEDS ORDERED: SENNOSIDES 8.6 MG TABLET PO SCH (07:30)
[2021-04-03] MEDS ORDERED: FLUOXETINE HCL 80 MG PO SCH (08:00)
[2021-04-03] MEDS ORDERED: NON FORMULARY ITEM (Quetiapine Fumarate (Seroquel) 300 MG) PO SCH (08:00)
[2021-04-03] MEDS: ASPIRIN ENTERIC COATED 81 MG TABLET.DR. PO SCH (08:40)
[2021-04-03] MEDS: PANTOPRAZOLE 40 MG TABLET. PO SCH (08:40)
[2021-04-03] MEDS: METOPROLOL TART IMMED RELEASE 25 MG TABLET. PO SCH ×2 (08:40→20:11)
[2021-04-03] MEDS: ARIPiprazole 15 MG TABLET PO SCH (08:40)
[2021-04-03] MEDS: ISOSORBIDE MONONITRATE ER 30 MG TAB.ER.24H PO SCH (08:41)
[2021-04-03] MEDS: POTASSIUM CHLORIDE 20 MEQ TABLET.ER. PO SCH ×2 (08:41→20:10)
[2021-04-03] MEDS: DICLOFENAC SODIUM 1% TOPICAL GEL 100GM TUBE. TP SCH ×4 (08:42→20:09)
[2021-04-03] MEDS: IPRATROPIUM/ALBUTEROL 20/100mcg/INH INHALER. INH SCH ×4 (08:42→20:09)
[2021-04-03] MEDS: FLUTICASONE FUROATE 100mcg/INH ELLIPTA INHALER. INH SCH (08:42)
[2021-04-03] MEDS: FUROSEMIDE 80 MG TABLET PO SCH ×2 (08:45→16:42)
[2021-04-03] MEDS ORDERED: amLODIPine BESYLATE 5 MG TABLET PO SCH (09:00)
[2021-04-03] MEDS ORDERED: FERROUS SULFATE 325 MG TABLET. PO SCH (09:00)
[2021-04-03] MEDS ORDERED: NON FORMULARY ITEM (Umeclidinium Bromide (Incruse Ellipta) 62.5 MCG) IH SCH (09:00)
[2021-04-03] MEDS ORDERED: NON FORMULARY ITEM (Olodaterol HCl (Striverdi Respimat) 2 PUFF) IH SCH (09:00)
[2021-04-03] MEDS ORDERED: FUROSEMIDE 40 MG TABLET PO SCH (09:00)
[2021-04-03 15:57] VITALS: BP 101/61
[2021-04-03] MEDS ORDERED: CHOLECALCIFEROL (VITAMIN D3) 50,000 UNIT CAPSULE PO SCH (16:00)
[2021-04-03] MEDS: ATORVASTATIN CALCIUM 20 MG TABLET PO SCH (20:09)
[2021-04-03] MEDS: rOPINIRole 0.5 MG TABLET. PO SCH (20:09)
[2021-04-03] MEDS: QUEtiapine 100 MG TABLET. PO SCH (20:10)
[2021-04-03] MEDS: DIVALPROEX SODIUM 125 MG TABLET.DR. PO SCH (20:12)
[2021-04-03 20:16] LABS: CHOLESTEROL/HDL RATIO 2.3; THYROID STIM HORMONE (TSH) 1.592 uIU/mL (0.358-3.740)
[2021-04-03 23:23] LABS: THYROXINE 7.9 ug/dL (4.5-12.0)
--- NOTE | 2021-04-04 03:35 | PN ---
DATE: 04/03/2021 SUBJECTIVE: The patient was seen today, met with the staff, chart reviewed and also covering for Dr. Escalante. The patient's behavior has improved, is still angry, having some mood swings and also exhibiting some paranoid ideation. She thinks her family is stealing money from her and also not trusting anyone. The patient also is not comfortable talking about her problems. OBSERVATION: VITAL SIGNS: Temperature 98.8, blood pressure 101/61, pulse 78, respirations 20, O2 sat 98%. The patient's sleep improved. Staff reports no major behavior problems. The patient tends to be angry, irritable and traylor and admits she had problems with mood swings most of her life. LABORATORY DATA: The patient's lab reviewed. Hemoglobin was 10.2, neutrophil was 80%. The patient's sodium was 137, BUN 26. BUN/creatinine ratio 29. CURRENT MEDICATIONS: The patient's current medications include Depakote 125 mg daily and 375 mg at night, started today. The patient is also on Abilify 15 mg daily, fluoxetine 30 mg daily, Seroquel 100 mg at night. The patient is not having any side effects to the medications. ASSESSMENT: 1. Schizoaffective disorder, depressed, with psychotic symptoms. 2. Generalized anxiety disorder. 3. Posttraumatic stress disorder. 4. Mood disorder, unspecified. PLAN: Continue with the current treatment plan. LENGTH OF STAY: [address] BOWEN/DOLORES DR: Azul TID: [id number]
[2021-04-04] MEDS: LEVOTHYROXINE 75 MCG TABLET PO SCH (05:24)
[2021-04-04 05:58] VITALS: BP 105/70
[2021-04-04] MEDS: FUROSEMIDE 80 MG TABLET PO SCH ×2 (09:12→15:48)
[2021-04-04] MEDS: DIVALPROEX SODIUM 125 MG TABLET.DR. PO SCH ×2 (09:12→19:50)
[2021-04-04] MEDS: POTASSIUM CHLORIDE 20 MEQ TABLET.ER. PO SCH ×2 (09:13→19:49)
[2021-04-04] MEDS: ASPIRIN ENTERIC COATED 81 MG TABLET.DR. PO SCH (09:13)
[2021-04-04] MEDS: ISOSORBIDE MONONITRATE ER 30 MG TAB.ER.24H PO SCH (09:13)
[2021-04-04] MEDS: PANTOPRAZOLE 40 MG TABLET. PO SCH (09:13)
[2021-04-04] MEDS: METOPROLOL TART IMMED RELEASE 25 MG TABLET. PO SCH ×2 (09:15→19:51)
[2021-04-04] MEDS: IPRATROPIUM/ALBUTEROL 20/100mcg/INH INHALER. INH SCH ×4 (09:17→19:52)
[2021-04-04] MEDS: FLUTICASONE FUROATE 100mcg/INH ELLIPTA INHALER. INH SCH (09:18)
[2021-04-04] MEDS: ARIPiprazole 15 MG TABLET PO SCH (09:19)
[2021-04-04] MEDS: DICLOFENAC SODIUM 1% TOPICAL GEL 100GM TUBE. TP SCH ×4 (09:39→19:53)
[2021-04-04 16:24] VITALS: BP 103/67
--- NOTE | 2021-04-04 18:01 | TX PLAN ---
Interdisciplinary Tx Plan Admission Information Apr 02, 2021 at 11:55 Legal Status (on Admission): Voluntary DPOA/Guardian Name: Pt is a self-sign Contact Other Contact Name: [facility] Other Contact Verified Code Status: Full Code Allergies: Coded Allergies: chlorpromazine (Verified Allergy, Unknown, 06/07/20) diphenhydramine (Verified Allergy, Unknown, 06/07/20) lisinopril (Verified Allergy, Unknown, 06/07/20) simvastatin (Verified Allergy, Unknown, 06/07/20) Diagnoses Primary Diagnosis: Schizoaffective D/O Reasons for Admission: Suicidal attempt, Hallucinations, Suicidal ideation, Suspicious/paranoid, Poor impulse control Problem in Patient's Words: The staff told me what to do and say to get out of there. There's a handful of them that are an issue. Additional Admission Comments: According to the intake, pt has labile mood, crying, SI with attempt to hurt self with a fork in the dining room. Pt reports auditory hallunications, hearing voices, angry and threatening to jump out of a window. Problems Active Problems: Flat affect Inactive Problems: No hallucinations No SI Medication compliant Pt Strengths/Limitations Ability for [place]: Poor Cognitive Functioning/Ability: Fair Physical Health: Poor Social Skills: Fair Stability in Family: Fair Stability in School/Work: Poor Verbal Skills: Fair Discharge Criteria Discharge Criteria: No need for close observ., Adequate arrangements @DC, Improved behavior, Improved mood/thought Preliminary Discharge Plan Preliminary DC Plan: Current Living Arrange. Special Precautions Fall Risk: Low Initial D/C Plan Pt to return to [facility] Identified Discharge Needs: Pt will plan to return to [facility] once stable. Currently Utilized Resources Currently Utilized Resources/P: Services through the [facility]: case management, psychiatry, primary care, counseling Identified Problems/Hx/Goals Objectives/Short-Term Goals Short Term Goals: Dec. Anxiety/Panic, Dec. Hallucination/Delus, Dec. Symp. Depression, Improved Social Skills, Medication Stabilization Short Term Goals in Patient's: I want to not go back to [place] if I can help it. Interventions/Frequency Staff Interventions/Frequency&: Psychiatrist to assess pt at least 3x per week for medicaiton management. Social work to assess pt at least 2x per week to identify barriers to care and finalize discharge planning. [place] to assess medication effects, behavior modification and completion of 15 minute checks. Encourage participation in group activities (if applicable) or 1:1 engagement based of activity dept. goals. History Vocational History: Pt has not been able to fully work due to her psychiatric hx and having "breakdowns". 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 Community Follow-up Continue services through [facility]. Treatment Plan Explained Patient/Third Mate had this treatment plan explained to him/her as indicated by the signature below and has been given the opportunity to ask questions and make suggestions: Date: Patient/Third Mate Signature: Patient/Third Mate Decline: No (Pt is a self-sign and active in her care.) FROY KAISER Apr 04, 2021 18:01
[2021-04-04] MEDS: rOPINIRole 0.5 MG TABLET. PO SCH (19:48)
[2021-04-04] MEDS: QUEtiapine 100 MG TABLET. PO SCH (19:51)
[2021-04-04] MEDS: ATORVASTATIN CALCIUM 20 MG TABLET PO SCH (19:51)
[2021-04-05] MEDS: LEVOTHYROXINE 75 MCG TABLET PO SCH (05:55)
[2021-04-05] MEDS: hydrOXYzine HCL 25 MG TABLET PO PRN ×2 (05:55→19:39)
[2021-04-05 06:18] VITALS: BP 119/74
--- NOTE | 2021-04-05 06:27 | EKG ---
[address] [address] Test Date: 2021-04-03 Test Time: 11:19:33 Pat Name: MANJINDER OMALLEY Department: Room: [address] [place] [address] Gender: F Flat Sorter Processor: : [id number] Requested By: FIDEL NICKERSON Order Number: [id number] Reading MD: Norm Steiner Measurements Intervals [place] Rate: P: [place]: QRS: QRSD: T: QT: QTc: Interpretive Statements SINUS RHYTHM T WAVE ABNORMALITY INFERIOR AND ANTERIOR LEADS Electronically Signed On 04-05-2021 13:13:36 UTILIZATION REVIEWER by Norm Steiner
[2021-04-05] MEDS: ISOSORBIDE MONONITRATE ER 30 MG TAB.ER.24H PO SCH (08:09)
[2021-04-05] MEDS: ARIPiprazole 15 MG TABLET PO SCH (08:09)
[2021-04-05] MEDS: FUROSEMIDE 80 MG TABLET PO SCH ×2 (08:09→16:00)
[2021-04-05] MEDS: DIVALPROEX SODIUM 125 MG TABLET.DR. PO SCH ×2 (08:09→19:38)
[2021-04-05] MEDS: PANTOPRAZOLE 40 MG TABLET. PO SCH (08:09)
[2021-04-05] MEDS: POTASSIUM CHLORIDE 20 MEQ TABLET.ER. PO SCH ×2 (08:09→19:39)
[2021-04-05] MEDS: ASPIRIN ENTERIC COATED 81 MG TABLET.DR. PO SCH (08:10)
[2021-04-05] MEDS: FLUTICASONE FUROATE 100mcg/INH ELLIPTA INHALER. INH SCH (08:12)
[2021-04-05] MEDS: IPRATROPIUM/ALBUTEROL 20/100mcg/INH INHALER. INH SCH ×4 (08:12→19:40)
[2021-04-05] MEDS: DICLOFENAC SODIUM 1% TOPICAL GEL 100GM TUBE. TP SCH ×4 (08:15→19:40)
[2021-04-05] MEDS: METOPROLOL TART IMMED RELEASE 25 MG TABLET. PO SCH ×2 (08:16→19:34)
[2021-04-05 16:07] VITALS: BP 90/60
[2021-04-05] MEDS: rOPINIRole 0.5 MG TABLET. PO SCH (19:38)
[2021-04-05] MEDS: QUEtiapine 100 MG TABLET. PO SCH (19:39)
[2021-04-05] MEDS: ATORVASTATIN CALCIUM 20 MG TABLET PO SCH (19:39)
--- NOTE | 2021-04-06 02:41 | PN ---
DATE: 04/05/2021 SUBJECTIVE: The patient was seen today, met with the staff. Chart reviewed. I am covering for Dr. Escalante. Staff reports increased anxiety, restlessness, panic attacks, and also periods of depression and also making suicidal statements. LABORATORY DATA: The patient's lab reviewed. OBSERVATION: VITAL SIGNS: Temperature 96.9, blood pressure 119/74, pulse 72, respirations 18, and O2 sat 100%. GENERAL: Slept about 6 hours last night and the patient's appetite is fair. The patient continues to be irritable, traylor, upset with the staff, also upset with her family and the patient also exhibits some paranoid ideation, not trusting anyone. The patient also complains she [facility] because they would not give her BiPAP machine. CURRENT MEDICATIONS: Depakote 125 mg daily and 350 mg at night, Abilify 15 mg daily, fluoxetine 30 mg daily, Seroquel 100 mg at night. The patient is not having any side effects to medications. The patient has no other physical complaints. ASSESSMENT: 1. Schizoaffective disorder, depressed, with psychotic symptoms. 2. Generalized anxiety disorder. 3. Post-traumatic stress disorder . 4. Mood disorder, unspecified. PLAN: Continue with treatment. LENGTH OF STAY: 5-[address]: Azul TID: [id number]
[2021-04-06 05:47] VITALS: BP 94/61
[2021-04-06] MEDS: LEVOTHYROXINE 75 MCG TABLET PO SCH (06:00)
[2021-04-06] MEDS: ASPIRIN ENTERIC COATED 81 MG TABLET.DR. PO SCH (09:03)
[2021-04-06] MEDS: ISOSORBIDE MONONITRATE ER 30 MG TAB.ER.24H PO SCH (09:03)
[2021-04-06] MEDS: PANTOPRAZOLE 40 MG TABLET. PO SCH (09:03)
[2021-04-06] MEDS: FUROSEMIDE 80 MG TABLET PO SCH (09:03)
[2021-04-06] MEDS: ARIPiprazole 15 MG TABLET PO SCH (09:03)
[2021-04-06] MEDS: DIVALPROEX SODIUM 125 MG TABLET.DR. PO SCH ×2 (09:04→20:23)
[2021-04-06] MEDS: POTASSIUM CHLORIDE 20 MEQ TABLET.ER. PO SCH ×2 (09:04→20:24)
[2021-04-06] MEDS: FLUTICASONE FUROATE 100mcg/INH ELLIPTA INHALER. INH SCH (09:05)
[2021-04-06] MEDS: METOPROLOL TART IMMED RELEASE 25 MG TABLET. PO SCH ×2 (09:05→20:25)
[2021-04-06] MEDS: IPRATROPIUM/ALBUTEROL 20/100mcg/INH INHALER. INH SCH ×4 (09:05→20:25)
[2021-04-06] MEDS: DICLOFENAC SODIUM 1% TOPICAL GEL 100GM TUBE. TP SCH ×4 (09:07→20:25)
[2021-04-06 15:20] VITALS: BP 107/74
[2021-04-06] MEDS: ATORVASTATIN CALCIUM 20 MG TABLET PO SCH (20:23)
[2021-04-06] MEDS: rOPINIRole 0.5 MG TABLET. PO SCH (20:24)
[2021-04-06] MEDS: QUEtiapine 100 MG TABLET. PO SCH (20:24)
--- NOTE | 2021-04-06 23:17 | PN ---
DATE: 04/06/2021 SUBJECTIVE: The patient was seen today, met with the staff. Chart was reviewed. I am covering for Dr. Escalante. The patient is still paranoid, withdrawn, angry and not trusting anyone. The patient also admits to feeling depressed and not happy with herself. The patient has been medication compliant. The patient is not having any psychotic symptoms at this time. OBSERVATION: VITAL SIGNS: Temperature 98.0, blood pressure 94/61, pulse 70, respirations 22, O2 sat 91%. GENERAL: Slept about 6 hours last night and the appetite has improved. CURRENT MEDICATIONS: Include Depakote 125 mg in the morning and 350 mg at night, Abilify 15 mg daily, fluoxetine 30 mg daily and Seroquel 100 mg at night. The patient is not having any side effects to medications. The patient is also not having any physical complaints. ASSESSMENT: 1. Schizoaffective disorder with psychotic symptoms. 2. Generalized anxiety disorder. 3. Posttraumatic stress disorder. 4. Mood disorder, unspecified. PLAN: To continue with the treatment. LENGTH OF STAY: Five to seven days. NED DR: Azul TID: [id number]
[2021-04-07] MEDS: LEVOTHYROXINE 75 MCG TABLET PO SCH (03:06)
[2021-04-07 06:42] VITALS: BP 94/61
[2021-04-07] MEDS: FLUTICASONE FUROATE 100mcg/INH ELLIPTA INHALER. INH SCH (08:47)
[2021-04-07] MEDS: IPRATROPIUM/ALBUTEROL 20/100mcg/INH INHALER. INH SCH ×4 (08:47→20:02)
[2021-04-07] MEDS: ARIPiprazole 15 MG TABLET PO SCH (08:48)
[2021-04-07] MEDS: FUROSEMIDE 80 MG TABLET PO SCH (08:48)
[2021-04-07] MEDS: ASPIRIN ENTERIC COATED 81 MG TABLET.DR. PO SCH (08:48)
[2021-04-07] MEDS: DICLOFENAC SODIUM 1% TOPICAL GEL 100GM TUBE. TP SCH ×4 (08:48→20:03)
[2021-04-07] MEDS: METOPROLOL TART IMMED RELEASE 25 MG TABLET. PO SCH ×2 (08:49→20:09)
[2021-04-07] MEDS: DIVALPROEX SODIUM 125 MG TABLET.DR. PO SCH ×2 (08:49→20:03)
[2021-04-07] MEDS: PANTOPRAZOLE 40 MG TABLET. PO SCH (08:49)
[2021-04-07] MEDS: ISOSORBIDE MONONITRATE ER 30 MG TAB.ER.24H PO SCH (08:49)
[2021-04-07] MEDS: POTASSIUM CHLORIDE 20 MEQ TABLET.ER. PO SCH ×2 (08:49→20:05)
[2021-04-07 09:33] LABS: BASO % 1 % (0-3); EOS # 0.3 x10^3/uL (0.0-0.7); EOS % 4 % (0-3); HEMATOCRIT 31.4 % (36.0-47.0); HEMOGLOBIN 10.2 g/dL (12.0-15.5); LYMPH % 12 % (24-48); MEAN CORPUSCULAR HEMOGLOBIN 28 pg (25-35); MEAN CORPUSCULAR HGB CONC 32 g/dL (31-37); MEAN CORPUSCULAR VOLUME 85 fL (79-100); MONO # 0.7 x10^3/uL (0.0-1.1); MONO % 9 % (0-9); NEUT # 5.8 x10^3uL (1.8-7.7); NEUT % 75 % (31-73); PLATELET COUNT 284 x10^3/uL (140-400); WHITE BLOOD COUNT 7.7 x10^3/uL (4.0-11.0)
[2021-04-07 09:40] LABS: ALBUMIN 3.2 g/dL (3.4-5.0); ALBUMIN/GLOBULIN RATIO 0.8 (1.0-1.7); ALK PHOS 90 U/L (46-116); ALT (SGPT) 21 U/L (14-59); ANION GAP 6 (6-14); AST (SGOT) 19 U/L (15-37); BLOOD UREA NITROGEN 26 mg/dL (7-20); BUN/CREATININE RATIO 33 (6-20); CALCIUM 9.3 mg/dL (8.5-10.1); CARBON DIOXIDE 32 mmol/L (21-32); CHLORIDE 97 mmol/L (98-107); CREATININE 0.8 mg/dL (0.6-1.0); GFR 71.5; GLUCOSE 76 mg/dL (70-99); POTASSIUM 4.6 mmol/L (3.5-5.1); SODIUM 135 mmol/L (136-145); TOTAL BILIRUBIN 0.5 mg/dL (0.2-1.0); TOTAL PROTEIN 7.2 g/dL (6.4-8.2)
[2021-04-07 10:24] LABS: VAL ACID 40 mcg/mL (50-100)
[2021-04-07 15:54] VITALS: BP 98/63
--- NOTE | 2021-04-07 18:43 | CONS ---
DATE OF CONSULTATION: 04/06/2021 REASON FOR CONSULTATION: Medical management. HISTORY OF PRESENT ILLNESS: The patient is a 65-year-old female patient, a resident at [facility] in [place], who was [facility] on account of having labile mood, crying, suicidal ideation with attempt to hurt herself with fork. She is angry and threatening to jump from window, all this in a background schizoaffective disorder. PAST MEDICAL HISTORY: Significant for hypertension, hypothyroidism, COPD, chronic low back pain, bilateral lower extremity edema, borderline personality, hypercholesterolemia, venous stasis, neurodermatitis, obstructive sleep apnea, pulmonary fibrosis, malignant neoplasm of the upper lobe of the left lung and chronic constipation. PAST SURGICAL HISTORY: Significant for left upper lobe lobectomy as well as knee surgery, although she was unable to have her left knee replaced. ALLERGIES: She is allergic to THORAZINE. MEDICATIONS: She is currently on following medications: She is on ipratropium bromide, albuterol sulfate, DuoNeb 3 mL by nebulizer 4 times a day, Incruse Ellipta 1 inhalation once a day, albuterol sulfate 1 puff every 4 hours as needed, ____ 2 puffs daily. She is on atorvastatin calcium 20 mg at bedtime, isosorbide mononitrate 30 mg daily, metoprolol tartrate 12.5 mg twice a day, aspirin 81 mg once a day, diclofenac sodium 2 grams apply topically 4 times a day to both knees, fluoxetine 30 mg p.o. daily, aripiprazole 15 mg once a day, quetiapine fumarate 100 mg at bedtime, hydroxyzine 25 mg every 8 hours as needed, ropinirole 0.5 mg at bedtime, potassium chloride 20 mEq twice a day and furosemide she takes 80 mg daily, polyethylene glycol 17 grams daily p.r.n. for constipation, Protonix 40 mg once a day and levothyroxine sodium 75 mcg once a day. FAMILY HISTORY: Noncontributory. SOCIAL HISTORY: She is currently residing at [facility]. She apparently is a smoker. She has ____ smoked in the last 5 years. Does not drink alcohol or use recreational drugs. REVIEW OF SYSTEMS: As per history of present illness. PHYSICAL EXAMINATION: GENERAL: When I examined her this afternoon, she was sitting comfortably in her wheelchair in no apparent respiratory distress. She was pale, not jaundiced, cyanosed or thyromegaly. No jugular venous distention. No limb edema. VITAL SIGNS: Her heart rate was 66, blood pressure was 107/74, her temperature was 98.7, respiratory rate was 18 and oxygen saturation was 97% on 5 liters of oxygen. HEAD, EYES, EARS, NOSE, AND THROAT: Normocephalic, atraumatic. NECK: Supple. HEART: Showed normal first and second heart sounds. No gallop, rub or murmur. CHEST: Clear to auscultation, no crepitation or rhonchi. ABDOMEN: Distended, soft, nontender. NEUROLOGIC: She is awake, alert and responding appropriately. All her cranial nerves are intact. She moves all extremities without difficulty, although she is mostly bedbound. She ambulates with a walker. LABORATORY DATA: Showed a serum sodium 137, potassium 4.4, chloride 98, bicarbonate 31, anion gap of 8, BUN 26, creatinine 0.9. Estimated GFR was 62 mL per minute. Her glucose was 98, calcium was 9, magnesium was 2.6. Total bilirubin, AST, ALT, alkaline phosphatase were normal. Total protein 6.8, albumin 3.2. Her white cell count was 10,000, hemoglobin 10, hematocrit 32, MCV 86 and platelet count 299,000 with normal manual differential. Her D-dimer was 2.45. Urinalysis showed the patient has yellow, cloudy urine with a pH of 7, specific gravity of 1.015. The urine was negative for protein, glucose, ketones, small amount of blood, positive for nitrite and there is large amount of leukocyte esterase, 1-2 rbc's, more than 40 wbc's and many bacteria. Her toxic screen showed her valproic acid to be less than 30 mcg per mL. Her Treponema pallidum antibodies were nonreactive and SARS-CoV-2 by PCR was negative twice. Her urine has grown less than 10,000 colony forming ____ of normal genitourinary ashia, nothing indicative of infection. ASSESSMENT AND PLAN: In summary, this is a 65-year-old female patient, a resident at [facility], who was admitted to [facility] for labile mood, crying, have suicidal ideation and attempt to hurt herself with a fork. She is angry, threatening to jump from window, all this in a background of schizoaffective disorder. All in all, the patient seems to be medically stable. Her heart rate and blood pressure seemed to be somewhat on the lower side, although the patient herself is asymptomatic. I will probably cut down on her furosemide to 40 mg once a day and monitor her labs closely. NIMA/ISHAN DR: Lore TID: [id number]
[2021-04-07] MEDS: rOPINIRole 0.5 MG TABLET. PO SCH (20:03)
[2021-04-07] MEDS: QUEtiapine 100 MG TABLET. PO SCH (20:03)
[2021-04-07] MEDS: ATORVASTATIN CALCIUM 20 MG TABLET PO SCH (20:04)
--- NOTE | 2021-04-07 20:21 | PN ---
DATE: 04/07/2021 SUBJECTIVE: The patient was seen today, met with the staff. Chart reviewed and covering for Dr. Escalante. The patient showed some improvement, continues to have fluctuating mood, being suspicious and paranoid at times and trust issues. The patient tends to isolate herself in a room. OBSERVATION: VITAL SIGNS: Temperature 98.9, blood pressure 94/61, pulse 88, respirations 18 and O2 sat 90%. GENERAL: Slept about 4 hours last night. The patient's appetite is fair. LABORATORY DATA: The patient's lab reviewed. CURRENT MEDICATIONS: Depakote 125 mg in the morning and 350 at night, Abilify 15 mg daily, fluoxetine 30 mg daily and Seroquel 100 mg at night. She is not having any side effects to medications. ASSESSMENT: Schizoaffective disorder with psychotic symptoms. PLAN: To continue with the treatment. LENGTH OF STAY: 5 to [address]: Azul TID: [id number]
[2021-04-08 05:51] VITALS: BP 105/69
[2021-04-08] MEDS: LEVOTHYROXINE 75 MCG TABLET PO SCH (05:53)
[2021-04-08] MEDS: ISOSORBIDE MONONITRATE ER 30 MG TAB.ER.24H PO SCH (08:29)
[2021-04-08] MEDS: ASPIRIN ENTERIC COATED 81 MG TABLET.DR. PO SCH (08:30)
[2021-04-08] MEDS: POTASSIUM CHLORIDE 20 MEQ TABLET.ER. PO SCH ×2 (08:30→21:00)
[2021-04-08] MEDS: METOPROLOL TART IMMED RELEASE 25 MG TABLET. PO SCH ×2 (08:30→21:03)
[2021-04-08] MEDS: PANTOPRAZOLE 40 MG TABLET. PO SCH (08:31)
[2021-04-08] MEDS: ARIPiprazole 15 MG TABLET PO SCH (08:31)
[2021-04-08] MEDS: DIVALPROEX SODIUM 125 MG TABLET.DR. PO SCH (08:31)
[2021-04-08] MEDS: FUROSEMIDE 80 MG TABLET PO SCH (08:31)
[2021-04-08] MEDS: FLUTICASONE FUROATE 100mcg/INH ELLIPTA INHALER. INH SCH (08:32)
[2021-04-08] MEDS: DICLOFENAC SODIUM 1% TOPICAL GEL 100GM TUBE. TP SCH ×4 (08:32→21:01)
[2021-04-08] MEDS: IPRATROPIUM/ALBUTEROL 20/100mcg/INH INHALER. INH SCH ×4 (08:32→21:01)
[2021-04-08] MEDS: hydrOXYzine HCL 25 MG TABLET PO PRN (14:30)
[2021-04-08 15:45] VITALS: BP 99/63
[2021-04-08] MEDS: rOPINIRole 0.5 MG TABLET. PO SCH (21:01)
[2021-04-08] MEDS: DIVALPROEX SODIUM 250 MG TABLET.DR. PO SCH (21:02)
[2021-04-08] MEDS: ATORVASTATIN CALCIUM 20 MG TABLET PO SCH (21:02)
[2021-04-08] MEDS: QUEtiapine 100 MG TABLET. PO SCH (21:03)
--- NOTE | 2021-04-08 21:44 | PDOC ---
Exam Note: [place] Note: Please also refer to the separate dictated note~for this date of service dictated separately.~Patient seen individually. Discussed the patient with Nursing staff reviewed the chart.~Reviewed interim history and current functioning. Reviewed vital signs,~Labs/ Radiology~and current medications noted below. Continue current treatment with the changes noted in the dictated addendum note Assessment: Vital Signs/I&O: Vital Signs Date Time Temp Pulse Resp B/P (MAP) Pulse Ox O2 Delivery O2 Flow Rate FiO2 04/08/21 21:03 82 99/63 04/08/21 15:45 98.4 20 95 04/08/21 05:51 5.0 04/07/21 06:42 Nasal Cannula I & O 04/07/21 04/07/21 04/08/21 15:00 23:00 07:00 Intake Total 620 ml 360 ml Balance 620 ml 360 ml Current Medications: Meds: Current Medications Medications (Trade) Dose Ordered Sig/Indra Route PRN Reason Start Time Stop Time Status Last Admin Dose Admin Albuterol Sulfate (Ventolin) 1 mg PRN Q4HRS PRN IH FOR ASTHMA 04/02/21 12:00 UNV Amlodipine Besylate (Norvasc) 5 mg DAILY PO 04/03/21 09:00 04/02/21 13:08 DC Aripiprazole (Abilify) 15 mg DAILY PO 04/03/21 09:00 04/08/21 08:31 Aspirin (Aspirin Enteric Coated) 81 mg DAILY PO 04/03/21 09:00 04/08/21 08:30 Atorvastatin Calcium (Lipitor) 20 mg QHS PO 04/02/21 21:00 04/08/21 21:02 Calcium/Vitamin D (Oscal D 500mg/ 200uts) 1 tab BID PO 04/02/21 21:00 04/02/21 13:08 DC Vitamin D (Vitamin D3) 50,000 unit QWE PO 04/03/21 16:00 04/02/21 13:08 DC Clonazepam (KlonoPIN) 0.5 mg PRN BID PRN PO ANXIETY / AGITATION 04/02/21 12:00 Cancel Diclofenac Sodium (Voltaren) 2 joesph QID TP 04/02/21 13:00 04/08/21 21:01 Divalproex Sodium (Depakote Er) 500 mg HS PO 04/02/21 21:00 04/02/21 13:08 DC Docusate Sodium (Colace) 100 mg BID PO 04/02/21 21:00 04/02/21 13:08 DC Enoxaparin Sodium (Lovenox 40mg Syringe) 40 mg HS SQ 04/02/21 21:00 04/02/21 13:08 DC Ferrous Sulfate (Feosol) 325 mg DAILY PO 04/03/21 09:00 04/02/21 13:08 DC Furosemide (Lasix) 40 mg DAILY PO 04/03/21 09:00 04/02/21 13:08 DC Isosorbide Mononitrate (Imdur) 30 mg DAILY08 PO 04/03/21 08:00 04/08/21 08:29 Ketoconazole (Nizoral 2% Shampoo) 1 joesph PRN DAILY PRN TP DANDRUFF 04/02/21 12:00 04/02/21 13:08 DC Levothyroxine Sodium (Synthroid) 75 mcg DAILY06 PO 04/03/21 06:00 04/08/21 05:53 Metoprolol Tartrate (Lopressor) 12.5 mg BID PO 04/02/21 21:00 04/08/21 08:30 Olanzapine (ZyPREXA ZYDIS) 2.5 mg PRN Q2HR PRN PO ANXIETY / AGITATION 04/02/21 12:00 04/02/21 13:08 DC Pantoprazole Sodium (Protonix) 40 mg DAILY08 PO 04/03/21 08:00 04/08/21 08:31 Polyethylene Glycol (miraLAX) 17 gm PRN BID PRN PO CONSTIPATION, 1ST CHOICE 04/02/21 12:00 Potassium Chloride (Klor-Con) 20 meq BID PO 04/02/21 21:00 04/08/21 21:00 Ropinirole HCl (Requip) 0.5 mg HS PO 04/02/21 21:00 04/08/21 21:01 Sennosides (Senna) 8.6 mg BIDACBL PO 04/03/21 07:30 04/02/21 13:08 DC Tramadol HCl (Ultram) 50 mg PRN Q6HRS PRN PO MOD -SEV PAIN 04/02/21 12:00 04/02/21 13:08 DC Triamcinolone Acetonide (Kenalog) 1 joesph PRN Q12HR PRN TP ITCHING 04/02/21 12:00 04/02/21 13:08 DC Vitamin A/Vitamin D (Vitamin A & D Ointment) 1 joesph PRN Q1HR PRN TP DRY SKIN / SCALING 04/02/21 12:00 04/02/21 13:08 DC Non-Formulary Medication (Fluoxetine Hcl (Prozac)) 80 mg DAILY08 PO 04/03/21 08:00 04/02/21 13:08 DC Multi-Ingredient Ointment (Analgesic [place]) 1 joesph PRN QID PRN TP MUSCLE PAIN 04/02/21 12:45 Non-Formulary Medication (Olodaterol HCl (Striverdi Respimat)) 2 puff DAILY IH 04/03/21 09:00 04/02/21 13:08 DC Non-Formulary Medication (Quetiapine Fumarate (Seroquel)) 300 mg DAILY08 PO 04/03/21 08:00 04/02/21 13:08 DC Non-Formulary Medication (Quetiapine Fumarate (Seroquel)) 600 mg HS PO 04/02/21 21:00 04/02/21 13:08 DC Acetaminophen (Tylenol) 650 mg PRN Q6HRS PRN PO MILD PAIN / TEMP > 100.3'F 04/02/21 12:30 Al Hydroxide/Mg Hydroxide (Mylanta Plus Xs) 15 ml PRN AFTMEALHC PRN PO DYSPEPSIA 04/02/21 12:30 Magnesium Hydroxide (Milk Of Magnesia) 2,400 mg PRN QHS PRN PO CONSTIPATION, 2ND CHOICE 04/02/21 12:30 Albuterol Sulfate (Ventolin Hfa Inhaler) 1 puff PRN Q4HRS PRN INH SOA 04/02/21 12:45 04/04/21 09:12 Albuterol Sulfate (Ventolin) 1 mg PRN Q4HRS PRN IH FOR ASTHMA 04/02/21 13:00 UNV Albuterol/ Ipratropium (Duoneb) 3 ml PRN QID PRN NEB copd 04/02/21 13:00 UNV Non-Formulary Medication (Umeclidinium [place] (Incruse Ellipta)) 62.5 mcg DAILY IH 04/03/21 09:00 UNV Furosemide (Lasix) 80 mg BID94 PO 04/02/21 16:00 04/06/21 16:01 DC 04/06/21 09:03 Fluoxetine HCl (PROzac) 30 mg DAILY08 PO 04/03/21 08:00 04/08/21 08:30 Quetiapine Fumarate (SEROquel) 100 mg HS PO 04/02/21 21:00 04/08/21 21:03 Albuterol/ Ipratropium (Combivent Respimat 20-100 Mcg) 1 puff RTQID INH 04/02/21 16:00 04/08/21 21:01 Fluticasone Furoate (ARNUITY 100mcg ELLIPTA) 1 puff DAILY INH 04/03/21 09:00 04/08/21 08:32 Hydroxyzine HCl (Atarax) 25 mg PRN Q8HRS PRN PO ANXIETY / AGITATION 04/02/21 14:15 04/04/21 17:36 DC Divalproex Sodium (Depakote) 125 mg DAILY PO 04/04/21 09:00 04/08/21 17:07 DC 04/08/21 08:31 Divalproex Sodium (Depakote) 375 mg HS PO 04/03/21 21:00 04/08/21 17:07 DC 04/07/21 20:03 Trazodone HCl (Desyrel) 50 mg PRN QHS PRN PO INSOMNIA 04/04/21 17:15 Hydroxyzine HCl (Atarax) 50 mg PRN Q6HRS PRN PO anxiety 04/04/21 17:15 04/08/21 14:30 Furosemide (Lasix) 80 mg DAILY PO 04/07/21 09:00 04/08/21 08:31 Divalproex Sodium (Depakote) 500 mg HS PO 04/08/21 21:00 04/08/21 21:02 Divalproex Sodium (Depakote) 250 mg DAILY PO 04/09/21 09:00 Current Medications Medications (Trade) Dose Ordered Sig/Indra Route PRN Reason Start Time Stop Time Status Last Admin Dose Admin Divalproex Sodium (Depakote) 500 mg HS PO 04/08/21 21:00 04/08/21 21:02 I have reviewed the current psychotropics carefully including drug interactions. Risk benefit ratio favors no change other than as noted in my dictated progress note. Diagnosis: Problems: (1) Schizoaffective disorder, bipolar type (2) Impulse control disorder, unspecified (3) Anxiety disorder, unspecified MICHAEL CLARK MD Apr 08, 2021 21:44
[2021-04-09] MEDS: LEVOTHYROXINE 75 MCG TABLET PO SCH (05:18)
[2021-04-09 06:06] VITALS: BP 96/61
[2021-04-09] MEDS: METOPROLOL TART IMMED RELEASE 25 MG TABLET. PO SCH ×2 (09:00→20:43)
[2021-04-09] MEDS: FLUTICASONE FUROATE 100mcg/INH ELLIPTA INHALER. INH SCH (09:00)
[2021-04-09] MEDS: IPRATROPIUM/ALBUTEROL 20/100mcg/INH INHALER. INH SCH ×4 (09:15→20:44)
[2021-04-09] MEDS: DICLOFENAC SODIUM 1% TOPICAL GEL 100GM TUBE. TP SCH ×4 (09:15→20:45)
[2021-04-09] MEDS: ASPIRIN ENTERIC COATED 81 MG TABLET.DR. PO SCH (09:15)
[2021-04-09] MEDS: ARIPiprazole 15 MG TABLET PO SCH (09:15)
[2021-04-09] MEDS: PANTOPRAZOLE 40 MG TABLET. PO SCH (09:16)
[2021-04-09] MEDS: POTASSIUM CHLORIDE 20 MEQ TABLET.ER. PO SCH ×2 (09:16→20:44)
[2021-04-09] MEDS: FUROSEMIDE 80 MG TABLET PO SCH (09:17)
[2021-04-09] MEDS: ISOSORBIDE MONONITRATE ER 30 MG TAB.ER.24H PO SCH (09:17)
[2021-04-09] MEDS: DIVALPROEX SODIUM 250 MG TABLET.DR. PO SCH ×2 (09:20→20:42)
[2021-04-09 15:49] VITALS: BP 113/73
[2021-04-09] MEDS: rOPINIRole 0.5 MG TABLET. PO SCH (20:42)
[2021-04-09] MEDS: ATORVASTATIN CALCIUM 20 MG TABLET PO SCH (20:44)
[2021-04-09] MEDS: QUEtiapine 100 MG TABLET. PO SCH (20:44)
--- NOTE | 2021-04-09 21:38 | PDOC ---
Exam Note: [place] Note: Please also refer to the separate dictated note~for this date of service dictated separately.~Patient seen individually. Discussed the patient with Nursing staff reviewed the chart.~Reviewed interim history and current functioning. Reviewed vital signs,~Labs/ Radiology~and current medications noted below. Continue current treatment with the changes noted in the dictated addendum note Assessment: Vital Signs/I&O: Vital Signs Date Time Temp Pulse Resp B/P (MAP) Pulse Ox O2 Delivery O2 Flow Rate FiO2 04/09/21 20:43 78 113/73 04/09/21 15:49 98.0 20 99 5.0 04/07/21 06:42 Nasal Cannula I & O 04/08/21 04/08/21 04/09/21 15:00 23:00 07:00 Intake Total 300 ml 380 ml 240 ml Balance 300 ml 380 ml 240 ml Labs: Laboratory Tests Test 04/09/21 05:30 SARS-CoV-2 (PCR) Not detected (NOT DETECTD) Current Medications: Meds: Laboratory Tests Test 04/09/21 05:30 Coronavirus (COVID-19)(PCR) Not detected Current Medications Medications (Trade) Dose Ordered Sig/Indra Route PRN Reason Start Time Stop Time Status Last Admin Dose Admin Albuterol Sulfate (Ventolin) 1 mg PRN Q4HRS PRN IH FOR ASTHMA 04/02/21 12:00 UNV Amlodipine Besylate (Norvasc) 5 mg DAILY PO 04/03/21 09:00 04/02/21 13:08 DC Aripiprazole (Abilify) 15 mg DAILY PO 04/03/21 09:00 04/09/21 09:15 Aspirin (Aspirin Enteric Coated) 81 mg DAILY PO 04/03/21 09:00 04/09/21 09:15 Atorvastatin Calcium (Lipitor) 20 mg QHS PO 04/02/21 21:00 04/09/21 20:44 Calcium/Vitamin D (Oscal D 500mg/ 200uts) 1 tab BID PO 04/02/21 21:00 04/02/21 13:08 DC Vitamin D (Vitamin D3) 50,000 unit QWE PO 04/03/21 16:00 04/02/21 13:08 DC Clonazepam (KlonoPIN) 0.5 mg PRN BID PRN PO ANXIETY / AGITATION 04/02/21 12:00 Cancel Diclofenac Sodium (Voltaren) 2 joesph QID TP 04/02/21 13:00 04/09/21 20:45 Divalproex Sodium (Depakote Er) 500 mg HS PO 04/02/21 21:00 04/02/21 13:08 DC Docusate Sodium (Colace) 100 mg BID PO 04/02/21 21:00 04/02/21 13:08 DC Enoxaparin Sodium (Lovenox 40mg Syringe) 40 mg HS SQ 04/02/21 21:00 04/02/21 13:08 DC Ferrous Sulfate (Feosol) 325 mg DAILY PO 04/03/21 09:00 04/02/21 13:08 DC Furosemide (Lasix) 40 mg DAILY PO 04/03/21 09:00 04/02/21 13:08 DC Isosorbide Mononitrate (Imdur) 30 mg DAILY08 PO 04/03/21 08:00 04/09/21 09:17 Ketoconazole (Nizoral 2% Shampoo) 1 joesph PRN DAILY PRN TP DANDRUFF 04/02/21 12:00 04/02/21 13:08 DC Levothyroxine Sodium (Synthroid) 75 mcg DAILY06 PO 04/03/21 06:00 04/09/21 05:18 Metoprolol Tartrate (Lopressor) 12.5 mg BID PO 04/02/21 21:00 04/09/21 20:43 Olanzapine (ZyPREXA ZYDIS) 2.5 mg PRN Q2HR PRN PO ANXIETY / AGITATION 04/02/21 12:00 04/02/21 13:08 DC Pantoprazole Sodium (Protonix) 40 mg DAILY08 PO 04/03/21 08:00 04/09/21 09:16 Polyethylene Glycol (miraLAX) 17 gm PRN BID PRN PO CONSTIPATION, 1ST CHOICE 04/02/21 12:00 Potassium Chloride (Klor-Con) 20 meq BID PO 04/02/21 21:00 04/09/21 20:44 Ropinirole HCl (Requip) 0.5 mg HS PO 04/02/21 21:00 04/09/21 20:42 Sennosides (Senna) 8.6 mg BIDACBL PO 04/03/21 07:30 04/02/21 13:08 DC Tramadol HCl (Ultram) 50 mg PRN Q6HRS PRN PO MOD -SEV PAIN 04/02/21 12:00 04/02/21 13:08 DC Triamcinolone Acetonide (Kenalog) 1 joesph PRN Q12HR PRN TP ITCHING 04/02/21 12:00 04/02/21 13:08 DC Vitamin A/Vitamin D (Vitamin A & D Ointment) 1 joesph PRN Q1HR PRN TP DRY SKIN / SCALING 04/02/21 12:00 04/02/21 13:08 DC Non-Formulary Medication (Fluoxetine Hcl (Prozac)) 80 mg DAILY08 PO 04/03/21 08:00 04/02/21 13:08 DC Multi-Ingredient Ointment (Analgesic [place]) 1 joesph PRN QID PRN TP MUSCLE PAIN 04/02/21 12:45 Non-Formulary Medication (Olodaterol HCl (Striverdi Respimat)) 2 puff DAILY IH 04/03/21 09:00 04/02/21 13:08 DC Non-Formulary Medication (Quetiapine Fumarate (Seroquel)) 300 mg DAILY08 PO 04/03/21 08:00 04/02/21 13:08 DC Non-Formulary Medication (Quetiapine Fumarate (Seroquel)) 600 mg HS PO 04/02/21 21:00 04/02/21 13:08 DC Acetaminophen (Tylenol) 650 mg PRN Q6HRS PRN PO MILD PAIN / TEMP > 100.3'F 04/02/21 12:30 Al Hydroxide/Mg Hydroxide (Mylanta Plus Xs) 15 ml PRN AFTMEALHC PRN PO DYSPEPSIA 04/02/21 12:30 Magnesium Hydroxide (Milk Of Magnesia) 2,400 mg PRN QHS PRN PO CONSTIPATION, 2ND CHOICE 04/02/21 12:30 Albuterol Sulfate (Ventolin Hfa Inhaler) 1 puff PRN Q4HRS PRN INH SOA 04/02/21 12:45 04/04/21 09:12 Albuterol Sulfate (Ventolin) 1 mg PRN Q4HRS PRN IH FOR ASTHMA 04/02/21 13:00 UNV Albuterol/ Ipratropium (Duoneb) 3 ml PRN QID PRN NEB copd 1/25/22 13:00 UNV Non-Formulary Medication (Umeclidinium [place] (Incruse Ellipta)) 62.5 mcg DAILY IH 04/03/21 09:00 UNV Furosemide (Lasix) 80 mg BID94 PO 04/02/21 16:00 04/06/21 16:01 DC 04/06/21 09:03 Fluoxetine HCl (PROzac) 30 mg DAILY08 PO 04/03/21 08:00 04/09/21 09:16 Quetiapine Fumarate (SEROquel) 100 mg HS PO 04/02/21 21:00 04/09/21 20:44 Albuterol/ Ipratropium (Combivent Respimat 20-100 Mcg) 1 puff RTQID INH 04/02/21 16:00 04/09/21 20:44 Fluticasone Furoate (ARNUITY 100mcg ELLIPTA) 1 puff DAILY INH 04/03/21 09:00 04/09/21 09:00 Hydroxyzine HCl (Atarax) 25 mg PRN Q8HRS PRN PO ANXIETY / AGITATION 04/02/21 14:15 04/04/21 17:36 DC Divalproex Sodium (Depakote) 125 mg DAILY PO 04/04/21 09:00 04/08/21 17:07 DC 04/08/21 08:31 Divalproex Sodium (Depakote) 375 mg HS PO 04/03/21 21:00 04/08/21 17:07 DC 04/07/21 20:03 Trazodone HCl (Desyrel) 50 mg PRN QHS PRN PO INSOMNIA 04/04/21 17:15 Hydroxyzine HCl (Atarax) 50 mg PRN Q6HRS PRN PO anxiety 04/04/21 17:15 04/08/21 14:30 Furosemide (Lasix) 80 mg DAILY PO 04/07/21 09:00 04/09/21 09:17 Divalproex Sodium (Depakote) 500 mg HS PO 04/08/21 21:00 04/09/21 20:42 Divalproex Sodium (Depakote) 250 mg DAILY PO 04/09/21 09:00 04/09/21 09:20 Current Medications Medications (Trade) Dose Ordered Sig/Indra Route PRN Reason Start Time Stop Time Status Last Admin Dose Admin Divalproex Sodium (Depakote) 250 mg DAILY PO 04/09/21 09:00 04/09/21 09:20 I have reviewed the current psychotropics carefully including drug interactions. Risk benefit ratio favors no change other than as noted in my dictated progress note. Diagnosis: Problems: (1) Schizoaffective disorder, bipolar type (2) Impulse control disorder, unspecified (3) Anxiety disorder, unspecified MICHAEL CLARK MD Apr 09, 2021 21:38
[2021-04-10] MEDS: LEVOTHYROXINE 75 MCG TABLET PO SCH (05:12)
[2021-04-10] MEDS: hydrOXYzine HCL 25 MG TABLET PO PRN ×2 (05:45→15:33)
[2021-04-10 06:18] VITALS: BP 96/54
--- NOTE | 2021-04-10 08:08 | PDOC ---
Exam Note: [place] Note: This note is a late entry for 04/08/2021 covers elements not covered in my initial note. Subjective: The patient was seen individually on 04/08/2021, discussed and reviewed the chart with Jayy WOMACK. Dr. Cox had covered for me for the past two weeks and I have reviewed information, notes and records by Dr. Cox. The unit is currently on lockdown for any admissions due to Covid-19 positive status. The patient slept 6-1/4 hours previous night. She was admitted on 04/02/21 during my vacation by Dr. Cox. She was residing at [facility]. She was having marked mood lability, crying spells, suicidal ideation with an attempt to hurt herself with a fork. She was angry, threatening to jump from the window which prompted this current readmission after she was at the [place] for one week. Overall per nursing report, she has been better and pleasant with slightly improved affect. She had some nightmares. She does have hydroxyzine p.r.n. for anxiety. She gets a little paranoid, believes people are mean to her. She does have ongoing mood swings but improved. Review of Systems: Ambulation impaired in wheelchair. No CV, , pulmonary, eye, ENT system symptoms on review. Mental Status Exam: The patient is awake, alert and oriented reasonably. Speech is coherent, has some latency. Abstraction fair. Computation impaired. Language function intact. Attention span short. Mood and affect somewhat withdrawn. No suicidal or homicidal ideation. No active psychotic symptoms. Laboratory Data: Reviewed. Impression: Schizoaffective disorder, bipolar type, depressed. Anxiety disorder unspecified. Impulse control disorder unspecified. Major depressive disorder, with history of psychotic features. Plan: I have carefully reviewed the patients current psychotropics, drug interactions and risk-benefit ratio. We will maintain Abilify 15 mg a day, Seroquel 100 mg h.s. She is also on ReQuip 0.5 mg h.s., Prozac 30 mg a day, hydroxyzine p.r.n. Valproic acid level is subtherapeutic at 40 on 04/07/21 and we will increase Depakote from 125 mg a.m. 375 mg p.m. to 250 mg am. and 500 mg h.s. Check CBC, CMP, valproic acid level in 3 days and adjust to reach therapeutic level. Continue rest unchanged. Assessment: Vital Signs/I&O: Vital Signs Date Time Temp Pulse Resp B/P (MAP) Pulse Ox O2 Delivery O2 Flow Rate FiO2 04/10/21 06:18 98.0 72 20 96/54 (68) 100 High Flow Nasal Cannula 5.0 I & O 04/09/21 04/09/21 04/10/21 14:59 22:59 06:59 Intake Total 720 ml 240 ml 240 ml Balance 720 ml 240 ml 240 ml Current Medications: Meds: Current Medications Medications (Trade) Dose Ordered Sig/Indra Route PRN Reason Start Time Stop Time Status Last Admin Dose Admin Divalproex Sodium (Depakote) 250 mg DAILY PO 04/09/21 09:00 04/09/21 09:20 I have reviewed the current psychotropics carefully including drug interactions. Risk benefit ratio favors no change other than as noted in my dictated progress note. Diagnosis: Problems: (1) Major depressive disorder with psychotic features (2) Schizoaffective disorder, bipolar type (3) Impulse control disorder, unspecified (4) Anxiety disorder, unspecified MICHAEL CLARK MD Apr 10, 2021 08:08
--- NOTE | 2021-04-10 08:22 | PDOC ---
Exam Note: [place] Note: This note is a late entry for 04/09/2021 covers elements not covered in my initial note. Subjective: The patient was seen individually on 04/09/2021, discussed and reviewed the chart with Niesha WOMACK. The unit is currently on lockdown for any admissions due to Covid-19 positive status. The patient slept 1 hour previous night. Overall the patient spends much time in her room. Review of Systems: Ambulation impaired in wheelchair. No CV, , pulmonary, eye, ENT system symptoms on review. Mental Status Exam: The patient is oriented reasonably. Speech is coherent, has some latency. Abstraction fair. Computation impaired. Language function intact. Attention span short. Mood and affect withdrawn. She continues to have some mood lability. Laboratory Data: Reviewed. Impression: Schizoaffective disorder, bipolar type, depressed. Anxiety disorder unspecified. Impulse control disorder unspecified. Major depressive disorder, with history of psychotic features. Plan: We have increased the patients Depakote since her level was subtherapeutic. Continue current psychotropics. Adjust further as clinically indicated. Reviewed drug interactions and risk-benefit ratio favors no change at this time. Assessment: Vital Signs/I&O: Vital Signs Date Time Temp Pulse Resp B/P (MAP) Pulse Ox O2 Delivery O2 Flow Rate FiO2 04/10/21 06:18 98.0 72 20 96/54 (68) 100 High Flow Nasal Cannula 5.0 I & O 04/09/21 04/09/21 04/10/21 15:00 23:00 07:00 Intake Total 720 ml 240 ml 240 ml Balance 720 ml 240 ml 240 ml Current Medications: Meds: Current Medications Medications (Trade) Dose Ordered Sig/Indra Route PRN Reason Start Time Stop Time Status Last Admin Dose Admin Divalproex Sodium (Depakote) 250 mg DAILY PO 04/09/21 09:00 04/09/21 09:20 I have reviewed the current psychotropics carefully including drug interactions. Risk benefit ratio favors no change other than as noted in my dictated progress note. Diagnosis: Problems: (1) Schizoaffective disorder, bipolar type (2) Impulse control disorder, unspecified (3) Anxiety disorder, unspecified (4) Major depressive disorder with psychotic features MICHAEL CLARK MD Apr 10, 2021 08:22
[2021-04-10] MEDS: ISOSORBIDE MONONITRATE ER 30 MG TAB.ER.24H PO SCH (08:39)
[2021-04-10] MEDS: ASPIRIN ENTERIC COATED 81 MG TABLET.DR. PO SCH (08:39)
[2021-04-10] MEDS: PANTOPRAZOLE 40 MG TABLET. PO SCH (08:40)
[2021-04-10] MEDS: DIVALPROEX SODIUM 250 MG TABLET.DR. PO SCH ×2 (08:42→20:28)
[2021-04-10] MEDS: POTASSIUM CHLORIDE 20 MEQ TABLET.ER. PO SCH ×2 (08:42→20:27)
[2021-04-10] MEDS: ARIPiprazole 15 MG TABLET PO SCH (08:42)
[2021-04-10] MEDS: METOPROLOL TART IMMED RELEASE 25 MG TABLET. PO SCH ×2 (08:42→20:28)
[2021-04-10] MEDS: IPRATROPIUM/ALBUTEROL 20/100mcg/INH INHALER. INH SCH ×4 (08:43→20:31)
[2021-04-10] MEDS: FUROSEMIDE 80 MG TABLET PO SCH (08:44)
[2021-04-10] MEDS: DICLOFENAC SODIUM 1% TOPICAL GEL 100GM TUBE. TP SCH ×4 (08:45→20:31)
[2021-04-10] MEDS: FLUTICASONE FUROATE 100mcg/INH ELLIPTA INHALER. INH SCH (09:00)
[2021-04-10 15:50] VITALS: BP 94/54
[2021-04-10] MEDS: rOPINIRole 0.5 MG TABLET. PO SCH (20:26)
[2021-04-10] MEDS: ATORVASTATIN CALCIUM 20 MG TABLET PO SCH (20:28)
[2021-04-10] MEDS: QUEtiapine 100 MG TABLET. PO SCH (20:28)
--- NOTE | 2021-04-10 21:32 | PDOC ---
Exam Note: [place] Note: Please also refer to the separate dictated note~for this date of service dictated separately.~Patient seen individually. Discussed the patient with Nursing staff reviewed the chart.~Reviewed interim history and current functioning. Reviewed vital signs,~Labs/ Radiology~and current medications noted below. Continue current treatment with the changes noted in the dictated addendum note Assessment: Vital Signs/I&O: Vital Signs Date Time Temp Pulse Resp B/P (MAP) Pulse Ox O2 Delivery O2 Flow Rate FiO2 04/10/21 20:28 79 94/54 04/10/21 15:50 98.3 18 97 04/10/21 06:18 High Flow Nasal Cannula 5.0 I & O0 04/09/21 04/09/21 04/10/21 15:00 23:00 07:00 Intake Total 720 ml 240 ml 240 ml Balance 720 ml 240 ml 240 ml Current Medications: Meds: Current Medications Medications (Trade) Dose Ordered Sig/Indra Route PRN Reason Start Time Stop Time Status Last Admin Dose Admin Albuterol Sulfate (Ventolin) 1 mg PRN Q4HRS PRN IH FOR ASTHMA 04/02/21 12:00 UNV Amlodipine Besylate (Norvasc) 5 mg DAILY PO 04/03/21 09:00 04/02/21 13:08 DC Aripiprazole (Abilify) 15 mg DAILY PO 04/03/21 09:00 04/10/21 08:42 Aspirin (Aspirin Enteric Coated) 81 mg DAILY PO 04/03/21 09:00 04/10/21 08:39 Atorvastatin Calcium (Lipitor) 20 mg QHS PO 04/02/21 21:00 04/10/21 20:28 Calcium/Vitamin D (Oscal D 500mg/ 200uts) 1 tab BID PO 04/02/21 21:00 04/02/21 13:08 DC Vitamin D (Vitamin D3) 50,000 unit QWE PO 04/03/21 16:00 04/02/21 13:08 DC Clonazepam (KlonoPIN) 0.5 mg PRN BID PRN PO ANXIETY / AGITATION 04/02/21 12:00 Cancel Diclofenac Sodium (Voltaren) 2 joesph QID TP 04/02/21 13:00 04/10/21 20:31 Divalproex Sodium (Depakote Er) 500 mg HS PO 04/02/21 21:00 04/02/21 13:08 DC Docusate Sodium (Colace) 100 mg BID PO 04/02/21 21:00 04/02/21 13:08 DC Enoxaparin Sodium (Lovenox 40mg Syringe) 40 mg HS SQ 04/02/21 21:00 04/02/21 13:08 DC Ferrous Sulfate (Feosol) 325 mg DAILY PO 04/03/21 09:00 04/02/21 13:08 DC Furosemide (Lasix) 40 mg DAILY PO 04/03/21 09:00 04/02/21 13:08 DC Isosorbide Mononitrate (Imdur) 30 mg DAILY08 PO 04/03/21 08:00 04/10/21 08:39 Ketoconazole (Nizoral 2% Shampoo) 1 joesph PRN DAILY PRN TP DANDRUFF 04/02/21 12:00 04/02/21 13:08 DC Levothyroxine Sodium (Synthroid) 75 mcg DAILY06 PO 04/03/21 06:00 04/10/21 05:12 Metoprolol Tartrate (Lopressor) 12.5 mg BID PO 04/02/21 21:00 04/10/21 20:28 Olanzapine (ZyPREXA ZYDIS) 2.5 mg PRN Q2HR PRN PO ANXIETY / AGITATION 04/02/21 12:00 04/02/21 13:08 DC Pantoprazole Sodium (Protonix) 40 mg DAILY08 PO 04/03/21 08:00 04/10/21 08:40 Polyethylene Glycol (miraLAX) 17 gm PRN BID PRN PO CONSTIPATION, 1ST CHOICE 04/02/21 12:00 Potassium Chloride (Klor-Con) 20 meq BID PO 04/02/21 21:00 04/10/21 20:27 Ropinirole HCl (Requip) 0.5 mg HS PO 04/02/21 21:00 04/10/21 20:26 Sennosides (Senna) 8.6 mg BIDACBL PO 04/03/21 07:30 04/02/21 13:08 DC Tramadol HCl (Ultram) 50 mg PRN Q6HRS PRN PO MOD -SEV PAIN 04/02/21 12:00 04/02/21 13:08 DC Triamcinolone Acetonide (Kenalog) 1 joesph PRN Q12HR PRN TP ITCHING 04/02/21 12:00 04/02/21 13:08 DC Vitamin A/Vitamin D (Vitamin A & D Ointment) 1 joesph PRN Q1HR PRN TP DRY SKIN / SCALING 04/02/21 12:00 04/02/21 13:08 DC Non-Formulary Medication (Fluoxetine Hcl (Prozac)) 80 mg DAILY08 PO 04/03/21 08:00 04/02/21 13:08 DC Multi-Ingredient Ointment (Analgesic [place]) 1 joesph PRN QID PRN TP MUSCLE PAIN 04/02/21 12:45 Non-Formulary Medication (Olodaterol HCl (Striverdi Respimat)) 2 puff DAILY IH 04/03/21 09:00 04/02/21 13:08 DC Non-Formulary Medication (Quetiapine Fumarate (Seroquel)) 300 mg DAILY08 PO 04/03/21 08:00 04/02/21 13:08 DC Non-Formulary Medication (Quetiapine Fumarate (Seroquel)) 600 mg HS PO 04/02/21 21:00 04/02/21 13:08 DC Acetaminophen (Tylenol) 650 mg PRN Q6HRS PRN PO MILD PAIN / TEMP > 100.3'F 04/02/21 12:30 Al Hydroxide/Mg Hydroxide (Mylanta Plus Xs) 15 ml PRN AFTMEALHC PRN PO DYSPEPSIA 04/02/21 12:30 Magnesium Hydroxide (Milk Of Magnesia) 2,400 mg PRN QHS PRN PO CONSTIPATION, 2ND CHOICE 04/02/21 12:30 Albuterol Sulfate (Ventolin Hfa Inhaler) 1 puff PRN Q4HRS PRN INH SOA 04/02/21 12:45 04/04/21 09:12 Albuterol Sulfate (Ventolin) 1 mg PRN Q4HRS PRN IH FOR ASTHMA 04/02/21 13:00 UNV Albuterol/ Ipratropium (Duoneb) 3 ml PRN QID PRN NEB copd 04/02/21 13:00 UNV Non-Formulary Medication (Umeclidinium [place] (Incruse Ellipta)) 62.5 mcg DAILY IH 04/03/21 09:00 UNV Furosemide (Lasix) 80 mg BID94 PO 04/02/21 16:00 04/06/21 16:01 DC 04/06/21 09:03 Fluoxetine HCl (PROzac) 30 mg DAILY08 PO 04/03/21 08:00 04/10/21 08:40 Quetiapine Fumarate (SEROquel) 100 mg HS PO 04/02/21 21:00 04/10/21 20:28 Albuterol/ Ipratropium (Combivent Respimat 20-100 Mcg) 1 puff RTQID INH 04/02/21 16:00 04/10/21 20:31 Fluticasone Furoate (ARNUITY 100mcg ELLIPTA) 1 puff DAILY INH 04/03/21 09:00 04/10/21 09:00 Hydroxyzine HCl (Atarax) 25 mg PRN Q8HRS PRN PO ANXIETY / AGITATION 04/02/21 14:15 04/04/21 17:36 DC Divalproex Sodium (Depakote) 125 mg DAILY PO 04/04/21 09:00 04/08/21 17:07 DC 04/08/21 08:31 Divalproex Sodium (Depakote) 375 mg HS PO 04/03/21 21:00 04/08/21 17:07 DC 04/07/21 20:03 Trazodone HCl (Desyrel) 50 mg PRN QHS PRN PO INSOMNIA 04/04/21 17:15 Hydroxyzine HCl (Atarax) 50 mg PRN Q6HRS PRN PO anxiety 04/04/21 17:15 04/10/21 15:33 Furosemide (Lasix) 80 mg DAILY PO 04/07/21 09:00 04/10/21 08:44 Divalproex Sodium (Depakote) 500 mg HS PO 04/08/21 21:00 04/10/21 20:28 Divalproex Sodium (Depakote) 250 mg DAILY PO 04/09/21 09:00 04/10/21 08:42 Sodium Chloride (Saline Mist Nasal) 1 joesph PRN Q1HR PRN NS NASAL CONGESTION 04/10/21 14:30 I have reviewed the current psychotropics carefully including drug interactions. Risk benefit ratio favors no change other than as noted in my dictated progress note. Diagnosis: Problems: (1) Schizoaffective disorder, bipolar type (2) Impulse control disorder, unspecified (3) Anxiety disorder, unspecified (4) Major depressive disorder with psychotic features MICHAEL CLARK MD Apr 10, 2021 21:32
[2021-04-11] MEDS: LEVOTHYROXINE 75 MCG TABLET PO SCH (05:27)
[2021-04-11 06:14] VITALS: BP 100/64
[2021-04-11] MEDS: IPRATROPIUM/ALBUTEROL 20/100mcg/INH INHALER. INH SCH ×4 (08:00→20:17)
[2021-04-11] MEDS: PANTOPRAZOLE 40 MG TABLET. PO SCH (08:00)
[2021-04-11] MEDS: ISOSORBIDE MONONITRATE ER 30 MG TAB.ER.24H PO SCH (08:00)
--- NOTE | 2021-04-11 08:10 | PDOC ---
Exam Note: [place] Note: This note is a late entry for 04/10/2021 covers elements not covered in my initial note. Subjective: The patient was seen on telehealth rounds with Niesha WOMACK on 04/10/2021, discussed and reviewed the chart with Yesenia WOMACK. The patient slept 3-1/2 hours previous night. Overall the patient has had a good day. Review of Systems: Ambulation impaired in wheelchair. No CV, , eye, ENT system symptoms on review. Shortness of breath on O2 supplements. She remains on fluid restriction and 5 L oxygen by nasal cannula. Mental Status Exam: The patient is oriented reasonably. She refused to talk because she was upset about being back on the Covid side of the unit. Speech is coherent. Abstraction fair. Computation impaired. Language function intact. Mood and affect remains somewhat dysphoric. No suicidal or homicidal ideation. Laboratory Data: Reviewed. Impression: Schizoaffective disorder, bipolar type, depressed. Anxiety disorder unspecified. Impulse control disorder unspecified. Major depressive disorder, with history of psychotic features. Plan: To transfer her to the non-Covid observation side of the [facility] but on the recommendation of Infectious Disease this has been postponed. She has been anxious about her placement. Rest unchanged for now. Assessment: Vital Signs/I&O: Vital Signs Date Time Temp Pulse Resp B/P (MAP) Pulse Ox O2 Delivery O2 Flow Rate FiO2 04/11/21 06:14 98.0 68 24 100/64 (76) 98 04/10/21 06:18 High Flow Nasal Cannula 5.0 I & O 04/10/21 04/10/21 04/11/21 15:00 23:00 07:00 Intake Total 440 ml 600 ml Balance 440 ml 600 ml Current Medications: I have reviewed the current psychotropics carefully including drug interactions. Risk benefit ratio favors no change other than as noted in my dictated progress note. Diagnosis: Problems: (1) Schizoaffective disorder, bipolar type (2) Impulse control disorder, unspecified (3) Anxiety disorder, unspecified (4) Major depressive disorder with psychotic features MICHAEL CLARK MD Apr 11, 2021 08:10
[2021-04-11] MEDS: DICLOFENAC SODIUM 1% TOPICAL GEL 100GM TUBE. TP SCH ×4 (09:00→20:16)
[2021-04-11] MEDS: POTASSIUM CHLORIDE 20 MEQ TABLET.ER. PO SCH ×2 (09:00→20:15)
[2021-04-11] MEDS: ASPIRIN ENTERIC COATED 81 MG TABLET.DR. PO SCH (09:00)
[2021-04-11] MEDS: FLUTICASONE FUROATE 100mcg/INH ELLIPTA INHALER. INH SCH (09:00)
[2021-04-11] MEDS: METOPROLOL TART IMMED RELEASE 25 MG TABLET. PO SCH ×2 (09:00→20:14)
[2021-04-11] MEDS: DIVALPROEX SODIUM 250 MG TABLET.DR. PO SCH ×2 (09:00→20:15)
[2021-04-11] MEDS: FUROSEMIDE 80 MG TABLET PO SCH (09:00)
[2021-04-11] MEDS: ARIPiprazole 15 MG TABLET PO SCH (09:00)
[2021-04-11 16:31] VITALS: BP 108/70
[2021-04-11] MEDS: SODIUM CHLORIDE 0.65% NASAL SPRAY 45ML BOTTLE. NS PRN ×2 (17:18→20:38)
[2021-04-11] MEDS: rOPINIRole 0.5 MG TABLET. PO SCH (20:13)
[2021-04-11] MEDS: QUEtiapine 100 MG TABLET. PO SCH (20:13)
[2021-04-11] MEDS: ATORVASTATIN CALCIUM 20 MG TABLET PO SCH (20:15)
[2021-04-11] MEDS: hydrOXYzine HCL 25 MG TABLET PO PRN (20:27)
--- NOTE | 2021-04-11 22:13 | PDOC ---
Exam Note: [place] Note: Please also refer to the separate dictated note~for this date of service dictated separately.~Patient seen individually. Discussed the patient with Nursing staff reviewed the chart.~Reviewed interim history and current functioning. Reviewed vital signs,~Labs/ Radiology~and current medications noted below. Continue current treatment with the changes noted in the dictated addendum note Assessment: Vital Signs/I&O: Vital Signs Date Time Temp Pulse Resp B/P (MAP) Pulse Ox O2 Delivery O2 Flow Rate FiO2 04/11/21 20:14 68 108/70 04/11/21 16:31 98.3 16 97 High Flow Nasal Cannula 5.0 I & O 04/10/21 04/10/21 04/11/21 15:00 23:00 07:00 Intake Total 440 ml 600 ml Balance 440 ml 600 ml Current Medications: Meds: Current Medications Medications (Trade) Dose Ordered Sig/Indra Route PRN Reason Start Time Stop Time Status Last Admin Dose Admin Albuterol Sulfate (Ventolin) 1 mg PRN Q4HRS PRN IH FOR ASTHMA 04/02/21 12:00 UNV Amlodipine Besylate (Norvasc) 5 mg DAILY PO 04/03/21 09:00 04/02/21 13:08 DC Aripiprazole (Abilify) 15 mg DAILY PO 04/03/21 09:00 04/11/21 09:00 Aspirin (Aspirin Enteric Coated) 81 mg DAILY PO 04/03/21 09:00 04/11/21 09:00 Atorvastatin Calcium (Lipitor) 20 mg QHS PO 04/02/21 21:00 04/11/21 20:15 Calcium/Vitamin D (Oscal D 500mg/ 200uts) 1 tab BID PO 04/02/21 21:00 04/02/21 13:08 DC Vitamin D (Vitamin D3) 50,000 unit QWE PO 04/03/21 16:00 04/02/21 13:08 DC Clonazepam (KlonoPIN) 0.5 mg PRN BID PRN PO ANXIETY / AGITATION 04/02/21 12:00 Cancel Diclofenac Sodium (Voltaren) 2 joesph QID TP 04/02/21 13:00 04/11/21 17:00 Divalproex Sodium (Depakote Er) 500 mg HS PO 04/02/21 21:00 04/02/21 13:08 DC Docusate Sodium (Colace) 100 mg BID PO 04/02/21 21:00 04/02/21 13:08 DC Enoxaparin Sodium (Lovenox 40mg Syringe) 40 mg HS SQ 04/02/21 21:00 04/02/21 13:08 DC Ferrous Sulfate (Feosol) 325 mg DAILY PO 04/03/21 09:00 04/02/21 13:08 DC Furosemide (Lasix) 40 mg DAILY PO 04/03/21 09:00 04/02/21 13:08 DC Isosorbide Mononitrate (Imdur) 30 mg DAILY08 PO 04/03/21 08:00 04/11/21 08:00 Ketoconazole (Nizoral 2% Shampoo) 1 joesph PRN DAILY PRN TP DANDRUFF 04/02/21 12:00 04/02/21 13:08 DC Levothyroxine Sodium (Synthroid) 75 mcg DAILY06 PO 04/03/21 06:00 04/11/21 05:27 Metoprolol Tartrate (Lopressor) 12.5 mg BID PO 04/02/21 21:00 04/11/21 20:14 Olanzapine (ZyPREXA ZYDIS) 2.5 mg PRN Q2HR PRN PO ANXIETY / AGITATION 04/02/21 12:00 04/02/21 13:08 DC Pantoprazole Sodium (Protonix) 40 mg DAILY08 PO 04/03/21 08:00 04/11/21 08:00 Polyethylene Glycol (miraLAX) 17 gm PRN BID PRN PO CONSTIPATION, 1ST CHOICE 04/02/21 12:00 Potassium Chloride (Klor-Con) 20 meq BID PO 04/02/21 21:00 04/11/21 20:15 Ropinirole HCl (Requip) 0.5 mg HS PO 04/02/21 21:00 04/11/21 20:13 Sennosides (Senna) 8.6 mg BIDACBL PO 04/03/21 07:30 04/02/21 13:08 DC Tramadol HCl (Ultram) 50 mg PRN Q6HRS PRN PO MOD -SEV PAIN 04/02/21 12:00 04/02/21 13:08 DC Triamcinolone Acetonide (Kenalog) 1 joesph PRN Q12HR PRN TP ITCHING 04/02/21 12:00 04/02/21 13:08 DC Vitamin A/Vitamin D (Vitamin A & D Ointment) 1 joesph PRN Q1HR PRN TP DRY SKIN / SCALING 04/02/21 12:00 04/02/21 13:08 DC Non-Formulary Medication (Fluoxetine Hcl (Prozac)) 80 mg DAILY08 PO 04/03/21 08:00 04/02/21 13:08 DC Multi-Ingredient Ointment (Analgesic [place]) 1 joesph PRN QID PRN TP MUSCLE PAIN 04/02/21 12:45 Non-Formulary Medication (Olodaterol HCl (Striverdi Respimat)) 2 puff DAILY IH 04/03/21 09:00 04/02/21 13:08 DC Non-Formulary Medication (Quetiapine Fumarate (Seroquel)) 300 mg DAILY08 PO 04/03/21 08:00 04/02/21 13:08 DC Non-Formulary Medication (Quetiapine Fumarate (Seroquel)) 600 mg HS PO 04/02/21 21:00 04/02/21 13:08 DC Acetaminophen (Tylenol) 650 mg PRN Q6HRS PRN PO MILD PAIN / TEMP > 100.3'F 04/02/21 12:30 Al Hydroxide/Mg Hydroxide (Mylanta Plus Xs) 15 ml PRN AFTMEALHC PRN PO DYSPEPSIA 04/02/21 12:30 Magnesium Hydroxide (Milk Of Magnesia) 2,400 mg PRN QHS PRN PO CONSTIPATION, 2ND CHOICE 04/02/21 12:30 Albuterol Sulfate (Ventolin Hfa Inhaler) 1 puff PRN Q4HRS PRN INH SOA 04/02/21 12:45 04/04/21 09:12 Albuterol Sulfate (Ventolin) 1 mg PRN Q4HRS PRN IH FOR ASTHMA 04/02/21 13:00 UNV Albuterol/ Ipratropium (Duoneb) 3 ml PRN QID PRN NEB copd 04/02/21 13:00 UNV Non-Formulary Medication (Umeclidinium [place] (Incruse Ellipta)) 62.5 mcg DAILY IH 04/03/21 09:00 UNV Furosemide (Lasix) 80 mg BID94 PO 04/02/21 16:00 04/06/21 16:01 DC 04/06/21 09:03 Fluoxetine HCl (PROzac) 30 mg DAILY08 PO 04/03/21 08:00 04/11/21 08:00 Quetiapine Fumarate (SEROquel) 100 mg HS PO 04/02/21 21:00 04/11/21 20:13 Albuterol/ Ipratropium (Combivent Respimat 20-100 Mcg) 1 puff RTQID INH 04/02/21 16:00 04/11/21 20:17 Fluticasone Furoate (ARNUITY 100mcg ELLIPTA) 1 puff DAILY INH 04/03/21 09:00 04/11/21 09:00 Hydroxyzine HCl (Atarax) 25 mg PRN Q8HRS PRN PO ANXIETY / AGITATION 04/02/21 14:15 04/04/21 17:36 DC Divalproex Sodium (Depakote) 125 mg DAILY PO 04/04/21 09:00 04/08/21 17:07 DC 04/08/21 08:31 Divalproex Sodium (Depakote) 375 mg HS PO 04/03/21 21:00 04/08/21 17:07 DC 04/07/21 20:03 Trazodone HCl (Desyrel) 50 mg PRN QHS PRN PO INSOMNIA 04/04/21 17:15 Hydroxyzine HCl (Atarax) 50 mg PRN Q6HRS PRN PO anxiety 04/04/21 17:15 04/11/21 20:27 Furosemide (Lasix) 80 mg DAILY PO 04/07/21 09:00 04/11/21 09:00 Divalproex Sodium (Depakote) 500 mg HS PO 04/08/21 21:00 04/11/21 20:15 Divalproex Sodium (Depakote) 250 mg DAILY PO 04/09/21 09:00 04/11/21 09:00 Sodium Chloride (Saline Mist Nasal) 1 joesph PRN Q1HR PRN NS NASAL CONGESTION 04/10/21 14:30 04/11/21 20:38 I have reviewed the current psychotropics carefully including drug interactions. Risk benefit ratio favors no change other than as noted in my dictated progress note. Diagnosis: Problems: (1) Schizoaffective disorder, bipolar type (2) Impulse control disorder, unspecified (3) Anxiety disorder, unspecified (4) Major depressive disorder with psychotic features MICHAEL CLARK MD Apr 11, 2021 22:13
[2021-04-12] MEDS: LEVOTHYROXINE 75 MCG TABLET PO SCH (05:26)
[2021-04-12 06:02] LABS: BASO % 1 % (0-3); EOS # 0.2 x10^3/uL (0.0-0.7); EOS % 2 % (0-3); HEMATOCRIT 29.8 % (36.0-47.0); HEMOGLOBIN 9.7 g/dL (12.0-15.5); LYMPH % 15 % (24-48); MEAN CORPUSCULAR HEMOGLOBIN 27 pg (25-35); MEAN CORPUSCULAR HGB CONC 33 g/dL (31-37); MEAN CORPUSCULAR VOLUME 84 fL (79-100); MONO # 0.7 x10^3/uL (0.0-1.1); MONO % 11 % (0-9); NEUT # 4.9 x10^3uL (1.8-7.7); NEUT % 72 % (31-73); PLATELET COUNT 253 x10^3/uL (140-400); RED BLOOD COUNT 3.57 x10^6/uL (3.50-5.40); RED CELL DISTRIBUTION WIDTH 17.7 % (11.5-14.5); WHITE BLOOD COUNT 6.9 x10^3/uL (4.0-11.0)
[2021-04-12 06:16] LABS: ALBUMIN/GLOBULIN RATIO 0.8 (1.0-1.7); ALK PHOS 81 U/L (46-116); ALT (SGPT) 19 U/L (14-59); ANION GAP 0 (6-14); AST (SGOT) 19 U/L (15-37); BLOOD UREA NITROGEN 31 mg/dL (7-20); BUN/CREATININE RATIO 34 (6-20); CALCIUM 9.1 mg/dL (8.5-10.1); CARBON DIOXIDE 35 mmol/L (21-32); CHLORIDE 94 mmol/L (98-107); CREATININE 0.9 mg/dL (0.6-1.0); GFR 62.5; GLUCOSE 87 mg/dL (70-99); POTASSIUM 5.4 mmol/L (3.5-5.1); SODIUM 129 mmol/L (136-145); TOTAL BILIRUBIN 0.4 mg/dL (0.2-1.0); TOTAL PROTEIN 6.9 g/dL (6.4-8.2); VAL ACID 54 mcg/mL (50-100)
[2021-04-12 06:18] VITALS: BP 124/85
[2021-04-12] MEDS: IPRATROPIUM/ALBUTEROL 20/100mcg/INH INHALER. INH SCH ×4 (08:16→19:46)
[2021-04-12] MEDS: DICLOFENAC SODIUM 1% TOPICAL GEL 100GM TUBE. TP SCH ×4 (08:17→19:47)
[2021-04-12] MEDS: SODIUM CHLORIDE 0.65% NASAL SPRAY 45ML BOTTLE. NS PRN ×3 (08:17→19:47)
[2021-04-12] MEDS: PANTOPRAZOLE 40 MG TABLET. PO SCH (08:18)
[2021-04-12] MEDS: ISOSORBIDE MONONITRATE ER 30 MG TAB.ER.24H PO SCH (08:18)
[2021-04-12] MEDS: FUROSEMIDE 80 MG TABLET PO SCH (08:19)
[2021-04-12] MEDS: DIVALPROEX SODIUM 250 MG TABLET.DR. PO SCH ×2 (08:19→19:46)
[2021-04-12] MEDS: ARIPiprazole 15 MG TABLET PO SCH (08:20)
[2021-04-12] MEDS: METOPROLOL TART IMMED RELEASE 25 MG TABLET. PO SCH ×2 (08:20→19:30)
[2021-04-12] MEDS: ASPIRIN ENTERIC COATED 81 MG TABLET.DR. PO SCH (08:20)
[2021-04-12] MEDS: FLUTICASONE FUROATE 100mcg/INH ELLIPTA INHALER. INH SCH (08:20)
[2021-04-12] MEDS: POTASSIUM CHLORIDE 20 MEQ TABLET.ER. PO SCH (08:21)
[2021-04-12] MEDS: hydrOXYzine HCL 25 MG TABLET PO PRN (08:58)
[2021-04-12 16:06] VITALS: BP 93/60
[2021-04-12] MEDS: rOPINIRole 0.5 MG TABLET. PO SCH (19:46)
[2021-04-12] MEDS: ATORVASTATIN CALCIUM 20 MG TABLET PO SCH (19:46)
[2021-04-12] MEDS: QUEtiapine 100 MG TABLET. PO SCH (19:46)
[2021-04-12] MEDS: POLYETHYLENE GLYCOL 3350 17 GM PACKET. PO PRN (20:36)
--- NOTE | 2021-04-12 21:55 | PDOC ---
Exam Note: [place] Note: Please also refer to the separate dictated note~for this date of service dictated separately.~Patient seen individually. Discussed the patient with Nursing staff reviewed the chart.~Reviewed interim history and current functioning. Reviewed vital signs,~Labs/ Radiology~and current medications noted below. Continue current treatment with the changes noted in the dictated addendum note Assessment: Vital Signs/I&O: Vital Signs Date Time Temp Pulse Resp B/P (MAP) Pulse Ox O2 Delivery O2 Flow Rate FiO2 04/12/21 19:30 66 93/60 04/12/21 16:06 98.0 20 95 Room Air 04/11/21 16:31 5.0 I & O 04/11/21 04/11/21 04/12/21 15:00 23:00 07:00 Intake Total 240 ml 840 ml Balance 240 ml 840 ml Labs: Laboratory Tests Test 04/12/21 05:53 04/12/21 06:00 White Blood Count 6.9 x10^3/uL (4.0-11.0) Red Blood Count 3.57 x10^6/uL (3.50-5.40) Hemoglobin 9.7 g/dL (12.0-15.5) L Hematocrit 29.8 % (36.0-47.0) L Mean Corpuscular Volume 84 fL (79-100) Mean Corpuscular Hemoglobin 27 pg (25-35) Mean Corpuscular Hemoglobin Concent 33 g/dL (31-37) Red Cell Distribution Width 17.7 % (11.5-14.5) H Platelet Count 253 x10^3/uL (140-400) Neutrophils (%) (Auto) 72 % (31-73) Lymphocytes (%) (Auto) 15 % (24-48) L Monocytes (%) (Auto) 11 % (0-9) H Eosinophils (%) (Auto) 2 % (0-3) Basophils (%) (Auto) 1 % (0-3) Neutrophils # (Auto) 4.9 x10^3uL (1.8-7.7) Lymphocytes # (Auto) 1.0 x10^3/uL (1.0-4.8) Monocytes # (Auto) 0.7 x10^3/uL (0.0-1.1) Eosinophils # (Auto) 0.2 x10^3/uL (0.0-0.7) Basophils # (Auto) 0.0 x10^3/uL (0.0-0.2) Sodium Level 129 mmol/L (136-145) L Potassium Level 5.4 mmol/L (3.5-5.1) H Chloride Level 94 mmol/L (98-107) L Carbon Dioxide Level 35 mmol/L (21-32) H Anion Gap 0 (6-14) L Blood Urea Nitrogen 31 mg/dL (7-20) H Creatinine 0.9 mg/dL (0.6-1.0) Estimated GFR (Cockcroft-Gault) 62.5 BUN/Creatinine Ratio 34 (6-20) H Glucose Level 87 mg/dL (70-99) Calcium Level 9.1 mg/dL (8.5-10.1) Total Bilirubin 0.4 mg/dL (0.2-1.0) Aspartate Amino Transferase (AST) 19 U/L (15-37) Alanine Aminotransferase (ALT) 19 U/L (14-59) Alkaline Phosphatase 81 U/L (46-116) Total Protein 6.9 g/dL (6.4-8.2) Albumin 3.0 g/dL (3.4-5.0) L Albumin/Globulin Ratio 0.8 (1.0-1.7) L Valproic Acid Level 54 mcg/mL (50-100) Valproic Acid Last Dose Date 04/11/2021 Valproic Acid Last Dose Time 2100 SARS-CoV-2 (PCR) Not detected (NOT DETECTD) Current Medications: Meds: Laboratory Tests Test 04/12/21 05:53 04/12/21 06:00 White Blood Count 6.9 x10^3/uL Red Blood Count 3.57 x10^6/uL Hemoglobin 9.7 g/dL Hematocrit 29.8 % Mean Corpuscular Volume 84 fL Mean Corpuscular Hemoglobin 27 pg Mean Corpuscular Hemoglobin Concent 33 g/dL Red Cell Distribution Width 17.7 % Platelet Count 253 x10^3/uL Neutrophils (%) (Auto) 72 % Lymphocytes (%) (Auto) 15 % Monocytes (%) (Auto) 11 % Eosinophils (%) (Auto) 2 % Basophils (%) (Auto) 1 % Neutrophils # (Auto) 4.9 x10^3uL Lymphocytes # (Auto) 1.0 x10^3/uL Monocytes # (Auto) 0.7 x10^3/uL Eosinophils # (Auto) 0.2 x10^3/uL Basophils # (Auto) 0.0 x10^3/uL Sodium Level 129 mmol/L Potassium Level 5.4 mmol/L Chloride Level 94 mmol/L Carbon Dioxide Level 35 mmol/L Anion Gap 0 Blood Urea Nitrogen 31 mg/dL Creatinine 0.9 mg/dL Estimated GFR (Cockcroft-Gault) 62.5 BUN/Creatinine Ratio 34 Glucose Level 87 mg/dL Calcium Level 9.1 mg/dL Total Bilirubin 0.4 mg/dL Aspartate Amino Transf (AST/SGOT) 19 U/L Alanine Aminotransferase (ALT/SGPT) 19 U/L Alkaline Phosphatase 81 U/L Total Protein 6.9 g/dL Albumin 3.0 g/dL Albumin/Globulin Ratio 0.8 Valproic Acid (Depakene) Level 54 mcg/mL Valproic Acid Last Dose Date 04/11/2021 Valproic Acid Last Dose Time 2099 Coronavirus (COVID-19)(PCR) Not detected Current Medications Medications (Trade) Dose Ordered Sig/Indra Route PRN Reason Start Time Stop Time Status Last Admin Dose Admin Albuterol Sulfate (Ventolin) 1 mg PRN Q4HRS PRN IH FOR ASTHMA 04/02/21 12:00 UNV Amlodipine Besylate (Norvasc) 5 mg DAILY PO 04/03/21 09:00 04/02/21 13:08 DC Aripiprazole (Abilify) 15 mg DAILY PO 04/03/21 09:00 04/12/21 08:20 Aspirin (Aspirin Enteric Coated) 81 mg DAILY PO 04/03/21 09:00 04/12/21 08:20 Atorvastatin Calcium (Lipitor) 20 mg QHS PO 04/02/21 21:00 04/12/21 19:46 Calcium/Vitamin D (Oscal D 500mg/ 200uts) 1 tab BID PO 04/02/21 21:00 04/02/21 13:08 DC Vitamin D (Vitamin D3) 50,000 unit QWE PO 04/03/21 16:00 04/02/21 13:08 DC Clonazepam (KlonoPIN) 0.5 mg PRN BID PRN PO ANXIETY / AGITATION 04/02/21 12:00 Cancel Diclofenac Sodium (Voltaren) 2 joesph QID TP 04/02/21 13:00 04/12/21 19:47 Divalproex Sodium (Depakote Er) 500 mg HS PO 04/02/21 21:00 04/02/21 13:08 DC Docusate Sodium (Colace) 100 mg BID PO 04/02/21 21:00 04/02/21 13:08 DC Enoxaparin Sodium (Lovenox 40mg Syringe) 40 mg HS SQ 04/02/21 21:00 04/02/21 13:08 DC Ferrous Sulfate (Feosol) 325 mg DAILY PO 04/03/21 09:00 04/02/21 13:08 DC Furosemide (Lasix) 40 mg DAILY PO 04/03/21 09:00 04/02/21 13:08 DC Isosorbide Mononitrate (Imdur) 30 mg DAILY08 PO 04/03/21 08:00 04/12/21 08:18 Ketoconazole (Nizoral 2% Shampoo) 1 joesph PRN DAILY PRN TP DANDRUFF 04/02/21 12:00 04/02/21 13:08 DC Levothyroxine Sodium (Synthroid) 75 mcg DAILY06 PO 04/03/21 06:00 04/12/21 05:26 Metoprolol Tartrate (Lopressor) 12.5 mg BID PO 04/02/21 21:00 04/12/21 08:20 Olanzapine (ZyPREXA ZYDIS) 2.5 mg PRN Q2HR PRN PO ANXIETY / AGITATION 04/02/21 12:00 04/02/21 13:08 DC Pantoprazole Sodium (Protonix) 40 mg DAILY08 PO 04/03/21 08:00 04/12/21 08:18 Polyethylene Glycol (miraLAX) 17 gm PRN BID PRN PO CONSTIPATION, 1ST CHOICE 04/02/21 12:00 04/12/21 20:36 Potassium Chloride (Klor-Con) 20 meq BID PO 04/02/21 21:00 04/12/21 10:44 DC 04/11/21 20:15 Ropinirole HCl (Requip) 0.5 mg HS PO 04/02/21 21:00 04/12/21 19:46 Sennosides (Senna) 8.6 mg BIDACBL PO 04/03/21 07:30 04/02/21 13:08 DC Tramadol HCl (Ultram) 50 mg PRN Q6HRS PRN PO MOD -SEV PAIN 04/02/21 12:00 04/02/21 13:08 DC Triamcinolone Acetonide (Kenalog) 1 joesph PRN Q12HR PRN TP ITCHING 04/02/21 12:00 04/02/21 13:08 DC Vitamin A/Vitamin D (Vitamin A & D Ointment) 1 joesph PRN Q1HR PRN TP DRY SKIN / SCALING 04/02/21 12:00 04/02/21 13:08 DC Non-Formulary Medication (Fluoxetine Hcl (Prozac)) 80 mg DAILY08 PO 04/03/21 08:00 04/02/21 13:08 DC Multi-Ingredient Ointment (Analgesic [place]) 1 joesph PRN QID PRN TP MUSCLE PAIN 04/02/21 12:45 Non-Formulary Medication (Olodaterol HCl (Striverdi Respimat)) 2 puff DAILY IH 04/03/21 09:00 04/02/21 13:08 DC Non-Formulary Medication (Quetiapine Fumarate (Seroquel)) 300 mg DAILY08 PO 04/03/21 08:00 04/02/21 13:08 DC Non-Formulary Medication (Quetiapine Fumarate (Seroquel)) 600 mg HS PO 04/02/21 21:00 04/02/21 13:08 DC Acetaminophen (Tylenol) 650 mg PRN Q6HRS PRN PO MILD PAIN / TEMP > 100.3'F 04/02/21 12:30 Al Hydroxide/Mg Hydroxide (Mylanta Plus Xs) 15 ml PRN AFTMEALHC PRN PO DYSPEPSIA 04/02/21 12:30 Magnesium Hydroxide (Milk Of Magnesia) 2,400 mg PRN QHS PRN PO CONSTIPATION, 2ND CHOICE 04/02/21 12:30 Albuterol Sulfate (Ventolin Hfa Inhaler) 1 puff PRN Q4HRS PRN INH SOA 04/02/21 12:45 04/04/21 09:12 Albuterol Sulfate (Ventolin) 1 mg PRN Q4HRS PRN IH FOR ASTHMA 04/02/21 13:00 UNV Albuterol/ Ipratropium (Duoneb) 3 ml PRN QID PRN NEB copd 04/02/21 13:00 UNV Non-Formulary Medication (Umeclidinium [place] (Incruse Ellipta)) 62.5 mcg DAILY IH 04/03/21 09:00 UNV Furosemide (Lasix) 80 mg [id number] PO 04/02/21 16:00 04/06/21 16:01 DC 04/06/21 09:03 Fluoxetine HCl (PROzac) 30 mg DAILY08 PO 04/03/21 08:00 04/12/21 08:18 Quetiapine Fumarate (SEROquel) 100 mg HS PO 04/02/21 21:00 04/12/21 19:46 Albuterol/ Ipratropium (Combivent Respimat 20-100 Mcg) 1 puff RTQID INH 04/02/21 16:00 04/12/21 19:46 Fluticasone Furoate (ARNUITY 100mcg ELLIPTA) 1 puff DAILY INH 04/03/21 09:00 04/12/21 08:20 Hydroxyzine HCl (Atarax) 25 mg PRN Q8HRS PRN PO ANXIETY / AGITATION 04/02/21 14:15 04/04/21 17:36 DC Divalproex Sodium (Depakote) 125 mg DAILY PO 04/04/21 09:00 04/08/21 17:07 DC 04/08/21 08:31 Divalproex Sodium (Depakote) 375 mg HS PO 04/03/21 21:00 04/08/21 17:07 DC 04/07/21 20:03 Trazodone HCl (Desyrel) 50 mg PRN QHS PRN PO INSOMNIA 04/04/21 17:15 Hydroxyzine HCl (Atarax) 50 mg PRN Q6HRS PRN PO anxiety 04/04/21 17:15 04/12/21 08:58 Furosemide (Lasix) 80 mg DAILY PO 04/07/21 09:00 04/12/21 08:19 Divalproex Sodium (Depakote) 500 mg HS PO 04/08/21 21:00 04/12/21 19:46 Divalproex Sodium (Depakote) 250 mg DAILY PO 04/09/21 09:00 04/12/21 08:19 Sodium Chloride (Saline Mist Nasal) 1 joesph PRN Q1HR PRN NS NASAL CONGESTION 04/10/21 14:30 04/12/21 19:47 I have reviewed the current psychotropics carefully including drug interactions. Risk benefit ratio favors no change other than as noted in my dictated progress note. Diagnosis: Problems: (1) Schizoaffective disorder, bipolar type (2) Impulse control disorder, unspecified (3) Anxiety disorder, unspecified (4) Major depressive disorder with psychotic features MICHAEL CLARK MD Apr 12, 2021 21:55
[2021-04-13] MEDS: LEVOTHYROXINE 75 MCG TABLET PO SCH (05:34)
[2021-04-13] MEDS: SODIUM CHLORIDE 0.65% NASAL SPRAY 45ML BOTTLE. NS PRN ×2 (05:34→08:27)
[2021-04-13 06:21] VITALS: BP 108/59
--- NOTE | 2021-04-13 08:02 | PDOC ---
Exam Note: [place] Note: This note is a late entry for 04/11/2021 covers elements not covered in my initial note. Subjective: The patient was reviewed at treatment team meeting in the morning on 04/11/2021 with Barbra Lugo, Ada Clifford, and Amanda Lyon (aids social worker), Caity, activity therapy, Niesha and Yesenia WOMACK, discussed and reviewed the chart. The patient slept 6 hours previous night. Appetite 75%. She remains somewhat paranoid, quite well oriented. She is very insistent on changing her retirement. O2 sats 98% on 5 L. She attended 4 groups in the past one week. [facility]. She does seem to have some personality factors worsening her mood lability. I met with her individually in the evening. Review of Systems: Ambulation impaired in wheelchair. No CV, , eye, ENT system symptoms on review. Shortness of breath on O2 supplements. Mental Status Exam: The patient is reasonably alert, oriented, cooperative. Speech is coherent has some latency. Abstraction fair. Computation impaired. Language function intact. Attention span short. Mood and affect remains withdrawn. She was in her room, lights shut off, seated in a wheelchair, really not doing anything and this is how she was before I met with her. We discussed ways to improve interaction. Laboratory Data: Reviewed. Impression: Schizoaffective disorder, bipolar type, depressed. Anxiety disorder unspecified. Impulse control disorder unspecified. Major depressive disorder, with history of psychotic features. Plan: Continue psychotropics mentioned in my initial note. Check valproic acid level on April 13. Adjust Depakote to reach therapeutic level. Assessment: Vital Signs/I&O: Vital Signs Date Time Temp Pulse Resp B/P (MAP) Pulse Ox O2 Delivery O2 Flow Rate FiO2 04/13/21 06:21 97.6 54 18 108/59 (75) 100 04/12/21 16:06 Room Air 04/11/21 16:31 5.0 I & O 04/12/21 04/12/21 04/13/21 14:59 22:59 06:59 Intake Total 480 ml 600 ml Balance 480 ml 600 ml Current Medications: I have reviewed the current psychotropics carefully including drug interactions. Risk benefit ratio favors no change other than as noted in my dictated progress note. Diagnosis: Problems: (1) Schizoaffective disorder, bipolar type (2) Impulse control disorder, unspecified (3) Anxiety disorder, unspecified (4) Major depressive disorder with psychotic features MICHAEL CLARK MD Apr 13, 2021 08:02
--- NOTE | 2021-04-13 08:11 | PDOC ---
Exam Note: [place] Note: This note is a late entry for 04/12/2021 covers elements not covered in my initial note. Subjective: The patient was seen individually on 04/12/2021, discussed and reviewed the chart with Yesenia WOMACK. The patient slept 5-1/4 hours previous night. The patient had [facility] today to help facilitate alternate [facility]. I addressed this with her at some length individually in the evening and she states the nursing aids disregard her request at the [facility] and thats why she wants to change. Potassium is 5.4, defer to Dr. Ryan. Review of Systems: Ambulation impaired in wheelchair. No CV, , eye, ENT system symptoms on review. Mental Status Exam: The patient is oriented reasonably. Speech is coherent. We had lengthy discussion about increasing interactions and not isolating herself as once again she was in her room, lights shut off, seated in a wheelchair before I entered. She seemed insightful after this discussion. No suicidal or homicidal ideation. Laboratory Data: Reviewed. Impression: Schizoaffective disorder, bipolar type, depressed. Anxiety disorder unspecified. Impulse control disorder unspecified. Major depressive disorder, with history of psychotic features. Plan: No change from initial note. Assessment: Vital Signs/I&O: Vital Signs Date Time Temp Pulse Resp B/P (MAP) Pulse Ox O2 Delivery O2 Flow Rate FiO2 04/13/21 06:21 97.6 54 18 108/59 (75) 100 04/12/21 16:06 Room Air 04/11/21 16:31 5.0 I & O 04/12/21 04/12/21 04/13/21 15:00 23:00 07:00 Intake Total 480 ml 600 ml Balance 480 ml 600 ml Current Medications: I have reviewed the current psychotropics carefully including drug interactions. Risk benefit ratio favors no change other than as noted in my dictated progress note. Diagnosis: Problems: (1) Schizoaffective disorder, bipolar type (2) Impulse control disorder, unspecified (3) Anxiety disorder, unspecified (4) Major depressive disorder with psychotic features MICHAEL CLARK MD Apr 13, 2021 08:11
[2021-04-13] MEDS: ARIPiprazole 15 MG TABLET PO SCH (08:28)
[2021-04-13] MEDS: ASPIRIN ENTERIC COATED 81 MG TABLET.DR. PO SCH (08:28)
[2021-04-13] MEDS: ISOSORBIDE MONONITRATE ER 30 MG TAB.ER.24H PO SCH (08:28)
[2021-04-13] MEDS: FUROSEMIDE 80 MG TABLET PO SCH (08:29)
[2021-04-13] MEDS: PANTOPRAZOLE 40 MG TABLET. PO SCH (08:29)
[2021-04-13] MEDS: FLUTICASONE FUROATE 100mcg/INH ELLIPTA INHALER. INH SCH (08:29)
[2021-04-13] MEDS: DIVALPROEX SODIUM 250 MG TABLET.DR. PO SCH ×2 (08:29→20:17)
[2021-04-13] MEDS: IPRATROPIUM/ALBUTEROL 20/100mcg/INH INHALER. INH SCH ×4 (08:30→20:16)
[2021-04-13] MEDS: DICLOFENAC SODIUM 1% TOPICAL GEL 100GM TUBE. TP SCH ×4 (08:30→20:17)
[2021-04-13] MEDS: METOPROLOL TART IMMED RELEASE 25 MG TABLET. PO SCH ×2 (09:00→20:24)
[2021-04-13] MEDS: hydrOXYzine HCL 25 MG TABLET PO PRN (12:21)
[2021-04-13 15:43] VITALS: BP 92/55
[2021-04-13] MEDS: ATORVASTATIN CALCIUM 20 MG TABLET PO SCH (20:17)
[2021-04-13] MEDS: QUEtiapine 100 MG TABLET. PO SCH (20:17)
[2021-04-13] MEDS: rOPINIRole 0.5 MG TABLET. PO SCH (20:17)
--- NOTE | 2021-04-13 21:46 | PDOC ---
Exam Note: [place] Note: Please also refer to the separate dictated note~for this date of service dictated separately.~Patient seen individually. Discussed the patient with Nursing staff reviewed the chart.~Reviewed interim history and current functioning. Reviewed vital signs,~Labs/ Radiology~and current medications noted below. Continue current treatment with the changes noted in the dictated addendum note Assessment: Vital Signs/I&O: Vital Signs Date Time Temp Pulse Resp B/P (MAP) Pulse Ox O2 Delivery O2 Flow Rate FiO2 04/13/21 20:24 79 94/58 04/13/21 15:43 98.3 18 100 04/12/21 16:06 Room Air 04/11/21 16:31 5.0 I & O 04/12/21 04/12/21 04/13/21 15:00 23:00 07:00 Intake Total 480 ml 600 ml Balance 480 ml 600 ml Current Medications: Meds: Current Medications Medications (Trade) Dose Ordered Sig/Indra Route PRN Reason Start Time Stop Time Status Last Admin Dose Admin Albuterol Sulfate (Ventolin) 1 mg PRN Q4HRS PRN IH FOR ASTHMA 04/02/21 12:00 UNV Amlodipine Besylate (Norvasc) 5 mg DAILY PO 04/03/21 09:00 04/02/21 13:08 DC Aripiprazole (Abilify) 15 mg DAILY PO 04/03/21 09:00 04/13/21 08:28 Aspirin (Aspirin Enteric Coated) 81 mg DAILY PO 04/03/21 09:00 04/13/21 08:28 Atorvastatin Calcium (Lipitor) 20 mg QHS PO 04/02/21 21:00 04/13/21 20:17 Calcium/Vitamin D (Oscal D 500mg/ 200uts) 1 tab BID PO 04/02/21 21:00 04/02/21 13:08 DC Vitamin D (Vitamin D3) 50,000 unit QWE PO 04/03/21 16:00 04/02/21 13:08 DC Clonazepam (KlonoPIN) 0.5 mg PRN BID PRN PO ANXIETY / AGITATION 04/02/21 12:00 Cancel Diclofenac Sodium (Voltaren) 2 joesph QID TP 04/02/21 13:00 04/13/21 20:17 Divalproex Sodium (Depakote Er) 500 mg HS PO 04/02/21 21:00 04/02/21 13:08 DC Docusate Sodium (Colace) 100 mg BID PO 04/02/21 21:00 04/02/21 13:08 DC Enoxaparin Sodium (Lovenox 40mg Syringe) 40 mg HS SQ 04/02/21 21:00 04/02/21 13:08 DC Ferrous Sulfate (Feosol) 325 mg DAILY PO 04/03/21 09:00 04/02/21 13:08 DC Furosemide (Lasix) 40 mg DAILY PO 04/03/21 09:00 04/02/21 13:08 DC Isosorbide Mononitrate (Imdur) 30 mg DAILY08 PO 04/03/21 08:00 04/13/21 08:28 Ketoconazole (Nizoral 2% Shampoo) 1 joesph PRN DAILY PRN TP DANDRUFF 04/02/21 12:00 04/02/21 13:08 DC Levothyroxine Sodium (Synthroid) 75 mcg DAILY06 PO 04/03/21 06:00 04/13/21 05:34 Metoprolol Tartrate (Lopressor) 12.5 mg BID PO 04/02/21 21:00 04/12/21 08:20 Olanzapine (ZyPREXA ZYDIS) 2.5 mg PRN Q2HR PRN PO ANXIETY / AGITATION 04/02/21 12:00 04/02/21 13:08 DC Pantoprazole Sodium (Protonix) 40 mg DAILY08 PO 04/03/21 08:00 04/13/21 08:29 Polyethylene Glycol (miraLAX) 17 gm PRN BID PRN PO CONSTIPATION, 1ST CHOICE 04/02/21 12:00 04/12/21 20:36 Potassium Chloride (Klor-Con) 20 meq BID PO 04/02/21 21:00 04/12/21 10:44 DC 04/11/21 20:15 Ropinirole HCl (Requip) 0.5 mg HS PO 04/02/21 21:00 04/13/21 20:17 Sennosides (Senna) 8.6 mg BIDACBL PO 04/03/21 07:30 04/02/21 13:08 DC Tramadol HCl (Ultram) 50 mg PRN Q6HRS PRN PO MOD -SEV PAIN 04/02/21 12:00 04/02/21 13:08 DC Triamcinolone Acetonide (Kenalog) 1 joesph PRN Q12HR PRN TP ITCHING 04/02/21 12:00 04/02/21 13:08 DC Vitamin A/Vitamin D (Vitamin A & D Ointment) 1 joesph PRN Q1HR PRN TP DRY SKIN / SCALING 04/02/21 12:00 04/02/21 13:08 DC Non-Formulary Medication (Fluoxetine Hcl (Prozac)) 80 mg DAILY08 PO 04/03/21 08:00 04/02/21 13:08 DC Multi-Ingredient Ointment (Analgesic [place]) 1 joesph PRN QID PRN TP MUSCLE PAIN 04/02/21 12:45 Non-Formulary Medication (Olodaterol HCl (Striverdi Respimat)) 2 puff DAILY IH 04/03/21 09:00 04/02/21 13:08 DC Non-Formulary Medication (Quetiapine Fumarate (Seroquel)) 300 mg DAILY08 PO 04/03/21 08:00 04/02/21 13:08 DC Non-Formulary Medication (Quetiapine Fumarate (Seroquel)) 600 mg HS PO 04/02/21 21:00 04/02/21 13:08 DC Acetaminophen (Tylenol) 650 mg PRN Q6HRS PRN PO MILD PAIN / TEMP > 100.3'F 04/02/21 12:30 Al Hydroxide/Mg Hydroxide (Mylanta Plus Xs) 15 ml PRN AFTMEALHC PRN PO DYSPEPSIA 04/02/21 12:30 Magnesium Hydroxide (Milk Of Magnesia) 2,400 mg PRN QHS PRN PO CONSTIPATION, 2ND CHOICE 04/02/21 12:30 Albuterol Sulfate (Ventolin Hfa Inhaler) 1 puff PRN Q4HRS PRN INH SOA 04/02/21 12:45 04/04/21 09:12 Albuterol Sulfate (Ventolin) 1 mg PRN Q4HRS PRN IH FOR ASTHMA 04/02/21 13:00 UNV Albuterol/ Ipratropium (Duoneb) 3 ml PRN QID PRN NEB copd 04/02/21 13:00 UNV Non-Formulary Medication (Umeclidinium [place] (Incruse Ellipta)) 62.5 mcg DAILY IH 04/03/21 09:00 UNV Furosemide (Lasix) 80 mg BID94 PO 04/02/21 16:00 04/06/21 16:01 DC 04/06/21 09:03 Fluoxetine HCl (PROzac) 30 mg DAILY08 PO 04/03/21 08:00 04/13/21 08:28 Quetiapine Fumarate (SEROquel) 100 mg HS PO 04/02/21 21:00 04/13/21 20:17 Albuterol/ Ipratropium (Combivent Respimat 20-100 Mcg) 1 puff RTQID INH 04/02/21 16:00 04/13/21 20:16 Fluticasone Furoate (ARNUITY 100mcg ELLIPTA) 1 puff DAILY INH 04/03/21 09:00 04/13/21 08:29 Hydroxyzine HCl (Atarax) 25 mg PRN Q8HRS PRN PO ANXIETY / AGITATION 04/02/21 14:15 04/04/21 17:36 DC Divalproex Sodium (Depakote) 125 mg DAILY PO 04/04/21 09:00 04/08/21 17:07 DC 04/08/21 08:31 Divalproex Sodium (Depakote) 375 mg HS PO 04/03/21 21:00 04/08/21 17:07 DC 04/07/21 20:03 Trazodone HCl (Desyrel) 50 mg PRN QHS PRN PO INSOMNIA, MAY REPEAT X1 04/04/21 17:15 Hydroxyzine HCl (Atarax) 50 mg PRN Q6HRS PRN PO anxiety 04/04/21 17:15 04/13/21 12:21 Furosemide (Lasix) 80 mg DAILY PO 04/07/21 09:00 04/13/21 08:29 Divalproex Sodium (Depakote) 500 mg HS PO 04/08/21 21:00 04/13/21 20:17 Divalproex Sodium (Depakote) 250 mg DAILY PO 04/09/21 09:00 04/13/21 08:29 Sodium Chloride (Saline Mist Nasal) 1 joesph PRN Q1HR PRN NS NASAL CONGESTION 04/10/21 14:30 04/13/21 08:27 I have reviewed the current psychotropics carefully including drug interactions. Risk benefit ratio favors no change other than as noted in my dictated progress note. Diagnosis: Problems: (1) Schizoaffective disorder, bipolar type (2) Impulse control disorder, unspecified (3) Anxiety disorder, unspecified (4) Major depressive disorder with psychotic features MICHAEL CLARK MD Apr 13, 2021 21:46
[2021-04-14] MEDS: LEVOTHYROXINE 75 MCG TABLET PO SCH (04:59)
[2021-04-14] MEDS: POLYETHYLENE GLYCOL 3350 17 GM PACKET. PO PRN (04:59)
[2021-04-14 05:47] VITALS: BP 115/74
[2021-04-14] MEDS: DICLOFENAC SODIUM 1% TOPICAL GEL 100GM TUBE. TP SCH ×4 (08:34→20:35)
[2021-04-14] MEDS: ARIPiprazole 15 MG TABLET PO SCH (08:34)
[2021-04-14] MEDS: FLUTICASONE FUROATE 100mcg/INH ELLIPTA INHALER. INH SCH (08:34)
[2021-04-14] MEDS: DIVALPROEX SODIUM 250 MG TABLET.DR. PO SCH ×2 (08:34→20:34)
[2021-04-14] MEDS: IPRATROPIUM/ALBUTEROL 20/100mcg/INH INHALER. INH SCH ×4 (08:34→20:35)
[2021-04-14] MEDS: SODIUM CHLORIDE 0.65% NASAL SPRAY 45ML BOTTLE. NS PRN ×4 (08:34→20:35)
[2021-04-14] MEDS: ISOSORBIDE MONONITRATE ER 30 MG TAB.ER.24H PO SCH (08:34)
[2021-04-14] MEDS: FUROSEMIDE 80 MG TABLET PO SCH (08:35)
[2021-04-14] MEDS: ASPIRIN ENTERIC COATED 81 MG TABLET.DR. PO SCH (08:36)
[2021-04-14] MEDS: METOPROLOL TART IMMED RELEASE 25 MG TABLET. PO SCH ×2 (08:36→20:34)
[2021-04-14] MEDS: PANTOPRAZOLE 40 MG TABLET. PO SCH (08:36)
[2021-04-14 16:36] VITALS: BP 99/64
[2021-04-14] MEDS: hydrOXYzine HCL 25 MG TABLET PO PRN (16:40)
[2021-04-14] MEDS: QUEtiapine 100 MG TABLET. PO SCH (20:34)
[2021-04-14] MEDS: ATORVASTATIN CALCIUM 20 MG TABLET PO SCH (20:34)
[2021-04-14] MEDS: rOPINIRole 0.5 MG TABLET. PO SCH (20:34)
--- NOTE | 2021-04-14 21:46 | PDOC ---
Exam Note: [place] Note: Please also refer to the separate dictated note~for this date of service dictated separately.~Patient seen individually. Discussed the patient with Nursing staff reviewed the chart.~Reviewed interim history and current functioning. Reviewed vital signs,~Labs/ Radiology~and current medications noted below. Continue current treatment with the changes noted in the dictated addendum note Assessment: Vital Signs/I&O: Vital Signs Date Time Temp Pulse Resp B/P (MAP) Pulse Ox O2 Delivery O2 Flow Rate FiO2 04/14/21 20:34 69 99/64 04/14/21 16:36 98.0 20 99 Nasal Cannula 5.0 I & O 04/13/21 04/13/21 04/14/21 15:00 23:00 07:00 Intake Total 760 ml 600 ml Balance 760 ml 600 ml Current Medications: Meds: Current Medications Medications (Trade) Dose Ordered Sig/Inrda Route PRN Reason Start Time Stop Time Status Last Admin Dose Admin Albuterol Sulfate (Ventolin) 1 mg PRN Q4HRS PRN IH FOR ASTHMA 04/02/21 12:00 UNV Amlodipine Besylate (Norvasc) 5 mg DAILY PO 04/03/21 09:00 04/02/21 13:08 DC Aripiprazole (Abilify) 15 mg DAILY PO 04/03/21 09:00 04/14/21 08:34 Aspirin (Aspirin Enteric Coated) 81 mg DAILY PO 04/03/21 09:00 04/14/21 08:36 Atorvastatin Calcium (Lipitor) 20 mg QHS PO 04/02/21 21:00 04/14/21 20:34 Calcium/Vitamin D (Oscal D 500mg/ 200uts) 1 tab BID PO 04/02/21 21:00 04/02/21 13:08 DC Vitamin D (Vitamin D3) 50,000 unit QWE PO 04/03/21 16:00 04/02/21 13:08 DC Clonazepam (KlonoPIN) 0.5 mg PRN BID PRN PO ANXIETY / AGITATION 04/02/21 12:00 Cancel Diclofenac Sodium (Voltaren) 2 joesph QID TP 04/02/21 13:00 04/14/21 20:35 Divalproex Sodium (Depakote Er) 500 mg HS PO 04/02/21 21:00 04/02/21 13:08 DC Docusate Sodium (Colace) 100 mg BID PO 04/02/21 21:00 04/02/21 13:08 DC Enoxaparin Sodium (Lovenox 40mg Syringe) 40 mg HS SQ 04/02/21 21:00 04/02/21 13:08 DC Ferrous Sulfate (Feosol) 325 mg DAILY PO 04/03/21 09:00 04/02/21 13:08 DC Furosemide (Lasix) 40 mg DAILY PO 04/03/21 09:00 04/02/21 13:08 DC Isosorbide Mononitrate (Imdur) 30 mg DAILY08 PO 04/03/21 08:00 04/14/21 08:34 Ketoconazole (Nizoral 2% Shampoo) 1 joesph PRN DAILY PRN TP DANDRUFF 04/02/21 12:00 04/02/21 13:08 DC Levothyroxine Sodium (Synthroid) 75 mcg DAILY06 PO 04/03/21 06:00 04/14/21 04:59 Metoprolol Tartrate (Lopressor) 12.5 mg BID PO 04/02/21 21:00 04/14/21 20:34 Olanzapine (ZyPREXA ZYDIS) 2.5 mg PRN Q2HR PRN PO ANXIETY / AGITATION 04/02/21 12:00 04/02/21 13:08 DC Pantoprazole Sodium (Protonix) 40 mg DAILY08 PO 04/03/21 08:00 04/14/21 08:36 Polyethylene Glycol (miraLAX) 17 gm PRN BID PRN PO CONSTIPATION, 1ST CHOICE 04/02/21 12:00 04/14/21 04:59 Potassium Chloride (Klor-Con) 20 meq BID PO 04/02/21 21:00 04/12/21 10:44 DC 04/11/21 20:15 Ropinirole HCl (Requip) 0.5 mg HS PO 04/02/21 21:00 04/14/21 20:34 Sennosides (Senna) 8.6 mg BIDACBL PO 04/03/21 07:30 04/02/21 13:08 DC Tramadol HCl (Ultram) 50 mg PRN Q6HRS PRN PO MOD -SEV PAIN 04/02/21 12:00 04/02/21 13:08 DC Triamcinolone Acetonide (Kenalog) 1 joesph PRN Q12HR PRN TP ITCHING 04/02/21 12:00 04/02/21 13:08 DC Vitamin A/Vitamin D (Vitamin A & D Ointment) 1 joesph PRN Q1HR PRN TP DRY SKIN / SCALING 04/02/21 12:00 04/02/21 13:08 DC Non-Formulary Medication (Fluoxetine Hcl (Prozac)) 80 mg DAILY08 PO 04/03/21 08:00 04/02/21 13:08 DC Multi-Ingredient Ointment (Analgesic [place]) 1 joesph PRN QID PRN TP MUSCLE PAIN 04/02/21 12:45 Non-Formulary Medication (Olodaterol HCl (Striverdi Respimat)) 2 puff DAILY IH 04/03/21 09:00 04/02/21 13:08 DC Non-Formulary Medication (Quetiapine Fumarate (Seroquel)) 300 mg DAILY08 PO 04/03/21 08:00 04/02/21 13:08 DC Non-Formulary Medication (Quetiapine Fumarate (Seroquel)) 600 mg HS PO 04/02/21 21:00 04/02/21 13:08 DC Acetaminophen (Tylenol) 650 mg PRN Q6HRS PRN PO MILD PAIN / TEMP > 100.3'F 04/02/21 12:30 Al Hydroxide/Mg Hydroxide (Mylanta Plus Xs) 15 ml PRN AFTMEALHC PRN PO DYSPEPSIA 04/02/21 12:30 Magnesium Hydroxide (Milk Of Magnesia) 2,400 mg PRN QHS PRN PO CONSTIPATION, 2ND CHOICE 04/02/21 12:30 Albuterol Sulfate (Ventolin Hfa Inhaler) 1 puff PRN Q4HRS PRN INH SOA 04/02/21 12:45 04/04/21 09:12 Albuterol Sulfate (Ventolin) 1 mg PRN Q4HRS PRN IH FOR ASTHMA 04/02/21 13:00 UNV Albuterol/ Ipratropium (Duoneb) 3 ml PRN QID PRN NEB copd 04/02/21 13:00 UNV Non-Formulary Medication (Umeclidinium [place] (Incruse Ellipta)) 62.5 mcg DAILY IH 04/03/21 09:00 UNV Furosemide (Lasix) 80 mg BID94 PO 04/02/21 16:00 04/06/21 16:01 DC 04/06/21 09:03 Fluoxetine HCl (PROzac) 30 mg DAILY08 PO 04/03/21 08:00 04/14/21 08:35 Quetiapine Fumarate (SEROquel) 100 mg HS PO 04/02/21 21:00 04/14/21 20:34 Albuterol/ Ipratropium (Combivent Respimat 20-100 Mcg) 1 puff RTQID INH 04/02/21 16:00 04/14/21 20:35 Fluticasone Furoate (ARNUITY 100mcg ELLIPTA) 1 puff DAILY INH 04/03/21 09:00 04/14/21 08:34 Hydroxyzine HCl (Atarax) 25 mg PRN Q8HRS PRN PO ANXIETY / AGITATION 04/02/21 14:15 04/04/21 17:36 DC Divalproex Sodium (Depakote) 125 mg DAILY PO 04/04/21 09:00 04/08/21 17:07 DC 04/08/21 08:31 Divalproex Sodium (Depakote) 375 mg HS PO 04/03/21 21:00 04/08/21 17:07 DC 04/07/21 20:03 Trazodone HCl (Desyrel) 50 mg PRN QHS PRN PO INSOMNIA, MAY REPEAT X1 04/04/21 17:15 Hydroxyzine HCl (Atarax) 50 mg PRN Q6HRS PRN PO anxiety 04/04/21 17:15 04/14/21 16:40 Furosemide (Lasix) 80 mg DAILY PO 04/07/21 09:00 04/14/21 08:35 Divalproex Sodium (Depakote) 500 mg HS PO 04/08/21 21:00 04/14/21 20:34 Divalproex Sodium (Depakote) 250 mg DAILY PO 04/09/21 09:00 04/14/21 08:34 Sodium Chloride (Saline Mist Nasal) 1 joesph PRN Q1HR PRN NS NASAL CONGESTION 04/10/21 14:30 04/14/21 20:35 I have reviewed the current psychotropics carefully including drug interactions. Risk benefit ratio favors no change other than as noted in my dictated progress note. Diagnosis: Problems: (1) Schizoaffective disorder, bipolar type (2) Impulse control disorder, unspecified (3) Anxiety disorder, unspecified (4) Major depressive disorder with psychotic features MICHAEL CLARK MD Apr 14, 2021 21:46
[2021-04-15] MEDS: LEVOTHYROXINE 75 MCG TABLET PO SCH (05:38)
[2021-04-15 05:42] VITALS: BP 88/57
[2021-04-15] MEDS: hydrOXYzine HCL 25 MG TABLET PO PRN (05:54)
--- NOTE | 2021-04-15 07:12 | PDOC ---
Exam Note: [place] Note: This note is a late entry for 04/13/2021 covers elements not covered in my initial note. Subjective: The patient was seen individually on 04/13/2021, discussed and reviewed the chart with Jayy WOMACK. The patient slept 5-1/2 hours previous night. Overall she remains withdrawn in her room, appropriate. No suicidal ideation. Review of Systems: Ambulation impaired in wheelchair. She complains of some discoloration in lower extremities. We will defer to Dr. Lowe/Dr. Ryan. No CV, , eye, ENT system symptoms on review. Mental Status Exam: The patient is oriented reasonably. Speech is coherent. Abstraction fair. Computation impaired. Language function intact. Mood and affect improved though she was sitting in her room with the lights shut when I went to visit with her and she prefers it this way. Laboratory Data: Reviewed. Impression: Schizoaffective disorder, bipolar type, depressed. Anxiety disorder unspecified. Impulse control disorder unspecified. Major depressive disorder, with history of psychotic features. Plan: No change from initial note. Adjust as clinically indicated. Assessment: Vital Signs/I&O: Vital Signs Date Time Temp Pulse Resp B/P (MAP) Pulse Ox O2 Delivery O2 Flow Rate FiO2 04/15/21 05:42 97.5 68 16 88/57 (67) 98 Nasal Cannula 5.0 I & O 04/14/21 04/14/21 04/15/21 15:00 23:00 07:00 Intake Total 480 ml 480 ml Balance 480 ml 480 ml Current Medications: I have reviewed the current psychotropics carefully including drug interactions. Risk benefit ratio favors no change other than as noted in my dictated progress note. Diagnosis: Problems: (1) Schizoaffective disorder, bipolar type (2) Impulse control disorder, unspecified (3) Anxiety disorder, unspecified (4) Major depressive disorder with psychotic features MICHAEL CLARK MD Apr 15, 2021 07:12
--- NOTE | 2021-04-15 07:45 | PDOC ---
Exam Note: [place] Note: This note is a late entry for 04/14/2021 covers elements not covered in my initial note. Subjective: The patient was seen individually on 04/14/2021, discussed and reviewed the chart with Joao WOMACK. The patient slept 5-3/4 hours previous night. The patient has been flat, withdrawn. No suicidal ideation. Again she was sitting in a dark room as I met with her but she asked me to turn the lights on and later had left them on. Review of Systems: Ambulation impaired in wheelchair. No CV, , eye, ENT system symptoms on review. Her discomfort in lower extremity is better today. Mental Status Exam: The patient is verbal, interactive, oriented reasonably. Speech is coherent. Abstraction fair. Computation impaired. Language function intact. Mood and affect improved. No suicidal ideation. Laboratory Data: Reviewed. Impression: Schizoaffective disorder, bipolar type, depressed. Anxiety disorder unspecified. Impulse control disorder unspecified. Major depressive disorder, with history of psychotic features. Plan: No change from initial note. Assessment: Vital Signs/I&O: Vital Signs Date Time Temp Pulse Resp B/P (MAP) Pulse Ox O2 Delivery O2 Flow Rate FiO2 04/15/21 05:42 97.5 68 16 88/57 (67) 98 Nasal Cannula 5.0 I & O 0 04/14/21 04/14/21 04/15/21 15:00 23:00 07:00 Intake Total 480 ml 480 ml Balance 480 ml 480 ml Current Medications: I have reviewed the current psychotropics carefully including drug interactions. Risk benefit ratio favors no change other than as noted in my dictated progress note. Diagnosis: Problems: (1) Bipolar 1 disorder, mixed, partial remission (2) Schizoaffective disorder, bipolar type (3) Impulse control disorder, unspecified (4) Anxiety disorder, unspecified (5) Major depressive disorder with psychotic features MICHAEL CLARK MD Apr 15, 2021 07:44
[2021-04-15] MEDS: IPRATROPIUM/ALBUTEROL 20/100mcg/INH INHALER. INH SCH ×4 (07:51→20:23)
[2021-04-15] MEDS: ARIPiprazole 15 MG TABLET PO SCH (07:53)
[2021-04-15] MEDS: DICLOFENAC SODIUM 1% TOPICAL GEL 100GM TUBE. TP SCH ×4 (07:53→20:22)
[2021-04-15] MEDS: PANTOPRAZOLE 40 MG TABLET. PO SCH (07:54)
[2021-04-15] MEDS: ISOSORBIDE MONONITRATE ER 30 MG TAB.ER.24H PO SCH (07:54)
[2021-04-15] MEDS: FUROSEMIDE 80 MG TABLET PO SCH (07:55)
[2021-04-15] MEDS: METOPROLOL TART IMMED RELEASE 25 MG TABLET. PO SCH ×2 (07:55→20:23)
[2021-04-15] MEDS: DIVALPROEX SODIUM 250 MG TABLET.DR. PO SCH ×2 (07:56→20:22)
[2021-04-15] MEDS: ASPIRIN ENTERIC COATED 81 MG TABLET.DR. PO SCH (07:57)
[2021-04-15] MEDS: FLUTICASONE FUROATE 100mcg/INH ELLIPTA INHALER. INH SCH (07:57)
[2021-04-15 15:57] VITALS: BP 90/56
[2021-04-15] MEDS: SODIUM CHLORIDE 0.65% NASAL SPRAY 45ML BOTTLE. NS PRN (16:54)
[2021-04-15] MEDS: traZODone 50 MG TABLET. PO PRN (20:22)
[2021-04-15] MEDS: rOPINIRole 0.5 MG TABLET. PO SCH (20:22)
[2021-04-15] MEDS: QUEtiapine 100 MG TABLET. PO SCH (20:22)
[2021-04-15] MEDS: ATORVASTATIN CALCIUM 20 MG TABLET PO SCH (20:22)
--- NOTE | 2021-04-15 21:20 | PDOC ---
Exam Note: [place] Note: Please also refer to the separate dictated note~for this date of service dictated separately.~Patient seen individually. Discussed the patient with Nursing staff reviewed the chart.~Reviewed interim history and current functioning. Reviewed vital signs,~Labs/ Radiology~and current medications noted below. Continue current treatment with the changes noted in the dictated addendum note Assessment: Vital Signs/I&O: Vital Signs Date Time Temp Pulse Resp B/P (MAP) Pulse Ox O2 Delivery O2 Flow Rate FiO2 04/15/21 20:23 82 90/56 04/15/21 15:57 98.0 20 93 Nasal Cannula 5.0 I & O 04/14/21 04/14/21 04/15/21 15:00 23:00 07:00 Intake Total 480 ml 480 ml Balance 480 ml 480 ml Current Medications: Meds: Current Medications Medications (Trade) Dose Ordered Sig/Indra Route PRN Reason Start Time Stop Time Status Last Admin Dose Admin Albuterol Sulfate (Ventolin) 1 mg PRN Q4HRS PRN IH FOR ASTHMA 04/02/21 12:00 UNV Amlodipine Besylate (Norvasc) 5 mg DAILY PO 04/03/21 09:00 04/02/21 13:08 DC Aripiprazole (Abilify) 15 mg DAILY PO 04/03/21 09:00 04/15/21 07:53 Aspirin (Aspirin Enteric Coated) 81 mg DAILY PO 04/03/21 09:00 04/15/21 07:57 Atorvastatin Calcium (Lipitor) 20 mg QHS PO 04/02/21 21:00 04/15/21 20:22 Calcium/Vitamin D (Oscal D 500mg/ 200uts) 1 tab BID PO 04/02/21 21:00 04/02/21 13:08 DC Vitamin D (Vitamin D3) 50,000 unit QWE PO 04/03/21 16:00 04/02/21 13:08 DC Clonazepam (KlonoPIN) 0.5 mg PRN BID PRN PO ANXIETY / AGITATION 04/02/21 12:00 Cancel Diclofenac Sodium (Voltaren) 2 joesph QID TP 04/02/21 13:00 04/15/21 20:22 Divalproex Sodium (Depakote Er) 500 mg HS PO 04/02/21 21:00 04/02/21 13:08 DC Docusate Sodium (Colace) 100 mg BID PO 04/02/21 21:00 04/02/21 13:08 DC Enoxaparin Sodium (Lovenox 40mg Syringe) 40 mg HS SQ 04/02/21 21:00 04/02/21 13:08 DC Ferrous Sulfate (Feosol) 325 mg DAILY PO 04/03/21 09:00 04/02/21 13:08 DC Furosemide (Lasix) 40 mg DAILY PO 04/03/21 09:00 04/02/21 13:08 DC Isosorbide Mononitrate (Imdur) 30 mg DAILY08 PO 04/03/21 08:00 04/15/21 07:54 Ketoconazole (Nizoral 2% Shampoo) 1 joesph PRN DAILY PRN TP DANDRUFF 04/02/21 12:00 04/02/21 13:08 DC Levothyroxine Sodium (Synthroid) 75 mcg DAILY06 PO 04/03/21 06:00 04/15/21 05:38 Metoprolol Tartrate (Lopressor) 12.5 mg BID PO 04/02/21 21:00 04/14/21 20:34 Olanzapine (ZyPREXA ZYDIS) 2.5 mg PRN Q2HR PRN PO ANXIETY / AGITATION 04/02/21 12:00 04/02/21 13:08 DC Pantoprazole Sodium (Protonix) 40 mg DAILY08 PO 04/03/21 08:00 04/15/21 07:54 Polyethylene Glycol (miraLAX) 17 gm PRN BID PRN PO CONSTIPATION, 1ST CHOICE 04/02/21 12:00 04/14/21 04:59 Potassium Chloride (Klor-Con) 20 meq BID PO 04/02/21 21:00 04/12/21 10:44 DC 04/11/21 20:15 Ropinirole HCl (Requip) 0.5 mg HS PO 04/02/21 21:00 04/15/21 20:22 Sennosides (Senna) 8.6 mg BIDACBL PO 04/03/21 07:30 04/02/21 13:08 DC Tramadol HCl (Ultram) 50 mg PRN Q6HRS PRN PO MOD -SEV PAIN 04/02/21 12:00 04/02/21 13:08 DC Triamcinolone Acetonide (Kenalog) 1 joesph PRN Q12HR PRN TP ITCHING 04/02/21 12:00 04/02/21 13:08 DC Vitamin A/Vitamin D (Vitamin A & D Ointment) 1 joesph PRN Q1HR PRN TP DRY SKIN / SCALING 04/02/21 12:00 04/02/21 13:08 DC Non-Formulary Medication (Fluoxetine Hcl (Prozac)) 80 mg DAILY08 PO 04/03/21 08:00 04/02/21 13:08 DC Multi-Ingredient Ointment (Analgesic [place]) 1 joesph PRN QID PRN TP MUSCLE PAIN 04/02/21 12:45 Non-Formulary Medication (Olodaterol HCl (Striverdi Respimat)) 2 puff DAILY IH 04/03/21 09:00 04/02/21 13:08 DC Non-Formulary Medication (Quetiapine Fumarate (Seroquel)) 300 mg DAILY08 PO 04/03/21 08:00 04/02/21 13:08 DC Non-Formulary Medication (Quetiapine Fumarate (Seroquel)) 600 mg HS PO 04/02/21 21:00 04/02/21 13:08 DC Acetaminophen (Tylenol) 650 mg PRN Q6HRS PRN PO MILD PAIN / TEMP > 100.3'F 04/02/21 12:30 Al Hydroxide/Mg Hydroxide (Mylanta Plus Xs) 15 ml PRN AFTMEALHC PRN PO DYSPEPSIA 04/02/21 12:30 Magnesium Hydroxide (Milk Of Magnesia) 2,400 mg PRN QHS PRN PO CONSTIPATION, 2ND CHOICE 04/02/21 12:30 Albuterol Sulfate (Ventolin Hfa Inhaler) 1 puff PRN Q4HRS PRN INH SOA 04/02/21 12:45 04/04/21 09:12 Albuterol Sulfate (Ventolin) 1 mg PRN Q4HRS PRN IH FOR ASTHMA 04/02/21 13:00 UNV Albuterol/ Ipratropium (Duoneb) 3 ml PRN QID PRN NEB copd 04/02/21 13:00 UNV Non-Formulary Medication (Umeclidinium [place] (Incruse Ellipta)) 62.5 mcg DAILY IH 04/03/21 09:00 UNV Furosemide (Lasix) 80 mg BID94 PO 04/02/21 16:00 04/06/21 16:01 DC 04/06/21 09:03 Fluoxetine HCl (PROzac) 30 mg DAILY08 PO 04/03/21 08:00 04/15/21 07:57 Quetiapine Fumarate (SEROquel) 100 mg HS PO 04/02/21 21:00 04/15/21 20:22 Albuterol/ Ipratropium (Combivent Respimat 20-100 Mcg) 1 puff RTQID INH 04/02/21 16:00 04/15/21 20:23 Fluticasone Furoate (ARNUITY 100mcg ELLIPTA) 1 puff DAILY INH 04/03/21 09:00 04/15/21 07:57 Hydroxyzine HCl (Atarax) 25 mg PRN Q8HRS PRN PO ANXIETY / AGITATION 04/02/21 14:15 04/04/21 17:36 DC Divalproex Sodium (Depakote) 125 mg DAILY PO 04/04/21 09:00 04/08/21 17:07 DC 04/08/21 08:31 Divalproex Sodium (Depakote) 375 mg HS PO 04/03/21 21:00 04/08/21 17:07 DC 04/07/21 20:03 Trazodone HCl (Desyrel) 50 mg PRN QHS PRN PO INSOMNIA, MAY REPEAT X1 04/04/21 17:15 04/15/21 20:22 Hydroxyzine HCl (Atarax) 50 mg PRN Q6HRS PRN PO anxiety 04/04/21 17:15 04/15/21 05:54 Furosemide (Lasix) 80 mg DAILY PO 04/07/21 09:00 04/15/21 07:55 Divalproex Sodium (Depakote) 500 mg HS PO 04/08/21 21:00 04/15/21 20:22 Divalproex Sodium (Depakote) 250 mg DAILY PO 04/09/21 09:00 04/15/21 07:56 Sodium Chloride (Saline Mist Nasal) 1 joesph PRN Q1HR PRN NS NASAL CONGESTION 04/10/21 14:30 04/15/21 16:54 I have reviewed the current psychotropics carefully including drug interactions. Risk benefit ratio favors no change other than as noted in my dictated progress note. Diagnosis: Problems: (1) Schizoaffective disorder, bipolar type (2) Impulse control disorder, unspecified (3) Anxiety disorder, unspecified (4) Major depressive disorder with psychotic features (5) Bipolar 1 disorder, mixed, partial remission MICHAEL CLARK MD Apr 15, 2021 21:20
[2021-04-16] MEDS: LEVOTHYROXINE 75 MCG TABLET PO SCH (04:53)
[2021-04-16 06:09] VITALS: BP 102/58
[2021-04-16] MEDS: IPRATROPIUM/ALBUTEROL 20/100mcg/INH INHALER. INH SCH ×4 (08:15→19:45)
[2021-04-16] MEDS: FLUTICASONE FUROATE 100mcg/INH ELLIPTA INHALER. INH SCH (08:16)
[2021-04-16] MEDS: DICLOFENAC SODIUM 1% TOPICAL GEL 100GM TUBE. TP SCH ×4 (08:18→19:45)
[2021-04-16] MEDS: PANTOPRAZOLE 40 MG TABLET. PO SCH (08:18)
[2021-04-16] MEDS: ISOSORBIDE MONONITRATE ER 30 MG TAB.ER.24H PO SCH (08:18)
[2021-04-16] MEDS: ARIPiprazole 15 MG TABLET PO SCH (08:18)
[2021-04-16] MEDS: DIVALPROEX SODIUM 250 MG TABLET.DR. PO SCH ×2 (08:19→19:44)
[2021-04-16] MEDS: FUROSEMIDE 80 MG TABLET PO SCH (08:19)
[2021-04-16] MEDS: METOPROLOL TART IMMED RELEASE 25 MG TABLET. PO SCH ×2 (08:20→19:45)
[2021-04-16] MEDS: ASPIRIN ENTERIC COATED 81 MG TABLET.DR. PO SCH (08:20)
[2021-04-16] MEDS: SODIUM CHLORIDE 0.65% NASAL SPRAY 45ML BOTTLE. NS PRN ×2 (12:41→19:46)
[2021-04-16 16:10] VITALS: BP 93/60
[2021-04-16] MEDS: hydrOXYzine HCL 25 MG TABLET PO PRN ×2 (16:12→19:44)
[2021-04-16] MEDS: ATORVASTATIN CALCIUM 20 MG TABLET PO SCH (19:44)
[2021-04-16] MEDS: rOPINIRole 0.5 MG TABLET. PO SCH (19:44)
[2021-04-16] MEDS: QUEtiapine 100 MG TABLET. PO SCH (19:44)
[2021-04-16] MEDS: traZODone 50 MG TABLET. PO PRN (19:44)
--- NOTE | 2021-04-16 21:29 | PDOC ---
Exam Note: [place] Note: Please also refer to the separate dictated note~for this date of service dictated separately.~Patient seen individually. Discussed the patient with Nursing staff reviewed the chart.~Reviewed interim history and current functioning. Reviewed vital signs,~Labs/ Radiology~and current medications noted below. Continue current treatment with the changes noted in the dictated addendum note Assessment: Vital Signs/I&O: Vital Signs Date Time Temp Pulse Resp B/P (MAP) Pulse Ox O2 Delivery O2 Flow Rate FiO2 04/16/21 19:45 77 93/60 04/16/21 16:10 98.2 20 97 Nasal Cannula 5.0 I & O 04/15/21 04/15/21 04/16/21 15:00 23:00 07:00 Intake Total 480 ml 340 ml Balance 480 ml 340 ml Labs: Laboratory Tests Test 04/16/21 06:00 SARS-CoV-2 (PCR) Not detected (NOT DETECTD) Current Medications: Meds: Laboratory Tests Test 04/16/21 06:00 Coronavirus (COVID-19)(PCR) Not detected Current Medications Medications (Trade) Dose Ordered Sig/Indra Route PRN Reason Start Time Stop Time Status Last Admin Dose Admin Albuterol Sulfate (Ventolin) 1 mg PRN Q4HRS PRN IH FOR ASTHMA 04/02/21 12:00 UNV Amlodipine Besylate (Norvasc) 5 mg DAILY PO 04/03/21 09:00 04/02/21 13:08 DC Aripiprazole (Abilify) 15 mg DAILY PO 04/03/21 09:00 04/16/21 08:18 Aspirin (Aspirin Enteric Coated) 81 mg DAILY PO 04/03/21 09:00 04/16/21 08:20 Atorvastatin Calcium (Lipitor) 20 mg QHS PO 04/02/21 21:00 04/16/21 19:44 Calcium/Vitamin D (Oscal D 500mg/ 200uts) 1 tab BID PO 04/02/21 21:00 04/02/21 13:08 DC Vitamin D (Vitamin D3) 50,000 unit QWE PO 04/03/21 16:00 04/02/21 13:08 DC Clonazepam (KlonoPIN) 0.5 mg PRN BID PRN PO ANXIETY / AGITATION 04/02/21 12:00 Cancel Diclofenac Sodium (Voltaren) 2 joesph QID TP 04/02/21 13:00 04/16/21 19:45 Divalproex Sodium (Depakote Er) 500 mg HS PO 04/02/21 21:00 04/02/21 13:08 DC Docusate Sodium (Colace) 100 mg BID PO 04/02/21 21:00 04/02/21 13:08 DC Enoxaparin Sodium (Lovenox 40mg Syringe) 40 mg HS SQ 04/02/21 21:00 04/02/21 13:08 DC Ferrous Sulfate (Feosol) 325 mg DAILY PO 04/03/21 09:00 04/02/21 13:08 DC Furosemide (Lasix) 40 mg DAILY PO 04/03/21 09:00 04/02/21 13:08 DC Isosorbide Mononitrate (Imdur) 30 mg DAILY08 PO 04/03/21 08:00 04/16/21 08:18 Ketoconazole (Nizoral 2% Shampoo) 1 joesph PRN DAILY PRN TP DANDRUFF 04/02/21 12:00 04/02/21 13:08 DC Levothyroxine Sodium (Synthroid) 75 mcg DAILY06 PO 04/03/21 06:00 04/16/21 04:53 Metoprolol Tartrate (Lopressor) 12.5 mg BID PO 04/02/21 21:00 04/16/21 08:20 Olanzapine (ZyPREXA ZYDIS) 2.5 mg PRN Q2HR PRN PO ANXIETY / AGITATION 04/02/21 12:00 04/02/21 13:08 DC Pantoprazole Sodium (Protonix) 40 mg DAILY08 PO 04/03/21 08:00 04/16/21 08:18 Polyethylene Glycol (miraLAX) 17 gm PRN BID PRN PO CONSTIPATION, 1ST CHOICE 04/02/21 12:00 04/14/21 04:59 Potassium Chloride (Klor-Con) 20 meq BID PO 04/02/21 21:00 04/12/21 10:44 DC 04/11/21 20:15 Ropinirole HCl (Requip) 0.5 mg HS PO 04/02/21 21:00 04/16/21 19:44 Sennosides (Senna) 8.6 mg BIDACBL PO 04/03/21 07:30 04/02/21 13:08 DC Tramadol HCl (Ultram) 50 mg PRN Q6HRS PRN PO MOD -SEV PAIN 04/02/21 12:00 04/02/21 13:08 DC Triamcinolone Acetonide (Kenalog) 1 joesph PRN Q12HR PRN TP ITCHING 04/02/21 12:00 04/02/21 13:08 DC Vitamin A/Vitamin D (Vitamin A & D Ointment) 1 joesph PRN Q1HR PRN TP DRY SKIN / SCALING 04/02/21 12:00 04/02/21 13:08 DC Non-Formulary Medication (Fluoxetine Hcl (Prozac)) 80 mg DAILY08 PO 04/03/21 08:00 04/02/21 13:08 DC Multi-Ingredient Ointment (Analgesic [place]) 1 joesph PRN QID PRN TP MUSCLE PAIN 04/02/21 12:45 Non-Formulary Medication (Olodaterol HCl (Striverdi Respimat)) 2 puff DAILY IH 04/03/21 09:00 04/02/21 13:08 DC Non-Formulary Medication (Quetiapine Fumarate (Seroquel)) 300 mg DAILY08 PO 04/03/21 08:00 04/02/21 13:08 DC Non-Formulary Medication (Quetiapine Fumarate (Seroquel)) 600 mg HS PO 04/02/21 21:00 04/02/21 13:08 DC Acetaminophen (Tylenol) 650 mg PRN Q6HRS PRN PO MILD PAIN / TEMP > 100.3'F 04/02/21 12:30 Al Hydroxide/Mg Hydroxide (Mylanta Plus Xs) 15 ml PRN AFTMEALHC PRN PO DYSPEPSIA 04/02/21 12:30 Magnesium Hydroxide (Milk Of Magnesia) 2,400 mg PRN QHS PRN PO CONSTIPATION, 2ND CHOICE 04/02/21 12:30 Albuterol Sulfate (Ventolin Hfa Inhaler) 1 puff PRN Q4HRS PRN INH SOA 04/02/21 12:45 04/04/21 09:12 Albuterol Sulfate (Ventolin) 1 mg PRN Q4HRS PRN IH FOR ASTHMA 04/02/21 13:00 UNV Albuterol/ Ipratropium (Duoneb) 3 ml PRN QID PRN NEB copd 04/02/21 13:00 UNV Non-Formulary Medication (Umeclidinium [place] (Incruse Ellipta)) 62.5 mcg DAILY IH 04/03/21 09:00 UNV Furosemide (Lasix) 80 mg BID94 PO 04/02/21 16:00 04/06/21 16:01 DC 04/06/21 09:03 Fluoxetine HCl (PROzac) 30 mg DAILY08 PO 04/03/21 08:00 04/16/21 08:20 Quetiapine Fumarate (SEROquel) 100 mg HS PO 04/02/21 21:00 04/16/21 19:44 Albuterol/ Ipratropium (Combivent Respimat 20-100 Mcg) 1 puff RTQID INH 04/02/21 16:00 04/16/21 19:45 Fluticasone Furoate (ARNUITY 100mcg ELLIPTA) 1 puff DAILY INH 04/03/21 09:00 04/16/21 08:16 Hydroxyzine HCl (Atarax) 25 mg PRN Q8HRS PRN PO ANXIETY / AGITATION 04/02/21 14:15 04/04/21 17:36 DC Divalproex Sodium (Depakote) 125 mg DAILY PO 04/04/21 09:00 04/08/21 17:07 DC 04/08/21 08:31 Divalproex Sodium (Depakote) 375 mg HS PO 04/03/21 21:00 04/08/21 17:07 DC 04/07/21 20:03 Trazodone HCl (Desyrel) 50 mg PRN QHS PRN PO INSOMNIA, MAY REPEAT X1 04/04/21 17:15 04/16/21 19:44 Hydroxyzine HCl (Atarax) 50 mg PRN Q6HRS PRN PO anxiety 04/04/21 17:15 04/16/21 19:44 Furosemide (Lasix) 80 mg DAILY PO 04/07/21 09:00 04/16/21 08:19 Divalproex Sodium (Depakote) 500 mg HS PO 04/08/21 21:00 04/16/21 19:44 Divalproex Sodium (Depakote) 250 mg DAILY PO 04/09/21 09:00 04/16/21 08:19 Sodium Chloride (Saline Mist Nasal) 1 joesph PRN Q1HR PRN NS NASAL CONGESTION 04/10/21 14:30 04/16/21 19:46 Quetiapine Fumarate (SEROquel) 12.5 mg 0900,1300,1700 PO 04/17/21 09:00 I have reviewed the current psychotropics carefully including drug interactions. Risk benefit ratio favors no change other than as noted in my dictated progress note. Diagnosis: Problems: (1) Schizoaffective disorder, bipolar type (2) Impulse control disorder, unspecified (3) Anxiety disorder, unspecified (4) Major depressive disorder with psychotic features MICHAEL CLARK MD Apr 16, 2021 21:29
[2021-04-17] MEDS: LEVOTHYROXINE 75 MCG TABLET PO SCH (04:12)
[2021-04-17] MEDS: SODIUM CHLORIDE 0.65% NASAL SPRAY 45ML BOTTLE. NS PRN ×4 (04:12→20:27)
[2021-04-17 06:17] VITALS: BP 105/67
[2021-04-17 06:23] LABS: BASO % 1 % (0-3); EOS # 0.3 x10^3/uL (0.0-0.7); EOS % 4 % (0-3); HEMATOCRIT 27.9 % (36.0-47.0); HEMOGLOBIN 8.8 g/dL (12.0-15.5); LYMPH # 0.8 x10^3/uL (1.0-4.8); LYMPH % 13 % (24-48); MEAN CORPUSCULAR HEMOGLOBIN 27 pg (25-35); MEAN CORPUSCULAR HGB CONC 32 g/dL (31-37); MEAN CORPUSCULAR VOLUME 85 fL (79-100); MONO # 0.7 x10^3/uL (0.0-1.1); MONO % 11 % (0-9); NEUT # 4.5 x10^3uL (1.8-7.7); NEUT % 72 % (31-73); PLATELET COUNT 199 x10^3/uL (140-400); RED BLOOD COUNT 3.28 x10^6/uL (3.50-5.40); RED CELL DISTRIBUTION WIDTH 17.3 % (11.5-14.5); WHITE BLOOD COUNT 6.3 x10^3/uL (4.0-11.0)
[2021-04-17 06:47] LABS: ALBUMIN 2.8 g/dL (3.4-5.0); ALBUMIN/GLOBULIN RATIO 0.8 (1.0-1.7); CALCIUM 8.9 mg/dL (8.5-10.1); CREATININE 0.9 mg/dL (0.6-1.0); GFR 62.5; POTASSIUM 4.1 mmol/L (3.5-5.1); TOTAL BILIRUBIN 0.4 mg/dL (0.2-1.0); TOTAL PROTEIN 6.5 g/dL (6.4-8.2)
--- NOTE | 2021-04-17 07:38 | PDOC ---
Exam Note: [place] Note: This note is a late entry for 04/15/2021 covers elements not covered in my initial note. Subjective: The patient was seen individually on 04/15/2021, discussed and reviewed the chart with Vivian WOMACK. The patient slept 3-3/4 hours previous night. Overall the patient has been somewhat withdrawn. She spends much time in her room. He oxygen saturations desats quite rapidly if she is not on oxygen. Review of Systems: Ambulation impaired in wheelchair. No CV, , eye, ENT system symptoms on review. She less complains of lower leg discomfort. Mental Status Exam: The patient is reasonably oriented. Speech is coherent. Abstraction fair. Computation impaired. Language function intact. Mood and affect still depressed and anxious. No suicidal ideation. Laboratory Data: Reviewed. Impression: Schizoaffective disorder, bipolar type, depressed. Anxiety disorder unspecified. Impulse control disorder unspecified. Major depressive disorder, with history of psychotic features. Plan: No change from initial note. Assessment: Vital Signs/I&O: Vital Signs Date Time Temp Pulse Resp B/P (MAP) Pulse Ox O2 Delivery O2 Flow Rate FiO2 04/17/21 06:17 97.5 81 16 105/67 (80) 91 Nasal Cannula 5.0 I & O 04/16/21 04/16/21 04/17/21 15:00 23:00 07:00 Intake Total 680 ml 360 ml Balance 680 ml 360 ml Labs: Laboratory Tests Test 04/17/21 06:14 White Blood Count 6.3 x10^3/uL (4.0-11.0) Red Blood Count 3.28 x10^6/uL (3.50-5.40) L Hemoglobin 8.8 g/dL (12.0-15.5) L Hematocrit 27.9 % (36.0-47.0) L Mean Corpuscular Volume 85 fL (79-100) Mean Corpuscular Hemoglobin 27 pg (25-35) Mean Corpuscular Hemoglobin Concent 32 g/dL (31-37) Red Cell Distribution Width 17.3 % (11.5-14.5) H Platelet Count 199 x10^3/uL (140-400) Neutrophils (%) (Auto) 72 % (31-73) Lymphocytes (%) (Auto) 13 % (24-48) L Monocytes (%) (Auto) 11 % (0-9) H Eosinophils (%) (Auto) 4 % (0-3) H Basophils (%) (Auto) 1 % (0-3) Neutrophils # (Auto) 4.5 x10^3uL (1.8-7.7) Lymphocytes # (Auto) 0.8 x10^3/uL (1.0-4.8) L Monocytes # (Auto) 0.7 x10^3/uL (0.0-1.1) Eosinophils # (Auto) 0.3 x10^3/uL (0.0-0.7) Basophils # (Auto) 0.0 x10^3/uL (0.0-0.2) Sodium Level 136 mmol/L (136-145) Potassium Level 4.1 mmol/L (3.5-5.1) Chloride Level 96 mmol/L (98-107) L Carbon Dioxide Level 38 mmol/L (21-32) H Anion Gap 2 (6-14) L Blood Urea Nitrogen 30 mg/dL (7-20) H Creatinine 0.9 mg/dL (0.6-1.0) Estimated GFR (Cockcroft-Gault) 62.5 BUN/Creatinine Ratio 33 (6-20) H Glucose Level 83 mg/dL (70-99) Calcium Level 8.9 mg/dL (8.5-10.1) Total Bilirubin 0.4 mg/dL (0.2-1.0) Aspartate Amino Transferase (AST) 18 U/L (15-37) Alanine Aminotransferase (ALT) 17 U/L (14-59) Alkaline Phosphatase 73 U/L (46-116) Total Protein 6.5 g/dL (6.4-8.2) Albumin 2.8 g/dL (3.4-5.0) L Albumin/Globulin Ratio 0.8 (1.0-1.7) L Current Medications: I have reviewed the current psychotropics carefully including drug interactions. Risk benefit ratio favors no change other than as noted in my dictated progress note. Diagnosis: Problems: (1) Schizoaffective disorder, bipolar type (2) Impulse control disorder, unspecified (3) Anxiety disorder, unspecified (4) Major depressive disorder with psychotic features MICHAEL CLARK MD Apr 17, 2021 07:38
--- NOTE | 2021-04-17 07:53 | PDOC ---
Exam Note: [place] Note: This note is a late entry for 04/16/2021 covers elements not covered in my initial note. Subjective: The patient was seen individually on 04/16/2021, discussed and reviewed the chart with Yesenia WOMACK. The patient slept 6-1/4 hours previous night. She has been anxious. Received hydroxyzine 50 mg x2. Covid screen is negative. On 04/12 valproic acid level therapeutic at 54. Review of Systems: Ambulation impaired in wheelchair. No CV, , eye, ENT system symptoms on review. She less complains of lower leg discomfort. She has been raising her leg, swelling is better. Mental Status Exam: The patient is alert and oriented. Speech is coherent, very appreciative of my visit. Abstraction fair. Computation impaired. Language function intact. Mood and affect remains anxious, labile. Laboratory Data: Reviewed. Impression: Schizoaffective disorder, bipolar type, depressed. Anxiety disorder unspecified. Impulse control disorder unspecified. Major depressive disorder, with history of psychotic features. Plan: Start Seroquel 12.5 mg 9 a.m. and 1 p.m. 5 p.m. for her mood lability, anxiety. Continue rest of the psychotropics unchanged including Depakote, Abilify, Seroquel 100 mg h.s., ReQuip, Prozac, hydroxyzine and trazodone the latter two are p.r.n.s. Assessment: Vital Signs/I&O: Vital Signs Date Time Temp Pulse Resp B/P (MAP) Pulse Ox O2 Delivery O2 Flow Rate FiO2 04/17/21 06:17 97.5 81 16 105/67 (80) 91 Nasal Cannula 5.0 I & O 04/16/21 04/16/21 04/17/21 15:00 23:00 07:00 Intake Total 680 ml 360 ml Balance 680 ml 360 ml Labs: Laboratory Tests Test 04/17/21 06:14 White Blood Count 6.3 x10^3/uL (4.0-11.0) Red Blood Count 3.28 x10^6/uL (3.50-5.40) L Hemoglobin 8.8 g/dL (12.0-15.5) L Hematocrit 27.9 % (36.0-47.0) L Mean Corpuscular Volume 85 fL (79-100) Mean Corpuscular Hemoglobin 27 pg (25-35) Mean Corpuscular Hemoglobin Concent 32 g/dL (31-37) Red Cell Distribution Width 17.3 % (11.5-14.5) H Platelet Count 199 x10^3/uL (140-400) Neutrophils (%) (Auto) 72 % (31-73) Lymphocytes (%) (Auto) 13 % (24-48) L Monocytes (%) (Auto) 11 % (0-9) H Eosinophils (%) (Auto) 4 % (0-3) H Basophils (%) (Auto) 1 % (0-3) Neutrophils # (Auto) 4.5 x10^3uL (1.8-7.7) Lymphocytes # (Auto) 0.8 x10^3/uL (1.0-4.8) L Monocytes # (Auto) 0.7 x10^3/uL (0.0-1.1) Eosinophils # (Auto) 0.3 x10^3/uL (0.0-0.7) Basophils # (Auto) 0.0 x10^3/uL (0.0-0.2) Sodium Level 136 mmol/L (136-145) Potassium Level 4.1 mmol/L (3.5-5.1) Chloride Level 96 mmol/L (98-107) L Carbon Dioxide Level 38 mmol/L (21-32) H Anion Gap 2 (6-14) L Blood Urea Nitrogen 30 mg/dL (7-20) H Creatinine 0.9 mg/dL (0.6-1.0) Estimated GFR (Cockcroft-Gault) 62.5 BUN/Creatinine Ratio 33 (6-20) H Glucose Level 83 mg/dL (70-99) Calcium Level 8.9 mg/dL (8.5-10.1) Total Bilirubin 0.4 mg/dL (0.2-1.0) Aspartate Amino Transferase (AST) 18 U/L (15-37) Alanine Aminotransferase (ALT) 17 U/L (14-59) Alkaline Phosphatase 73 U/L (46-116) Total Protein 6.5 g/dL (6.4-8.2) Albumin 2.8 g/dL (3.4-5.0) L Albumin/Globulin Ratio 0.8 (1.0-1.7) L Current Medications: I have reviewed the current psychotropics carefully including drug interactions. Risk benefit ratio favors no change other than as noted in my dictated progress note. Diagnosis: Problems: (1) Schizoaffective disorder, bipolar type (2) Impulse control disorder, unspecified (3) Anxiety disorder, unspecified (4) Major depressive disorder with psychotic features (5) Bipolar 1 disorder, mixed, partial remission MICHAEL CLARK MD Apr 17, 2021 07:53
[2021-04-17] MEDS: ISOSORBIDE MONONITRATE ER 30 MG TAB.ER.24H PO SCH (08:22)
[2021-04-17] MEDS: PANTOPRAZOLE 40 MG TABLET. PO SCH (08:25)
[2021-04-17] MEDS: DIVALPROEX SODIUM 250 MG TABLET.DR. PO SCH ×2 (08:25→20:28)
[2021-04-17] MEDS: FUROSEMIDE 80 MG TABLET PO SCH ×2 (08:25→12:41)
[2021-04-17] MEDS: ASPIRIN ENTERIC COATED 81 MG TABLET.DR. PO SCH (08:25)
[2021-04-17] MEDS: ARIPiprazole 15 MG TABLET PO SCH (08:26)
[2021-04-17] MEDS: QUEtiapine 25 MG TABLET. PO SCH ×3 (08:27→17:00)
[2021-04-17] MEDS: FLUTICASONE FUROATE 100mcg/INH ELLIPTA INHALER. INH SCH (08:28)
[2021-04-17] MEDS: IPRATROPIUM/ALBUTEROL 20/100mcg/INH INHALER. INH SCH ×4 (08:28→20:27)
[2021-04-17] MEDS: DICLOFENAC SODIUM 1% TOPICAL GEL 100GM TUBE. TP SCH ×4 (08:29→20:27)
[2021-04-17] MEDS: METOPROLOL TART IMMED RELEASE 25 MG TABLET. PO SCH ×2 (08:53→21:00)
[2021-04-17 15:45] VITALS: BP 90/55
[2021-04-17] MEDS: QUEtiapine 100 MG TABLET. PO SCH (20:27)
[2021-04-17] MEDS: rOPINIRole 0.5 MG TABLET. PO SCH (20:27)
[2021-04-17] MEDS: ATORVASTATIN CALCIUM 20 MG TABLET PO SCH (20:28)
--- NOTE | 2021-04-17 21:26 | PDOC ---
Exam Note: [place] Note: Please also refer to the separate dictated note~for this date of service dictated separately.~Patient seen individually. Discussed the patient with Nursing staff reviewed the chart.~Reviewed interim history and current functioning. Reviewed vital signs,~Labs/ Radiology~and current medications noted below. Continue current treatment with the changes noted in the dictated addendum note Assessment: Vital Signs/I&O: Vital Signs Date Time Temp Pulse Resp B/P (MAP) Pulse Ox O2 Delivery O2 Flow Rate FiO2 04/17/21 15:45 98.5 77 20 90/55 (67) 97 Room Air 04/17/21 06:17 5.0 I & O 04/16/21 04/16/21 04/17/21 15:00 23:00 07:00 Intake Total 680 ml 360 ml Balance 680 ml 360 ml Labs: Laboratory Tests Test 04/17/21 06:14 White Blood Count 6.3 x10^3/uL (4.0-11.0) Red Blood Count 3.28 x10^6/uL (3.50-5.40) L Hemoglobin 8.8 g/dL (12.0-15.5) L Hematocrit 27.9 % (36.0-47.0) L Mean Corpuscular Volume 85 fL (79-100) Mean Corpuscular Hemoglobin 27 pg (25-35) Mean Corpuscular Hemoglobin Concent 32 g/dL (31-37) Red Cell Distribution Width 17.3 % (11.5-14.5) H Platelet Count 199 x10^3/uL (140-400) Neutrophils (%) (Auto) 72 % (31-73) Lymphocytes (%) (Auto) 13 % (24-48) L Monocytes (%) (Auto) 11 % (0-9) H Eosinophils (%) (Auto) 4 % (0-3) H Basophils (%) (Auto) 1 % (0-3) Neutrophils # (Auto) 4.5 x10^3uL (1.8-7.7) Lymphocytes # (Auto) 0.8 x10^3/uL (1.0-4.8) L Monocytes # (Auto) 0.7 x10^3/uL (0.0-1.1) Eosinophils # (Auto) 0.3 x10^3/uL (0.0-0.7) Basophils # (Auto) 0.0 x10^3/uL (0.0-0.2) Sodium Level 136 mmol/L (136-145) Potassium Level 4.1 mmol/L (3.5-5.1) Chloride Level 96 mmol/L (98-107) L Carbon Dioxide Level 38 mmol/L (21-32) H Anion Gap 2 (6-14) L Blood Urea Nitrogen 30 mg/dL (7-20) H Creatinine 0.9 mg/dL (0.6-1.0) Estimated GFR (Cockcroft-Gault) 62.5 BUN/Creatinine Ratio 33 (6-20) H Glucose Level 83 mg/dL (70-99) Calcium Level 8.9 mg/dL (8.5-10.1) Total Bilirubin 0.4 mg/dL (0.2-1.0) Aspartate Amino Transferase (AST) 18 U/L (15-37) Alanine Aminotransferase (ALT) 17 U/L (14-59) Alkaline Phosphatase 73 U/L (46-116) Total Protein 6.5 g/dL (6.4-8.2) Albumin 2.8 g/dL (3.4-5.0) L Albumin/Globulin Ratio 0.8 (1.0-1.7) L Current Medications: Meds: Laboratory Tests Test 04/17/21 06:14 White Blood Count 6.3 x10^3/uL Red Blood Count 3.28 x10^6/uL Hemoglobin 8.8 g/dL Hematocrit 27.9 % Mean Corpuscular Volume 85 fL Mean Corpuscular Hemoglobin 27 pg Mean Corpuscular Hemoglobin Concent 32 g/dL Red Cell Distribution Width 17.3 % Platelet Count 199 x10^3/uL Neutrophils (%) (Auto) 72 % Lymphocytes (%) (Auto) 13 % Monocytes (%) (Auto) 11 % Eosinophils (%) (Auto) 4 % Basophils (%) (Auto) 1 % Neutrophils # (Auto) 4.5 x10^3uL Lymphocytes # (Auto) 0.8 x10^3/uL Monocytes # (Auto) 0.7 x10^3/uL Eosinophils # (Auto) 0.3 x10^3/uL Basophils # (Auto) 0.0 x10^3/uL Sodium Level 136 mmol/L Potassium Level 4.1 mmol/L Chloride Level 96 mmol/L Carbon Dioxide Level 38 mmol/L Anion Gap 2 Blood Urea Nitrogen 30 mg/dL Creatinine 0.9 mg/dL Estimated GFR (Cockcroft-Gault) 62.5 BUN/Creatinine Ratio 33 Glucose Level 83 mg/dL Calcium Level 8.9 mg/dL Total Bilirubin 0.4 mg/dL Aspartate Amino Transf (AST/SGOT) 18 U/L Alanine Aminotransferase (ALT/SGPT) 17 U/L Alkaline Phosphatase 73 U/L Total Protein 6.5 g/dL Albumin 2.8 g/dL Albumin/Globulin Ratio 0.8 Current Medications Medications (Trade) Dose Ordered Sig/Indra Route PRN Reason Start Time Stop Time Status Last Admin Dose Admin Albuterol Sulfate (Ventolin) 1 mg PRN Q4HRS PRN IH FOR ASTHMA 04/02/21 12:00 UNV Amlodipine Besylate (Norvasc) 5 mg DAILY PO 04/03/21 09:00 04/02/21 13:08 DC Aripiprazole (Abilify) 15 mg DAILY PO 04/03/21 09:00 04/17/21 08:26 Aspirin (Aspirin Enteric Coated) 81 mg DAILY PO 04/03/21 09:00 04/17/21 08:25 Atorvastatin Calcium (Lipitor) 20 mg QHS PO 04/02/21 21:00 04/17/21 20:28 Calcium/Vitamin D (Oscal D 500mg/ 200uts) 1 tab BID PO 04/02/21 21:00 04/02/21 13:08 DC Vitamin D (Vitamin D3) 50,000 unit QWE PO 04/03/21 16:00 04/02/21 13:08 DC Clonazepam (KlonoPIN) 0.5 mg PRN BID PRN PO ANXIETY / AGITATION 04/02/21 12:00 Cancel Diclofenac Sodium (Voltaren) 2 joesph QID TP 04/02/21 13:00 04/17/21 20:27 Divalproex Sodium (Depakote Er) 500 mg HS PO 04/02/21 21:00 04/02/21 13:08 DC Docusate Sodium (Colace) 100 mg BID PO 04/02/21 21:00 04/02/21 13:08 DC Enoxaparin Sodium (Lovenox 40mg Syringe) 40 mg HS SQ 04/02/21 21:00 04/02/21 13:08 DC Ferrous Sulfate (Feosol) 325 mg DAILY PO 04/03/21 09:00 04/02/21 13:08 DC Furosemide (Lasix) 40 mg DAILY PO 04/03/21 09:00 04/02/21 13:08 DC Isosorbide Mononitrate (Imdur) 30 mg DAILY08 PO 04/03/21 08:00 04/17/21 08:22 Ketoconazole (Nizoral 2% Shampoo) 1 joesph PRN DAILY PRN TP DANDRUFF 04/02/21 12:00 04/02/21 13:08 DC Levothyroxine Sodium (Synthroid) 75 mcg DAILY06 PO 04/03/21 06:00 04/17/21 04:12 Metoprolol Tartrate (Lopressor) 12.5 mg BID PO 04/02/21 21:00 04/16/21 08:20 Olanzapine (ZyPREXA ZYDIS) 2.5 mg PRN Q2HR PRN PO ANXIETY / AGITATION 04/02/21 12:00 04/02/21 13:08 DC Pantoprazole Sodium (Protonix) 40 mg DAILY08 PO 04/03/21 08:00 04/17/21 08:25 Polyethylene Glycol (miraLAX) 17 gm PRN BID PRN PO CONSTIPATION, 1ST CHOICE 04/02/21 12:00 04/14/21 04:59 Potassium Chloride (Klor-Con) 20 meq BID PO 04/02/21 21:00 04/12/21 10:44 DC 04/11/21 20:15 Ropinirole HCl (Requip) 0.5 mg HS PO 04/02/21 21:00 04/17/21 20:27 Sennosides (Senna) 8.6 mg BIDACBL PO 04/03/21 07:30 04/02/21 13:08 DC Tramadol HCl (Ultram) 50 mg PRN Q6HRS PRN PO MOD -SEV PAIN 04/02/21 12:00 04/02/21 13:08 DC Triamcinolone Acetonide (Kenalog) 1 joesph PRN Q12HR PRN TP ITCHING 04/02/21 12:00 04/02/21 13:08 DC Vitamin A/Vitamin D (Vitamin A & D Ointment) 1 joesph PRN Q1HR PRN TP DRY SKIN / SCALING 04/02/21 12:00 04/02/21 13:08 DC Non-Formulary Medication (Fluoxetine Hcl (Prozac)) 80 mg DAILY08 PO 04/03/21 08:00 04/02/21 13:08 DC Multi-Ingredient Ointment (Analgesic [place]) 1 joesph PRN QID PRN TP MUSCLE PAIN 04/02/21 12:45 Non-Formulary Medication (Olodaterol HCl (Striverdi Respimat)) 2 puff DAILY IH 04/03/21 09:00 04/02/21 13:08 DC Non-Formulary Medication (Quetiapine Fumarate (Seroquel)) 300 mg DAILY08 PO 04/03/21 08:00 04/02/21 13:08 DC Non-Formulary Medication (Quetiapine Fumarate (Seroquel)) 600 mg HS PO 04/02/21 21:00 04/02/21 13:08 DC Acetaminophen (Tylenol) 650 mg PRN Q6HRS PRN PO MILD PAIN / TEMP > 100.3'F 04/02/21 12:30 Al Hydroxide/Mg Hydroxide (Mylanta Plus Xs) 15 ml PRN AFTMEALHC PRN PO DYSPEPSIA 04/02/21 12:30 Magnesium Hydroxide (Milk Of Magnesia) 2,400 mg PRN QHS PRN PO CONSTIPATION, 2ND CHOICE 04/02/21 12:30 Albuterol Sulfate (Ventolin Hfa Inhaler) 1 puff PRN Q4HRS PRN INH SOA 04/02/21 12:45 04/04/21 09:12 Albuterol Sulfate (Ventolin) 1 mg PRN Q4HRS PRN IH FOR ASTHMA 04/02/21 13:00 UNV Albuterol/ Ipratropium (Duoneb) 3 ml PRN QID PRN NEB copd 04/02/21 13:00 UNV Non-Formulary Medication (Umeclidinium [place] (Incruse Ellipta)) 62.5 mcg DAILY IH 04/03/21 09:00 UNV Furosemide (Lasix) 80 mg BID94 PO 04/02/21 16:00 04/06/21 16:01 DC 04/06/21 09:03 Fluoxetine HCl (PROzac) 30 mg DAILY08 PO 04/03/21 08:00 04/17/21 08:26 Quetiapine Fumarate (SEROquel) 100 mg HS PO 04/02/21 21:00 04/17/21 20:27 Albuterol/ Ipratropium (Combivent Respimat 20-100 Mcg) 1 puff RTQID INH 04/02/21 16:00 04/17/21 20:27 Fluticasone Furoate (ARNUITY 100mcg ELLIPTA) 1 puff DAILY INH 04/03/21 09:00 04/17/21 08:28 Hydroxyzine HCl (Atarax) 25 mg PRN Q8HRS PRN PO ANXIETY / AGITATION 04/02/21 14:15 04/04/21 17:36 DC Divalproex Sodium (Depakote) 125 mg DAILY PO 04/04/21 09:00 04/08/21 17:07 DC 04/08/21 08:31 Divalproex Sodium (Depakote) 375 mg HS PO 04/03/21 21:00 04/08/21 17:07 DC 04/07/21 20:03 Trazodone HCl (Desyrel) 50 mg PRN QHS PRN PO INSOMNIA, MAY REPEAT X1 04/04/21 17:15 04/16/21 19:44 Hydroxyzine HCl (Atarax) 50 mg PRN Q6HRS PRN PO anxiety 04/04/21 17:15 04/16/21 19:44 Furosemide (Lasix) 80 mg DAILY PO 04/07/21 09:00 04/17/21 07:23 DC 04/16/21 08:19 Divalproex Sodium (Depakote) 500 mg HS PO 04/08/21 21:00 04/17/21 20:28 Divalproex Sodium (Depakote) 250 mg DAILY PO 04/09/21 09:00 04/17/21 08:25 Sodium Chloride (Saline Mist Nasal) 1 joesph PRN Q1HR PRN NS NASAL CONGESTION 04/10/21 14:30 04/17/21 20:27 Quetiapine Fumarate (SEROquel) 12.5 mg 0900,1300,1700 PO 04/17/21 09:00 04/17/21 17:00 Furosemide (Lasix) 80 mg BID92 PO 04/17/21 09:00 2/9/22 12:41 Metolazone (Zaroxolyn) 2.5 mg DAILY PO 04/18/21 09:00 Current Medications Medications (Trade) Dose Ordered Sig/Indra Route PRN Reason Start Time Stop Time Status Last Admin Dose Admin Quetiapine Fumarate (SEROquel) 12.5 mg 0900,1300,1700 PO 04/17/21 09:00 04/17/21 17:00 Furosemide (Lasix) 80 mg BID92 PO 04/17/21 09:00 04/17/21 12:41 I have reviewed the current psychotropics carefully including drug interactions. Risk benefit ratio favors no change other than as noted in my dictated progress note. Diagnosis: Problems: (1) Schizoaffective disorder, bipolar type (2) Impulse control disorder, unspecified (3) Anxiety disorder, unspecified (4) Major depressive disorder with psychotic features MICHAEL CLARK MD Apr 17, 2021 21:26
[2021-04-18] MEDS: SODIUM CHLORIDE 0.65% NASAL SPRAY 45ML BOTTLE. NS PRN ×4 (05:25→20:37)
[2021-04-18] MEDS: LEVOTHYROXINE 75 MCG TABLET PO SCH (05:25)
[2021-04-18 06:03] VITALS: BP 105/68
--- NOTE | 2021-04-18 08:11 | RAD ---
EXAMINATION: Chest radiograph. VIEWS: 1 COMPARISON: 08/06/2020 INDICATION:65 years, Female, worsening hypoxemia congestive heart failure versus pneumonia. FINDINGS: Normal cardiomediastinal silhouette. Similar tortuous thoracic aorta with displacement of the trachea to the right side. Right lung worst than left, diffuse pulmonary infiltrates. Moderate left and trac e right pleural effusions. No pneumothorax. No acute osseous process. IMPRESSION: 1. Right worst than left, diffuse pulmonary infiltrates, worsened since prior exam. 2. Moderate left and trace right pleural effusions. Electronically signed by: Anne Bowman MD (04/18/2021 8:09 AM) [id number]
[2021-04-18] MEDS: IPRATROPIUM/ALBUTEROL 20/100mcg/INH INHALER. INH SCH ×4 (08:39→20:37)
[2021-04-18] MEDS: METOPROLOL TART IMMED RELEASE 25 MG TABLET. PO SCH ×2 (08:39→21:00)
[2021-04-18] MEDS: ARIPiprazole 15 MG TABLET PO SCH (08:39)
[2021-04-18] MEDS: QUEtiapine 25 MG TABLET. PO SCH ×3 (08:39→17:06)
[2021-04-18] MEDS: DIVALPROEX SODIUM 250 MG TABLET.DR. PO SCH ×2 (08:39→20:36)
[2021-04-18] MEDS: ASPIRIN ENTERIC COATED 81 MG TABLET.DR. PO SCH (08:40)
[2021-04-18] MEDS: ISOSORBIDE MONONITRATE ER 30 MG TAB.ER.24H PO SCH (08:40)
[2021-04-18] MEDS: FUROSEMIDE 80 MG TABLET PO SCH ×2 (08:40→12:20)
[2021-04-18] MEDS: PANTOPRAZOLE 40 MG TABLET. PO SCH (08:40)
[2021-04-18] MEDS: DICLOFENAC SODIUM 1% TOPICAL GEL 100GM TUBE. TP SCH ×4 (08:41→20:38)
[2021-04-18] MEDS: FLUTICASONE FUROATE 100mcg/INH ELLIPTA INHALER. INH SCH (08:41)
[2021-04-18] MEDS: metOLazone 2.5 MG TABLET PO SCH (08:41)
[2021-04-18 15:44] VITALS: BP 91/60
[2021-04-18] MEDS: ATORVASTATIN CALCIUM 20 MG TABLET PO SCH (20:36)
[2021-04-18] MEDS: rOPINIRole 0.5 MG TABLET. PO SCH (20:36)
[2021-04-18] MEDS: QUEtiapine 100 MG TABLET. PO SCH (20:36)
--- NOTE | 2021-04-18 21:51 | PDOC ---
Exam Note: [place] Note: Please also refer to the separate dictated note~for this date of service dictated separately.~Patient seen individually. Discussed the patient with Nursing staff reviewed the chart.~Reviewed interim history and current functioning. Reviewed vital signs,~Labs/ Radiology~and current medications noted below. Continue current treatment with the changes noted in the dictated addendum note Assessment: Vital Signs/I&O: Vital Signs Date Time Temp Pulse Resp B/P (MAP) Pulse Ox O2 Delivery O2 Flow Rate FiO2 04/18/21 15:44 98.1 72 20 91/60 (70) 95 04/17/21 15:45 Room Air 04/17/21 06:17 5.0 I & O 04/17/21 04/17/21 04/18/21 15:00 23:00 07:00 Intake Total 480 ml 480 ml Balance 480 ml 480 ml Current Medications: Meds: Current Medications Medications (Trade) Dose Ordered Sig/Indra Route PRN Reason Start Time Stop Time Status Last Admin Dose Admin Albuterol Sulfate (Ventolin) 1 mg PRN Q4HRS PRN IH FOR ASTHMA 04/02/21 12:00 UNV Amlodipine Besylate (Norvasc) 5 mg DAILY PO 04/03/21 09:00 04/02/21 13:08 DC Aripiprazole (Abilify) 15 mg DAILY PO 04/03/21 09:00 04/18/21 08:39 Aspirin (Aspirin Enteric Coated) 81 mg DAILY PO 04/03/21 09:00 04/18/21 08:40 Atorvastatin Calcium (Lipitor) 20 mg QHS PO 04/02/21 21:00 04/18/21 20:36 Calcium/Vitamin D (Oscal D 500mg/ 200uts) 1 tab BID PO 04/02/21 21:00 04/02/21 13:08 DC Vitamin D (Vitamin D3) 50,000 unit QWE PO 04/03/21 16:00 04/02/21 13:08 DC Clonazepam (KlonoPIN) 0.5 mg PRN BID PRN PO ANXIETY / AGITATION 04/02/21 12:00 Cancel Diclofenac Sodium (Voltaren) 2 joesph QID TP 04/02/21 13:00 04/18/21 20:38 Divalproex Sodium (Depakote Er) 500 mg HS PO 04/02/21 21:00 04/02/21 13:08 DC Docusate Sodium (Colace) 100 mg BID PO 04/02/21 21:00 04/02/21 13:08 DC Enoxaparin Sodium (Lovenox 40mg Syringe) 40 mg HS SQ 04/02/21 21:00 04/02/21 13:08 DC Ferrous Sulfate (Feosol) 325 mg DAILY PO 04/03/21 09:00 04/02/21 13:08 DC Furosemide (Lasix) 40 mg DAILY PO 04/03/21 09:00 04/02/21 13:08 DC Isosorbide Mononitrate (Imdur) 30 mg DAILY08 PO 04/03/21 08:00 04/18/21 08:40 Ketoconazole (Nizoral 2% Shampoo) 1 joesph PRN DAILY PRN TP DANDRUFF 04/02/21 12:00 04/02/21 13:08 DC Levothyroxine Sodium (Synthroid) 75 mcg DAILY06 PO 04/03/21 06:00 04/18/21 05:25 Metoprolol Tartrate (Lopressor) 12.5 mg BID PO 04/02/21 21:00 04/18/21 08:39 Olanzapine (ZyPREXA ZYDIS) 2.5 mg PRN Q2HR PRN PO ANXIETY / AGITATION 04/02/21 12:00 04/02/21 13:08 DC Pantoprazole Sodium (Protonix) 40 mg DAILY08 PO 04/03/21 08:00 04/18/21 08:40 Polyethylene Glycol (miraLAX) 17 gm PRN BID PRN PO CONSTIPATION, 1ST CHOICE 04/02/21 12:00 04/14/21 04:59 Potassium Chloride (Klor-Con) 20 meq BID PO 04/02/21 21:00 04/12/21 10:44 DC 04/11/21 20:15 Ropinirole HCl (Requip) 0.5 mg HS PO 04/02/21 21:00 04/18/21 20:36 Sennosides (Senna) 8.6 mg BIDACBL PO 04/03/21 07:30 04/02/21 13:08 DC Tramadol HCl (Ultram) 50 mg PRN Q6HRS PRN PO MOD -SEV PAIN 04/02/21 12:00 04/02/21 13:08 DC Triamcinolone Acetonide (Kenalog) 1 joesph PRN Q12HR PRN TP ITCHING 04/02/21 12:00 04/02/21 13:08 DC Vitamin A/Vitamin D (Vitamin A & D Ointment) 1 joesph PRN Q1HR PRN TP DRY SKIN / SCALING 04/02/21 12:00 04/02/21 13:08 DC Non-Formulary Medication (Fluoxetine Hcl (Prozac)) 80 mg DAILY08 PO 04/03/21 08:00 04/02/21 13:08 DC Multi-Ingredient Ointment (Analgesic [place]) 1 joesph PRN QID PRN TP MUSCLE PAIN 04/02/21 12:45 Non-Formulary Medication (Olodaterol HCl (Striverdi Respimat)) 2 puff DAILY IH 04/03/21 09:00 04/02/21 13:08 DC Non-Formulary Medication (Quetiapine Fumarate (Seroquel)) 300 mg DAILY08 PO 04/03/21 08:00 04/02/21 13:08 DC Non-Formulary Medication (Quetiapine Fumarate (Seroquel)) 600 mg HS PO 04/02/21 21:00 04/02/21 13:08 DC Acetaminophen (Tylenol) 650 mg PRN Q6HRS PRN PO MILD PAIN / TEMP > 100.3'F 04/02/21 12:30 Al Hydroxide/Mg Hydroxide (Mylanta Plus Xs) 15 ml PRN AFTMEALHC PRN PO DYSPEPSIA 04/02/21 12:30 Magnesium Hydroxide (Milk Of Magnesia) 2,400 mg PRN QHS PRN PO CONSTIPATION, 2ND CHOICE 04/02/21 12:30 Albuterol Sulfate (Ventolin Hfa Inhaler) 1 puff PRN Q4HRS PRN INH SOA 04/02/21 12:45 04/04/21 09:12 Albuterol Sulfate (Ventolin) 1 mg PRN Q4HRS PRN IH FOR ASTHMA 04/02/21 13:00 UNV Albuterol/ Ipratropium (Duoneb) 3 ml PRN QID PRN NEB copd 04/02/21 13:00 UNV Non-Formulary Medication (Umeclidinium [place] (Incruse Ellipta)) 62.5 mcg DAILY IH 04/03/21 09:00 UNV Furosemide (Lasix) 80 mg BID94 PO 04/02/21 16:00 04/06/21 16:01 DC 04/06/21 09:03 Fluoxetine HCl (PROzac) 30 mg DAILY08 PO 04/03/21 08:00 04/18/21 08:40 Quetiapine Fumarate (SEROquel) 100 mg HS PO 04/02/21 21:00 04/18/21 20:36 Albuterol/ Ipratropium (Combivent Respimat 20-100 Mcg) 1 puff RTQID INH 04/02/21 16:00 04/18/21 20:37 Fluticasone Furoate (ARNUITY 100mcg ELLIPTA) 1 puff DAILY INH 04/03/21 09:00 04/18/21 08:41 Hydroxyzine HCl (Atarax) 25 mg PRN Q8HRS PRN PO ANXIETY / AGITATION 04/02/21 14:15 04/04/21 17:36 DC Divalproex Sodium (Depakote) 125 mg DAILY PO 04/04/21 09:00 04/08/21 17:07 DC 04/08/21 08:31 Divalproex Sodium (Depakote) 375 mg HS PO 04/03/21 21:00 04/08/21 17:07 DC 04/07/21 20:03 Trazodone HCl (Desyrel) 50 mg PRN QHS PRN PO INSOMNIA, MAY REPEAT X1 04/04/21 17:15 04/16/21 19:44 Hydroxyzine HCl (Atarax) 50 mg PRN Q6HRS PRN PO anxiety 04/04/21 17:15 04/16/21 19:44 Furosemide (Lasix) 80 mg DAILY PO 04/07/21 09:00 04/17/21 07:23 DC 04/16/21 08:19 Divalproex Sodium (Depakote) 500 mg HS PO 04/08/21 21:00 04/18/21 20:36 Divalproex Sodium (Depakote) 250 mg DAILY PO 04/09/21 09:00 04/18/21 08:39 Sodium Chloride (Saline Mist Nasal) 1 joesph PRN Q1HR PRN NS NASAL CONGESTION 04/10/21 14:30 04/18/21 20:37 Quetiapine Fumarate (SEROquel) 12.5 mg 0900,1300,1700 PO 04/17/21 09:00 04/18/21 17:06 Furosemide (Lasix) 80 mg BID92 PO 04/17/21 09:00 04/18/21 12:20 Metolazone (Zaroxolyn) 2.5 mg DAILY PO 04/18/21 09:00 04/18/21 08:41 Current Medications Medications (Trade) Dose Ordered Sig/Indra Route PRN Reason Start Time Stop Time Status Last Admin Dose Admin Metolazone (Zaroxolyn) 2.5 mg DAILY PO 04/18/21 09:00 04/18/21 08:41 I have reviewed the current psychotropics carefully including drug interactions. Risk benefit ratio favors no change other than as noted in my dictated progress note. Diagnosis: Problems: (1) Schizoaffective disorder, bipolar type (2) Impulse control disorder, unspecified (3) Anxiety disorder, unspecified (4) Major depressive disorder with psychotic features MICHAEL CLARK MD Apr 18, 2021 21:51
[2021-04-19] MEDS: LEVOTHYROXINE 75 MCG TABLET PO SCH (05:25)
[2021-04-19] MEDS: hydrOXYzine HCL 25 MG TABLET PO PRN ×2 (05:25→17:23)
[2021-04-19] MEDS: SODIUM CHLORIDE 0.65% NASAL SPRAY 45ML BOTTLE. NS PRN ×4 (05:25→17:23)
[2021-04-19 05:53] VITALS: BP 108/49
[2021-04-19 06:37] LABS: BASO % 1 % (0-3); EOS # 0.3 x10^3/uL (0.0-0.7); EOS % 4 % (0-3); HEMATOCRIT 28.7 % (36.0-47.0); HEMOGLOBIN 9.1 g/dL (12.0-15.5); LYMPH # 0.8 x10^3/uL (1.0-4.8); LYMPH % 13 % (24-48); MEAN CORPUSCULAR HEMOGLOBIN 27 pg (25-35); MEAN CORPUSCULAR HGB CONC 32 g/dL (31-37); MEAN CORPUSCULAR VOLUME 85 fL (79-100); MONO # 0.6 x10^3/uL (0.0-1.1); MONO % 10 % (0-9); NEUT # 4.4 x10^3uL (1.8-7.7); NEUT % 73 % (31-73); PLATELET COUNT 198 x10^3/uL (140-400); RED BLOOD COUNT 3.38 x10^6/uL (3.50-5.40); RED CELL DISTRIBUTION WIDTH 17.3 % (11.5-14.5); WHITE BLOOD COUNT 6.1 x10^3/uL (4.0-11.0)
[2021-04-19 06:56] LABS: ALBUMIN/GLOBULIN RATIO 0.8 (1.0-1.7); ALK PHOS 85 U/L (46-116); ALT (SGPT) 19 U/L (14-59); ANION GAP 5 (6-14); AST (SGOT) 20 U/L (15-37); BLOOD UREA NITROGEN 27 mg/dL (7-20); BUN/CREATININE RATIO 27 (6-20); CALCIUM 9.1 mg/dL (8.5-10.1); CARBON DIOXIDE 41 mmol/L (21-32); CHLORIDE 93 mmol/L (98-107); GFR 55.3; GLUCOSE 84 mg/dL (70-99); POTASSIUM 3.6 mmol/L (3.5-5.1); SODIUM 139 mmol/L (136-145); TOTAL BILIRUBIN 0.5 mg/dL (0.2-1.0)
[2021-04-19 07:01] LABS: VAL ACID 57 mcg/mL (50-100)
[2021-04-19] MEDS: DICLOFENAC SODIUM 1% TOPICAL GEL 100GM TUBE. TP SCH ×4 (08:57→20:53)
[2021-04-19] MEDS: IPRATROPIUM/ALBUTEROL 20/100mcg/INH INHALER. INH SCH ×4 (08:57→20:53)
[2021-04-19] MEDS: DIVALPROEX SODIUM 250 MG TABLET.DR. PO SCH ×2 (08:58→20:52)
[2021-04-19] MEDS: ASPIRIN ENTERIC COATED 81 MG TABLET.DR. PO SCH (08:58)
[2021-04-19] MEDS: METOPROLOL TART IMMED RELEASE 25 MG TABLET. PO SCH ×2 (08:58→21:00)
[2021-04-19] MEDS: PANTOPRAZOLE 40 MG TABLET. PO SCH (08:58)
[2021-04-19] MEDS: FLUTICASONE FUROATE 100mcg/INH ELLIPTA INHALER. INH SCH (08:58)
[2021-04-19] MEDS: metOLazone 2.5 MG TABLET PO SCH (08:58)
[2021-04-19] MEDS: FUROSEMIDE 80 MG TABLET PO SCH ×2 (08:59→12:10)
[2021-04-19] MEDS: QUEtiapine 25 MG TABLET. PO SCH ×3 (08:59→17:23)
[2021-04-19] MEDS: ISOSORBIDE MONONITRATE ER 30 MG TAB.ER.24H PO SCH (08:59)
[2021-04-19] MEDS: ARIPiprazole 15 MG TABLET PO SCH (08:59)
[2021-04-19] MEDS: ACETAMINOPHEN 325 MG TABLET PO PRN (09:18)
[2021-04-19 16:01] VITALS: BP 88/54
[2021-04-19] MEDS: POLYETHYLENE GLYCOL 3350 17 GM PACKET. PO PRN (17:23)
[2021-04-19] MEDS: rOPINIRole 0.5 MG TABLET. PO SCH (20:51)
[2021-04-19] MEDS: ATORVASTATIN CALCIUM 20 MG TABLET PO SCH (20:51)
[2021-04-19] MEDS: QUEtiapine 100 MG TABLET. PO SCH (20:53)
--- NOTE | 2021-04-19 20:55 | PDOC ---
Exam Note: [place] Note: Please also refer to the separate dictated note~for this date of service dictated separately.~Patient seen individually. Discussed the patient with Nursing staff reviewed the chart.~Reviewed interim history and current functioning. Reviewed vital signs,~Labs/ Radiology~and current medications noted below. Continue current treatment with the changes noted in the dictated addendum note Assessment: Vital Signs/I&O: Vital Signs Date Time Temp Pulse Resp B/P (MAP) Pulse Ox O2 Delivery O2 Flow Rate FiO2 04/19/21 16:01 97.6 71 20 88/54 (65) 99 Nasal Cannula 5.0 I & O 04/18/21 04/18/21 04/19/21 15:00 23:00 07:00 Intake Total 860 ml 620 ml Balance 860 ml 620 ml Labs: Laboratory Tests Test 04/19/21 06:00 04/19/21 06:27 SARS-CoV-2 (PCR) Not detected (NOT DETECTD) White Blood Count 6.1 x10^3/uL (4.0-11.0) Red Blood Count 3.38 x10^6/uL (3.50-5.40) L Hemoglobin 9.1 g/dL (12.0-15.5) L Hematocrit 28.7 % (36.0-47.0) L Mean Corpuscular Volume 85 fL (79-100) Mean Corpuscular Hemoglobin 27 pg (25-35) Mean Corpuscular Hemoglobin Concent 32 g/dL (31-37) Red Cell Distribution Width 17.3 % (11.5-14.5) H Platelet Count 198 x10^3/uL (140-400) Neutrophils (%) (Auto) 73 % (31-73) Lymphocytes (%) (Auto) 13 % (24-48) L Monocytes (%) (Auto) 10 % (0-9) H Eosinophils (%) (Auto) 4 % (0-3) H Basophils (%) (Auto) 1 % (0-3) Neutrophils # (Auto) 4.4 x10^3uL (1.8-7.7) Lymphocytes # (Auto) 0.8 x10^3/uL (1.0-4.8) L Monocytes # (Auto) 0.6 x10^3/uL (0.0-1.1) Eosinophils # (Auto) 0.3 x10^3/uL (0.0-0.7) Basophils # (Auto) 0.0 x10^3/uL (0.0-0.2) Sodium Level 139 mmol/L (136-145) Potassium Level 3.6 mmol/L (3.5-5.1) Chloride Level 93 mmol/L (98-107) L Carbon Dioxide Level 41 mmol/L (21-32) H Anion Gap 5 (6-14) L Blood Urea Nitrogen 27 mg/dL (7-20) H Creatinine 1.0 mg/dL (0.6-1.0) Estimated GFR (Cockcroft-Gault) 55.3 BUN/Creatinine Ratio 27 (6-20) H Glucose Level 84 mg/dL (70-99) Calcium Level 9.1 mg/dL (8.5-10.1) Total Bilirubin 0.5 mg/dL (0.2-1.0) Aspartate Amino Transferase (AST) 20 U/L (15-37) Alanine Aminotransferase (ALT) 19 U/L (14-59) Alkaline Phosphatase 85 U/L (46-116) Total Protein 7.0 g/dL (6.4-8.2) Albumin 3.0 g/dL (3.4-5.0) L Albumin/Globulin Ratio 0.8 (1.0-1.7) L Valproic Acid Level 57 mcg/mL (50-100) Valproic Acid Last Dose Date 04/18/21 Valproic Acid Last Dose Time 2100 Current Medications: Meds: Laboratory Tests Test 04/19/21 06:00 04/19/21 06:27 Coronavirus (COVID-19)(PCR) Not detected White Blood Count 6.1 x10^3/uL Red Blood Count 3.38 x10^6/uL Hemoglobin 9.1 g/dL Hematocrit 28.7 % Mean Corpuscular Volume 85 fL Mean Corpuscular Hemoglobin 27 pg Mean Corpuscular Hemoglobin Concent 32 g/dL Red Cell Distribution Width 17.3 % Platelet Count 198 x10^3/uL Neutrophils (%) (Auto) 73 % Lymphocytes (%) (Auto) 13 % Monocytes (%) (Auto) 10 % Eosinophils (%) (Auto) 4 % Basophils (%) (Auto) 1 % Neutrophils # (Auto) 4.4 x10^3uL Lymphocytes # (Auto) 0.8 x10^3/uL Monocytes # (Auto) 0.6 x10^3/uL Eosinophils # (Auto) 0.3 x10^3/uL Basophils # (Auto) 0.0 x10^3/uL Sodium Level 139 mmol/L Potassium Level 3.6 mmol/L Chloride Level 93 mmol/L Carbon Dioxide Level 41 mmol/L Anion Gap 5 Blood Urea Nitrogen 27 mg/dL Creatinine 1.0 mg/dL Estimated GFR (Cockcroft-Gault) 55.3 BUN/Creatinine Ratio 27 Glucose Level 84 mg/dL Calcium Level 9.1 mg/dL Total Bilirubin 0.5 mg/dL Aspartate Amino Transf (AST/SGOT) 20 U/L Alanine Aminotransferase (ALT/SGPT) 19 U/L Alkaline Phosphatase 85 U/L Total Protein 7.0 g/dL Albumin 3.0 g/dL Albumin/Globulin Ratio 0.8 Valproic Acid (Depakene) Level 57 mcg/mL Valproic Acid Last Dose Date 04/18/21 Valproic Acid Last Dose Time 2100 Current Medications Medications (Trade) Dose Ordered Sig/Indra Route PRN Reason Start Time Stop Time Status Last Admin Dose Admin Albuterol Sulfate (Ventolin) 1 mg PRN Q4HRS PRN IH FOR ASTHMA 04/02/21 12:00 UNV Amlodipine Besylate (Norvasc) 5 mg DAILY PO 04/03/21 09:00 04/02/21 13:08 DC Aripiprazole (Abilify) 15 mg DAILY PO 04/03/21 09:00 04/19/21 08:59 Aspirin (Aspirin Enteric Coated) 81 mg DAILY PO 04/03/21 09:00 04/19/21 08:58 Atorvastatin Calcium (Lipitor) 20 mg QHS PO 04/02/21 21:00 04/18/21 20:36 Calcium/Vitamin D (Oscal D 500mg/ 200uts) 1 tab BID PO 04/02/21 21:00 04/02/21 13:08 DC Vitamin D (Vitamin D3) 50,000 unit QWE PO 04/03/21 16:00 04/02/21 13:08 DC Clonazepam (KlonoPIN) 0.5 mg PRN BID PRN PO ANXIETY / AGITATION 04/02/21 12:00 Cancel Diclofenac Sodium (Voltaren) 2 joesph QID TP 04/02/21 13:00 04/19/21 17:22 Divalproex Sodium (Depakote Er) 500 mg HS PO 04/02/21 21:00 04/02/21 13:08 DC Docusate Sodium (Colace) 100 mg BID PO 04/02/21 21:00 04/02/21 13:08 DC Enoxaparin Sodium (Lovenox 40mg Syringe) 40 mg HS SQ 04/02/21 21:00 04/02/21 13:08 DC Ferrous Sulfate (Feosol) 325 mg DAILY PO 04/03/21 09:00 04/02/21 13:08 DC Furosemide (Lasix) 40 mg DAILY PO 04/03/21 09:00 04/02/21 13:08 DC Isosorbide Mononitrate (Imdur) 30 mg DAILY08 PO 04/03/21 08:00 04/19/21 08:59 Ketoconazole (Nizoral 2% Shampoo) 1 joesph PRN DAILY PRN TP DANDRUFF 04/02/21 12:00 04/02/21 13:08 DC Levothyroxine Sodium (Synthroid) 75 mcg DAILY06 PO 04/03/21 06:00 04/19/21 05:25 Metoprolol Tartrate (Lopressor) 12.5 mg BID PO 04/02/21 21:00 04/19/21 08:58 Olanzapine (ZyPREXA ZYDIS) 2.5 mg PRN Q2HR PRN PO ANXIETY / AGITATION 04/02/21 12:00 04/02/21 13:08 DC Pantoprazole Sodium (Protonix) 40 mg DAILY08 PO 04/03/21 08:00 04/19/21 08:58 Polyethylene Glycol (miraLAX) 17 gm PRN BID PRN PO CONSTIPATION, 1ST CHOICE 04/02/21 12:00 04/19/21 17:23 Potassium Chloride (Klor-Con) 20 meq BID PO 04/02/21 21:00 04/12/21 10:44 DC 04/11/21 20:15 Ropinirole HCl (Requip) 0.5 mg HS PO 04/02/21 21:00 04/18/21 20:36 Sennosides (Senna) 8.6 mg BIDACBL PO 04/03/21 07:30 04/02/21 13:08 DC Tramadol HCl (Ultram) 50 mg PRN Q6HRS PRN PO MOD -SEV PAIN 04/02/21 12:00 04/02/21 13:08 DC Triamcinolone Acetonide (Kenalog) 1 joesph PRN Q12HR PRN TP ITCHING 04/02/21 12:00 04/02/21 13:08 DC Vitamin A/Vitamin D (Vitamin A & D Ointment) 1 joesph PRN Q1HR PRN TP DRY SKIN / SCALING 04/02/21 12:00 04/02/21 13:08 DC Non-Formulary Medication (Fluoxetine Hcl (Prozac)) 80 mg DAILY08 PO 04/03/21 08:00 04/02/21 13:08 DC Multi-Ingredient Ointment (Analgesic [place]) 1 joesph PRN QID PRN TP MUSCLE PAIN 04/02/21 12:45 Non-Formulary Medication (Olodaterol HCl (Striverdi Respimat)) 2 puff DAILY IH 04/03/21 09:00 04/02/21 13:08 DC Non-Formulary Medication (Quetiapine Fumarate (Seroquel)) 300 mg DAILY08 PO 04/03/21 08:00 04/02/21 13:08 DC Non-Formulary Medication (Quetiapine Fumarate (Seroquel)) 600 mg HS PO 04/02/21 21:00 04/02/21 13:08 DC Acetaminophen (Tylenol) 650 mg PRN Q6HRS PRN PO MILD PAIN / TEMP > 100.3'F 04/02/21 12:30 04/19/21 09:18 Al Hydroxide/Mg Hydroxide (Mylanta Plus Xs) 15 ml PRN AFTMEALHC PRN PO DYSPEPSIA 04/02/21 12:30 Magnesium Hydroxide (Milk Of Magnesia) 2,400 mg PRN QHS PRN PO CONSTIPATION, 2ND CHOICE 04/02/21 12:30 Albuterol Sulfate (Ventolin Hfa Inhaler) 1 puff PRN Q4HRS PRN INH SOA 04/02/21 12:45 04/04/21 09:12 Albuterol Sulfate (Ventolin) 1 mg PRN Q4HRS PRN IH FOR ASTHMA 04/02/21 13:00 UNV Albuterol/ Ipratropium (Duoneb) 3 ml PRN QID PRN NEB copd 04/02/21 13:00 UNV Non-Formulary Medication (Umeclidinium [place] (Incruse Ellipta)) 62.5 mcg DAILY IH 04/03/21 09:00 UNV Furosemide (Lasix) 80 mg BID94 PO 04/02/21 16:00 04/06/21 16:01 DC 04/06/21 09:03 Fluoxetine HCl (PROzac) 30 mg DAILY08 PO 04/03/21 08:00 04/19/21 08:58 Quetiapine Fumarate (SEROquel) 100 mg HS PO 04/02/21 21:00 04/18/21 20:36 Albuterol/ Ipratropium (Combivent Respimat 20-100 Mcg) 1 puff RTQID INH 04/02/21 16:00 04/19/21 17:22 Fluticasone Furoate (ARNUITY 100mcg ELLIPTA) 1 puff DAILY INH 04/03/21 09:00 04/19/21 08:58 Hydroxyzine HCl (Atarax) 25 mg PRN Q8HRS PRN PO ANXIETY / AGITATION 04/02/21 14:15 04/04/21 17:36 DC Divalproex Sodium (Depakote) 125 mg DAILY PO 04/04/21 09:00 04/08/21 17:07 DC 04/08/21 08:31 Divalproex Sodium (Depakote) 375 mg HS PO 04/03/21 21:00 04/08/21 17:07 DC 04/07/21 20:03 Trazodone HCl (Desyrel) 50 mg PRN QHS PRN PO INSOMNIA, MAY REPEAT X1 04/04/21 17:15 04/16/21 19:44 Hydroxyzine HCl (Atarax) 50 mg PRN Q6HRS PRN PO anxiety 04/04/21 17:15 04/19/21 17:23 Furosemide (Lasix) 80 mg DAILY PO 04/07/21 09:00 04/17/21 07:23 DC 04/16/21 08:19 Divalproex Sodium (Depakote) 500 mg HS PO 04/08/21 21:00 04/18/21 20:36 Divalproex Sodium (Depakote) 250 mg DAILY PO 04/09/21 09:00 04/19/21 08:58 Sodium Chloride (Saline Mist Nasal) 1 joesph PRN Q1HR PRN NS NASAL CONGESTION 04/10/21 14:30 04/19/21 17:23 Quetiapine Fumarate (SEROquel) 12.5 mg 0900,1300,1700 PO 04/17/21 09:00 04/19/21 17:23 Furosemide (Lasix) 80 mg BID92 PO 04/17/21 09:00 04/19/21 12:10 Metolazone (Zaroxolyn) 2.5 mg DAILY PO 04/18/21 09:00 04/19/21 08:58 I have reviewed the current psychotropics carefully including drug interactions. Risk benefit ratio favors no change other than as noted in my dictated progress note. Diagnosis: Problems: (1) Schizoaffective disorder, bipolar type (2) Impulse control disorder, unspecified (3) Anxiety disorder, unspecified (4) Major depressive disorder with psychotic features MICHAEL CLARK MD Apr 19, 2021 20:54
[2021-04-20] MEDS: LEVOTHYROXINE 75 MCG TABLET PO SCH (05:30)
[2021-04-20] MEDS: hydrOXYzine HCL 25 MG TABLET PO PRN ×2 (05:30→21:52)
[2021-04-20] MEDS: SODIUM CHLORIDE 0.65% NASAL SPRAY 45ML BOTTLE. NS PRN ×4 (05:30→20:35)
[2021-04-20 06:23] VITALS: BP 104/68
[2021-04-20] MEDS: IPRATROPIUM/ALBUTEROL 20/100mcg/INH INHALER. INH SCH ×4 (08:23→20:32)
[2021-04-20] MEDS: DICLOFENAC SODIUM 1% TOPICAL GEL 100GM TUBE. TP SCH ×4 (08:23→20:32)
[2021-04-20] MEDS: FLUTICASONE FUROATE 100mcg/INH ELLIPTA INHALER. INH SCH (08:23)
[2021-04-20] MEDS: DIVALPROEX SODIUM 250 MG TABLET.DR. PO SCH ×2 (08:24→20:33)
[2021-04-20] MEDS: FUROSEMIDE 80 MG TABLET PO SCH ×2 (08:24→12:16)
[2021-04-20] MEDS: QUEtiapine 25 MG TABLET. PO SCH ×3 (08:24→16:59)
[2021-04-20] MEDS: ASPIRIN ENTERIC COATED 81 MG TABLET.DR. PO SCH (08:24)
[2021-04-20] MEDS: PANTOPRAZOLE 40 MG TABLET. PO SCH (08:24)
[2021-04-20] MEDS: ARIPiprazole 15 MG TABLET PO SCH (08:24)
[2021-04-20] MEDS: ISOSORBIDE MONONITRATE ER 30 MG TAB.ER.24H PO SCH (08:26)
[2021-04-20] MEDS: METOPROLOL TART IMMED RELEASE 25 MG TABLET. PO SCH ×2 (08:26→20:33)
[2021-04-20] MEDS: metOLazone 2.5 MG TABLET PO SCH (08:27)
--- NOTE | 2021-04-20 08:31 | PDOC ---
Exam Note: [place] Note: This note is a late entry for 04/18/2021 covers elements not covered in my initial note. Subjective: The patient was reviewed at treatment team meeting in the morning on 04/18/2021 with Barbra Lugo, Ada Clifford, and Amanda Lyon (social worker assistant), Caity, activity therapy, Mariela Charles, Stripping Shovel Oiler, and Niesha WOMACK, discussed and reviewed the chart. Discussed and reviewed her diagnoses, current psychotropic medications, drug interactions and risk-benefit ratio reviewed. The patient slept 5 hours previous night. Appetite is 100%. She has been attending 2 groups. Chest x-ray showed increase infiltrates right lung probably due to congestive heart failure. We will defer to Dr. Lowe. I met with her in the evening. Review of Systems: Ambulation impaired in wheelchair. No CV, , eye, ENT system symptoms on review. Shortness of breath. Mental Status Exam: The patient is reasonably oriented. Speech has some latency, coherent. Abstraction fair. Computation impaired. Language function intact. Attention span short. Mood and affect remains somewhat withdrawn. Laboratory Data: Reviewed. Impression: Schizoaffective disorder, bipolar type, depressed. Anxiety disorder unspecified. Impulse control disorder unspecified. Major depressive disorder, with history of psychotic features. Plan: No change from initial note. We will adjust psychotropics as clinically indicated. Maintain Abilify, Seroquel, Depakote and Prozac. She is on hydroxyzine p.r.n., trazodone. Valproic acid level is therapeutic at 54. Assessment: Vital Signs/I&O: Vital Signs Date Time Temp Pulse Resp B/P (MAP) Pulse Ox O2 Delivery O2 Flow Rate FiO2 04/20/21 08:26 76 104/68 04/20/21 06:23 98.0 18 96 04/19/21 16:01 Nasal Cannula 5.0 I & O 04/19/21 04/19/21 04/20/21 15:00 23:00 07:00 Intake Total 620 ml 480 ml Balance 620 ml 480 ml Current Medications: I have reviewed the current psychotropics carefully including drug interactions. Risk benefit ratio favors no change other than as noted in my dictated progress note. Diagnosis: Problems: (1) Schizoaffective disorder, bipolar type (2) Impulse control disorder, unspecified (3) Anxiety disorder, unspecified (4) Major depressive disorder with psychotic features MICHAEL CLARK MD Apr 20, 2021 08:31
--- NOTE | 2021-04-20 08:44 | PDOC ---
Exam Note: [place] Note: This note is a late entry for 04/19/2021 covers elements not covered in my initial note. Subjective: The patient was seen individually on 04/19/2021, discussed and reviewed the chart with Niesha WOMACK. She slept 6 hours previous night. She is quite anxious last night. Received hydroxyzine in the morning, was better during the day today. She was frustrated earlier in the day, threw a bottle of mouth wash into the hallway but not aggressive. She has been talking about her mother who on 04/23 many years ago and she states she always had worsening anxiety during the anniversary time. Valproic acid level is 57. Chest x-ray showed increased congestive heart failure, congestion and Lasix was increased to b.i.d. She states it is helpful. Review of Systems: Ambulation impaired in wheelchair. No CV, , eye, ENT system symptoms on review. Shortness of breath. Mental Status Exam: The patient was seen individually in her room, reasonably oriented. Speech coherent. Abstraction fair. Computation impaired. Language function intact. Mood and affect anxious, somewhat labile but improved. She was sitting in her room with lights switched off. I turned them on as visited with her and once again at the end she wanted them turned off. We discussed ways to improve interactions and socializing to help with her mood and anxiety and she states she will attempt that tomorrow. Laboratory Data: Reviewed. Impression: Schizoaffective disorder, bipolar type, depressed. Anxiety disorder unspecified. Impulse control disorder unspecified. Major depressive disorder, with history of psychotic features. Plan: No change from initial note. Assessment: Vital Signs/I&O: Vital Signs Date Time Temp Pulse Resp B/P (MAP) Pulse Ox O2 Delivery O2 Flow Rate FiO2 04/20/21 08:26 76 104/68 04/20/21 06:23 98.0 18 96 04/19/21 16:01 Nasal Cannula 5.0 I & O 0 04/19/21 04/19/21 04/20/21 15:00 23:00 07:00 Intake Total 620 ml 480 ml Balance 620 ml 480 ml Current Medications: I have reviewed the current psychotropics carefully including drug interactions. Risk benefit ratio favors no change other than as noted in my dictated progress note. Diagnosis: Problems: (1) Schizoaffective disorder, bipolar type (2) Impulse control disorder, unspecified (3) Anxiety disorder, unspecified (4) Major depressive disorder with psychotic features MICHAEL CLARK MD Apr 20, 2021 08:44
[2021-04-20 15:31] VITALS: BP 129/84
[2021-04-20] MEDS: rOPINIRole 0.5 MG TABLET. PO SCH (20:32)
[2021-04-20] MEDS: ATORVASTATIN CALCIUM 20 MG TABLET PO SCH (20:32)
[2021-04-20] MEDS: QUEtiapine 100 MG TABLET. PO SCH (20:32)
--- NOTE | 2021-04-20 22:05 | PDOC ---
Exam Note: [place] Note: Please also refer to the separate dictated note~for this date of service dictated separately.~Patient seen individually. Discussed the patient with Nursing staff reviewed the chart.~Reviewed interim history and current functioning. Reviewed vital signs,~Labs/ Radiology~and current medications noted below. Continue current treatment with the changes noted in the dictated addendum note Assessment: Vital Signs/I&O: Vital Signs Date Time Temp Pulse Resp B/P (MAP) Pulse Ox O2 Delivery O2 Flow Rate FiO2 04/20/21 20:33 92 129/84 04/20/21 15:31 97.8 20 96 Nasal Cannula 04/19/21 16:01 5.0 I & O 0 04/19/21 04/19/21 04/20/21 15:00 23:00 07:00 Intake Total 620 ml 480 ml Balance 620 ml 480 ml Current Medications: Meds: Current Medications Medications (Trade) Dose Ordered Sig/Indra Route PRN Reason Start Time Stop Time Status Last Admin Dose Admin Albuterol Sulfate (Ventolin) 1 mg PRN Q4HRS PRN IH FOR ASTHMA 04/02/21 12:00 UNV Amlodipine Besylate (Norvasc) 5 mg DAILY PO 04/03/21 09:00 04/02/21 13:08 DC Aripiprazole (Abilify) 15 mg DAILY PO 04/03/21 09:00 04/20/21 08:24 Aspirin (Aspirin Enteric Coated) 81 mg DAILY PO 04/03/21 09:00 04/20/21 08:24 Atorvastatin Calcium (Lipitor) 20 mg QHS PO 04/02/21 21:00 04/20/21 20:32 Calcium/Vitamin D (Oscal D 500mg/ 200uts) 1 tab BID PO 04/02/21 21:00 04/02/21 13:08 DC Vitamin D (Vitamin D3) 50,000 unit QWE PO 04/03/21 16:00 04/02/21 13:08 DC Clonazepam (KlonoPIN) 0.5 mg PRN BID PRN PO ANXIETY / AGITATION 04/02/21 12:00 Cancel Diclofenac Sodium (Voltaren) 2 joesph QID TP 04/02/21 13:00 04/20/21 20:32 Divalproex Sodium (Depakote Er) 500 mg HS PO 04/02/21 21:00 04/02/21 13:08 DC Docusate Sodium (Colace) 100 mg BID PO 04/02/21 21:00 04/02/21 13:08 DC Enoxaparin Sodium (Lovenox 40mg Syringe) 40 mg HS SQ 04/02/21 21:00 04/02/21 13:08 DC Ferrous Sulfate (Feosol) 325 mg DAILY PO 04/03/21 09:00 04/02/21 13:08 DC Furosemide (Lasix) 40 mg DAILY PO 04/03/21 09:00 04/02/21 13:08 DC Isosorbide Mononitrate (Imdur) 30 mg DAILY08 PO 04/03/21 08:00 04/20/21 08:26 Ketoconazole (Nizoral 2% Shampoo) 1 joesph PRN DAILY PRN TP DANDRUFF 04/02/21 12:00 04/02/21 13:08 DC Levothyroxine Sodium (Synthroid) 75 mcg DAILY06 PO 04/03/21 06:00 04/20/21 05:30 Metoprolol Tartrate (Lopressor) 12.5 mg BID PO 04/02/21 21:00 04/20/21 20:33 Olanzapine (ZyPREXA ZYDIS) 2.5 mg PRN Q2HR PRN PO ANXIETY / AGITATION 04/02/21 12:00 04/02/21 13:08 DC Pantoprazole Sodium (Protonix) 40 mg DAILY08 PO 04/03/21 08:00 04/20/21 08:24 Polyethylene Glycol (miraLAX) 17 gm PRN BID PRN PO CONSTIPATION, 1ST CHOICE 04/02/21 12:00 04/19/21 17:23 Potassium Chloride (Klor-Con) 20 meq BID PO 04/02/21 21:00 04/12/21 10:44 DC 04/11/21 20:15 Ropinirole HCl (Requip) 0.5 mg HS PO 04/02/21 21:00 04/20/21 20:32 Sennosides (Senna) 8.6 mg BIDACBL PO 04/03/21 07:30 04/02/21 13:08 DC Tramadol HCl (Ultram) 50 mg PRN Q6HRS PRN PO MOD -SEV PAIN 04/02/21 12:00 04/02/21 13:08 DC Triamcinolone Acetonide (Kenalog) 1 joesph PRN Q12HR PRN TP ITCHING 04/02/21 12:00 04/02/21 13:08 DC Vitamin A/Vitamin D (Vitamin A & D Ointment) 1 joesph PRN Q1HR PRN TP DRY SKIN / SCALING 04/02/21 12:00 04/02/21 13:08 DC Non-Formulary Medication (Fluoxetine Hcl (Prozac)) 80 mg DAILY08 PO 04/03/21 08:00 04/02/21 13:08 DC Multi-Ingredient Ointment (Analgesic [place]) 1 joesph PRN QID PRN TP MUSCLE PAIN 04/02/21 12:45 Non-Formulary Medication (Olodaterol HCl (Striverdi Respimat)) 2 puff DAILY IH 04/03/21 09:00 04/02/21 13:08 DC Non-Formulary Medication (Quetiapine Fumarate (Seroquel)) 300 mg DAILY08 PO 04/03/21 08:00 04/02/21 13:08 DC Non-Formulary Medication (Quetiapine Fumarate (Seroquel)) 600 mg HS PO 04/02/21 21:00 04/02/21 13:08 DC Acetaminophen (Tylenol) 650 mg PRN Q6HRS PRN PO MILD PAIN / TEMP > 100.3'F 04/02/21 12:30 04/19/21 09:18 Al Hydroxide/Mg Hydroxide (Mylanta Plus Xs) 15 ml PRN AFTMEALHC PRN PO DYSPEPSIA 04/02/21 12:30 04/20/21 08:50 Magnesium Hydroxide (Milk Of Magnesia) 2,400 mg PRN QHS PRN PO CONSTIPATION, 2ND CHOICE 04/02/21 12:30 Albuterol Sulfate (Ventolin Hfa Inhaler) 1 puff PRN Q4HRS PRN INH SOA 04/02/21 12:45 04/04/21 09:12 Albuterol Sulfate (Ventolin) 1 mg PRN Q4HRS PRN IH FOR ASTHMA 04/02/21 13:00 UNV Albuterol/ Ipratropium (Duoneb) 3 ml PRN QID PRN NEB copd 04/02/21 13:00 UNV Non-Formulary Medication (Umeclidinium [place] (Incruse Ellipta)) 62.5 mcg DAILY IH 04/03/21 09:00 UNV Furosemide (Lasix) 80 mg BID94 PO 04/02/21 16:00 04/06/21 16:01 DC 04/06/21 09:03 Fluoxetine HCl (PROzac) 30 mg DAILY08 PO 04/03/21 08:00 04/20/21 08:24 Quetiapine Fumarate (SEROquel) 100 mg HS PO 04/02/21 21:00 04/20/21 20:32 Albuterol/ Ipratropium (Combivent Respimat 20-100 Mcg) 1 puff RTQID INH 04/02/21 16:00 04/20/21 20:32 Fluticasone Furoate (ARNUITY 100mcg ELLIPTA) 1 puff DAILY INH 04/03/21 09:00 04/20/21 08:23 Hydroxyzine HCl (Atarax) 25 mg PRN Q8HRS PRN PO ANXIETY / AGITATION 04/02/21 14:15 04/04/21 17:36 DC Divalproex Sodium (Depakote) 125 mg DAILY PO 04/04/21 09:00 04/08/21 17:07 DC 04/08/21 08:31 Divalproex Sodium (Depakote) 375 mg HS PO 04/03/21 21:00 04/08/21 17:07 DC 04/07/21 20:03 Trazodone HCl (Desyrel) 50 mg PRN QHS PRN PO INSOMNIA, MAY REPEAT X1 04/04/21 17:15 04/16/21 19:44 Hydroxyzine HCl (Atarax) 50 mg PRN Q6HRS PRN PO anxiety 04/04/21 17:15 04/20/21 21:52 Furosemide (Lasix) 80 mg DAILY PO 04/07/21 09:00 04/17/21 07:23 DC 04/16/21 08:19 Divalproex Sodium (Depakote) 500 mg HS PO 04/08/21 21:00 04/20/21 20:33 Divalproex Sodium (Depakote) 250 mg DAILY PO 04/09/21 09:00 04/20/21 08:24 Sodium Chloride (Saline Mist Nasal) 1 joesph PRN Q1HR PRN NS NASAL CONGESTION 04/10/21 14:30 04/20/21 20:35 Quetiapine Fumarate (SEROquel) 12.5 mg 0900,1300,1700 PO 04/17/21 09:00 04/20/21 16:59 Furosemide (Lasix) 80 mg BID92 PO 04/17/21 09:00 04/20/21 12:16 Metolazone (Zaroxolyn) 2.5 mg DAILY PO 04/18/21 09:00 04/20/21 08:27 I have reviewed the current psychotropics carefully including drug interactions. Risk benefit ratio favors no change other than as noted in my dictated progress note. Diagnosis: Problems: (1) Schizoaffective disorder, bipolar type (2) Impulse control disorder, unspecified (3) Anxiety disorder, unspecified (4) Major depressive disorder with psychotic features MICHAEL CLARK MD Apr 20, 2021 22:05
--- NOTE | 2021-04-21 02:57 | PN ---
DATE: 04/20/2021 SUBJECTIVE: The patient was seen today at the nursing staff request with concern that her leg got swollen and weeping. The patient was evaluated before multiple times and we have increased her Lasix to 80 mg twice a day and added Zaroxolyn 2.5 mg once a day. She is on oxygen at 5 liters by nasal cannula. She has chronic obstructive pulmonary disease and she complains of shortness of breath that is not out of worse than her usual. She is mostly wheelchair bound. PHYSICAL EXAMINATION: GENERAL: When I examined her, she looked well and was clearly in no apparent respiratory distress. No pallor, jaundice, cyanosis, or thyromegaly. No jugular venous distention. Mild bilateral lower limb edema. VITAL SIGNS: Her heart rate was 92, blood pressure is 129/84, temperature was 97.8, respiratory rate 20, and oxygen saturation was 96% on 5 liters of oxygen by nasal cannula. HEAD, EYES, EARS, NOSE, AND THROAT: Normocephalic, atraumatic. NECK: Supple. HEART: Showed normal first and second heart sounds. No gallop, rub or murmur. CHEST: Central trachea, equally reduced expansion, reduced air entry, vesicular breath sounds with few bilateral scattered rhonchi. I could not appreciate any crepitation. ABDOMEN: Distended, soft, nontender. NEUROLOGIC: She is grossly intact. LABORATORY DATA: Showed a serum sodium 139, potassium 3.6, chloride 93, bicarbonate 41, anion gap of 5, BUN 27, creatinine 1, estimated GFR was 55 mL per minute. Her glucose was ____, calcium was 9.1. Total bilirubin, AST, ALT, alkaline phosphatase were normal. Total protein 7, albumin 3. Her white cell count was 6000, hemoglobin 9, hematocrit 29, MCV 85, and platelet count of 198,000. D-dimer was not done this time. Her most recent chest x-ray showed that she has right worse than left diffuse pulmonary infiltrate worsened since prior exam, moderate left trace right pleural effusion. We did actually increase her Lasix to 80 mg and Zaroxolyn 2.5 mg. I am not really very impressed with this leg swelling. I do not see any weeping. I will continue with current plan of management. She is already also on fluid restriction. If she continued or the weeping worsened, we might increase the Zaroxolyn to 5 mg daily and increase fluid restriction to 1500 mL in 24 hours. I also will consult Occupational Therapy for lymphedema wrap, if any one of them is experienced in doing it. VIK/CHEPE/CANDELARIA DR: Lore TID: [id number]
[2021-04-21] MEDS: LEVOTHYROXINE 75 MCG TABLET PO SCH (05:52)
[2021-04-21 06:05] VITALS: BP 105/67
[2021-04-21] MEDS: hydrOXYzine HCL 25 MG TABLET PO PRN ×2 (06:13→17:30)
[2021-04-21] MEDS: SODIUM CHLORIDE 0.65% NASAL SPRAY 45ML BOTTLE. NS PRN ×2 (06:13→19:56)
--- NOTE | 2021-04-21 06:46 | PDOC ---
Exam Note: [place] Note: This note is a late entry for 04/17/2021 covers elements not covered in my initial note. Subjective: The patient was seen individually on 04/17/2021, discussed and reviewed the chart with Yesenia WOMACK. The patient slept 4-1/2 hours previous night. She is doing about the same, withdrawn. She spends much time in her room, depressed, anxious. Received hydroxyzine p.r.n. for anxiety. Review of Systems: Impaired ambulation in wheelchair. No CV, , eye, ENT system symptoms on review. Shortness of breath on oxygen supplements. Mental Status Exam: The patient is reasonably oriented. Speech is coherent. Abstraction fair. Computation impaired. Language function intact. Attention span short. Mood and affect remains somewhat withdrawn. She was again in her room with lights shut off and when I left she was wanting me to shut the lights off again. Laboratory Data: Reviewed. Impression: Schizoaffective disorder, bipolar type, depressed. Anxiety disorder unspecified. Impulse control disorder unspecified. Major depressive disorder, with history of psychotic features. Plan: No change from initial note. Assessment: Vital Signs/I&O: Vital Signs Date Time Temp Pulse Resp B/P (MAP) Pulse Ox O2 Delivery O2 Flow Rate FiO2 04/21/21 06:05 97.9 66 18 105/67 (80) 100 Room Air 04/19/21 16:01 5.0 I & O 04/20/21 04/20/21 04/21/21 15:00 23:00 07:00 Intake Total 590 ml 390 ml 360 ml Balance 590 ml 390 ml 360 ml Current Medications: I have reviewed the current psychotropics carefully including drug interactions. Risk benefit ratio favors no change other than as noted in my dictated progress note. Diagnosis: Problems: (1) Schizoaffective disorder, bipolar type (2) Impulse control disorder, unspecified (3) Anxiety disorder, unspecified (4) Major depressive disorder with psychotic features MICHAEL CLARK MD Apr 21, 2021 06:46
--- NOTE | 2021-04-21 07:01 | PDOC ---
Exam Note: [place] Note: This note is a late entry for 04/20/2021 covers elements not covered in my initial note. Subjective: The patient was seen individually on 04/20/2021, discussed and reviewed the chart with Niesha WOMACK. She slept 6 hours previous night. She has had a reasonable day. Review of Systems: Ambulation impaired, in wheelchair. No CV, , eye, ENT system symptoms on review. Shortness of breath on O2 supplements. Mental Status Exam: The patient is reasonably oriented. Speech has some latency, coherent. Abstraction fair. Computation impaired. Language function intact. Attention span short. Mood and affect remains somewhat withdrawn. The patient wanted to increase the Seroquel. She stated she had been on 750 mg a day at the [facility] that was many years ago and I addressed this at some length with her. She was anxious, distractible but otherwise pleasant. No suicidal or homicidal ideation. Laboratory Data: Reviewed. Impression: Schizoaffective disorder, bipolar type, depressed. Anxiety disorder unspecified. Impulse control disorder unspecified. Major depressive disorder, with history of psychotic features. Plan: I would prefer not to increase the Seroquel for now. Maintain current ps ychotropics. Valproic acid level is therapeutic at 57. Adjust further as clinically indicated. Assessment: Vital Signs/I&O: Vital Signs Date Time Temp Pulse Resp B/P (MAP) Pulse Ox O2 Delivery O2 Flow Rate FiO2 04/21/21 06:05 97.9 66 18 105/67 (80) 100 Room Air 04/19/21 16:01 5.0 I & O 04/20/21 04/20/21 04/21/21 15:00 23:00 07:00 Intake Total 590 ml 390 ml 360 ml Balance 590 ml 390 ml 360 ml Current Medications: I have reviewed the current psychotropics carefully including drug interactions. Risk benefit ratio favors no change other than as noted in my dictated progress note. Diagnosis: Problems: (1) Schizoaffective disorder, bipolar type (2) Impulse control disorder, unspecified (3) Anxiety disorder, unspecified (4) Major depressive disorder with psychotic features MICHAEL CLARK MD Apr 21, 2021 07:01
[2021-04-21] MEDS: metOLazone 2.5 MG TABLET PO SCH (08:29)
[2021-04-21] MEDS: METOPROLOL TART IMMED RELEASE 25 MG TABLET. PO SCH ×2 (08:29→19:58)
[2021-04-21] MEDS: ARIPiprazole 15 MG TABLET PO SCH (08:29)
[2021-04-21] MEDS: FUROSEMIDE 80 MG TABLET PO SCH ×2 (08:30→15:18)
[2021-04-21] MEDS: ISOSORBIDE MONONITRATE ER 30 MG TAB.ER.24H PO SCH (08:30)
[2021-04-21] MEDS: PANTOPRAZOLE 40 MG TABLET. PO SCH (08:30)
[2021-04-21] MEDS: DIVALPROEX SODIUM 250 MG TABLET.DR. PO SCH ×2 (08:31→19:57)
[2021-04-21] MEDS: QUEtiapine 25 MG TABLET. PO SCH ×3 (08:31→17:31)
[2021-04-21] MEDS: IPRATROPIUM/ALBUTEROL 20/100mcg/INH INHALER. INH SCH ×4 (08:32→19:56)
[2021-04-21] MEDS: FLUTICASONE FUROATE 100mcg/INH ELLIPTA INHALER. INH SCH (08:33)
[2021-04-21] MEDS: ASPIRIN ENTERIC COATED 81 MG TABLET.DR. PO SCH (08:38)
[2021-04-21] MEDS: DICLOFENAC SODIUM 1% TOPICAL GEL 100GM TUBE. TP SCH ×4 (09:00→19:59)
[2021-04-21 15:48] VITALS: BP 128/81
[2021-04-21] MEDS: QUEtiapine 100 MG TABLET. PO SCH (19:57)
[2021-04-21] MEDS: rOPINIRole 0.5 MG TABLET. PO SCH (19:57)
[2021-04-21] MEDS: ATORVASTATIN CALCIUM 20 MG TABLET PO SCH (19:57)
[2021-04-21] MEDS: traZODone 50 MG TABLET. PO PRN (21:05)
--- NOTE | 2021-04-21 21:41 | PDOC ---
Exam Note: [place] Note: Please also refer to the separate dictated note~for this date of service dictated separately.~Patient seen individually. Discussed the patient with Nursing staff reviewed the chart.~Reviewed interim history and current functioning. Reviewed vital signs,~Labs/ Radiology~and current medications noted below. Continue current treatment with the changes noted in the dictated addendum note Assessment: Vital Signs/I&O: Vital Signs Date Time Temp Pulse Resp B/P (MAP) Pulse Ox O2 Delivery O2 Flow Rate FiO2 04/21/21 19:58 69 128/81 04/21/21 15:48 97.8 22 100 04/21/21 06:05 Room Air 04/19/21 16:01 5.0 I & O 04/20/21 04/20/21 04/21/21 15:00 23:00 07:00 Intake Total 590 ml 390 ml 360 ml Balance 590 ml 390 ml 360 ml Current Medications: Meds: Current Medications Medications (Trade) Dose Ordered Sig/Indra Route PRN Reason Start Time Stop Time Status Last Admin Dose Admin Albuterol Sulfate (Ventolin) 1 mg PRN Q4HRS PRN IH FOR ASTHMA 04/02/21 12:00 UNV Amlodipine Besylate (Norvasc) 5 mg DAILY PO 04/03/21 09:00 04/02/21 13:08 DC Aripiprazole (Abilify) 15 mg DAILY PO 04/03/21 09:00 04/21/21 08:29 Aspirin (Aspirin Enteric Coated) 81 mg DAILY PO 04/03/21 09:00 04/21/21 08:38 Atorvastatin Calcium (Lipitor) 20 mg QHS PO 04/02/21 21:00 04/21/21 19:57 Calcium/Vitamin D (Oscal D 500mg/ 200uts) 1 tab BID PO 04/02/21 21:00 04/02/21 13:08 DC Vitamin D (Vitamin D3) 50,000 unit QWE PO 04/03/21 16:00 04/02/21 13:08 DC Clonazepam (KlonoPIN) 0.5 mg PRN BID PRN PO ANXIETY / AGITATION 04/02/21 12:00 Cancel Diclofenac Sodium (Voltaren) 2 joesph QID TP 04/02/21 13:00 04/21/21 19:59 Divalproex Sodium (Depakote Er) 500 mg HS PO 04/02/21 21:00 04/02/21 13:08 DC Docusate Sodium (Colace) 100 mg BID PO 04/02/21 21:00 04/02/21 13:08 DC Enoxaparin Sodium (Lovenox 40mg Syringe) 40 mg HS SQ 04/02/21 21:00 04/02/21 13:08 DC Ferrous Sulfate (Feosol) 325 mg DAILY PO 04/03/21 09:00 04/02/21 13:08 DC Furosemide (Lasix) 40 mg DAILY PO 04/03/21 09:00 04/02/21 13:08 DC Isosorbide Mononitrate (Imdur) 30 mg DAILY08 PO 04/03/21 08:00 04/21/21 08:30 Ketoconazole (Nizoral 2% Shampoo) 1 joesph PRN DAILY PRN TP DANDRUFF 04/02/21 12:00 04/02/21 13:08 DC Levothyroxine Sodium (Synthroid) 75 mcg DAILY06 PO 04/03/21 06:00 04/21/21 05:52 Metoprolol Tartrate (Lopressor) 12.5 mg BID PO 04/02/21 21:00 04/21/21 19:58 Olanzapine (ZyPREXA ZYDIS) 2.5 mg PRN Q2HR PRN PO ANXIETY / AGITATION 04/02/21 12:00 04/02/21 13:08 DC Pantoprazole Sodium (Protonix) 40 mg DAILY08 PO 04/03/21 08:00 04/21/21 08:30 Polyethylene Glycol (miraLAX) 17 gm PRN BID PRN PO CONSTIPATION, 1ST CHOICE 04/02/21 12:00 04/19/21 17:23 Potassium Chloride (Klor-Con) 20 meq BID PO 04/02/21 21:00 04/12/21 10:44 DC 04/11/21 20:15 Ropinirole HCl (Requip) 0.5 mg HS PO 04/02/21 21:00 04/21/21 19:57 Sennosides (Senna) 8.6 mg BIDACBL PO 04/03/21 07:30 04/02/21 13:08 DC Tramadol HCl (Ultram) 50 mg PRN Q6HRS PRN PO MOD -SEV PAIN 04/02/21 12:00 04/02/21 13:08 DC Triamcinolone Acetonide (Kenalog) 1 joesph PRN Q12HR PRN TP ITCHING 04/02/21 12:00 04/02/21 13:08 DC Vitamin A/Vitamin D (Vitamin A & D Ointment) 1 joesph PRN Q1HR PRN TP DRY SKIN / SCALING 04/02/21 12:00 04/02/21 13:08 DC Non-Formulary Medication (Fluoxetine Hcl (Prozac)) 80 mg DAILY08 PO 04/03/21 08:00 04/02/21 13:08 DC Multi-Ingredient Ointment (Analgesic [place]) 1 joesph PRN QID PRN TP MUSCLE PAIN 04/02/21 12:45 Non-Formulary Medication (Olodaterol HCl (Striverdi Respimat)) 2 puff DAILY IH 04/03/21 09:00 04/02/21 13:08 DC Non-Formulary Medication (Quetiapine Fumarate (Seroquel)) 300 mg DAILY08 PO 04/03/21 08:00 04/02/21 13:08 DC Non-Formulary Medication (Quetiapine Fumarate (Seroquel)) 600 mg HS PO 04/02/21 21:00 04/02/21 13:08 DC Acetaminophen (Tylenol) 650 mg PRN Q6HRS PRN PO MILD PAIN / TEMP > 100.3'F 04/02/21 12:30 04/19/21 09:18 Al Hydroxide/Mg Hydroxide (Mylanta Plus Xs) 15 ml PRN AFTMEALHC PRN PO DYSPEPSIA 04/02/21 12:30 04/20/21 08:50 Magnesium Hydroxide (Milk Of Magnesia) 2,400 mg PRN QHS PRN PO CONSTIPATION, 2ND CHOICE 04/02/21 12:30 Albuterol Sulfate (Ventolin Hfa Inhaler) 1 puff PRN Q4HRS PRN INH SOA 04/02/21 12:45 04/04/21 09:12 Albuterol Sulfate (Ventolin) 1 mg PRN Q4HRS PRN IH FOR ASTHMA 04/02/21 13:00 UNV Albuterol/ Ipratropium (Duoneb) 3 ml PRN QID PRN NEB copd 04/02/21 13:00 UNV Non-Formulary Medication (Umeclidinium [place] (Incruse Ellipta)) 62.5 mcg DAILY IH 04/03/21 09:00 UNV Furosemide (Lasix) 80 mg BID94 PO 04/02/21 16:00 04/06/21 16:01 DC 04/06/21 09:03 Fluoxetine HCl (PROzac) 30 mg DAILY08 PO 04/03/21 08:00 04/21/21 18:34 DC 04/21/21 08:32 Quetiapine Fumarate (SEROquel) 100 mg HS PO 04/02/21 21:00 04/21/21 19:57 Albuterol/ Ipratropium (Combivent Respimat 20-100 Mcg) 1 puff RTQID INH 04/02/21 16:00 04/21/21 19:56 Fluticasone Furoate (ARNUITY 100mcg ELLIPTA) 1 puff DAILY INH 04/03/21 09:00 04/21/21 08:33 Hydroxyzine HCl (Atarax) 25 mg PRN Q8HRS PRN PO ANXIETY / AGITATION 04/02/21 14:15 04/04/21 17:36 DC Divalproex Sodium (Depakote) 125 mg DAILY PO 04/04/21 09:00 04/08/21 17:07 DC 04/08/21 08:31 Divalproex Sodium (Depakote) 375 mg HS PO 04/03/21 21:00 04/08/21 17:07 DC 04/07/21 20:03 Trazodone HCl (Desyrel) 50 mg PRN QHS PRN PO INSOMNIA, MAY REPEAT X1 04/04/21 17:15 04/21/21 21:05 Hydroxyzine HCl (Atarax) 50 mg PRN Q6HRS PRN PO anxiety 04/04/21 17:15 04/21/21 17:30 Furosemide (Lasix) 80 mg DAILY PO 04/07/21 09:00 04/17/21 07:23 DC 04/16/21 08:19 Divalproex Sodium (Depakote) 500 mg HS PO 04/08/21 21:00 04/21/21 19:57 Divalproex Sodium (Depakote) 250 mg DAILY PO 04/09/21 09:00 04/21/21 08:31 Sodium Chloride (Saline Mist Nasal) 1 joesph PRN Q1HR PRN NS NASAL CONGESTION 04/10/21 14:30 04/21/21 19:56 Quetiapine Fumarate (SEROquel) 12.5 mg 0900,1300,1700 PO 04/17/21 09:00 04/21/21 17:31 Furosemide (Lasix) 80 mg BID92 PO 04/17/21 09:00 04/21/21 15:18 Metolazone (Zaroxolyn) 2.5 mg DAILY PO 04/18/21 09:00 04/21/21 08:29 Fluoxetine HCl (PROzac) 40 mg DAILY08 PO 04/22/21 08:00 I have reviewed the current psychotropics carefully including drug interactions. Risk benefit ratio favors no change other than as noted in my dictated progress note. Diagnosis: Problems: (1) Schizoaffective disorder, bipolar type (2) Impulse control disorder, unspecified (3) Anxiety disorder, unspecified (4) Major depressive disorder with psychotic features MICHAEL CLARK MD Apr 21, 2021 21:41
[2021-04-22] MEDS: SODIUM CHLORIDE 0.65% NASAL SPRAY 45ML BOTTLE. NS PRN ×2 (05:32→20:52)
[2021-04-22] MEDS: hydrOXYzine HCL 25 MG TABLET PO PRN (05:32)
[2021-04-22] MEDS: LEVOTHYROXINE 75 MCG TABLET PO SCH (05:32)
[2021-04-22 06:17] VITALS: BP 61/41
--- NOTE | 2021-04-22 07:27 | PDOC ---
Exam Note: [place] Note: This note is a late entry for 04/21/2021 covers elements not covered in my initial note. Subjective: The patient was seen individually on 04/21/2021, discussed and reviewed the chart with Elsy WOMACK. Per nursing report, the patient is doing better, still depressed somewhat withdrawn. Patient states the nursing staff forgot to put her oxygen for 10 mins and she felt more confused. She felt her oxygen saturation dropped and she was able to process this. Review of Systems: Ambulation impaired, in wheelchair. No CV, , eye, ENT system symptoms on review. Shortness of breath on O2 supplements. Mental Status Exam: The patient is alert and oriented. Speech coherent. Abstraction fair. Computation impaired. Language function intact. Attention span short. Mood and affect dysphoric, anxious but improved. Laboratory Data: Reviewed. Impression: Schizoaffective disorder, bipolar type, depressed. Anxiety disorder unspecified. Impulse control disorder unspecified. Major depressive disorder, with history of psychotic features. Plan: Given the patients ongoing depressive symptoms, we will increase Prozac from 30 mg a day to 40 mg a day. Maintain rest of the psychotropics unchanged from initial note. Assessment: Vital Signs/I&O: Vital Signs Date Time Temp Pulse Resp B/P (MAP) Pulse Ox O2 Delivery O2 Flow Rate FiO2 04/22/21 06:17 97.5 76 19 61/41 (48) 83 High Flow Nasal Cannula 5.0 I & O 04/21/21 04/21/21 04/22/21 15:00 23:00 07:00 Intake Total 600 ml 120 ml 120 ml Balance 600 ml 120 ml 120 ml Current Medications: I have reviewed the current psychotropics carefully including drug interactions. Risk benefit ratio favors no change other than as noted in my dictated progress note. Diagnosis: Problems: (1) Schizoaffective disorder, bipolar type (2) Impulse control disorder, unspecified (3) Anxiety disorder, unspecified (4) Major depressive disorder with psychotic features MICHAEL CLARK MD Apr 22, 2021 07:27
[2021-04-22] MEDS: ISOSORBIDE MONONITRATE ER 30 MG TAB.ER.24H PO SCH (08:00)
[2021-04-22] MEDS: IPRATROPIUM/ALBUTEROL 20/100mcg/INH INHALER. INH SCH ×4 (08:06→20:53)
[2021-04-22] MEDS: QUEtiapine 25 MG TABLET. PO SCH ×3 (08:07→17:14)
[2021-04-22] MEDS: ASPIRIN ENTERIC COATED 81 MG TABLET.DR. PO SCH (08:08)
[2021-04-22] MEDS: metOLazone 2.5 MG TABLET PO SCH (08:08)
[2021-04-22] MEDS: DIVALPROEX SODIUM 250 MG TABLET.DR. PO SCH ×2 (08:08→20:51)
[2021-04-22] MEDS: PANTOPRAZOLE 40 MG TABLET. PO SCH (08:09)
[2021-04-22] MEDS: FUROSEMIDE 80 MG TABLET PO SCH ×2 (08:09→13:57)
[2021-04-22] MEDS: ARIPiprazole 15 MG TABLET PO SCH (08:09)
[2021-04-22] MEDS: DICLOFENAC SODIUM 1% TOPICAL GEL 100GM TUBE. TP SCH ×4 (08:12→20:52)
[2021-04-22] MEDS: METOPROLOL TART IMMED RELEASE 25 MG TABLET. PO SCH ×2 (08:30→20:51)
[2021-04-22] MEDS: FLUTICASONE FUROATE 100mcg/INH ELLIPTA INHALER. INH SCH (09:00)
[2021-04-22 15:31] VITALS: BP 126/78
[2021-04-22] MEDS: rOPINIRole 0.5 MG TABLET. PO SCH (20:51)
[2021-04-22] MEDS: ATORVASTATIN CALCIUM 20 MG TABLET PO SCH (20:51)
[2021-04-22] MEDS: QUEtiapine 100 MG TABLET. PO SCH (20:51)
--- NOTE | 2021-04-22 21:48 | PDOC ---
Exam Note: [place] Note: Please also refer to the separate dictated note~for this date of service dictated separately.~Patient seen individually. Discussed the patient with Nursing staff reviewed the chart.~Reviewed interim history and current functioning. Reviewed vital signs,~Labs/ Radiology~and current medications noted below. Continue current treatment with the changes noted in the dictated addendum note Assessment: Vital Signs/I&O: Vital Signs Date Time Temp Pulse Resp B/P (MAP) Pulse Ox O2 Delivery O2 Flow Rate FiO2 04/22/21 20:51 72 126/78 04/22/21 15:31 98.1 18 98 5.0 04/22/21 06:17 High Flow Nasal Cannula I & O 04/21/21 04/21/21 04/22/21 14:59 22:59 06:59 Intake Total 600 ml 120 ml 120 ml Balance 600 ml 120 ml 120 ml Current Medications: Meds: Current Medications Medications (Trade) Dose Ordered Sig/Indra Route PRN Reason Start Time Stop Time Status Last Admin Dose Admin Albuterol Sulfate (Ventolin) 1 mg PRN Q4HRS PRN IH FOR ASTHMA 04/02/21 12:00 UNV Amlodipine Besylate (Norvasc) 5 mg DAILY PO 04/03/21 09:00 04/02/21 13:08 DC Aripiprazole (Abilify) 15 mg DAILY PO 04/03/21 09:00 04/22/21 08:09 Aspirin (Aspirin Enteric Coated) 81 mg DAILY PO 04/03/21 09:00 04/22/21 08:08 Atorvastatin Calcium (Lipitor) 20 mg QHS PO 04/02/21 21:00 04/22/21 20:51 Calcium/Vitamin D (Oscal D 500mg/ 200uts) 1 tab BID PO 04/02/21 21:00 04/02/21 13:08 DC Vitamin D (Vitamin D3) 50,000 unit QWE PO 04/03/21 16:00 04/02/21 13:08 DC Clonazepam (KlonoPIN) 0.5 mg PRN BID PRN PO ANXIETY / AGITATION 04/02/21 12:00 Cancel Diclofenac Sodium (Voltaren) 2 joesph QID TP 04/02/21 13:00 04/22/21 20:52 Divalproex Sodium (Depakote Er) 500 mg HS PO 04/02/21 21:00 04/02/21 13:08 DC Docusate Sodium (Colace) 100 mg BID PO 04/02/21 21:00 04/02/21 13:08 DC Enoxaparin Sodium (Lovenox 40mg Syringe) 40 mg HS SQ 04/02/21 21:00 04/02/21 13:08 DC Ferrous Sulfate (Feosol) 325 mg DAILY PO 04/03/21 09:00 04/02/21 13:08 DC Furosemide (Lasix) 40 mg DAILY PO 04/03/21 09:00 04/02/21 13:08 DC Isosorbide Mononitrate (Imdur) 30 mg DAILY08 PO 04/03/21 08:00 04/22/21 08:00 Ketoconazole (Nizoral 2% Shampoo) 1 joesph PRN DAILY PRN TP DANDRUFF 04/02/21 12:00 04/02/21 13:08 DC Levothyroxine Sodium (Synthroid) 75 mcg DAILY06 PO 04/03/21 06:00 04/22/21 05:32 Metoprolol Tartrate (Lopressor) 12.5 mg BID PO 04/02/21 21:00 04/21/21 19:58 Olanzapine (ZyPREXA ZYDIS) 2.5 mg PRN Q2HR PRN PO ANXIETY / AGITATION 04/02/21 12:00 04/02/21 13:08 DC Pantoprazole Sodium (Protonix) 40 mg DAILY08 PO 04/03/21 08:00 04/22/21 08:09 Polyethylene Glycol (miraLAX) 17 gm PRN BID PRN PO CONSTIPATION, 1ST CHOICE 04/02/21 12:00 04/19/21 17:23 Potassium Chloride (Klor-Con) 20 meq BID PO 04/02/21 21:00 04/12/21 10:44 DC 04/11/21 20:15 Ropinirole HCl (Requip) 0.5 mg HS PO 04/02/21 21:00 04/22/21 20:51 Sennosides (Senna) 8.6 mg BIDACBL PO 04/03/21 07:30 04/02/21 13:08 DC Tramadol HCl (Ultram) 50 mg PRN Q6HRS PRN PO MOD -SEV PAIN 04/02/21 12:00 04/02/21 13:08 DC Triamcinolone Acetonide (Kenalog) 1 joesph PRN Q12HR PRN TP ITCHING 04/02/21 12:00 04/02/21 13:08 DC Vitamin A/Vitamin D (Vitamin A & D Ointment) 1 joesph PRN Q1HR PRN TP DRY SKIN / SCALING 04/02/21 12:00 04/02/21 13:08 DC Non-Formulary Medication (Fluoxetine Hcl (Prozac)) 80 mg DAILY08 PO 04/03/21 08:00 04/02/21 13:08 DC Multi-Ingredient Ointment (Analgesic [place]) 1 joesph PRN QID PRN TP MUSCLE PAIN 04/02/21 12:45 Non-Formulary Medication (Olodaterol HCl (Striverdi Respimat)) 2 puff DAILY IH 04/03/21 09:00 04/02/21 13:08 DC Non-Formulary Medication (Quetiapine Fumarate (Seroquel)) 300 mg DAILY08 PO 04/03/21 08:00 04/02/21 13:08 DC Non-Formulary Medication (Quetiapine Fumarate (Seroquel)) 600 mg HS PO 04/02/21 21:00 04/02/21 13:08 DC Acetaminophen (Tylenol) 650 mg PRN Q6HRS PRN PO MILD PAIN / TEMP > 100.3'F 04/02/21 12:30 04/19/21 09:18 Al Hydroxide/Mg Hydroxide (Mylanta Plus Xs) 15 ml PRN AFTMEALHC PRN PO DYSPEPSIA 04/02/21 12:30 04/20/21 08:50 Magnesium Hydroxide (Milk Of Magnesia) 2,400 mg PRN QHS PRN PO CONSTIPATION, 2ND CHOICE 04/02/21 12:30 Albuterol Sulfate (Ventolin Hfa Inhaler) 1 puff PRN Q4HRS PRN INH SOA 04/02/21 12:45 04/04/21 09:12 Albuterol Sulfate (Ventolin) 1 mg PRN Q4HRS PRN IH FOR ASTHMA 04/02/21 13:00 UNV Albuterol/ Ipratropium (Duoneb) 3 ml PRN QID PRN NEB copd 04/02/21 13:00 UNV Non-Formulary Medication (Umeclidinium [place] (Incruse Ellipta)) 62.5 mcg DAILY IH 04/03/21 09:00 UNV Furosemide (Lasix) 80 mg BID94 PO 04/02/21 16:00 04/06/21 16:01 DC 04/06/21 09:03 Fluoxetine HCl (PROzac) 30 mg DAILY08 PO 04/03/21 08:00 04/21/21 18:34 DC 04/21/21 08:32 Quetiapine Fumarate (SEROquel) 100 mg HS PO 04/02/21 21:00 04/22/21 20:51 Albuterol/ Ipratropium (Combivent Respimat 20-100 Mcg) 1 puff RTQID INH 04/02/21 16:00 04/22/21 20:53 Fluticasone Furoate (ARNUITY 100mcg ELLIPTA) 1 puff DAILY INH 04/03/21 09:00 04/22/21 09:00 Hydroxyzine HCl (Atarax) 25 mg PRN Q8HRS PRN PO ANXIETY / AGITATION 04/02/21 14:15 04/04/21 17:36 DC Divalproex Sodium (Depakote) 125 mg DAILY PO 04/04/21 09:00 04/08/21 17:07 DC 04/08/21 08:31 Divalproex Sodium (Depakote) 375 mg HS PO 04/03/21 21:00 04/08/21 17:07 DC 04/07/21 20:03 Trazodone HCl (Desyrel) 50 mg PRN QHS PRN PO INSOMNIA, MAY REPEAT X1 04/04/21 17:15 04/21/21 21:05 Hydroxyzine HCl (Atarax) 50 mg PRN Q6HRS PRN PO anxiety 04/04/21 17:15 04/22/21 05:32 Furosemide (Lasix) 80 mg DAILY PO 04/07/21 09:00 04/17/21 07:23 DC 04/16/21 08:19 Divalproex Sodium (Depakote) 500 mg HS PO 04/08/21 21:00 04/22/21 20:51 Divalproex Sodium (Depakote) 250 mg DAILY PO 04/09/21 09:00 04/22/21 08:08 Sodium Chloride (Saline Mist Nasal) 1 joesph PRN Q1HR PRN NS NASAL CONGESTION 04/10/21 14:30 04/22/21 20:52 Quetiapine Fumarate (SEROquel) 12.5 mg 0900,1300,1700 PO 04/17/21 09:00 04/22/21 17:14 Furosemide (Lasix) 80 mg BID92 PO 04/17/21 09:00 04/22/21 13:57 Metolazone (Zaroxolyn) 2.5 mg DAILY PO 04/18/21 09:00 04/22/21 08:08 Fluoxetine HCl (PROzac) 40 mg DAILY08 PO 04/22/21 08:00 04/22/21 08:08 Current Medications Medications (Trade) Dose Ordered Sig/Indra Route PRN Reason Start Time Stop Time Status Last Admin Dose Admin Fluoxetine HCl (PROzac) 40 mg DAILY08 PO 04/22/21 08:00 04/22/21 08:08 I have reviewed the current psychotropics carefully including drug interactions. Risk benefit ratio favors no change other than as noted in my dictated progress note. Diagnosis: Problems: (1) Schizoaffective disorder, bipolar type (2) Impulse control disorder, unspecified (3) Anxiety disorder, unspecified (4) Major depressive disorder with psychotic features MICHAEL CLARK MD Apr 22, 2021 21:48
[2021-04-23] MEDS: LEVOTHYROXINE 75 MCG TABLET PO SCH (05:34)
[2021-04-23] MEDS: SODIUM CHLORIDE 0.65% NASAL SPRAY 45ML BOTTLE. NS PRN ×4 (05:34→17:59)
[2021-04-23 06:04] VITALS: BP 103/68
--- NOTE | 2021-04-23 08:22 | RAD ---
EXAM: Left knee, 2 views. HISTORY: Pain. COMPARISON: 06/18/2020. FINDINGS: 2 views of the left knee are obtained. There is a medial compartment left knee arthroplasty . There is chronic compression and sclerosis involving the medial tibial plateau is lucency surroundi ng the tibial arthroplastic component. This is stable in appearance. There is moderate lateral compar tment and patellofemoral compartment spurring. There is a small joint effusion. There is genu varus. There is soft tissue edema. There is suspected heterotopic ossification of the soft tissues along the posterior medial left knee. IMPRESSION: 1. Left knee medial compartment in compartment arthroplasty. There is stable depression and sclerosis involving the left tibial plateau and lucency surrounding the tibial arthroplastic component. This c an be seen with loosening. 2. Moderate left knee osteoarthritis with small joint effusion and genu varus. Electronically signed by: Kourtney Osman MD (04/23/2021 8:20 AM) [id number]
[2021-04-23] MEDS: FLUTICASONE FUROATE 100mcg/INH ELLIPTA INHALER. INH SCH (08:36)
[2021-04-23] MEDS: IPRATROPIUM/ALBUTEROL 20/100mcg/INH INHALER. INH SCH ×4 (08:36→20:19)
[2021-04-23] MEDS: ASPIRIN ENTERIC COATED 81 MG TABLET.DR. PO SCH (08:37)
[2021-04-23] MEDS: metOLazone 2.5 MG TABLET PO SCH (08:37)
[2021-04-23] MEDS: FUROSEMIDE 80 MG TABLET PO SCH ×2 (08:37→12:28)
[2021-04-23] MEDS: DIVALPROEX SODIUM 250 MG TABLET.DR. PO SCH ×2 (08:38→20:20)
[2021-04-23] MEDS: PANTOPRAZOLE 40 MG TABLET. PO SCH (08:38)
[2021-04-23] MEDS: QUEtiapine 25 MG TABLET. PO SCH ×3 (08:38→17:59)
[2021-04-23] MEDS: ISOSORBIDE MONONITRATE ER 30 MG TAB.ER.24H PO SCH (08:38)
[2021-04-23] MEDS: ARIPiprazole 15 MG TABLET PO SCH (08:38)
[2021-04-23] MEDS: DICLOFENAC SODIUM 1% TOPICAL GEL 100GM TUBE. TP SCH ×4 (08:39→21:00)
[2021-04-23] MEDS: METOPROLOL TART IMMED RELEASE 25 MG TABLET. PO SCH ×2 (09:00→20:20)
[2021-04-23 15:30] VITALS: BP 107/71
[2021-04-23] MEDS: QUEtiapine 100 MG TABLET. PO SCH (20:19)
[2021-04-23] MEDS: rOPINIRole 0.5 MG TABLET. PO SCH (20:19)
[2021-04-23] MEDS: ATORVASTATIN CALCIUM 20 MG TABLET PO SCH (20:20)
[2021-04-23] MEDS: hydrOXYzine HCL 25 MG TABLET PO PRN (20:22)
[2021-04-23] MEDS: traZODone 50 MG TABLET. PO PRN ×2 (20:22→23:00)
--- NOTE | 2021-04-23 21:33 | PDOC ---
Exam Note: [place] Note: Please also refer to the separate dictated note~for this date of service dictated separately.~Patient seen individually. Discussed the patient with Nursing staff reviewed the chart.~Reviewed interim history and current functioning. Reviewed vital signs,~Labs/ Radiology~and current medications noted below. Continue current treatment with the changes noted in the dictated addendum note Assessment: Vital Signs/I&O: Vital Signs Date Time Temp Pulse Resp B/P (MAP) Pulse Ox O2 Delivery O2 Flow Rate FiO2 04/23/21 20:20 85 107/71 04/23/21 15:30 98.0 16 95 Nasal Cannula 5.0 I & O 04/22/21 04/22/21 04/23/21 15:00 23:00 07:00 Intake Total 560 ml 480 ml Balance 560 ml 480 ml Labs: Laboratory Tests Test 04/23/21 06:00 SARS-CoV-2 (PCR) Positive (NOT DETECTD) *A Current Medications: Meds: Laboratory Tests Test 04/23/21 06:00 Coronavirus (COVID-19)(PCR) Positive Current Medications Medications (Trade) Dose Ordered Sig/Indra Route PRN Reason Start Time Stop Time Status Last Admin Dose Admin Albuterol Sulfate (Ventolin) 1 mg PRN Q4HRS PRN IH FOR ASTHMA 04/02/21 12:00 UNV Amlodipine Besylate (Norvasc) 5 mg DAILY PO 04/03/21 09:00 04/02/21 13:08 DC Aripiprazole (Abilify) 15 mg DAILY PO 04/03/21 09:00 04/23/21 08:38 Aspirin (Aspirin Enteric Coated) 81 mg DAILY PO 04/03/21 09:00 04/23/21 08:37 Atorvastatin Calcium (Lipitor) 20 mg QHS PO 04/02/21 21:00 04/23/21 20:20 Calcium/Vitamin D (Oscal D 500mg/ 200uts) 1 tab BID PO 04/02/21 21:00 04/02/21 13:08 DC Vitamin D (Vitamin D3) 50,000 unit QWE PO 04/03/21 16:00 04/02/21 13:08 DC Clonazepam (KlonoPIN) 0.5 mg PRN BID PRN PO ANXIETY / AGITATION 04/02/21 12:00 Cancel Diclofenac Sodium (Voltaren) 2 joesph QID TP 04/02/21 13:00 04/23/21 17:59 Divalproex Sodium (Depakote Er) 500 mg HS PO 04/02/21 21:00 04/02/21 13:08 DC Docusate Sodium (Colace) 100 mg BID PO 04/02/21 21:00 04/02/21 13:08 DC Enoxaparin Sodium (Lovenox 40mg Syringe) 40 mg HS SQ 04/02/21 21:00 04/02/21 13:08 DC Ferrous Sulfate (Feosol) 325 mg DAILY PO 04/03/21 09:00 04/02/21 13:08 DC Furosemide (Lasix) 40 mg DAILY PO 04/03/21 09:00 04/02/21 13:08 DC Isosorbide Mononitrate (Imdur) 30 mg DAILY08 PO 04/03/21 08:00 04/23/21 08:38 Ketoconazole (Nizoral 2% Shampoo) 1 joesph PRN DAILY PRN TP DANDRUFF 04/02/21 12:00 04/02/21 13:08 DC Levothyroxine Sodium (Synthroid) 75 mcg DAILY06 PO 04/03/21 06:00 04/23/21 05:34 Metoprolol Tartrate (Lopressor) 12.5 mg BID PO 04/02/21 21:00 04/21/21 19:58 Olanzapine (ZyPREXA ZYDIS) 2.5 mg PRN Q2HR PRN PO ANXIETY / AGITATION 04/02/21 12:00 04/02/21 13:08 DC Pantoprazole Sodium (Protonix) 40 mg DAILY08 PO 04/03/21 08:00 04/23/21 08:38 Polyethylene Glycol (miraLAX) 17 gm PRN BID PRN PO CONSTIPATION, 1ST CHOICE 04/02/21 12:00 04/19/21 17:23 Potassium Chloride (Klor-Con) 20 meq BID PO 04/02/21 21:00 04/12/21 10:44 DC 04/11/21 20:15 Ropinirole HCl (Requip) 0.5 mg HS PO 04/02/21 21:00 04/23/21 20:19 Sennosides (Senna) 8.6 mg BIDACBL PO 04/03/21 07:30 04/02/21 13:08 DC Tramadol HCl (Ultram) 50 mg PRN Q6HRS PRN PO MOD -SEV PAIN 04/02/21 12:00 04/02/21 13:08 DC Triamcinolone Acetonide (Kenalog) 1 joesph PRN Q12HR PRN TP ITCHING 04/02/21 12:00 04/02/21 13:08 DC Vitamin A/Vitamin D (Vitamin A & D Ointment) 1 joesph PRN Q1HR PRN TP DRY SKIN / SCALING 04/02/21 12:00 04/02/21 13:08 DC Non-Formulary Medication (Fluoxetine Hcl (Prozac)) 80 mg DAILY08 PO 04/03/21 08:00 04/02/21 13:08 DC Multi-Ingredient Ointment (Analgesic [place]) 1 joesph PRN QID PRN TP MUSCLE PAIN 04/02/21 12:45 Non-Formulary Medication (Olodaterol HCl ([place]river[place] Respimat)) 2 puff DAILY IH 04/03/21 09:00 04/02/21 13:08 DC Non-Formulary Medication (Quetiapine Fumarate (Seroquel)) 300 mg DAILY08 PO 04/03/21 08:00 04/02/21 13:08 DC Non-Formulary Medication (Quetiapine Fumarate (Seroquel)) 600 mg HS PO 04/02/21 21:00 04/02/21 13:08 DC Acetaminophen (Tylenol) 650 mg PRN Q6HRS PRN PO MILD PAIN / TEMP > 100.3'F 04/02/21 12:30 04/19/21 09:18 Al Hydroxide/Mg Hydroxide (Mylanta Plus Xs) 15 ml PRN AFTMEALHC PRN PO DYSPEPSIA 04/02/21 12:30 04/20/21 08:50 Magnesium Hydroxide (Milk Of Magnesia) 2,400 mg PRN QHS PRN PO CONSTIPATION, 2ND CHOICE 04/02/21 12:30 04/23/21 08:40 Albuterol Sulfate (Ventolin Hfa Inhaler) 1 puff PRN Q4HRS PRN INH SOA 04/02/21 12:45 04/04/21 09:12 Albuterol Sulfate (Ventolin) 1 mg PRN Q4HRS PRN IH FOR ASTHMA 04/02/21 13:00 UNV Albuterol/ Ipratropium (Duoneb) 3 ml PRN QID PRN NEB copd 04/02/21 13:00 UNV Non-Formulary Medication (Umeclidinium [place] (Incruse Ellipta)) 62.5 mcg DAILY IH 04/03/21 09:00 UNV Furosemide (Lasix) 80 mg BID94 PO 04/02/21 16:00 04/06/21 16:01 DC 04/06/21 09:03 Fluoxetine HCl (PROzac) 30 mg DAILY08 PO 04/03/21 08:00 04/21/21 18:34 DC 04/21/21 08:32 Quetiapine Fumarate (SEROquel) 100 mg HS PO 04/02/21 21:00 04/23/21 20:19 Albuterol/ Ipratropium (Combivent Respimat 20-100 Mcg) 1 puff RTQID INH 04/02/21 16:00 04/23/21 20:19 Fluticasone Furoate (ARNUITY 100mcg ELLIPTA) 1 puff DAILY INH 04/03/21 09:00 04/23/21 08:36 Hydroxyzine HCl (Atarax) 25 mg PRN Q8HRS PRN PO ANXIETY / AGITATION 04/02/21 14:15 04/04/21 17:36 DC Divalproex Sodium (Depakote) 125 mg DAILY PO 04/04/21 09:00 04/08/21 17:07 DC 04/08/21 08:31 Divalproex Sodium (Depakote) 375 mg HS PO 04/03/21 21:00 04/08/21 17:07 DC 04/07/21 20:03 Trazodone HCl (Desyrel) 50 mg PRN QHS PRN PO INSOMNIA, MAY REPEAT X1 04/04/21 17:15 04/23/21 20:22 Hydroxyzine HCl (Atarax) 50 mg PRN Q6HRS PRN PO anxiety 04/04/21 17:15 04/23/21 20:22 Furosemide (Lasix) 80 mg DAILY PO 04/07/21 09:00 04/17/21 07:23 DC 04/16/21 08:19 Divalproex Sodium (Depakote) 500 mg HS PO 04/08/21 21:00 04/23/21 20:20 Divalproex Sodium (Depakote) 250 mg DAILY PO 04/09/21 09:00 04/23/21 08:38 Sodium Chloride (Saline Mist Nasal) 1 joesph PRN Q1HR PRN NS NASAL CONGESTION 04/10/21 14:30 04/23/21 17:59 Quetiapine Fumarate (SEROquel) 12.5 mg 0900,1300,1700 PO 04/17/21 09:00 04/23/21 17:59 Furosemide (Lasix) 80 mg BID92 PO 04/17/21 09:00 04/23/21 12:28 Metolazone (Zaroxolyn) 2.5 mg DAILY PO 04/18/21 09:00 04/23/21 08:37 Fluoxetine HCl (PROzac) 40 mg DAILY08 PO 04/22/21 08:00 04/23/21 08:39 I have reviewed the current psychotropics carefully including drug interactions. Risk benefit ratio favors no change other than as noted in my dictated progress note. Diagnosis: Problems: (1) Schizoaffective disorder, bipolar type (2) Impulse control disorder, unspecified (3) Anxiety disorder, unspecified (4) Major depressive disorder with psychotic features MICHAEL CLARK MD Apr 23, 2021 21:33
[2021-04-23] MEDS: ACETAMINOPHEN 325 MG TABLET PO PRN (23:00)
[2021-04-24] MEDS: LEVOTHYROXINE 75 MCG TABLET PO SCH (05:34)
[2021-04-24] MEDS: FLUTICASONE FUROATE 100mcg/INH ELLIPTA INHALER. INH SCH (05:54)
[2021-04-24] MEDS: SODIUM CHLORIDE 0.65% NASAL SPRAY 45ML BOTTLE. NS PRN (05:54)
[2021-04-24] MEDS: IPRATROPIUM/ALBUTEROL 20/100mcg/INH INHALER. INH SCH (05:54)
--- NOTE | 2021-04-24 05:56 | RAD ---
XR CHEST 1V INDICATION: Shortness of air COMPARISON STUDY: 04/18/2021. FINDINGS: Lungs: Normal lung volume. Diffuse bilateral opacities, progressed from the lung. Pleura: Small to moderate bilateral pleural effusions. Heart and Mediastinum: Stable cardiomediastinal silhouette and great vessels. Bones and Soft Tissues: Stable regional skeleton and soft tissues. IMPRESSION: 1. Diffuse bilateral opacities, progressed in the left. 2. Small to moderate bilateral pleural effusions. Electronically signed by: Sanjeev Rodríguez MD (04/24/2021 5:54 AM) [facility]ALTHSaumya
[2021-04-24 06:08] LABS: BGAS PO2 143 mmHg (80-100)
[2021-04-24 06:09] LABS: FIO2 38 %; O2 SAT BGAS 99 % (92-99)
[2021-04-24 06:10] LABS: BGAS PCO2 75 mmHg (35-45)
[2021-04-24 06:19] VITALS: BP 111/64
[2021-04-24] MEDS ORDERED: FLUT100B IH (06:27)
[2021-04-24 06:28] LABS: BASO % 1 % (0-3); EOS # 0.2 x10^3/uL (0.0-0.7); EOS % 3 % (0-3); HEMATOCRIT 28.9 % (36.0-47.0); HEMOGLOBIN 9.3 g/dL (12.0-15.5); LYMPH # 0.8 x10^3/uL (1.0-4.8); LYMPH % 12 % (24-48); MEAN CORPUSCULAR HEMOGLOBIN 27 pg (25-35); MEAN CORPUSCULAR HGB CONC 32 g/dL (31-37); MEAN CORPUSCULAR VOLUME 83 fL (79-100); MONO % 14 % (0-9); NEUT # 4.9 x10^3uL (1.8-7.7); NEUT % 71 % (31-73); PLATELET COUNT 244 x10^3/uL (140-400); RED BLOOD COUNT 3.49 x10^6/uL (3.50-5.40); RED CELL DISTRIBUTION WIDTH 17.3 % (11.5-14.5); WHITE BLOOD COUNT 6.9 x10^3/uL (4.0-11.0)
[2021-04-24] MEDS ORDERED: SODI44SP14 NS (06:28)
[2021-04-24] MEDS ORDERED: MAGN24003 PO (06:29)
[2021-04-24] MEDS ORDERED: MAG-124 PO (06:30)
[2021-04-24] MEDS ORDERED: POTA-121 PO (06:35)
[2021-04-24] MEDS ORDERED: QUET25TA5 PO (06:39)
[2021-04-24] MEDS ORDERED: TRAZ-120 PO (06:41)
[2021-04-24] MEDS ORDERED: DIVA500T2 PO (06:42)
[2021-04-24] MEDS ORDERED: DIVA250T4 PO (06:43)
[2021-04-24] MEDS ORDERED: METO2.5T PO (06:44)
[2021-04-24] MEDS ORDERED: ACET325T9 PO (06:45)
[2021-04-24 06:48] LABS: ALBUMIN 3.1 g/dL (3.4-5.0); ALBUMIN/GLOBULIN RATIO 0.7 (1.0-1.7); ALK PHOS 86 U/L (46-116); ALT (SGPT) 12 U/L (14-59); AST (SGOT) 22 U/L (15-37); BLOOD UREA NITROGEN 41 mg/dL (7-20); BUN/CREATININE RATIO 37 (6-20); CALCIUM 9.3 mg/dL (8.5-10.1); CHLORIDE 83 mmol/L (98-107); CREATININE 1.1 mg/dL (0.6-1.0); GFR 49.5; GLUCOSE 90 mg/dL (70-99); SODIUM 132 mmol/L (136-145); TOTAL BILIRUBIN 0.6 mg/dL (0.2-1.0); TOTAL PROTEIN 7.3 g/dL (6.4-8.2)
[2021-04-24 06:49] LABS: ANION GAP 4 (6-14); CARBON DIOXIDE > 45 mmol/L (21-32)
[2021-04-24 06:52] LABS: POTASSIUM 2.7 mmol/L (3.5-5.1)
--- NOTE | 2021-04-24 07:18 | PDOC ---
Exam Note: [place] Note: This note is a late entry for 04/22/2021 covers elements not covered in my initial note. Subjective: The patient was seen individually on 04/22/2021, discussed and reviewed the chart with Jennifer WOMACK. She slept 3-1/2 hours previous night. The patient had a difficult morning but then later was laughing. She held the nursing staff and attended to her, quite appropriately. She still has difficulty breathing on 5 L oxygen and oxygen saturations are borderline. I met with her in her room at some length. Review of Systems: Ambulation impaired, in wheelchair. No CV, , eye, ENT system symptoms on review. Shortness of breath on O2 supplements. Mental Status Exam: The patient is well oriented. Speech coherent, has some latency. Abstraction fair. Computation impaired. Language function intact. Mood and affect still somewhat dysphoric, anxious but better than before. No suicidal or homicidal ideation. Laboratory Data: Reviewed. Impression: Schizoaffective disorder, bipolar type, depressed. Anxiety disorder unspecified. Impulse control disorder unspecified. Major depressive disorder, with history of psychotic features. Plan: Maintain rest of the psychotropics unchanged from initial note. Assessment: Vital Signs/I&O: Vital Signs Date Time Temp Pulse Resp B/P (MAP) Pulse Ox O2 Delivery O2 Flow Rate FiO2 04/24/21 06:19 98.4 81 24 111/64 (80) 100 5.0 04/23/21 15:30 Nasal Cannula I & O 04/23/21 04/23/21 04/24/21 15:00 23:00 07:00 Intake Total 840 ml 360 ml Balance 840 ml 360 ml Labs: Laboratory Tests Test 04/24/21 05:45 04/24/21 06:14 Blood pH 7.50 (7.35-7.45) H Blood Gas PCO2 75 mmHg (35-45) *H Blood Gas PO2 143 mmHg (80-100) H Blood Gas HCO3 58 mmol/L (22-26) H Arterial Bld O2 Saturation (Calc) 99 % (92-99) FiO2 38 % White Blood Count 6.9 x10^3/uL (4.0-11.0) Red Blood Count 3.49 x10^6/uL (3.50-5.40) L Hemoglobin 9.3 g/dL (12.0-15.5) L Hematocrit 28.9 % (36.0-47.0) L Mean Corpuscular Volume 83 fL (79-100) Mean Corpuscular Hemoglobin 27 pg (25-35) Mean Corpuscular Hemoglobin Concent 32 g/dL (31-37) Red Cell Distribution Width 17.3 % (11.5-14.5) H Platelet Count 244 x10^3/uL (140-400) Neutrophils (%) (Auto) 71 % (31-73) Lymphocytes (%) (Auto) 12 % (24-48) L Monocytes (%) (Auto) 14 % (0-9) H Eosinophils (%) (Auto) 3 % (0-3) Basophils (%) (Auto) 1 % (0-3) Neutrophils # (Auto) 4.9 x10^3uL (1.8-7.7) Lymphocytes # (Auto) 0.8 x10^3/uL (1.0-4.8) L Monocytes # (Auto) 1.0 x10^3/uL (0.0-1.1) Eosinophils # (Auto) 0.2 x10^3/uL (0.0-0.7) Basophils # (Auto) 0.0 x10^3/uL (0.0-0.2) D-Dimer (Kelli) 1.83 mg/L (0.00-0.50) H Sodium Level 132 mmol/L (136-145) L Potassium Level 2.7 mmol/L (3.5-5.1) *L Chloride Level 83 mmol/L (98-107) L Carbon Dioxide Level > 45 mmol/L (21-32) H Anion Gap 4 (6-14) L Blood Urea Nitrogen 41 mg/dL (7-20) H Creatinine 1.1 mg/dL (0.6-1.0) H Estimated GFR (Cockcroft-Gault) 49.5 BUN/Creatinine Ratio 37 (6-20) H Glucose Level 90 mg/dL (70-99) Lactic Acid Level 0.8 mmol/L (0.4-2.0) Calcium Level 9.3 mg/dL (8.5-10.1) Total Bilirubin 0.6 mg/dL (0.2-1.0) Aspartate Amino Transferase (AST) 22 U/L (15-37) Alanine Aminotransferase (ALT) 12 U/L (14-59) L Alkaline Phosphatase 86 U/L (46-116) AC-Fdh-Z-Type Natriuretic Peptide 9705 pg/mL (0-124) H Total Protein 7.3 g/dL (6.4-8.2) Albumin 3.1 g/dL (3.4-5.0) L Albumin/Globulin Ratio 0.7 (1.0-1.7) L Current Medications: I have reviewed the current psychotropics carefully including drug interactions. Risk benefit ratio favors no change other than as noted in my dictated progress note. Diagnosis: Problems: (1) Schizoaffective disorder, bipolar type (2) Impulse control disorder, unspecified (3) Anxiety disorder, unspecified (4) Major depressive disorder with psychotic features MICHAEL CLARK MD Apr 24, 2021 07:18
--- NOTE | 2021-04-24 07:34 | PDOC ---
Exam Note: [place] Note: This note is a late entry for 04/23/2021 covers elements not covered in my initial note. Subjective: The patient was seen individually on 04/23/2021, discussed and reviewed the chart with Jayy WOMACK. She slept 6 hours previous night. The patient has been increasingly anxious. She has been removed back to the opposite side of the hallway because she has screened positive for Covid-19 again today. The patients oxygen saturations are in the 80s on 5 L. She has been somewhat hypotensive and I will defer medical management to Dr. Lowe/Dr. Ryan. I met with her in her room. Review of Systems: Ambulation impaired, in wheelchair. No CV, , eye, ENT system symptoms on review. Shortness of breath on O2 supplements. Mental Status Exam: The patient is reasonably oriented. Speech coherent has some latency. Abstraction fair. Computation impaired. Language function intact. Mood and affect withdrawn. No suicidal ideation. Laboratory Data: Reviewed. Impression: Schizoaffective disorder, bipolar type, depressed. Anxiety disorder unspecified. Impulse control disorder unspecified. Major depressive disorder, with history of psychotic features. Plan: Maintain rest of the psychotropics unchanged from initial note. We will defer medical management to Dr. Lowe/Dr. Ryan. Assessment: Vital Signs/I&O: Vital Signs Date Time Temp Pulse Resp B/P (MAP) Pulse Ox O2 Delivery O2 Flow Rate FiO2 04/24/21 06:19 98.4 81 24 111/64 (80) 100 5.0 04/23/21 15:30 Nasal Cannula I & O 04/23/21 04/23/21 04/24/21 15:00 23:00 07:00 Intake Total 840 ml 360 ml Balance 840 ml 360 ml Labs: Laboratory Tests Test 04/24/21 05:45 04/24/21 06:14 Blood pH 7.50 (7.35-7.45) H Blood Gas PCO2 75 mmHg (35-45) *H Blood Gas PO2 143 mmHg (80-100) H Blood Gas HCO3 58 mmol/L (22-26) H Arterial Bld O2 Saturation (Calc) 99 % (92-99) FiO2 38 % White Blood Count 6.9 x10^3/uL (4.0-11.0) Red Blood Count 3.49 x10^6/uL (3.50-5.40) L Hemoglobin 9.3 g/dL (12.0-15.5) L Hematocrit 28.9 % (36.0-47.0) L Mean Corpuscular Volume 83 fL (79-100) Mean Corpuscular Hemoglobin 27 pg (25-35) Mean Corpuscular Hemoglobin Concent 32 g/dL (31-37) Red Cell Distribution Width 17.3 % (11.5-14.5) H Platelet Count 244 x10^3/uL (140-400) Neutrophils (%) (Auto) 71 % (31-73) Lymphocytes (%) (Auto) 12 % (24-48) L Monocytes (%) (Auto) 14 % (0-9) H Eosinophils (%) (Auto) 3 % (0-3) Basophils (%) (Auto) 1 % (0-3) Neutrophils # (Auto) 4.9 x10^3uL (1.8-7.7) Lymphocytes # (Auto) 0.8 x10^3/uL (1.0-4.8) L Monocytes # (Auto) 1.0 x10^3/uL (0.0-1.1) Eosinophils # (Auto) 0.2 x10^3/uL (0.0-0.7) Basophils # (Auto) 0.0 x10^3/uL (0.0-0.2) D-Dimer (Kelli) 1.83 mg/L (0.00-0.50) H Sodium Level 132 mmol/L (136-145) L Potassium Level 2.7 mmol/L (3.5-5.1) *L Chloride Level 83 mmol/L (98-107) L Carbon Dioxide Level > 45 mmol/L (21-32) H Anion Gap 4 (6-14) L Blood Urea Nitrogen 41 mg/dL (7-20) H Creatinine 1.1 mg/dL (0.6-1.0) H Estimated GFR (Cockcroft-Gault) 49.5 BUN/Creatinine Ratio 37 (6-20) H Glucose Level 90 mg/dL (70-99) Lactic Acid Level 0.8 mmol/L (0.4-2.0) Calcium Level 9.3 mg/dL (8.5-10.1) Total Bilirubin 0.6 mg/dL (0.2-1.0) Aspartate Amino Transferase (AST) 22 U/L (15-37) Alanine Aminotransferase (ALT) 12 U/L (14-59) L Alkaline Phosphatase 86 U/L (46-116) QR-Uik-Q-Type Natriuretic Peptide 9705 pg/mL (0-124) H Total Protein 7.3 g/dL (6.4-8.2) Albumin 3.1 g/dL (3.4-5.0) L Albumin/Globulin Ratio 0.7 (1.0-1.7) L Current Medications: I have reviewed the current psychotropics carefully including drug interactions. Risk benefit ratio favors no change other than as noted in my dictated progress note. Diagnosis: Problems: (1) Schizoaffective disorder, bipolar type (2) Impulse control disorder, unspecified (3) Anxiety disorder, unspecified (4) Major depressive disorder with psychotic features MICHAEL CLARK MD Apr 24, 2021 07:34
--- NOTE | 2021-04-24 21:48 | PDOC ---
Exam Note: [place] Note: Please also refer to the separate dictated note~for this date of service dictated separately.~Patient seen individually. Discussed the patient with Nursing staff reviewed the chart.~Reviewed interim history and current functioning. Reviewed vital signs,~Labs/ Radiology~and current medications noted below. Continue current treatment with the changes noted in the dictated addendum note Assessment: Vital Signs/I&O: Vital Signs Date Time Temp Pulse Resp B/P (MAP) Pulse Ox O2 Delivery O2 Flow Rate FiO2 04/24/21 06:19 98.4 81 24 111/64 (80) 100 5.0 04/23/21 15:30 Nasal Cannula I & O 04/23/21 04/23/21 04/24/21 15:00 23:00 07:00 Intake Total 840 ml 360 ml Balance 840 ml 360 ml Labs: Laboratory Tests Test 04/24/21 05:45 04/24/21 06:14 Blood pH 7.50 (7.35-7.45) H Blood Gas PCO2 75 mmHg (35-45) *H Blood Gas PO2 143 mmHg (80-100) H Blood Gas HCO3 58 mmol/L (22-26) H Arterial Bld O2 Saturation (Calc) 99 % (92-99) FiO2 38 % White Blood Count 6.9 x10^3/uL (4.0-11.0) Red Blood Count 3.49 x10^6/uL (3.50-5.40) L Hemoglobin 9.3 g/dL (12.0-15.5) L Hematocrit 28.9 % (36.0-47.0) L Mean Corpuscular Volume 83 fL (79-100) Mean Corpuscular Hemoglobin 27 pg (25-35) Mean Corpuscular Hemoglobin Concent 32 g/dL (31-37) Red Cell Distribution Width 17.3 % (11.5-14.5) H Platelet Count 244 x10^3/uL (140-400) Neutrophils (%) (Auto) 71 % (31-73) Lymphocytes (%) (Auto) 12 % (24-48) L Monocytes (%) (Auto) 14 % (0-9) H Eosinophils (%) (Auto) 3 % (0-3) Basophils (%) (Auto) 1 % (0-3) Neutrophils # (Auto) 4.9 x10^3uL (1.8-7.7) Lymphocytes # (Auto) 0.8 x10^3/uL (1.0-4.8) L Monocytes # (Auto) 1.0 x10^3/uL (0.0-1.1) Eosinophils # (Auto) 0.2 x10^3/uL (0.0-0.7) Basophils # (Auto) 0.0 x10^3/uL (0.0-0.2) D-Dimer (Kelli) 1.83 mg/L (0.00-0.50) H Sodium Level 132 mmol/L (136-145) L Potassium Level 2.7 mmol/L (3.5-5.1) *L Chloride Level 83 mmol/L (98-107) L Carbon Dioxide Level > 45 mmol/L (21-32) H Anion Gap 4 (6-14) L Blood Urea Nitrogen 41 mg/dL (7-20) H Creatinine 1.1 mg/dL (0.6-1.0) H Estimated GFR (Cockcroft-Gault) 49.5 BUN/Creatinine Ratio 37 (6-20) H Glucose Level 90 mg/dL (70-99) Lactic Acid Level 0.8 mmol/L (0.4-2.0) Calcium Level 9.3 mg/dL (8.5-10.1) Total Bilirubin 0.6 mg/dL (0.2-1.0) Aspartate Amino Transferase (AST) 22 U/L (15-37) Alanine Aminotransferase (ALT) 12 U/L (14-59) L Alkaline Phosphatase 86 U/L (46-116) PE-Kij-G-Type Natriuretic Peptide 9705 pg/mL (0-124) H Total Protein 7.3 g/dL (6.4-8.2) Albumin 3.1 g/dL (3.4-5.0) L Albumin/Globulin Ratio 0.7 (1.0-1.7) L Current Medications: Meds: Laboratory Tests Test 04/24/21 05:45 04/24/21 06:14 Blood Gas pH 7.50 Blood Gas PCO2 75 mmHg Blood Gas PO2 143 mmHg Blood Gas HCO3 58 mmol/L Arterial Bld O2 Saturation (Calc) 99 % FiO2 38 % White Blood Count 6.9 x10^3/uL Red Blood Count 3.49 x10^6/uL Hemoglobin 9.3 g/dL Hematocrit 28.9 % Mean Corpuscular Volume 83 fL Mean Corpuscular Hemoglobin 27 pg Mean Corpuscular Hemoglobin Concent 32 g/dL Red Cell Distribution Width 17.3 % Platelet Count 244 x10^3/uL Neutrophils (%) (Auto) 71 % Lymphocytes (%) (Auto) 12 % Monocytes (%) (Auto) 14 % Eosinophils (%) (Auto) 3 % Basophils (%) (Auto) 1 % Neutrophils # (Auto) 4.9 x10^3uL Lymphocytes # (Auto) 0.8 x10^3/uL Monocytes # (Auto) 1.0 x10^3/uL Eosinophils # (Auto) 0.2 x10^3/uL Basophils # (Auto) 0.0 x10^3/uL D-Dimer (Kelil) 1.83 mg/L Sodium Level 132 mmol/L Potassium Level 2.7 mmol/L Chloride Level 83 mmol/L Carbon Dioxide Level > 45 mmol/L Anion Gap 4 Blood Urea Nitrogen 41 mg/dL Creatinine 1.1 mg/dL Estimated GFR (Cockcroft-Gault) 49.5 BUN/Creatinine Ratio 37 Glucose Level 90 mg/dL Lactic Acid Level 0.8 mmol/L Calcium Level 9.3 mg/dL Total Bilirubin 0.6 mg/dL Aspartate Amino Transf (AST/SGOT) 22 U/L Alanine Aminotransferase (ALT/SGPT) 12 U/L Alkaline Phosphatase 86 U/L MS-Ddd-R-Type Natriuretic Peptide 9705 pg/mL Total Protein 7.3 g/dL Albumin 3.1 g/dL Albumin/Globulin Ratio 0.7 Current Medications Medications (Trade) Dose Ordered Sig/Indra Route PRN Reason Start Time Stop Time Status Last Admin Dose Admin Albuterol Sulfate (Ventolin) 1 mg PRN Q4HRS PRN IH FOR ASTHMA 04/02/21 12:00 UNV Amlodipine Besylate (Norvasc) 5 mg DAILY PO 04/03/21 09:00 04/02/21 13:08 DC Aripiprazole (Abilify) 15 mg DAILY PO 04/03/21 09:00 04/24/21 08:06 DC 04/23/21 08:38 Aspirin (Aspirin Enteric Coated) 81 mg DAILY PO 04/03/21 09:00 04/24/21 08:06 DC 04/23/21 08:37 Atorvastatin Calcium (Lipitor) 20 mg QHS PO 04/02/21 21:00 04/24/21 08:06 DC 04/23/21 20:20 Calcium/Vitamin D (Oscal D 500mg/ 200uts) 1 tab BID PO 04/02/21 21:00 04/02/21 13:08 DC Vitamin D (Vitamin D3) 50,000 unit QWE PO 04/03/21 16:00 04/02/21 13:08 DC Clonazepam (KlonoPIN) 0.5 mg PRN BID PRN PO ANXIETY / AGITATION 04/02/21 12:00 Cancel Diclofenac Sodium (Voltaren) 2 joesph QID TP 04/02/21 13:00 04/24/21 08:06 DC 04/23/21 21:00 Divalproex Sodium (Depakote Er) 500 mg HS PO 04/02/21 21:00 04/02/21 13:08 DC Docusate Sodium (Colace) 100 mg BID PO 04/02/21 21:00 04/02/21 13:08 DC Enoxaparin Sodium (Lovenox 40mg Syringe) 40 mg HS SQ 04/02/21 21:00 04/02/21 13:08 DC Ferrous Sulfate (Feosol) 325 mg DAILY PO 04/03/21 09:00 04/02/21 13:08 DC Furosemide (Lasix) 40 mg DAILY PO 04/03/21 09:00 04/02/21 13:08 DC Isosorbide Mononitrate (Imdur) 30 mg DAILY08 PO 04/03/21 08:00 04/24/21 08:06 DC 04/23/21 08:38 Ketoconazole (Nizoral 2% Shampoo) 1 joesph PRN DAILY PRN TP DANDRUFF 04/02/21 12:00 04/02/21 13:08 DC Levothyroxine Sodium (Synthroid) 75 mcg DAILY06 PO 04/03/21 06:00 04/24/21 08:06 DC 04/24/21 05:34 Metoprolol Tartrate (Lopressor) 12.5 mg BID PO 04/02/21 21:00 04/24/21 08:06 DC 04/21/21 19:58 Olanzapine (ZyPREXA ZYDIS) 2.5 mg PRN Q2HR PRN PO ANXIETY / AGITATION 04/02/21 12:00 04/02/21 13:08 DC Pantoprazole Sodium (Protonix) 40 mg DAILY08 PO 04/03/21 08:00 04/24/21 08:06 DC 04/23/21 08:38 Polyethylene Glycol (miraLAX) 17 gm PRN BID PRN PO CONSTIPATION, 1ST CHOICE 04/02/21 12:00 04/24/21 08:06 DC 04/19/21 17:23 Potassium Chloride (Klor-Con) 20 meq BID PO 04/02/21 21:00 04/12/21 10:44 DC 04/11/21 20:15 Ropinirole HCl (Requip) 0.5 mg HS PO 04/02/21 21:00 04/24/21 08:06 DC 04/23/21 20:19 Sennosides (Senna) 8.6 mg BIDACBL PO 04/03/21 07:30 04/02/21 13:08 DC Tramadol HCl (Ultram) 50 mg PRN Q6HRS PRN PO MOD -SEV PAIN 04/02/21 12:00 04/02/21 13:08 DC Triamcinolone Acetonide (Kenalog) 1 joesph PRN Q12HR PRN TP ITCHING 04/02/21 12:00 04/02/21 13:08 DC Vitamin A/Vitamin D (Vitamin A & D Ointment) 1 joesph PRN Q1HR PRN TP DRY SKIN / SCALING 04/02/21 12:00 04/02/21 13:08 DC Non-Formulary Medication (Fluoxetine Hcl (Prozac)) 80 mg DAILY08 PO 04/03/21 08:00 04/02/21 13:08 DC Multi-Ingredient Ointment (Analgesic [place]) 1 joesph PRN QID PRN TP MUSCLE PAIN 04/02/21 12:45 04/24/21 08:06 DC Non-Formulary Medication (Olodaterol HCl (Striverdi Respimat)) 2 puff DAILY IH 04/03/21 09:00 04/02/21 13:08 DC Non-Formulary Medication (Quetiapine Fumarate (Seroquel)) 300 mg DAILY08 PO 04/03/21 08:00 04/02/21 13:08 DC Non-Formulary Medication (Quetiapine Fumarate (Seroquel)) 600 mg HS PO 04/02/21 21:00 04/02/21 13:08 DC Acetaminophen (Tylenol) 650 mg PRN Q6HRS PRN PO MILD PAIN / TEMP > 100.3'F 04/02/21 12:30 04/24/21 08:06 DC 04/23/21 23:00 Al Hydroxide/Mg Hydroxide (Mylanta Plus Xs) 15 ml PRN AFTMEALHC PRN PO DYSPEPSIA 04/02/21 12:30 04/24/21 08:06 DC 04/20/21 08:50 Magnesium Hydroxide (Milk Of Magnesia) 2,400 mg PRN QHS PRN PO CONSTIPATION, 2ND CHOICE 04/02/21 12:30 04/24/21 08:06 DC 04/23/21 08:40 Albuterol Sulfate (Ventolin Hfa Inhaler) 1 puff PRN Q4HRS PRN INH SOA 04/02/21 12:45 04/24/21 08:06 DC 04/04/21 09:12 Albuterol Sulfate (Ventolin) 1 mg PRN Q4HRS PRN IH FOR ASTHMA 04/02/21 13:00 UNV Albuterol/ Ipratropium (Duoneb) 3 ml PRN QID PRN NEB copd 04/02/21 13:00 UNV Non-Formulary Medication (Umeclidinium [place] (Incruse Ellipta)) 62.5 mcg DAILY IH 04/03/21 09:00 UNV Furosemide (Lasix) 80 mg BID94 PO 04/02/21 16:00 04/06/21 16:01 DC 04/06/21 09:03 Fluoxetine HCl (PROzac) 30 mg DAILY08 PO 04/03/21 08:00 04/21/21 18:34 DC 04/21/21 08:32 Quetiapine Fumarate (SEROquel) 100 mg HS PO 04/02/21 21:00 04/24/21 08:06 DC 04/23/21 20:19 Albuterol/ Ipratropium (Combivent Respimat 20-100 Mcg) 1 puff RTQID INH 04/02/21 16:00 04/24/21 08:06 DC 04/24/21 05:54 Fluticasone Furoate (ARNUITY 100mcg ELLIPTA) 1 puff DAILY INH 04/03/21 09:00 04/24/21 08:06 DC 04/24/21 05:54 Hydroxyzine HCl (Atarax) 25 mg PRN Q8HRS PRN PO ANXIETY / AGITATION 04/02/21 14:15 04/04/21 17:36 DC Divalproex Sodium (Depakote) 125 mg DAILY PO 04/04/21 09:00 04/08/21 17:07 DC 04/08/21 08:31 Divalproex Sodium (Depakote) 375 mg HS PO 04/03/21 21:00 04/08/21 17:07 DC 04/07/21 20:03 Trazodone HCl (Desyrel) 50 mg PRN QHS PRN PO INSOMNIA, MAY REPEAT X1 04/04/21 17:15 04/24/21 08:06 DC 04/23/21 23:00 Hydroxyzine HCl (Atarax) 50 mg PRN Q6HRS PRN PO anxiety 04/04/21 17:15 04/24/21 08:06 DC 04/23/21 20:22 Furosemide (Lasix) 80 mg DAILY PO 04/07/21 09:00 04/17/21 07:23 DC 04/16/21 08:19 Divalproex Sodium (Depakote) 500 mg HS PO 04/08/21 21:00 04/24/21 08:06 DC 04/23/21 20:20 Divalproex Sodium (Depakote) 250 mg DAILY PO 04/09/21 09:00 04/24/21 08:06 DC 04/23/21 08:38 Sodium Chloride (Saline Mist Nasal) 1 joesph PRN Q1HR PRN NS NASAL CONGESTION 04/10/21 14:30 04/24/21 08:06 DC 04/24/21 05:54 Quetiapine Fumarate (SEROquel) 12.5 mg 0900,1300,1700 PO 04/17/21 09:00 04/24/21 08:06 DC 04/23/21 17:59 Furosemide (Lasix) 80 mg BID92 PO 04/17/21 09:00 04/24/21 08:06 DC 04/23/21 12:28 Metolazone (Zaroxolyn) 2.5 mg DAILY PO 04/18/21 09:00 04/24/21 08:06 DC 04/23/21 08:37 Fluoxetine HCl (PROzac) 40 mg DAILY08 PO 04/22/21 08:00 04/24/21 08:06 DC 04/23/21 08:39 I have reviewed the current psychotropics carefully including drug interactions. Risk benefit ratio favors no change other than as noted in my dictated progress note. Diagnosis: Problems: (1) Schizoaffective disorder, bipolar type (2) Impulse control disorder, unspecified (3) Anxiety disorder, unspecified (4) Major depressive disorder with psychotic features MICHAEL CLARK MD Apr 24, 2021 21:48
--- NOTE | 2021-04-25 22:12 | DS ---
DATE OF DISCHARGE: 04/24/2021 DISCHARGE SUMMARY/PSYCHIATRIC PROGRESS NOTE This is a late entry, date of service 04/24, covers elements not covered in my initial note of 04/24. REASON FOR ADMISSION: Please refer to the admission history for details. Briefly, the patient is a 65-year-old female referred to us from [facility] in [facility] on account of marked mood lability, crying spells, suicidal ideation with a plan and attempt to hurt herself with a fork. She was complaining of auditory hallucinations, angry, threatening to jump from the window. She had failed outpatient psychiatric interventions. Behaviors were deemed dangerous, unmanageable, resulting in this referral. SIGNIFICANT FINDINGS AND CLINICAL COURSE: Following admission, the patient was seen daily individually by myself from a psychiatric standpoint, medical followup, Dr. Lowe/Dr. Ryan. She remained quite depressed, withdrawn, angry, paranoid, and irritable. Adjustments were made in her psychotropics and she seemed to be responding gradually to a combination of Depakote 250 mg a.m., 500 mg at bedtime with a valproic acid level of 57, therapeutic. Abilify was 15 mg a day, Seroquel 100 mg at bedtime, Requip 0.5 mg at bedtime, Prozac 40 mg a day, hydroxyzine p.r.n., and Seroquel 12.5 mg 9 a.m., 1:00 p.m., 5:00 p.m. On 04/24, the patient's pulmonary condition appeared to deteriorate. O2 sats were dropping into the 80s on [address] Lowe/Dr. Ryan transferred the patient to the medical surgical floor for stabilization. Her COVID-19 screening test was positive as well. Repeat has been ordered. Prior to discharge, we reduced her Abilify to 5 mg a day and reduced the Seroquel in an attempt to reduce any sedation consequent of the psychotropics given her reduction in pulmonary function. We would be happy to have her back on our unit when she is medically stabilized and if placement could not be found by them. PRIOR TO DISCHARGE REVIEW OF SYSTEMS: Shortness of breath, impaired ambulation in wheelchair. No CV, GI, , ENT system symptoms on review. MENTAL STATUS EXAMINATION: Oriented to herself, situation. Speech is moderate, latency, often responses monosyllabic. Abstraction fair. Computation impaired. Language function intact. Mood and affect withdrawn. LABORATORY DATA: Reviewed. IMPRESSION: Schizoaffective disorder, bipolar type, depressed; anxiety disorder, unspecified; impulse control disorder, unspecified. Rest as above. DISCHARGE MEDICATIONS: Please refer to the MRAD. Psychiatric followup as requested on the medical surgical floor and we would be happy to have her back on the unit for further psychiatric stabilization and placement if necessary after medical stabilization. Time for discharge day management greater than [address]: Cooper TID: [id number]
== END 2021-04-24 08:05 | disposition short-term general hospital (02) | DRG 885 ==
LOC: GEROPSY 11:55
PROVIDERS: ADMIT Psychiatry & Neurology Psychiatry; ATTEND Psychiatry & Neurology Psychiatry
DX: F25.0 Schizoaffective disorder, bipolar type (principal); U07.1 COVID-19; I11.0 Hypertensive heart disease with heart failure; R45.851 Suicidal ideations; E03.9 Hypothyroidism, unspecified; E78.00 Pure hypercholesterolemia, unspecified; E78.5 Hyperlipidemia, unspecified; F17.200 Nicotine dependence, unspecified, uncomplicated; F41.0 Panic disorder [episodic paroxysmal anxiety]; F41.1 Generalized anxiety disorder; F43.10 Post-traumatic stress disorder, unspecified; Z81.1 Family history of alcohol abuse and dependence; Z85.118 Personal history of other malignant neoplasm of bronchus and lung; F60.0 Paranoid personality disorder; Z79.899 Other long term (current) drug therapy; F60.3 Borderline personality disorder; F63.9 Impulse disorder, unspecified; G47.33 Obstructive sleep apnea (adult) (pediatric); G25.81 Restless legs syndrome; I50.9 Heart failure, unspecified; J44.9 Chronic obstructive pulmonary disease, unspecified; J84.10 Pulmonary fibrosis, unspecified; G89.29 Other chronic pain; K59.09 Other constipation; Z88.8 Allergy status to other drugs, medicaments and biological substances; Z74.01 Bed confinement status
CPT/HCPCS: 36415; 36600; 71045; 71046; 73560; 80053; 80061; 80164; 81001; 82306; 82607; 82803; 83036; 83540; 83550; 83605; 83735; 83880; 84436; 84443; 84480; 85025; 85379; 86592; 87086; 93005; U0003; 97110; 97116; 97530